=== PATIENT | female | born 1970 | race Caucasian/White ===

== ENCOUNTER 2017-01-25 22:48 | Emergency (ER) | payer MEDICARE ==
[2017-01-25 22:54] VITALS: BP 166/96
[2017-01-26] MEDS ORDERED: NORMAL SALINE 1000 ML 1,000 ML IV ONE ×2 (01:29→03:55)
[2017-01-26] MEDS ORDERED: ONDANSETRON HCL INJ/PF 4 MG/2 ML SDV IV ONE (01:29)
--- NOTE | 2017-01-26 01:35 | ER Document Report ---
ED General - General Chief Complaint: Nausea/Vomiting Stated Complaint: VOMITING Time Seen by Provider: 01/26/17 01:20 Notes: Patient is a 46-year-old female presents with complaint of vomiting all day. She has some normal pain. Pain is mostly in the left lower quadrant. No fevers. No diarrhea. Last bowel movement was 3 days ago. She says it is not abnormal for her to go that long without having bowel movements. She is on chronic pain medication. She is visiting from out of town. She is from [place]. She had recent surgery on her left lower leg. She had a femoral artery bypass performed. This was done at [facility] in [facility]. She says this has not given her any problems except for slight opening of the incision on the medial left thigh. No redness or swelling to the area. She denies any blood in her emesis. She denies any chest pain. She does have a history of coronary bypass surgery. She also has a history of acute renal failure requiring dialysis for 2 months back in the spring. She is also diabetic. She is insulin controlled. She says she has not taken her insulin today because of her vomiting. She has also not check her blood sugar. TRAVEL OUTSIDE OF THE U.S. IN LAST 30 DAYS: No - Related Data Allergies/Adverse Reactions: amlodipine Allergy (Verified 07/20/16 15:25) isosorbide [From Imdur] Allergy (Verified 07/20/16 15:25) zolpidem [From Ambien] Allergy (Verified 07/20/16 15:25) Past Medical History - Social History Smoking Status: Unknown if Ever Smoked Frequency of alcohol use: None Drug Abuse: None Family History: Reviewed & Not Pertinent Patient has suicidal ideation: No Patient has homicidal ideation: No - Past Medical History Cardiac Medical History: Reports: Hx Congestive Heart Failure, Hx DVT, Hx Heart Attack Renal/ Medical History: Denies: Hx Peritoneal Dialysis Past Surgical History: Reports: Hx Cardiac Surgery - CABG, Hx Coronary Artery Bypass Graft - x3 Review of Systems - Review of Systems Notes: My Normal Review Basic REVIEW OF SYSTEMS: CONSTITUTIONAL : Denies fever, chills, or sweats. Denies recent illness. EENT: Denies eye, ear, throat, or mouth pain or symptoms. Denies nasal or sinus congestion. CARDIOVASCULAR: Denies chest pain. RESPIRATORY: Denies cough, cold, or chest congestion. Denies shortness of breath, difficulty breathing, or wheezing. GASTROINTESTINAL: Some abdominal pain. Recurrent vomiting. Last BM: 3 days ago GENITOURINARY: Denies difficulty urinating, painful urination, burning, frequency, or blood in urine. MUSCULOSKELETAL: Denies neck or back pain or joint pain or swelling. SKIN: Denies rash or skin lesions. NEUROLOGICAL: Denies altered mental status or loss of consciousness. Denies headache. Denies weakness or paralysis or loss of use of either side. Denies problems with gait or speech. Denies sensory or motor loss. ALL OTHER SYSTEMS REVIEWED AND NEGATIVE. Physical Exam - Vital signs Vitals: Temp Pulse Resp BP Pulse Ox 98.3 F 115 H 20 166/96 H 98 01/25/17 22:49 01/25/17 22:49 01/25/17 22:49 01/25/17 22:49 01/25/17 22:49 - Notes Notes: General Appearance: Well nourished, alert, cooperative, no acute distress, mild obvious discomfort. Vitals: reviewed, See vital signs table. Head: no swelling or tenderness to the head Eyes: PERRL, EOMI, Conjuctiva clear Mouth: No decreasd moisture Lungs: No wheezing, No rales, No rhonci, No accessory muscle use, good air exchange bilaterally. Heart: Normal rate, Regular rythm, No murmur, no rub. Scar on chest wall from previous open heart surgery. Abdomen: Normal BS, soft, No rigidity, mild left lower quadrant abdominal tenderness to palpation, No guarding, no rebound, no abdominal masses, no organomegaly. Multiple scars on abdomen from previous surgeries. Extremities: , good pulses in all extremities, no swelling or tenderness in the extremities, patient has a scar at the left inguinal crease. There is just slight separation of the incisional scar. There is no surrounding redness or erythema. No signs of abscess. Patient has a long incisional scar on the left medial thigh. This appears to be healing appropriately. Patient has good capillary refill in all toes of her left leg. Patient has a small wound on the medial aspect of the left foot which appears to be healing appropriately without signs of infection. Patient has a below the knee right sided amputation. No edema. Skin: warm, dry, appropriate color, no rash Neuro: speech clear, oriented x 3, normal affect, responds appropriately to questions. Course - Re-evaluation Re-evalutation: 01/27/17 00:19 Symptoms very consistent with that of gastroparesis. She has had that several times in the past. She does take Reglan at home but was unable to hold down today. She also had hyperglycemia. She has not been taking her insulin and was not checking her blood sugars. Her blood sugars are now trending in the correct direction. She still some nausea but is no longer vomiting says that she feels that she is improving. I will discharge her home with prescription for Phenergan. I encouraged her to continue take her Reglan. I encouraged her to keep a close eye on her blood sugars. I encouraged her to return to the ER if she has worsening of her blood sugars, recurrent vomiting, worsening abdominal pain, or she feels unwell. Patient agrees with plan and will be discharged home. Dictation of this chart was performed using voice recognition software; therefore, there may be some unintended grammatical errors. - Vital Signs Vital signs: Temp Pulse Resp BP Pulse Ox 98.3 F 115 H 20 166/96 H 98 01/25/17 22:49 01/25/17 22:49 01/25/17 22:49 01/25/17 22:49 01/26/17 06:57 - Laboratory Result Diagrams: 01/26/17 02:14 01/26/17 02:14 Laboratory results interpreted by me: 01/26/17 01/26/17 01/26/17 01:53 02:14 02:14 WBC 11.0 H RBC 5.34 H RDW 17.2 H Seg Neutrophils % 78.9 H Monocytes % 2.7 L Absolute Neutrophils 8.7 H Chloride 97 L Anion Gap 20 H Glucose 396 H POC Glucose 364 H Calcium 10.3 H Direct Bilirubin 0.6 H Alkaline Phosphatase 140 H Total Protein 9.0 H Urine Protein Urine Glucose (UA) Urine Ketones Urine Blood Ur Leukocyte Esterase 01/26/17 01/26/17 05:33 06:13 WBC RBC RDW Seg Neutrophils % Monocytes % Absolute Neutrophils Chloride Anion Gap Glucose POC Glucose 224 H Calcium Direct Bilirubin Alkaline Phosphatase Total Protein Urine Protein >=500 H Urine Glucose (UA) >=500 H Urine Ketones TRACE H Urine Blood SMALL H Ur Leukocyte Esterase TRACE H - EKG Interpretation by Me Additional EKG results interpreted by me: 01/26/17 03:53 EKG shows sinus tachycardia with rate of [address] segment elevation. Some ST segment depression in the lateral leads which is unchanged in comparison to her old EKG from July 20, 2016. ME interval, QRS duration, QTc intervals are within normal range. Discharge - Discharge Clinical Impression: Gastroparesis, Hyperglycemia Vomiting Qualifiers: Vomiting type: unspecified Vomiting Intractability: unspecified Nausea presence : with nausea Qualified Code(s): R11.2 - Nausea with vomiting, unspecified Condition: Good Disposition: HOME, SELF-CARE Additional Instructions: Please return to the ER immediately if you have worsening abdominal pain, fevers , recurrent vomiting, or your blood sugars are not well controlled. Prescriptions: Promethazine HCl [Phenergan 25 mg Supp.rect] 25 mg ME Q4HP PRN #12 supp.rect PRN Reason:
[2017-01-26] MEDS ORDERED: MORPHINE SULFATE 10 MG/ML INJ IV ONE (01:46)
[2017-01-26 02:26] LABS: ABSOLUTE BASOPHILS # (AUTO) 0.1 10^3/uL (0.0-0.2); ABSOLUTE LYMPHOCYTES (AUTO) 1.9 10^3/uL (0.5-4.7); ABSOLUTE MONOCYTES (AUTO) 0.3 10^3/uL (0.1-1.4); ABSOLUTE NEUT (AUTO) 8.7 10^3/uL (1.7-8.2); BASOPHILS % (AUTO) 0.8 % (0-2); EOSINOPHILS % (AUTO) 0.2 % (0-6); HEMATOCRIT 43.7 % (36.0-47.0); HEMOGLOBIN 14.5 g/dL (12.0-15.5); HGB HCT DIFFERENCE -0.2; LYMPHOCYTES % (AUTO) 17.4 % (13-45); MEAN CORPUSCULAR HEMOGLOBIN 27.2 pg (27.0-33.4); MEAN CORPUSCULAR HGB CONC 33.2 g/dL (32.0-36.0); MEAN CORPUSCULAR VOLUME 82 fl (80-97); MONOCYTES % (AUTO) 2.7 % (3-13); RED BLOOD COUNT 5.34 10^6/uL (3.72-5.28); RED CELL DISTRIBUTION WIDTH 17.2 % (11.5-14.0); SEGMENTED NEUTROPHILS % (AUTO) 78.9 % (42-78)
--- NOTE | 2017-01-26 03:28 | RADIOLOGY REPORT (SQ) ---
EXAM DESCRIPTION: ACUTE ABDOMEN SERIES COMPLETED DATE/TIME: 01/26/2017 3:08 am REASON FOR STUDY: abdominal pain COMPARISON: CR, chest, 07/20/2016. NUMBER OF VIEWS: Three views. 4 images. TECHNIQUE: Frontal chest, supine abdomen and upright/decubitus abdomen radiographic images acquired. LIMITATIONS: None. FINDINGS: CHEST: Lungs clear of infiltrates. FREE AIR: None. No abnormal gas collections. BOWEL GAS PATTERN: Nonobstructive pattern. No dilated loops or air fluid levels. CALCIFICATIONS: No suspicious calcifications. HARDWARE: Sternotomy. Electronic stimulation device of the right paracentral pelvis. Surgical clips of the lower pelvis, bilateral groin, and right upper abdominal quadrant. Residual wire leads overl ie the lower chest. SOFT TISSUES: No gross mass or suggestion of organomegaly. BONES: No acute fracture. No worrisome bone lesions. OTHER: No other significant finding. IMPRESSION: NO RADIOGRAPHIC EVIDENCE FOR ACUTE ABDOMINAL DISEASE. TECHNICAL DOCUMENTATION: JOB ID: [id number] [employer]- All Rights Reserved
[2017-01-26 03:38] LABS: ALANINE AMINOTRANSFERASE 19 U/L (9-52); ALBUMIN 4.7 g/dL (3.5-5.0); ALKALINE PHOSPHATASE 140 U/L (38-126); ASPARTATE AMINO TRANSFERASE 16 U/L (14-36); BILIRUBIN,DIRECT 0.6 mg/dL (0.0-0.4); BLOOD UREA NITROGEN 17 mg/dL (7-20); CALCIUM 10.3 mg/dL (8.4-10.2); CARBON DIOXIDE 24 mmol/L (22-30); CHLORIDE 97 mmol/L (98-107); CREATININE RESULT 0.61 mg/dL (0.52-1.25); GLUCOSE 396 mg/dL (75-110); LIPASE 58.6 U/L (23-300); POTASSIUM 4.1 mmol/L (3.6-5.0); SODIUM 140.9 mmol/L (137-145)
[2017-01-26 03:39] LABS: ANION GAP 20 (5-19)
[2017-01-26] MEDS ORDERED: INSULIN REG, HUMAN 100 UNIT/ML 3 ML VIAL (PYX) SUBCUT ONE (03:50)
[2017-01-26] MEDS ORDERED: METOCLOPRAMIDE HCL INJ/PF 10 MG/2 ML SDV IV ONE (03:51)
[2017-01-26] MEDS ORDERED: PROMETHAZINE HCL INJ 50 MG/1 ML VIAL IM ONE (05:00)
[2017-01-26] MEDS ORDERED: PROMETHAZINE HCL INJ 25 MG/1 ML VIAL ONE (05:13)
[2017-01-26 06:31] LABS: APPEARANCE,URINE SLIGHTLY-CLOUDY; BILIRUBIN,URINE NEGATIVE (NEGATIVE); GLUCOSE, URINE >=500 mg/dL (NEGATIVE); KETONES,URINE TRACE mg/dL (NEGATIVE); LEUKOCYTE ESTERASE,URINE TRACE (NEGATIVE); NITRITE,URINE NEGATIVE (NEGATIVE); PROTEIN,URINE >=500 mg/dL (NEGATIVE); UROBILINOGEN,URINE NEGATIVE mg/dL (<2.0)
--- NOTE | 2017-01-26 08:15 | EKG REPORT ---
SEVERITY:- ABNORMAL ECG - SINUS TACHYCARDIA PROBABLE LEFT ATRIAL ABNORMALITY PROBABLE LVH WITH SECONDARY REPOL ABNRM PROBABLE INFERIOR INFARCT, AGE INDETERMINATE CONSIDER ANTERIOR INFARCT : Confirmed by: Rojas Jo MD 26-Jan-2017 08:14:29
== END 2017-01-26 07:39 | disposition home or self-care (01) ==
LOC: ER 22:48
DX: E11.43 Type 2 diabetes mellitus with diabetic autonomic (poly)neuropathy (principal); E11.65 Type 2 diabetes mellitus with hyperglycemia; K31.84 Gastroparesis; R11.2 Nausea with vomiting, unspecified; R10.32 Left lower quadrant pain; Z79.4 Long term (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 of insulin
CPT/HCPCS: 93005; 99284; 96361; 96374; 96375; 36415; 82962; 83690; 85025; 80053; 81001; 74022; 93010; J2765; J2270; A9270; J2550; J2405; J7030; J1815

== ENCOUNTER → 2017-02-15 | Outpatient (CLI) | payer MEDICARE ==
[2017-02-15 13:45] LABS: LIPASE 31.6 U/L (23-300)
--- NOTE | 2017-02-15 18:43 | RADIOLOGY REPORT (SQ) ---
EXAM DESCRIPTION: U/S ABDOMEN LIMITED W/O DOP COMPLETED DATE/TIME: 02/15/2017 6:22 pm REASON FOR STUDY: LUQ ABDOMINAL PAIN COMPARISON: None. TECHNIQUE: Sonographic sections through the left upper quadrant were obtained in varying positions. LIMITATIONS: None. FINDINGS: No splenic abnormalities are identified. The spleen measures 11.3 cm in length. No left renal abnormalities are identified. The left kidney measure 11.6 cm in length. The pancreas was juan jose ged without evidence for pancreatic masses. Pancreatic duct appeared normal. No cystic abnormalitie s were identified. IMPRESSION: No significant findings. TECHNICAL DOCUMENTATION: JOB ID: [id number] [employer]- All Rights Reserved
== END ==
LOC: LAB 13:06
PROVIDERS: ATTEND Student in an Organized Health Care Education/Training Program
DX: R10.84 Generalized abdominal pain (principal)
CPT/HCPCS: 36415; 76705; 82150; 83690

== ENCOUNTER 2017-03-01 12:15 | Emergency (ER) | payer MEDICARE ==
[2017-03-01 13:03] LABS: ABSOLUTE BASOPHILS # (AUTO) 0.1 10^3/uL (0.0-0.2); ABSOLUTE EOSINOPHILS # (AUTO) 0.2 10^3/uL (0.0-0.6); ABSOLUTE LYMPHOCYTES (AUTO) 3.5 10^3/uL (0.5-4.7); ABSOLUTE MONOCYTES (AUTO) 0.4 10^3/uL (0.1-1.4); ABSOLUTE NEUT (AUTO) 5.7 10^3/uL (1.7-8.2); BASOPHILS % (AUTO) 0.6 % (0-2); EOSINOPHILS % (AUTO) 1.7 % (0-6); HEMATOCRIT 38.6 % (36.0-47.0); HEMOGLOBIN 12.7 g/dL (12.0-15.5); HGB HCT DIFFERENCE -0.5; LYMPHOCYTES % (AUTO) 35.4 % (13-45); MEAN CORPUSCULAR HEMOGLOBIN 27.2 pg (27.0-33.4); MEAN CORPUSCULAR HGB CONC 32.9 g/dL (32.0-36.0); MEAN CORPUSCULAR VOLUME 83 fl (80-97); MONOCYTES % (AUTO) 4.5 % (3-13); RED BLOOD COUNT 4.67 10^6/uL (3.72-5.28); RED CELL DISTRIBUTION WIDTH 15.8 % (11.5-14.0); SEGMENTED NEUTROPHILS % (AUTO) 57.8 % (42-78); WHITE BLOOD COUNT 9.8 10^3/uL (4.0-10.5)
--- NOTE | 2017-03-01 13:05 | ER Document Report ---
ED Blood Pressure Problem - General Information source: Patient TRAVEL OUTSIDE OF THE [place] IN LAST 30 DAYS: No - HPI Patient complains to provider of: Low blood pressure Associated symptoms: Other - see above <RENU FREDERICK - Last Filed: 03/01/17 12:59> <NENO CARRASCO - Last Filed: 03/01/17 19:26> - General Chief Complaint: Low Blood Pressure Stated Complaint: BLOOD PRESSURE Time Seen by Provider: 03/01/17 12:29 Notes: Patient is a 46 year old female who presents to the ED with complaints of being hypotensive. Patient has a history of being anemic. Her last known level in August was 4.5. Patient states she has been hypotensive in the past. Patient denies any bleeding anywhere before. Patient denies any recent vomiting, diarrhea or dark stool. Patient had vomiting 1 week ago but states that there was no blood in it. Patient denies any difficulty breathing or any new pain. Patient states she has difficulty urinating at times which is new since she stopped dialysis in October. Patient is unsure of her blood sugar today. Patient has had some pain in her left flank. (RENU FREDERICK) - Related Data Allergies/Adverse Reactions: amlodipine Allergy (Verified 07/20/16 15:25) isosorbide [From Imdur] Allergy (Verified 07/20/16 15:25) zolpidem [From Ambien] Allergy (Verified 07/20/16 15:25) Past Medical History - General Information source: Patient - Social History Smoking Status: Never Smoker Chew tobacco use (# tins/day): No Frequency of alcohol use: None Drug Abuse: None Family History: Reviewed & Not Pertinent - Past Medical History Cardiac Medical History: Reports: Hx Congestive Heart Failure, Hx DVT, Hx Heart Attack Renal/ Medical History: Denies: Hx Peritoneal Dialysis Past Surgical History: Reports: Hx Cardiac Surgery - CABG, Hx Coronary Artery Bypass Graft - x3 <RENU FREDERICK - Last Filed: 03/01/17 12:59> Review of Systems - Review of Systems Constitutional: No symptoms reported EENT: No symptoms reported Cardiovascular: See HPI, Other - hypotensive Respiratory: See HPI. denies: Short of breath Gastrointestinal: No symptoms reported Genitourinary: See HPI, Dysuria Female Genitourinary: No symptoms reported Musculoskeletal: No symptoms reported Skin: No symptoms reported Hematologic/Lymphatic: No symptoms reported Neurological/Psychological: No symptoms reported <RENU FREDERICK - Last Filed: 03/01/17 12:59> Physical Exam - Vital signs Interpretation: Hypotensive - General General appearance: Alert In distress: None - HEENT Head: Normocephalic, Atraumatic Eyes: Normal Extraocular movements intact: Yes Pupils: PERRL - Respiratory Respiratory status: No respiratory distress Breath sounds: Normal - Cardiovascular Rhythm: Regular Heart sounds: Normal auscultation Murmur: No - Abdominal Inspection: Normal Tenderness: Nontender, Tender - tender in left lower quadrant that is chronic for patient. - Back Back: Normal - Extremities General upper extremity: Normal inspection, Normal ROM General lower extremity: Normal ROM, Other - see skin; AKA of right lower extremity - Neurological Neuro grossly intact: Yes - Psychological Associated symptoms: Normal affect, Normal mood - Skin Skin Temperature: Warm Skin Moisture: Dry Skin Color: Pale Skin irregularity: other - healing incision on left inner thigh with no erythema or tenderness <RENU FREDERICK - Last Filed: 03/01/17 12:59> Course - Laboratory Result Diagrams: 03/01/17 12:45 03/01/17 12:45 <RENU FREDERICK - Last Filed: 03/01/17 12:59> - Laboratory Result Diagrams: 03/01/17 12:45 03/01/17 12:45 <NENO CARRASCO - Last Filed: 03/01/17 19:26> - Re-evaluation Re-evalutation: 03/01/17 Patient has no complaints. No evidence for infection. Patient is not anemic and in need of a transfusion. She has no complaints. Patient and states that her blood pressure Frequently fluctuates. She has responded well to fluids. She feels well like to go home. Stable for discharge. (NENO CARRASCO) - Vital Signs Vital signs: Temp Pulse Resp BP Pulse Ox 98.4 F 64 15 161/95 H 100 03/01/17 12:20 03/01/17 12:20 03/01/17 16:01 03/01/17 16:01 03/01/17 16:01 - Laboratory Laboratory results interpreted by me: 03/01/17 03/01/17 03/01/17 12:45 12:45 12:45 RDW 15.8 H PT 21.4 H Glucose 234 H Direct Bilirubin 0.5 H AST 13 L Creatine Kinase < 20 L Discharge <RENU FREDERICK - Last Filed: 03/01/17 12:59> <NENO CARRASCO - Last Filed: 03/01/17 19:26> - Discharge Clinical Impression: Hypotension Qualifiers: Hypotension type: unspecified hypotension type Qualified Code(s): I95.9 - Hypotension, unspecified Condition: Stable Disposition: HOME, SELF-CARE Instructions: Hypotension ([facility]) Additional Instructions: Please follow-up with your doctor this week. Referrals: THERESE NEUMANN, [Primary Care Provider] - Follow up as needed Scribe Attestation: 03/01/17 19:26 I personally performed the services described in the documentation, reviewed and edited the documentation which was dictated to the scribe in my presence, and it accurately records my words and actions. (NENO CARRASCO) Scribe Documentation - Scribe Written by Jarethibe:: rachelle Whalen, 03/01/2017, 1300 acting as scribe for :: Carmela <RENU FREDERICK - Last Filed: 03/01/17 12:59>
[2017-03-01 13:15] LABS: PROTHROMBIN TIME 21.4 SEC (11.4-15.4)
[2017-03-01 13:16] LABS: ALANINE AMINOTRANSFERASE 22 U/L (9-52); ALBUMIN 4.3 g/dL (3.5-5.0); ALKALINE PHOSPHATASE 76 U/L (38-126); ANION GAP 12 (5-19); ASPARTATE AMINO TRANSFERASE 13 U/L (14-36); BILIRUBIN,DIRECT 0.5 mg/dL (0.0-0.4); BILIRUBIN,TOTAL 0.7 mg/dL (0.2-1.3); BLOOD UREA NITROGEN 13 mg/dL (7-20); CALCIUM 9.6 mg/dL (8.4-10.2); CARBON DIOXIDE 28 mmol/L (22-30); CHLORIDE 100 mmol/L (98-107); CREATININE RESULT 0.83 mg/dL (0.52-1.25); GLUCOSE 234 mg/dL (75-110); TOTAL PROTEIN 7.8 g/dL (6.3-8.2)
[2017-03-01 13:19] LABS: CREATINE KINASE < 20 U/L (30-135)
[2017-03-01 13:27] LABS: CREATINE KINASE MB 0.62 ng/mL (<4.55)
[2017-03-01] MEDS ORDERED: NORMAL SALINE 500 ML IV ONE (13:28)
[2017-03-01 13:30] LABS: TROPONIN I < 0.012 ng/mL
--- NOTE | 2017-03-01 14:09 | RADIOLOGY REPORT (SQ) ---
EXAM DESCRIPTION: CHEST SINGLE VIEW COMPLETED DATE/TIME: 03/01/2017 1:39 pm REASON FOR STUDY: hypotension COMPARISON: June 2016 EXAM PARAMETERS: NUMBER OF VIEWS: One view. TECHNIQUE: Single frontal radiographic view of the chest acquired. RADIATION DOSE: NA LIMITATIONS: None. FINDINGS: LUNGS AND PLEURA: No opacities, masses or pneumothorax. No pleural effusion. MEDIASTINUM AND HILAR STRUCTURES: No masses. Contour normal. HEART AND VASCULAR STRUCTURES: Heart normal in size. Normal vasculature. BONES: No acute findings. HARDWARE: Patient is status post median sternotomy. OTHER: No other significant finding. IMPRESSION: NO ACUTE RADIOGRAPHIC FINDING IN THE CHEST. TECHNICAL DOCUMENTATION: JOB ID: [id number]
[2017-03-01 16:09] VITALS: BP 161/95
--- NOTE | 2017-03-02 12:56 | EKG REPORT ---
SEVERITY:- ABNORMAL ECG - SINUS RHYTHM PROBABLE INFERIOR INFARCT, AGE INDETERMINATE LATERAL LEADS ARE ALSO INVOLVED : Confirmed by: Sal Solis 02-Mar-2017 12:55:00
== END 2017-03-01 17:05 | disposition home or self-care (01) ==
LOC: ER 12:15
DX: I95.9 Hypotension, unspecified (principal); Z86.2 Personal history of diseases of the blood and blood-forming organs and certain disorders involving the immune mechanism; R10.9 Unspecified abdominal pain; R30.0 Dysuria; Z88.8 Allergy status to other drugs, medicaments and biological substances; I25.2 Old myocardial infarction; Z86.718 Personal history of other venous thrombosis and embolism; Z95.1 Presence of aortocoronary bypass graft; R10.814 Left lower quadrant abdominal tenderness; Z89.611 Acquired absence of right leg above knee
CPT/HCPCS: 36415; 71010; 80053; 82550; 82553; 83605; 84484; 85025; 85610; 86850; 86900; 86901; 87040; 87086; 93005; 93010; 96360; 99285

== ENCOUNTER 2017-06-26 14:43 | Observation (INO) | payer MEDICARE ==
[2017-06-26] MEDS ORDERED: ASPIRIN 81 MG TABLET, CHEWABLE PO ONE (15:16)
[2017-06-26] MEDS ORDERED: NITROGLYCERIN 0.4 MG/TAB 25 TAB/BOTTLE SL PRN ×2 (15:37→18:36)
[2017-06-26] MEDS ORDERED: MORPHINE SULFATE 10 MG/ML INJ IV ONE (15:37)
--- NOTE | 2017-06-26 15:54 | ER Document Report ---
ED Cardiac - General Chief Complaint: Chest Pain > 30 Stated Complaint: CHEST PAIN Time Seen by Provider: 06/26/17 15:36 Mode of Arrival: Medic Information source: Patient TRAVEL OUTSIDE OF THE [place] IN LAST 30 DAYS: No - HPI Patient complains to provider of: Chest pain Use of: denies: Alcohol, Amphetamines, Bath salts, Caffeine, Cocaine, Decongestants, Other Was the onset of pain: Gradual When did pain begin: 1230 pm today Is the pain a: New problem Quality of pain: Constant Chest pain radiation location: Left arm Severity now: Moderate Severity at worst: Moderate Cardiac risk factors: Diabetes, Hypertension, + Family history, Hx CHF, Hx OK Positive cardiac history: Yes Exacerbated by: Denies Relieved by: NTG Similar symptoms previously: Yes Recently seen / treated by doctor: Yes Notes: She is also told me that she is noncompliant with medications due to financial issues. Patient does take Lyrica oxycodone baby aspirin Tylenol and Remeron. She does not take her insulin her Xarelto or any other cardiac medications. - Related Data Allergies/Adverse Reactions: amlodipine Allergy (Verified 06/26/17 14:45) isosorbide [From Imdur] Allergy (Verified 06/26/17 14:45) zolpidem [From Ambien] Allergy (Verified 06/26/17 14:45) Past Medical History - General Information source: Patient, Transfer Record, [facility] Records - Social History Smoking Status: Former Smoker Frequency of alcohol use: None Drug Abuse: None Lives with: Family Family History: Hypertension Patient has suicidal ideation: No Patient has homicidal ideation: No - Past Medical History Cardiac Medical History: Reports: Hx Congestive Heart Failure, Hx DVT, Hx Heart Attack, Other Other: She has an extensive cardiac history. She had a myocardial infarction in 2009 which was followed by CABG. Patient states after that she had an aortic balloon pump and she developed blood clots in her right lower extremity. 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 Patient states she has a history of congestive heart failure as well as diabetes and hypertension and history of kidney failure on hemodialysis in October 2016 for approximately 1 month. Patient does see Dr. Calle associated with violent. She does not have a group worker here as of yet. She moved here approximately 1 month ago. Pulmonary Medical History: Reports: Hx COPD EENT Medical History: Reports: None Neurological Medical History: Reports: None Endocrine Medical History: Reports: Hx Diabetes Mellitus Type 2 Renal/ Medical History: Denies: Hx Peritoneal Dialysis Malignancy Medical History: Reports: None GI Medical History: Reports: None Musculoskeltal Medical History: Reports Other - Right BKA Psychiatric Medical History: Reports: Hx Anxiety Traumatic Medical History: Reports: None Past Surgical History: Reports: Hx Cardiac Surgery - CABG, Hx Cholecystectomy, Hx Coronary Artery Bypass Graft - x3 Review of Systems - Review of Systems Constitutional: No symptoms reported EENT: No symptoms reported Cardiovascular: See HPI Respiratory: Short of breath Gastrointestinal: No symptoms reported Musculoskeletal: No symptoms reported Skin: No symptoms reported Hematologic/Lymphatic: Blood clots Neurological/Psychological: No symptoms reported Physical Exam - Vital signs Vitals: Temp Pulse Resp BP Pulse Ox 98.3 F 99 18 107/64 100 06/26/17 14:54 06/26/17 14:54 06/26/17 14:54 06/26/17 14:54 06/26/17 14:54 Interpretation: Normal - Notes Notes: PHYSICAL EXAMINATION: GENERAL: Medically ill-appearing , well-nourished and in no acute distress. HEAD: Atraumatic, normocephalic. EYES: Pupils equal round and reactive to light, extraocular movements intact, conjunctiva are normal. ENT: Nares patent, oropharynx clear without exudates. Moist mucous membranes. NECK: Normal range of motion, supple without lymphadenopathy LUNGS: Breath sounds clear to auscultation bilaterally and equal. No wheezes rales or rhonchi. HEART: Regular rate and rhythm + murmur ABDOMEN: Soft, nontender, nondistended abdomen. No guarding, no rebound. No masses appreciated. Female : deferred Musculoskeletal: Normal range of motion, no pitting or edema. No cyanosis. Right BKA with a healed stump NEUROLOGICAL: Cranial nerves grossly intact. Normal speech, normal gait. Normal sensory, motor exams PSYCH: Normal mood, normal affect. SKIN: Warm, Dry, normal turgor, no rashes or lesions noted. Course - Re-evaluation Re-evalutation: 06/26/17 18 Discussed and accepted by hospitalist Dr. Ruvalcaba - Vital Signs Vital signs: Temp Pulse Resp BP Pulse Ox 98.3 F 99 18 107/64 100 06/26/17 14:54 06/26/17 14:54 06/26/17 14:54 06/26/17 14:54 06/26/17 14:54 - Laboratory Result Diagrams: 06/26/17 16:20 06/26/17 16:20 Laboratory results interpreted by me: 06/26/17 06/26/17 16:20 16:20 Hct 35.8 L MCHC 36.2 H RDW 15.0 H Band Neutrophils % 1 L Carbon Dioxide 21 L Glucose 281 H Magnesium 1.5 L Creatine Kinase < 20 L - EKG Interpretation by Me EKG shows normal: Sinus rhythm Rate: Normal Rhythm: NSR - There is ST elevation 1 mm in aVR concave ST segment. There is also ST depression in 1 with T-wave inversions in 1 aVL and V4 through V6. This is unchanged when compared to previous EKGs. Also noted is Q waves in lead III and aVF. When compared to previous EKG there are: No significant change Discharge - Discharge Clinical Impression: Hypomagnesemia, Uncontrolled diabetes mellitus, Medical non-compliance Chest pain Qualifiers: Chest pain type: unspecified Qualified Code(s): R07.9 - Chest pain, unspecified Condition: Stable Disposition: ADMITTED OBSERVATION Admitting Provider: Hospitalist - [facility] Unit Admitted: Telemetry
--- NOTE | 2017-06-26 16:05 | RADIOLOGY REPORT (SQ) ---
EXAM DESCRIPTION: CHEST SINGLE VIEW COMPLETED DATE/TIME: 06/26/2017 3:53 pm REASON FOR STUDY: cp COMPARISON: 03/01/2017 EXAM PARAMETERS: NUMBER OF VIEWS: One view. TECHNIQUE: Single frontal radiographic view of the chest acquired. RADIATION DOSE: NA LIMITATIONS: None. FINDINGS: LUNGS AND PLEURA: No opacities, masses or pneumothorax. No pleural effusion. MEDIASTINUM AND HILAR STRUCTURES: No masses. Contour normal. HEART AND VASCULAR STRUCTURES: Heart normal in size. Normal vasculature. BONES: No acute findings. HARDWARE: Status post CAB OTHER: No other significant finding. IMPRESSION: NO ACUTE RADIOGRAPHIC FINDING IN THE CHEST. TECHNICAL DOCUMENTATION: JOB ID: [id number] [employer]- All Rights Reserved
[2017-06-26 16:41] LABS: PROTHROMBIN TIME 12.2 SEC (11.4-15.4)
[2017-06-26 16:51] LABS: ALANINE AMINOTRANSFERASE 23 U/L (9-52); ALBUMIN 3.7 g/dL (3.5-5.0); ALKALINE PHOSPHATASE 107 U/L (38-126); ANION GAP 17 (5-19); ASPARTATE AMINO TRANSFERASE 17 U/L (14-36); BILIRUBIN,DIRECT 0.4 mg/dL (0.0-0.4); BILIRUBIN,TOTAL 0.5 mg/dL (0.2-1.3); BLOOD UREA NITROGEN 19 mg/dL (7-20); CALCIUM 9.2 mg/dL (8.4-10.2); CARBON DIOXIDE 21 mmol/L (22-30); CHLORIDE 100 mmol/L (98-107); GLUCOSE 281 mg/dL (75-110); MAGNESIUM 1.5 mg/dL (1.6-2.3); POTASSIUM 4.7 mmol/L (3.6-5.0); SODIUM 137.9 mmol/L (137-145); TOTAL PROTEIN 7.1 g/dL (6.3-8.2)
[2017-06-26 16:53] LABS: HEMATOCRIT 35.8 % (36.0-47.0); HEMOGLOBIN 12.9 g/dL (12.0-15.5); HGB HCT DIFFERENCE 2.9; MEAN CORPUSCULAR HGB CONC 36.2 g/dL (32.0-36.0); MEAN CORPUSCULAR VOLUME 80 fl (80-97); RED BLOOD COUNT 4.45 10^6/uL (3.72-5.28); WHITE BLOOD COUNT 9.2 10^3/uL (4.0-10.5)
[2017-06-26 16:55] LABS: CREATINE KINASE < 20 U/L (30-135)
[2017-06-26 17:02] LABS: CREATINE KINASE MB 0.86 ng/mL (<4.55)
[2017-06-26 17:03] LABS: TROPONIN I < 0.012 ng/mL
[2017-06-26] MEDS ORDERED: ENOXAPARIN SODIUM INJ 80 MG/0.8 ML DISP.SYRIN SUBCUT ONE (17:22)
[2017-06-26 17:23] LABS: ABSOLUTE EOSINOPHILS# (MANUAL) 0.2 10^3/uL (0.0-0.6); BAND NEUTROPHILS % (MANUAL) 1 % (3-5); BASOPHILS % (MANUAL) 0 % (0-2); EOSINOPHILS % (MANUAL) 2 % (0-6); LYMPHOCYTES % (MANUAL) 32 % (13-45); TOTAL CELLS COUNTED 100
[2017-06-26 17:24] LABS: ANISOCYTOSIS SLIGHT; MICROCYTOSIS SLIGHT
[2017-06-26 17:25] LABS: POLYCHROMASIA SLIGHT
[2017-06-26] MEDS ORDERED: MAGNESIUM SULFATE/D5W 1 GM/100 ML RTUPB IV ONE (17:36)
[2017-06-26] MEDS ORDERED: ACETAMINOPHEN 325 MG TABLET PO PRN (18:25)
[2017-06-26] MEDS ORDERED: ZOLPIDEM TARTRATE 5 MG TABLET PO PRN (18:25)
[2017-06-26] MEDS ORDERED: IPRATROPIUM/ALBUTEROL 0.5-2.5 MG/3 ML AMPUL NEB PRN (18:25)
[2017-06-26] MEDS ORDERED: ONDANSETRON HCL INJ/PF 4 MG/2 ML SDV IV PRN (18:25)
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
[2017-06-26] MEDS ORDERED: GLUCAGON,HUMAN RECOMB 1 MG INJ IM PRN (19:01)
[2017-06-26] MEDS ORDERED: DEXTROSE 40% GEL 15 GM TUBE PO PRN ×2 (19:01)
[2017-06-26] MEDS ORDERED: DEXTROSE 50%-WATER 25 GM/50 ML DISP.SYRIN IV PRN ×2 (19:01)
[2017-06-26] MEDS: IPRATROPIUM/ALBUTEROL 0.5-2.5 MG/3 ML AMPUL NEB SCH (20:03)
[2017-06-26] MEDS: BUDESONIDE NEB 0.5 MG/2 ML AMPUL NEB SCH (20:03)
[2017-06-26 21:00] LABS: TROPONIN I < 0.012 ng/mL
[2017-06-26] MEDS: OXYCODONE-ACETAMINOPHEN 5-325 MG TABLET PO PRN (21:08)
--- NOTE | 2017-06-26 21:39 | EKG REPORT ---
SEVERITY:- ABNORMAL ECG - SINUS RHYTHM PROBABLE LEFT ATRIAL ABNORMALITY INFERIOR INFARCT, AGE INDETERMINATE NONSPECIFIC T ABNORMALITIES, ANT-LAT LEADS : Confirmed by: Sal Solis 26-Jun-2017 21:39:05
[2017-06-26] MEDS: INSULIN GLARGINE,HUM.REC.ANLOG 300 UNIT/3 ML INSULN.PEN SUBCUT SCH (23:09)
[2017-06-26] MEDS: ATORVASTATIN CALCIUM 80 MG TABLET PO SCH (23:13)
[2017-06-26] MEDS: METOCLOPRAMIDE HCL 10 MG TABLET PO SCH (23:14)
[2017-06-27] MEDS: INSULIN LISPRO 100 UNIT/ML 3 ML VIAL SUBCUT PRN ×3 (00:11→23:11)
[2017-06-27] MEDS: IPRATROPIUM/ALBUTEROL 0.5-2.5 MG/3 ML AMPUL NEB SCH ×4 (02:48→20:21)
[2017-06-27 02:50] LABS: ANION GAP 15 (5-19); BLOOD UREA NITROGEN 24 mg/dL (7-20); CALCIUM 9.2 mg/dL (8.4-10.2); CARBON DIOXIDE 21 mmol/L (22-30); CHLORIDE 101 mmol/L (98-107); CREATININE RESULT 0.61 mg/dL (0.52-1.25); GLUCOSE 220 mg/dL (75-110); MAGNESIUM 1.7 mg/dL (1.6-2.3); POTASSIUM 3.9 mmol/L (3.6-5.0); SODIUM 137.4 mmol/L (137-145)
[2017-06-27 03:14] LABS: HEMATOCRIT 34.4 % (36.0-47.0); HEMOGLOBIN 12.6 g/dL (12.0-15.5); HGB HCT DIFFERENCE 3.4; MEAN CORPUSCULAR HEMOGLOBIN 29.3 pg (27.0-33.4); MEAN CORPUSCULAR HGB CONC 36.7 g/dL (32.0-36.0); MEAN CORPUSCULAR VOLUME 80 fl (80-97); RED BLOOD COUNT 4.31 10^6/uL (3.72-5.28); RED CELL DISTRIBUTION WIDTH 15.5 % (11.5-14.0); WHITE BLOOD COUNT 8.5 10^3/uL (4.0-10.5)
[2017-06-27 03:27] LABS: ABSOLUTE EOSINOPHILS# (MANUAL) 0.1 10^3/uL (0.0-0.6); ANISOCYTOSIS 1+; BASOPHILS % (MANUAL) 0 % (0-2); EOSINOPHILS % (MANUAL) 1 % (0-6); LYMPHOCYTES % (MANUAL) 36 % (13-45); MICROCYTOSIS SLIGHT; TOTAL CELLS COUNTED 100; TOXIC GRANULATION SLIGHT; TOXIC VACUOLATION PRESENT
[2017-06-27] MEDS ORDERED: RIVAROXABAN 15 MG TABLET PO SCH (08:00)
[2017-06-27] MEDS: OXYCODONE-ACETAMINOPHEN 5-325 MG TABLET PO PRN ×3 (08:35→22:45)
[2017-06-27] MEDS: METOCLOPRAMIDE HCL 10 MG TABLET PO SCH ×4 (08:35→22:49)
[2017-06-27] MEDS: INSULIN LISPRO 100 UNIT/ML 3 ML VIAL SUBCUT SCH ×3 (08:36→16:58)
[2017-06-27] MEDS: BUDESONIDE NEB 0.5 MG/2 ML AMPUL NEB SCH ×2 (08:47→20:21)
[2017-06-27] MEDS ORDERED: ASPIRIN 81 MG TABLET, ENT COATED PO SCH (10:00)
[2017-06-27] MEDS: DOCUSATE SODIUM 100 MG CAPSULE PO SCH ×2 (10:04→17:50)
[2017-06-27] MEDS: INSULIN GLARGINE,HUM.REC.ANLOG 300 UNIT/3 ML INSULN.PEN SUBCUT SCH (12:21)
--- NOTE | 2017-06-27 12:27 | XCELERA REPORT ---
[address] [address] Transthoracic Echocardiogram Report Name: HELDER SERNA Age: 46 yrs Gender: Female : 1970 Patient Status: Inpatient Patient Location: [address] [place] [address] Study Date: 06/27/2017 10:38 AM Height: 62 in Weight: 160 lb BSA: 1.7 m2 Procedure: A complete two-dimensional transthoracic echocardiogram was performed (2D, M-mode, spectral and color flow Doppler). The study was technically difficult with many images being suboptimal in quality. Reason For Study: chf Ordering Physician: HOSSEIN CABRERA Performed By: Judith Hamilton Interpretation Summary The study was technically difficult with many images being suboptimal in quality. Left ventricular systolic function is low normal. There is borderline concentric left ventricular hypertrophy. The left ventricle is grossly normal size. Doppler measurements suggest pseudonormalized left ventricular relaxation, which is associated with grade II/IV or mild to moderate diastolic dysfunction Regional wall motion abnormalities cannot be excluded due to limited visualization. The right ventricle is mildly dilated. Right ventricular function cannot be assessed due to poor image quality. Borderline right atrial enlargement. Borderline left atrial enlargement. Interarterial septum not well visualized and not well dopplered. Cannot comment on ASD/PFO presence. There is no mitral valve stenosis. There is a trace amount of mitral regurgitation There is no aortic valve stenosis There is a trace amount of aortic regurgitation There is no tricuspid stenosis. There is a trace or physiologic amount of tricuspid regurgitation Tricuspid regurgitation jet envelope not well defined to measure RV systolic pressure accurately. The aortic root is not well visualized. The inferior vena cava was not well visualized There is no pericardial effusion. MMode/2D Measurements & Calculations RVDd: 3.0 cm LVIDd: 4.6 cm FS: 25.8 % Ao root diam: 2.2 cm IVSd: 1.0 cm LVIDs: 3.4 cm EDV(Teich): 98.8 ml LVPWd: 1.0 cm ESV(Teich): 48.7 ml Ao root area: 3.7 cm2 EF(Teich): 50.7 % Doppler Measurements & Calculations MV E max juan: MV dec slope: Ao V2 max: LV V1 max P.8 cm/sec 164.0 cm/sec 5.2 mmHg MV A max juan: 463.4 cm/sec2 Ao max PG: LV V1 max: 90.1 cm/sec MV dec time: 10.8 mmHg 114.0 cm/sec MV E/A: 0.98 0.19 sec PA V2 max: 123.1 cm/sec PA max P.1 mmHg Left Ventricle The left ventricle is grossly normal size. There is borderline concentric left ventricular hypertrophy. Left ventricular systolic function is low normal. Doppler measurements suggest pseudonormalized left ventricular relaxation, which is associated with grade II/IV or mild to moderate diastolic dysfunction. Regional wall motion abnormalities cannot be excluded due to limited visualization. Right Ventricle The right ventricle is mildly dilated. Right ventricular function cannot be assessed due to poor image quality. Atria Borderline right atrial enlargement. Borderline left atrial enlargement. Interarterial septum not well visualized and not well dopplered. Cannot comment on ASD/PFO presence. Mitral Valve The mitral valve leaflets are sclerotic, but show no functional abnormalities. There is no mitral valve stenosis. There is a trace amount of mitral regurgitation. Aortic Valve The aortic valve is sclerotic, but shows no functional abnormality. There is no aortic valve stenosis. There is a trace amount of aortic regurgitation. Tricuspid Valve The tricuspid valve is not well visualized secondary to technical limitations. There is no tricuspid stenosis. There is a trace or physiologic amount of tricuspid regurgitation. Tricuspid regurgitation jet envelope not well defined to measure RV systolic pressure accurately. Pulmonic Valve The pulmonic valve is not well visualized. Great Vessels The aortic root is not well visualized. The inferior vena cava was not well visualized. Effusions There is no pericardial effusion. : HOSSEIN CABRERA > Sal Solis
[2017-06-27] MEDS ORDERED: RIVAROXABAN 15 MG TABLET PO ONE (12:30)
[2017-06-27] MEDS ORDERED: INFLUENZA ADLT QUAD (36MOS+) 2017-18 VAC 0.5 ML SYR IM PRN (13:08)
[2017-06-27] MEDS: RIVAROXABAN 15 MG TABLET PO SCH (16:58)
[2017-06-27] MEDS ORDERED: INSULIN GLARGINE,HUM.REC.ANLOG 300 UNIT/3 ML INSULN.PEN SUBCUT SCH (22:00)
[2017-06-27] MEDS: ATORVASTATIN CALCIUM 80 MG TABLET PO SCH (22:49)
--- NOTE | 2017-06-28 00:43 | PDOC PROGRESS REPORT ---
Subjective Progress Note for:: 06/28/17 Subjective:: Relates that chest is gone but still with some short of breath ROS All organ systems evaluated and negative except in subjective All significant laboratories and diagnostics had been reviewed Reason For Visit: CHEST PAIN,DYSPNEA Physical Exam Vital Signs: Temp Pulse Resp BP Pulse Ox 98.0 F 88 16 111/64 95 06/27/17 04:20 06/27/17 04:20 06/27/17 04:20 06/27/17 04:20 06/27/17 04:20 Intake & Output 06/25/17 06/26/17 06/27/17 06:59 06:59 06:59 Output Total 300 Balance -300 General appearance: PRESENT: no acute distress, cooperative, obese Head exam: PRESENT: atraumatic, normocephalic Eye exam: PRESENT: EOMI, PERRLA Ear exam: PRESENT: TM's normal bilaterally Mouth exam: PRESENT: moist, neck supple Neck exam: PRESENT: full ROM. ABSENT: JVD, tenderness Respiratory exam: PRESENT: decreased breath sounds. ABSENT: crackles, rhonchi Cardiovascular exam: PRESENT: RRR. ABSENT: diastolic murmur, systolic murmur Vascular exam: PRESENT: normal capillary refill GI/Abdominal exam: PRESENT: normal bowel sounds, soft. ABSENT: ascites, tenderness Extremities exam: PRESENT: other - right AKA Neurological exam: PRESENT: alert, oriented to person, oriented to place, oriented to time Psychiatric exam: PRESENT: appropriate affect, normal mood Skin exam: PRESENT: normal color Results Laboratory Results: 06/27/17 02:27 06/27/17 02:27 06/27/17 06/27/17 06/27/17 02:27 02:27 02:27 WBC 8.5 RBC 4.31 Hgb 12.6 Hct 34.4 L MCV 80 MCH 29.3 MCHC 36.7 H RDW 15.5 H Plt Count 221 Seg Neutrophils % Not Reportable Lymphocytes % Not Reportable Monocytes % Not Reportable Eosinophils % Not Reportable Basophils % Not Reportable Absolute Neutrophils Not Reportable Absolute Lymphocytes Not Reportable Absolute Monocytes Not Reportable Absolute Eosinophils Not Reportable Absolute Basophils Not Reportable Sodium 137.4 Potassium 3.9 Chloride 101 Carbon Dioxide 21 L Anion Gap 15 BUN 24 H Creatinine 0.61 Est GFR ( Amer) > 60 Est GFR (Non-Af Amer) > 60 Glucose 220 H Calcium 9.2 Magnesium 1.7 TSH 2.37 06/26/17 06/27/17 20:18 02:27 Troponin I < 0.012 < 0.012 NT-Pro-B Natriuret Pep 952 H Impressions: Chest X-Ray 06/26/17 15:16 IMPRESSION: NO ACUTE RADIOGRAPHIC FINDING IN THE CHEST. Assessment & Plan - Diagnosis (1) Chest pain Qualifiers: Chest pain type: unspecified Qualified Code(s): R07.9 - Chest pain, unspecified Is this a current diagnosis for this admission?: Yes Plan: Nuclear stress pending.May relate to CF and COPD (2) Hypomagnesemia Is this a current diagnosis for this admission?: Yes Plan: Replaced in ED on admission. Trend (3) Uncontrolled diabetes mellitus Qualifiers: Diabetes mellitus type: type 2 Diabetes mellitus complication status: with circulatory complication Diabetes mellitus terminal carman insulin use: with terminal carman use Is this a current diagnosis for this admission?: Yes Plan: Increase Lantus and lispro before meals. Continue lispro sliding scale. A1C noted and expected to be elevated (4) Congestive heart failure Qualifiers: Congestive heart failure type: combined Is this a current diagnosis for this admission?: Yes Plan: Add low dose lisinopril and toprol xl (5) COPD (chronic obstructive pulmonary disease) Qualifiers: COPD type: unspecified COPD Qualified Code(s): J44.9 - Chronic obstructive pulmonary disease, unspecified Is this a current diagnosis for this admission?: Yes Plan: Add advair and continue nebs - Time Time Spent with patient: 15-24 minutes Medications reviewed and adjusted accordingly: Yes Within: within 48 hours - Inpatient Certification Based on my medical assessment, after consideration of the patient's comorbidities, presenting symptoms, or acuity I expect that the services needed warrant INPATIENT care.: Yes I certify that my determination is in accordance with my understanding of Medicare's requirements for reasonable and necessary INPATIENT services [42 CFR 412.3e].: Yes Medical Necessity: Need Close Monitoring Due to Risk of Patient Decompensation
[2017-06-28] MEDS: IPRATROPIUM/ALBUTEROL 0.5-2.5 MG/3 ML AMPUL NEB SCH ×4 (01:52→20:29)
[2017-06-28] MEDS: OXYCODONE-ACETAMINOPHEN 5-325 MG TABLET PO PRN ×5 (02:50→20:44)
[2017-06-28 05:51] LABS: ANION GAP 15 (5-19); BLOOD UREA NITROGEN 16 mg/dL (7-20); CALCIUM 9.4 mg/dL (8.4-10.2); CARBON DIOXIDE 21 mmol/L (22-30); CHLORIDE 101 mmol/L (98-107); CREATININE RESULT 0.49 mg/dL (0.52-1.25); GLUCOSE 237 mg/dL (75-110); MAGNESIUM 1.5 mg/dL (1.6-2.3); POTASSIUM 3.8 mmol/L (3.6-5.0); SODIUM 136.7 mmol/L (137-145)
[2017-06-28] MEDS: BUDESONIDE NEB 0.5 MG/2 ML AMPUL NEB SCH ×2 (08:23→20:29)
[2017-06-28] MEDS: METOCLOPRAMIDE HCL 10 MG TABLET PO SCH ×3 (08:34→16:29)
[2017-06-28] MEDS: RIVAROXABAN 15 MG TABLET PO SCH ×2 (08:34→16:29)
[2017-06-28] MEDS ORDERED: ACETAMINOPHEN 325 MG TABLET PO PRN (09:00)
--- NOTE | 2017-06-28 10:49 | Physician Advisory Note ---
Physician Advisor ProgressNote .: [facility], I have reviewed the medical record for this patient. Physician Advisor Statement: Please consider documentin. "Chronic CHF, systolic & diastolic" 2. One most likely cause of CP, at time of d/c. - Please clarify: does she have underlying Cystic Fibrosis, or what is the "CF" mentioned 06/27 as possible cause of CP? Thanks! CK
[2017-06-28] MEDS ORDERED: REGADENOSON INJ 0.4 MG/5 ML DISP.SYRIN IV ONE (11:40)
[2017-06-28] MEDS: GUAIFENESIN 600 MG TABLET.SA PO SCH (12:28)
[2017-06-28] MEDS: LISINOPRIL 5 MG TABLET PO SCH (12:28)
[2017-06-28] MEDS: ASPIRIN 81 MG TABLET, ENT COATED PO SCH (12:29)
[2017-06-28] MEDS: METOPROLOL SUCCINATE 25 MG TAB.SR.24H PO SCH (12:29)
[2017-06-28] MEDS: INSULIN LISPRO 100 UNIT/ML 3 ML VIAL SUBCUT SCH ×2 (12:33→16:29)
[2017-06-28] MEDS: INSULIN GLARGINE,HUM.REC.ANLOG 300 UNIT/3 ML INSULN.PEN SUBCUT SCH (12:34)
[2017-06-28] MEDS: FLUTICASONE/SALMETEROL DISKUS 250-50 MCG/DOSE IH SCH (13:56)
[2017-06-28] MEDS: DOCUSATE SODIUM 100 MG CAPSULE PO SCH ×2 (13:56→18:02)
[2017-06-29] MEDS: FLUTICASONE/SALMETEROL DISKUS 250-50 MCG/DOSE IH SCH ×2 (00:25→09:43)
[2017-06-29] MEDS: GUAIFENESIN 600 MG TABLET.SA PO SCH ×2 (00:25→09:42)
[2017-06-29] MEDS: ATORVASTATIN CALCIUM 80 MG TABLET PO SCH (00:25)
[2017-06-29] MEDS: METOCLOPRAMIDE HCL 10 MG TABLET PO SCH ×3 (00:25→11:16)
[2017-06-29] MEDS: INSULIN GLARGINE,HUM.REC.ANLOG 300 UNIT/3 ML INSULN.PEN SUBCUT SCH ×2 (00:26→09:42)
[2017-06-29] MEDS: INSULIN LISPRO 100 UNIT/ML 3 ML VIAL SUBCUT PRN ×3 (00:30→12:38)
[2017-06-29] MEDS: OXYCODONE-ACETAMINOPHEN 5-325 MG TABLET PO PRN ×2 (00:54→08:41)
[2017-06-29] MEDS: IPRATROPIUM/ALBUTEROL 0.5-2.5 MG/3 ML AMPUL NEB SCH ×2 (02:20→08:19)
--- NOTE | 2017-06-29 03:42 | PDOC PROGRESS REPORT ---
Subjective Progress Note for:: 06/28/17 Subjective:: Patient relates that her breathing is better and the chest pain is gone ROS All organ systems evaluated and negative except in subjective All significant laboratories and diagnostics had been reviewed Reason For Visit: CHEST PAIN,DYSPNEA Physical Exam Vital Signs: Temp Pulse Resp BP Pulse Ox 98.4 F 92 16 118/67 96 06/27/17 10:55 06/28/17 02:00 06/28/17 01:50 06/27/17 10:55 06/27/17 13:39 Intake & Output 06/26/17 06/27/17 06/28/17 06:59 06:59 06:59 Output Total 300 Balance -300 General appearance: PRESENT: no acute distress, cooperative, obese Head exam: PRESENT: atraumatic, normocephalic Eye exam: PRESENT: EOMI, PERRLA Mouth exam: PRESENT: moist, neck supple Neck exam: PRESENT: full ROM. ABSENT: JVD, tenderness Respiratory exam: PRESENT: clear to auscultation amaya Cardiovascular exam: PRESENT: RRR. ABSENT: diastolic murmur, systolic murmur Vascular exam: PRESENT: normal capillary refill GI/Abdominal exam: PRESENT: normal bowel sounds, soft. ABSENT: tenderness Extremities exam: PRESENT: full ROM. ABSENT: joint swelling, pedal edema Neurological exam: PRESENT: alert, awake, oriented to person, oriented to place , oriented to time Psychiatric exam: PRESENT: appropriate affect, normal mood Results Laboratory Results: 06/27/17 02:27 06/27/17 02:27 06/26/17 06/27/17 20:18 02:27 Troponin I < 0.012 < 0.012 NT-Pro-B Natriuret Pep 952 H Impressions: Chest X-Ray 06/26/17 15:16 IMPRESSION: NO ACUTE RADIOGRAPHIC FINDING IN THE CHEST. Assessment & Plan - Diagnosis (1) Chest pain Qualifiers: Chest pain type: unspecified Qualified Code(s): R07.9 - Chest pain, unspecified Is this a current diagnosis for this admission?: Yes Plan: Awaiting result of nuclear stress test. Likely due to CHF and COPD component (2) Hypomagnesemia Is this a current diagnosis for this admission?: Yes Plan: Replaced in ED on admission. Trend (3) Uncontrolled diabetes mellitus Qualifiers: Diabetes mellitus type: type 2 Diabetes mellitus complication status: with circulatory complication Diabetes mellitus mcc insulin use: with mcc use Is this a current diagnosis for this admission?: Yes Plan: Increase Lantus and lispro before meals. Continue lispro sliding scale. A1C noted and expected to be elevated. Patient informed (4) Congestive heart failure Qualifiers: Congestive heart failure type: combined Is this a current diagnosis for this admission?: Yes Plan: Continue low dose toprol xl and lisinopril (5) COPD (chronic obstructive pulmonary disease) Qualifiers: COPD type: unspecified COPD Qualified Code(s): J44.9 - Chronic obstructive pulmonary disease, unspecified Is this a current diagnosis for this admission?: Yes Plan: Continue present treatment - Time Time Spent with patient: 15-24 minutes Medications reviewed and adjusted accordingly: Yes Anticipated discharge: Home - Inpatient Certification Based on my medical assessment, after consideration of the patient's comorbidities, presenting symptoms, or acuity I expect that the services needed warrant INPATIENT care.: Yes I certify that my determination is in accordance with my understanding of Medicare's requirements for reasonable and necessary INPATIENT services [42 CFR 412.3e].: Yes Medical Necessity: Need Close Monitoring Due to Risk of Patient Decompensation
[2017-06-29] MEDS: BUDESONIDE NEB 0.5 MG/2 ML AMPUL NEB SCH (08:21)
[2017-06-29] MEDS: INSULIN LISPRO 100 UNIT/ML 3 ML VIAL SUBCUT SCH ×2 (08:39→12:36)
[2017-06-29] MEDS: RIVAROXABAN 15 MG TABLET PO SCH (08:41)
[2017-06-29] MEDS: METOPROLOL SUCCINATE 25 MG TAB.SR.24H PO SCH (09:37)
[2017-06-29] MEDS: DOCUSATE SODIUM 100 MG CAPSULE PO SCH (09:37)
[2017-06-29] MEDS: LISINOPRIL 5 MG TABLET PO SCH (09:37)
[2017-06-29] MEDS: ASPIRIN 81 MG TABLET, ENT COATED PO SCH (09:42)
[2017-06-29 12:58] VITALS: BP 101/57
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
--- NOTE | 2017-06-30 15:09 | DRAGON STRESS TEST REPORT ---
Intravenous Lexiscan Cardiolite stress test using single photon emmision computerized tomography. Date of procedure: 06/28/2017. Ordering Provider: Dr.Mila Ruvalcaba. Patient 's status: In Patient Indication: Chest pain. Coronary risk factors: Age, diabetes mellitus, hypertension, dyslipidemia, and family history of coronary artery disease. Resting EKG: Sinus Rhythm. T inversion diffusely. Stress EKG: No changes of ischemia. The patient no chest pain or discomfort, and there were no arrhythmias seen. Reason for termination: Protocol. Conclusions: Normal EKG and hemodynamic response to IV Lexiscan. Nuclear data: At rest the patient was given 11.98 millicuries of technetium 99m sestamibi injected intravenously. As per protocol rest non gated SPECT images were obtained. Subsequently the patient was given intravenous Lexiscan at a dose of 0.4 mg in 5 mL intravenously, followed by flush with normal saline. Subsequently the stress dose of 34.4 millicuries of technetium 99m sestamibi was injected intravenously. As per protocol stress gated images were obtained. Nuclear interpretation: Review of images showed that there is a small area of the basal inferior wall of the distal lateral wall and the apical interventricular septum which had a perfusion defect in both the rest and stress images. These areas had decreased motion contraction and thickening by gated study. The rest of the segments of the myocardium had normal perfusion at rest, and normal perfusion post stress with IV Lexiscan. The rest of the segments of the myocardium had normal motion , contraction, and thickening by gated study. T. I D. ratio was normal at 1.29. Visually this is not reliable computer read rest, and stress left ventricular ejection fraction were %, and %, respectively. Visually both the stress and rest ejection fractions were normal , and greater than 55%. Conclusion: 1. There is no scintigraphic evidence of Lexiscan induced myocardial ischemia. 2. There is scintigraphic evidence of myocardial infarction/scar involving the basal inferior wall, the distal lateral wall, and a small area of the apical interventricular septum.. Recommendations: Aggressive risk factor modification, and treating the underlying co- morbidities. Aggressive treatment of coronary artery disease with statins, beta blockers, nitrates, aspirin, if no allergies. [facility]
== END 2017-06-29 13:51 | disposition home or self-care (01) ==
LOC: ER 14:43 → EH 18:19 → 4S 06-27 10:42
PROVIDERS: ADMIT Family Medicine; ATTEND Family Medicine
PROC: 3E0234Z Introduction of Serum, Toxoid and Vaccine into Muscle, Percutaneous Approach (ICD-10-PCS; principal; 2017-06-29)
DX: R07.9 Chest pain, unspecified (principal); E83.42 Hypomagnesemia; E11.65 Type 2 diabetes mellitus with hyperglycemia; E11.59 Type 2 diabetes mellitus with other circulatory complications; E11.51 Type 2 diabetes mellitus with diabetic peripheral angiopathy without gangrene; I50.31 Acute diastolic (congestive) heart failure; J44.1 Chronic obstructive pulmonary disease with (acute) exacerbation; G47.30 Sleep apnea, unspecified; I25.10 Atherosclerotic heart disease of native coronary artery without angina pectoris; I25.2 Old myocardial infarction; Z79.899 Other long term (current) drug therapy; Z79.82 Long term (current) use of aspirin; Z95.1 Presence of aortocoronary bypass graft; Z86.718 Personal history of other venous thrombosis and embolism; Z89.511 Acquired absence of right leg below knee; Z90.49 Acquired absence of other specified parts of digestive tract; Z87.891 Personal history of nicotine dependence; Z82.49 Family history of ischemic heart disease and other diseases of the circulatory system; Z83.3 Family history of diabetes mellitus; Z91.14 Patient's other noncompliance with medication regimen; Z59.8 Other problems related to housing and economic circumstances; Z23 Encounter for immunization; Z98.890 Other specified postprocedural states
CPT/HCPCS: 93005; 99285; 96372; 96375; 96365; 36415 ×3; 82553; 82962 ×4; 82550; 83735 ×3; 84443; 85025 ×2; 85610; 81025; 80048 ×2; 80053; 84484 ×2; 83036; 83880; 93306; 93017; 71010; 78452; 90686; 93010; 94640 ×4; A9500; J2785; A9270 ×31; J2270; J3475; J1650; J3490; Q9969; G0378; J1815; J7620

== ENCOUNTER 2017-11-25 21:22 | Emergency (ER) | payer MEDICARE ==
[2017-11-25] MEDS ORDERED: CEPHALEXIN 500 MG CAPSULE PO ONE (22:54)
[2017-11-25] MEDS ORDERED: SULFAMETHOXAZOLE/TRIMETHOPRIM 800-160 MG TABLET PO ONE (22:54)
--- NOTE | 2017-11-25 23:00 | ER Document Report ---
ED General - General Chief Complaint: Wound Infection Stated Complaint: FOOT LACERATION Time Seen by Provider: 11/25/17 21:56 Notes: Patient is a 47-year-old female with a past medical history of peripheral arterial disease status post right BKA, hypertension, hyperlipidemia, diabetes with insulin dependence, atrial fibrillation, who presents with 1 month of nonhealing wounds on her left foot. The patient reports that nothing is new or different about these wounds today with that she is concerned that they may becoming infected as they are not healing. Her main concern is a area of an necrotic Escher on the lateral aspect of the left foot. She has been cleaning the area with alcohol and peroxide with no significant change. Nothing worsens the lesion. She is currently not taking any of her prescribed medications due to lack of ability of affording them. She has not spoken to her primary care doctor regarding this issue but is scheduled to see her on the 15 of this month. She has not had any fever or constitutional symptoms. She denies any significant pain to the area. She has a history of in the past that she reports are similar to this presentation. TRAVEL OUTSIDE OF THE [place] IN LAST 30 DAYS: No - Related Data Allergies/Adverse Reactions: amlodipine Allergy (Verified 11/25/17 21:33) isosorbide [From Imdur] Allergy (Verified 11/25/17 21:33) zolpidem [From Ambien] Allergy (Verified 11/25/17 21:33) Past Medical History - General Information source: Patient - Social History Smoking Status: Never Smoker Chew tobacco use (# tins/day): No Frequency of alcohol use: None Drug Abuse: None Lives with: Family Family History: CVA, DM, Hypertension Patient has suicidal ideation: No Patient has homicidal ideation: No - Past Medical History Cardiac Medical History: Reports: Hx Atrial Fibrillation, Hx Congestive Heart Failure, Hx Coronary Artery Disease, Hx DVT, Hx Heart Attack, Hx Peripheral Vascular Disease Pulmonary Medical History: Reports: Hx COPD Endocrine Medical History: Reports: Hx Diabetes Mellitus Type 2 Renal/ Medical History: Reports: Hx Kidney Stones. Denies: Hx Peritoneal Dialysis GI Medical History: Reports: Hx Hiatal Hernia Psychiatric Medical History: Reports: Hx Anxiety, Hx Depression Past Surgical History: Reports: Hx Abdominal Surgery, Hx Cardiac Surgery - CABG , Hx Cholecystectomy, Hx Coronary Artery Bypass Graft - x3, Hx Herniorrhaphy, Hx Tubal Ligation Review of Systems - Review of Systems Notes: Constitutional: Negative for fever. HENT: Negative for sore throat. Eyes: Negative for visual changes. Cardiovascular: Negative for chest pain. Respiratory: Negative for shortness of breath. Gastrointestinal: Negative for abdominal pain, vomiting or diarrhea. Genitourinary: Negative for dysuria. Musculoskeletal: Negative for back pain. Skin: Positive for multiple left foot wounds. Neurological: Negative for headaches, weakness or numbness. 10 point ROS negative except as marked above and in HPI. Physical Exam - Vital signs Interpretation: Normal Notes: PHYSICAL EXAMINATION: GENERAL: Appears older than stated age but in no acute distress HEAD: Atraumatic, normocephalic. EYES: Pupils equal round and reactive to light, extraocular movements intact, sclera anicteric, conjunctiva are normal. ENT: nares patent, oropharynx clear without exudates. Moist mucous membranes. NECK: Normal range of motion, supple without lymphadenopathy LUNGS: Breath sounds clear to auscultation bilaterally and equal. No wheezes rales or rhonchi. HEART: Regular rate and rhythm without murmurs ABDOMEN: Soft, nontender, normoactive bowel sounds. No guarding, no rebound. No masses appreciated. EXTREMITIES: Right BKA is present. The left foot has multiple open wounds on it although the only one of significant note is a 1 x 1 cm eschar with surrounding erythema on the mid lateral aspect of the left foot. No purulent drainage from the area. No induration. NEUROLOGICAL: No focal neurological deficits. Moves all extremities spontaneously and on command. PSYCH: Normal mood, normal affect. SKIN: Warm, Dry, normal turgor, foot lesions as above Course - Re-evaluation Re-evalutation: 11/25/17 23:00 Patient presents with multiple chronic nonhealing wounds on her left foot, but is most concerned about a wound to her left lateral midfoot that has any chronic pressure and some mild erythema but no purulent drainage or malodorous sent to the area. Patient is not on any of her home medications due to lack of access. She is not on any insulin, and does not take her anticoagulants or antiplatelet agents. I suspect that this is the etiology of the wound not healing as the patient has a known history of peripheral arterial disease as well as uncontrolled diabetes. 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 You need to follow-up with your primary care doctor urgently and discuss a mechanism by which he can begin taking all of your long-term medications which you will need to be on. Please begin taking metformin and glipizide have been prescribed based on your report that you are unable to afford the insulin that you are being prescribed. Please return if you develop fever, spreading redness from your foot wound, chills, persistent vomiting or any other symptoms that are worrisome to you. Prescriptions: Cephalexin Monohydrate [Keflex 500 mg Capsule] 500 mg PO Q6H 7 Days capsule Glipizide 10 mg PO DAILY #30 tablet Metformin HCl [Glucophage 500 mg Tablet] 500 mg PO BID #60 tablet Sulfamethoxazole/Trimethoprim [Bactrim Ds Tablet] 1 tab PO BID #14 tablet Referrals: THERESE NEUMANN DO [Primary Care Provider] - Follow up as needed
[2017-11-25 23:12] LABS: HEMOGLOBIN 13.3 g/dL (12.0-15.5); MEAN CORPUSCULAR HEMOGLOBIN 28.9 pg (27.0-33.4); MEAN CORPUSCULAR HGB CONC 34.9 g/dL (32.0-36.0); MEAN CORPUSCULAR VOLUME 83 fl (80-97); PLATELET COUNT 252 10^3/uL (150-450); RED BLOOD COUNT 4.58 10^6/uL (3.72-5.28)
[2017-11-25 23:23] LABS: ANION GAP 15 (5-19); BLOOD UREA NITROGEN 14 mg/dL (7-20); CALCIUM 9.4 mg/dL (8.4-10.2); CARBON DIOXIDE 21 mmol/L (22-30); CHLORIDE 100 mmol/L (98-107); GLUCOSE 377 mg/dL (75-110); POTASSIUM 4.4 mmol/L (3.6-5.0); SODIUM 135.6 mmol/L (137-145)
--- NOTE | 2017-11-25 23:35 | RADIOLOGY REPORT (SQ) ---
EXAM DESCRIPTION: FOOT LEFT COMPLETE COMPLETED DATE/TIME: 11/25/2017 11:25 pm REASON FOR STUDY: non-healing wound COMPARISON: None. NUMBER OF VIEWS: Three views left foot. LIMITATIONS: None. FINDINGS: Mild soft tissue swelling along the dorsal forefoot. No bone resorption, fracture or subl uxation or dislocation. No ankle joint effusion. No radiopaque foreign body. Regional vascular alysia cifications. OTHER: No other significant finding. IMPRESSION: No radiographic evidence of osteomyelitis. Soft tissue swelling. TECHNICAL DOCUMENTATION: JOB ID: [id number] Reading location - IP/workstation name: [email or web address]
[2017-11-25 23:42] LABS: ABSOLUTE LYMPHOCYTES# (MANUAL) 2.4 10^3/uL (0.5-4.7); ABSOLUTE MONOCYTES # (MANUAL) 0.5 10^3/uL (0.1-1.4); BASOPHILS % (MANUAL) 0 % (0-2); EOSINOPHILS % (MANUAL) 2 % (0-6); LYMPHOCYTES % (MANUAL) 29 % (13-45); MONOCYTES % (MANUAL) 6 % (3-13); SEGMENTED NEUTROPHILS % (MAN) 62 % (42-78); TOTAL CELLS COUNTED 100
[2017-11-25 23:43] LABS: ANISOCYTOSIS 1+; TOXIC GRANULATION 1+
[2017-11-25 23:44] LABS: PLATELET COMMENT ADEQUATE
[2017-11-26] MEDS ORDERED: GLIPIZIDE 10 MG TABLET PO ONE (00:28)
[2017-11-26] MEDS ORDERED: METFORMIN HCL 500 MG TABLET PO ONE (00:28)
== END 2017-11-26 01:30 | disposition home or self-care (01) ==
LOC: ER 21:22
DX: L97.521 Non-pressure chronic ulcer of other part of left foot limited to breakdown of skin (principal); E11.621 Type 2 diabetes mellitus with foot ulcer; E11.65 Type 2 diabetes mellitus with hyperglycemia; Z89.511 Acquired absence of right leg below knee; E78.00 Pure hypercholesterolemia, unspecified; I10 Essential (primary) hypertension; Z79.4 Long term (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 of insulin; Z87.442 Personal history of urinary calculi; Z95.1 Presence of aortocoronary bypass graft; Z90.49 Acquired absence of other specified parts of digestive tract; Z98.51 Tubal ligation status
CPT/HCPCS: 99283; 36415; 82962; 85025; 80048; 83036; 73630; A9270 ×4; J3490

== ENCOUNTER → 2017-12-18 | Outpatient (CLI) | payer MEDICAID, MEDICARE ==
--- NOTE | 2017-12-19 08:10 | XCELERA REPORT ---
[address] [address] Lower Extremity Arterial Evaluation Name: HELDER SERNA Age: 47 yrs Gender: Female : 1970 Patient Status: Outpatient Patient Location: Study Date: 12/18/2017 03:12 PM Procedure: A color flow and duplex scan of the lower extremity arteries was performed bilaterally with velocity and waveform anaylsis. Ankle brachial indicies performed. 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 Monophasic to the Popliteal. Below knee amputation.. 20-49 % stenosis at the Common Femoral artery. Sequential disease. Ankle Brachial index not possible. Left Side Arterial Evaluation Normal velocity and biphasic waveforms noted in the Common Femoral artery. Increased velocity in the Deep Femoral. Monophasic with sharply decreased velocity, waveforms to the infrageniculate vessels. A graft, likely Femero- Popliteal is occluded. 20-49 % stenosis at the Femoral artery. Severe sequential disease. Ankle Brachial index is 0.65 in the Posterior Tibial artery. occluded Dorsalis Pedis. Critical Findings Discussed with THEODORA Kelsey. Interpretation Summary Severe hemodynamically significant lesions in the bilateral lower extremities, on duplex imaging, at rest. Consistent with limb threatening ischemia on the left. : LEEANNE KELSEY > Gabriel Camacho
== END ==
LOC: SP 14:36
PROVIDERS: ATTEND Nurse Practitioner
DX: L97.522 Non-pressure chronic ulcer of other part of left foot with fat layer exposed (principal)
CPT/HCPCS: 93922; 93925

== ENCOUNTER → 2018-02-27 | Outpatient (CLI) | payer MEDICARE, MEDICAID ==
[2018-02-27 13:31] LABS: ABSOLUTE BASOPHILS # (AUTO) 0.1 10^3/uL (0.0-0.2); ABSOLUTE EOSINOPHILS # (AUTO) 0.2 10^3/uL (0.0-0.6); ABSOLUTE LYMPHOCYTES (AUTO) 3.5 10^3/uL (0.5-4.7); ABSOLUTE MONOCYTES (AUTO) 0.3 10^3/uL (0.1-1.4); ABSOLUTE NEUT (AUTO) 6.4 10^3/uL (1.7-8.2); BASOPHILS % (AUTO) 0.9 % (0-2); EOSINOPHILS % (AUTO) 1.5 % (0-6); HEMATOCRIT 37.7 % (36.0-47.0); HEMOGLOBIN 12.6 g/dL (12.0-15.5); LYMPHOCYTES % (AUTO) 33.7 % (13-45); MEAN CORPUSCULAR HEMOGLOBIN 27.6 pg (27.0-33.4); MEAN CORPUSCULAR HGB CONC 33.3 g/dL (32.0-36.0); MEAN CORPUSCULAR VOLUME 83 fl (80-97); MONOCYTES % (AUTO) 2.8 % (3-13); PLATELET COUNT 280 10^3/uL (150-450); RED BLOOD COUNT 4.55 10^6/uL (3.72-5.28); RED CELL DISTRIBUTION WIDTH 16.3 % (11.5-14.0); SEGMENTED NEUTROPHILS % (AUTO) 61.1 % (42-78); TOTAL CELLS COUNTED % (AUTO) 100 %; WHITE BLOOD COUNT 10.5 10^3/uL (4.0-10.5)
[2018-02-27 13:56] LABS: ALANINE AMINOTRANSFERASE 16 U/L (9-52); ALBUMIN 3.8 g/dL (3.5-5.0); ALKALINE PHOSPHATASE 87 U/L (38-126); ANION GAP 16 (5-19); ASPARTATE AMINO TRANSFERASE 19 U/L (14-36); BILIRUBIN,DIRECT 0.3 mg/dL (0.0-0.4); BILIRUBIN,TOTAL 0.4 mg/dL (0.2-1.3); BLOOD UREA NITROGEN 23 mg/dL (7-20); C-REACTIVE PROTEIN 10.3 mg/L (<10.0); CALCIUM 9.6 mg/dL (8.4-10.2); CARBON DIOXIDE 25 mmol/L (22-30); CHLORIDE 97 mmol/L (98-107); GLUCOSE 326 mg/dL (75-110); POTASSIUM 4.8 mmol/L (3.6-5.0); SODIUM 138.1 mmol/L (137-145); TOTAL PROTEIN 7.3 g/dL (6.3-8.2)
[2018-02-27 13:59] LABS: ERYTHROCYTE SEDIMENTATION RATE 71 mm/hr (0-20)
--- NOTE | 2018-02-27 14:37 | RADIOLOGY REPORT (SQ) ---
EXAM DESCRIPTION: FOOT LEFT COMPLETE COMPLETED DATE/TIME: 02/27/2018 12:20 pm REASON FOR STUDY: NON PRESSURE ULCER LEFT FOOT L97.522 NON-PRS CHRONIC ULCER OTH PRT LEFT FOOT W FA T LAYER E11.621 TYPE 2 DIABETES MELLITUS WITH FOOT ULCER COMPARISON: 11/25/2017. NUMBER OF VIEWS: Three views. TECHNIQUE: AP, lateral and oblique radiographic images acquired of the left foot. LIMITATIONS: None. FINDINGS: MINERALIZATION: Normal. BONES: No acute fracture or dislocation. No worrisome bone lesions. JOINTS: No effusions. SOFT TISSUES: Lateral soft tissue defect at the base of the 5th metatarsal. No gas in the soft tissu es No foreign body. OTHER: No other significant finding. IMPRESSION: LATERAL SOFT TISSUE ULCER ADJACENT TO THE BASE OF THE 5TH METATARSAL. NO GAS IN THE SOF T TISSUES AND NO RADIOPAQUE FOREIGN BODY. NO RADIOGRAPHIC EVIDENCE OF OSTEOMYELITIS. TECHNICAL DOCUMENTATION: JOB ID: [id number] [employer]- All Rights Reserved Reading location - IP/workstation name: [email or web address]
== END ==
LOC: OD 11:57
PROVIDERS: ATTEND Nurse Practitioner
DX: E11.621 Type 2 diabetes mellitus with foot ulcer (principal); L97.522 Non-pressure chronic ulcer of other part of left foot with fat layer exposed
CPT/HCPCS: 36415; 80053; 83036; 85025; 85652; 86140

== ENCOUNTER 2018-06-17 19:40 | Emergency (ER) | payer MEDICAID, MEDICARE ==
[2018-06-17 20:59] VITALS: BP 118/66
[2018-06-17] MEDS ORDERED: OXYCODONE-ACETAMINOPHEN 5-325 MG TABLET PO ONE (21:56)
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
[2018-06-18] MEDS ORDERED: DIPH/PERTUSS(ACELL)/TETANUS VAC/PF 0.5 ML SYR (>=10YO) IM ONE (00:09)
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
== END 2018-06-18 00:50 | disposition home or self-care (01) ==
LOC: ER 19:40
DX: T23.131A Burn of first degree of multiple right fingers (nail), not including thumb, initial encounter (principal); X08.8XXA Exposure to other specified smoke, fire and flames, initial encounter; Y92.009 Unspecified place in unspecified non-institutional (private) residence as the place of occurrence of the external cause; E11.42 Type 2 diabetes mellitus with diabetic polyneuropathy; E11.51 Type 2 diabetes mellitus with diabetic peripheral angiopathy without gangrene; Z79.4 Long term (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 of insulin; Z95.1 Presence of aortocoronary bypass graft
CPT/HCPCS: 90471; 90715; 99283

== ENCOUNTER 2018-07-02 19:12 | Emergency (ER) | payer MEDICARE ==
[2018-07-02] MEDS ORDERED: ACETAMINOPHEN 325 MG TABLET PO ONE (19:49)
--- NOTE | 2018-07-02 19:55 | ER Document Report ---
ED Fall - General Chief Complaint: Fall Injury Stated Complaint: FALL Time Seen by Provider: 07/02/18 19:37 Mode of Arrival: Wheelchair Information source: Patient Notes: 47-year-old female presented to ED for complaint of pain to her right shoulder elbow and wrist. She states she was laying on a hollins size mattress that was sitting on top of a box spring sitting on the floor she was laying on her stomach when she leaned over to get something and fell off the bed. She states she thinks she twisted her shoulder and elbow underneath of her. She is a right BKA and states she could not catch herself as she is top-heavy. TRAVEL OUTSIDE OF THE [place] IN LAST 30 DAYS: No - HPI Occurred: Just prior to arrival Where: Home, Indoors Context: Slipped Associated symptoms: None Location of injury/pain: Elbow, Shoulder, Wrist Quality of pain: No pain Severity: Moderate Pain Level: 4 - Related data Allergies/Adverse Reactions: amlodipine Allergy (Verified 11/25/17 21:33) isosorbide [From Imdur] Allergy (Verified 11/25/17 21:33) zolpidem [From Ambien] Allergy (Verified 11/25/17 21:33) Past Medical History - General Information source: Patient - Social History Smoking Status: Never Smoker Frequency of alcohol use: None Drug Abuse: None Lives with: Family Family History: CVA, DM, Hypertension Patient has suicidal ideation: No Patient has homicidal ideation: No - Past Medical History Cardiac Medical History: Reports: Hx Atrial Fibrillation, Hx Congestive Heart Failure, Hx Coronary Artery Disease, Hx DVT, Hx Heart Attack, Hx Peripheral Vascular Disease Pulmonary Medical History: Reports: Hx COPD EENT Medical History: Reports: None Neurological Medical History: Reports: None Endocrine Medical History: Reports: Hx Diabetes Mellitus Type 2 Renal/ Medical History: Reports: Hx Kidney Stones, Hx Renal Insufficiency Malignancy Medical History: Reports: None GI Medical History: Reports: Hx Gastroesophageal Reflux Disease, Hx Hiatal Hernia, Hx Irritable Bowel Musculoskeletal Medical History: Reports Hx Musculoskeletal Deformity, Reports Hx Musculoskeletal Trauma Skin Medical History: Reports Hx Cellulitis Psychiatric Medical History: Reports: Hx Anxiety, Hx Depression Traumatic Medical History: Reports: Other - Right BKA Infectious Medical History: Reports: None Past Surgical History: Reports: Hx Abdominal Surgery, Hx Cardiac Surgery - CABG , Hx Cholecystectomy, Hx Coronary Artery Bypass Graft - x3, Hx Tubal Ligation, Other - Ventral hernia repair Review of Systems - Review of Systems Constitutional: No symptoms reported EENT: No symptoms reported Cardiovascular: No symptoms reported Respiratory: No symptoms reported Gastrointestinal: No symptoms reported Genitourinary: No symptoms reported Female Genitourinary: No symptoms reported Musculoskeletal: Joint pain - Right shoulder elbow and wrist pain. denies: Joint swelling Skin: No symptoms reported Hematologic/Lymphatic: No symptoms reported Neurological/Psychological: No symptoms reported -: Yes All other systems reviewed and negative Physical Exam - Vital signs Vitals: Temp Pulse Resp BP Pulse Ox 99.7 F 104 H 16 197/92 H 98 07/02/18 19:14 07/02/18 19:14 07/02/18 19:14 07/02/18 19:14 07/02/18 19:14 Interpretation: Normal - General General appearance: Appears well, Alert - HEENT Head: Normocephalic, Atraumatic Eyes: Normal Pupils: PERRL - Respiratory Respiratory status: No respiratory distress Chest status: Nontender Breath sounds: Normal Chest palpation: Normal - Cardiovascular Rhythm: Regular Heart sounds: Normal auscultation Murmur: No - Abdominal Inspection: Normal Distension: No distension Bowel sounds: Normal Tenderness: Nontender Organomegaly: No organomegaly - Back Back: Normal, Nontender - Extremities General upper extremity: Normal inspection, Normal color, Normal ROM, Normal temperature General lower extremity: Nontender, Normal color, Normal ROM, Normal temperature , Normal weight bearing. No: Normal inspection - Right BKA, Antonio's sign Shoulder: Tender Elbow: Tender Wrist: Tender, Limited ROM - Patient has limited active range of motion but has full passive range of motion patient has strong resistence when doing passive range of motion. No: Axial load of thumb pain, Deformity, Dislocation, Ecchymosis, Navicular tenderness Calf: No: Normal - Right BKA - Neurological Neuro grossly intact: Yes Cognition: Normal Orientation: AAOx4 Oxly Coma Scale Eye Opening: Spontaneous Valeri Coma Scale Verbal: Oriented Valeri Coma Scale Motor: Obeys Commands Oxly Coma Scale Total: 15 Speech: Normal Motor strength normal: LUE, RUE, LLE, RLE Sensory: Normal - Psychological Associated symptoms: Normal affect, Normal mood - Skin Skin Temperature: Warm Skin Moisture: Dry Skin Color: Normal Course - Vital Signs Vital signs: Temp Pulse Resp BP Pulse Ox 99.5 F 105 H 16 188/99 H 98 07/02/18 21:05 07/02/18 21:05 07/02/18 21:05 07/02/18 21:05 07/02/18 21:05 - Diagnostic Test Radiology reviewed: Image reviewed, Reports reviewed Procedures - Immobilization Right Shoulder Time completed: 21:10 Pre-Proc Neuro Vasc Exam: Normal Immobilizer type: Sling Performed by: RN Post-Proc Neuro Vasc Exam: Normal Alignment checked and good: Yes Discharge - Discharge Clinical Impression: fall off matress on floor, Pain in right elbow, Pain in right wrist Pain in right shoulder Qualifiers: Chronicity: acute Qualified Code(s): M25.511 - Pain in right shoulder Condition: Stable Disposition: HOME, SELF-CARE Instructions: Forearm Exercise Program ([facility]), Range of Motion Exercises ([facility]), Exercise Program for the Shoulder ([facility]) Additional Instructions: CONTUSION: Your injury has resulted in a contusion -- a crushing of the deep tissues. No injury to important structures was detected during the physician's exam. Contusions vary in the amount of pain they cause, and in the length of time required for healing. Typically, the area will become bruised, and will remain painful to touch for two or three weeks. However, most patients are back to working and playing within a few days. After the initial period of rest and cold-packs, your symptoms (together with the doctor's recommendations) will determine how rapidly you can get back to full activity. Usually this means "do what feels okay, but don't do things that hurt." If re-examination was recommended, it's important to follow up as instructed. Call the doctor or return any time if pain increases, if swelling becomes severe, if you develop numbness or weakness in an injured extremity, or if any other alarming symptoms occur. USE OF TYLENOL (ACETAMINOPHEN): Acetaminophen may be taken for pain relief or fever control. It's much safer than aspirin, offering a wider range of "safe" dosages. It is safe during . Some brand names are Tylenol, Panadol, Datril, Anacin 3, Tempra, and Liquiprin. Acetaminophen can be repeated every four hours. The following are maximum recommended dosages: WEIGHT Dose Drops Elixir Chewable( 80mg) (LBS.) drprs=droppers tsp=teaspoon 6 40 mg 0.4 ml (1/2) 6-11 80 mg 0.8 ml (full) tsp 1 tab 12-16 120 mg 1 1/2 drprs 3/4 tsp 1 1/2 tabs 17-23 160 mg 2 drprs 1 tsp 2 tabs 24-30 240 mg 3 drprs 1 1/2 tsp 3 tabs 30-35 320 mg 2 tsp 4 tabs 36-41 360 mg 2 1/4 tsp 4 1/2 tabs 42-47 400 mg 2 1/2 tsp 5 tabs 48-53 480 mg 3 tsp 6 tabs 54-59 520 mg 3 1/4 tsp 6 1/2 tabs 60-64 560 mg 3 1/2 tsp 7 tabs 65-70 600 mg 3 3/4 tsp 7 1/2 tabs 71-76 640 mg 4 tsp 8 tabs 77-82 720 mg 4 1/2 tsp 9 tabs 83-88 800 mg 5 tsp 10 tabs >89 pounds or adults 650 mg to 900 mg Acetaminophen can be repeated every four hours. Maximum dose not to exceed 4000 mg a day. These maximum recommended dosages are slightly higher than the dosages written on the product container, but these dosages are very safe and below the toxic dosage for acetaminophen. ICE PACKS: Apply ice packs frequently against the painful area. Many different schedules are recommended, such as "20 minutes on, 20 minutes off" or "one hour ice, two hours rest." If you need to work, you may need to go longer between ice treatments. You should plan to have the area ice packed AT LEAST one fourth of the time. The ice should be applied over the wrap, tape, or splint, or over a layer of cloth -- not directly against the skin. Some ice bags have a built-in cloth and can be put directly on the skin. WARM PACKS: After approximately two days, apply gentle heat (such as a heating pad or hot water bottle) for about 20 to 30 minutes about every two hours -- at least four times daily. Warmth and elevation will help you make a more rapid recovery , and will ease the pain considerably. Do not use HOT heat, and never apply heat for longer than 30 minutes. The continuous heat can invisibly damage skin and muscles -- even when no burn is seen on the surface. Damaged muscles can make you MORE sore. Please take your blood pressure medicine as soon as you get home for your elevated blood pressure. Take your pain medicine and your muscle relaxers when you get home. The x-rays are negative for any bony injuries to your right shoulder elbow or wrist. FOLLOW-UP CARE: If you have been referred to a physician for follow-up care, call the physician s office for an appointment as you were instructed or within the next two days. If you experience worsening or a significant change in your symptoms, notify the physician immediately or return to the Emergency Department at any time for re-evaluation. Forms: Elevated Blood Pressure Referrals: THERESE NEUMANN DO [Primary Care Provider] - Follow up as needed MOE BOWMAN MD [ACTIVE STAFF] - Follow up as needed
--- NOTE | 2018-07-02 20:35 | RADIOLOGY REPORT (SQ) ---
EXAM DESCRIPTION: WRIST RIGHT 3 VIEWS COMPLETED DATE/TIME: 07/02/2018 8:03 pm REASON FOR STUDY: Fell off mattress injured wrist elbow and shoulder COMPARISON: None. NUMBER OF VIEWS: Three views. TECHNIQUE: AP, lateral, and oblique radiographic images acquired of the right wrist. LIMITATIONS: None. FINDINGS: MINERALIZATION: Normal. BONES: No acute fracture or dislocation. No worrisome bone lesions. Normal alignment. SOFT TISSUES: No soft tissue swelling. No foreign body. OTHER: No other significant finding. IMPRESSION: NEGATIVE STUDY OF THE RIGHT WRIST. NO RADIOGRAPHIC EVIDENCE OF ACUTE INJURY. TECHNICAL DOCUMENTATION: JOB ID: [id number] [employer]- All Rights Reserved Reading location - IP/workstation name: [email or web address]
--- NOTE | 2018-07-02 20:35 | RADIOLOGY REPORT (SQ) ---
EXAM DESCRIPTION: ELBOW RIGHT OVER 2 VIEWS COMPLETED DATE/TIME: 07/02/2018 8:03 pm REASON FOR STUDY: Fell off mattress injured wrist elbow and shoulder COMPARISON: None. NUMBER OF VIEWS: Four views. TECHNIQUE: AP, lateral, and both oblique radiographic images acquired of the right elbow. LIMITATIONS: None. FINDINGS: MINERALIZATION: Normal. BONES: No acute fracture or dislocation. No worrisome bone lesions. JOINT: No effusion. SOFT TISSUES: No soft tissue swelling. No foreign body. OTHER: No other significant finding. IMPRESSION: NEGATIVE STUDY OF THE RIGHT ELBOW. NO RADIOGRAPHIC EVIDENCE OF ACUTE INJURY. TECHNICAL DOCUMENTATION: JOB ID: [id number] [employer]- All Rights Reserved Reading location - IP/workstation name: [email or web address]
--- NOTE | 2018-07-02 20:35 | RADIOLOGY REPORT (SQ) ---
EXAM DESCRIPTION: SHOULDER RIGHT 2 OR MORE VIEWS COMPLETED DATE/TIME: 07/02/2018 8:14 pm REASON FOR STUDY: Fell off mattress injured wrist elbow and shoulder COMPARISON: None. NUMBER OF VIEWS: Three views. TECHNIQUE: Internal rotation, external rotation, and Y view images acquired of the right shoulder. LIMITATIONS: None. FINDINGS: MINERALIZATION: Normal. BONES: No acute fracture or dislocation. No worrisome bone lesions. JOINTS: No dislocation. VISUALIZED LUNGS AND RIBS: No pneumothorax. No rib fracture. SOFT TISSUES: No radiopaque foreign body. OTHER: No other significant finding. IMPRESSION: NEGATIVE STUDY OF THE RIGHT SHOULDER. NO RADIOGRAPHIC EVIDENCE OF ACUTE INJURY. TECHNICAL DOCUMENTATION: JOB ID: [id number] [employer]- All Rights Reserved Reading location - IP/workstation name: [email or web address]
[2018-07-02 21:09] VITALS: BP 188/99
== END 2018-07-02 21:09 | disposition home or self-care (01) ==
LOC: ER 19:12
DX: M25.511 Pain in right shoulder (principal); M25.521 Pain in right elbow; M25.531 Pain in right wrist; W06.XXXA Fall from bed, initial encounter; Y93.89 Activity, other specified; Y92.003 Bedroom of unspecified non-institutional (private) residence as the place of occurrence of the external cause; E11.51 Type 2 diabetes mellitus with diabetic peripheral angiopathy without gangrene; I10 Essential (primary) hypertension; I25.10 Atherosclerotic heart disease of native coronary artery without angina pectoris; J44.9 Chronic obstructive pulmonary disease, unspecified; Z89.511 Acquired absence of right leg below knee; Z88.8 Allergy status to other drugs, medicaments and biological substances; Z95.1 Presence of aortocoronary bypass graft
CPT/HCPCS: 99283; 73080; 73030; 73110; A9270

== ENCOUNTER 2018-10-16 17:34 | Observation (INO) | payer MEDICARE ==
--- NOTE | 2018-10-16 18:40 | ER Document Report ---
ED Medical Screen (RME) - General Chief Complaint: Chest Pain Stated Complaint: CHEST PAIN, SOB, VOMITING, DIARRHEA Time Seen by Provider: 10/16/18 18:40 Primary Care Provider: THERESE NEUMANN DO [Primary Care Provider] - Follow up as needed Notes: Patient is a 48-year-old female with extensive cardiac history that presents to the emergency department for chief complaint of chest pain and shortness of breath. Scribes as a heaviness in her left chest that radiates to her left arm. ROS: Other than noted above, the 12 point review of systems was reviewed with the patient and were negative, all pertinent findings are included in the HPI. PHYSICAL EXAMINATION: Vital signs reviewed. GENERAL: Chronically ill-appearing female, appears uncomfortable HEAD: Atraumatic, normocephalic. EYES: Pupils equal round extraocular movements intact, conjunctiva are normal. ENT: Nares patent NECK: Normal range of motion CV: Heart regular rate and rhythm LUNGS: No respiratory distress Musculoskeletal: Right below the knee amputation NEUROLOGICAL: Normal speech PSYCH: Normal mood, normal affect. MDM: Patient seen and examined for rapid initial assessment. Vital signs reviewed. A comprehensive ED assessment and evaluation of the patient, analysis of test results and completion of the medical decision making process will be conducted by additional ED providers. *Note is created using voice recognition software and may contain spelling, syntax or grammatical errors. TRAVEL OUTSIDE OF THE [place] IN LAST 30 DAYS: No - Related Data Allergies/Adverse Reactions: amlodipine Allergy (Verified 10/16/18 17:37) isosorbide [From Imdur] Allergy (Verified 10/16/18 17:37) zolpidem [From Ambien] Allergy (Verified 10/16/18 17:37) Past Medical History - Past Medical History Cardiac Medical History: Reports: Hx Atrial Fibrillation, Hx Congestive Heart Failure, Hx Coronary Artery Disease, Hx DVT, Hx Heart Attack, Hx Peripheral Vascular Disease Pulmonary Medical History: Reports: Hx COPD Endocrine Medical History: Reports: Hx Diabetes Mellitus Type 2 Renal/ Medical History: Reports: Hx Kidney Stones, Hx Renal Insufficiency. Denies: Hx Peritoneal Dialysis GI Medical History: Reports: Hx Gastroesophageal Reflux Disease, Hx Hiatal Hernia, Hx Irritable Bowel Musculoskeltal Medical History: Reports Hx Musculoskeletal Deformity, Reports Hx Musculoskeletal Trauma Skin Medical History: Reports Hx Cellulitis Psychiatric Medical History: Reports: Hx Anxiety, Hx Depression Past Surgical History: Reports: Hx Abdominal Surgery, Hx Cardiac Surgery - CABG, Hx Cholecystectomy, Hx Coronary Artery Bypass Graft - x3, Hx Tubal Ligation, Other - Ventral hernia repair - Immunizations History of Influenza Vaccine for 04/2017 - 09/2017 Season: No Physical Exam - Vital signs Vitals: Temp Pulse Resp BP Pulse Ox 98.6 F 91 20 156/116 H 99 10/16/18 17:40 10/16/18 17:40 10/16/18 17:40 10/16/18 17:40 10/16/18 17:40 Course - Vital Signs Vital signs: Temp Pulse Resp BP Pulse Ox 98.6 F 91 20 156/116 H 99 10/16/18 17:40 10/16/18 17:40 10/16/18 17:40 10/16/18 17:40 10/16/18 17:40 Doctor's Discharge - Discharge Referrals: THERESE NEUMANN, [Primary Care Provider] - Follow up as needed
[2018-10-16] MEDS ORDERED: NITROGLYCERIN 0.4 MG/TAB 25 TAB/BOTTLE SL PRN ×2 (18:44→23:32)
--- NOTE | 2018-10-16 19:13 | RADIOLOGY REPORT (SQ) ---
EXAM DESCRIPTION: CHEST SINGLE VIEW COMPLETED DATE/TIME: 10/16/2018 7:01 pm REASON FOR STUDY: chest pain COMPARISON: 07/20/2016 TECHNIQUE: Single frontal radiographic view of the chest acquired. NUMBER OF VIEWS: One view. LIMITATIONS: None. FINDINGS: LUNGS AND PLEURA: No pneumothorax. No consolidation or pleural effusion. MEDIASTINUM AND HILAR STRUCTURES: Stable. HEART AND VASCULAR STRUCTURES: Stable. BONES: No acute findings. HARDWARE: CABG. OTHER: No other significant finding. IMPRESSION: NO ACUTE FINDINGS. TECHNICAL DOCUMENTATION: JOB ID: [id number] 2010 [employer]- All Rights Reserved Reading location - IP/workstation name: [email or web address]
[2018-10-16 19:49] LABS: ABSOLUTE BASOPHILS # (AUTO) 0.1 10^3/uL (0.0-0.2); ABSOLUTE EOSINOPHILS # (AUTO) 0.1 10^3/uL (0.0-0.6); ABSOLUTE LYMPHOCYTES (AUTO) 2.3 10^3/uL (0.5-4.7); ABSOLUTE MONOCYTES (AUTO) 0.4 10^3/uL (0.1-1.4); ABSOLUTE NEUT (AUTO) 5.2 10^3/uL (1.7-8.2); BASOPHILS % (AUTO) 0.9 % (0-2); EOSINOPHILS % (AUTO) 1.3 % (0-6); HEMATOCRIT 36.9 % (36.0-47.0); HEMOGLOBIN 12.7 g/dL (12.0-15.5); LYMPHOCYTES % (AUTO) 28.5 % (13-45); MEAN CORPUSCULAR HEMOGLOBIN 28.4 pg (27.0-33.4); MEAN CORPUSCULAR HGB CONC 34.5 g/dL (32.0-36.0); MEAN CORPUSCULAR VOLUME 82 fl (80-97); MONOCYTES % (AUTO) 4.4 % (3-13); PLATELET COUNT 291 10^3/uL (150-450); RED BLOOD COUNT 4.48 10^6/uL (3.72-5.28); RED CELL DISTRIBUTION WIDTH 15.1 % (11.5-14.0); SEGMENTED NEUTROPHILS % (AUTO) 64.9 % (42-78); TOTAL CELLS COUNTED % (AUTO) 100 %; WHITE BLOOD COUNT 7.9 10^3/uL (4.0-10.5)
[2018-10-16] MEDS ORDERED: NORMAL SALINE 500 ML IV ONE (20:19)
[2018-10-16] MEDS ORDERED: ONDANSETRON HCL INJ/PF 4 MG/2 ML SDV IV ONE ×2 (20:19→21:47)
[2018-10-16] MEDS ORDERED: MORPHINE SULFATE 10 MG/ML INJ IV ONE (20:27)
[2018-10-16 20:31] LABS: ALANINE AMINOTRANSFERASE 14 U/L (9-52); ALKALINE PHOSPHATASE 112 U/L (38-126); ANION GAP 11 (5-19); ASPARTATE AMINO TRANSFERASE 28 U/L (14-36); BILIRUBIN,DIRECT 0.5 mg/dL (0.0-0.4); BILIRUBIN,TOTAL 0.6 mg/dL (0.2-1.3); BLOOD UREA NITROGEN 19 mg/dL (7-20); CALCIUM 10.1 mg/dL (8.4-10.2); CARBON DIOXIDE 28 mmol/L (22-30); CHLORIDE 97 mmol/L (98-107); GLUCOSE 274 mg/dL (75-110); POTASSIUM 5.6 mmol/L (3.6-5.0); SODIUM 136.4 mmol/L (137-145)
[2018-10-16 20:43] LABS: NT PRO BNP 1540 pg/mL (<125)
[2018-10-16 20:44] LABS: TROPONIN I < 0.012 ng/mL
--- NOTE | 2018-10-16 21:24 | EKG REPORT ---
SEVERITY:- ABNORMAL ECG - SINUS RHYTHM BORDERLINE LEFT AXIS DEVIATION REPOL ABNRM SUGGESTS ISCHEMIA, ANT-LAT LEADS : Confirmed by: Latha Thakkar MD 16-Oct-2018 21:23:09
[2018-10-16] MEDS ORDERED: SODIUM POLYSTYRENE SULFONATE 15 GM/60 ML PO ONE (21:46)
[2018-10-16] MEDS ORDERED: CARVEDILOL 3.125 MG TABLET PO ONE (22:23)
[2018-10-16] MEDS ORDERED: ASPIRIN 81 MG TABLET, CHEWABLE PO ONE (22:24)
[2018-10-16] MEDS ORDERED: NITROGLYCERIN 2% OINTMENT 1 GM PACKET TP ONE (22:25)
--- NOTE | 2018-10-16 22:26 | ER Document Report ---
ED General - General TRAVEL OUTSIDE OF THE [place] IN LAST 30 DAYS: No <HINA VILLEGAS - Last Filed: 10/16/18 23:23> <SHARON PIERCE - Last Filed: 10/16/18 23:32> - General Chief Complaint: Chest Pain Stated Complaint: CHEST PAIN, SOB, VOMITING, DIARRHEA Time Seen by Provider: 10/16/18 18:40 Primary Care Provider: THERESE NEUMANN DO [Primary Care Provider] - Follow up as needed - [facility] Notes: Patient presents to the emergency department for evaluation of chest pain. She has some difficulty describing it for me. She states it feels like a left-sided tightness with any sort of movement or exertion. She states intermittently she has had some sharp and stabbing pains, as well as some electrical shock like pains. She describes some associated shortness of breath, nausea, emesis. She does note she has had some diarrhea as well. Her pain started while she was cleaning at her house. It did seem to improve slightly with rest but worsened again when she went back to cleaning. She does have a known history of coronary artery disease. Last stress test was June 2017. She states she is been taking her medications as prescribed. She notes that a little over a month ago she did start lisinopril. She does note that she did not take her nighttime dose of Coreg this evening. Of note the patient also states she has been sustaining significant scratches from her cats. They are kittens that will be adopted out tomorrow. (HINA VILLEGAS) - Related Data Allergies/Adverse Reactions: amlodipine Allergy (Verified 10/16/18 18:46) isosorbide [From Imdur] Allergy (Verified 10/16/18 18:46) zolpidem [From Ambien] Allergy (Verified 10/16/18 18:46) Past Medical History - General Information source: Patient - Social History Smoking Status: Former Smoker Chew tobacco use (# tins/day): No Frequency of alcohol use: None Drug Abuse: None Family History: CVA, DM, Hypertension Patient has suicidal ideation: No Patient has homicidal ideation: No - Past Medical History Cardiac Medical History: Reports: Hx Atrial Fibrillation, Hx Congestive Heart Failure, Hx Coronary Artery Disease, Hx DVT, Hx Heart Attack, Hx Peripheral Vascular Disease Pulmonary Medical History: Reports: Hx COPD Endocrine Medical History: Reports: Hx Diabetes Mellitus Type 2 Renal/ Medical History: Reports: Hx Kidney Stones, Hx Renal Insufficiency. Denies: Hx Peritoneal Dialysis GI Medical History: Reports: Hx Gastroesophageal Reflux Disease, Hx Hiatal Hernia, Hx Irritable Bowel Musculoskeletal Medical History: Reports Hx Musculoskeletal Deformity, Reports Hx Musculoskeletal Trauma Skin Medical History: Reports Hx Cellulitis Psychiatric Medical History: Reports: Hx Anxiety, Hx Depression Past Surgical History: Reports: Hx Abdominal Surgery, Hx Cardiac Surgery - CABG, Hx Section - x2, Hx Cholecystectomy, Hx Coronary Artery Bypass Graft - x3, Hx Orthopedic Surgery - left knee/ r BKA, Hx Tubal Ligation, Other - Ventral hernia repair <HINA VILLEGAS - Last Filed: 10/16/18 23:23> Review of Systems - Review of Systems Constitutional: No symptoms reported EENT: No symptoms reported Cardiovascular: See HPI Respiratory: See HPI Gastrointestinal: See HPI Genitourinary: No symptoms reported Female Genitourinary: No symptoms reported Musculoskeletal: No symptoms reported Skin: No symptoms reported Neurological/Psychological: No symptoms reported <HINA VILLEGAS - Last Filed: 10/16/18 23:23> Physical Exam <HINA VILLEGAS - Last Filed: 10/16/18 23:23> - Vital signs Vitals: Temp Pulse Resp BP Pulse Ox 98.6 F 91 20 156/116 H 99 10/16/18 17:40 10/16/18 17:40 10/16/18 17:40 10/16/18 17:40 10/16/18 17:40 - Notes Notes: Vital signs reviewed, please refer to chart. Patient is normocephalic, atraumatic. Pupils equal round, reactive to light. Neck is supple without meningismus. Heart is regular rate and rhythm. Lungs are clear to auscultation bilaterally. Abdomen is soft, nontender, normoactive bowel sounds throughout. Patient with a right BKA, stump reveals no signs of wound dehiscence or cellulitic changes.. Peripheral pulses are equal. Skin is warm and dry. Patient has multiple linear, superficial lacerations, consistent with cat scratches. Patient is awake, alert, neurological exam is nonfocal. (HINA VILLEGAS) Course - Laboratory Result Diagrams: 10/16/18 19:34 10/16/18 19:34 - Diagnostic Test Radiology reviewed: Reports reviewed - No acute cardiopulmonary disease <HINA VILLEGAS - Last Filed: 10/16/18 23:23> - Laboratory Result Diagrams: 10/16/18 19:34 10/16/18 19:34 <SHARON PIERCE - Last Filed: 10/16/18 23:32> - Re-evaluation Re-evalutation: 10/16/18 22:28 Patient presents emergency department for evaluation. She is placed on a manager cardiac, blood work and chest x-ray ordered. EKG performed. Laboratory investigations revealed a new hyperkalemia. She is not on potassium supplementation. My suspicion is that it may be secondary to the lisinopril. Patient was given her dose of Coreg here. She was given nitroglycerin and stated that it gave her headache, only minimally helped her pain. She was given morphine. She states now her pain is significantly improved. Patient's blood pressure continues to be elevated. Given her extensive cardiac risk factors and history, her chest pain that she cannot adequately describe, her new hyperkalemia, I will contact medicine for possible admission. 10/16/18 22:[address] Argueta. He asked that an abdominal series be performed. Patient remains chest pain-free, blood pressure remains elevated but still awaiting oral medications. Awaiting approval for admission. 10/16/18 23:22 Abdominal series performed. It is interpreted by myself without the aid of radiologist as showing as pattern, no signs of obstruction, no free air. At this point I do not see that this will affect disposition on this patient. This patient is still likely require admission given her elevated blood pressure, elevated potassium, chest pain, multiple risk factors. She remained stable and chest pain-free at this time. 10/16/18 23:23 (HINA VILLEGAS) - Vital Signs Vital signs: Temp Pulse Resp BP Pulse Ox 98.6 F 91 11 L 186/93 H 97 10/16/18 17:40 10/16/18 17:40 10/16/18 22:06 10/16/18 22:06 10/16/18 22:06 - Laboratory Laboratory results interpreted by me: 10/16/18 10/16/18 10/16/18 19:34 19:34 19:34 RDW 15.1 H Sodium 136.4 L Potassium 5.6 H Chloride 97 L Est GFR (Non-Af Amer) 56 L Glucose 274 H Direct Bilirubin 0.5 H NT-Pro-B Natriuret Pep 1540 H - EKG Interpretation by Me Additional EKG results interpreted by me: 10/16/18 22:29 Sinus mechanism with a rate of 95 bpm. Left axis deviation. ST and T wave changes concerning for ischemia anterolaterally, with changes in V4, V5, V6, 1, aVL. These are unchanged from prior study of June 2017. (HINA VILLEGAS) Discharge - Discharge Admitting Provider: Otf Argueta <HINA VILLEGAS - Last Filed: 10/16/18 23:23> - Discharge Unit Admitted: Telemetry <SHARON PIERCE - Last Filed: 10/16/18 23:32> - Discharge Clinical Impression: Chest pain, Hyperkalemia, Nausea and vomiting Condition: Stable Disposition: ADMITTED OBSERVATION Referrals: THERESE NEUMANN DO [Primary Care Provider] - Follow up as needed
[2018-10-16] MEDS ORDERED: SODIUM POLYSTYRENE SULFONATE 15 GM/60 ML ONE ×2 (22:47→23:23)
[2018-10-16] MEDS ORDERED: ACETAMINOPHEN 325 MG TABLET PO PRN (23:33)
--- NOTE | 2018-10-16 23:53 | RADIOLOGY REPORT (SQ) ---
CLINICAL HISTORY: diarrhea COMPARISON: None. TECHNIQUE: XR ABDOMEN 2 VIEWS SUPINE ERECT 10/16/2018 10:36 PM CDT FINDINGS: There is small amount of stool throughout the colon. There are no abnormal radiopaque foreign bodies or abnormal calcifications. Osseous structures are grossly unremarkable. IMPRESSION: No bowel obstruction.
[2018-10-16] MEDS ORDERED: LACTULOSE SYRUP 20 GM/30 ML UDCUP PO ONE (23:59)
[2018-10-17] MEDS ORDERED: PREGABALIN 75 MG CAPSULE PO SCH
[2018-10-17] MEDS ORDERED: FENOFIBRATE NANOCRYSTALLIZED 145 MG TABLET PO ONE (00:30)
[2018-10-17] MEDS ORDERED: ATORVASTATIN CALCIUM 80 MG TABLET PO ONE (00:30)
[2018-10-17] MEDS ORDERED: CARVEDILOL 3.125 MG TABLET PO ONE (00:30)
[2018-10-17] MEDS ORDERED: MIRTAZAPINE 15 MG TABLET PO ONE (00:30)
[2018-10-17 00:54] LABS: ANION GAP 13 (5-19); BLOOD UREA NITROGEN 15 mg/dL (7-20); CALCIUM 9.7 mg/dL (8.4-10.2); CARBON DIOXIDE 26 mmol/L (22-30); CHLORIDE 98 mmol/L (98-107); GLUCOSE 244 mg/dL (75-110); POTASSIUM 4.7 mmol/L (3.6-5.0); SODIUM 137.2 mmol/L (137-145)
[2018-10-17 02:17] VITALS: BP 152/84
[2018-10-17] MEDS ORDERED: METOCLOPRAMIDE HCL INJ/PF 10 MG/2 ML SDV IV ONE (05:30)
[2018-10-17] MEDS ORDERED: PANTOPRAZOLE SODIUM 40 MG TABLET.DR PO SCH (06:00)
--- NOTE | 2018-10-17 06:04 | PDOC H&P ---
History of Present Illness Admission Date/PCP: 10/16/18 23:37 THERESE NEUMANN DO Patient complains of: Chest pain and shortness of breath History of Present Illness: HELDER SERNA is a 48 year old female with a past medical history of peripheral vascular disease, right BKA, diabetes, dyslipidemia, gastroparesis, obstructive sleep apnea, coronary artery disease status post coronary artery bypass graft. Patient presents with dull, 4 out of 5 nonradiating retrosternal chest pain after cleaning her house associated with shortness of breath palpitations nausea without vomiting. Symptoms were reduced with rest and again by nitroglycerin, exacerbated by activity. In the emergency department she is found to have uncontrolled systolic blood pressure in the 200s. She receives nitroglycerin and with an otherwise unremarkable workup is referred to the hospitalist for admission. Patient admits to noncompliance with several medications secondary to financial barriers. She denies recent stress test. Past Medical History Cardiac Medical History: Reports: Atrial Fibrillation, Congestive Heart Failure, Coronary Artery Disease, DVT, Myocardial Infarction, Hypertension, Peripheral Vascular Disease Pulmonary Medical History: Reports: Bronchitis, Chronic Obstructive Pulmonary Disease (COPD), Pneumonia Endocrine Medical History: Reports: Diabetes Mellitus Type 2 GI Medical History: Reports: Gastroesophageal Reflux Disease, Hiatal Hernia Musculoskeltal Medical History: Reports: Arthritis Psychiatric Medical History: Reports: Depression Hematology: Reports: Anemia Past Surgical History Past Surgical History: Reports: Amputation, Section - x2, Cholecystectomy, Coronary Artery Bypass Graft - x3, Orthopedic Surgery - left knee/ r BKA, Tubal Ligation, Other - Ventral hernia repair Social History Information Source: Patient, [facility] Records Lives with: Family Smoking Status: Former Smoker Frequency of Alcohol Use: Rare Hx Recreational Drug Use: No Drugs: None Hx Prescription Drug Abuse: No - Advance Directive Resuscitation Status: Full Code Family History Family History: CVA, DM, Hypertension Parental Family History Reviewed: Yes Children Family History Reviewed: Yes Sibling(s) Family History Reviewed.: Yes Medication/Allergy Home Medications: Carvedilol [Coreg 3.125 mg Tablet] 3.125 mg PO Q12 06/26/17 Fenofibrate Nanocrystallized [Fenofibrate] 145 mg PO QHS 06/26/17 Liraglutide [Victoza 2-Manoj] 0.6 mg SQ QHS 06/26/17 Metoclopramide HCl [Reglan 10 mg Tablet] 10 mg PO MEALSHS 06/26/17 Mirtazapine [Remeron] 45 mg PO QHS 06/26/17 Nitroglycerin [Nitrostat 0.4 mg (1/150 Gr) Tabs 25/Bottle] 0.4 mg SL Q5MP PRN 06/26/17 Oxycodone HCl [Oxycodone HCl 10 MG Tablet] 10 mg PO Q8 06/26/17 Pantoprazole Sodium [Protonix] 40 mg PO DAILY 06/26/17 Pregabalin [Lyrica] 75 mg PO Q6 06/26/17 Tizanidine HCl [Zanaflex] 4 mg PO Q8 06/26/17 Aspirin [Ecotrin 81 mg EC Tablet] 81 mg PO DAILY tabec 06/29/17 Atorvastatin Calcium [Lipitor 80 mg Tablet] 80 mg PO QHS #30 tablet 06/29/17 Guaifenesin [Mucinex Sr 600 mg Tablet.sa] 600 mg PO Q12 tablet.sa 06/29/17 Insulin Glargine,Hum.rec.anlog [Lantus] 35 units SQ BID #0 06/29/17 Insulin Lispro [Humalog Insulin (Lispro) 100 unit/mL] 12 units SQ MEALS #0 06/29/17 Lisinopril [Prinivil 5 mg Tablet] 2.5 mg PO DAILY #30 tablet 06/29/17 Rivaroxaban [Xarelto] 20 mg PO DAILY #0 06/29/17 Cephalexin Monohydrate [Keflex 500 mg Capsule] 500 mg PO Q6H 7 Days capsule 11/26/17 Glipizide 10 mg PO DAILY #30 tablet 11/26/17 Metformin HCl [Glucophage 500 mg Tablet] 500 mg PO BID #60 tablet 11/26/17 Sulfamethoxazole/Trimethoprim [Bactrim Ds Tablet] 1 tab PO BID #14 tablet 11/26/17 Cephalexin Monohydrate [Keflex 500 mg Capsule] 500 mg PO QID #28 capsule 06/18/18 Oxycodone HCl/Acetaminophen [Percocet 5-325 mg Tablet] 1 - 2 tab PO ASDIR PRN #15 tablet 06/18/18 Allergies/Adverse Reactions: amlodipine Allergy (Verified 10/16/18 18:46) isosorbide [From Imdur] Allergy (Verified 10/16/18 18:46) zolpidem [From Ambien] Allergy (Verified 10/16/18 18:46) Review of Systems Constitutional: ABSENT: chills, fever(s), headache(s), weight gain, weight loss Eyes: ABSENT: visual disturbances Ears: ABSENT: hearing changes Cardiovascular: ABSENT: chest pain, dyspnea on exertion, edema, orthropnea, palpitations Respiratory: ABSENT: cough, hemoptysis Gastrointestinal: PRESENT: abdominal pain, bloating, nausea. ABSENT: constipation, diarrhea, hematemesis, hematochezia, vomiting Genitourinary: ABSENT: dysuria, hematuria Musculoskeletal: ABSENT: joint swelling Integumentary: ABSENT: rash, wounds Neurological: ABSENT: abnormal gait, abnormal speech, confusion, dizziness, focal weakness, syncope Psychiatric: ABSENT: anxiety, depression, homidical ideation, suicidal ideation Endocrine: ABSENT: cold intolerance, heat intolerance, polydipsia, polyuria Hematologic/Lymphatic: ABSENT: easy bleeding, easy bruising Physical Exam Vital Signs: Temp Pulse Resp BP Pulse Ox 99.3 F 104 H 18 152/84 H 99 10/17/18 02:04 10/17/18 02:04 10/17/18 02:04 10/17/18 02:04 10/17/18 02:04 Intake & Output 10/15/18 10/16/18 10/17/18 11:59 11:59 11:59 Weight 72.8 kg General appearance: PRESENT: no acute distress, well-developed, well-nourished Head exam: PRESENT: atraumatic, normocephalic Eye exam: PRESENT: conjunctiva pink, EOMI, PERRLA. ABSENT: scleral icterus Ear exam: PRESENT: normal external ear exam Mouth exam: PRESENT: moist, tongue midline Neck exam: ABSENT: carotid bruit, JVD, lymphadenopathy, thyromegaly Respiratory exam: PRESENT: clear to auscultation amaya, symmetrical. ABSENT: rales, rhonchi, stridor, wheezes Cardiovascular exam: PRESENT: gallop, RRR, +S1, +S2, tachycardia. ABSENT: diastolic murmur, rubs, systolic murmur Pulses: PRESENT: normal dorsalis pedis pul Vascular exam: PRESENT: normal capillary refill GI/Abdominal exam: PRESENT: normal bowel sounds, soft. ABSENT: distended, guarding, mass, organolmegaly, rebound, tenderness Rectal exam: PRESENT: deferred Extremities exam: PRESENT: full ROM. ABSENT: calf tenderness, clubbing, pedal edema Neurological exam: PRESENT: alert, awake, oriented to person, oriented to place, oriented to time, oriented to situation, CN II-XII grossly intact. ABSENT: motor sensory deficit Psychiatric exam: PRESENT: appropriate affect, normal mood. ABSENT: homicidal ideation, suicidal ideation Skin exam: PRESENT: dry, intact, warm. ABSENT: cyanosis, rash Results Laboratory Results: 10/16/18 19:34 10/17/18 00:16 10/16/18 10/16/18 10/17/18 19:34 19:34 00:16 WBC 7.9 RBC 4.48 Hgb 12.7 Hct 36.9 MCV 82 MCH 28.4 MCHC 34.5 RDW 15.1 H Plt Count 291 Seg Neutrophils % 64.9 Lymphocytes % 28.5 Monocytes % 4.4 Eosinophils % 1.3 Basophils % 0.9 Absolute Neutrophils 5.2 Absolute Lymphocytes 2.3 Absolute Monocytes 0.4 Absolute Eosinophils 0.1 Absolute Basophils 0.1 Sodium 136.4 L 137.2 Potassium 5.6 H 4.7 Chloride 97 L 98 Carbon Dioxide 28 26 Anion Gap 11 13 BUN 19 15 Creatinine 1.04 0.76 Est GFR ( Amer) > 60 > 60 Est GFR (Non-Af Amer) 56 L > 60 Glucose 274 H 244 H Calcium 10.1 9.7 Total Bilirubin 0.6 AST 28 ALT 14 Alkaline Phosphatase 112 Total Protein 8.0 Albumin 4.0 10/16/18 10/16/18 10/16/18 19:34 21:09 21:09 CK-MB (CK-2) 1.44 Troponin I < 0.012 < 0.012 NT-Pro-B Natriuret Pep 1540 H 10/17/18 02:58 CK-MB (CK-2) Troponin I < 0.012 NT-Pro-B Natriuret Pep Impressions: Chest X-Ray 10/16/18 18:40 IMPRESSION: NO ACUTE FINDINGS. Abdomen X-Ray 10/16/18 22:36 IMPRESSION: No bowel obstruction. Assessment and Plan - Diagnosis (1) Hypertensive urgency Is this a current diagnosis for this admission?: Yes Plan: Secondary to medication noncompliance, nitroglycerin, CARMEN inhibitor, hydralazine as needed (2) Chest pain Is this a current diagnosis for this admission?: Yes Plan: Secondary to coronary artery disease versus gastroparesis, chest pain care set deployed, Cardiolite stress test ordered. (3) Gastroparesis Is this a current diagnosis for this admission?: Yes Plan: Reglan as needed (4) Nausea and vomiting Is this a current diagnosis for this admission?: Yes Plan: Second and Yamileth 1 or 2. Symptomatic management (5) Medical non-compliance Is this a current diagnosis for this admission?: Yes Plan: Discharge planning consult - Time Time Spent with patient: 35 or more minutes - Inpatient Certification Medical Necessity: Need Close Monitoring Due to Risk of Patient Decompensation
[2018-10-17] MEDS ORDERED: DEXTROSE 50%-WATER SYRINGE 12.5 GM/25 ML DOSE IV PRN (07:30)
[2018-10-17] MEDS ORDERED: DEXTROSE 50%-WATER SYRINGE 25 GM/50 ML DOSE IV PRN (07:30)
[2018-10-17] MEDS ORDERED: DEXTROSE 40% GEL 15 GM TUBE PO PRN (07:30)
[2018-10-17] MEDS ORDERED: DEXTROSE 40% GEL 15 GM TUBE X 2 PO PRN (07:30)
[2018-10-17] MEDS ORDERED: GLUCAGON,HUMAN RECOMB 1 MG INJ IM PRN (07:30)
[2018-10-17] MEDS: INSULIN LISPRO 100 UNIT/ML 3 ML VIAL SUBCUT SCH ×3 (08:17→16:31)
[2018-10-17] MEDS ORDERED: RIVAROXABAN 10 MG TABLET PO SCH (10:00)
[2018-10-17] MEDS ORDERED: CARVEDILOL 3.125 MG TABLET PO SCH (10:00)
[2018-10-17] MEDS ORDERED: ASPIRIN 81 MG TABLET, ENT COATED PO SCH (10:00)
[2018-10-17] MEDS ORDERED: REGADENOSON INJ 0.4 MG/5 ML DISP.SYRIN IV ONE (11:26)
--- NOTE | 2018-10-17 16:51 | PDOC DISCHARGE SUMMARY ---
General - Admit/Disc Date/PCP Admission Date/Primary Care Provider: 10/16/18 23:37 THERESE NEUMANN, DO Discharge Date: 10/17/18 - Discharge Diagnosis (1) Chest pain Is this a current diagnosis for this admission?: No (2) Gastroparesis Is this a current diagnosis for this admission?: Yes (3) Hyperkalemia Is this a current diagnosis for this admission?: No (4) Hypertensive urgency Is this a current diagnosis for this admission?: Yes (5) COPD (chronic obstructive pulmonary disease) Is this a current diagnosis for this admission?: Yes (6) Medical non-compliance Is this a current diagnosis for this admission?: Yes (7) Uncontrolled diabetes mellitus Is this a current diagnosis for this admission?: Yes (8) Chronic diastolic heart failure Is this a current diagnosis for this admission?: Yes Summary: Patient with grade II/IV diastolic dysfunction, euvolemic at the present time Reinforced the need to take blood pressure medications - Additional Information Resuscitation Status: Full Code Discharge Diet: Cardiac, Diabetic Discharge Activity: Activity As Tolerated, Balance Activity w/Rest Home Medications: Carvedilol [Coreg 3.125 mg Tablet] 3.125 mg PO Q12 06/26/17 Metoclopramide HCl [Reglan 10 mg Tablet] 10 mg PO MEALSHS 06/26/17 Oxycodone HCl [Oxycodone HCl 10 MG Tablet] 10 mg PO Q8 06/26/17 Pantoprazole Sodium [Protonix] 40 mg PO DAILY 06/26/17 Tizanidine HCl [Zanaflex] 4 mg PO Q8 06/26/17 Aspirin [Ecotrin 81 mg EC Tablet] 81 mg PO DAILY tabec 06/29/17 Ascorbic Acid [Vitamin C 500 mg Tablet] 500 mg PO DAILYP PRN 10/17/18 Buspirone HCl [Buspar 5 mg Tablet] 1 tab PO BID 10/17/18 Citalopram Hydrobromide [Celexa 40 mg Tablet] 1 tab PO DAILY 10/17/18 Doxepin HCl [Silenor] 6 mg PO QHS 10/17/18 Gabapentin 600 mg PO QID 10/17/18 Lisinopril [Prinivil 5 mg Tablet] 5 mg PO DAILY 10/17/18 Metformin HCl [Glucophage 500 mg Tablet] 1,000 mg PO QPM 10/17/18 Metformin HCl [Glucophage 500 mg Tablet] 500 mg PO QAM 10/17/18 Multivitamin [Multiple Vitamins] 1 each PO DAILY 10/17/18 Mv,Margarito,Iron,Mn/Folic Acid/Chol [Hair, Skin and Nails Capsule] 1 each PO DAILY 10/17/18 History of Present Illness Patient complains of: Chest pain History of Present Illness: HELDER SERNA is a 48 year old female with a past medical history of peripheral vascular disease, right BKA, diabetes, dyslipidemia, gastroparesis, obstructive sleep apnea, coronary artery disease status post coronary artery bypass graft. Patient presents with dull, 4 out of 5 nonradiating retrosternal chest pain after cleaning her house associated with shortness of breath palpitations nausea without vomiting. Symptoms were reduced with rest and again by nitroglycerin, exacerbated by activity. In the emergency department she is found to have uncontrolled systolic blood pressure in the 200s. She receives nitroglycerin and with an otherwise unremarkable workup is referred to the hospitalist for admission. Patient admits to noncompliance with several medications secondary to financial barriers. She denies recent stress test. Patient was admitted to the hospitalist service on telemetry. Serial troponins were done x3 which were all negative. Her hyperkalemia was treated with D50 and insulin. This resolved. She underwent Lexiscan stress testing done today which was negative for ischemia. Chest pain was most likely GI in origin since she had a recent bout of nausea and vomiting. She admits to increasing reflux symptoms. We discussed the use of [id number] omeprazole daily for the next week to help with that. She will follow-up with her primary care provider Dr. Neumann in the next 1-2 weeks. She was also provided with number the [facility] she needs assistance obtaining her medications. He was discharged home with her family in good condition Physical Exam Vital Signs: Temp Pulse Resp BP Pulse Ox 99.3 F 114 H 18 152/84 H 99 10/17/18 16:16 10/17/18 16:16 10/17/18 16:16 10/17/18 16:16 10/17/18 16:16 Intake & Output 10/16/18 10/17/18 10/18/18 06:59 06:59 06:59 Weight 72.8 kg General appearance: PRESENT: no acute distress, well-developed, well-nourished Head exam: PRESENT: atraumatic, normocephalic Eye exam: PRESENT: conjunctiva pink, EOMI, PERRLA. ABSENT: scleral icterus Ear exam: PRESENT: normal external ear exam Neck exam: ABSENT: carotid bruit, JVD, lymphadenopathy, thyromegaly Respiratory exam: PRESENT: clear to auscultation amaya. ABSENT: rales, rhonchi, wheezes Cardiovascular exam: PRESENT: RRR. ABSENT: diastolic murmur, rubs, systolic murmur Pulses: PRESENT: normal carotid pulses, normal radial pulses Vascular exam: PRESENT: normal capillary refill GI/Abdominal exam: PRESENT: normal bowel sounds, soft. ABSENT: distended, guarding, mass, organolmegaly, rebound, tenderness Extremities exam: PRESENT: full ROM - right BKA, other Musculoskeletal exam: PRESENT: ambulatory Neurological exam: PRESENT: alert, awake, oriented to person, oriented to place, oriented to time, oriented to situation, CN II-XII grossly intact. ABSENT: motor sensory deficit Psychiatric exam: PRESENT: flat affect Skin exam: PRESENT: dry, intact, warm. ABSENT: cyanosis, rash Results Laboratory Results: 10/16/18 19:34 10/17/18 00:16 10/16/18 10/16/18 10/17/18 19:34 19:34 00:16 WBC 7.9 RBC 4.48 Hgb 12.7 Hct 36.9 MCV 82 MCH 28.4 MCHC 34.5 RDW 15.1 H Plt Count 291 Seg Neutrophils % 64.9 Lymphocytes % 28.5 Monocytes % 4.4 Eosinophils % 1.3 Basophils % 0.9 Absolute Neutrophils 5.2 Absolute Lymphocytes 2.3 Absolute Monocytes 0.4 Absolute Eosinophils 0.1 Absolute Basophils 0.1 Sodium 136.4 L 137.2 Potassium 5.6 H 4.7 Chloride 97 L 98 Carbon Dioxide 28 26 Anion Gap 11 13 BUN 19 15 Creatinine 1.04 0.76 Est GFR ( Amer) > 60 > 60 Est GFR (Non-Af Amer) 56 L > 60 Glucose 274 H 244 H Calcium 10.1 9.7 Total Bilirubin 0.6 AST 28 ALT 14 Alkaline Phosphatase 112 Total Protein 8.0 Albumin 4.0 10/16/18 10/16/18 10/16/18 19:34 21:09 21:09 CK-MB (CK-2) 1.44 Troponin I < 0.012 < 0.012 NT-Pro-B Natriuret Pep 1540 H 10/17/18 10/17/18 02:58 09:17 CK-MB (CK-2) Troponin I < 0.012 < 0.012 NT-Pro-B Natriuret Pep Impressions: Chest X-Ray 10/16/18 18:40 IMPRESSION: NO ACUTE FINDINGS. Abdomen X-Ray 10/16/18 22:36 IMPRESSION: No bowel obstruction. Qualifiers - * PATIENT BEING DISCHARGED WITH ANY OF THE FOLLOWING DIAGNOSIS: No Plan Discharge Plan: Home with family. Follow up with PCP in 1-2 weeks Time Spent: Less than 30 Minutes
[2018-10-17] MEDS ORDERED: FENOFIBRATE NANOCRYSTALLIZED 145 MG TABLET PO SCH (22:00)
[2018-10-17] MEDS ORDERED: MIRTAZAPINE 15 MG TABLET PO SCH (22:00)
[2018-10-17] MEDS ORDERED: ATORVASTATIN CALCIUM 80 MG TABLET PO SCH (22:00)
[2018-10-18] MEDS ORDERED: ASPIRIN 81 MG TABLET, ENT COATED PO SCH (10:00)
--- NOTE | 2018-10-19 17:38 | DRAGON STRESS TEST REPORT ---
Intravenous Lexiscan Cardiolite stress test using single photon emmision computerized tomography. Date of procedure: 10/17/2018. Ordering Provider: Dr. Thom Argueta. Patient's status: In Patient Indication: Chest pain. Coronary risk factors: Age, diabetes mellitus, hypertension, and dyslipidemia. Resting EKG: Stress EKG:[ No changes of ischemia. Reason for termination: Protocol. Conclusions: Normal EKG and hemodynamic response to IV Lexiscan. Nuclear data: At rest the patient was given 11.26 millicuries of technetium 99m sestamibi injected intravenously. As per protocol rest non gated SPECT images were obtained. Subsequently the patient was given intravenous Lexiscan at a dose of 0.4 mg in 5 mL intravenously, followed by flush with normal saline. Subsequently the stress dose of 33.0 millicuries of technetium 99m sestamibi was injected intravenously. As per protocol stress gated images were obtained. Nuclear interpretation: Review of images showed that this is a poor quality study, with inferior wall contamination due to liver and bowel contamination artifact. There is a perfusion defect in both the rest and stress images affecting the inferior wall, with normal motion contraction and thickening of all segments of the inferior wall. Hence this is soft tissue attenuation artifact. The rest of the segments of the myocardium had normal perfusion at rest, and normal perfusion post stress with IV Lexiscan. All segments of the myocardium had normal motion, contraction, and thickening by gated study. T. I D. ratio was normal at 1.13. There is no transient ischemic dilatation of the left ventricle. Computer read rest, and stress left ventricular ejection fraction were 49 %, and 48 %, respectively. Visually both the stress and rest ejection fractions were normal, and greater than 55%. Conclusion: 1. There is no scintigraphic evidence of Lexiscan induced myocardial ischemia. 2. There is no scintigraphic evidence of myocardial infarction/scar. 3. There is soft tissue attenuation artifact involving the inferior wall. Recommendations: Aggressive risk factor modification, and treating the underlying co- morbidities. MTDD
== END 2018-10-17 17:40 | disposition home or self-care (01) ==
LOC: ER 17:34 → EH 23:37 → 4N 10-17 02:00
PROVIDERS: ADMIT Internal Medicine; ATTEND Internal Medicine
DX: R07.9 Chest pain, unspecified (principal); E11.43 Type 2 diabetes mellitus with diabetic autonomic (poly)neuropathy; E11.65 Type 2 diabetes mellitus with hyperglycemia; K31.84 Gastroparesis; E87.5 Hyperkalemia; I16.0 Hypertensive urgency; J44.9 Chronic obstructive pulmonary disease, unspecified; I11.0 Hypertensive heart disease with heart failure; I50.32 Chronic diastolic (congestive) heart failure; I25.10 Atherosclerotic heart disease of native coronary artery without angina pectoris; Z91.14 Patient's other noncompliance with medication regimen; K21.9 Gastro-esophageal reflux disease without esophagitis; E11.51 Type 2 diabetes mellitus with diabetic peripheral angiopathy without gangrene; I48.91 Unspecified atrial fibrillation; Z95.1 Presence of aortocoronary bypass graft; Z89.511 Acquired absence of right leg below knee; T14.8XXA Other injury of unspecified body region, initial encounter; W55.03XA Scratched by cat, initial encounter; Z59.9 Problem related to housing and economic circumstances, unspecified; I25.2 Old myocardial infarction; Z90.49 Acquired absence of other specified parts of digestive tract; Z98.51 Tubal ligation status; Z87.891 Personal history of nicotine dependence; Z98.890 Other specified postprocedural states; Z82.49 Family history of ischemic heart disease and other diseases of the circulatory system
CPT/HCPCS: 93005; 96376; 99285; 96374; 96375; 36415 ×2; 82553; 82962; 85025; 80048; 80053; 84484 ×2; 83880; 93017; 74019; 71045; 78452; 93010; G0378 ×2; A9500; J2785; A9270 ×8; J2765; J2270; J3490 ×2; J2405; J1815

== ENCOUNTER 2018-12-09 20:31 | Emergency (ER) | payer MEDICAID, MEDICARE ==
[2018-12-09] MEDS ORDERED: METOCLOPRAMIDE HCL INJ/PF 10 MG/2 ML SDV IV ONE (21:09)
[2018-12-09] MEDS ORDERED: DIPHENHYDRAMINE HCL 50 MG/ML VIAL IV ONE (21:09)
--- NOTE | 2018-12-09 21:11 | ER Document Report ---
ED Medical Screen (RME) - General Chief Complaint: S/S of Possible Stroke Stated Complaint: HEADACHE Time Seen by Provider: 12/09/18 20:53 Primary Care Provider: THERESE NEUMANN DO [Primary Care Provider] - Follow up as needed Mode of Arrival: Wheelchair Information source: Patient TRAVEL OUTSIDE OF THE [place] IN LAST 30 DAYS: No - HPI Patient complains to provider of: HEADACHE Notes: 12/09/18 21:09 Patient here with complaints of headache and weakness. Patient has a history of migraine headaches and states that she developed a headache yesterday that was viselike in nature. It was not sudden onset, thunderclap in nature. Is progressively gotten worse. She has associated photophobia. No head injury. States that her thought she had some right-sided facial droop earlier today and she felt like she may be had some weakness to her right arm. This has since resolved. No fever. No head injury. Exam Patient with right BKA in wheelchair. Nonfocal neurological exam with no facial droop, no unilateral weakness. Lungs clear and equal throughout. Heart sounds normal. No neck stiffness or meningismus. Pupils are small but equal. Patient is on chronic narcotic medications. Plan CBC, CMP, troponin, EKG, chest x-ray, head CT, saline lock, Reglan, Benadryl. An initial examination was made on the patient as part of the triage process, and it was determined a more comprehensive evaluation was necessary. Initial labs were ordered and patient was transferred to another provider in the ED who assumed care and finished evaluation and plan. - Related Data Allergies/Adverse Reactions: amlodipine Allergy (Verified 10/16/18 18:46) isosorbide [From Imdur] Allergy (Verified 10/16/18 18:46) zolpidem [From Ambien] Allergy (Verified 10/16/18 18:46) Past Medical History - Social History Chew tobacco use (# tins/day): No Drug Abuse: None - Past Medical History Cardiac Medical History: Reports: Hx Atrial Fibrillation, Hx Congestive Heart Failure, Hx Coronary Artery Disease, Hx DVT, Hx Heart Attack, Hx Hypertension, Hx Peripheral Vascular Disease Pulmonary Medical History: Reports: Hx Bronchitis, Hx COPD, Hx Pneumonia Endocrine Medical History: Reports: Hx Diabetes Mellitus Type 2 Renal/ Medical History: Reports: Hx Kidney Stones, Hx Renal Insufficiency. Denies: Hx Peritoneal Dialysis GI Medical History: Reports: Hx Gastroesophageal Reflux Disease, Hx Hiatal Hernia, Hx Irritable Bowel Musculoskeltal Medical History: Reports Hx Arthritis, Reports Hx Musculoskeletal Deformity, Reports Hx Musculoskeletal Trauma Skin Medical History: Reports Hx Cellulitis Psychiatric Medical History: Reports: Hx Anxiety, Hx Depression Past Surgical History: Reports: Hx Abdominal Surgery, Hx Cardiac Surgery - CABG, Hx Section - x2, Hx Cholecystectomy, Hx Coronary Artery Bypass Graft - x3, Hx Orthopedic Surgery - left knee/ r BKA, Hx Tubal Ligation, Other - Ventral hernia repair - Immunizations Hx Diphtheria, Pertussis, Tetanus Vaccination: No History of Influenza Vaccine for 04/2017 - 09/2017 Season: No Physical Exam - Vital signs Vitals: Temp Resp BP Pulse Ox 97.6 F 20 92/60 L 96 12/09/18 20:49 12/09/18 20:49 12/09/18 20:49 12/09/18 20:49 Course - Vital Signs Vital signs: Temp Pulse Resp BP Pulse Ox 97.6 F 20 92/60 L 96 12/09/18 20:49 12/09/18 20:49 12/09/18 20:49 12/09/18 20:49 Doctor's Discharge - Discharge Referrals: THERESE NEUMANN DO [Primary Care Provider] - Follow up as needed
--- NOTE | 2018-12-09 21:35 | RADIOLOGY REPORT (SQ) ---
EXAM DESCRIPTION: XR CHEST 1 VIEW COMPLETED DATE/TME: 12/09/2018 21:08 CLINICAL HISTORY: 48 years, Female, HEADACHE, RIGHT SIDED WEAKNESS RESOLVED COMPARISON: Prior study from 10/16/2018 NUMBER OF VIEWS: One TECHNIQUE: Single frontal view of the chest was obtained portably LIMITATIONS: None. FINDINGS: Status post median sternotomy. Cardiac and mediastinal contours are stable. Lungs are clear. No pleural effusion or pneumothorax. IMPRESSION: No acute disease. copyright 2010 [employer]- All Rights Reserved
--- NOTE | 2018-12-09 21:40 | RADIOLOGY REPORT (SQ) ---
EXAM DESCRIPTION: CT HEAD WITHOUT IV CONTRAST COMPLETED DATE/TME: 12/09/2018 21:08 CLINICAL HISTORY: 48 years, Female, HEADACHE, RIGHT SIDED WEAKNESS RESOLVED COMPARISON: None. TECHNIQUE: Noncontrast CT of the head was performed. Coronal and sagittal reformations were created. Images stored on PACS. All CT scanners at this facility use dose modulation, iterative reconstruction, and/or weight based dosing when appropriate to reduce radiation dose to as low as reasonably achievable (ALARA). [facility]: Dose Right [facility]: CareDose [facility]: Dose Right [facility]: Teradose 4D [facility]: [employer] LIMITATIONS: None. FINDINGS: Evaluation of the brain parenchyma reveals mild periventricular and patchy subcortical white matter low attenuation. In addition, there is a more focal area of hypodensity located about the left thalamus on image 18 of series 2. No acute intracranial hemorrhage, mass effect, or extra-axial fluid is seen. The ventricles and sulcal spaces are normal in size and configuration. Globes and orbits show no acute abnormality. Mild rounded opacity is evident about the left maxillary antrum, either indicating a mucous retention cyst or inflammatory polyp. Remaining paranasal sinuses and mastoid air cells are clear. Calcifications are noted about the parasellar carotid arteries. No depressed skull fractures. IMPRESSION: No acute intracranial hemorrhage or mass effect. Mild chronic microvascular ischemic change with suspected remote lacunar infarct in the left thalamus. TECHNICAL DOCUMENTATION: Quality ID # [id number]: Final reports with documentation of one or more dose reduction techniques (e.g., Automated exposure control, adjustment of the mA and/or kV according to patient size, use of iterative reconstruction technique) copyright 2011 [employer]- All Rights Reserved
[2018-12-09 22:29] LABS: ABSOLUTE BASOPHILS # (AUTO) 0.1 10^3/uL (0.0-0.2); ABSOLUTE EOSINOPHILS # (AUTO) 0.1 10^3/uL (0.0-0.6); ABSOLUTE LYMPHOCYTES (AUTO) 3.8 10^3/uL (0.5-4.7); ABSOLUTE MONOCYTES (AUTO) 0.6 10^3/uL (0.1-1.4); ABSOLUTE NEUT (AUTO) 7.1 10^3/uL (1.7-8.2); BASOPHILS % (AUTO) 0.8 % (0-2); EOSINOPHILS % (AUTO) 1.2 % (0-6); HEMATOCRIT 34.9 % (36.0-47.0); HEMOGLOBIN 11.1 g/dL (12.0-15.5); LYMPHOCYTES % (AUTO) 32.5 % (13-45); MEAN CORPUSCULAR HEMOGLOBIN 26.2 pg (27.0-33.4); MEAN CORPUSCULAR HGB CONC 31.7 g/dL (32.0-36.0); MEAN CORPUSCULAR VOLUME 83 fl (80-97); MONOCYTES % (AUTO) 4.7 % (3-13); PLATELET COUNT 329 10^3/uL (150-450); RED BLOOD COUNT 4.22 10^6/uL (3.72-5.28); RED CELL DISTRIBUTION WIDTH 16.4 % (11.5-14.0); SEGMENTED NEUTROPHILS % (AUTO) 60.8 % (42-78); TOTAL CELLS COUNTED % (AUTO) 100 %; WHITE BLOOD COUNT 11.7 10^3/uL (4.0-10.5)
--- NOTE | 2018-12-09 22:32 | ER Document Report ---
ED General - General Chief Complaint: S/S of Possible Stroke Stated Complaint: HEADACHE Time Seen by Provider: 12/09/18 20:53 Primary Care Provider: THERESE NEUMANN DO [Primary Care Provider] - Follow up as needed Mode of Arrival: Wheelchair Notes: Patient is a 48-year-old female who presents with complaint of a headache that is been gradual in onset and gradually worsening since yesterday. Headache is viselike around the head. Lights make the headache much worse. She does have h istory of some migraines. She has very significant past medical history which includes previous stroke, blood clots in her legs, amputation of right lower leg, diabetes, hypertension, [place] and cardiac arrest. She is currently on Coumadin because a history of paroxysmal A. fib. She does take aspirin as well. Patient says with this headache she says her noticed this morning that she was having a bit of right-sided facial droop. She also noticed that when she goes to push herself off her chair off the bed her right arm is much weaker than her left. She says that weakness has slowly improved however she still is noticing some weakness in her right arm in comparison to the left. She denies recent fevers or infections. No chest pain. No other complaints at this time. TRAVEL OUTSIDE OF THE [place] IN LAST 30 DAYS: No - Related Data Allergies/Adverse Reactions: amlodipine Allergy (Verified 10/16/18 18:46) isosorbide [From Imdur] Allergy (Verified 10/16/18 18:46) zolpidem [From Ambien] Allergy (Verified 10/16/18 18:46) Past Medical History - General Information source: Patient - Social History Smoking Status: Never Smoker Chew tobacco use (# tins/day): No Frequency of alcohol use: None Drug Abuse: None Family History: CVA, DM, Hypertension Patient has suicidal ideation: No Patient has homicidal ideation: No - Past Medical History Cardiac Medical History: Reports: Hx Atrial Fibrillation, Hx Congestive Heart Failure, Hx Coronary Artery Disease, Hx DVT, Hx Heart Attack, Hx Hypertension, Hx Peripheral Vascular Disease Pulmonary Medical History: Reports: Hx Bronchitis, Hx COPD, Hx Pneumonia Endocrine Medical History: Reports: Hx Diabetes Mellitus Type 2 Renal/ Medical History: Reports: Hx Kidney Stones, Hx Renal Insufficiency. Denies: Hx Peritoneal Dialysis GI Medical History: Reports: Hx Gastroesophageal Reflux Disease, Hx Hiatal Hernia, Hx Irritable Bowel Musculoskeletal Medical History: Reports Hx Arthritis, Reports Hx Musculoskeletal Deformity, Reports Hx Musculoskeletal Trauma Skin Medical History: Reports Hx Cellulitis Psychiatric Medical History: Reports: Hx Anxiety, Hx Depression Past Surgical History: Reports: Hx Abdominal Surgery, Hx Cardiac Surgery - CABG, Hx Section - x2, Hx Cholecystectomy, Hx Coronary Artery Bypass Graft - x3, Hx Orthopedic Surgery - left knee/ r BKA, Hx Tubal Ligation, Other - Ventral hernia repair - Immunizations Hx Diphtheria, Pertussis, Tetanus Vaccination: No Hx Pneumococcal Vaccination: 07/23/09 Review of Systems - Review of Systems Notes: My Normal Review Basic REVIEW OF SYSTEMS: CONSTITUTIONAL : Denies fever, chills, or sweats. Denies recent illness. EENT: Denies eye, ear, throat, or mouth pain or symptoms. Denies nasal or sinus congestion. CARDIOVASCULAR: Denies chest pain. RESPIRATORY: Denies cough, cold, or chest congestion. Denies shortness of breath, difficulty breathing, or wheezing. GASTROINTESTINAL: Denies abdominal pain. Denies nausea, vomiting, or diarrhea. MUSCULOSKELETAL: Denies neck or back pain or joint pain or swelling. SKIN: Denies rash or skin lesions. HEMATOLOGIC : On Coumadin NEUROLOGICAL: Denies altered mental status or loss of consciousness. Has a headache. Some weakness to right upper extremity. Denies problems with gait or speech. Denies sensory or motor loss. ALL OTHER SYSTEMS REVIEWED AND NEGATIVE. Physical Exam - Vital signs Vitals: Temp Resp BP Pulse Ox 97.6 F 20 92/60 L 96 12/09/18 20:49 12/09/18 20:49 12/09/18 20:49 12/09/18 20:49 - Notes Notes: General Appearance: Well nourished, alert, cooperative, no acute distress, moderate obvious discomfort. Vitals: reviewed, See vital signs table. Head: no swelling or tenderness to the head Eyes: PERRL, EOMI, Conjuctiva clear Mouth: No decreasd moisture Lungs: No wheezing, No rales, No rhonci, No accessory muscle use, good air exchange bilaterally. Heart: Normal rate, Regular rythm, No murmur, no rub Abdomen: Normal BS, soft, No rigidity, No abdominal tenderness, No guarding, no rebound, no abdominal masses, no organomegaly Extremities: strength 5/5 in all extremities, good pulses in all extremities, no swelling or tenderness in the extremities, no edema. Skin: warm, dry, appropriate color, no rash Neuro: speech clear, oriented x 3, normal affect, responds appropriately to questions. Cranial nerves II through XII are intact. Distal sensation intact. Patient right upper extremity is slightly weaker than the left with both congressional assistant strength and with flexion at the elbow. She is able to hold both upper extremities up against gravity without any difficulty. Patient has below the right knee amputation of the right lower leg. Left leg has good strength. Course - Re-evaluation Re-evalutation: 12/10/18 01:25 After resolution of the patient's headache she feels much improved. On exam she had may be just very slight weakness in her right upper extremity comparison to the left. Again is very hard to tell this is the weakness and very slight. The patient herself even seem to have little bit of hard time turning this that she only noticed a weakness when she goes to push herself off the bed. Patient has no other neurologic deficits on exam. After resolution of her headache she says all of her sensation of weakness went away. Suggest as most likely she has a complex migraine. This in conjunction with the fact that she also has a supratherapeutic on INR which would make it less likely that she would have a thrombotic or embolic event causing a stroke. CT scan she evidence of bleeding. Headache was gradual in onset and not sudden in onset and therefore do not s uspect a subarachnoid hemorrhage. Patient has a long history of migraines. I informed patient that she still does have a very low threshold to return to ER if she has any recurrence of weakness or numbness she does have a history of previous strokes and therefore is at risk for strokes. I will decrease her Coumadin dose from 3 mg a day to 2 mg a day due to her elevated INR and have her follow-up with your doctor next 1 to 2 days for reevaluation. Patient agrees with plan and will be discharged home. Dictation of this chart was performed using voice recognition software; therefore, there may be some unintended grammatical errors. - Vital Signs Vital signs: Temp Pulse Resp BP Pulse Ox 97.6 F 66 16 98/62 L 98 12/09/18 20:49 12/09/18 22:12 12/09/18 22:12 12/09/18 22:12 12/09/18 22:12 - Laboratory Result Diagrams: 12/09/18 22:07 12/09/18 22:07 Laboratory results interpreted by me: 12/09/18 12/09/18 12/09/18 22:07 22:07 22:07 WBC 11.7 H Hgb 11.1 L Hct 34.9 L MCH 26.2 L MCHC 31.7 L RDW 16.4 H PT 40.7 H APTT 93.9 H Sodium 135.1 L Chloride 96 L BUN 26 H Est GFR (Non-Af Amer) 54 L Glucose 350 H AST 12 L - EKG Interpretation by Me Additional EKG results interpreted by me: 12/09/18 22:38 EKG is reviewed and interpreted by me. EKG shows sinus rhythm with a rate of [address] segment elevation. Patient has mild ST segment depression in leads V5 and V6 which is unchanged comparison to her previous EKG from October 16, 2018. [place] interval, QRS duration, QT intervals are within normal range. Discharge - Discharge Clinical Impression: Supratherapeutic INR Headache Qualifiers: Headache type: unspecified Headache chronicity pattern: acute headache Intractability: not intractable Qualified Code(s): R51 - Headache Condition: Good Disposition: HOME, SELF-CARE Additional Instructions: I suspect your symptoms today are related to a complex migraine. I suspect this because the fact that you had some very slight weakness in your right arm completely resolved with resolution of your headache. Also your Coumadin level is high which means that it is less likely that your blood would clot or cause a stroke. At this time I feel you are safe to be discharged home; however, I still want to have a very low threshold to return to ER if you have any recur rent weakness whatsoever, any facial droop, any slurring of your words, or recurrent headaches. I will prescribe 2 mg Coumadin tablets. Please take these instead of your 3 mg tablets as I feel that your 3 mg tablets are probably too high of a dose based on your current Coumadin level. Prescriptions: Warfarin Sodium [Coumadin 2 mg Tablet] 2 mg PO DAILY #30 tablet Referrals: THERESE NEUMANN DO [Primary Care Provider] - 12/11/18
[2018-12-09 22:42] LABS: INTERNATIONAL RATION (INR) 3.98; PROTHROMBIN TIME 40.7 SEC (11.4-15.4)
[2018-12-09 22:43] LABS: PARTIAL THROMBOPLASTIN TIME 93.9 SEC (23.5-35.8)
[2018-12-09 23:25] LABS: ALANINE AMINOTRANSFERASE 11 U/L (9-52); ALBUMIN 3.8 g/dL (3.5-5.0); ALKALINE PHOSPHATASE 47 U/L (38-126); ANION GAP 14 (5-19); ASPARTATE AMINO TRANSFERASE 12 U/L (14-36); BILIRUBIN,DIRECT 0.4 mg/dL (0.0-0.4); BILIRUBIN,TOTAL 0.5 mg/dL (0.2-1.3); BLOOD UREA NITROGEN 26 mg/dL (7-20); CALCIUM 9.9 mg/dL (8.4-10.2); CARBON DIOXIDE 25 mmol/L (22-30); CHLORIDE 96 mmol/L (98-107); GLUCOSE 350 mg/dL (75-110); POTASSIUM 4.2 mmol/L (3.6-5.0); SODIUM 135.1 mmol/L (137-145)
[2018-12-10] MEDS ORDERED: HYDROMORPHONE HCL INJ/PF 2 MG/ML AMPULE IV ONE (00:04)
[2018-12-10 02:03] VITALS: BP 111/51
--- NOTE | 2018-12-11 10:28 | EKG REPORT ---
SEVERITY:- ABNORMAL ECG - SINUS RHYTHM PROBABLE LEFT ATRIAL ABNORMALITY PROBABLE INFERIOR INFARCT, AGE INDETERMINATE LATERAL LEADS ARE ALSO INVOLVED : Confirmed by: Sal Solis 11-Dec-2018 10:27:29
== END 2018-12-10 02:04 | disposition home or self-care (01) ==
LOC: ER 20:31
DX: R79.1 Abnormal coagulation profile (principal); R51 Headache; Z89.511 Acquired absence of right leg below knee; I48.0 Paroxysmal atrial fibrillation; Z79.01 Long term (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 of anticoagulants; R53.1 Weakness; I50.9 Heart failure, unspecified; I25.10 Atherosclerotic heart disease of native coronary artery without angina pectoris; I11.0 Hypertensive heart disease with heart failure; E11.9 Type 2 diabetes mellitus without complications; J44.9 Chronic obstructive pulmonary disease, unspecified
CPT/HCPCS: 93005; 99284; 96374; 36415; 85025; 85610; 85730; 80053; 84484; 71045; 70450; 93010; J1200; J2765; J1170

== ENCOUNTER 2019-02-03 00:47 | Inpatient (IN) | payer MEDICAID, MEDICARE ==
--- NOTE | 2019-02-03 02:12 | ER Document Report ---
ED Respiratory Problem - General Chief Complaint: Shortness Of Breath Stated Complaint: SHORTNESS OF BREATH Time Seen by Provider: 02/03/19 01:46 Mode of Arrival: Medic Information source: Patient TRAVEL OUTSIDE OF THE [place] IN LAST 30 DAYS: No - HPI Patient complains to provider of: Cough, Short of breath, Other - Congestion Onset: Yesterday Duration: Better Quality of pain: No pain Pain Level: Denies Short of Breath: Moderate Chest pain/discomfort: Constant Cough: Productive Sputum amount: Small Sputum color: Yellow Sputum consistency: Mucoid Associated symptoms: Congestion, Cough, Short of breath Similar symptoms previously: Yes Recently seen / treated by doctor: No - Related Data Allergies/Adverse Reactions: amlodipine Allergy (Verified 10/16/18 18:46) isosorbide [From Imdur] Allergy (Verified 10/16/18 18:46) zolpidem [From Ambien] Allergy (Verified 10/16/18 18:46) Past Medical History - General Information source: Patient - Social History Smoking Status: Former Smoker Frequency of alcohol use: None Drug Abuse: None Family History: CVA, DM, Hypertension Patient has suicidal ideation: No Patient has homicidal ideation: No - Past Medical History Cardiac Medical History: Reports: Hx Atrial Fibrillation, Hx Congestive Heart Failure, Hx Coronary Artery Disease, Hx DVT, Hx Heart Attack, Hx Hypertension, Hx Peripheral Vascular Disease Pulmonary Medical History: Reports: Hx Bronchitis, Hx COPD, Hx Pneumonia Endocrine Medical History: Reports: Hx Diabetes Mellitus Type 2 Renal/ Medical History: Reports: Hx Kidney Stones, Hx Renal Insufficiency. Denies: Hx Peritoneal Dialysis GI Medical History: Reports: Hx Gastroesophageal Reflux Disease, Hx Hiatal Hernia, Hx Irritable Bowel Musculoskeletal Medical History: Reports Hx Arthritis, Reports Hx Musculoskeletal Deformity, Reports Hx Musculoskeletal Trauma Skin Medical History: Reports Hx Cellulitis Psychiatric Medical History: Reports: Hx Anxiety, Hx Depression Past Surgical History: Reports: Hx Abdominal Surgery, Hx Cardiac Surgery - CABG, Hx Section - x2, Hx Cholecystectomy, Hx Coronary Artery Bypass Graft - x3, Hx Orthopedic Surgery - left knee/ r BKA, Hx Tubal Ligation, Other - Ventral hernia repair - Immunizations Hx Diphtheria, Pertussis, Tetanus Vaccination: No Hx Pneumococcal Vaccination: 07/23/09 Review of Systems - Review of Systems Constitutional: No symptoms reported EENT: No symptoms reported Cardiovascular: No symptoms reported Respiratory: Cough, Short of breath Gastrointestinal: No symptoms reported Genitourinary: No symptoms reported Female Genitourinary: No symptoms reported Musculoskeletal: Other - Right shoulder pain. Skin: No symptoms reported Hematologic/Lymphatic: No symptoms reported Neurological/Psychological: No symptoms reported -: Yes All other systems reviewed and negative Physical Exam - Vital signs Vitals: Temp Pulse Resp BP Pulse Ox 97.8 F 58 L 18 150/69 H 92 02/03/19 01:01 02/03/19 01:01 02/03/19 01:01 02/03/19 01:01 02/03/19 01:01 Interpretation: Normal - General General appearance: Appears well, Alert In distress: Mild - HEENT Head: Normocephalic, Atraumatic Eyes: Normal Pupils: PERRL - Respiratory Respiratory status: No respiratory distress Chest status: Nontender Breath sounds: Rales, Rhonchi Chest palpation: Normal - Cardiovascular Rhythm: Regular Heart sounds: Normal auscultation Murmur: No - Abdominal Inspection: Normal Distension: No distension Bowel sounds: Normal Tenderness: Nontender Organomegaly: No organomegaly - Back Back: Normal, Nontender - Extremities General upper extremity: Normal inspection, Nontender, Normal color, Normal ROM, Normal temperature General lower extremity: Nontender, Edema, Normal color, Normal ROM, Normal t emperature, Other - Right BKA.. No: Antonio's sign Shoulder: Normal - Neurological Neuro grossly intact: Yes Cognition: Normal Orientation: AAOx4 Valeri Coma Scale Eye Opening: Spontaneous [place] Coma Scale Verbal: Oriented [place] Coma Scale Motor: Obeys Commands Valeri Coma Scale Total: 15 Speech: Normal Motor strength normal: LUE, RUE, LLE, RLE Sensory: Normal - Psychological Associated symptoms: Normal affect, Normal mood - Skin Skin Temperature: Warm Skin Moisture: Dry Skin Color: Normal Course - Re-evaluation Re-evalutation: 02/03/19 03:51 Reevaluation I discussed patient labs and x-ray with her and inform her that she will be admitted to the hospital by the hospitalist for further management. - Vital Signs Vital signs: Temp Pulse Resp BP Pulse Ox 99.0 F 86 15 156/79 H 98 02/03/19 03:59 02/03/19 03:59 02/03/19 04:02 02/03/19 04:02 02/03/19 04:02 - Laboratory Result Diagrams: 02/03/19 02:00 02/03/19 02:00 Laboratory results interpreted by me: 02/03/19 02/03/19 02/03/19 02:00 02:00 02:00 Hgb 9.9 L Hct 31.7 L MCH 25.8 L MCHC 31.4 L RDW 17.9 H BUN 23 H Est GFR (Non-Af Amer) 55 L Glucose 339 H Lactic Acid Magnesium AST 263 H ALT 163 H Creatine Kinase 145 H NT-Pro-B Natriuret Pep 7320 H 02/03/19 02/03/19 02:00 02:00 Hgb Hct MCH MCHC RDW BUN Est GFR (Non-Af Amer) Glucose Lactic Acid 2.7 H Magnesium 1.3 L AST ALT Creatine Kinase NT-Pro-B Natriuret Pep - Diagnostic Test Radiology reviewed: Reports reviewed Radiology results interpreted by me: Chest x-ray shows left lower lobe haziness. - EKG Interpretation by Me EKG shows normal: Sinus rhythm Rate: Bradycardia When compared to previous EKG there are: No significant change Additional EKG results interpreted by me: 02/03/19 03:[address] and T wave changes. - Transfer of Care Notes: 02/03/19 03:49 Patient will be admitted to the hospital by the hospitalist on-call Dr. Boston for further medical management. Discharge - Discharge Clinical Impression: Shortness of breath at rest Acute exacerbation of CHF (congestive heart failure) Qualifiers: Heart failure type: unspecified Qualified Code(s): I50.9 - Heart failure, unspecified Condition: Stable Disposition: ADMITTED INPATIENT Admitting Provider: Darvin (Hospitalist) Unit Admitted: Telemetry
[2019-02-03 02:44] LABS: ABSOLUTE BASOPHILS # (AUTO) 0.1 10^3/uL (0.0-0.2); ABSOLUTE EOSINOPHILS # (AUTO) 0.1 10^3/uL (0.0-0.6); ABSOLUTE MONOCYTES (AUTO) 0.5 10^3/uL (0.1-1.4); ABSOLUTE NEUT (AUTO) 6.7 10^3/uL (1.7-8.2); BASOPHILS % (AUTO) 0.9 % (0-2); EOSINOPHILS % (AUTO) 1.1 % (0-6); HEMATOCRIT 31.7 % (36.0-47.0); HEMOGLOBIN 9.9 g/dL (12.0-15.5); LYMPHOCYTES % (AUTO) 21.6 % (13-45); MEAN CORPUSCULAR HEMOGLOBIN 25.8 pg (27.0-33.4); MEAN CORPUSCULAR HGB CONC 31.4 g/dL (32.0-36.0); MEAN CORPUSCULAR VOLUME 82 fl (80-97); MONOCYTES % (AUTO) 5.5 % (3-13); PLATELET COUNT 307 10^3/uL (150-450); RED BLOOD COUNT 3.85 10^6/uL (3.72-5.28); RED CELL DISTRIBUTION WIDTH 17.9 % (11.5-14.0); SEGMENTED NEUTROPHILS % (AUTO) 70.9 % (42-78); TOTAL CELLS COUNTED % (AUTO) 100 %; WHITE BLOOD COUNT 9.4 10^3/uL (4.0-10.5)
--- NOTE | 2019-02-03 03:03 | RADIOLOGY REPORT (SQ) ---
EXAM DESCRIPTION: X-ray single view chest. CLINICAL HISTORY: 48 years Female, SOB COMPARISON: 12/09/2018 at 9:22 PM and 10/16/2018 TECHNIQUE: Single portable x-ray view of the chest performed on 02/03/2019 at 2:43 AM FINDINGS: The lungs are well expanded. There is hazy opacification projecting over the left inferior hemithorax likely related to overlying soft tissue artifact. Underlying atelectasis or inflammatory changes are not excluded. There is no evidence of a pneumothorax. The cardiac silhouette is stable and is likely within normal limits considering the portable technique. There are remote postsurgical changes of the mediastinum. The mediastinal contours are normal. No acute osseous abnormality is identified. No focal soft tissue abnormalities are seen. Lines and tubes: None. IMPRESSION: 1. Hazy opacification projecting over the left inferior hemithorax which may be related to overlying soft tissue artifact. Underlying atelectasis or inflammatory changes are not entirely excluded.
[2019-02-03 03:04] LABS: ALANINE AMINOTRANSFERASE 163 U/L (9-52); ALBUMIN 3.8 g/dL (3.5-5.0); ALKALINE PHOSPHATASE 73 U/L (38-126); ANION GAP 12 (5-19); ASPARTATE AMINO TRANSFERASE 263 U/L (14-36); BILIRUBIN,DIRECT 0.4 mg/dL (0.0-0.4); BILIRUBIN,TOTAL 0.5 mg/dL (0.2-1.3); BLOOD UREA NITROGEN 23 mg/dL (7-20); CALCIUM 8.8 mg/dL (8.4-10.2); CARBON DIOXIDE 25 mmol/L (22-30); CHLORIDE 100 mmol/L (98-107); CREATINE KINASE 145 U/L (30-135); GLUCOSE 339 mg/dL (75-110); POTASSIUM 4.5 mmol/L (3.6-5.0); SODIUM 137.4 mmol/L (137-145); TOTAL PROTEIN 7.4 g/dL (6.3-8.2)
[2019-02-03 03:16] LABS: CREATINE KINASE MB 2.24 ng/mL (<4.55); NT PRO BNP 7320 pg/mL (<125)
[2019-02-03 03:17] LABS: TROPONIN I < 0.012 ng/mL
[2019-02-03] MEDS ORDERED: FUROSEMIDE INJ/PF 40 MG/4 ML SDV IV ONE (03:45)
[2019-02-03 05:00] LABS: PARTIAL THROMBOPLASTIN TIME 126.7 SEC (23.5-35.8)
[2019-02-03 05:19] LABS: PROTHROMBIN TIME > 120.0 SEC (11.4-15.4)
[2019-02-03 05:30] LABS: APPEARANCE,URINE SLIGHTLY-CLOUDY; BILIRUBIN,URINE NEGATIVE (NEGATIVE); COLOR,URINE YELLOW; GLUCOSE, URINE >=500 mg/dL (NEGATIVE); KETONES,URINE NEGATIVE (NEGATIVE); LEUKOCYTE ESTERASE,URINE NEGATIVE (NEGATIVE); NITRITE,URINE NEGATIVE (NEGATIVE); PROTEIN,URINE >=500 mg/dL (NEGATIVE); URINE SPECIFIC GRAVITY 1.026; UROBILINOGEN,URINE NEGATIVE mg/dL (<2.0)
[2019-02-03] MEDS ORDERED: PHYTONADIONE INJ 10 MG/1 ML AMPULE SUBCUT ONE (06:03)
--- NOTE | 2019-02-03 06:12 | PDOC H&P ---
History of Present Illness Admission Date/PCP: 02/03/19 04:00 THERESE NEUMANN DO Patient complains of: Dyspnea History of Present Illness: HELDER DECKER is a 48 year old female who presents the emergency room with acute onset dyspnea. Patient indicates that she had some mild increased dyspnea on the evening of 02/02/2019 and went to bed thinking it would probably improve. The patient then woke up suddenly shortly before midnight with extremely severe dyspnea with severe air hunger and inability to speak due to her shortness of breath and a sensation that she was drowning while she was lying down. She managed to signal to her daughter and that she needed help and they brought her to the emergency room for treatment. She now states that she can speak a few words at a time but she still feels dyspneic after treatment in the ER. She denies accompanying and associated signs and symptoms with the exception of a mild minimally productive cough which began after she was treated in the emergency room. She she admits prior similar episodes related to heart problems, but never quite this extreme. She has not identified any aggravating or ameliorating factors for her acute dyspnea. In the ER the patient was found to have dyspnea and hypoxia with an elevated BNP. Her serum lactate was 2.7 and her blood sugar was 333. Patient was subsequently admitted to the hospital for further evaluation and treatment. Past Medical History Cardiac Medical History: Reports: Atrial Fibrillation, Congestive Heart Failure, Coronary Artery Disease, DVT, Myocardial Infarction, Hypertension, Peripheral Vascular Disease Pulmonary Medical History: Reports: Bronchitis, Chronic Obstructive Pulmonary Disease (COPD), Pneumonia EENT Medical History: Denies: Cataracts, Ears - Hearing aids Neurological Medical History: Denies: Hemorrhagic CVA, Ischemic CVA, Migraine, Seizures Endocrine Medical History: Reports: Diabetes Mellitus Type 2, Obesity Denies: Diabetes Mellitus Type 1, Hyperthyroidism, Hypothyroidism Renal/ Medical History: Reports: Chronic Kidney Disease Denies: Nephrolithiasis Malignancy Medical History: Reports: None GI Medical History: Reports: Gastroesophageal Reflux Disease, Hiatal Hernia Denies: Cirrhosis, Crohn's Disease, Hepatitis, Ulcerative Colitis Musculoskeltal Medical History: Reports: Arthritis Denies: Fibromyalgia, Gout Skin Medical History: Denies: Eczema, Psoriasis Psychiatric Medical History: Reports: Depression, Tobacco Dependency Denies: Alcohol Dependency, Substance Abuse Traumatic Medical History: Reports: None Hematology: Reports: Anemia Denies: Bleeding Tendencies Infectious Medical History: Reports: None Past Surgical History Past Surgical History: Reports: Amputation, Section - x2, Cholecystectomy, Coronary Artery Bypass Graft - x3, Orthopedic Surgery - There is a show mild what you have opacity or 2008-year- left knee/ r BKA, Tubal Ligation, Other - Ventral hernia repair Social History Information Source: Patient Lives with: Spouse/Significant other Smoking Status: Former Smoker Frequency of Alcohol Use: Rare Hx Recreational Drug Use: No Drugs: None Hx Prescription Drug Abuse: No - Advance Directive Resuscitation Status: Full Code Surrogate healthcare decision maker:: Zay Decker Family History Family History: CVA, DM, Hypertension Parental Family History Reviewed: Yes Children Family History Reviewed: No Sibling(s) Family History Reviewed.: Yes Medication/Allergy Home Medications: Carvedilol [Coreg 3.125 mg Tablet] 3.125 mg PO Q12 06/26/17 Metoclopramide HCl [Reglan 10 mg Tablet] 10 mg PO MEALSHS 06/26/17 Oxycodone HCl [Oxycodone HCl 10 MG Tablet] 10 mg PO Q8 06/26/17 Pantoprazole Sodium [Protonix] 40 mg PO DAILY 06/26/17 Tizanidine HCl [Zanaflex] 4 mg PO Q8 06/26/17 Aspirin [Ecotrin 81 mg EC Tablet] 81 mg PO DAILY tabec 06/29/17 Ascorbic Acid [Vitamin C 500 mg Tablet] 500 mg PO DAILYP PRN 10/17/18 Buspirone HCl [Buspar 5 mg Tablet] 1 tab PO BID 10/17/18 Citalopram Hydrobromide [Celexa 40 mg Tablet] 1 tab PO DAILY 10/17/18 Doxepin HCl [Silenor] 6 mg PO QHS 10/17/18 Gabapentin 600 mg PO QID 10/17/18 Lisinopril [Prinivil 5 mg Tablet] 5 mg PO DAILY 10/17/18 Metformin HCl [Glucophage 500 mg Tablet] 1,000 mg PO QPM 10/17/18 Metformin HCl [Glucophage 500 mg Tablet] 500 mg PO QAM 10/17/18 Multivitamin [Multiple Vitamins] 1 each PO DAILY 10/17/18 Mv,Margarito,Iron,Mn/Folic Acid/Chol [Hair, Skin and Nails Capsule] 1 each PO DAILY 10/17/18 Warfarin Sodium [Coumadin 2 mg Tablet] 2 mg PO DAILY #30 tablet 12/10/18 Allergies/Adverse Reactions: amlodipine Allergy (Verified 02/03/19 05:54) isosorbide [From Imdur] Allergy (Verified 02/03/19 05:54) zolpidem [From Ambien] Allergy (Verified 02/03/19 05:54) Review of Systems Constitutional: ABSENT: chills, fever(s) Eyes: ABSENT: visual disturbances, other - Ocular pain Ears: ABSENT: hearing changes, other - Ear pain Nose, Mouth, and Throat: ABSENT: mouth pain, sore throat Cardiovascular: PRESENT: as per HPI, orthropnea. ABSENT: chest pain, edema, palpitations Respiratory: PRESENT: as per HPI, cough, dyspnea, sputum - Minimal yellowish mucus. ABSENT: hemoptysis Gastrointestinal: ABSENT: abdominal pain, constipation, diarrhea, nausea, vomiting Genitourinary: ABSENT: dysuria, hematuria Musculoskeletal: ABSENT: back pain, joint swelling, muscle weakness Integumentary: ABSENT: pruritus, rash Neurological: ABSENT: confusion, convulsions, focal weakness, memory loss, syncope Psychiatric: ABSENT: anxiety, depression Endocrine: ABSENT: cold intolerance, heat intolerance Hematologic/Lymphatic: ABSENT: easy bleeding, easy bruising Physical Exam Vital Signs: Temp Pulse Resp BP Pulse Ox 99.0 F 86 22 H 128/66 H 96 02/03/19 03:59 02/03/19 03:59 02/03/19 03:59 02/03/19 03:59 02/03/19 02:15 Intake & Output 02/01/19 02/02/19 02/03/19 23:59 23:59 23:59 Weight 84.822 kg General appearance: PRESENT: cooperative, mild distress - Secondary to dyspnea Head exam: PRESENT: atraumatic, normocephalic Eye exam: PRESENT: conjunctiva pink. ABSENT: conjunctival injection, scleral icterus Ear exam: PRESENT: normal external ear exam. ABSENT: bleeding, drainage Mouth exam: PRESENT: dry mucosa, neck supple Neck exam: PRESENT: JVD - Bilateral. ABSENT: thyromegaly, tracheal deviation Respiratory exam: PRESENT: rales - Bibasilar rales, symmetrical, tachypnea. ABSENT: wheezes Cardiovascular exam: PRESENT: gallop - S4 gallop, RRR. ABSENT: clicks, rubs Pulses: PRESENT: normal radial pulses, normal dorsalis pedis pul Vascular exam: PRESENT: normal capillary refill. ABSENT: pallor GI/Abdominal exam: PRESENT: normal bowel sounds, soft Rectal exam: PRESENT: deferred Extremities exam: PRESENT: other - Status post right BKA. ABSENT: joint swelling, pedal edema Musculoskeletal exam: ABSENT: deformity, dislocation, tenderness Neurological exam: PRESENT: alert, oriented to person, oriented to place, oriented to time, oriented to situation, CN II-XII grossly intact. ABSENT: motor sensory deficit Psychiatric exam: PRESENT: appropriate affect, normal mood Skin exam: PRESENT: dry, intact, warm. ABSENT: jaundice, rash, urticaria Results Laboratory Results: 02/03/19 02:00 02/03/19 02:00 02/03/19 02/03/19 02/03/19 02:00 02:00 02:00 WBC 9.4 RBC 3.85 Hgb 9.9 L Hct 31.7 L MCV 82 MCH 25.8 L MCHC 31.4 L RDW 17.9 H Plt Count 307 Seg Neutrophils % 70.9 Lymphocytes % 21.6 Monocytes % 5.5 Eosinophils % 1.1 Basophils % 0.9 Absolute Neutrophils 6.7 Absolute Lymphocytes 2.0 Absolute Monocytes 0.5 Absolute Eosinophils 0.1 Absolute Basophils 0.1 Sodium 137.4 Potassium 4.5 Chloride 100 Carbon Dioxide 25 Anion Gap 12 BUN 23 H Creatinine 1.06 Est GFR ( Amer) > 60 Est GFR (Non-Af Amer) 55 L Glucose 339 H Lactic Acid 2.7 H Calcium 8.8 Magnesium Total Bilirubin 0.5 AST 263 H ALT 163 H Alkaline Phosphatase 73 Total Protein 7.4 Albumin 3.8 02/03/19 02:00 WBC RBC Hgb Hct MCV MCH MCHC RDW Plt Count Seg Neutrophils % Lymphocytes % Monocytes % Eosinophils % Basophils % Absolute Neutrophils Absolute Lymphocytes Absolute Monocytes Absolute Eosinophils Absolute Basophils Sodium Potassium Chloride Carbon Dioxide Anion Gap BUN Creatinine Est GFR ( Amer) Est GFR (Non-Af Amer) Glucose Lactic Acid Calcium Magnesium 1.3 L Total Bilirubin AST ALT Alkaline Phosphatase Total Protein Albumin 02/03/19 02/03/19 02:00 02:00 Creatine Kinase 145 H CK-MB (CK-2) 2.24 Troponin I < 0.012 NT-Pro-B Natriuret Pep 7320 H Impressions: Chest X-Ray 02/03/19 02:10 IMPRESSION: 1. Hazy opacification projecting over the left inferior hemithorax which may be related to overlying soft tissue artifact. Underlying atelectasis or inflammatory changes are not entirely excluded. Assessment and Plan - Diagnosis (1) Acute exacerbation of CHF (congestive heart failure) Qualifiers: Heart failure type: unspecified Qualified Code(s): I50.9 - Heart failure, unspecified Is this a current diagnosis for this admission?: Yes Plan: Patient's heart failure be treated with intravenous diuretics and morphine sulfate 2 mg IV every hour as needed for dyspnea/orthopnea. Serial cardiac enzymes and EKGs will be obtained and further evaluation and treatment will be undertaken as appropriate. She will be placed on her current congestive heart failure therapy regimen with changes made as appropriate if required. Daily metabolic profiles and CBCs will be obtained. A daily magnesium level will also be obtained. (2) Uncontrolled diabetes mellitus Qualifiers: Diabetes mellitus type: type 2 Is this a current diagnosis for this admission?: Yes Plan: Patient be returned to her he recommended diabetic therapy and a diabetic diet. Hemoglobin A1c will be obtained to evaluate her current state of care. Before meals and at bedtime blood sugars will be obtained with sliding scale insulin for hyperglycemia. A hypoglycemic protocol will be in place. Adjustments of the patient's therapeutic regiment will be made as required. (3) Elevated lactic acid level Is this a current diagnosis for this admission?: Yes Plan: Serial lactic acid levels will be obtained. There is no obvious source of infection to consider sepsis however a vigilant observation will be undertaken. (4) CAD (coronary artery disease), [place] coronary artery Qualifiers: [place] vs. transplanted heart: [place] heart Associated angina: without angina Qualified Code(s): I25.10 - Atherosclerotic heart disease of [place] coronary artery without angina pectoris Is this a current diagnosis for this admission?: Yes Plan: Patient will be continued on her usual heart medications. She will be observed closely throughout her hospital course for any evidence of cardiac pathology. Serial cardiac enzymes and EKGs will be obtained. - Time Time Spent with patient: 25-34 minutes Medications reviewed and adjusted accordingly: Yes Anticipated discharge: Home - Inpatient Certification Based on my medical assessment, after consideration of the patient's comorbidities, presenting symptoms, or acuity I expect that the services needed warrant INPATIENT care.: Yes I certify that my determination is in accordance with my understanding of Medicare's requirements for reasonable and necessary INPATIENT services [42 CFR 412.3e].: Yes Medical Necessity: Significant Comorbidiites Make Outpatient Treatment Too Risky, Need Close Monitoring Due to Risk of Patient Decompensation, Need For Continuous Telemetry Monitoring, Risk of Complication if Not Cared For in Hospital
[2019-02-03] MEDS ORDERED: MAG HYDROX/AL HYDROX/SIMETH SUSP 30 ML UDCUP PO PRN (06:15)
[2019-02-03] MEDS ORDERED: MAGNESIUM HYDROXIDE SUSP 30 ML UDCUP PO PRN (06:15)
--- NOTE | 2019-02-03 06:15 | ADVANCED CARE ---
- Diagnosis (1) Acute exacerbation of CHF (congestive heart failure) Diagnosis Current: Yes (2) Uncontrolled diabetes mellitus Diagnosis Current: Yes (3) Elevated lactic acid level Diagnosis Current: Yes (4) CAD (coronary artery disease), [place] coronary artery Diagnosis Current: Yes Attendance: Patient and myself. Resuscitation Status: Full Code Discussion: Patient wishes to be full code resuscitation status for this hospital admission. Further she has named her aZy Decker as her designated surrogate medical decision-maker. Care Planning Goals: 1. Patient will be full CODE STATUS for this hospitalization. 2. Zay Decker is the patient's designated surrogate medical decision maker. Document(s) Completed: The following information be entered into the patient's permanent medical record, current medical record and current orders via EMR entry: 1. Patient will be full CODE STATUS for this hospitalization. 2. Zay Decker is the patient's designated surrogate medical decision maker. Time Spent: 5 minutes
[2019-02-03] MEDS ORDERED: MORPHINE SULFATE 10 MG/ML INJ IV PRN ×5 (06:21→06:29)
[2019-02-03] MEDS ORDERED: METOPROLOL TARTRATE PF/INJ 5 MG/5 ML SDV IV PRN (06:22)
[2019-02-03] MEDS ORDERED: GLUCAGON,HUMAN RECOMB 1 MG INJ IM PRN (06:23)
[2019-02-03] MEDS ORDERED: DEXTROSE 50%-WATER 25 GM/50 ML DISP.SYRIN IV PRN ×2 (06:23)
[2019-02-03] MEDS ORDERED: DEXTROSE 40% GEL 15 GM TUBE PO PRN ×2 (06:23)
[2019-02-03] MEDS ORDERED: PHYTONADIONE 5 MG TABLET PO ONE ×2 (06:25→14:00)
[2019-02-03] MEDS: INSULIN REG, HUMAN 100 UNIT/ML 3 ML VIAL (PYX) SUBCUT SCH ×4 (08:01→23:24)
[2019-02-03 08:24] LABS: CREATINE KINASE MB 2.43 ng/mL (<4.55)
[2019-02-03 08:30] LABS: FREE T3 3.9 pg/mL (2.77-5.27); FREE T4 (FREE THYROXINE) 1.65 ng/dL (0.78-2.19); TROPONIN I < 0.012 ng/mL
[2019-02-03 08:43] LABS: THYROID STIMULATING HORMONE 3.52 uIU/mL (0.47-4.68)
[2019-02-03] MEDS: DOCUSATE SODIUM 100 MG CAPSULE PO SCH ×2 (10:40→17:09)
[2019-02-03] MEDS: FAMOTIDINE 20 MG TABLET PO SCH ×2 (10:41→21:58)
[2019-02-03] MEDS ORDERED: TIZANIDINE HCL 4 MG TABLET PO PRN (14:45)
[2019-02-03] MEDS: ONDANSETRON HCL INJ/PF 4 MG/2 ML SDV IV PRN ×2 (14:50→23:28)
[2019-02-03 16:24] LABS: TROPONIN I < 0.012 ng/mL
[2019-02-03] MEDS: HEPARIN SOD (PORCINE) 5,000 UNIT/ML 1 ML SYRINGE SUBCUT SCH (16:57)
[2019-02-03] MEDS: OXYCODONE HCL IR 5 MG TABLET PO PRN (17:02)
[2019-02-03] MEDS: METOCLOPRAMIDE HCL 10 MG TABLET PO SCH ×2 (17:02→21:58)
[2019-02-03 18:13] LABS: INTERNATIONAL RATION (INR) 2.22
[2019-02-03 18:41] LABS: CREATINE KINASE MB 1.62 ng/mL (<4.55)
[2019-02-03 18:44] LABS: TROPONIN I < 0.012 ng/mL
--- NOTE | 2019-02-03 21:42 | Progress Note ---
Provider Note Provider Note: Patient is a 48-year-old female with a past medical history of atrial fibrillation, CHF, CAD, DVT, [place], hypertension, PVD, COPD, DM 2, obesity, CKD, GERD, depression, and tobacco dependence, chronically anticoagulated on Coumadin who was admitted early this morning by the ground surveillance systems operator for acute CHF exacerbation. Overnight events, vital signs, laboratory evaluation, imaging results, and orders were reviewed. Agree with plan of care as established by the previous provider. Blood pressures remain slightly elevated; will resume her home medication regiment. If she remains hypertensive in the morning may need to make adjustments to her home medications. IV hydralazine is available as needed for blood pressure control. We will continue to diuresis with IV furosemide. Patient continues on a consistent carb/cardiac diet. Have ensure that daily weights and strict I&O's are ordered. We will also ask the registered dietitian to meet with the patient as she had multiple nutritional risk factors (obesity, diabetes, CHF, hypertension). The patient received vitamin K 10 mg IM and viatmin K 10 mg p.o. today for t reatment of supratherapeutic INR. Follow-up INR this afternoon is therapeutic at 2.22. However, it was likely her INR will continue to trend down in response to vitamin K therapy. Therefore, we will start Coumadin 1 mg tonight (takes 3 mg nightly at home) with repeat PT/INR in the morning. We will need to discuss risks/benefits (CHADS Vasc vs. HAS-BLED Scores) with patient. Patient would like do better on a DOAC and does appear to have insurance coverage (Medicare).
[2019-02-03] MEDS: ATORVASTATIN CALCIUM 80 MG TABLET PO SCH (21:58)
[2019-02-03] MEDS: CARVEDILOL 3.125 MG TABLET PO SCH (21:58)
[2019-02-03] MEDS: BUSPIRONE HCL 10 MG TABLET PO SCH (21:58)
[2019-02-03] MEDS: GABAPENTIN 300 MG CAPSULE PO SCH (21:58)
[2019-02-03] MEDS: FUROSEMIDE INJ/PF 20 MG/2 ML SDV IV SCH (21:59)
[2019-02-03] MEDS ORDERED: (PENDING PHARMACY ID) (Buspirone Hcl [Buspar 5 Mg Tablet] 5 MG) PO SCH (22:00)
[2019-02-03] MEDS ORDERED: WARFARIN SODIUM 1 MG TABLET PO SCH (23:00)
[2019-02-04] MEDS: HYDRALAZINE HCL INJ/PF 20 MG/1 ML SDV IV PRN (00:10)
[2019-02-04 00:15] LABS: APPEARANCE,URINE CLEAR; BILIRUBIN,URINE NEGATIVE (NEGATIVE); COLOR,URINE STRAW; GLUCOSE, URINE 50 mg/dL (NEGATIVE); KETONES,URINE NEGATIVE (NEGATIVE); LEUKOCYTE ESTERASE,URINE NEGATIVE (NEGATIVE); NITRITE,URINE NEGATIVE (NEGATIVE); PROTEIN,URINE 100 mg/dL (NEGATIVE); URINE SPECIFIC GRAVITY 1.004; UROBILINOGEN,URINE NEGATIVE mg/dL (<2.0)
[2019-02-04] MEDS: OXYCODONE HCL IR 5 MG TABLET PO PRN ×3 (02:07→22:07)
[2019-02-04] MEDS: ONDANSETRON HCL INJ/PF 4 MG/2 ML SDV IV PRN (03:52)
[2019-02-04] MEDS: TRAZODONE HCL 50 MG TABLET PO PRN (03:54)
[2019-02-04] MEDS: PANTOPRAZOLE SODIUM 40 MG TABLET.DR PO SCH (05:43)
[2019-02-04] MEDS: GABAPENTIN 300 MG CAPSULE PO SCH ×3 (05:43→22:05)
[2019-02-04 06:00] LABS: INTERNATIONAL RATION (INR) 1.36; PROTHROMBIN TIME 16.8 SEC (11.4-15.4)
[2019-02-04 06:04] LABS: HEMATOCRIT 29.8 % (36.0-47.0); HEMOGLOBIN 9.5 g/dL (12.0-15.5); MEAN CORPUSCULAR HEMOGLOBIN 25.7 pg (27.0-33.4); MEAN CORPUSCULAR VOLUME 80 fl (80-97); PLATELET COUNT 288 10^3/uL (150-450); RED BLOOD COUNT 3.72 10^6/uL (3.72-5.28)
[2019-02-04 06:10] LABS: ANION GAP 13 (5-19); BLOOD UREA NITROGEN 19 mg/dL (7-20); CARBON DIOXIDE 25 mmol/L (22-30); CHLORIDE 98 mmol/L (98-107); CHOLESTEROL 161.59 mg/dL (0-200); GLUCOSE 228 mg/dL (75-110); POTASSIUM 4.6 mmol/L (3.6-5.0); SODIUM 135.7 mmol/L (137-145); TRIGLYCERIDES 253 mg/dL (<150)
[2019-02-04 06:20] LABS: DIRECT LDL 91 mg/dL (<100)
[2019-02-04 06:28] LABS: VLDL CHOLESTEROL 50.6 mg/dL (10-31)
[2019-02-04] MEDS: INSULIN REG, HUMAN 100 UNIT/ML 3 ML VIAL (PYX) SUBCUT SCH ×4 (09:09→22:05)
[2019-02-04] MEDS: METOCLOPRAMIDE HCL 10 MG TABLET PO SCH ×4 (09:11→22:04)
[2019-02-04] MEDS: BUSPIRONE HCL 10 MG TABLET PO SCH ×2 (09:11→22:03)
[2019-02-04] MEDS: CITALOPRAM HYDROBROMIDE 20 MG TABLET PO SCH (09:12)
[2019-02-04] MEDS: DOCUSATE SODIUM 100 MG CAPSULE PO SCH ×2 (09:13→17:17)
[2019-02-04] MEDS: ASPIRIN 81 MG TABLET, ENT COATED PO SCH (09:13)
[2019-02-04] MEDS: MAGNESIUM OXIDE 400 MG TABLET PO SCH ×2 (09:14→17:18)
[2019-02-04] MEDS: FAMOTIDINE 20 MG TABLET PO SCH ×2 (09:14→22:04)
[2019-02-04] MEDS: MULTIVITAMIN TABLET PO SCH (09:15)
[2019-02-04] MEDS: ASCORBIC ACID 500 MG TABLET PO SCH (09:15)
[2019-02-04] MEDS: ACETAMINOPHEN 325 MG TABLET PO PRN (09:16)
[2019-02-04] MEDS: LISINOPRIL 5 MG TABLET PO SCH (09:25)
[2019-02-04] MEDS: FUROSEMIDE INJ/PF 20 MG/2 ML SDV IV SCH ×2 (09:25→22:05)
[2019-02-04] MEDS: CARVEDILOL 3.125 MG TABLET PO SCH ×2 (09:25→22:04)
[2019-02-04] MEDS: FENOFIBRATE NANOCRYSTALLIZED 145 MG TABLET PO SCH (09:25)
[2019-02-04] MEDS ORDERED: (PENDING PHARMACY ID) (Citalopram Hydrobromide [Celexa 40 Mg Tablet] 40 MG) PO SCH (10:00)
[2019-02-04 10:50] LABS: APPEARANCE,URINE CLEAR; BILIRUBIN,URINE NEGATIVE (NEGATIVE); COLOR,URINE YELLOW; GLUCOSE, URINE 150 mg/dL (NEGATIVE); KETONES,URINE TRACE mg/dL (NEGATIVE); LEUKOCYTE ESTERASE,URINE NEGATIVE (NEGATIVE); NITRITE,URINE NEGATIVE (NEGATIVE); PROTEIN,URINE >=500 mg/dL (NEGATIVE); UROBILINOGEN,URINE NEGATIVE mg/dL (<2.0)
[2019-02-04] MEDS: HEPARIN SOD (PORCINE) 5,000 UNIT/ML 1 ML SYRINGE SUBCUT SCH ×2 (14:06→22:05)
[2019-02-04] MEDS: RIVAROXABAN 10 MG TABLET PO SCH (17:17)
--- NOTE | 2019-02-04 17:22 | Progress Note Acknowledgement ---
Progress Note Acknowledgement Progess Note Acknowledgement: I, the undersigned member of the medical staff with appropriate privileges and with supervisory authority over Brenda Tyler, a [facility] practice allied health professional, acknowledge that I have reviewed the progress notes entered on this patient, and in my professional judgment believe that the assessment made and/or any care evidenced was appropriate
--- NOTE | 2019-02-04 17:34 | PDOC PROGRESS REPORT ---
Subjective Progress Note for:: 02/04/19 Subjective:: Patient is a 48-year-old female with a past medical history of atrial fibrillation, CHF, CAD, DVT, [place], hypertension, PVD, COPD, DM 2, obesity, CKD, GERD, depression, and tobacco dependence, chronically anticoagulated on Coumadin who was admitted 02/04/2019 for CHF exacerbation and supratherapeutic INR. Patient was seen on morning rounds. She was found resting in bed comfortably on supplemental oxygen via nasal cannula; she is not home O2 dependent. She does report dyspnea and orthopnea have improved significantly. She does continue to feel slight dyspnea at rest and fatigue as compared to her baseline. We discussed her Coumadin; she has had multiple episodes of supratherapeutic INR; recently ran out of 2 mg and so began taking 3 mg dosing daily proximally 2 days prior to her admission. So although this could account for some of her elevation it does not fully explain the level being high enough to be undetectable. She reports that she was previously on Xarelto but after insurance change she was transitioned to Coumadin. She is interested in retur holli to Xarelto if we can provide medication assistance; have discussed this with discharge planning. Otherwise, she denies fever, chills, chest pain, palpitations, cough, abdominal pain, and diarrhea. She does report 2 episodes of emesis without nausea which she attributes to her gastroparesis. She has no other questions or concerns at this time. No concerns per nursing. Reason For Visit: ACUTE EXACERBATION OF CHRONIC CHF Physical Exam Vital Signs: Temp Pulse Resp BP Pulse Ox 98.7 F 61 19 120/67 96 02/04/19 15:56 02/04/19 15:56 02/04/19 15:56 02/04/19 15:56 02/04/19 15:56 Intake & Output 02/03/19 02/04/19 02/05/19 06:59 06:59 06:59 Intake Total 600 480 Output Total 800 600 Balance -800 600 -120 Weight 84.822 kg General appearance: PRESENT: no acute distress, cooperative, well-developed, well-nourished - Overweight Head exam: PRESENT: atraumatic, normocephalic Eye exam: PRESENT: conjunctiva pink, EOMI, PERRLA. ABSENT: scleral icterus Mouth exam: PRESENT: moist, tongue midline Neck exam: ABSENT: carotid bruit, JVD, lymphadenopathy, thyromegaly Respiratory exam: PRESENT: clear to auscultation amaya, symmetrical, unlabored, other - Supplemental oxygen via nasal cannula. ABSENT: rales, rhonchi, wheezes Cardiovascular exam: PRESENT: RRR, +S1, +S2. ABSENT: diastolic murmur, rubs, systolic murmur Vascular exam: PRESENT: normal capillary refill GI/Abdominal exam: PRESENT: normal bowel sounds, soft. ABSENT: distended, guarding, mass, organolmegaly, rebound, tenderness Rectal exam: PRESENT: deferred Extremities exam: PRESENT: full ROM, other - Right BKA. ABSENT: calf tenderness, clubbing, pedal edema Neurological exam: PRESENT: alert, awake, oriented to person, oriented to place, oriented to time, oriented to situation, CN II-XII grossly intact. ABSENT: motor sensory deficit Psychiatric exam: PRESENT: appropriate affect, normal mood. ABSENT: homicidal ideation, suicidal ideation Skin exam: PRESENT: dry, intact, warm. ABSENT: cyanosis, rash Results Laboratory Results: 02/04/19 05:00 02/04/19 05:00 02/03/19 02/04/19 02/04/19 23:53 05:00 05:00 WBC 8.0 RBC 3.72 Hgb 9.5 L Hct 29.8 L MCV 80 MCH 25.7 L MCHC 32.0 RDW 18.0 H Plt Count 288 Sodium 135.7 L Potassium 4.6 Chloride 98 Carbon Dioxide 25 Anion Gap 13 BUN 19 Creatinine 0.94 Est GFR ( Amer) > 60 Est GFR (Non-Af Amer) > 60 Glucose 228 H Calcium 9.0 Magnesium 1.3 L Triglycerides 253 H Cholesterol 161.59 LDL Cholesterol Direct 91 VLDL Cholesterol 50.6 H HDL Cholesterol 27 L Urine Color STRAW Urine Appearance CLEAR Urine pH 6.0 Ur Specific [place] 1.004 Urine Protein 100 H Urine Glucose (UA) 50 H Urine Ketones NEGATIVE Urine Blood SMALL H Urine Nitrite NEGATIVE Ur Leukocyte Esterase NEGATIVE Urine WBC (Auto) 0 Urine RBC (Auto) 2 02/04/19 10:12 WBC RBC Hgb Hct MCV MCH MCHC RDW Plt Count Sodium Potassium Chloride Carbon Dioxide Anion Gap BUN Creatinine Est GFR ( Amer) Est GFR (Non-Af Amer) Glucose Calcium Magnesium Triglycerides Cholesterol LDL Cholesterol Direct VLDL Cholesterol HDL Cholesterol Urine Color YELLOW Urine Appearance CLEAR Urine pH 6.0 Ur Specific [place] 1.010 Urine Protein >=500 H Urine Glucose (UA) 150 H Urine Ketones TRACE H Urine Blood SMALL H Urine Nitrite NEGATIVE Ur Leukocyte Esterase NEGATIVE Urine WBC (Auto) 1 Urine RBC (Auto) 1 02/03/19 02/03/19 02/03/19 02:00 02:00 07:38 Creatine Kinase 145 H 122 CK-MB (CK-2) 2.24 Troponin I < 0.012 NT-Pro-B Natriuret Pep 7320 H 02/03/19 02/03/19 02/03/19 07:38 15:27 15:27 Creatine Kinase 104 CK-MB (CK-2) 2.43 1.60 Troponin I < 0.012 < 0.012 NT-Pro-B Natriuret Pep 02/03/19 02/03/19 17:50 17:50 Creatine Kinase 110 CK-MB (CK-2) 1.62 Troponin I < 0.012 NT-Pro-B Natriuret Pep Impressions: Chest X-Ray 02/03/19 02:10 IMPRESSION: 1. Hazy opacification projecting over the left inferior hemithorax which may be related to overlying soft tissue artifact. Underlying atelectasis or inflammatory changes are not entirely excluded. Assessment and Plan - Diagnosis (1) Acute exacerbation of CHF (congestive heart failure) Qualifiers: Heart failure type: unspecified Qualified Code(s): I50.9 - Heart failure, unspecified Is this a current diagnosis for this admission?: Yes Plan: Improved; patient's lung sounds are clear with decreased oxygen requirement and reduced dyspnea at rest/orthopnea. Last echocardiogram from 2016 revealed Low normal LVEF with grade 2 diastolic dysfunction Patient is admitted to [facility] on continuous cardiac telemetry. Have continued her home dose carvedilol, lisinopril, aspirin and statin therapy. Continue to diurese with IV furosemide. Stop Coumadin and start Xarelto (history of atrial fibrillation and thrombus) Cardiac diet. Daily weights and strict I&O's. (2) Diabetes Qualifiers: Diabetes mellitus type: type 2 Diabetes mellitus penitentiary insulin use: with gymnastic coach use Chronic kidney disease stage: stage 3 (moderate) Is this a current diagnosis for this admission?: Yes Plan: A1c is 8.5%. Patient is placed on a cardiac/consistent carb diet. Accu-Cheks before meals and at bedtime with sliding scale insulin. Registered dietitian and certified breastfeeding educator consulted. (3) CAD (coronary artery disease), [place] coronary artery Qualifiers: [place] vs. transplanted heart: [place] heart Associated angina: without an michael Qualified Code(s): I25.10 - Atherosclerotic heart disease of [place] coronary artery without angina pectoris Is this a current diagnosis for this admission?: Yes Plan: Patient is chest pain-free. Troponins are negative. Continue monitor on telemetry. Daily statin and aspirin therapy. Antihypertensives as above. (4) Elevated lactic acid level Is this a current diagnosis for this admission?: Yes Plan: Resolved; likely secondary to acute CHF exacerbation resulting in hypoxia (5) COPD (chronic obstructive pulmonary disease) Qualifiers: COPD type: unspecified COPD Qualified Code(s): J44.9 - Chronic obstructive pulmonary disease, unspecified Is this a current diagnosis for this admission?: Yes Plan: Stable and without exacerbation at this time. As needed nebulizer treatments. Supplemental oxygen as needed. No indications for steroid or antibiotic therapy at this time. (6) Gastroparesis Is this a current diagnosis for this admission?: Yes Plan: Continue Reglan 10 mg before meals at bedtime. Continue daily PPI. Antiemetics as needed. (7) Supratherapeutic INR Is this a current diagnosis for this admission?: Yes Plan: Resolved; INR was undetectable at time of admission. Now down to 1.36 following IM and p.o. vitamin K. Discharge planning met with the patient today; have been able to provide patient assistance cards for Xarelto. Patient indicates that she will be able to afford the co-pay. Will discontinue Coumadin and start Xarelto.
--- NOTE | 2019-02-04 19:03 | EKG REPORT ---
SEVERITY:- ABNORMAL ECG - SINUS RHYTHM PROBABLE INFERIOR INFARCT, AGE INDETERMINATE BORDERLINE PROLONGED QT INTERVAL : Confirmed by: Rojas Jo MD 04-Feb-2019 19:03:10
--- NOTE | 2019-02-04 19:03 | EKG REPORT ---
SEVERITY:- ABNORMAL ECG - SINUS RHYTHM PROBABLE LEFT ATRIAL ABNORMALITY PROBABLE INFERIOR INFARCT, AGE INDETERMINATE : Confirmed by: Rojas Jo MD 04-Feb-2019 19:02:33
[2019-02-04] MEDS ORDERED: WARFARIN SODIUM 2 MG TABLET PO SCH (22:00)
[2019-02-04] MEDS: ATORVASTATIN CALCIUM 80 MG TABLET PO SCH (22:03)
[2019-02-05 05:12] LABS: HEMATOCRIT 28.7 % (36.0-47.0); HEMOGLOBIN 9.1 g/dL (12.0-15.5); MEAN CORPUSCULAR HEMOGLOBIN 25.6 pg (27.0-33.4); MEAN CORPUSCULAR HGB CONC 31.8 g/dL (32.0-36.0); MEAN CORPUSCULAR VOLUME 81 fl (80-97); PLATELET COUNT 276 10^3/uL (150-450); RED BLOOD COUNT 3.56 10^6/uL (3.72-5.28); RED CELL DISTRIBUTION WIDTH 18.4 % (11.5-14.0); WHITE BLOOD COUNT 6.9 10^3/uL (4.0-10.5)
[2019-02-05 05:25] LABS: PROTHROMBIN TIME 21.1 SEC (11.4-15.4)
[2019-02-05 05:30] LABS: ANION GAP 11 (5-19); BLOOD UREA NITROGEN 32 mg/dL (7-20); CALCIUM 9.2 mg/dL (8.4-10.2); CARBON DIOXIDE 27 mmol/L (22-30); CHLORIDE 98 mmol/L (98-107); GLUCOSE 159 mg/dL (75-110); POTASSIUM 4.5 mmol/L (3.6-5.0); SODIUM 136.4 mmol/L (137-145)
[2019-02-05] MEDS: PANTOPRAZOLE SODIUM 40 MG TABLET.DR PO SCH (06:07)
[2019-02-05] MEDS: OXYCODONE HCL IR 5 MG TABLET PO PRN ×3 (06:07→23:53)
[2019-02-05] MEDS: HEPARIN SOD (PORCINE) 5,000 UNIT/ML 1 ML SYRINGE SUBCUT SCH ×3 (06:07→21:57)
[2019-02-05] MEDS: GABAPENTIN 300 MG CAPSULE PO SCH ×3 (06:07→21:54)
[2019-02-05] MEDS: INSULIN REG, HUMAN 100 UNIT/ML 3 ML VIAL (PYX) SUBCUT SCH ×4 (09:00→21:57)
[2019-02-05] MEDS: FAMOTIDINE 20 MG TABLET PO SCH ×2 (09:12→21:57)
[2019-02-05] MEDS: CITALOPRAM HYDROBROMIDE 20 MG TABLET PO SCH (09:12)
[2019-02-05] MEDS: ASCORBIC ACID 500 MG TABLET PO SCH (09:13)
[2019-02-05] MEDS: MAGNESIUM OXIDE 400 MG TABLET PO SCH ×2 (09:13→17:10)
[2019-02-05] MEDS: CARVEDILOL 3.125 MG TABLET PO SCH ×2 (09:14→21:54)
[2019-02-05] MEDS: FENOFIBRATE NANOCRYSTALLIZED 145 MG TABLET PO SCH (09:14)
[2019-02-05] MEDS: METOCLOPRAMIDE HCL 10 MG TABLET PO SCH ×4 (09:14→21:57)
[2019-02-05] MEDS: MULTIVITAMIN TABLET PO SCH (09:16)
[2019-02-05] MEDS: DOCUSATE SODIUM 100 MG CAPSULE PO SCH ×2 (09:16→17:10)
[2019-02-05] MEDS: LISINOPRIL 5 MG TABLET PO SCH (09:17)
[2019-02-05] MEDS: BUSPIRONE HCL 10 MG TABLET PO SCH ×2 (09:17→21:54)
[2019-02-05] MEDS: ASPIRIN 81 MG TABLET, ENT COATED PO SCH (09:24)
[2019-02-05] MEDS: ACETAMINOPHEN 325 MG TABLET PO PRN (16:52)
[2019-02-05] MEDS: RIVAROXABAN 10 MG TABLET PO SCH (16:53)
--- NOTE | 2019-02-05 18:16 | PDOC PROGRESS REPORT ---
Subjective Progress Note for:: 02/05/19 Subjective:: Patient is a 48-year-old female with a past medical history of atrial fibrillation, CHF, CAD, DVT, [place], hypertension, PVD, COPD, DM 2, obesity, CKD, GERD, depression, and tobacco dependence, chronically anticoagulated on Coumadin who was admitted 02/04/2019 for CHF exacerbation and supratherapeutic INR. Patient was seen on afternoon rounds. She was found resting in bed comfortably on supplemental oxygen via nasal cannula at 1 lpm; she is not home O2 dependent. Oxygen was turned off and at rest she maintain saturations greater than 89% with normal heart rate. She reports that overall she is feeling better and does not note any dyspnea while at rest. She does admit that she has not been out of bed since admission. She denies fever, chills, chest pain, palpitations, cough, abdominal pain, and diarrhea. No further episodes of emesis. She has no other questions or concerns at this time. No concerns per nursing. Reason For Visit: ACUTE EXACERBATION OF CHRONIC CHF Physical Exam Vital Signs: Temp Pulse Resp BP Pulse Ox 99.5 F 87 20 171/77 H 93 02/05/19 15:26 02/05/19 15:26 02/05/19 15:26 02/05/19 15:26 02/05/19 15:26 Intake & Output 02/04/19 02/05/19 02/06/19 06:59 06:59 06:59 Intake Total 600 1182 1062 Output Total 1100 2880 Balance 600 82 -1818 General appearance: PRESENT: no acute distress, cooperative, obese, well- developed, well-nourished Head exam: PRESENT: atraumatic, normocephalic Eye exam: PRESENT: conjunctiva pink, EOMI, PERRLA. ABSENT: scleral icterus Mouth exam: PRESENT: moist, tongue midline Teeth exam: PRESENT: poor dentation Neck exam: ABSENT: carotid bruit, JVD, lymphadenopathy, thyromegaly Respiratory exam: PRESENT: clear to auscultation amaya, symmetrical, unlabored. ABSENT: rales, rhonchi, wheezes Cardiovascular exam: PRESENT: RRR, +S1, +S2. ABSENT: diastolic murmur, rubs, systolic murmur Pulses: PRESENT: normal dorsalis pedis pul Vascular exam: PRESENT: normal capillary refill GI/Abdominal exam: PRESENT: normal bowel sounds, soft. ABSENT: distended, guarding, mass, organolmegaly, rebound, tenderness Rectal exam: PRESENT: deferred Extremities exam: PRESENT: other - Right BKA. ABSENT: calf tenderness, clubbing, pedal edema Neurological exam: PRESENT: alert, awake, oriented to person, oriented to place, oriented to time, oriented to situation, CN II-XII grossly intact. ABSENT: motor sensory deficit Psychiatric exam: PRESENT: normal mood, unusual affect. ABSENT: homicidal ideation, suicidal ideation Skin exam: PRESENT: dry, intact, warm. ABSENT: cyanosis, rash Results Laboratory Results: 02/05/19 04:32 02/05/19 04:32 02/05/19 02/05/19 04:32 04:32 WBC 6.9 RBC 3.56 L Hgb 9.1 L Hct 28.7 L MCV 81 MCH 25.6 L MCHC 31.8 L RDW 18.4 H Plt Count 276 Sodium 136.4 L Potassium 4.5 Chloride 98 Carbon Dioxide 27 Anion Gap 11 BUN 32 H Creatinine 1.43 H Est GFR ( Amer) 47 L Est GFR (Non-Af Amer) 39 L Glucose 159 H Calcium 9.2 Magnesium 1.8 02/03/19 02/03/19 02/03/19 02:00 02:00 07:38 Creatine Kinase 145 H 122 CK-MB (CK-2) 2.24 Troponin I < 0.012 NT-Pro-B Natriuret Pep 7320 H 02/03/19 02/03/19 02/03/19 07:38 15:27 15:27 Creatine Kinase 104 CK-MB (CK-2) 2.43 1.60 Troponin I < 0.012 < 0.012 NT-Pro-B Natriuret Pep 02/03/19 02/03/19 17:50 17:50 Creatine Kinase 110 CK-MB (CK-2) 1.62 Troponin I < 0.012 NT-Pro-B Natriuret Pep Impressions: Chest X-Ray 02/03/19 02:10 IMPRESSION: 1. Hazy opacification projecting over the left inferior hemithorax which may be related to overlying soft tissue artifact. Underlying atelectasis or inflammatory changes are not entirely excluded. Assessment and Plan - Diagnosis (1) Acute exacerbation of CHF (congestive heart failure) Qualifiers: Heart failure type: unspecified Qualified Code(s): I50.9 - Heart failure, unspecified Is this a current diagnosis for this admission?: Yes Plan: Improved; patient's lung sounds are clear and now tolerating room air at rest. Patient reports dyspnea and orthopnea have resolved. Last echocardiogram from 2017 revealed Low normal LVEF with grade 2 diastolic dysfunction Patient is admitted to [facility] on continuous cardiac telemetry. Have continued her home dose carvedilol, lisinopril, aspirin and statin therapy. Hold furosemide. Stop Coumadin and start Xarelto (history of atrial fibrillation and thrombus) Cardiac diet. Daily weights and strict I&O's. (2) Diabetes Qualifiers: Diabetes mellitus type: type 2 Diabetes mellitus long-term insulin use: with director long term care use Chronic kidney disease stage: stage 3 (moderate) Is this a current diagnosis for this admission?: Yes Plan: A1c is 8.5%. Patient is placed on a cardiac/consistent carb diet. Accu-Cheks before meals and at bedtime with sliding scale insulin. Registered dietitian and server assistant consulted. (3) CAD (coronary artery disease), [place] coronary artery Qualifiers: [place] vs. transplanted heart: [place] heart Associated angina: without angina Qualified Code(s): I25.10 - Atherosclerotic heart disease of [place] coronary artery without angina pectoris Is this a current diagnosis for this admission?: Yes Plan: Patient is chest pain-free. Troponins are negative. Continue monitor on telemetry. Daily statin and aspirin therapy. Antihypertensives as above. (4) Elevated lactic acid level Is this a current diagnosis for this admission?: Yes Plan: Resolved; likely secondary to acute CHF exacerbation resulting in hypoxia (5) COPD (chronic obstructive pulmonary disease) Qualifiers: COPD type: unspecified COPD Qualified Code(s): J44.9 - Chronic obstructive pulmonary disease, unspecified Is this a current diagnosis for this admission?: Yes Plan: Stable and without exacerbation at this time. As needed nebulizer treatments. Supplemental oxygen as needed. No indications for steroid or antibiotic therapy at this time. (6) Gastroparesis Is this a current diagnosis for this admission?: Yes Plan: Continue Reglan 10 mg before meals at bedtime. Continue daily PPI. Antiemetics as needed. (7) Supratherapeutic INR Is this a current diagnosis for this admission?: Yes Plan: Resolved; INR was undetectable at time of admission. Now down to 1.36 following IM and p.o. vitamin K. Discharge planning met with the patient today; have been able to provide patient assistance cards for Xarelto. Patient indicates that she will be able to afford the co-pay. Will discontinue Coumadin and start Xarelto. (8) DANNI (acute kidney injury) Is this a current diagnosis for this admission?: Yes Plan: Creatinine bumped from 0.9 to 1.5. Secondary to diuresis with IV furosemide. IV furosemide is discontinued. Avoid nephrotoxic medications as able. Encourage p.o. fluids. Daily chemistry. - Time Time Spent with patient: 25-34 minutes Medications reviewed and adjusted accordingly: Yes Anticipated discharge: Home Within: within 24 hours
[2019-02-05] MEDS: ATORVASTATIN CALCIUM 80 MG TABLET PO SCH (21:54)
[2019-02-05] MEDS: TRAZODONE HCL 50 MG TABLET PO PRN (22:32)
[2019-02-06] MEDS: HYDRALAZINE HCL INJ/PF 20 MG/1 ML SDV IV PRN (00:40)
[2019-02-06] MEDS: HEPARIN SOD (PORCINE) 5,000 UNIT/ML 1 ML SYRINGE SUBCUT SCH ×3 (06:29→21:47)
[2019-02-06] MEDS: PANTOPRAZOLE SODIUM 40 MG TABLET.DR PO SCH (06:29)
[2019-02-06] MEDS: GABAPENTIN 300 MG CAPSULE PO SCH ×3 (06:29→21:48)
[2019-02-06 06:58] LABS: HEMATOCRIT 30.3 % (36.0-47.0); HEMOGLOBIN 9.5 g/dL (12.0-15.5); MEAN CORPUSCULAR HEMOGLOBIN 25.4 pg (27.0-33.4); MEAN CORPUSCULAR HGB CONC 31.5 g/dL (32.0-36.0); MEAN CORPUSCULAR VOLUME 81 fl (80-97); PLATELET COUNT 289 10^3/uL (150-450); RED BLOOD COUNT 3.75 10^6/uL (3.72-5.28); RED CELL DISTRIBUTION WIDTH 18.2 % (11.5-14.0); WHITE BLOOD COUNT 6.5 10^3/uL (4.0-10.5)
[2019-02-06 06:59] LABS: INTERNATIONAL RATION (INR) 1.28; PROTHROMBIN TIME 16.1 SEC (11.4-15.4)
[2019-02-06 07:26] LABS: ANION GAP 9 (5-19); BLOOD UREA NITROGEN 26 mg/dL (7-20); CALCIUM 9.5 mg/dL (8.4-10.2); CARBON DIOXIDE 30 mmol/L (22-30); CHLORIDE 99 mmol/L (98-107); GLUCOSE 227 mg/dL (75-110); SODIUM 138.1 mmol/L (137-145)
[2019-02-06] MEDS: OXYCODONE HCL IR 5 MG TABLET PO PRN (08:44)
[2019-02-06] MEDS: METOCLOPRAMIDE HCL 10 MG TABLET PO SCH ×4 (08:45→21:48)
[2019-02-06] MEDS: INSULIN REG, HUMAN 100 UNIT/ML 3 ML VIAL (PYX) SUBCUT SCH ×4 (08:46→21:47)
[2019-02-06] MEDS: MAGNESIUM OXIDE 400 MG TABLET PO SCH ×2 (09:09→17:29)
[2019-02-06] MEDS: BUSPIRONE HCL 10 MG TABLET PO SCH ×2 (09:10→21:48)
[2019-02-06] MEDS: DOCUSATE SODIUM 100 MG CAPSULE PO SCH ×2 (09:10→17:29)
[2019-02-06] MEDS: FAMOTIDINE 20 MG TABLET PO SCH ×2 (09:11→21:48)
[2019-02-06] MEDS: ASCORBIC ACID 500 MG TABLET PO SCH (09:11)
[2019-02-06] MEDS: CARVEDILOL 3.125 MG TABLET PO SCH ×2 (09:11→21:50)
[2019-02-06] MEDS: FENOFIBRATE NANOCRYSTALLIZED 145 MG TABLET PO SCH (09:11)
[2019-02-06] MEDS: MULTIVITAMIN TABLET PO SCH (09:11)
[2019-02-06] MEDS: LISINOPRIL 5 MG TABLET PO SCH (09:11)
[2019-02-06] MEDS: ASPIRIN 81 MG TABLET, ENT COATED PO SCH (09:11)
[2019-02-06] MEDS: CITALOPRAM HYDROBROMIDE 20 MG TABLET PO SCH (09:11)
[2019-02-06] MEDS ORDERED: TIZANIDINE HCL 4 MG TABLET PO PRN (12:43)
[2019-02-06 13:34] LABS: ARTERIAL BLOOD BASE EXCESS 3.1 mmol/L; ARTERIAL BLOOD FIO2 24%; ARTERIAL BLOOD H2CO3 1.36 mmol/L (1.05-1.35); ARTERIAL BLOOD HCO3 28.1 mmol/L (20-24); ARTERIAL BLOOD O2 SATURATION 93.1 % (94-98); ARTERIAL BLOOD PCO2 45.2 mmHg (35-45); ARTERIAL BLOOD PH 7.41 (7.35-7.45); ARTERIAL BLOOD PO2 65.7 mmHg (80-100); ARTERIAL BLOOD TOTAL CO2 29.5 mmol/L (21-25)
[2019-02-06] MEDS: RIVAROXABAN 10 MG TABLET PO SCH (17:29)
--- NOTE | 2019-02-06 19:12 | PDOC PROGRESS REPORT ---
Subjective Progress Note for:: 02/06/19 Subjective:: Patient is a 48-year-old female with a past medical history of atrial fibrillation, CHF, CAD, DVT, [place], hypertension, PVD, COPD, DM 2, obesity, CKD, GERD, depression, and tobacco dependence, chronically anticoagulated on Coumadin who was admitted 02/04/2019 for CHF exacerbation and supratherapeutic INR. Patient was seen on morning rounds. She was found resting in bed comfortably on supplemental oxygen via nasal cannula at 1 lpm; she is not home O2 dependent. Oxygen was turned off and at rest she maintain saturations greater than 89% with normal heart rate. She reports that overall she is feeling better and does not note any dyspnea while at rest. She does fall to sleep multiple times during our conversations. She tells me this is due to not sleeping well at night. She denies fever, chills, chest pain, palpitations, cough, abdominal pain, and diarrhea. No further episodes of emesis. She has no other questions or concerns at this time. No concerns per nursing. Reason For Visit: ACUTE EXACERBATION OF CHRONIC CHF Physical Exam Vital Signs: Temp Pulse Resp BP Pulse Ox 98.2 F 78 18 163/73 H 95 02/06/19 15:36 02/06/19 15:36 02/06/19 15:36 02/06/19 15:36 02/06/19 15:36 Intake & Output 02/05/19 02/06/19 02/07/19 06:59 06:59 06:59 Intake Total 1182 1782 Output Total 1100 2880 Balance 82 -1098 Weight 84.2 kg General appearance: PRESENT: no acute distress, obese, well-developed, well-no urished Head exam: PRESENT: atraumatic, normocephalic Eye exam: PRESENT: conjunctiva pink, EOMI, PERRLA. ABSENT: scleral icterus Mouth exam: PRESENT: moist, tongue midline Teeth exam: PRESENT: poor dentation Neck exam: ABSENT: carotid bruit, JVD, lymphadenopathy, thyromegaly Respiratory exam: PRESENT: clear to auscultation amaya, prolonged expiratory phas, symmetrical, unlabored. ABSENT: rales, rhonchi, wheezes Cardiovascular exam: PRESENT: RRR, +S1, +S2. ABSENT: diastolic murmur, rubs, systolic murmur Pulses: PRESENT: normal dorsalis pedis pul Vascular exam: PRESENT: normal capillary refill GI/Abdominal exam: PRESENT: normal bowel sounds, soft. ABSENT: distended, guarding, mass, organolmegaly, rebound, tenderness Rectal exam: PRESENT: deferred Extremities exam: PRESENT: full ROM, other - Rt BKA. ABSENT: calf tenderness, clubbing, pedal edema Neurological exam: PRESENT: alert, awake, oriented to person, oriented to place, oriented to time, oriented to situation, CN II-XII grossly intact. ABSENT: motor sensory deficit Psychiatric exam: PRESENT: appropriate affect, normal mood. ABSENT: homicidal ideation, suicidal ideation Skin exam: PRESENT: dry, intact, warm. ABSENT: cyanosis, rash Results Laboratory Results: 02/06/19 06:10 02/06/19 06:10 02/06/19 02/06/19 02/06/19 06:10 06:10 13:20 WBC 6.5 RBC 3.75 Hgb 9.5 L Hct 30.3 L MCV 81 MCH 25.4 L MCHC 31.5 L RDW 18.2 H Plt Count 289 Carbonic Acid 1.36 H HCO3/H2CO3 Ratio 20:1 ABG pH 7.41 ABG pCO2 45.2 H ABG pO2 65.7 L ABG HCO3 28.1 H ABG O2 Saturation 93.1 L ABG Base Excess 3.1 FiO2 24% Sodium 138.1 Potassium 5.0 Chloride 99 Carbon Dioxide 30 Anion Gap 9 BUN 26 H Creatinine 1.03 Est GFR ( Amer) > 60 Est GFR (Non-Af Amer) 57 L Glucose 227 H Calcium 9.5 Magnesium 2.3 02/03/19 02/03/19 02/03/19 02:00 02:00 07:38 Creatine Kinase 145 H 122 CK-MB (CK-2) 2.24 Troponin I < 0.012 NT-Pro-B Natriuret Pep 7320 H 02/03/19 02/03/19 02/03/19 07:38 15:27 15:27 Creatine Kinase 104 CK-MB (CK-2) 2.43 1.60 Troponin I < 0.012 < 0.012 NT-Pro-B Natriuret Pep 02/03/19 02/03/19 17:50 17:50 Creatine Kinase 110 CK-MB (CK-2) 1.62 Troponin I < 0.012 NT-Pro-B Natriuret Pep Impressions: Chest X-Ray 02/03/19 02:10 IMPRESSION: 1. Hazy opacification projecting over the left inferior hemithorax which may be related to overlying soft tissue artifact. Underlying atelectasis or inflammatory changes are not entirely excluded. Assessment and Plan - Diagnosis (1) Acute exacerbation of CHF (congestive heart failure) Qualifiers: Heart failure type: unspecified Qualified Code(s): I50.9 - Heart failure, unspecified Is this a current diagnosis for this admission?: Yes Plan: Resolved. patient's lung sounds are clear and now tolerating room air at rest. Patient reports dyspnea and orthopnea have resolved. Last echocardiogram from 2017 revealed Low normal LVEF with grade 2 diastolic dysfunction Patient is admitted to [facility] on continuous cardiac telemetry. Have continued her home dose carvedilol, lisinopril, aspirin and statin therapy. Stop Coumadin and start Xarelto (history of atrial fibrillation and thrombus) Cardiac diet. Daily weights and strict I&O's. 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 Patient is placed on a cardiac/consistent carb diet. Accu-Cheks before meals and at bedtime with sliding scale insulin. Registered dietitian and critical care educator consulted. (3) CAD (coronary artery disease), [place] coronary artery Qualifiers: [place] vs. transplanted heart: [place] heart Associated angina: without angina Qualified Code(s): I25.10 - Atherosclerotic heart disease of [place] coronary artery without angina pectoris Is this a current diagnosis for this admission?: Yes Plan: Patient is chest pain-free. Troponins are negative. Continue monitor on telemetry. Daily statin and aspirin therapy. Antihypertensives as above. (4) Elevated lactic acid level Is this a current diagnosis for this admission?: Yes Plan: Resolved; likely secondary to acute CHF exacerbation resulting in hypoxia (5) COPD (chronic obstructive pulmonary disease) Qualifiers: COPD type: unspecified COPD Qualified Code(s): J44.9 - Chronic obstructive pulmonary disease, unspecified Is this a current diagnosis for this admission?: Yes Plan: Stable and without exacerbation at this time. ABG demonstrates chronic respiratory failure with hypercapnia. Would benefit from sleep study for CPAP/BiPAP. Will recommend outpatient pulmonology follow up. As needed nebulizer treatments. Supplemental oxygen as needed. No indications for steroid or antibiotic therapy at this time. (6) Gastroparesis Is this a current diagnosis for this admission?: Yes Plan: Continue Reglan 10 mg before meals at bedtime. Continue daily PPI. Antiemetics as needed. (7) Supratherapeutic INR Is this a current diagnosis for this admission?: Yes Plan: Resolved; INR was undetectable at time of admission. Now down to 1.36 following IM and p.o. vitamin K. Discharge planning met with the patient today; have been able to provide patient assistance cards for Xarelto. Patient indicates that she will be able to afford the co-pay. Will discontinue Coumadin and start Xarelto. (8) DANNI (acute kidney injury) Is this a current diagnosis for this admission?: Yes Plan: Creatinine bumped from 0.9 to 1.5. Secondary to diuresis with IV furosemide. IV furosemide is discontinued. Avoid nephrotoxic medications as able. Encourage p.o. fluids. Daily chemistry. - Time Time Spent with patient: 25-34 minutes Medications reviewed and adjusted accordingly: Yes Anticipated discharge: Home Within: within 24 hours
[2019-02-06] MEDS: ATORVASTATIN CALCIUM 80 MG TABLET PO SCH (21:50)
[2019-02-07] MEDS: OXYCODONE HCL IR 5 MG TABLET PO PRN ×2 (00:29→06:50)
[2019-02-07] MEDS: PANTOPRAZOLE SODIUM 40 MG TABLET.DR PO SCH (06:16)
[2019-02-07] MEDS: GABAPENTIN 300 MG CAPSULE PO SCH (06:16)
[2019-02-07] MEDS: HEPARIN SOD (PORCINE) 5,000 UNIT/ML 1 ML SYRINGE SUBCUT SCH (06:16)
[2019-02-07] MEDS: BUSPIRONE HCL 10 MG TABLET PO SCH (09:34)
[2019-02-07] MEDS: MULTIVITAMIN TABLET PO SCH (09:34)
[2019-02-07] MEDS: FENOFIBRATE NANOCRYSTALLIZED 145 MG TABLET PO SCH (09:34)
[2019-02-07] MEDS: LISINOPRIL 5 MG TABLET PO SCH (09:36)
[2019-02-07] MEDS: ASCORBIC ACID 500 MG TABLET PO SCH (09:36)
[2019-02-07] MEDS: CARVEDILOL 3.125 MG TABLET PO SCH (09:36)
[2019-02-07] MEDS: FAMOTIDINE 20 MG TABLET PO SCH (09:37)
[2019-02-07] MEDS: CITALOPRAM HYDROBROMIDE 20 MG TABLET PO SCH (09:37)
[2019-02-07] MEDS: METOCLOPRAMIDE HCL 10 MG TABLET PO SCH ×2 (09:37→12:42)
[2019-02-07] MEDS: ASPIRIN 81 MG TABLET, ENT COATED PO SCH (09:40)
[2019-02-07] MEDS: INSULIN REG, HUMAN 100 UNIT/ML 3 ML VIAL (PYX) SUBCUT SCH ×2 (09:42→12:42)
--- NOTE | 2019-02-07 09:58 | PDOC DISCHARGE SUMMARY ---
General - Admit/Disc Date/PCP Admission Date/Primary Care Provider: 02/03/19 04:00 THERESE NEUMANN, Discharge Date: 02/07/19 - Discharge Diagnosis (1) Acute exacerbation of CHF (congestive heart failure) Is this a current diagnosis for this admission?: Yes Summary: Resolved. patient's lung sounds are clear and now tolerating room air at rest. Patient reports dyspnea and orthopnea have resolved. Last echocardiogram from 2016 revealed Low normal LVEF with grade 2 diastolic dysfunction Patient was admitted to [facility] on continuous cardiac telemetry. She was continued her home dose carvedilol, lisinopril, aspirin and statin therapy. Discussed the macey multiple experiences with supratherapeutic INR. She met with the social media project manager and confirms that she will be able to afford the co-pay for Xarelto. Coumadin has been discontinued and she has been started on Xarelto. Patient was maintained on a cardiac diet and monitor with daily weights and strict I&O's. (2) Diabetes Is this a current diagnosis for this admission?: Yes Summary: A1c is 8.5%. Continue cardiac diet and resume outpatient medication regiment. Patient is encouraged to maintain dietary and medication compliance. Keep a log of glucose and presents to primary care provider at follow-up appointment. (3) CAD (coronary artery disease), [place] coronary artery Is this a current diagnosis for this admission?: Yes Summary: Patient remains chest pain-free. Troponins are negative. Continue monitor on telemetry. Daily statin and aspirin therapy. Antihypertensives as above. (4) Elevated lactic acid level Is this a current diagnosis for this admission?: Yes Summary: Resolved; likely secondary to acute CHF exacerbation resulting in hypoxia (5) COPD (chronic obstructive pulmonary disease) Is this a current diagnosis for this admission?: Yes Summary: Stable and without exacerbation at this time. ABG demonstrates chronic respiratory failure with hypercapnia. Would benefit from sleep study for CPAP/BiPAP. Recommend overnight sleep study and/or pulmonary follow-up. (6) Gastroparesis Is this a current diagnosis for this admission?: Yes Summary: Continue Reglan 10 mg before meals at bedtime. Continue daily PPI. (7) Supratherapeutic INR Is this a current diagnosis for this admission?: Yes Summary: Resolved; INR was undetectable at time of admission. Now down to 1.36 following IM and p.o. vitamin K. Discharge planning met with the patient; have been able to provide patient assistance cards for Xarelto. Patient indicated that she will be able to afford the co-pay. Have discontinued Coumadin and started Xarelto. (8) DANNI (acute kidney injury) Is this a current diagnosis for this admission?: Yes Summary: Resolved; secondary to diuresis with IV furosemide. - Additional Information Resuscitation Status: Full Code Discharge Diet: Cardiac, Diabetic Discharge Activity: Activity As Tolerated, Balance Activity w/Rest Prescriptions: Rivaroxaban [Xarelto 10 mg Tablet] 20 mg PO WSUPPER #30 tablet Home Medications: Ascorbic Acid [Vitamin C 500 mg Tablet] 500 mg PO DAILY 02/03/19 Aspirin [Ecotrin 81 mg EC Tablet] 81 mg PO DAILY 02/03/19 Atorvastatin Calcium [Lipitor 80 mg Tablet] 80 mg PO QHS 02/03/19 Buspirone HCl [Buspar 5 mg Tablet] 5 mg PO Q12 02/03/19 Carvedilol [Coreg 3.125 mg Tablet] 3.125 mg PO Q12 02/03/19 Citalopram Hydrobromide [Celexa 40 mg Tablet] 40 mg PO DAILY 02/03/19 Fenofibrate Nanocrystallized [Tricor 145 mg Tablet] 145 mg PO DAILY 02/03/19 Gabapentin [Neurontin] 600 mg PO Q6 02/03/19 Lisinopril [Zestril] 5 mg PO DAILY 02/03/19 Metformin HCl [Glucophage 500 mg Tablet] 1,000 mg PO WSUPPER 02/03/19 Metformin HCl [Glucophage 500 mg Tablet] 500 mg PO WBRKFST 02/03/19 Metoclopramide HCl [Reglan 10 mg Tablet] 10 mg PO MEALSHS 02/03/19 Multivitamin [Tab-A-Mariela (Multiple Vitamin) Tablet] 1 tab PO DAILY 02/03/19 NPH, Human Insulin Isophane [Humulin N (NPH) Insulin 100 unit/mL] 48 units SQ WSUPPER 02/03/19 Pantoprazole Sodium [Protonix [address] Tablet] 40 mg PO Q6AM 02/03/19 Trazodone HCl [Desyrel 50 mg Tablet] 50 mg PO HSP PRN 02/03/19 Acetaminophen [Tylenol 325 mg Tablet] 650 mg PO Q4HP PRN tablet 02/07/19 Docusate Sodium [Colace 100 mg Capsule] 100 mg PO BID capsule 02/07/19 Oxycodone HCl [Oxycodone HCl 10 MG Tablet] 5 mg PO Q8HP PRN #0 02/07/19 Rivaroxaban [Xarelto 10 mg Tablet] 20 mg PO WSUPPER #30 tablet 02/07/19 Tizanidine HCl [Zanaflex 4 mg Tablet] 2 mg PO Q8HP PRN #0 02/07/19 History of Present Illness History of Present Illness: Per H&P by Dr. Boston: HELDER SERNA is a 48 year old female who presents the emergency room with acute onset dyspnea. Patient indicates that she had some mild increased dyspnea on the evening of 02/02/2019 and went to bed thinking it would probably improve. The patient then woke up suddenly shortly before midnight with extremely severe dyspnea with severe air hunger and inability to speak due to her shortness of breath and a sensation that she was drowning while she was lying down. She managed to signal to her daughter and that she needed help and they brought her to the emergency room for treatment. She now states that she can speak a few words at a time but she still feels dyspneic after treatment in the ER. She denies accompanying and associated signs and symptoms with the exception of a mild minimally productive cough which began after she was treated in the emergency room. She she admits prior similar episodes related to heart problems, but never quite this extreme. She has not identified any aggravating or ameliorating factors for her acute dyspnea. In the ER the patient was found to have dyspnea and hypoxia with an elevated BNP. Her serum lactate was 2.7 and her blood sugar was 333. Patient was subsequently admitted to the hospital for further evaluation and treatment. Physical Exam Vital Signs: Temp Pulse Resp BP Pulse Ox 98.6 F 80 16 150/76 H 94 02/07/19 07:36 02/07/19 07:36 02/07/19 07:36 02/07/19 07:36 02/07/19 07:36 Intake & Output 02/06/19 02/07/19 02/08/19 06:59 06:59 06:59 Intake Total 1782 1322 Output Total 2880 1000 Balance -1098 322 Weight 84.2 kg 85.3 kg General appearance: PRESENT: no acute distress, obese, well-developed, well- nourished Head exam: PRESENT: atraumatic, normocephalic Eye exam: PRESENT: conjunctiva pink, EOMI, PERRLA. ABSENT: scleral icterus Mouth exam: PRESENT: moist, tongue midline Teeth exam: PRESENT: poor dentation Neck exam: ABSENT: carotid bruit, JVD, lymphadenopathy, thyromegaly Respiratory exam: PRESENT: clear to auscultation amaya, symmetrical, unlabored. ABSENT: rales, rhonchi, wheezes Cardiovascular exam: PRESENT: irregular rhythm, +S1, +S2. ABSENT: diastolic murmur, rubs, systolic murmur Pulses: PRESENT: normal dorsalis pedis pul Vascular exam: PRESENT: normal capillary refill GI/Abdominal exam: PRESENT: normal bowel sounds, soft. ABSENT: distended, guarding, mass, organolmegaly, rebound, tenderness Rectal exam: PRESENT: deferred Extremities exam: PRESENT: full ROM, other - Rt BKA. ABSENT: calf tenderness, clubbing, pedal edema Neurological exam: PRESENT: alert, awake, oriented to person, oriented to place, oriented to time, oriented to situation, CN II-XII grossly intact. ABSENT: motor sensory deficit Psychiatric exam: PRESENT: normal mood, unusual affect. ABSENT: homicidal ideation, suicidal ideation Skin exam: PRESENT: dry, intact, warm. ABSENT: cyanosis, rash Results Laboratory Results: 02/06/19 06:10 02/06/19 06:10 02/06/19 13:20 Carbonic Acid 1.36 H HCO3/H2CO3 Ratio 20:1 ABG pH 7.41 ABG pCO2 45.2 H ABG pO2 65.7 L ABG HCO3 28.1 H ABG O2 Saturation 93.1 L ABG Base Excess 3.1 FiO2 24% 02/03/19 02/03/19 02/03/19 02:00 02:00 07:38 Creatine Kinase 145 H 122 CK-MB (CK-2) 2.24 Troponin I < 0.012 NT-Pro-B Natriuret Pep 7320 H 02/03/19 02/03/19 02/03/19 07:38 15:27 15:27 Creatine Kinase 104 CK-MB (CK-2) 2.43 1.60 Troponin I < 0.012 < 0.012 NT-Pro-B Natriuret Pep 02/03/19 02/03/19 17:50 17:50 Creatine Kinase 110 CK-MB (CK-2) 1.62 Troponin I < 0.012 NT-Pro-B Natriuret Pep Impressions: Chest X-Ray 02/03/19 02:10 IMPRESSION: 1. Hazy opacification projecting over the left inferior hemithorax which may be related to overlying soft tissue artifact. Underlying atelectasis or inflammatory changes are not entirely excluded. Qualifiers - * PATIENT BEING DISCHARGED WITH ANY OF THE FOLLOWING DIAGNOSIS: No Acute Heart Failure - Is this a Heart Failure Patient?: Yes Documentation of LVEF assessment?: Planned for after discharge LVEF < 40%?: No- if no continue to question #3 3. Anticoagulant therapy for permanect/persistent/paraoxysmal Afib or Aflutter: Yes Follow-up Appointment scheduled within 7 days?: Yes Plan Discharge Plan: Discharge to home with home health nursing and physical therapy services. Patient is instructed to: Follow-up with your primary care provider within 1 week. Recommend that you discuss with your primary care recommendations for outpatient sleep study. Would also advise decrease of sedating medications as your respiratory status improved following dose reduction here. 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 Take your medications as prescribed. STOP Coumadin. Continue Xarelto. You have been provided discount cards/coupons to assist with this medication, Return to emergency department as needed for concerning symptoms.
[2019-02-07] MEDS: DOCUSATE SODIUM 100 MG CAPSULE PO SCH (11:30)
[2019-02-07 14:36] VITALS: BP 154/85
== END 2019-02-07 14:05 | disposition home health service (06) | DRG 291 ==
LOC: ER 00:47 → EH 04:00 → 3W 07:23 → 5 02-05 18:50
PROVIDERS: ADMIT Emergency Medicine; ATTEND Emergency Medicine
DX: I13.0 Hypertensive heart and chronic kidney disease with heart failure and stage 1 through stage 4 chronic kidney disease, or unspecified chronic kidney disease (principal); I50.33 Acute on chronic diastolic (congestive) heart failure; N17.9 Acute kidney failure, unspecified; Z88.8 Allergy status to other drugs, medicaments and biological substances; I48.91 Unspecified atrial fibrillation; I25.10 Atherosclerotic heart disease of native coronary artery without angina pectoris; Z86.718 Personal history of other venous thrombosis and embolism; Z79.01 Long term (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 of anticoagulants; I25.2 Old myocardial infarction; E11.51 Type 2 diabetes mellitus with diabetic peripheral angiopathy without gangrene; J44.9 Chronic obstructive pulmonary disease, unspecified; Z87.442 Personal history of urinary calculi; K21.9 Gastro-esophageal reflux disease without esophagitis; K44.9 Diaphragmatic hernia without obstruction or gangrene; K58.9 Irritable bowel syndrome, unspecified; M19.90 Unspecified osteoarthritis, unspecified site; F41.9 Anxiety disorder, unspecified; F32.9 Major depressive disorder, single episode, unspecified; Z95.1 Presence of aortocoronary bypass graft; Z89.511 Acquired absence of right leg below knee; R09.02 Hypoxemia; E66.9 Obesity, unspecified; E11.65 Type 2 diabetes mellitus with hyperglycemia; Z79.4 Long term (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 of insulin; E11.22 Type 2 diabetes mellitus with diabetic chronic kidney disease; F17.200 Nicotine dependence, unspecified, uncomplicated; R79.1 Abnormal coagulation profile; N18.3 Chronic kidney disease, stage 3 (moderate); E11.43 Type 2 diabetes mellitus with diabetic autonomic (poly)neuropathy; K31.84 Gastroparesis
CPT/HCPCS: 36415; 36600; 71045; 80048; 80053; 80061; 81001; 82550; 82553; 82803; 82962; 83036; 83605; 83735; 83880; 84439; 84443; 84481; 84484; 85025; 85027; 85610; 85730; 87040; 93005; 93010; 99285; J0360; J1644; J1815; J1940; J2405; J3430; J3490

== ENCOUNTER 2019-07-01 19:51 | Inpatient (IN) | payer MEDICAID, MEDICARE ==
--- NOTE | 2019-07-01 20:21 | ER Document Report ---
ED Medical Screen (RME) - General Chief Complaint: Hand Burn Stated Complaint: HAND BURN Time Seen by Provider: 07/01/19 20:19 Primary Care Provider: THERESE NEUMANN DO [Primary Care Provider] - Follow up as needed Mode of Arrival: Wheelchair Information source: Patient Notes: 48-year-old female presented to ED for a very infected decaying index finger on the right hand. She got burned about 2 weeks ago and did not go to the doctor. She is a diabetic. We will get blood urine and a x-ray of the hand. Patient is alert oriented respirations regular nonlabored speaking in full sentences. Denies any fevers. I have greeted and performed a rapid initial assessment of this patient. A comprehensive ED assessment and evaluation of the patient, analysis of test results and completion of medical decision making process will be conducted by an additional ED providers. TRAVEL OUTSIDE OF THE [place] IN LAST 30 DAYS: No - Related Data Allergies/Adverse Reactions: amlodipine Allergy (Verified 07/01/19 20:17) isosorbide [From Imdur] Allergy (Verified 07/01/19 20:17) zolpidem [From Ambien] Allergy (Verified 07/01/19 20:17) Past Medical History - Past Medical History Cardiac Medical History: Reports: Hx Atrial Fibrillation, Hx Congestive Heart Failure, Hx Coronary Artery Disease, Hx DVT, Hx Heart Attack, Hx Hypertension, Hx Peripheral Vascular Disease Pulmonary Medical History: Reports: Hx Bronchitis, Hx COPD, Hx Pneumonia Neurological Medical History: Denies: Hx Migraine, Hx Seizures Endocrine Medical History: Reports: Hx Diabetes Mellitus Type 2. Denies: Hx Diabetes Mellitus Type 1, Hx Hyperthyroidism, Hx Hypothyroidism Renal/ Medical History: Reports: Hx Kidney Stones, Hx Renal Insufficiency. Denies: Hx Peritoneal Dialysis GI Medical History: Reports: Hx Gastroesophageal Reflux Disease, Hx Hiatal Hernia, Hx Irritable Bowel. Denies: Hx Cirrhosis, Hx Crohn's Disease, Hx H epatitis, Hx Ulcerative Colitis Musculoskeltal Medical History: Reports Hx Arthritis, Denies Hx Fibromyalgia, Denies Hx Gout, Reports Hx Musculoskeletal Deformity, Reports Hx Musculoskeletal Trauma Skin Medical History: Reports Hx Cellulitis, Denies Hx Eczema, Denies Hx Psoriasis Psychiatric Medical History: Reports: Hx Anxiety, Hx Depression Infectious Medical History: Denies: Hx Hepatitis Past Surgical History: Reports: Hx Abdominal Surgery, Hx Cardiac Surgery - CABG, Hx Section - x2, Hx Cholecystectomy, Hx Coronary Artery Bypass Graft - x3, Hx Orthopedic Surgery - There is a show mild what you have opacity or 2008-year- left knee/ r BKA, Hx Tubal Ligation, Other - Ventral hernia repair - Immunizations Hx Diphtheria, Pertussis, Tetanus Vaccination: No Physical Exam - Vital signs Vitals: Temp Pulse Resp BP Pulse Ox 98.0 F 78 16 173/45 H 93 07/01/19 19:56 07/01/19 19:56 07/01/19 19:56 07/01/19 19:56 07/01/19 19:56 Course - Vital Signs Vital signs: Temp Pulse Resp BP Pulse Ox 98.0 F 78 16 173/45 H 93 07/01/19 19:56 07/01/19 19:56 07/01/19 19:56 07/01/19 19:56 07/01/19 19:56 Doctor's Discharge - Discharge Referrals: THERESE NEUMANN, [Primary Care Provider] - Follow up as needed
[2019-07-01 20:48] LABS: ABSOLUTE BASOPHILS # (AUTO) 0.1 10^3/uL (0.0-0.2); ABSOLUTE EOSINOPHILS # (AUTO) 0.2 10^3/uL (0.0-0.6); ABSOLUTE MONOCYTES (AUTO) 0.4 10^3/uL (0.1-1.4); ABSOLUTE NEUT (AUTO) 4.2 10^3/uL (1.7-8.2); BASOPHILS % (AUTO) 0.8 % (0-2); EOSINOPHILS % (AUTO) 2.8 % (0-6); HEMATOCRIT 33.2 % (36.0-47.0); HEMOGLOBIN 11.1 g/dL (12.0-15.5); LYMPHOCYTES % (AUTO) 29.4 % (13-45); MEAN CORPUSCULAR HEMOGLOBIN 26.4 pg (27.0-33.4); MEAN CORPUSCULAR HGB CONC 33.4 g/dL (32.0-36.0); MEAN CORPUSCULAR VOLUME 79 fl (80-97); MONOCYTES % (AUTO) 5.7 % (3-13); PLATELET COUNT 267 10^3/uL (150-450); RED CELL DISTRIBUTION WIDTH 17.6 % (11.5-14.0); SEGMENTED NEUTROPHILS % (AUTO) 61.3 % (42-78); TOTAL CELLS COUNTED % (AUTO) 100 %; WHITE BLOOD COUNT 6.8 10^3/uL (4.0-10.5)
[2019-07-01 21:05] LABS: ALBUMIN 3.6 g/dL (3.5-5.0); ALKALINE PHOSPHATASE 59 U/L (38-126); ANION GAP 8 (5-19); ASPARTATE AMINO TRANSFERASE 15 U/L (14-36); BILIRUBIN,DIRECT 0.2 mg/dL (0.0-0.4); BILIRUBIN,TOTAL 0.4 mg/dL (0.2-1.3); BLOOD UREA NITROGEN 28 mg/dL (7-20); CALCIUM 9.3 mg/dL (8.4-10.2); CARBON DIOXIDE 28 mmol/L (22-30); CHLORIDE 101 mmol/L (98-107); GLUCOSE 300 mg/dL (75-110); POTASSIUM 5.3 mmol/L (3.6-5.0); TOTAL PROTEIN 7.1 g/dL (6.3-8.2)
--- NOTE | 2019-07-01 21:37 | RADIOLOGY REPORT (SQ) ---
EXAM DESCRIPTION: CLINICAL HISTORY: 48 years Female, Severe infection to the right index finger. Diabetic. COMPARISON: Right hand films from 06/17/2018. FINDINGS: Incidental chronic changes with extra ossification associated with the distal tuft of the thumb. This was present previously. The right index finger demonstrates possible mild soft tissue swelling. There is no suspicious bone or joint space abnormality. IMPRESSION: No acute bony findings in the right index finger.
[2019-07-02] MEDS ORDERED: CEFEPIME 2 GM/D5W RTU 2 GM/50 ML RTUPB IV ONE (00:24)
[2019-07-02] MEDS ORDERED: VANCOMYCIN HCL INJ 1000 MG VIAL IV ONE (00:24)
[2019-07-02] MEDS ORDERED: NORMAL SALINE 500 ML IV ONE (00:26)
[2019-07-02] MEDS ORDERED: NORMAL SALINE 1000 ML 1,000 ML IV PRN (00:26)
--- NOTE | 2019-07-02 00:27 | ER Document Report ---
ED Extremity Problem, Upper - General Chief Complaint: Abscess Stated Complaint: HAND BURN Time Seen by Provider: 07/01/19 20:19 Mode of Arrival: Wheelchair Notes: Patient is a 48 year old female with a history of insulin-dependent diabetes that comes emergency department for chief complaint of a burn to her right index finger and right thumb that happened 2 weeks ago on hot tater tots, she states that she is trying to keep them clean and she has been soaking them but especially the index finger has become worse with sloughing of the skin, spreading redness, swelling, and a ulcer that is formed over the pad of the finger. She denies fever/chills, nausea/vomiting. She reports her tetanus is up-to-date within 5 years. She denies any other injuries or complaints. Patient states that she ran out of her insulin and has not had it for 1 to 2 weeks. TRAVEL OUTSIDE OF THE [place] IN LAST 30 DAYS: No - Related Data Allergies/Adverse Reactions: amlodipine Allergy (Verified 07/01/19 20:17) isosorbide [From Imdur] Allergy (Verified 07/01/19 20:17) zolpidem [From Ambien] Allergy (Verified 07/01/19 20:17) Past Medical History - General Information source: Patient - Social History Smoking Status: Former Smoker Drug Abuse: None Lives with: Family Family History: CVA, DM, Hypertension Patient has suicidal ideation: No Patient has homicidal ideation: No - Past Medical History Cardiac Medical History: Reports: Hx Atrial Fibrillation, Hx Congestive Heart Failure, Hx Coronary Artery Disease, Hx DVT, Hx Heart Attack, Hx Hypertension, Hx Peripheral Vascular Disease Pulmonary Medical History: Reports: Hx Bronchitis, Hx COPD, Hx Pneumonia Neurological Medical History: Denies: Hx Migraine, Hx Seizures Endocrine Medical History: Reports: Hx Diabetes Mellitus Type 2. Denies: Hx Diabetes Mellitus Type 1, Hx Hyperthyroidism, Hx Hypothyroidism Renal/ Medical History: Reports: Hx Kidney Stones, Hx Renal Insufficiency. Denies: Hx Peritoneal Dialysis GI Medical History: Reports: Hx Gastroesophageal Reflux Disease, Hx Hiatal Hernia, Hx Irritable Bowel. Denies: Hx Cirrhosis, Hx Crohn's Disease, Hx Hepatitis, Hx Ulcerative Colitis Musculoskeletal Medical History: Reports Hx Arthritis, Denies Hx Fibromyalgia, Denies Hx Gout, Reports Hx Musculoskeletal Deformity, Reports Hx Musculoskeletal Trauma Skin Medical History: Reports Hx Cellulitis, Denies Hx Eczema, Denies Hx Psoriasis Psychiatric Medical History: Reports: Hx Anxiety, Hx Depression Infectious Medical History: Denies: Hx Hepatitis Past Surgical History: Reports: Hx Abdominal Surgery, Hx Cardiac Surgery - CABG, Hx Section - x2, Hx Cholecystectomy, Hx Coronary Artery Bypass Graft - x3, Hx Orthopedic Surgery - There is a show mild what you have opacity or 2008-year- left knee/ r BKA, Hx Tubal Ligation, Other - Ventral hernia repair - Immunizations Immunizations up to date: Yes Hx Diphtheria, Pertussis, Tetanus Vaccination: Yes Hx Pneumococcal Vaccination: 07/23/09 Review of Systems - Review of Systems Constitutional: No symptoms reported EENT: No symptoms reported Cardiovascular: No symptoms reported Respiratory: No symptoms reported Gastrointestinal: No symptoms reported Genitourinary: No symptoms reported Female Genitourinary: No symptoms reported Musculoskeletal: See HPI Skin: See HPI Hematologic/Lymphatic: No symptoms reported Neurological/Psychological: No symptoms reported Physical Exam - Vital signs Vitals: Temp Resp Pulse Ox 98.0 F 16 93 07/01/19 19:52 07/01/19 19:52 07/01/19 19:52 - Notes Notes: GENERAL: Alert, interacts well. No acute distress. HEAD: Normocephalic, atraumatic. EYES: Pupils equal, round, and reactive to light. Extraocular movements intact. ENT: Oral mucosa moist, tongue midline. Oropharynx unremarkable. Airway patent. LUNGS: Clear to auscultation bilaterally, no wheezes, rales, or rhonchi. No respiratory distress. HEART: Regular rate and rhythm. No murmur ABDOMEN: Soft, non-tender. Non-distended. EXTREMITIES: There is soft tissue swelling to the right thumb and the right index finger, there are ulcerated areas over the finger pads of both fingers, right index finger with skin sloughing up past the DIP and erythema and swelling up towards the PIP. Pain with palpation but no apparent dulled sensation. There is a healed burn over the right middle finger as well. Unremarkable otherwise. Patient also has a right BKA. BACK: no cervical, thoracic, lumbar midline tenderness. No saddle anesthesia, normal distal neurovascular exam. Moves all extremities in full range of motion. NEUROLOGICAL: Alert and oriented x3. Normal speech. Cranial nerves II through XII grossly intact. PSYCH: Normal affect, normal mood. SKIN: Warm, dry, normal turgor. No rashes or lesions noted. Course - Re-evaluation Re-evalutation: Patient is alert and well-appearing. However her hand examination is very concerning. There appears to be an infection of the thumb with cellulitis, the right index finger is much worse with sloughing of skin, swelling, spreading redness of the finger. No fever, no leukocytosis, x-ray does not show gas in the tissues. Started on antibiotics. Chemistry shows glucose of 300, patient is out of her insulin, however there is no acidosis. Discussed with Dr. Buckner. I called and spoke with general surgeon Dr. Salinas, he states he is uncomfortable performing surgery on the hand and he is concerned patient might need amputation therefore he recommends orthopedic consultation. I spoke with Dr. Villalpando, patient has an extensive medical history including uncontrolled diabetes, CABG, CHF, COPD, he recommends hospitalist admission and he will consult on the patient. I discussed with Dr. Boston, hospitalist, patient accepted to the medical floor. Patient states appreciation and agreement. - Vital Signs Vital signs: Temp Pulse Resp BP Pulse Ox 98.1 F 66 18 143/71 H 95 07/02/19 01:26 07/02/19 01:26 07/02/19 01:26 07/02/19 01:26 07/02/19 05:58 - Laboratory Result Diagrams: 07/01/19 20:33 07/01/19 20:33 Laboratory results interpreted by me: 07/01/19 07/01/19 07/02/19 20:33 20:33 01:45 Hgb 11.1 L Hct 33.2 L MCV 79 L MCH 26.4 L RDW 17.6 H Potassium 5.3 H BUN 28 H Est GFR (MDRD) Non-Af 52 L Glucose 300 H Urine Protein >=500 H Urine Glucose (UA) >=500 H Urine Blood SMALL H Discharge - Discharge Clinical Impression: Uncontrolled diabetes mellitus Qualifiers: Diabetes mellitus type: type 2 Glycemic state: with hyperglycemia Qualified Code(s): E11.65 - Type 2 diabetes mellitus with hyperglycemia Burn of finger Qualifiers: Encounter type: initial encounter Laterality: right Burn degree: partial thickness (2nd degree) Qualified Code(s): T23.221A - Burn of second degree of single right finger (nail) except thumb, initial encounter Cellulitis, finger Qualifiers: Laterality: right Qualified Code(s): L03.011 - Cellulitis of right finger Condition: Stable Disposition: ADMITTED INPATIENT Admitting Provider: Darvin (Hospitalist) Unit Admitted: Medical Floor
[2019-07-02 02:30] LABS: APPEARANCE,URINE CLEAR; BILIRUBIN,URINE NEGATIVE (NEGATIVE); COLOR,URINE YELLOW; GLUCOSE, URINE >=500 mg/dL (NEGATIVE); KETONES,URINE NEGATIVE (NEGATIVE); PROTEIN,URINE >=500 mg/dL (NEGATIVE); URINE SPECIFIC GRAVITY 1.023; UROBILINOGEN,URINE NEGATIVE mg/dL (<2.0)
[2019-07-02] MEDS ORDERED: PROMETHAZINE HCL INJ 25 MG/1 ML VIAL IV PRN (02:51)
[2019-07-02] MEDS ORDERED: MAGNESIUM HYDROXIDE SUSP 30 ML UDCUP PO PRN (02:51)
[2019-07-02] MEDS ORDERED: LEVALBUTEROL HCL NEB 0.63 MG/3 ML AMPUL NEB PRN (02:51)
[2019-07-02] MEDS ORDERED: MAG HYDROX/AL HYDROX/SIMETH SUSP 30 ML UDCUP PO PRN (02:51)
[2019-07-02] MEDS ORDERED: GLUCAGON,HUMAN RECOMB 1 MG INJ IM PRN (02:58)
[2019-07-02] MEDS ORDERED: DEXTROSE 40% GEL 15 GM TUBE PO PRN ×2 (02:58)
[2019-07-02] MEDS ORDERED: DEXTROSE 50%-WATER 25 GM/50 ML DISP.SYRIN IV PRN ×2 (02:58)
[2019-07-02] MEDS ORDERED: ACETAMINOPHEN 325 MG TABLET PO PRN (02:58)
[2019-07-02] MEDS ORDERED: MORPHINE SULFATE 10 MG/ML INJ IV PRN (02:58)
[2019-07-02] MEDS ORDERED: HYDRALAZINE HCL INJ/PF 20 MG/1 ML SDV IV PRN (02:58)
[2019-07-02] MEDS ORDERED: VANCOMYCIN HCL INJ 1000 MG VIAL IV SCH (03:00)
[2019-07-02] MEDS ORDERED: PIPERACILLIN/TAZOBACTAM 3.375 GM VIAL IV SCH (03:00)
[2019-07-02] MEDS ORDERED: PIPERACILLIN/TAZOBACTAM 3.375 GM VIAL IV PRN (03:23)
[2019-07-02] MEDS: PIPERACILLIN SODIUM/TAZOBACTAM 3.375 GM in NORMAL SALINE 100 ML IV SCH ×4 (04:25→20:07)
[2019-07-02] MEDS ORDERED: HEPARIN SOD (PORCINE) 5,000 UNIT/ML 1 ML VIAL SUBCUT SCH (06:00)
--- NOTE | 2019-07-02 06:11 | PDOC H&P ---
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 She admits burning her right middle and index fingers as well as her right thumb 2 weeks ago while eating hot tater tots at [facility]. Since that time she has been soaking and cleansing her fingers and thumb daily. Over that time the right thumb in the middle finger have improved, but despite treatment the skin of the right index finger has become red and swollen with increasing tenderness worsened by use an area of ulceration on the distal phalanx. She rates her pain as being moderate to severe. She denies other associated or accompanying signs and symptoms. She denies prior similar episodes. She admits that she is not been taking her insulin for the last 2 or more weeks. She denies identification of any additi onal aggravating or ameliorating factors for her right index finger burn. In the emergency room she was found to have an acute cellulitis of the right index finger. She was started on antibiotic therapy and admitted to the medical service at the request of Dr. Villalpando. Past Medical History Cardiac Medical History: Reports: Atrial Fibrillation, Congestive Heart Failure, Coronary Artery Disease, DVT, Myocardial Infarction, Hypertension, Peripheral Vascular Disease Pulmonary Medical History: Reports: Bronchitis, Chronic Obstructive Pulmonary Disease (COPD), Pneumonia EENT Medical History: Denies: Cataracts, Ears - Hearing aids Neurological Medical History: Denies: Hemorrhagic CVA, Ischemic CVA, Migraine, Seizures Endocrine Medical History: Reports: Diabetes Mellitus Type 2, Obesity Denies: Diabetes Mellitus Type 1, Hyperthyroidism, Hypothyroidism Renal/ Medical History: Denies: Chronic Kidney Disease, Nephrolithiasis Malignancy Medical History: Reports: None GI Medical History: Reports: Gastroesophageal Reflux Disease, Hiatal Hernia Denies: Cirrhosis, Crohn's Disease, Hepatitis, Ulcerative Colitis Musculoskeltal Medical History: Reports: Arthritis Denies: Fibromyalgia, Gout Skin Medical History: Denies: Eczema, Psoriasis Psychiatric Medical History: Reports: Depression Denies: Alcohol Dependency, Substance Abuse, Tobacco Dependency Traumatic Medical History: Reports: None Hematology: Reports: Anemia Denies: Bleeding Tendencies Infectious Medical History: Reports: None Past Surgical History Past Surgical History: Reports: Amputation - Right BKA, Cardiac Catheterization, Section - x2, Cholecystectomy, Coronary Artery Bypass Graft - x3, Herniorrhaphy - Ventral hernia, Orthopedic Surgery - Knee surgery, Tubal Ligation, Vascular Surgery - Left iliofemoral bypass, Other - Peripheral nerve stimulator implantation Social History Information Source: Patient Lives with: Spouse/Significant other Smoking Status: Former Smoker Electronic Cigarette use?: No Frequency of Alcohol Use: Rare Hx Recreational Drug Use: No Drugs: None Hx Prescription Drug Abuse: No - Advance Directive Resuscitation Status: Full Code Surrogate healthcare decision maker:: Zay Decker Family History Family History: CAD, CVA, DM, Hypertension, Malignancy, Other - Kidney disease Parental Family History Reviewed: Yes Children Family History Reviewed: No Sibling(s) Family History Reviewed.: Yes Medication/Allergy Home Medications: Acetaminophen [Tylenol Extra Strength 500 mg Tablet] 1,000 mg PO QAM 07/02/19 Acetaminophen/Diphenhydramine [Tylenol Pm Ex-Strength Caplet] 1 each PO QHS 07/02/19 Aspirin [Adult Low Dose Aspirin EC] 81 mg PO DAILY 07/02/19 Atorvastatin Calcium [Lipitor 80 mg Tablet] 80 mg PO QHS 07/02/19 Buspirone HCl [Buspar 15 mg Tablet] 7.5 mg PO Q12 07/02/19 Carvedilol [Coreg 3.125 mg Tablet] 3.125 mg PO Q12 07/02/19 Citalopram Hydrobromide [Celexa 40 mg Tablet] 40 mg PO DAILY 07/02/19 Fenofibrate Nanocrystallized [Tricor 145 mg Tablet] 145 mg PO DAILY 07/02/19 Gabapentin [Neurontin] 600 mg PO QID 07/02/19 Lisinopril [Prinivil 5 mg Tablet] 5 mg PO DAILY 07/02/19 Metformin HCl [Glucophage 500 mg Tablet] 500 mg PO QAM 07/02/19 Metformin HCl [Glucophage] 1,000 mg PO QHS 07/02/19 Metoclopramide HCl [Reglan 10 mg Tablet] 10 mg PO ACHS 07/02/19 NPH, Human Insulin Isophane [Humulin N (NPH) Insulin 100 Unit/1 ml 3 ml] 50 unit INJ QHS 07/02/19 Ondansetron HCl [Zofran 4 mg Tablet] 4 mg PO PRN PRN 07/02/19 Oxycodone HCl [Oxy-Ir 5 mg Tablet] 10 mg PO Q8HP PRN 07/02/19 Pantoprazole Sodium [Protonix [address] Tablet] 40 mg PO Q6AM 07/02/19 Trazodone HCl [Desyrel 50 mg Tablet] 50 mg PO QHS 07/02/19 Warfarin Sodium [Coumadin 3 mg Tablet] 3 mg PO DAILY 07/02/19 Allergies/Adverse Reactions: amlodipine Allergy (Verified 07/01/19 20:17) isosorbide [From Imdur] Allergy (Verified 07/01/19 20:17) zolpidem [From Ambien] Allergy (Verified 07/01/19 20:17) Review of Systems Constitutional: ABSENT: chills, fever(s) Eyes: ABSENT: visual disturbances, other - Eye pain Ears: ABSENT: hearing changes, other - Ear pain Nose, Mouth, and Throat: ABSENT: headache(s), mouth pain, sore throat Cardiovascular: ABSENT: chest pain, palpitations Respiratory: ABSENT: cough, dyspnea Gastrointestinal: ABSENT: abdominal pain, constipation, diarrhea, nausea, vomiting Genitourinary: ABSENT: dysuria, hematuria Musculoskeletal: ABSENT: back pain, joint swelling, muscle weakness Integumentary: PRESENT: erythema - Erythema and swelling of the right index finger. ABSENT: pruritus, rash Neurological: ABSENT: confusion, convulsions, focal weakness, memory loss, syncope Psychiatric: ABSENT: anxiety, depression Endocrine: ABSENT: cold intolerance, heat intolerance Hematologic/Lymphatic: ABSENT: easy bleeding, easy bruising Allergic/Immunologic: ABSENT: seasonal rhinorrhea Physical Exam Vital Signs: Temp Pulse Resp BP Pulse Ox 98.1 F 66 18 143/71 H 93 07/02/19 01:26 07/02/19 01:26 07/02/19 01:26 07/02/19 01:26 07/02/19 01:26 Intake & Output 06/30/19 07/01/19 07/02/19 23:59 23:59 23:59 Weight 79.379 kg General appearance: PRESENT: no acute distress, cooperative Head exam: PRESENT: atraumatic, normocephalic Eye exam: PRESENT: conjunctiva pink. ABSENT: conjunctival injection, scleral icterus Ear exam: PRESENT: normal external ear exam. ABSENT: bleeding, drainage Mouth exam: PRESENT: dry mucosa, neck supple Neck exam: ABSENT: thyromegaly, tracheal deviation Respiratory exam: PRESENT: clear to auscultation amaya, symmetrical, unlabored Cardiovascular exam: PRESENT: RRR. ABSENT: clicks, gallop, rubs Pulses: PRESENT: normal carotid pulses, normal radial pulses Vascular exam: PRESENT: normal capillary refill. ABSENT: pallor GI/Abdominal exam: PRESENT: normal bowel sounds, soft Rectal exam: PRESENT: deferred Extremities exam: PRESENT: tenderness - Right index finger middle and distal phalanges, other - Right BKA noted. ABSENT: joint swelling Musculoskeletal exam: PRESENT: other - Right BKA noted. ABSENT: deformity, d islocation Neurological exam: PRESENT: alert, oriented to person, oriented to place, oriented to time, oriented to situation, CN II-XII grossly intact Psychiatric exam: PRESENT: appropriate affect, normal mood Skin exam: PRESENT: dry, erythema - Erythema and edema of the right index finger with superficial ulceration of the finger pad of the distal phalanx, warm. ABSENT: jaundice, urticaria Results Laboratory Results: 07/01/19 20:33 07/01/19 20:33 07/01/19 07/01/19 07/01/19 20:33 20:33 20:33 WBC 6.8 RBC 4.20 Hgb 11.1 L Hct 33.2 L MCV 79 L MCH 26.4 L MCHC 33.4 RDW 17.6 H Plt Count 267 Seg Neutrophils % 61.3 Sodium 137.3 Potassium 5.3 H Chloride 101 Carbon Dioxide 28 Anion Gap 8 BUN 28 H Creatinine 1.12 Est GFR ( Amer) > 60 Glucose 300 H Lactic Acid Calcium 9.3 Total Bilirubin 0.4 AST 15 Alkaline Phosphatase 59 Total Protein 7.1 Albumin 3.6 Serum HCG, Qual NEGATIVE 07/01/19 22:55 WBC RBC Hgb Hct MCV MCH MCHC RDW Plt Count Seg Neutrophils % Sodium Potassium Chloride Carbon Dioxide Anion Gap BUN Creatinine Est GFR ( Amer) Glucose Lactic Acid 1.1 Calcium Total Bilirubin AST Alkaline Phosphatase Total Protein Albumin Serum HCG, Qual Impressions: Finger X-Ray 07/01/19 20:23 IMPRESSION: No acute bony findings in the right index finger. Assessment and Plan - Diagnosis (1) Cellulitis of right index finger Is this a current diagnosis for this admission?: Yes (2) Hyperkalemia Is this a current diagnosis for this admission?: Yes (3) Diabetes mellitus type 2 in obese Is this a current diagnosis for this admission?: Yes (4) Peripheral vascular disease in diabetes mellitus Is this a current diagnosis for this admission?: Yes (5) Stage 3 chronic kidney disease Is this a current diagnosis for this admission?: Yes (6) CAD (coronary artery disease), [place] coronary artery Qualifiers: [place] vs. transplanted heart: [place] heart Associated angina: without angina Qualified Code(s): I25.10 - Atherosclerotic heart disease of [place] coronary artery without angina pectoris Is this a current diagnosis for this admission?: Yes (7) Chronic diastolic heart failure Is this a current diagnosis for this admission?: Yes (8) Medical non-compliance Is this a current diagnosis for this admission?: Yes - Plan Summary Summary: Patient will be admitted a to the medical floor and receive usual supportive and symptomatic cares. She will be treated with IV antibiotics utilizing Zosyn and vancomycin. Surgical consultation with Dr. Villalpando will be obtained. Her potassium be corrected with IV fluids and control of her blood sugar. She will receive morphine 2 to 4 mg IV every 2 hours on an as-needed basis for pain. Before meals and at bedtime Accu-Cheks will be obtained with sliding scale insulin for treatment of hyperglycemia and and hypoglycemic protocol in place. Patient be continued on her usual medications were possible. - Time Time Spent with patient: 15-24 minutes Medications reviewed and adjusted accordingly: Yes Anticipated discharge: Home with Homehealth - Inpatient Certification Based on my medical assessment, after consideration of the patient's comorbidities, presenting symptoms, or acuity I expect that the services needed warrant INPATIENT care.: Yes I certify that my determination is in accordance with my understanding of Medicare's requirements for reasonable and necessary INPATIENT services [42 CFR 412.3e].: Yes Medical Necessity: Significant Comorbidiites Make Outpatient Treatment Too Risky, Need Close Monitoring Due to Risk of Patient Decompensation, Need For IV Fluids, Need for Pain Control, Need for IV Antibiotics, Need for Surgery, Risk of Complication if Not Cared For in Hospital
[2019-07-02] MEDS: MORPHINE SULFATE 10 MG/ML INJ IV PRN ×3 (06:40→22:08)
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
[2019-07-02] MEDS: METFORMIN HCL 500 MG TABLET PO SCH ×2 (07:49→17:05)
[2019-07-02] MEDS: INSULIN REG, HUMAN 100 UNIT/ML 3 ML VIAL (PYX) SUBCUT SCH ×4 (07:49→23:07)
[2019-07-02] MEDS: METOCLOPRAMIDE HCL 10 MG TABLET PO SCH ×4 (07:49→22:08)
[2019-07-02] MEDS: CITALOPRAM HYDROBROMIDE 20 MG TABLET PO SCH (09:41)
[2019-07-02] MEDS: BUSPIRONE HCL 10 MG TABLET PO SCH ×2 (09:41→22:08)
[2019-07-02] MEDS: LISINOPRIL 5 MG TABLET PO SCH (09:41)
[2019-07-02] MEDS: DOCUSATE SODIUM 100 MG CAPSULE PO SCH ×2 (09:42→17:09)
[2019-07-02] MEDS: CARVEDILOL 3.125 MG TABLET PO SCH ×2 (09:42→22:07)
[2019-07-02] MEDS: FAMOTIDINE 20 MG TABLET PO SCH ×2 (09:42→22:08)
--- NOTE | 2019-07-02 10:26 | PDOC PROGRESS REPORT ---
Subjective Progress Note for:: 07/02/19 Subjective:: Patient is resting in bed. She appears comfortable. Because of her diabetic neuropathy she has no sensation in her fingers or hands. She does admit noncompliance with her medications due to financial constraints. Reason For Visit: CELLULITIS RIGHT INDEX FINGER Physical Exam Vital Signs: Temp Pulse Resp BP Pulse Ox 98.1 F 71 16 140/73 H 95 07/02/19 07:23 07/02/19 07:23 07/02/19 07:23 07/02/19 07:23 07/02/19 07:23 Intake & Output 07/01/19 07/02/19 07/03/19 06:59 06:59 06:59 Intake Total 550 100 Balance 550 100 Weight 79.379 kg 79.9 kg General appearance: PRESENT: no acute distress, cooperative, well-developed Head exam: PRESENT: atraumatic, normocephalic Ear exam: PRESENT: normal external ear exam. ABSENT: bleeding, drainage Mouth exam: PRESENT: moist, tongue midline Respiratory exam: PRESENT: clear to auscultation amaya, symmetrical, unlabored. ABSENT: prolonged expiratory phas, rales, rhonchi, tachypnea, wheezes Cardiovascular exam: PRESENT: RRR, +S1, +S2, systolic murmur - 2/6 Pulses: PRESENT: other - Very diminished radial pulses. Difficulty palpating dorsalis pedis pulses GI/Abdominal exam: PRESENT: normal bowel sounds, soft. ABSENT: distended, tenderness Rectal exam: PRESENT: deferred Extremities exam: PRESENT: other - Right index finger with brown eschar covering the entirety of the finger tip to the distal interphalangeal joint. Small droplets of fat and drainage breaking through. Erythema proximal to the eschar. There is a circular scab on the tip of the finger likely reflecting a diabetic or vascular ulcer. There is a dark brown spot on the tip of the thumb. There is another scabbed area on I believe the fourth finger.. ABSENT: pedal edema Musculoskeletal exam: PRESENT: ambulatory. ABSENT: normal inspection - Incision medial left thigh Neurological exam: PRESENT: alert, awake, oriented to person, oriented to place, oriented to time, oriented to situation, motor sensory deficit - Also feeling on both hands feet. Psychiatric exam: PRESENT: flat affect. ABSENT: agitated, anxious Focused psych exam: ABSENT: delusional, restlessness Skin exam: PRESENT: other - As above Results Laboratory Results: 07/01/19 20:33 07/01/19 20:33 07/01/19 07/01/19 07/01/19 20:33 20:33 20:33 WBC 6.8 RBC 4.20 Hgb 11.1 L Hct 33.2 L MCV 79 L MCH 26.4 L MCHC 33.4 RDW 17.6 H Plt Count 267 Seg Neutrophils % 61.3 Sodium 137.3 Potassium 5.3 H Chloride 101 Carbon Dioxide 28 Anion Gap 8 BUN 28 H Creatinine 1.12 Est GFR ( Amer) > 60 Glucose 300 H Lactic Acid Calcium 9.3 Total Bilirubin 0.4 AST 15 Alkaline Phosphatase 59 Total Protein 7.1 Albumin 3.6 Serum HCG, Qual NEGATIVE Urine Color Urine Appearance Urine pH Ur Specific [place] Urine Protein Urine Glucose (UA) Urine Ketones Urine Blood Urine RBC (Auto) 07/01/19 07/02/19 22:55 01:45 WBC RBC Hgb Hct MCV MCH MCHC RDW Plt Count Seg Neutrophils % Sodium Potassium Chloride Carbon Dioxide Anion Gap BUN Creatinine Est GFR ( Amer) Glucose Lactic Acid 1.1 Calcium Total Bilirubin AST Alkaline Phosphatase Total Protein Albumin Serum HCG, Qual Urine Color YELLOW Urine Appearance CLEAR Urine pH 5.0 Ur Specific [place] 1.023 Urine Protein >=500 H Urine Glucose (UA) >=500 H Urine Ketones NEGATIVE Urine Blood SMALL H Urine RBC (Auto) 8 Impressions: Finger X-Ray 07/01/19 20:23 IMPRESSION: No acute bony findings in the right index finger. Assessment and Plan - Diagnosis (1) Neuropathic ulcer Qualifiers: Non-pressure ulcer stage: unspecified non-pressure ulcer stage Qualified Code(s): L98.499 - Non-pressure chronic ulcer of skin of other sites with unspecified severity Is this a current diagnosis for this admission?: Yes Plan: 07/02/2019-based on the patient's comorbidities and presentation of the finger it is my opinion that this initiated as a diabetic ulcer most likely related to neuropathy but possibly with a vascular component. An eschar has now formed. This should not be surgically removed but we will apply Betadine to dry the eschar and it should begin to contract and peel off the fingertip. There are small droplets of discharge breaking through the eschar. She is on dual antibiotic therapy for this. I appreciate the wound care center's assistance in treatment suggestions and arranging for follow-up care at the wound care center. Continue gabapentin for the diabetic neuropathy. (2) Cellulitis of right index finger Is this a current diagnosis for this admission?: Yes Plan: 07/02/2019-the erythema, small drops of discharge and swelling of the finger certainly suggest infection. We will continue the dual IV antibiotic therapy at this time. More common infection such as staph and strep are most likely involved. It is less likely to be MRSA or gram-negative bacilli. (3) Diabetes mellitus type 2 in obese Is this a current diagnosis for this admission?: Yes Plan: 07/02/2019-very poorly controlled. The patient reports noncompliance due to the inability to afford medications. I am going to change her to Humulin 70/30 in an effort to find an affordable but effective regimen. She will continue metformin at the increased dose of 1 g twice daily. Continue Accu-Cheks and sliding scale coverage as well as diabetic diet. (4) Peripheral vascular disease in diabetes mellitus Is this a current diagnosis for this admission?: Yes Plan: 07/02/2019-continue statin and aspirin therapy. Monitor for ischemia. (5) Depression Qualifiers: Depression Type: unspecified Qualified Code(s): F32.9 - Major depressive disorder, single episode, unspecified Is this a current diagnosis for this admission?: Yes Plan: 07/02/2019-continue current medication regimen (6) Hypertension Qualifiers: Hypertension type: essential hypertension Qualified Code(s): I10 - Essential (primary) hypertension Is this a current diagnosis for this admission?: Yes Plan: 07/02/2019-continue current regimen and monitor vital signs. - Plan Summary Summary: Patient will be admitted a to the medical floor and receive usual supportive and symptomatic cares. She will be treated with IV antibiotics utilizing Zosyn and vancomycin. Surgical consultation with Dr. Villalpando will be obtained. Her potassium be corrected with IV fluids and control of her blood sugar. She will receive morphine 2 to 4 mg IV every 2 hours on an as-needed basis for pain. Before meals and at bedtime Accu-Cheks will be obtained with sliding scale insulin for treatment of hyperglycemia and and hypoglycemic protocol in place. Patient be continued on her usual medications were possible. - Time Time Spent with patient: 25-34 minutes Medications reviewed and adjusted accordingly: Yes Anticipated discharge: Home with Homehealth Within: within 48 hours
[2019-07-02 11:24] LABS: ANION GAP 9 (5-19); BLOOD UREA NITROGEN 24 mg/dL (7-20); CARBON DIOXIDE 26 mmol/L (22-30); CHLORIDE 102 mmol/L (98-107); GLUCOSE 275 mg/dL (75-110)
[2019-07-02 11:33] LABS: POTASSIUM 4.3 mmol/L (3.6-5.0)
[2019-07-02] MEDS ORDERED: GABAPENTIN 300 MG CAPSULE PO SCH (14:00)
[2019-07-02] MEDS: HUM INSULIN NPH/REG INSULIN HM 100 UNIT/1 ML 3 ML SUBCUT SCH (17:03)
[2019-07-02] MEDS: RIVAROXABAN 10 MG TABLET PO SCH (17:05)
[2019-07-02] MEDS: NORMAL SALINE 1000 ML 1,000 ML IV PRN (20:06)
[2019-07-02] MEDS ORDERED: (PENDING PHARMACY ID) (Ondansetron Hcl [Zofran 4 Mg Tablet] 4 MG) PO PRN (20:18)
[2019-07-02] MEDS ORDERED: VANCOMYCIN HCL 1,500 MG in DEXTROSE 5%-WATER 250 ML IV SCH (22:00)
[2019-07-02] MEDS ORDERED: METOCLOPRAMIDE HCL 10 MG TABLET PO SCH (22:00)
[2019-07-02] MEDS ORDERED: (PENDING PHARMACY ID) (Buspirone Hcl [Buspar 15 Mg Tablet] 7.5 MG) PO SCH (22:00)
[2019-07-02] MEDS ORDERED: INSULIN GLARGINE,HUM.REC.ANLOG 1,000 UNIT/10 ML VIAL SUBCUT SCH (22:00)
[2019-07-02] MEDS: TRAZODONE HCL 50 MG TABLET PO SCH (22:07)
[2019-07-02] MEDS: ATORVASTATIN CALCIUM 80 MG TABLET PO SCH (22:07)
[2019-07-02] MEDS ORDERED: BUSPIRONE HCL 10 MG TABLET PO ONE (23:15)
[2019-07-03] MEDS ORDERED: GABAPENTIN 300 MG CAPSULE PO SCH
[2019-07-03] MEDS: PIPERACILLIN SODIUM/TAZOBACTAM 3.375 GM in NORMAL SALINE 100 ML IV SCH ×4 (02:53→22:05)
[2019-07-03] MEDS: MORPHINE SULFATE 10 MG/ML INJ IV PRN ×3 (03:00→22:36)
[2019-07-03] MEDS: PANTOPRAZOLE SODIUM 40 MG TABLET.DR PO SCH (06:13)
[2019-07-03] MEDS: NORMAL SALINE 1000 ML 1,000 ML IV PRN ×2 (06:35→20:06)
[2019-07-03 06:37] LABS: HEMATOCRIT 30.1 % (36.0-47.0); HEMOGLOBIN 10.1 g/dL (12.0-15.5); MEAN CORPUSCULAR HEMOGLOBIN 26.3 pg (27.0-33.4); MEAN CORPUSCULAR HGB CONC 33.5 g/dL (32.0-36.0); MEAN CORPUSCULAR VOLUME 79 fl (80-97); PLATELET COUNT 252 10^3/uL (150-450); RED BLOOD COUNT 3.84 10^6/uL (3.72-5.28); RED CELL DISTRIBUTION WIDTH 18.1 % (11.5-14.0); WHITE BLOOD COUNT 6.9 10^3/uL (4.0-10.5)
--- NOTE | 2019-07-03 06:51 | PDOC PROGRESS REPORT ---
Subjective Progress Note for:: 07/03/19 Reason For Visit: CELLULITIS RIGHT INDEX FINGER 48-year-old diabetic with peripheral neuropathy and a thermal injury to the index finger and thumb of the right hand Physical Exam Vital Signs: Temp Pulse Resp BP Pulse Ox 36.5 C 81 18 151/70 H 94 07/03/19 04:38 07/03/19 04:38 07/03/19 04:38 07/03/19 04:38 07/03/19 04:38 Intake & Output 07/01/19 07/02/19 07/03/19 06:59 06:59 06:59 Intake Total 550 1750 Output Total 750 Balance 550 1000 Weight 79.379 kg 79.9 kg General appearance: PRESENT: no acute distress Musculoskeletal exam: PRESENT: other - Unchanged from yesterday Results Laboratory Results: 07/03/19 06:07 07/02/19 07/03/19 10:33 06:07 WBC 6.9 RBC 3.84 Hgb 10.1 L Hct 30.1 L MCV 79 L MCH 26.3 L MCHC 33.5 RDW 18.1 H Plt Count 252 Sodium 136.5 L Potassium 4.3 D Chloride 102 Carbon Dioxide 26 Anion Gap 9 BUN 24 H Creatinine 1.02 Est GFR ( Amer) > 60 Glucose 275 H Calcium 9.0 Impressions: Finger X-Ray 07/01/19 20:23 IMPRESSION: No acute bony findings in the right index finger. Assessment & Plan - Diagnosis (1) Burn of finger Qualifiers: Encounter type: initial encounter Laterality: right Burn degree: partial thickness (2nd degree) Qualified Code(s): T23.221A - Burn of second degree of single right finger (nail) except thumb, initial encounter Is this a current diagnosis for this admission?: Yes Plan: Continue current care - Time Time Spent with patient: Less than 15 minutes Anticipated discharge: Home
[2019-07-03 07:00] LABS: ANION GAP 9 (5-19); BLOOD UREA NITROGEN 19 mg/dL (7-20); CALCIUM 8.8 mg/dL (8.4-10.2); CARBON DIOXIDE 27 mmol/L (22-30); CHLORIDE 104 mmol/L (98-107); GLUCOSE 167 mg/dL (75-110); POTASSIUM 4.4 mmol/L (3.6-5.0)
[2019-07-03] MEDS ORDERED: (PENDING PHARMACY ID) (Acetaminophen [Tylenol Extra Strength 500 Mg Tablet] 1,000 MG) PO SCH (08:00)
[2019-07-03] MEDS: ACETAMINOPHEN 325 MG TABLET PO SCH (08:47)
[2019-07-03] MEDS: METFORMIN HCL 500 MG TABLET PO SCH ×2 (08:47→16:43)
[2019-07-03] MEDS: GABAPENTIN 300 MG CAPSULE PO SCH ×3 (08:48→22:07)
[2019-07-03] MEDS: INSULIN REG, HUMAN 100 UNIT/ML 3 ML VIAL (PYX) SUBCUT SCH ×4 (08:49→22:35)
[2019-07-03] MEDS: HUM INSULIN NPH/REG INSULIN HM 100 UNIT/1 ML 3 ML SUBCUT SCH ×2 (08:49→16:43)
[2019-07-03] MEDS ORDERED: (PENDING PHARMACY ID) (Citalopram Hydrobromide [Celexa 40 Mg Tablet] 40 MG) PO SCH (10:00)
[2019-07-03] MEDS ORDERED: (PENDING PHARMACY ID) (Warfarin Sodium 3 MG) PO SCH (10:00)
[2019-07-03] MEDS ORDERED: CITALOPRAM HYDROBROMIDE 20 MG TABLET PO SCH (10:00)
[2019-07-03] MEDS: METOCLOPRAMIDE HCL 10 MG TABLET PO SCH ×4 (10:34→22:06)
[2019-07-03] MEDS: CITALOPRAM HYDROBROMIDE 20 MG TABLET PO SCH (11:41)
[2019-07-03] MEDS: BUSPIRONE HCL 10 MG TABLET PO SCH ×2 (11:42→22:06)
[2019-07-03] MEDS: ASPIRIN 81 MG TABLET, ENT COATED PO SCH (11:42)
[2019-07-03] MEDS: FAMOTIDINE 20 MG TABLET PO SCH ×2 (11:42→22:06)
[2019-07-03] MEDS: DOCUSATE SODIUM 100 MG CAPSULE PO SCH ×2 (11:43→18:02)
[2019-07-03] MEDS: FENOFIBRATE NANOCRYSTALLIZED 145 MG TABLET PO SCH (11:44)
[2019-07-03] MEDS: CARVEDILOL 3.125 MG TABLET PO SCH ×2 (11:50→22:28)
[2019-07-03] MEDS: LISINOPRIL 5 MG TABLET PO SCH (11:51)
[2019-07-03] MEDS: RIVAROXABAN 10 MG TABLET PO SCH (16:43)
[2019-07-03 20:00] LABS: VANCOMYCIN,TROUGH 13.8 ug/mL (5.0-20.0)
--- NOTE | 2019-07-03 21:38 | PDOC PROGRESS REPORT ---
Subjective Progress Note for:: 07/03/19 Subjective:: The patient reports some bloody discharge from under the eschar. No increase in pain. Tolerating the Betadine and Kerlix wrap. Reason For Visit: CELLULITIS RIGHT INDEX FINGER Physical Exam Vital Signs: Temp Pulse Resp BP Pulse Ox 98.8 F 82 18 139/74 H 95 07/03/19 19:38 07/03/19 19:38 07/03/19 19:38 07/03/19 19:38 07/03/19 19:38 Intake & Output 07/02/19 07/03/19 07/04/19 06:59 06:59 06:59 Intake Total 550 1750 100 Output Total 750 Balance 550 1000 100 Weight 79.379 kg 81 kg General appearance: PRESENT: no acute distress, cooperative, well-developed Head exam: PRESENT: atraumatic, normocephalic Mouth exam: PRESENT: moist, tongue midline Respiratory exam: PRESENT: clear to auscultation amaya, symmetrical, unlabored. ABSENT: accessory muscle use, rales, rhonchi, tachypnea, wheezes Cardiovascular exam: PRESENT: RRR, +S1, +S2 GI/Abdominal exam: PRESENT: normal bowel sounds, soft. ABSENT: distended, guarding, tenderness Rectal exam: PRESENT: deferred Gentrourinary exam: ABSENT: indwelling catheter Extremities exam: PRESENT: full ROM, other - Right index finger with dressing. Right thumb with dressing. Ulcer on the distal interphalangeal joint with no significant erythema or drainage.. ABSENT: pedal edema Musculoskeletal exam: PRESENT: ambulatory, normal inspection Neurological exam: PRESENT: alert, awake, oriented to person, oriented to place, oriented to time, oriented to situation, CN II-XII grossly intact Psychiatric exam: PRESENT: appropriate affect. ABSENT: agitated, anxious Focused psych exam: ABSENT: delusional, restlessness Skin exam: PRESENT: other - Lesions as described above Results Laboratory Results: 07/03/19 06:07 07/03/19 06:07 07/03/19 07/03/19 06:07 06:07 WBC 6.9 RBC 3.84 Hgb 10.1 L Hct 30.1 L MCV 79 L MCH 26.3 L MCHC 33.5 RDW 18.1 H Plt Count 252 Sodium 139.8 Potassium 4.4 Chloride 104 Carbon Dioxide 27 Anion Gap 9 BUN 19 Creatinine 1.57 H Est GFR ( Amer) 42 L Glucose 167 H Calcium 8.8 Magnesium 1.8 Impressions: Finger X-Ray 07/01/19 20:23 IMPRESSION: No acute bony findings in the right index finger. Assessment and Plan - Diagnosis (1) Neuropathic ulcer Qualifiers: Non-pressure ulcer stage: unspecified non-pressure ulcer stage Qualified Code(s): L98.499 - Non-pressure chronic ulcer of skin of other sites with unspecified severity Is this a current diagnosis for this admission?: Yes Plan: 07/02/2019-based on the patient's comorbidities and presentation of the finger it is my opinion that this initiated as a diabetic ulcer most likely related to neuropathy but possibly with a vascular component. An eschar has now formed. This should not be surgically removed but we will apply Betadine to dry the eschar and it should begin to contract and peel off the fingertip. There are small droplets of discharge breaking through the eschar. She is on dual antibiotic therapy for this. I appreciate the wound care center's assistance in treatment suggestions and arranging for follow-up care at the wound care center. Continue gabapentin for the diabetic neuropathy. 07/03/2019-Betadine applications as noted above. Some drainage noted from under the eschar on the right index finger. The patient will follow-up at the wound care center. (2) Cellulitis of right index finger Is this a current diagnosis for this admission?: Yes Plan: 07/02/2019-the erythema, small drops of discharge and swelling of the finger certainly suggest infection. We will continue the dual IV antibiotic therapy at this time. More common infection such as staph and strep are most likely involved. It is less likely to be MRSA or gram-negative bacilli. 07/03/2019-we will continue IV antibiotic therapy. Anticipated discharge tomorrow and will convert to oral antibiotics. (3) Diabetes mellitus type 2 in obese Is this a current diagnosis for this admission?: Yes Plan: 07/02/2019-very poorly controlled. The patient reports noncompliance due to the inability to afford medications. I am going to change her to Humulin 70/30 in an effort to find an affordable but effective regimen. She will continue metformin at the increased dose of 1 g twice daily. Continue Accu-Cheks and sliding scale coverage as well as diabetic diet. [id number] are improving. Continue current regimen. (4) Peripheral vascular disease in diabetes mellitus Is this a current diagnosis for this admission?: Yes Plan: 07/02/2019-continue statin and aspirin therapy. Monitor for ischemia. 07/03/2019-as above (5) Depression Qualifiers: Depression Type: unspecified Qualified Code(s): F32.9 - Major depressive disorder, single episode, unspecified Is this a current diagnosis for this admission?: Yes Plan: 07/02/2019-continue current medication regimen 07/03/2019-no change in therapy (6) Hypertension Qualifiers: Hypertension type: essential hypertension Qualified Code(s): I10 - Essentia l (primary) hypertension Is this a current diagnosis for this admission?: Yes Plan: 07/02/2019-continue current regimen and monitor vital signs. 07/03/2019-reasonable blood pressure control. Not quite at goal. May need to adjust medications. (7) DANNI (acute kidney injury) Is this a current diagnosis for this admission?: Yes Plan: 07/03/2019-serum creatinine is now abnormally elevated. I will increase IV fluids and I have encouraged patient to drink more liquids. It is likely related to decreased fluid intake more so than infection. The patient is on vancomycin and so I will check a vancomycin level to ensure that it is not secondary to the medication. - Plan Summary Summary: Patient will be admitted a to the medical floor and receive usual supportive and symptomatic cares. She will be treated with IV antibiotics utilizing Zosyn and vancomycin. Surgical consultation with Dr. Villalpando will be obtained. Her potassium be corrected with IV fluids and control of her blood sugar. She will receive morphine 2 to 4 mg IV every 2 hours on an as-needed basis for pain. Before meals and at bedtime Accu-Cheks will be obtained with sliding scale insulin for treatment of hyperglycemia and and hypoglycemic protocol in place. Patient be continued on her usual medications were possible. - Time Time Spent with patient: 15-24 minutes Medications reviewed and adjusted accordingly: Yes Anticipated discharge: Home Within: within 48 hours - Inpatient Certification Based on my medical assessment, after consideration of the patient's comorbidities, presenting symptoms, or acuity I expect that the services needed warrant INPATIENT care.: Yes I certify that my determination is in accordance with my understanding of Medicare's requirements for reasonable and necessary INPATIENT services [42 CFR 412.3e].: Yes Medical Necessity: Need For IV Fluids, Need for IV Antibiotics
[2019-07-03] MEDS ORDERED: VANCOMYCIN HCL 1,000 MG in DEXTROSE 5%-WATER 250 ML IV SCH (22:00)
[2019-07-03] MEDS: ATORVASTATIN CALCIUM 80 MG TABLET PO SCH (22:06)
[2019-07-03] MEDS: TRAZODONE HCL 50 MG TABLET PO SCH (22:06)
[2019-07-04] MEDS: GABAPENTIN 300 MG CAPSULE PO SCH ×2 (04:12→08:34)
[2019-07-04] MEDS: PIPERACILLIN SODIUM/TAZOBACTAM 3.375 GM in NORMAL SALINE 100 ML IV SCH ×2 (04:12→08:36)
[2019-07-04] MEDS: NORMAL SALINE 1000 ML 1,000 ML IV PRN (04:13)
[2019-07-04] MEDS: MORPHINE SULFATE 10 MG/ML INJ IV PRN ×2 (05:48→10:38)
[2019-07-04] MEDS: PANTOPRAZOLE SODIUM 40 MG TABLET.DR PO SCH (05:48)
[2019-07-04 07:27] LABS: ANION GAP 11 (5-19); BLOOD UREA NITROGEN 15 mg/dL (7-20); CALCIUM 8.6 mg/dL (8.4-10.2); CARBON DIOXIDE 23 mmol/L (22-30); CHLORIDE 106 mmol/L (98-107); GLUCOSE 190 mg/dL (75-110)
[2019-07-04] MEDS: ACETAMINOPHEN 325 MG TABLET PO SCH (08:33)
[2019-07-04] MEDS: METOCLOPRAMIDE HCL 10 MG TABLET PO SCH ×2 (08:34→10:31)
[2019-07-04] MEDS: INSULIN REG, HUMAN 100 UNIT/ML 3 ML VIAL (PYX) SUBCUT SCH ×2 (08:34→11:02)
[2019-07-04] MEDS: METFORMIN HCL 500 MG TABLET PO SCH (08:34)
[2019-07-04] MEDS: HUM INSULIN NPH/REG INSULIN HM 100 UNIT/1 ML 3 ML SUBCUT SCH (08:35)
[2019-07-04] MEDS: BUSPIRONE HCL 10 MG TABLET PO SCH (10:28)
[2019-07-04] MEDS: CITALOPRAM HYDROBROMIDE 20 MG TABLET PO SCH (10:30)
[2019-07-04] MEDS: ASPIRIN 81 MG TABLET, ENT COATED PO SCH (10:30)
[2019-07-04] MEDS: CARVEDILOL 3.125 MG TABLET PO SCH (10:30)
[2019-07-04] MEDS: LISINOPRIL 5 MG TABLET PO SCH (10:30)
[2019-07-04] MEDS: DOCUSATE SODIUM 100 MG CAPSULE PO SCH (10:30)
[2019-07-04] MEDS: FAMOTIDINE 20 MG TABLET PO SCH (10:30)
[2019-07-04] MEDS: FENOFIBRATE NANOCRYSTALLIZED 145 MG TABLET PO SCH (10:30)
--- NOTE | 2019-07-04 12:59 | PDOC DISCHARGE SUMMARY ---
Impression - Admit/DC Date/PCP Admission Date/Primary Care Provider: 07/02/19 02:48 SUNSHINE NEUMANN DO Discharge Date: 07/04/19 - Discharge Diagnosis (1) Neuropathic ulcer Is this a current diagnosis for this admission?: Yes (2) Cellulitis of right index finger Is this a current diagnosis for this admission?: Yes (3) Diabetes mellitus type 2 in obese Is this a current diagnosis for this admission?: Yes (4) Peripheral vascular disease in diabetes mellitus Is this a current diagnosis for this admission?: Yes (5) Depression Is this a current diagnosis for this admission?: Yes (6) Hypertension Is this a current diagnosis for this admission?: Yes (7) DANNI (acute kidney injury) Is this a current diagnosis for this admission?: Yes (8) Group B streptococcal bacteriuria Is this a current diagnosis for this admission?: Yes - Assessment Summary: Patient will be admitted a to the medical floor and receive usual supportive and symptomatic cares. She will be treated with IV antibiotics utilizing Zosyn and vancomycin. Surgical consultation with Dr. Villalpando will be obtained. Her potassium be corrected with IV fluids and control of her blood sugar. She will receive morphine 2 to 4 mg IV every 2 hours on an as-needed basis for pain. Before meals and at bedtime Accu-Cheks will be obtained with sliding scale insulin for treatment of hyperglycemia and and hypoglycemic protocol in place. Patient be continued on her usual medications were possible. - Additional Information Resuscitation Status: Full Code Discharge Diet: Cardiac, Diabetic Discharge Activity: Activity As Tolerated Referrals: WOUND CARE [Outside] - 07/08/19 8:00 am SUNSHINE NEUMANN DO [Primary Care Provider] - 07/10/19 11:00 am (Please follow up with Sunshine Neumann DO on 07/10/19 at 11:00am. If you have any questions please call the office directly at .) Prescriptions: Amox Tr/Potassium Clavulanate [Augmentin 875-125 mg Tablet] 1 tab PO BID #20 tablet Home Medications: Acetaminophen [Tylenol Extra Strength 500 mg Tablet] 1,000 mg PO QAM 07/02/19 Acetaminophen/Diphenhydramine [Tylenol Pm Ex-Strength Caplet] 1 each PO QHS 07/02/19 Aspirin [Adult Low Dose Aspirin EC] 81 mg PO DAILY 07/02/19 Atorvastatin Calcium [Lipitor 80 mg Tablet] 80 mg PO QHS 07/02/19 Buspirone HCl [Buspar 15 mg Tablet] 7.5 mg PO Q12 07/02/19 Carvedilol [Coreg 3.125 mg Tablet] 3.125 mg PO Q12 07/02/19 Citalopram Hydrobromide [Celexa 40 mg Tablet] 40 mg PO DAILY 07/02/19 Fenofibrate Nanocrystallized [Tricor 145 mg Tablet] 145 mg PO DAILY 07/02/19 Gabapentin [Neurontin] 600 mg PO QID 07/02/19 Lisinopril [Prinivil 5 mg Tablet] 5 mg PO DAILY 07/02/19 Metformin HCl [Glucophage 500 mg Tablet] 500 mg PO QAM 07/02/19 Metformin HCl [Glucophage] 1,000 mg PO QHS 07/02/19 Metoclopramide HCl [Reglan 10 mg Tablet] 10 mg PO ACHS 07/02/19 NPH, Human Insulin Isophane [Humulin N (NPH) Insulin 100 unit/mL] 50 unit INJ QHS 07/02/19 Ondansetron HCl [Zofran 4 mg Tablet] 4 mg PO PRN PRN 07/02/19 Oxycodone HCl [Oxy-Ir 5 mg Tablet] 10 mg PO Q8HP PRN 07/02/19 Pantoprazole Sodium [Protonix [address] Tablet] 40 mg PO Q6AM 07/02/19 Trazodone HCl [Desyrel 50 mg Tablet] 50 mg PO QHS 07/02/19 Warfarin Sodium [Coumadin 3 mg Tablet] 3 mg PO DAILY 07/02/19 Amox Tr/Potassium Clavulanate [Augmentin 875-125 mg Tablet] 1 tab PO BID #20 tablet 07/04/19 Atorvastatin Calcium [Lipitor 80 mg Tablet] 80 mg PO QHS tablet 07/04/19 Carvedilol [Coreg 3.125 mg Tablet] 3.125 mg PO Q12 tablet 07/04/19 Citalopram Hydrobromide [Celexa 20 mg Tablet] 40 mg PO DAILY tablet 07/04/19 Lisinopril [Prinivil 5 mg Tablet] 5 mg PO DAILY tablet 07/04/19 History of Present Illiness History of Present Illness: HELDER SERNA is a 48 year old female diabetic patient with severe neuropathy from her diabetes. She has already undergone a right below-knee amputation in the past. She believes that she may have bumped her finger. The right index finger had a dark eschar on it. There was surrounding erythema. They thought it might be effective to dip the finger and water to try and soften the eschar. This was ineffective. The patient finally presented to the emergency department. She did not have an elevated white blood cell count but clearly the finger was infected and she was referred to the hospitalist for admission for IV antibiotic therapy. Hospital Course Hospital Course: The patient had a fairly unremarkable hospital course. Advice from the wound care center was obtained and the eschar was painted with Betadine daily. Initially the patient experienced some drainage and it was felt that the eschar was eulalia and therefore drainage was allowed to escape under the eschar. She states that the drainage decreased over time. Initially you could see small droplets of drainage breaking through small defects in the eschar. The patient was never febrile and she did not exhibit an elevation of her white blood cell count. She did see an increase in her creatinine. This may be secondary to the vancomycin. With IV fluids it began to improve. The patient is stable for discharge with ongoing antibiotic therapy using Augmentin as an outpatient and continued applications of Betadine. She will follow-up in the wound care clinic. Physical Exam Vital Signs: Temp Pulse Resp BP Pulse Ox 98.5 F 94 16 134/63 H 93 07/04/19 07:40 07/04/19 07:40 07/04/19 07:40 07/04/19 07:40 07/04/19 07:40 Intake & Output 07/03/19 07/04/19 07/05/19 06:59 06:59 06:59 Intake Total 1750 1650 Output Total 750 Balance 1000 1650 Weight 81 kg General appearance: PRESENT: no acute distress, cooperative, well-developed Head exam: PRESENT: atraumatic, normocephalic Respiratory exam: PRESENT: clear to auscultation amaya, symmetrical, unlabored. ABSENT: rales, rhonchi, tachypnea, wheezes Cardiovascular exam: PRESENT: RRR, +S1, +S2 GI/Abdominal exam: PRESENT: normal bowel sounds, soft. ABSENT: distended, tenderness Rectal exam: PRESENT: deferred Extremities exam: PRESENT: pedal edema Musculoskeletal exam: PRESENT: deformity - Right below-knee amputation. ABSENT: ambulatory Neurological exam: PRESENT: alert, awake, oriented to person, oriented to place, oriented to time, oriented to situation, CN II-XII grossly intact Psychiatric exam: PRESENT: appropriate affect, normal mood. ABSENT: agitated, anxious Skin exam: PRESENT: other - Still with eschar on the right index finger. Swelling is improved. Results Laboratory Results: WBC 6.9 10^3/uL (4.0-10.5) 07/03/19 06:07 RBC 3.84 10^6/uL (3.72-5.28) 07/03/19 06:07 Hgb 10.1 g/dL (12.0-15.5) L 07/03/19 06:07 Hct 30.1 % (36.0-47.0) L 07/03/19 06:07 MCV 79 fl (80-97) L 07/03/19 06:07 MCH 26.3 pg (27.0-33.4) L 07/03/19 06:07 MCHC 33.5 g/dL (32.0-36.0) 07/03/19 06:07 RDW 18.1 % (11.5-14.0) H 07/03/19 06:07 Plt Count 252 10^3/uL (150-450) 07/03/19 06:07 Lymph % (Auto) 29.4 % (13-45) 07/01/19 20:33 Jay % (Auto) 5.7 % (3-13) 07/01/19 20:33 Eos % (Auto) 2.8 % (0-6) 07/01/19 20:33 Baso % (Auto) 0.8 % (0-2) 07/01/19 20:33 Absolute Neuts (auto) 4.2 10^3/uL (1.7-8.2) 07/01/19 20:33 Absolute Lymphs (auto) 2.0 10^3/uL (0.5-4.7) 07/01/19 20:33 Absolute Monos (auto) 0.4 10^3/uL (0.1-1.4) 07/01/19 20:33 Absolute Eos (auto) 0.2 10^3/uL (0.0-0.6) 07/01/19 20:33 Absolute Basos (auto) 0.1 10^3/uL (0.0-0.2) 07/01/19 20:33 Seg Neutrophils % 61.3 % (42-78) 07/01/19 20:33 Sodium 139.8 mmol/L (137-145) 07/04/19 06:48 Potassium 4.0 mmol/L (3.6-5.0) 07/04/19 06:48 Chloride 106 mmol/L (98-107) 07/04/19 06:48 Carbon Dioxide 23 mmol/L (22-30) 07/04/19 06:48 Anion Gap 11 (5-19) 07/04/19 06:48 BUN 15 mg/dL (7-20) 07/04/19 06:48 Creatinine 1.38 mg/dL (0.52-1.25) H 07/04/19 06:48 Est GFR ( Amer) 49 (>60) L 07/04/19 06:48 Est GFR (MDRD) Non-Af 41 (>60) L 07/04/19 06:48 Glucose 190 mg/dL (75-110) H 07/04/19 06:48 POC Glucose 147 mg/dL (70-110) H 07/04/19 10:40 Lactic Acid 1.1 mmol/L (0.7-2.1) 07/01/19 22:55 Calcium 8.6 mg/dL (8.4-10.2) 07/04/19 06:48 Magnesium 1.8 mg/dL (1.6-2.3) 07/03/19 06:07 Total Bilirubin 0.4 mg/dL (0.2-1.3) 07/01/19 20:33 Direct Bilirubin 0.2 mg/dL (0.0-0.4) 07/01/19 20:33 Neonat Total Bilirubin Not Reportable 07/01/19 20:33 Neonat Direct Bilirubin Not Reportable 07/01/19 20:33 Neonat Indirect Bili Not Reportable 07/01/19 20:33 AST 15 U/L (14-36) 07/01/19 20:33 ALT 8 U/L (<35) 07/01/19 20:33 Alkaline Phosphatase 59 U/L (38-126) 07/01/19 20:33 Total Protein 7.1 g/dL (6.3-8.2) 07/01/19 20:33 Albumin 3.6 g/dL (3.5-5.0) 07/01/19 20:33 Serum HCG, Qual NEGATIVE (NEGATIVE) 07/01/19 20:33 Urine Color YELLOW 07/02/19 01:45 Urine Appearance CLEAR 07/02/19 01:45 Urine pH 5.0 (5.0-9.0) 07/02/19 01:45 Ur Specific [place] 1.023 07/02/19 01:45 Urine Protein >=500 mg/dL (NEGATIVE) H 07/02/19 01:45 Urine Glucose (UA) >=500 mg/dL (NEGATIVE) H 07/02/19 01:45 Urine Ketones NEGATIVE mg/dL (NEGATIVE) 07/02/19 01:45 Urine Blood SMALL (NEGATIVE) H 07/02/19 01:45 Urine Nitrite (Reflex) NEGATIVE (NEGATIVE) 07/02/19 01:45 Urine Bilirubin NEGATIVE (NEGATIVE) 07/02/19 01:45 Urine Urobilinogen NEGATIVE mg/dL (<2.0) 07/02/19 01:45 Leukocyte Esterase Rfl NEGATIVE (NEGATIVE) 07/02/19 01:45 Urine RBC (Auto) 8 /HPF 07/02/19 01:45 U Hyaline Cast (Auto) 3 /LPF 07/02/19 01:45 Urine WBC (Reflex) 13 /HPF 07/02/19 01:45 Squamous Epi Cells Auto 1 /HPF 07/02/19 01:45 Urine Mucus (Auto) RARE /LPF 07/02/19 01:45 Urine Ascorbic Acid NEGATIVE (NEGATIVE) 07/02/19 01:45 Time Trough Drawn 1901 07/03/19 19:01 Vancomycin Trough 13.8 ug/mL (5.0-20.0) 07/03/19 19:01 Impressions: Finger X-Ray 07/01/19 20:23 IMPRESSION: No acute bony findings in the right index finger. Plan Health Concerns: With severity of neuropathy and history of vascular disease there is significant concern for recurrent injuries/ulcerations. Plan of Treatment: Continue Betadine applications twice daily. Follow-up with wound care center as well as primary care provider. Goals: Complete resolution of the infection. Time Spent: Greater than 30 Minutes Stroke Is this a Stroke Patient?: No Acute Heart Failure - Is this a Heart Failure Patient?: No
[2019-07-04 14:00] VITALS: BP 99/60
== END 2019-07-04 15:55 | disposition home or self-care (01) | DRG 638 ==
LOC: ER 19:51 → EH 07-02 02:48 → 2N 07-02 05:52
PROVIDERS: ADMIT Emergency Medicine; ATTEND Emergency Medicine
DX: E11.622 Type 2 diabetes mellitus with other skin ulcer (principal); I13.0 Hypertensive heart and chronic kidney disease with heart failure and stage 1 through stage 4 chronic kidney disease, or unspecified chronic kidney disease; I50.32 Chronic diastolic (congestive) heart failure; L03.011 Cellulitis of right finger; N17.9 Acute kidney failure, unspecified; E11.40 Type 2 diabetes mellitus with diabetic neuropathy, unspecified; E11.65 Type 2 diabetes mellitus with hyperglycemia; L98.499 Non-pressure chronic ulcer of skin of other sites with unspecified severity; R82.71 Bacteriuria; B95.1 Streptococcus, group B, as the cause of diseases classified elsewhere; E87.5 Hyperkalemia; E11.22 Type 2 diabetes mellitus with diabetic chronic kidney disease; N18.3 Chronic kidney disease, stage 3 (moderate); E11.51 Type 2 diabetes mellitus with diabetic peripheral angiopathy without gangrene; I25.10 Atherosclerotic heart disease of native coronary artery without angina pectoris; I48.91 Unspecified atrial fibrillation; F32.9 Major depressive disorder, single episode, unspecified; Z89.511 Acquired absence of right leg below knee; Z79.01 Long term (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 of anticoagulants; Z79.84 Long term (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 of oral hypoglycemic drugs; Z79.82 Long term (current) use of aspirin; Z79.4 Long term (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 of insulin; Z79.899 Other long term (current) drug therapy; Z91.19 Patient's noncompliance with other medical treatment and regimen
CPT/HCPCS: 36415; 80048; 80053; 80202; 81001; 82962; 83605; 83735; 84703; 85025; 85027; 87040; 87086; 87088; 96365; 96375; 99284; J0360; J0692; J1644; J1815; J2270; J2543; J2550; J3370; J3490; J7030; J7040; J7050; J7060

== ENCOUNTER → 2019-08-11 | Outpatient (CLI) | payer MEDICAID, MEDICARE ==
[2019-08-11 11:55] LABS: ABSOLUTE BASOPHILS # (AUTO) 0.1 10^3/uL (0.0-0.2); ABSOLUTE EOSINOPHILS # (AUTO) 0.1 10^3/uL (0.0-0.6); ABSOLUTE LYMPHOCYTES (AUTO) 1.2 10^3/uL (0.5-4.7); ABSOLUTE MONOCYTES (AUTO) 0.3 10^3/uL (0.1-1.4); ABSOLUTE NEUT (AUTO) 3.8 10^3/uL (1.7-8.2); BASOPHILS % (AUTO) 1.8 % (0-2); EOSINOPHILS % (AUTO) 2.4 % (0-6); HEMATOCRIT 29.8 % (36.0-47.0); HEMOGLOBIN 9.5 g/dL (12.0-15.5); LYMPHOCYTES % (AUTO) 22.5 % (13-45); MEAN CORPUSCULAR HEMOGLOBIN 25.7 pg (27.0-33.4); MEAN CORPUSCULAR HGB CONC 31.8 g/dL (32.0-36.0); MEAN CORPUSCULAR VOLUME 81 fl (80-97); MONOCYTES % (AUTO) 4.6 % (3-13); PLATELET COUNT 247 10^3/uL (150-450); RED BLOOD COUNT 3.69 10^6/uL (3.72-5.28); RED CELL DISTRIBUTION WIDTH 18.2 % (11.5-14.0); SEGMENTED NEUTROPHILS % (AUTO) 68.7 % (42-78); TOTAL CELLS COUNTED % (AUTO) 100 %; WHITE BLOOD COUNT 5.5 10^3/uL (4.0-10.5)
[2019-08-11 12:19] LABS: ALBUMIN 3.7 g/dL (3.5-5.0); ALKALINE PHOSPHATASE 43 U/L (38-126); ANION GAP 12 (5-19); ASPARTATE AMINO TRANSFERASE 15 U/L (14-36); BILIRUBIN,DIRECT 0.4 mg/dL (0.0-0.4); BILIRUBIN,TOTAL 0.4 mg/dL (0.2-1.3); BLOOD UREA NITROGEN 22 mg/dL (7-20); CALCIUM 9.3 mg/dL (8.4-10.2); CARBON DIOXIDE 24 mmol/L (22-30); CHLORIDE 101 mmol/L (98-107); GLUCOSE 251 mg/dL (75-110); POTASSIUM 4.8 mmol/L (3.6-5.0); TOTAL PROTEIN 7.1 g/dL (6.3-8.2)
--- NOTE | 2019-08-11 14:35 | RADIOLOGY REPORT (SQ) ---
EXAM DESCRIPTION: HAND RIGHT 3 VIEWS COMPLETED DATE/TIME: 08/11/2019 11:43 am REASON FOR STUDY: TYPE 2 DIABETES MELLITUS WITH OTHER SKIN ULCER E11.622 TYPE 2 DIABETES MELLITUS W ITH OTHER SKIN ULCER T23.221D BURN SECOND DEGREE OF SINGLE R FINGER EXCEPT THUMB, COMPARISON: 06/17/2018 EXAM PARAMETERS: NUMBER OF VIEWS: Three views. TECHNIQUE: AP, lateral and oblique radiographic images acquired of the right hand. LIMITATIONS: None. FINDINGS: MINERALIZATION: Normal. BONES: No fracture dislocation. No evidence of osteomyelitis. JOINTS: No effusions. SOFT TISSUES: There is a bandage on the 2nd digit. OTHER: No other significant finding. IMPRESSION: No evidence of osteomyelitis. TECHNICAL DOCUMENTATION: JOB ID: [id number] [employer]- All Rights Reserved Reading location - IP/workstation name: [email or web address]
== END ==
LOC: WC 10:42
PROVIDERS: ATTEND Plastic Surgery
DX: E11.622 Type 2 diabetes mellitus with other skin ulcer (principal); T23.221D Burn of second degree of single right finger (nail) except thumb, subsequent encounter; X58.XXXD Exposure to other specified factors, subsequent encounter
CPT/HCPCS: 36415; 80053; 83036; 85025; 85652; 86141

== ENCOUNTER 2019-09-29 22:30 | Inpatient (IN) | payer MEDICAID, MEDICARE ==
[2019-09-29 23:38] LABS: ABSOLUTE BASOPHILS # (AUTO) 0.1 10^3/uL (0.0-0.2); ABSOLUTE EOSINOPHILS # (AUTO) 0.1 10^3/uL (0.0-0.6); ABSOLUTE MONOCYTES (AUTO) 0.5 10^3/uL (0.1-1.4); ABSOLUTE NEUT (AUTO) 7.5 10^3/uL (1.7-8.2); BASOPHILS % (AUTO) 0.7 % (0-2); EOSINOPHILS % (AUTO) 0.8 % (0-6); HEMATOCRIT 27.9 % (36.0-47.0); HEMOGLOBIN 8.8 g/dL (12.0-15.5); LYMPHOCYTES % (AUTO) 11.3 % (13-45); MEAN CORPUSCULAR HEMOGLOBIN 25.5 pg (27.0-33.4); MEAN CORPUSCULAR HGB CONC 31.6 g/dL (32.0-36.0); MEAN CORPUSCULAR VOLUME 81 fl (80-97); MONOCYTES % (AUTO) 5.3 % (3-13); PLATELET COUNT 271 10^3/uL (150-450); RED BLOOD COUNT 3.45 10^6/uL (3.72-5.28); RED CELL DISTRIBUTION WIDTH 18.6 % (11.5-14.0); SEGMENTED NEUTROPHILS % (AUTO) 81.9 % (42-78); TOTAL CELLS COUNTED % (AUTO) 100 %; WHITE BLOOD COUNT 9.2 10^3/uL (4.0-10.5)
[2019-09-29 23:58] LABS: ALBUMIN 3.4 g/dL (3.5-5.0); ALKALINE PHOSPHATASE 94 U/L (38-126); ANION GAP 13 (5-19); ASPARTATE AMINO TRANSFERASE 60 U/L (14-36); BILIRUBIN,DIRECT 0.4 mg/dL (0.0-0.4); BILIRUBIN,TOTAL 0.4 mg/dL (0.2-1.3); BLOOD UREA NITROGEN 40 mg/dL (7-20); CALCIUM 8.6 mg/dL (8.4-10.2); CARBON DIOXIDE 20 mmol/L (22-30); CHLORIDE 103 mmol/L (98-107); GLUCOSE 303 mg/dL (75-110); POTASSIUM 4.9 mmol/L (3.6-5.0); TOTAL PROTEIN 6.8 g/dL (6.3-8.2)
[2019-09-30] MEDS ORDERED: NORMAL SALINE 1000 ML 1,000 ML IV ONE (01:21)
--- NOTE | 2019-09-30 01:22 | ER Document Report ---
Entered by SEAN SAPP SCRIBE 09/30/19 0039 Acting as scribe for:SUZANNE LORD DO ED GI/ - General Chief Complaint: Flank Pain Stated Complaint: UNABLE TO VOID/FLANK PAIN Time Seen by Provider: 09/30/19 00:36 Primary Care Provider: THERESE NEUMANN DO [Primary Care Provider] - Follow up as needed Mode of Arrival: Wheelchair Information source: Patient Notes: This 49 year old female patient with a history of renal failure, diabetes, kidney stones, hypertension, anemia, and COPD presents to the ED today with complaints of bilateral flank pain for the past x2 weeks. Patient states that she initially thought the pain was related to her chronic low back pain, so she put a lidocaine patch on it without relief. Patient reports urinary retention, dysuria, and decreased urine output for the past x3 days. Patient states that s he has not been taking her medications because she is waiting on her refills. Patient denies cough, cold, sore throat, nasal discharge, or fever. TRAVEL OUTSIDE OF THE [place] IN LAST 30 DAYS: No - Related Data Allergies/Adverse Reactions: amlodipine Allergy (Verified 07/01/19 20:17) isosorbide [From Imdur] Allergy (Verified 07/01/19 20:17) zolpidem [From Ambien] Allergy (Verified 07/01/19 20:17) Past Medical History - General Information source: Patient - Social History Smoking Status: Former Smoker Cigarette use (# per day): No Chew tobacco use (# tins/day): No Smoking Education Provided: No Family History: Reviewed & Not Pertinent, CAD, CVA, DM, Hypertension, Malignancy, Other - Kidney disease Patient has suicidal ideation: No Patient has homicidal ideation: No - Past Medical History Cardiac Medical History: Reports: Hx Atrial Fibrillation, Hx Congestive Heart Failure, Hx Coronary Artery Disease, Hx DVT, Hx Heart Attack, Hx Hypertension, Hx Peripheral Vascular Disease Pulmonary Medical History: Reports: Hx Bronchitis, Hx COPD, Hx Pneumonia Endocrine Medical History: Reports: Hx Diabetes Mellitus Type 2 Renal/ Medical History: Reports: Hx Kidney Stones, Hx Renal Insufficiency GI Medical History: Reports: Hx Gastroesophageal Reflux Disease, Hx Hiatal Hernia, Hx Irritable Bowel Musculoskeletal Medical History: Reports Hx Arthritis, Reports Hx Musculoskeletal Deformity, Reports Hx Musculoskeletal Trauma Skin Medical History: Reports Hx Cellulitis Psychiatric Medical History: Reports: Hx Anxiety, Hx Depression Past Surgical History: Reports: Hx Abdominal Surgery, Hx Cardiac Catheterization, Hx Section - x2, Hx Cholecystectomy, Hx Coronary Artery Bypass Graft - x3, Hx Herniorrhaphy - Ventral hernia, Hx Orthopedic Surgery - Knee surgery, Hx Tubal Ligation, Hx Vascular Surgery - Left iliofemoral bypass, Other - Peripheral nerve stimulator implantation - Immunizations Immunizations up to date: Yes Hx Diphtheria, Pertussis, Tetanus Vaccination: Yes Hx Pneumococcal Vaccination: 07/23/09 Review of Systems - Review of Systems Constitutional: See HPI. denies: Fever EENT: See HPI. denies: Nose discharge, Throat pain Cardiovascular: No symptoms reported Respiratory: See HPI. denies: Cough Gastrointestinal: No symptoms reported Genitourinary: See HPI, Dysuria, Flank pain, Retention Female Genitourinary: No symptoms reported Musculoskeletal: No symptoms reported Skin: No symptoms reported Hematologic/Lymphatic: No symptoms reported Neurological/Psychological: No symptoms reported -: Yes All other systems reviewed and negative Physical Exam - Vital signs Vitals: Temp Pulse Resp BP Pulse Ox 99.2 F 98 18 116/67 96 09/29/19 22:38 09/29/19 22:38 09/29/19 22:38 09/29/19 22:38 09/29/19 22:38 Interpretation: Normal - General General appearance: Alert, Other - Chronically ill appearing. Appears older than stated age. - HEENT Head: Normocephalic, Atraumatic Eyes: Normal Pupils: PERRL Mucous membranes: Dry - Respiratory Respiratory status: No respiratory distress Chest status: Nontender Breath sounds: Normal Chest palpation: Normal - Cardiovascular Rhythm: Regular Heart sounds: Normal auscultation Murmur: No - Abdominal Inspection: Obese Distension: No distension Bowel sounds: Normal Tenderness: Nontender - Abdomen soft Organomegaly: No organomegaly - Back Back: Normal, Nontender - Extremities General upper extremity: Normal inspection General lower extremity: Other - Right BKA. Healed scar on left knee. - Neurological Neuro grossly intact: Yes [place] Coma Scale Eye Opening: Spontaneous Valeri Coma Scale Verbal: Oriented [place] Coma Scale Motor: Obeys Commands Valeri Coma Scale Total: 15 - Psychological Associated symptoms: Normal affect, Normal mood - Skin Skin Temperature: Warm Skin Moisture: Dry Skin Color: Normal Course - Re-evaluation Re-evalutation: 09/30/19 05:39 MDM Chronically ill appearing diabetic with urinary retention. 550ml in bladder on cath and ct shows chronic disease. Clinically dry. IVF here and I have spoken with Dr. Argueta and he has graciously agreed to see and evaluate for admission. - Vital Signs Vital signs: Temp Pulse Resp BP Pulse Ox 99.2 F 98 18 116/67 96 09/29/19 22:38 09/29/19 22:38 09/29/19 22:38 09/29/19 22:38 09/29/19 22:38 - Laboratory Result Diagrams: 09/29/19 23:22 09/29/19 23:22 Laboratory results interpreted by me: 09/29/19 09/29/19 09/30/19 23:22 23:22 00:55 RBC 3.45 L Hgb 8.8 L Hct 27.9 L MCH 25.5 L MCHC 31.6 L RDW 18.6 H Lymph % (Auto) 11.3 L Seg Neutrophils % 81.9 H Sodium 135.6 L Carbon Dioxide 20 L BUN 40 H Creatinine 1.86 H Est GFR ( Amer) 35 L Est GFR (MDRD) Non-Af 29 L Glucose 303 H Lactic Acid AST 60 H Albumin 3.4 L Urine Protein >=500 H Urine Glucose (UA) 50 H Urine Blood SMALL H 09/30/19 01:42 RBC Hgb Hct MCH MCHC RDW Lymph % (Auto) Seg Neutrophils % Sodium Carbon Dioxide BUN Creatinine Est GFR ( Amer) Est GFR (MDRD) Non-Af Glucose Lactic Acid 2.2 H AST Albumin Urine Protein Urine Glucose (UA) Urine Blood - Diagnostic Test Radiology reviewed: Image reviewed, Reports reviewed Discharge - Discharge Clinical Impression: Urinary retention Condition: Fair Disposition: ADMITTED INPATIENT Admitting Provider: Kendall (Hospitalist) Unit Admitted: Medical Floor Referrals: THERESE NEUMANN, [Primary Care Provider] - Follow up as needed I personally performed the services described in the documentation, reviewed and edited the documentation which was dictated to the scribe in my presence, and it accurately records my words and actions.
[2019-09-30 01:30] LABS: APPEARANCE,URINE CLEAR; BILIRUBIN,URINE NEGATIVE (NEGATIVE); COLOR,URINE YELLOW; GLUCOSE, URINE 50 mg/dL (NEGATIVE); KETONES,URINE NEGATIVE (NEGATIVE); LEUKOCYTE ESTERASE,URINE NEGATIVE (NEGATIVE); NITRITE,URINE NEGATIVE (NEGATIVE); PROTEIN,URINE >=500 mg/dL (NEGATIVE); URINE SPECIFIC GRAVITY 1.018; UROBILINOGEN,URINE NEGATIVE mg/dL (<2.0)
--- NOTE | 2019-09-30 02:33 | RADIOLOGY REPORT (SQ) ---
CT abdomen and pelvis without contrast on 09/30/2019 at 1:49 AM CLINICAL INDICATION: Back pain, history of kidney stones TECHNIQUE: Multiple axial images are obtained throughout the abdomen and pelvis without the administration of contrast. This exam was performed according to our departmental dose-optimization program, which includes automated exposure control, adjustment of the mA and/or kV according to patient size and/or use of iterative reconstruction technique. Total DLP is 941.17 mGy*cm. COMPARISON: None FINDINGS: Abdomen: Coronary artery calcifications and other extensive vascular calcifications are noted. There is minimal bibasilar atelectasis. Mild cardiomegaly is noted. The patient is status post cholecystectomy. There are no ureteral stones and no hydronephrosis. Calcifications in the kidneys are all favored to be vascular but would be difficult to fully exclude tiny nonobstructing renal stone. Splenomegaly is noted with the spleen measuring 16 cm in greatest pole to pole length. Very small amount of ascites is noted adjacent to the liver. No free air is noted in the abdomen. The unenhanced solid abdominal organs are otherwise unremarkable. There is no abdominal adenopathy. The abdominal portion of the GI tract is unremarkable. Pelvis: Extensive anasarca is noted in the subcutaneous tissues. Small amount of ascites is noted in the pelvis. Pelvic organs appear unremarkable by CT. There is no pelvic adenopathy. Pelvic portion of the GI tract including the appendix is unremarkable. Degenerative changes are noted in the spine. No acute bony abnormality is noted. IMPRESSION: 1. Ascites and anasarca suggesting some component of volume overload and/or third spacing. 2. Splenomegaly.
[2019-09-30] MEDS ORDERED: CEFTRIAXONE 1 GM/D5W RTU 1 GM/50 ML RTUPB IV ONE (03:52)
[2019-09-30] MEDS ORDERED: IPRATROPIUM/ALBUTEROL 0.5-2.5 MG/3 ML AMPUL NEB PRN (05:42)
[2019-09-30] MEDS ORDERED: ACETAMINOPHEN 325 MG TABLET PO PRN (05:42)
[2019-09-30] MEDS ORDERED: MAG HYDROX/AL HYDROX/SIMETH SUSP 30 ML UDCUP PO PRN (05:42)
[2019-09-30] MEDS ORDERED: GLUCAGON,HUMAN RECOMB 1 MG INJ IM PRN (05:47)
[2019-09-30] MEDS ORDERED: DEXTROSE 40% GEL 15 GM TUBE PO PRN ×2 (05:47)
[2019-09-30] MEDS ORDERED: DEXTROSE 50%-WATER 25 GM/50 ML DISP.SYRIN IV PRN ×2 (05:47)
[2019-09-30 06:05] LABS: PROTHROMBIN TIME 15.3 SEC (11.4-15.4)
[2019-09-30 06:19] LABS: CHOLESTEROL 98.52 mg/dL (0-200); TRIGLYCERIDES 281 mg/dL (<150)
[2019-09-30 06:22] LABS: ABSOLUTE RETICS # 0.162 10^6/uL (0.028-0.122); RETICULOCYTE COUNT (AUTO) 4.74 % (0.66-2.85)
[2019-09-30] MEDS: HEPARIN SOD (PORCINE) 5,000 UNIT/ML 1 ML VIAL SUBCUT SCH ×3 (06:29→22:24)
[2019-09-30 06:30] LABS: DIRECT LDL 37 mg/dL (<100); PREALBUMIN 20.1 mg/dL (17.6-36.0)
[2019-09-30 06:31] LABS: VLDL CHOLESTEROL 56.2 mg/dL (10-31)
--- NOTE | 2019-09-30 06:31 | PDOC H&P ---
History of Present Illness Admission Date/PCP: THERESE NEUMANN DO Patient complains of: Difficulty urinating History of Present Illness: HELDER SERNA is a 49 year old female with an extensive past medical history of diabetes, peripheral vascular disease, status post right BKA, gastroparesis, obstructive sleep apnea, coronary artery disease, atrial fibrillation status post coronary artery bypass graft and nephrolithiasis. She presents with approximately 2 days of difficulty urinating with prolonged straining to urinate. In the emergency department she is found to have 500 mL urinary bladder residual prompting in and out cath with urinalysis showing proteinuria. Chemistry reveals acute renal failure, CBC reveals anemia, CT does not show hydronephrosis or outlet obstruction, it does show anasarca. She denies recent change in medications and is otherwise felt well. She does take trazodone and diphenhydramine regularly. Past Medical History Cardiac Medical History: Reports: Atrial Fibrillation, Congestive Heart Failure, Coronary Artery Disease, DVT, Myocardial Infarction, Hypertension, Peripheral Vascular Disease Pulmonary Medical History: Reports: Bronchitis, Chronic Obstructive Pulmonary Disease (COPD), Pneumonia Neurological Medical History: Denies: Migraine, Seizures Endocrine Medical History: Reports: Diabetes Mellitus Type 2 Denies: Diabetes Mellitus Type 1, Hyperthyroidism, Hypothyroidism GI Medical History: Reports: Gastroesophageal Reflux Disease, Hiatal Hernia Denies: Cirrhosis, Crohn's Disease, Hepatitis, Ulcerative Colitis Musculoskeltal Medical History: Reports: Arthritis Denies: Fibromyalgia, Gout Skin Medical History: Denies: Eczema, Psoriasis Psychiatric Medical History: Reports: Depression Hematology: Reports: Anemia Denies: Bleeding Tendencies Past Surgical History Past Surgical History: Reports: Amputation - Right BKA, Cardiac Catheterization, Section - x2, Cholecystectomy, Coronary Artery Bypass Graft - x3, H erniorrhaphy - Ventral hernia, Orthopedic Surgery - Knee surgery, Tubal Ligation, Vascular Surgery - Left iliofemoral bypass, Other - Peripheral nerve stimulator implantation Social History Information Source: Patient, [facility] Records Lives with: Family Smoking Status: Former Smoker Frequency of Alcohol Use: Rare Hx Recreational Drug Use: No Drugs: None Hx Prescription Drug Abuse: No - Advance Directive Resuscitation Status: Full Code Family History Family History: CAD, CVA, DM, Hypertension, Malignancy, Other - Kidney disease Parental Family History Reviewed: Yes Children Family History Reviewed: Yes Sibling(s) Family History Reviewed.: Yes Medication/Allergy Home Medications: Acetaminophen [Tylenol Extra Strength 500 mg Tablet] 1,000 mg PO QAM 07/02/19 Acetaminophen/Diphenhydramine [Tylenol Pm Ex-Strength Caplet] 1 each PO QHS 07/02/19 Aspirin [Adult Low Dose Aspirin EC] 81 mg PO DAILY 07/02/19 Atorvastatin Calcium [Lipitor 80 mg Tablet] 80 mg PO QHS 07/02/19 Buspirone HCl [Buspar 15 mg Tablet] 7.5 mg PO Q12 07/02/19 Carvedilol [Coreg 3.125 mg Tablet] 3.125 mg PO Q12 07/02/19 Citalopram Hydrobromide [Celexa 40 mg Tablet] 40 mg PO DAILY 07/02/19 Fenofibrate Nanocrystallized [Tricor 145 mg Tablet] 145 mg PO DAILY 07/02/19 Gabapentin [Neurontin] 600 mg PO QID 07/02/19 Lisinopril [Prinivil 5 mg Tablet] 5 mg PO DAILY 07/02/19 Metformin HCl [Glucophage 500 mg Tablet] 500 mg PO QAM 07/02/19 Metformin HCl [Glucophage] 1,000 mg PO QHS 07/02/19 Metoclopramide HCl [Reglan 10 mg Tablet] 10 mg PO ACHS 07/02/19 NPH, Human Insulin Isophane [Humulin N (NPH) Insulin 100 unit/mL] 50 unit INJ Q HS 07/02/19 Ondansetron HCl [Zofran 4 mg Tablet] 4 mg PO PRN PRN 07/02/19 Oxycodone HCl [Oxy-Ir 5 mg Tablet] 10 mg PO Q8HP PRN 07/02/19 Pantoprazole Sodium [Protonix [address] Tablet] 40 mg PO Q6AM 07/02/19 Trazodone HCl [Desyrel 50 mg Tablet] 50 mg PO QHS 07/02/19 Warfarin Sodium [Coumadin 3 mg Tablet] 3 mg PO DAILY 07/02/19 Amox Tr/Potassium Clavulanate [Augmentin 875-125 mg Tablet] 1 tab PO BID #20 tablet 07/04/19 Atorvastatin Calcium [Lipitor 80 mg Tablet] 80 mg PO QHS tablet 07/04/19 Carvedilol [Coreg 3.125 mg Tablet] 3.125 mg PO Q12 tablet 07/04/19 Citalopram Hydrobromide [Celexa 20 mg Tablet] 40 mg PO DAILY tablet 07/04/19 Lisinopril [Prinivil 5 mg Tablet] 5 mg PO DAILY tablet 07/04/19 Allergies/Adverse Reactions: amlodipine Allergy (Verified 07/01/19 20:17) isosorbide [From Imdur] Allergy (Verified 07/01/19 20:17) zolpidem [From Ambien] Allergy (Verified 07/01/19 20:17) Review of Systems Constitutional: ABSENT: chills, fever(s), headache(s), weight gain, weight loss Eyes: ABSENT: visual disturbances Ears: ABSENT: hearing changes Cardiovascular: ABSENT: chest pain, dyspnea on exertion, edema, orthropnea, pal pitations Respiratory: ABSENT: cough, hemoptysis Gastrointestinal: PRESENT: as per HPI. ABSENT: abdominal pain, constipation, diarrhea, hematemesis, hematochezia, nausea, vomiting Genitourinary: PRESENT: as per HPI, difficulty urinating. ABSENT: dysuria, hematuria Musculoskeletal: ABSENT: joint swelling Integumentary: ABSENT: rash, wounds Neurological: ABSENT: abnormal gait, abnormal speech, confusion, dizziness, focal weakness, syncope Psychiatric: ABSENT: anxiety, depression, homidical ideation, suicidal ideation Endocrine: ABSENT: cold intolerance, heat intolerance, polydipsia, polyuria Hematologic/Lymphatic: ABSENT: easy bleeding, easy bruising Physical Exam Vital Signs: Temp Pulse Resp BP Pulse Ox 99.2 F 98 18 116/67 96 09/29/19 22:38 09/29/19 22:38 09/29/19 22:38 09/29/19 22:38 09/29/19 22:38 Intake & Output 09/28/19 09/29/19 09/30/19 11:59 11:59 11:59 Intake Total 1050 Balance 1050 Weight 81.647 kg General appearance: PRESENT: cooperative, morbidly obese, obese, well-developed, well-nourished Head exam: PRESENT: atraumatic, normocephalic Eye exam: PRESENT: conjunctiva pink, EOMI, PERRLA. ABSENT: scleral icterus Ear exam: PRESENT: normal external ear exam Mouth exam: PRESENT: moist, tongue midline Neck exam: ABSENT: carotid bruit, JVD, lymphadenopathy, thyromegaly Respiratory exam: PRESENT: clear to auscultation amaya. ABSENT: rales, rhonchi, wheezes Cardiovascular exam: PRESENT: RRR. ABSENT: diastolic murmur, rubs, systolic mur mur Pulses: PRESENT: normal dorsalis pedis pul Vascular exam: PRESENT: normal capillary refill GI/Abdominal exam: PRESENT: normal bowel sounds, soft. ABSENT: distended, guarding, mass, organolmegaly, rebound, tenderness Rectal exam: PRESENT: deferred Extremities exam: PRESENT: full ROM. ABSENT: calf tenderness, clubbing, pedal edema Neurological exam: PRESENT: alert, awake, oriented to person, oriented to place, oriented to time, oriented to situation, CN II-XII grossly intact. ABSENT: motor sensory deficit Psychiatric exam: PRESENT: appropriate affect, normal mood. ABSENT: homicidal ideation, suicidal ideation Skin exam: PRESENT: dry, intact, warm. ABSENT: cyanosis, rash Results Laboratory Results: 09/29/19 23:22 09/29/19 23:22 09/29/19 09/29/19 09/30/19 23:22 23:22 00:55 WBC 9.2 RBC 3.45 L Hgb 8.8 L Hct 27.9 L MCV 81 MCH 25.5 L MCHC 31.6 L RDW 18.6 H Plt Count 271 Seg Neutrophils % 81.9 H Sodium 135.6 L Potassium 4.9 Chloride 103 Carbon Dioxide 20 L Anion Gap 13 BUN 40 H Creatinine 1.86 H Est GFR ( Amer) 35 L Glucose 303 H Lactic Acid Calcium 8.6 Total Bilirubin 0.4 AST 60 H Alkaline Phosphatase 94 Total Protein 6.8 Albumin 3.4 L Lipase 26.0 Urine Color YELLOW Urine Appearance CLEAR Urine pH 5.0 Ur Specific [place] 1.018 Urine Protein >=500 H Urine Glucose (UA) 50 H Urine Ketones NEGATIVE Urine Blood SMALL H Urine Nitrite NEGATIVE Ur Leukocyte Esterase NEGATIVE Urine WBC (Auto) 0 Urine RBC (Auto) 1 09/30/19 01:42 WBC RBC Hgb Hct MCV MCH MCHC RDW Plt Count Seg Neutrophils % Sodium Potassium Chloride Carbon Dioxide Anion Gap BUN Creatinine Est GFR ( Amer) Glucose Lactic Acid 2.2 H Calcium Total Bilirubin AST Alkaline Phosphatase Total Protein Albumin Lipase Urine Color Urine Appearance Urine pH Ur Specific [place] Urine Protein Urine Glucose (UA) Urine Ketones Urine Blood Urine Nitrite Ur Leukocyte Esterase Urine WBC (Auto) Urine RBC (Auto) Impressions: Abdomen/Pelvis CT 09/30/19 01:37 IMPRESSION: 1. Ascites and anasarca suggesting some component of volume overload and/or third spacing. 2. Splenomegaly. Assessment and Plan - Diagnosis (1) Urinary retention Is this a current diagnosis for this admission?: Yes Plan: Most likely secondary to medication, in and out catheter every 6 hours as needed urinary bladder residual greater than 300 (2) Anasarca Is this a current diagnosis for this admission?: Yes Plan: Likely secondary to nephrotic syndrome, intravascular depletion with third spacing secondary to low oncotic pressure, follow-up prealbumin, lipid profile. Consider nephrology consult (3) DANNI (acute kidney injury) Is this a current diagnosis for this admission?: Yes Plan: Likely secondary to nephrotic syndrome, follow-up nephrology consult (4) Diabetes mellitus type 2 in obese Is this a current diagnosis for this admission?: Yes Plan: Humalog sliding scale q. before meals, insulin 70/30 5 twice daily, follow-up A1c - Time Time Spent with patient: 25-34 minutes - Inpatient Certification Medical Necessity: Need Close Monitoring Due to Risk of Patient Decompensation
[2019-09-30 06:34] LABS: URINE AMPHETAMINES SCREEN NEGATIVE; URINE BARBITURATES SCREEN NEGATIVE; URINE BENZODIAZEPINES SCREEN NEGATIVE; URINE COCAINE SCREEN NEGATIVE; URINE MARIJUANA (THC) SCREEN NEGATIVE; URINE METHADONE SCREEN NEGATIVE; URINE PHENCYCLIDINE SCREEN NEGATIVE
[2019-09-30 07:07] LABS: IRON(TIBC) 39.1 ug/dL (37-170)
[2019-09-30] MEDS: NORMAL SALINE 1000 ML 1,000 ML IV PRN ×3 (08:07→13:32)
[2019-09-30 08:13] LABS: FOLATE 9.21 ng/mL (>2.76)
[2019-09-30] MEDS: HUM INSULIN NPH/REG INSULIN HM 100 UNIT/1 ML 3 ML SUBCUT SCH ×2 (11:19→16:21)
[2019-09-30] MEDS: INSULIN LISPRO 100 UNIT/ML 3 ML VIAL SUBCUT SCH ×3 (11:20→16:22)
[2019-09-30] MEDS: DOCUSATE SODIUM 100 MG CAPSULE PO SCH ×2 (11:31→17:03)
[2019-09-30] MEDS ORDERED: INFLUENZA QUAD (6MOS+) 2019-20 VAC 0.5 ML SYR IM ONE (11:56)
[2019-09-30] MEDS ORDERED: TRAZODONE HCL 50 MG TABLET PO PRN (15:15)
[2019-09-30] MEDS ORDERED: DIPHENHYDRAMINE HCL 25 MG CAPSULE PO PRN (15:15)
[2019-09-30] MEDS ORDERED: FUROSEMIDE INJ/PF 40 MG/4 ML SDV IV ONE (15:49)
--- NOTE | 2019-09-30 16:19 | PDOC CONSULTATION ---
Consultation Consult Date: 09/30/19 Provider Consulted: EMILY MCFADDEN Consult reason:: ARF History of Present Illness Admission Date/PCP: 09/30/19 07:39 THERESE NEUMANN DO History of Present Illness: HELDER SERNA is a 49 year old female with an extensive past medical history of diabetes, peripheral vascular disease, status post right BKA due to severely decreased blood flow from blood clots during her last cardiac bypass surgery, gastroparesis, CAD with CABAGx3, LOUISA, a-fibstatus. Also has major history of dialysis in 2017 for 6 weeks when she lived in [place], [place]. She claims the DANNI was from urinary retention at the time. She came to the ER due to 2 days of difficulty urinating with prolonged straining to urinate. She has been noticing some back pain a week prior but she was not sure if it was related. In the emergency department she is found to have 500 mL urinary bladder residual prompting in and out cath. Urinalysis showed small blood and proteinuria. Chemistry reveals of 1.86, CBC showed a hemoglobin of 8.8, CT does not show hydronephrosis or outlet obstruction, it does show anasarca. Patient was laying in bed on the third floor when I saw her today. She denies using any over the counter medications besides capsaicin cream. She denies current flank pain, blood in the urine, foamy/frothy looking urine, or dysuria. Past Medical History Cardiac Medical History: Reports: Atrial Fibrillation, Coronary Artery Disease, DVT, Myocardial Infarction, Peripheral Vascular Disease Pulmonary Medical History: Reports: Bronchitis, Chronic Obstructive Pulmonary Disease (COPD), Pneumonia Neurological Medical History: Denies: Migraine, Seizures Endocrine Medical History: Reports: Diabetes Mellitus Type 2 Denies: Diabetes Mellitus Type 1, Hyperthyroidism, Hypothyroidism GI Medical History: Reports: Gastroesophageal Reflux Disease, Hiatal Hernia Denies: Cirrhosis, Crohn's Disease, Hepatitis, Ulcerative Colitis Musculoskeltal Medical History: Reports: Arthritis Denies: Fibromyalgia, Gout Skin Medical History: Denies: Eczema, Psoriasis Psychiatric Medical History: Reports: Depression Past Surgical History Past Surgical History: Reports: Cardiac Catheterization, Section - x2, Cholecystectomy, Coronary Artery Bypass Graft - x3, Herniorrhaphy - Ventral hernia, Orthopedic Surgery - Knee surgery, Tubal Ligation, Vascular Surgery - Left iliofemoral bypass, Other - Peripheral nerve stimulator implantation Social History Lives with: Family Smoking Status: Never Smoker Electronic Cigarette use?: No Frequency of Alcohol Use: None Hx Recreational Drug Use: No Drugs: None Hx Prescription Drug Abuse: No - Advance Directive Resuscitation Status: Full Code Family History Parental Family History Reviewed: Yes Children Family History Reviewed: Unknown Sibling(s) Family History Reviewed.: Unknown Medication/Allergy Home Medications: Acetaminophen [Tylenol Extra Strength 500 mg Tablet] 1,000 mg PO DAILYP PRN 07/02/19 Acetaminophen/Diphenhydramine [Tylenol Pm Ex-Strength Caplet] 1 each PO HSP PRN 07/02/19 Aspirin [Adult Low Dose Aspirin EC] 81 mg PO DAILY 07/02/19 Buspirone HCl [Buspar 15 mg Tablet] 7.5 mg PO Q12 07/02/19 Carvedilol [Coreg 3.125 mg Tablet] 3.125 mg PO Q12 07/02/19 Citalopram Hydrobromide [Celexa 40 mg Tablet] 40 mg PO DAILY 07/02/19 Fenofibrate Nanocrystallized [Tricor 145 mg Tablet] 145 mg PO DAILY 07/02/19 Gabapentin [Neurontin] 600 mg PO QID 07/02/19 Lisinopril [Prinivil 5 mg Tablet] 5 mg PO DAILY 07/02/19 Metformin HCl [Glucophage] 500 mg PO BID 07/02/19 Metoclopramide HCl [Reglan 10 mg Tablet] 10 mg PO ACHS 07/02/19 NPH, Human Insulin Isophane [Humulin N (NPH) Insulin 100 unit/mL] 6 unit INJ DAILY 07/02/19 Ondansetron HCl [Zofran 4 mg Tablet] 4 mg PO PRN PRN 07/02/19 Oxycodone HCl [Oxy-Ir 5 mg Tablet] 10 mg PO Q8HP PRN 07/02/19 Pantoprazole Sodium [Protonix [address] Tablet] 40 mg PO DAILY 07/02/19 Trazodone HCl [Desyrel 50 mg Tablet] 50 mg PO HSP PRN 07/02/19 Warfarin Sodium [Coumadin 3 mg Tablet] 3 mg PO DAILY 07/02/19 Atorvastatin Calcium [Lipitor 80 mg Tablet] 80 mg PO QHS tablet 07/04/19 Ascorbic Acid [Vitamin C] 125 mg PO DAILY 09/30/19 Diphenhydramine HCl [Benadryl] 25 mg PO DAILYP PRN 09/30/19 Allergies/Adverse Reactions: amlodipine Allergy (Severe, Verified 09/30/19 08:47) Hallucinations isosorbide [From Imdur] Allergy (Intermediate, Verified 09/30/19 08:47) RASH zolpidem [From Ambien] Adverse Reaction (Severe, Verified 09/30/19 08:47) Hallucinations Review of Systems Constitutional: PRESENT: chills, fever(s). ABSENT: anorexia Eyes: ABSENT: visual disturbances Cardiovascular: PRESENT: edema. ABSENT: chest pain, dyspnea on exertion, or thropnea Respiratory: ABSENT: cough, dyspnea, sputum Gastrointestinal: PRESENT: nausea. ABSENT: abdominal pain, constipation, diarrhea, vomiting Genitourinary: PRESENT: difficulty urinating. ABSENT: dysuria, hematuria, noct uria Musculoskeletal: PRESENT: back pain, deformity. ABSENT: muscle weakness Neurological: PRESENT: numbness, tingling. ABSENT: focal weakness, weakness Physical Exam Vital Signs: Temp Pulse Resp BP Pulse Ox 98.7 F 106 H 16 131/92 H 93 09/30/19 11:10 09/30/19 12:03 09/30/19 12:03 09/30/19 11:10 09/30/19 12:03 Intake & Output 09/29/19 09/30/19 10/01/19 06:59 06:59 06:59 Intake Total 1050 2000 Balance 1050 2000 Weight 81.647 kg General appearance: PRESENT: no acute distress, well-developed, well-nourished Eye exam: PRESENT: PERRLA. ABSENT: scleral icterus Mouth exam: PRESENT: moist, neck supple Neck exam: ABSENT: JVD, tracheal deviation Respiratory exam: PRESENT: clear to auscultation amaya. ABSENT: accessory muscle use, crackles, rales, rhonchi, wheezes Cardiovascular exam: PRESENT: +S1, +S2 GI/Abdominal exam: PRESENT: soft. ABSENT: ascites, distended, tenderness Extremities exam: PRESENT: pedal edema, +1 edema. ABSENT: tenderness Musculoskeletal exam: PRESENT: deformity - -right bka. ABSENT: tenderness Neurological exam: PRESENT: alert, awake, oriented to person, oriented to place, oriented to time, oriented to situation Skin exam: PRESENT: dry, intact, warm. ABSENT: cyanosis Results Laboratory Results: 09/29/19 23:22 09/29/19 23:22 09/29/19 09/29/19 09/29/19 23:22 23:22 23:22 WBC 9.2 RBC 3.45 L Hgb 8.8 L Hct 27.9 L MCV 81 MCH 25.5 L MCHC 31.6 L RDW 18.6 H Plt Count 271 Seg Neutrophils % 81.9 H Retic Count (auto) 4.74 H Sodium 135.6 L Potassium 4.9 Chloride 103 Carbon Dioxide 20 L Anion Gap 13 BUN 40 H Creatinine 1.86 H Est GFR ( Amer) 35 L Glucose 303 H Lactic Acid Calcium 8.6 Iron TIBC % Saturation Ferritin Total Bilirubin 0.4 AST 60 H Alkaline Phosphatase 94 Total Protein 6.8 Albumin 3.4 L Prealbumin Triglycerides Cholesterol LDL Cholesterol Direct VLDL Cholesterol HDL Cholesterol Lipase 26.0 Vitamin B12 Folate TSH Urine Color Urine Appearance Urine pH Ur Specific [place] Urine Protein Urine Glucose (UA) Urine Ketones Urine Blood Urine Nitrite Ur Leukocyte Esterase Urine WBC (Auto) Urine RBC (Auto) 09/30/19 09/30/19 09/30/19 00:55 01:42 01:42 WBC RBC Hgb Hct MCV MCH MCHC RDW Plt Count Seg Neutrophils % Retic Count (auto) Sodium Potassium Chloride Carbon Dioxide Anion Gap BUN Creatinine Est GFR ( Amer) Glucose Lactic Acid 2.2 H Calcium Iron TIBC % Saturation Ferritin Total Bilirubin AST Alkaline Phosphatase Total Protein Albumin Prealbumin 20.1 Triglycerides 281 H Cholesterol 98.52 LDL Cholesterol Direct 37 VLDL Cholesterol 56.2 H HDL Cholesterol 21 L Lipase Vitamin B12 Folate TSH Urine Color YELLOW Urine Appearance CLEAR Urine pH 5.0 Ur Specific [place] 1.018 Urine Protein >=500 H Urine Glucose (UA) 50 H Urine Ketones NEGATIVE Urine Blood SMALL H Urine Nitrite NEGATIVE Ur Leukocyte Esterase NEGATIVE Urine WBC (Auto) 0 Urine RBC (Auto) 1 09/30/19 09/30/19 03:14 06:34 WBC RBC Hgb Hct MCV MCH MCHC RDW Plt Count Seg Neutrophils % Retic Count (auto) Sodium Potassium Chloride Carbon Dioxide Anion Gap BUN Creatinine Est GFR ( Amer) Glucose Lactic Acid Calcium Iron 39.1 TIBC 338 % Saturation 12 Ferritin 83.20 Total Bilirubin AST Alkaline Phosphatase Total Protein Albumin Prealbumin Triglycerides Cholesterol LDL Cholesterol Direct VLDL Cholesterol HDL Cholesterol Lipase Vitamin B12 324.0 Folate 9.21 TSH 2.54 Urine Color Urine Appearance Urine pH Ur Specific [place] Urine Protein Urine Glucose (UA) Urine Ketones Urine Blood Urine Nitrite Ur Leukocyte Esterase Urine WBC (Auto) Urine RBC (Auto) Impressions: Abdomen/Pelvis CT 09/30/19 01:37 IMPRESSION: 1. Ascites and anasarca suggesting some component of volume overload and/or third spacing. 2. Splenomegaly. Assessment & Plan - Diagnosis (1) DANNI (acute kidney injury) Is this a current diagnosis for this admission?: Yes Plan: nonolguric due to urinary retention from a possible neurogenic bladder. Keep the house catheter in place, flush kidneys with saline at 125mL an hour. Follow up with labs tomorrow morning. Strict Is and Os. Possible underlining CKD with the current proteinuria and long standing diabetes. (2) Proteinuria Plan: most likely cause is poorly controlled diabetes. Follow up with labs tomorrow. (3) Urinary retention Is this a current diagnosis for this admission?: Yes Plan: possibly neurogenic in nature due to the long standing poorly controlled diabetes. CT did not show any mass or stone causing for possible obstruction. Continue with the house catheter in place. Will look to give fluids at a rate of 125mL an hour to help flush her kidneys. Follow up tomorrow. She will need to see urology once she is discharged. (4) Anasarca Is this a current diagnosis for this admission?: Yes Plan: most likely from urinary retention, will look to see how the swelling is tomorrow after she goes through the diuresis phase of post obstructive nephropathy. Other possible include nephrotic syndrome causing for a low albumin. (5) Anemia Is this a current diagnosis for this admission?: Yes Plan: per hospitalist
--- NOTE | 2019-09-30 16:57 | RADIOLOGY REPORT (SQ) ---
EXAM DESCRIPTION: CHEST SINGLE VIEW COMPLETED DATE/TIME: 09/30/2019 4:41 pm REASON FOR STUDY: dyspnea COMPARISON: 02/03/2019 EXAM PARAMETERS: NUMBER OF VIEWS: One view. TECHNIQUE: Single frontal radiographic view of the chest acquired. RADIATION DOSE: NA LIMITATIONS: None. FINDINGS: LUNGS AND PLEURA: No opacities, masses or pneumothorax. No pleural effusion. MEDIASTINUM AND HILAR STRUCTURES: No masses. Contour normal. HEART AND VASCULAR STRUCTURES: Heart size is stable. No failure. BONES: No acute findings. HARDWARE: Sternotomy wires are in place. OTHER: No other significant finding. IMPRESSION: NO ACUTE RADIOGRAPHIC FINDING IN THE CHEST. TECHNICAL DOCUMENTATION: JOB ID: [id number] 2010 [employer]- All Rights Reserved Reading location - IP/workstation name: [email or web address]
[2019-09-30] MEDS: METOCLOPRAMIDE HCL 10 MG TABLET PO SCH ×2 (17:03→22:24)
[2019-09-30] MEDS: GABAPENTIN 300 MG CAPSULE PO SCH ×2 (17:03→23:27)
[2019-09-30] MEDS: OXYCODONE HCL IR 5 MG TABLET PO PRN (17:03)
[2019-09-30] MEDS ORDERED: (PENDING PHARMACY ID) (Buspirone Hcl [Buspar 15 Mg Tablet] 7.5 MG) PO SCH (22:00)
[2019-09-30] MEDS: CARVEDILOL 3.125 MG TABLET PO SCH (22:24)
[2019-09-30] MEDS: BUSPIRONE HCL 10 MG TABLET PO SCH (22:24)
[2019-09-30] MEDS: ATORVASTATIN CALCIUM 80 MG TABLET PO SCH (22:24)
[2019-10-01 05:16] LABS: ABSOLUTE BASOPHILS # (AUTO) 0.1 10^3/uL (0.0-0.2); ABSOLUTE EOSINOPHILS # (AUTO) 0.1 10^3/uL (0.0-0.6); ABSOLUTE LYMPHOCYTES (AUTO) 1.9 10^3/uL (0.5-4.7); ABSOLUTE NEUT (AUTO) 8.3 10^3/uL (1.7-8.2); BASOPHILS % (AUTO) 0.9 % (0-2); EOSINOPHILS % (AUTO) 0.7 % (0-6); HEMATOCRIT 27.5 % (36.0-47.0); HEMOGLOBIN 8.8 g/dL (12.0-15.5); LYMPHOCYTES % (AUTO) 16.6 % (13-45); MEAN CORPUSCULAR HEMOGLOBIN 25.7 pg (27.0-33.4); MEAN CORPUSCULAR HGB CONC 31.9 g/dL (32.0-36.0); MEAN CORPUSCULAR VOLUME 80 fl (80-97); MONOCYTES % (AUTO) 9.2 % (3-13); PLATELET COUNT 267 10^3/uL (150-450); RED BLOOD COUNT 3.42 10^6/uL (3.72-5.28); RED CELL DISTRIBUTION WIDTH 18.5 % (11.5-14.0); SEGMENTED NEUTROPHILS % (AUTO) 72.6 % (42-78); TOTAL CELLS COUNTED % (AUTO) 100 %
[2019-10-01 05:40] LABS: ANION GAP 15 (5-19); BLOOD UREA NITROGEN 43 mg/dL (7-20); CALCIUM 8.4 mg/dL (8.4-10.2); CARBON DIOXIDE 14 mmol/L (22-30); CHLORIDE 106 mmol/L (98-107); GLUCOSE 176 mg/dL (75-110); POTASSIUM 5.2 mmol/L (3.6-5.0)
[2019-10-01 05:44] LABS: WHITE BLOOD COUNT 11.4 10^3/uL (4.0-10.5)
[2019-10-01] MEDS: HEPARIN SOD (PORCINE) 5,000 UNIT/ML 1 ML VIAL SUBCUT SCH ×3 (06:39→21:31)
[2019-10-01] MEDS: GABAPENTIN 300 MG CAPSULE PO SCH ×4 (06:39→23:12)
[2019-10-01] MEDS: HUM INSULIN NPH/REG INSULIN HM 100 UNIT/1 ML 3 ML SUBCUT SCH ×2 (08:59→17:16)
[2019-10-01] MEDS: INSULIN LISPRO 100 UNIT/ML 3 ML VIAL SUBCUT SCH ×3 (09:00→17:16)
[2019-10-01] MEDS: DOCUSATE SODIUM 100 MG CAPSULE PO SCH ×2 (09:01→17:17)
[2019-10-01] MEDS: METOCLOPRAMIDE HCL 10 MG TABLET PO SCH ×4 (09:03→21:36)
[2019-10-01] MEDS: BUSPIRONE HCL 10 MG TABLET PO SCH ×2 (09:03→21:35)
[2019-10-01] MEDS: ASPIRIN 81 MG TABLET, ENT COATED PO SCH (09:03)
[2019-10-01] MEDS: CARVEDILOL 3.125 MG TABLET PO SCH ×2 (09:03→21:34)
[2019-10-01] MEDS: CITALOPRAM HYDROBROMIDE 20 MG TABLET PO SCH (09:03)
[2019-10-01] MEDS: FENOFIBRATE NANOCRYSTALLIZED 145 MG TABLET PO SCH (09:03)
[2019-10-01] MEDS: PANTOPRAZOLE SODIUM 40 MG TABLET.DR PO SCH (09:03)
[2019-10-01] MEDS: LISINOPRIL 5 MG TABLET PO SCH (09:03)
[2019-10-01] MEDS: OXYCODONE HCL IR 5 MG TABLET PO PRN ×2 (09:05→21:49)
[2019-10-01] MEDS ORDERED: (PENDING PHARMACY ID) (Citalopram Hydrobromide [Celexa 40 Mg Tablet] 40 MG) PO SCH (10:00)
[2019-10-01] MEDS: FUROSEMIDE INJ/PF 20 MG/2 ML SDV IV SCH ×2 (11:35→21:31)
--- NOTE | 2019-10-01 14:36 | PDOC PROGRESS REPORT ---
Subjective Progress Note for:: 10/01/19 Subjective:: Patient was seen laying in her bed this afternoon. At the time she was doing well besides a slight increase in SOB and swelling in her legs. Unfortunately she only produced a little over 800mL of urine yesterday. Claims that since receiving the furosemide this morning she has already had the house catheter bag emptied once. Denies flank pain, fevers or chills. Reason For Visit: URINARY RETENTION DANNI RESPIRATORY FAILURE HEART Physical Exam Vital Signs: Temp Pulse Resp BP Pulse Ox 99.1 F 78 22 H 92/74 L 99 10/01/19 11:26 10/01/19 11:30 10/01/19 11:26 10/01/19 11:30 10/01/19 11:30 Intake & Output 09/30/19 10/01/19 10/02/19 06:59 06:59 06:59 Intake Total 1050 3576 200 Output Total 875 200 Balance 1050 2701 0 Weight 81.647 kg 89.2 kg General appearance: PRESENT: no acute distress, well-developed, well-nourished Mouth exam: PRESENT: moist, neck supple Neck exam: PRESENT: JVD. ABSENT: tracheal deviation Respiratory exam: PRESENT: crackles - -bases of the lungs. ABSENT: accessory muscle use, clear to auscultation amaya, rales, rhonchi, wheezes Cardiovascular exam: PRESENT: +S1, +S2 GI/Abdominal exam: PRESENT: soft. ABSENT: ascites, distended, tenderness Extremities exam: PRESENT: pedal edema, +2 edema. ABSENT: tenderness Musculoskeletal exam: PRESENT: deformity - -right leg BKA. ABSENT: tenderness Neurological exam: PRESENT: alert, awake, oriented to person, oriented to place, oriented to time Skin exam: PRESENT: dry, intact, warm. ABSENT: cyanosis Results Laboratory Results: 10/01/19 04:18 10/01/19 04:18 10/01/19 10/01/19 04:18 04:18 WBC 11.4 H RBC 3.42 L Hgb 8.8 L Hct 27.5 L MCV 80 MCH 25.7 L MCHC 31.9 L RDW 18.5 H Plt Count 267 Seg Neutrophils % 72.6 Sodium 135.0 L Potassium 5.2 H Chloride 106 Carbon Dioxide 14 L Anion Gap 15 BUN 43 H Creatinine 1.62 H Est GFR ( Amer) 41 L Glucose 176 H Calcium 8.4 09/30/19 16:26 NT-Pro-B Natriuret Pep 9910 H Impressions: Chest X-Ray 09/30/19 00:00 IMPRESSION: NO ACUTE RADIOGRAPHIC FINDING IN THE CHEST. Abdomen/Pelvis CT 09/30/19 01:37 IMPRESSION: 1. Ascites and anasarca suggesting some component of volume overload and/or third spacing. 2. Splenomegaly. Assessment & Plan - Diagnosis (1) DANNI (acute kidney injury) Is this a current diagnosis for this admission?: Yes Plan: Patient did not produce more urine despite having a house catheter placed yesterday. Looks to be producing more urine with the starting of furosemide. If the urine output is still not increased, then I recommend increasing furosemide to TID or 4x a day. Need to have strict I&Os. (2) Proteinuria Plan: awaiting labs, looks to be due to DM2 (3) Urinary retention Is this a current diagnosis for this admission?: Yes Plan: continue with house catheter. Now on furosemide. (4) Anasarca Is this a current diagnosis for this admission?: Yes Plan: starting furosemide (5) Anemia Is this a current diagnosis for this admission?: Yes Plan: patient looks to need iron, IV iron would be the fastest and recommended with a hemoglobin of 8.8. Should also improve with fluid removal
--- NOTE | 2019-10-01 18:23 | PDOC PROGRESS REPORT ---
Subjective Progress Note for:: 10/01/19 Subjective:: No adverse events overnight. She is breathing better today after some Lasix. She is able to lay down but she still has to be propped up just a little bit. She is noticed the swelling is gone down her leg some. Reason For Visit: URINARY RETENTION DANNI RESPIRATORY FAILURE HEART Physical Exam Vital Signs: Temp Pulse Resp BP Pulse Ox 99.1 F 80 22 H 92/74 L 99 10/01/19 11:26 10/01/19 14:00 10/01/19 11:26 10/01/19 11:30 10/01/19 11:30 Intake & Output 09/30/19 10/01/19 10/02/19 06:59 06:59 06:59 Intake Total 1050 3576 200 Output Total 875 200 Balance 1050 2701 0 Weight 81.647 kg 89.2 kg General appearance: PRESENT: no acute distress, cooperative, disheveled, morbidly obese Respiratory exam: PRESENT: decreased breath sounds, symmetrical, unlabored. ABSENT: accessory muscle use, chest wall tenderness, crackles, prolonged expiratory phas, retraction, rhonchi, tachypnea, wheezes Cardiovascular exam: PRESENT: RRR, +S1, +S2 Pulses: PRESENT: normal carotid pulses Vascular exam: PRESENT: normal capillary refill GI/Abdominal exam: PRESENT: normal bowel sounds, soft. ABSENT: distended, guarding, rebound, tenderness Extremities exam: PRESENT: pedal edema - Trace, +1 edema. ABSENT: clubbing Musculoskeletal exam: PRESENT: deformity - Right lower extremity BKA Neurological exam: PRESENT: alert, awake, oriented to person, oriented to place, oriented to situation Psychiatric exam: PRESENT: appropriate affect, normal mood Skin exam: PRESENT: dry, warm Results Laboratory Results: 10/01/19 04:18 10/01/19 04:18 10/01/19 10/01/19 04:18 04:18 WBC 11.4 H RBC 3.42 L Hgb 8.8 L Hct 27.5 L MCV 80 MCH 25.7 L MCHC 31.9 L RDW 18.5 H Plt Count 267 Seg Neutrophils % 72.6 Sodium 135.0 L Potassium 5.2 H Chloride 106 Carbon Dioxide 14 L Anion Gap 15 BUN 43 H Creatinine 1.62 H Est GFR ( Amer) 41 L Glucose 176 H Calcium 8.4 09/30/19 16:26 NT-Pro-B Natriuret Pep 9910 H Impressions: Chest X-Ray 09/30/19 00:00 IMPRESSION: NO ACUTE RADIOGRAPHIC FINDING IN THE CHEST. Abdomen/Pelvis CT 09/30/19 01:37 IMPRESSION: 1. Ascites and anasarca suggesting some component of volume overload and/or third spacing. 2. Splenomegaly. Assessment and Plan - Diagnosis (1) Anasarca Is this a current diagnosis for this admission?: Yes Plan: Responding well to diuretics, fluids are on hold (2) Urinary retention Is this a current diagnosis for this admission?: Yes Plan: She had a Sims catheter in place, good urine output at this time (3) DANNI (acute kidney injury) Is this a current diagnosis for this admission?: Yes Plan: Nephrology has been consulted, creatinine up just a little bit today likely as result of diuresis, watching closely (4) Acute exacerbation of CHF (congestive heart failure) Qualifiers: Heart failure type: unspecified Qualified Code(s): I50.9 - Heart failure, unspecified Is this a current diagnosis for this admission?: Yes Plan: Echocardiogram is pending, history of CHF, responding to diuresis (5) CAD (coronary artery disease), [place] coronary artery Qualifiers: [place] vs. transplanted heart: [place] heart Associated angina: without angina Qualified Code(s): I25.10 - Atherosclerotic heart disease of [place] coronary artery without angina pectoris Is this a current diagnosis for this admission?: Yes Plan: Continue home medications - Time Time Spent with patient: 15-24 minutes
[2019-10-01] MEDS: ATORVASTATIN CALCIUM 80 MG TABLET PO SCH (21:34)
[2019-10-02] MEDS: HEPARIN SOD (PORCINE) 5,000 UNIT/ML 1 ML VIAL SUBCUT SCH ×3 (05:26→22:19)
[2019-10-02] MEDS: GABAPENTIN 300 MG CAPSULE PO SCH ×3 (05:26→22:19)
[2019-10-02] MEDS: INSULIN LISPRO 100 UNIT/ML 3 ML VIAL SUBCUT SCH ×3 (08:01→17:22)
[2019-10-02] MEDS: HUM INSULIN NPH/REG INSULIN HM 100 UNIT/1 ML 3 ML SUBCUT SCH ×2 (08:01→17:22)
[2019-10-02] MEDS: METOCLOPRAMIDE HCL 10 MG TABLET PO SCH ×4 (08:02→22:19)
[2019-10-02] MEDS: OXYCODONE HCL IR 5 MG TABLET PO PRN (08:04)
[2019-10-02] MEDS: FENOFIBRATE NANOCRYSTALLIZED 145 MG TABLET PO SCH (09:03)
[2019-10-02] MEDS: PANTOPRAZOLE SODIUM 40 MG TABLET.DR PO SCH (09:03)
[2019-10-02] MEDS: CARVEDILOL 3.125 MG TABLET PO SCH (09:04)
[2019-10-02] MEDS: CITALOPRAM HYDROBROMIDE 20 MG TABLET PO SCH (09:04)
[2019-10-02] MEDS: DOCUSATE SODIUM 100 MG CAPSULE PO SCH ×2 (09:04→17:05)
[2019-10-02] MEDS: FUROSEMIDE INJ/PF 20 MG/2 ML SDV IV SCH (09:04)
[2019-10-02] MEDS: BUSPIRONE HCL 10 MG TABLET PO SCH ×2 (09:04→22:20)
[2019-10-02] MEDS: LISINOPRIL 5 MG TABLET PO SCH (09:04)
[2019-10-02] MEDS: ASPIRIN 81 MG TABLET, ENT COATED PO SCH (09:04)
[2019-10-02 10:16] LABS: APPEARANCE,URINE SLIGHTLY-CLOUDY; BILIRUBIN,URINE NEGATIVE (NEGATIVE); GLUCOSE, URINE NEGATIVE (NEGATIVE); KETONES,URINE NEGATIVE (NEGATIVE); LEUKOCYTE ESTERASE,URINE TRACE (NEGATIVE); NITRITE,URINE NEGATIVE (NEGATIVE); PROTEIN,URINE >=500 mg/dL (NEGATIVE); URINE SPECIFIC GRAVITY 1.016; UROBILINOGEN,URINE NEGATIVE mg/dL (<2.0)
[2019-10-02 10:17] LABS: ADD MANUAL MICROSCOPIC YES; COLOR,URINE DARK YELLOW
--- NOTE | 2019-10-02 10:20 | XCELERA REPORT ---
[address] [address] Transthoracic Echocardiogram Report Name: HELDER SERNA Age: 49 yrs Gender: Female : 1970 Patient Status: Inpatient Patient Location: [facility]^A Study Date: 10/01/2019 06:23 PM Height: 62 in Weight: 196 lb BSA: 1.9 m2 Procedure: A complete two-dimensional transthoracic echocardiogram was performed (2D, M-mode, spectral and color flow Doppler). The study was technically adequate with some images being suboptimal in quality. Reason For Study: chf Ordering Physician: MARISOL CHOWDARY Performed By: Denisa Yoon Interpretation Summary LV EF is 40-45% Doppler measurements suggest pseudonormalized left ventricular relaxation, which is associated with grade II/IV or mild to moderate diastolic dysfunction There is mild concentric left ventricular hypertrophy. The left ventricle is grossly normal size. Regional wall motion abnormalities cannot be excluded due to limited visualization. Not all wall segments were well visualized. The right ventricle is borderline dilated. The left atrium is mildly dilated. Borderline right atrial enlargement. There is a trace amount of mitral regurgitation There is no mitral valve stenosis. No aortic regurgitation is present. There is no aortic valve stenosis There is a mild to moderate amount of tricuspid regurgitation There is mild pulmonary hypertension by echo Best estimated RVSP is approximately 40-45 mm/Hg. The aortic root is not well visualized but is probably normal size. The inferior vena cava appeared normal and decreased < 50% with respiration (RAP 10-15 mmHg) There is no pericardial effusion. MMode/2D Measurements & Calculations RVDd: 3.4 cm LVIDd: 5.1 cm FS: 21.9 % Ao root diam: 2.6 cm IVSd: 1.2 cm LVIDs: 4.0 cm EDV(Teich): 124.8 ml Ao root area: 5.3 cm2 LVPWd: 0.88 cm ESV(Teich): 69.9 ml LA dimension: 4.1 cm EF(Teich): 44.0 % Doppler Measurements & Calculations MV E max juan: MV P1/2t max juan: Ao V2 max: LV V1 max P.5 cm/sec 126.1 cm/sec 123.9 cm/sec 3.8 mmHg MV A max juan: MV P1/2t: 48.3 msec Ao max P.1 mmHgLV V1 max: 65.2 cm/sec MVA(P1/2t): 4.6 cm2 97.9 cm/sec MV E/A: 1.8 MV dec slope: 765.4 cm/sec2 MV dec time: 0.20 sec PA V2 max: TR max juan: MV P1/2t-pr_phl: 60.7 cm/sec 276.3 cm/sec 48.3 msec PA max P.5 mmHg TR max P.5 mmHg Left Ventricle The left ventricle is grossly normal size. There is mild concentric left ventricular hypertrophy. LV EF is 40-45%. Doppler measurements suggest pseudonormalized left ventricular relaxation, which is associated with grade II/IV or mild to moderate diastolic dysfunction. Regional wall motion abnormalities cannot be excluded due to limited visualization. Not all wall segments were well visualized. Right Ventricle The right ventricle is borderline dilated. Right ventricular function cannot be assessed due to poor image quality. Atria Borderline right atrial enlargement. The left atrium is mildly dilated. Interarterial septum not well visualized and not well dopplered. Cannot comment on ASD/PFO presence. Mitral Valve The mitral valve is grossly normal. There is no mitral valve stenosis. There is a trace amount of mitral regurgitation. Aortic Valve The aortic valve opens well. There is no aortic valve stenosis. No aortic regurgitation is present. Tricuspid Valve The tricuspid valve is not well visualized secondary to technical limitations. There is no tricuspid stenosis. There is a mild to moderate amount of tricuspid regurgitation. There is mild pulmonary hypertension by echo. Best estimated RVSP is approximately 40-45 mm/Hg. Pulmonic Valve The pulmonic valve is not well visualized. Great Vessels The aortic root is not well visualized but is probably normal size. The inferior vena cava appeared normal and decreased < 50% with respiration (RAP 10-15 mmHg). Effusions There is no pericardial effusion. : MARISOL CHOWDARY Shyamal
[2019-10-02 10:23] LABS: BACTERIA,URINE 2+ /HPF
[2019-10-02 11:47] LABS: URINE CREATININE 172.6 mg/dL (15-278)
[2019-10-02 11:58] LABS: UR PRO/CREAT RATIO RESULT 3.1 mg/mg (0.0-0.2); URINE PROTEIN 540.2 mg/dL (<12)
[2019-10-02 12:05] LABS: ABSOLUTE BASOPHILS # (AUTO) 0.1 10^3/uL (0.0-0.2); ABSOLUTE EOSINOPHILS # (AUTO) 0.2 10^3/uL (0.0-0.6); ABSOLUTE LYMPHOCYTES (AUTO) 2.4 10^3/uL (0.5-4.7); ABSOLUTE MONOCYTES (AUTO) 1.1 10^3/uL (0.1-1.4); ABSOLUTE NEUT (AUTO) 9.2 10^3/uL (1.7-8.2); BASOPHILS % (AUTO) 0.8 % (0-2); EOSINOPHILS % (AUTO) 1.2 % (0-6); LYMPHOCYTES % (AUTO) 18.4 % (13-45); MEAN CORPUSCULAR HEMOGLOBIN 25.2 pg (27.0-33.4); MEAN CORPUSCULAR HGB CONC 31.2 g/dL (32.0-36.0); MEAN CORPUSCULAR VOLUME 81 fl (80-97); MONOCYTES % (AUTO) 8.7 % (3-13); PLATELET COUNT 311 10^3/uL (150-450); RED BLOOD COUNT 3.58 10^6/uL (3.72-5.28); RED CELL DISTRIBUTION WIDTH 18.9 % (11.5-14.0); SEGMENTED NEUTROPHILS % (AUTO) 70.9 % (42-78); TOTAL CELLS COUNTED % (AUTO) 100 %
[2019-10-02 12:25] LABS: ALBUMIN 3.7 g/dL (3.5-5.0); ALKALINE PHOSPHATASE 159 U/L (38-126); ANION GAP 15 (5-19); ASPARTATE AMINO TRANSFERASE 91 U/L (14-36); BILIRUBIN,DIRECT 0.2 mg/dL (0.0-0.4); BILIRUBIN,TOTAL 0.6 mg/dL (0.2-1.3); BLOOD UREA NITROGEN 52 mg/dL (7-20); CALCIUM 8.8 mg/dL (8.4-10.2); CARBON DIOXIDE 17 mmol/L (22-30); CHLORIDE 103 mmol/L (98-107); GLUCOSE 173 mg/dL (75-110); TOTAL PROTEIN 6.9 g/dL (6.3-8.2)
[2019-10-02 12:27] LABS: POTASSIUM 6.1 mmol/L (3.6-5.0)
[2019-10-02] MEDS ORDERED: CALCIUM GLUCONATE 1000 MG/10 ML INJ IV ONE (13:48)
[2019-10-02] MEDS ORDERED: CALCIUM GLUCONATE 1 GM/NS 50 ML RTU IV ONE (14:00)
[2019-10-02] MEDS ORDERED: SODIUM POLYSTYRENE SULFONATE 15 GM/60 ML PO ONE (14:00)
--- NOTE | 2019-10-02 15:30 | RADIOLOGY REPORT (SQ) ---
EXAM DESCRIPTION: CHEST 2 VIEWS COMPLETED DATE/TIME: 10/02/2019 3:03 pm REASON FOR STUDY: possible pneumonia COMPARISON: 09/30/2019 NUMBER OF VIEWS: Two view. TECHNIQUE: Frontal and lateral radiographic views of the chest acquired. LIMITATIONS: None. FINDINGS: LUNGS AND PLEURA: No opacities, masses or pneumothorax. No pleural effusion. MEDIASTINUM AND HILAR STRUCTURES: No masses. No contour abnormalities. HEART AND VASCULAR STRUCTURES: Heart enlarged without failure. Aorta normal for age. BONES: No acute findings. HARDWARE: CABG. OTHER: No other significant finding. IMPRESSION: No acute findings in the chest. TECHNICAL DOCUMENTATION: JOB ID: [id number] 2010 [employer]- All Rights Reserved Reading location - IP/workstation name: [email or web address]
--- NOTE | 2019-10-02 16:09 | PDOC PROGRESS REPORT ---
Subjective Progress Note for:: 10/02/19 Subjective:: No adverse events overnight. No new complaints. Vital signs been stable. She has been breathing comfortably. Good urine output. Reason For Visit: URINARY RETENTION DANNI RESPIRATORY FAILURE HEART Physical Exam Vital Signs: Temp Pulse Resp BP Pulse Ox 98.3 F 76 18 114/70 97 10/02/19 11:42 10/02/19 14:00 10/02/19 11:42 10/02/19 11:42 10/02/19 11:42 Intake & Output 10/01/19 10/02/19 10/03/19 06:59 06:59 06:59 Intake Total 3576 796 Output Total 875 480 Balance 2701 316 Weight 89.2 kg 89.2 kg General appearance: PRESENT: no acute distress, cooperative, disheveled, morbidly obese Respiratory exam: PRESENT: decreased breath sounds, symmetrical, unlabored. ABSENT: accessory muscle use, chest wall tenderness, crackles, prolonged expiratory phas, retraction, rhonchi, tachypnea, wheezes Cardiovascular exam: PRESENT: RRR, +S1, +S2 Pulses: PRESENT: normal carotid pulses Vascular exam: PRESENT: normal capillary refill GI/Abdominal exam: PRESENT: normal bowel sounds, soft. ABSENT: distended, guarding, rebound, tenderness Extremities exam: PRESENT: pedal edema - Trace, +1 edema. ABSENT: clubbing Musculoskeletal exam: PRESENT: deformity - Right lower extremity BKA Neurological exam: PRESENT: alert, awake, oriented to person, oriented to place, oriented to situation Psychiatric exam: PRESENT: appropriate affect, normal mood Skin exam: PRESENT: dry, warm Results Laboratory Results: 10/02/19 11:20 10/02/19 11:20 10/02/19 10/02/19 10/02/19 10:03 11:20 11:20 WBC 13.0 H RBC 3.58 L Hgb 9.0 L Hct 29.0 L MCV 81 MCH 25.2 L MCHC 31.2 L RDW 18.9 H Plt Count 311 Seg Neutrophils % 70.9 Sodium 134.6 L Potassium 6.1 H* Chloride 103 Carbon Dioxide 17 L Anion Gap 15 BUN 52 H Creatinine 2.89 H Est GFR ( Amer) 21 L Glucose 173 H Calcium 8.8 Total Bilirubin 0.6 AST 91 H Alkaline Phosphatase 159 H Total Protein 6.9 Albumin 3.7 Urine Color DARK YELLOW Urine Appearance SLIGHTLY-CLOUDY Urine pH 5.0 Ur Specific [place] 1.016 Urine Protein >=500 H Urine Glucose (UA) NEGATIVE Urine Ketones NEGATIVE Urine Blood NEGATIVE Urine Nitrite NEGATIVE Ur Leukocyte Esterase TRACE H Ur Squamous Epith Cells FEW 09/30/19 16:26 NT-Pro-B Natriuret Pep 9910 H Impressions: Abdomen/Pelvis CT 09/30/19 01:37 IMPRESSION: 1. Ascites and anasarca suggesting some component of volume overload and/or third spacing. 2. Splenomegaly. Chest X-Ray 10/02/19 13:47 IMPRESSION: No acute findings in the chest. Assessment and Plan - Diagnosis (1) Anasarca Is this a current diagnosis for this admission?: Yes Plan: Centrally resolved. Lasix has been discontinued and put back on her home dose (2) Urinary retention Is this a current diagnosis for this admission?: Yes Plan: She had a Sims catheter in place, good urine output at this time (3) DANNI (acute kidney injury) Is this a current diagnosis for this admission?: Yes Plan: Creatinine has worsened since yesterday. She is off of diuretics now. Potassium was elevated and she is gotten a dose of Kayexalate. Nephrology has been consulted. (4) Acute exacerbation of CHF (congestive heart failure) Qualifiers: Heart failure type: unspecified Qualified Code(s): I50.9 - Heart failure, unspecified Is this a current diagnosis for this admission?: Yes Plan: Echocardiogram shows EF 40 to 45%, grade 2 diastolic dysfunction, RVSP 40 to 45 mmHg, she is been put back on her home Lasix will evaluate patient list for optimization (5) CAD (coronary artery disease), [place] coronary artery Qualifiers: [place] vs. transplanted heart: [place] heart Associated angina: without angina Qualified Code(s): I25.10 - Atherosclerotic heart disease of [place] coronary artery without angina pectoris Is this a current diagnosis for this admission?: Yes Plan: Continue home medications - Time Time Spent with patient: 15-24 minutes
[2019-10-02] MEDS ORDERED: NORMAL SALINE 1000 ML 1,000 ML IV PRN (17:01)
--- NOTE | 2019-10-02 17:51 | PDOC PROGRESS REPORT ---
Subjective Progress Note for:: 10/02/19 Subjective:: I came to see the patient to reevaluate her kidney function. She was initially seen in consultation by Segundo Moreno PA-C . Patient has history of diabetes mellitus type 2, coronary artery disease status post CABG x3, peripheral vascular disease, status post right BKA after what it appears like some arterial occlusion post CABG, obstructive sleep apnea, atrial fibrillation, chronic phantom limb pain on chronic pain medications, and an episode of DANNI requiring hemodialysis for 6 weeks in 2017 due to medications per patient while she was in [facility]. Patient was admitted dip [place] yesterday because of inability and difficult urination for 2 to 3 days associated with lower abdominal pain. Patient states that she did have some nausea and vomiting but denies any diarrhea, cough, cold symptoms or fever. She states that she has decreased appetite for the last few days. She reports leg swelling for about a week. Initial evaluation in the emergency room showed urinary retention with 500 mL of urine obtained after straight cath. Sims catheter was inserted yesterday. A CT scan of the abdomen and pelvis showed no hydronephrosis or bladder outlet obstruction but did show some ascites, anasarca and splenomegaly. Upon presentation patient received about 3.5 to 4 L of IV fluids. She was then restarted on her Lasix 20 mg IV every 12 hours yesterday. Her urine output on the first 24 hours was 875 mL but this decreased to 480 mL for the past 24 hours. Patient has not really been awake enough to eat and drink. Her intake is very minimal to about 796 mL for the past 24 hours. She is taking a lot of medications that could impair her wakefulness including oxycodone, gabapentin, and buspirone. She takes this medications for her chronic pain. In terms of her kidney function she came in with a BUN of 40, creatinine of 1.86 and EGFR of 29. Review of records revealed that her baseline creatinine ranges anywhere between 1.03-1.3 with EGFR around 40 to 50s. Yesterday she had a BUN of 43 and creatinine of 1.62. Today she has a BUN of 52, creatinine of 2.89, potassium of 6.1 and bicarbonate of 17. She is also anemic with hemoglobin of 9, iron saturation of only 12 and ferritin of 83.2. Her liver enzymes is also mildly elevated. When I talked to the patient today she was so somnolent and barely wakes up to answer questions. She is very slow to respond dosing of in between questions. He seems comfortable and does not appear to be short of breath. Reason For Visit: URINARY RETENTION DANNI RESPIRATORY FAILURE HEART Physical Exam Vital Signs: Temp Pulse Resp BP Pulse Ox 98.3 F 76 18 114/70 97 10/02/19 11:42 10/02/19 14:00 10/02/19 11:42 10/02/19 11:42 10/02/19 11:42 Intake & Output 10/01/19 10/02/19 10/03/19 06:59 06:59 06:59 Intake Total 3576 796 Output Total 875 480 Balance 2701 316 Weight 89.2 kg 89.2 kg Exam: General appearance: PRESENT: no acute distress, cooperative, somnolent but answering questions very slowly Head exam: PRESENT: atraumatic, normocephalic Eye exam: PRESENT: conjunctiva pale, PERRLA. ABSENT: scleral icterus Neck exam: ABSENT: JVD Respiratory exam: PRESENT: Normal breath sounds. ABSENT: crackles, rales, rhonchi, unlabored, wheezes Cardiovascular exam: PRESENT: Regular rate rhythm -+S1, +S2. ABSENT: diastolic murmur, systolic murmur GI/Abdominal exam: PRESENT: normal bowel sounds, soft. Distended abdomen with mild subcutaneous edema ABSENT: guarding, mass, tenderness Extremities exam: Right BKA, positive anasarca with grade 3 lower extremity edema and some upper extremity edema Neurological exam: PRESENT: Somnolent butarousable. Skin exam: PRESENT: dry, warm, Cardiovascular exam: PRESENT: +S1, +S2 GI/Abdominal exam: PRESENT: soft. ABSENT: ascites, distended, tenderness Results Laboratory Results: 10/02/19 11:20 10/02/19 11:20 10/02/19 10/02/19 10/02/19 10:03 11:20 11:20 WBC 13.0 H RBC 3.58 L Hgb 9.0 L Hct 29.0 L MCV 81 MCH 25.2 L MCHC 31.2 L RDW 18.9 H Plt Count 311 Seg Neutrophils % 70.9 Sodium 134.6 L Potassium 6.1 H* Chloride 103 Carbon Dioxide 17 L Anion Gap 15 BUN 52 H Creatinine 2.89 H Est GFR ( Amer) 21 L Glucose 173 H Calcium 8.8 Total Bilirubin 0.6 AST 91 H Alkaline Phosphatase 159 H Total Protein 6.9 Albumin 3.7 Urine Color DARK YELLOW Urine Appearance SLIGHTLY-CLOUDY Urine pH 5.0 Ur Specific [place] 1.016 Urine Protein >=500 H Urine Glucose (UA) NEGATIVE Urine Ketones NEGATIVE Urine Blood NEGATIVE Urine Nitrite NEGATIVE Ur Leukocyte Esterase TRACE H Ur Squamous Epith Cells FEW 09/30/19 16:26 NT-Pro-B Natriuret Pep 9910 H Impressions: Abdomen/Pelvis CT 09/30/19 01:37 IMPRESSION: 1. Ascites and anasarca suggesting some component of volume overload and/or third spacing. 2. Splenomegaly. Chest X-Ray 10/02/19 13:47 IMPRESSION: No acute findings in the chest. Assessment & Plan - Diagnosis (1) Acute kidney injury superimposed on chronic kidney disease Is this a current diagnosis for this admission?: Yes Plan: The patient is currently oliguric. Although the patient has anasarca I think th e patient could be intravascularly volume depleted with concomitant hypotension and poor oral fluid intake. No evidence of hydronephrosis on CT scan. I will start the patient on cautious IV fluids with normal saline at 125 mL an hour and discontinue the Lasix for now. Continue monitoring of strict intake and output. Will monitor kidney function. Avoid nephrotoxic medications. Patient does not need any urgent acute renal replacement therapy at this time. (2) Hyperkalemia Is this a current diagnosis for this admission?: Yes Plan: Due to DANNI. Patient was given IV calcium gluconate and Kayexalate by Segundo Moreno PA-C. (3) Hypotension Is this a current diagnosis for this admission?: Yes Plan: Likely due to intravascular volume depletion. Lisinopril was discontinued. Coreg will be placed on hold. (4) Metabolic acidosis Is this a current diagnosis for this admission?: Yes Plan: Mild. Due to DANNI. Sodium bicarbonate orally started. (5) Hyponatremia Is this a current diagnosis for this admission?: Yes Plan: Due to poor oral intake and intravascular volume depletion. (6) Proteinuria Is this a current diagnosis for this admission?: Yes Plan: She has urine protein to creatinine ratio of 3.1. High likelihood of diabetic nephropathy. I will check serum protein electrophoresis. (7) Anasarca Is this a current diagnosis for this admission?: Yes Plan: Possibly due to nephrotic range proteinuria even though the patient's albumin is within normal limits. Also needs to rule out liver pathology in the presence of splenomegaly. (8) Chronic pain Is this a current diagnosis for this admission?: Yes Plan: Chronic phantom limb pain on chronic pain medications. Due to the patient's worsening kidney function and increasing somnolence I would change her gabapentin to just 300 mg nightly and may need to be discontinued if necessary, I will also decrease her oxycodone to 10 mg every 12 hours only. (9) Splenomegaly Is this a current diagnosis for this admission?: Yes Plan: We will check hepatitis panel. Might need hematology consult. (10) Anemia Is this a current diagnosis for this admission?: Yes Plan: Patient has iron deficiency and underlying chronic kidney disease. Start oral iron. (11) Urinary retention Is this a current diagnosis for this admission?: Yes Plan: Keep indwelling Sims catheter for now. (12) Congestive heart failure Is this a current diagnosis for this admission?: Yes Plan: Echocardiogram showed LVEF of 40 to 45%, grade 2/4 moderate diastolic dysfunction. Currently compensated. (13) Diabetes mellitus type 2 in obese Is this a current diagnosis for this admission?: Yes Plan: Uncontrolled with hemoglobin A1c of 7.9. - Time Time with patient: Greater than 35 minutes
--- NOTE | 2019-10-02 19:03 | EKG REPORT ---
SEVERITY:- ABNORMAL ECG - SINUS RHYTHM NONSPECIFIC INTRAVENTRICULAR CONDUCTION DELAY BORDERLINE ST DEPRESSION, ANTEROLATERAL LEADS : Confirmed by: Sal Solis 02-Oct-2019 19:02:01
[2019-10-02] MEDS: ATORVASTATIN CALCIUM 80 MG TABLET PO SCH (22:19)
[2019-10-02] MEDS: SODIUM BICARBONATE 650 MG TABLET PO SCH (22:24)
[2019-10-03] MEDS: HEPARIN SOD (PORCINE) 5,000 UNIT/ML 1 ML VIAL SUBCUT SCH ×3 (05:04→22:14)
[2019-10-03 06:13] LABS: HEMATOCRIT 25.8 % (36.0-47.0); HEMOGLOBIN 8.2 g/dL (12.0-15.5); MEAN CORPUSCULAR HEMOGLOBIN 25.5 pg (27.0-33.4); MEAN CORPUSCULAR HGB CONC 31.9 g/dL (32.0-36.0); MEAN CORPUSCULAR VOLUME 80 fl (80-97); PLATELET COUNT 256 10^3/uL (150-450); RED BLOOD COUNT 3.23 10^6/uL (3.72-5.28); RED CELL DISTRIBUTION WIDTH 19.1 % (11.5-14.0); WHITE BLOOD COUNT 8.5 10^3/uL (4.0-10.5)
[2019-10-03 06:37] LABS: ALBUMIN 3.1 g/dL (3.5-5.0); ALKALINE PHOSPHATASE 174 U/L (38-126); ANION GAP 15 (5-19); ASPARTATE AMINO TRANSFERASE 72 U/L (14-36); BILIRUBIN,DIRECT 0.1 mg/dL (0.0-0.4); BILIRUBIN,TOTAL 0.4 mg/dL (0.2-1.3); BLOOD UREA NITROGEN 57 mg/dL (7-20); CALCIUM 8.4 mg/dL (8.4-10.2); CARBON DIOXIDE 18 mmol/L (22-30); CHLORIDE 103 mmol/L (98-107); GLUCOSE 154 mg/dL (75-110); TOTAL PROTEIN 6.3 g/dL (6.3-8.2)
[2019-10-03 06:45] LABS: POTASSIUM 5.1 mmol/L (3.6-5.0)
[2019-10-03 07:34] LABS: ABSOLUTE MONOCYTES # (MANUAL) 0.7 10^3/uL (0.1-1.4); ANISOCYTOSIS 2+; BASOPHILS % (MANUAL) 0 % (0-2); EOSINOPHILS % (MANUAL) 0 % (0-6); HYPOCHROMASIA SLIGHT; LYMPHOCYTES % (MANUAL) 23 % (13-45); MONOCYTES % (MANUAL) 8 % (3-13); NUCLEATED RED BLOOD CELLS 4 /100 WBC (0); POLYCHROMASIA SLIGHT; SEGMENTED NEUTROPHILS % (MAN) 69 % (42-78); TOTAL CELLS COUNTED 100
[2019-10-03 07:35] LABS: BURR CELLS SLIGHT; OVALOCYTES SLIGHT; PLATELET COMMENT ADEQUATE; POIKILOCYTOSIS 1+; TEAR DROP CELLS SLIGHT
[2019-10-03] MEDS: METOCLOPRAMIDE HCL 10 MG TABLET PO SCH ×4 (07:59→22:12)
[2019-10-03] MEDS: HUM INSULIN NPH/REG INSULIN HM 100 UNIT/1 ML 3 ML SUBCUT SCH ×2 (07:59→17:16)
[2019-10-03] MEDS: INSULIN LISPRO 100 UNIT/ML 3 ML VIAL SUBCUT SCH ×3 (07:59→17:15)
[2019-10-03] MEDS: ASPIRIN 81 MG TABLET, ENT COATED PO SCH (09:39)
[2019-10-03] MEDS: CITALOPRAM HYDROBROMIDE 20 MG TABLET PO SCH (09:39)
[2019-10-03] MEDS: BUSPIRONE HCL 10 MG TABLET PO SCH ×3 (09:42→22:12)
[2019-10-03] MEDS: FERROUS SULFATE 325 MG TABLET PO SCH (09:43)
[2019-10-03] MEDS: SODIUM BICARBONATE 650 MG TABLET PO SCH ×2 (09:43→22:12)
[2019-10-03] MEDS: PANTOPRAZOLE SODIUM 40 MG TABLET.DR PO SCH (09:43)
[2019-10-03] MEDS: FENOFIBRATE NANOCRYSTALLIZED 145 MG TABLET PO SCH (09:44)
[2019-10-03] MEDS: DOCUSATE SODIUM 100 MG CAPSULE PO SCH ×2 (09:44→17:19)
[2019-10-03] MEDS ORDERED: FUROSEMIDE 20 MG TABLET PO SCH (10:00)
[2019-10-03] MEDS ORDERED: NORMAL SALINE 1000 ML 1,000 ML IV PRN (10:39)
[2019-10-03] MEDS ORDERED: HEPARIN SOD (PORCINE) 1,000 UNIT/ML 10 ML VIAL IV PRN (10:39)
--- NOTE | 2019-10-03 11:50 | Operative Report ---
Nonrecallable Operative Report DATE OF SURGERY: 10/03/19 PREOPERATIVE DIAGNOSIS: renal failure POSTOPERATIVE DIAGNOSIS: renal failure OPERATION: dialysis catheter insertion SURGEON: KIMBERLY ROD ANESTHESIA: Local TISSUE REMOVED OR ALTERED: none COMPLICATIONS: none ESTIMATED BLOOD LOSS: 25cc INTRAOPERATIVE FINDINGS: see note PROCEDURE: Patient was seen in her hospital bed for the procedure. Procedure note after appropriate timeout and site verification appropriate consent the right groin was prepped and draped in usual sterile fashion. Using the ultrasound to identify the femoral vein the area over the femoral vein was then anesthetized with 1% lidocaine plain. 16-gauge needle was used to access the femoral vein. The J-wire was placed in through the needle into the iliac vein and superior vena cava. The needle was removed. A small risa was made in the skin with a 11 blade and then the serial dilators were utilized over the wire. Once we dilated the tract the triple-lumen dialysis catheter was placed into the femoral vein and threaded up into the inferior vena cava. The catheter was then fixed to the skin with 3-0 nylon suture. The third flushed and withdrew easily. A sterile dressing was applied. Patient tolerated procedure well. Estimated blood loss was 50 cc.
[2019-10-03] MEDS: ALBUMIN HUMAN 25 GM/100 ML RTUINJ IV SCH ×2 (13:35→14:16)
--- NOTE | 2019-10-03 14:40 | PDOC PROGRESS REPORT ---
Subjective Progress Note for:: 10/03/19 Subjective:: I saw the patient is morning in her room. She is more awake and communicating very well today after I have made adjustments in her medications. Unfortunately though she has not have any improved urine output at all despite the IV fluids since yesterday. She only made about 205 mL of urine output. She continues to have anasarca. She failed IV fluids and diuretics with Lasix. Her kidney function continues to get worse. Use the above I think the patient would benefit with early intervention with renal replacement therapy to hopefully induce the kidney for recovery. I went ahead and talk to the patient is morning regarding acute renal replacement therapy and explained to her the procedure, benefits and risks. Patient is well aware of dialysis since she was on dialysis in 2017 for 6 weeks. She agreed to proceed. I consulted Dr. Salinas to place a temporary dialysis catheter which he did. I also discussed this with Dr. Ortega who is in agreement with the plan as well. This afternoon at 1:42 PM I am seeing the patient during dialysis treatment. She looks good and has no new complaints. We are giving her albumin during the first 30 minutes of her treatment so we can do some ultrafiltration. She is so far tolerating dialysis showed the newly placed right femoral dialysis catheter. She is being monitored closely. Reason For Visit: URINARY RETENTION DANNI RESPIRATORY FAILURE HEART Physical Exam Vital Signs: Temp Pulse Resp BP Pulse Ox 97.4 F 77 18 115/88 H 100 10/03/19 03:40 10/03/19 06:38 10/03/19 03:40 10/03/19 03:40 10/03/19 03:40 Intake & Output 10/02/19 10/03/19 10/04/19 06:59 06:59 06:59 Intake Total 796 2154 1000 Output Total 480 205 Balance 316 1949 1000 Weight 89.2 kg 88.6 kg Vitals during dialysis: Blood pressure 108/61, heart rate of 86, blood flow rate of 250 mL/min and dialysate flow rate of 600 mL/min. Exam: General appearance: PRESENT: no acute distress, cooperative, well-developed, well-nourished Head exam: PRESENT: atraumatic, normocephalic Eye exam: PRESENT: conjunctiva pale, PERRLA. ABSENT: scleral icterus Neck exam: ABSENT: JVD Respiratory exam: PRESENT: Diminished breath sounds. ABSENT: crackles, rales, rhonchi, unlabored, wheezes Cardiovascular exam: PRESENT: Regular rate rhythm -+S1, +S2. ABSENT: diastolic murmur, systolic murmur GI/Abdominal exam: PRESENT: normal bowel sounds, soft. Abdomen still distended with subcutaneous edema ABSENT: guarding, mass, tenderness Extremities exam: Positive anasarca with tight and grade 3 bilateral lower extremity pitting edema as well as upper extremity edema with abdominal subcutaneous edema Neurological exam: PRESENT: alert, awake, oriented to person, place and time. Skin exam: PRESENT: dry, warm, Cardiovascular exam: PRESENT: +S1, +S2 GI/Abdominal exam: PRESENT: soft. ABSENT: ascites, distended, tenderness Results Laboratory Results: 10/03/19 05:36 10/03/19 05:36 10/02/19 10/02/19 10/03/19 11:20 11:20 05:36 WBC 13.0 H 8.5 RBC 3.58 L 3.23 L Hgb 9.0 L 8.2 L Hct 29.0 L 25.8 L MCV 81 80 MCH 25.2 L 25.5 L MCHC 31.2 L 31.9 L RDW 18.9 H 19.1 H Plt Count 311 256 Seg Neutrophils % 70.9 Not Reportable Sodium 134.6 L Potassium 6.1 H* Chloride 103 Carbon Dioxide 17 L Anion Gap 15 BUN 52 H Creatinine 2.89 H Est GFR ( Amer) 21 L Glucose 173 H Calcium 8.8 Total Bilirubin 0.6 AST 91 H Alkaline Phosphatase 159 H Total Protein 6.9 Albumin 3.7 10/03/19 05:36 WBC RBC Hgb Hct MCV MCH MCHC RDW Plt Count Seg Neutrophils % Sodium 136.0 L Potassium 5.1 H D Chloride 103 Carbon Dioxide 18 L Anion Gap 15 BUN 57 H Creatinine 3.02 H Est GFR ( Amer) 20 L Glucose 154 H Calcium 8.4 Total Bilirubin 0.4 AST 72 H Alkaline Phosphatase 174 H Total Protein 6.3 Albumin 3.1 L 09/30/19 16:26 NT-Pro-B Natriuret Pep 9910 H Impressions: Abdomen/Pelvis CT 09/30/19 01:37 IMPRESSION: 1. Ascites and anasarca suggesting some component of volume overload and/or third spacing. 2. Splenomegaly. Chest X-Ray 10/02/19 13:47 IMPRESSION: No acute findings in the chest. Assessment & Plan - Diagnosis (1) Acute kidney injury superimposed on chronic kidney disease Is this a current diagnosis for this admission?: Yes Plan: The patient is continues to be oliguric. Patient most likely has developed some sort of acute tubular necrosis with hypotensive episodes 2 days ago. No evidence of hydronephrosis on CT scan. Patient has failed diuretics and IV fluids to attain any renal recovery so we will do early intervention with acute renal replacement therapy as mentioned above. Patient consented for treatment. We will do dialysis today for 2.5 hours, using the patient's temporary right femoral dialysis catheter, with 2 potassium bath, blood flow rate of 250 mL per minute, dialysate flow rate of 6 mL per minute, ultrafiltration 2 to 2.5 L as tolerated, no heparin and no Procrit. Patient will receive IV albumin, 25 g during the first hour of hemodialysis. Discussed treatment plan with our dialysis nurse will be monitoring the patient continuously throughout dialysis treatment. Continue to monitor kidney function on the weekend. I will reevaluate on Sunday to see if she needs further dialysis treatment. (2) Hyperkalemia Is this a current diagnosis for this admission?: Yes Plan: Due to DANNI. Slightly improved but still elevated. Dialysis today will help. (3) Hypotension Is this a current diagnosis for this admission?: Yes Plan: Likely due to intravascular volume depletion. Lisinopril was discontinued. Coreg will be placed on hold. (4) Metabolic acidosis Is this a current diagnosis for this admission?: Yes Plan: Mild. Due to DANNI. Sodium bicarbonate orally started. Depending on how she responds with dialysis, will reevaluate need for oral sodium bicarbonate. (5) Hyponatremia Is this a current diagnosis for this admission?: Yes Plan: Due to poor oral intake and intravascular volume depletion. Improved. (6) Proteinuria Is this a current diagnosis for this admission?: Yes Plan: She has urine protein to creatinine ratio of 3.1. High likelihood of diabetic nephropathy. I will check serum protein electrophoresis, currently pending. (7) Anasarca Is this a current diagnosis for this admission?: Yes Plan: Possibly due to nephrotic range proteinuria . Also needs to rule out liver pathology in the presence of splenomegaly. (8) Hypoalbuminemia Is this a current diagnosis for this admission?: Yes Plan: I will give IV albumin during dialysis today. (9) Chronic pain Is this a current diagnosis for this admission?: Yes Plan: Chronic limb pain on her right stump and low back pain on chronic pain medicat ions. Due to the patient's worsening kidney function and increasing somnolence I change her gabapentin to just 300 mg nightly and may need to be discontinued if necessary, I will also decrease her oxycodone to 10 mg every 12 hours only. (10) Splenomegaly Is this a current diagnosis for this admission?: Yes Plan: We will check hepatitis panel. Might need hematology consult. Discussed this with Dr. Ortega. (11) Anemia Is this a current diagnosis for this admission?: Yes Plan: Patient has iron deficiency and underlying chronic kidney disease. Start oral iron. (12) Urinary retention Is this a current diagnosis for this admission?: Yes Plan: Keep indwelling Sims catheter for now. (13) Congestive heart failure Is this a current diagnosis for this admission?: Yes Plan: Echocardiogram showed LVEF of 40 to 45%, grade 2/4 moderate diastolic dysfunction. Currently compensated. (14) Diabetes mellitus type 2 in obese Is this a current diagnosis for this admission?: Yes Plan: Uncontrolled with hemoglobin A1c of 7.9. - Time Time with patient: Greater than 35 minutes
--- NOTE | 2019-10-03 16:42 | PDOC PROGRESS REPORT ---
Subjective Progress Note for:: 10/03/19 Subjective:: No adverse events overnight. No new complaints. Vital signs been stable. Her breathing is felt comfortable. Dr. Blevins has decided she is going to need dialysis. Reason For Visit: URINARY RETENTION DANNI RESPIRATORY FAILURE HEART Physical Exam Vital Signs: Temp Pulse Resp BP Pulse Ox 98.1 F 82 18 113/70 100 10/03/19 12:08 10/03/19 13:57 10/03/19 12:08 10/03/19 12:08 10/03/19 12:08 Intake & Output 10/02/19 10/03/19 10/04/19 06:59 06:59 06:59 Intake Total 796 2154 2426 Output Total 480 205 245 Balance 316 1949 2181 Weight 89.2 kg 88.6 kg General appearance: PRESENT: no acute distress, cooperative, disheveled, morbidly obese Respiratory exam: PRESENT: decreased breath sounds, symmetrical, unlabored. ABSENT: accessory muscle use, chest wall tenderness, crackles, prolonged expiratory phas, retraction, rhonchi, tachypnea, wheezes Cardiovascular exam: PRESENT: RRR, +S1, +S2 Pulses: PRESENT: normal carotid pulses Vascular exam: PRESENT: normal capillary refill GI/Abdominal exam: PRESENT: normal bowel sounds, soft. ABSENT: distended, guarding, rebound, tenderness Extremities exam: PRESENT: pedal edema - Trace, +1 edema. ABSENT: clubbing Musculoskeletal exam: PRESENT: deformity - Right lower extremity BKA Neurological exam: PRESENT: alert, awake, oriented to person, oriented to place, oriented to situation Psychiatric exam: PRESENT: appropriate affect, normal mood Skin exam: PRESENT: dry, warm Results Laboratory Results: 10/03/19 05:36 10/03/19 05:36 10/03/19 10/03/19 05:36 05:36 WBC 8.5 RBC 3.23 L Hgb 8.2 L Hct 25.8 L MCV 80 MCH 25.5 L MCHC 31.9 L RDW 19.1 H Plt Count 256 Seg Neutrophils % Not Reportable Sodium 136.0 L Potassium 5.1 H D Chloride 103 Carbon Dioxide 18 L Anion Gap 15 BUN 57 H Creatinine 3.02 H Est GFR ( Amer) 20 L Glucose 154 H Calcium 8.4 Total Bilirubin 0.4 AST 72 H Alkaline Phosphatase 174 H Total Protein 6.3 Albumin 3.1 L 09/30/19 16:26 NT-Pro-B Natriuret Pep 9910 H Impressions: Abdomen/Pelvis CT 09/30/19 01:37 IMPRESSION: 1. Ascites and anasarca suggesting some component of volume overload and/or third spacing. 2. Splenomegaly. Chest X-Ray 10/02/19 13:47 IMPRESSION: No acute findings in the chest. Assessment and Plan - Diagnosis (1) Anasarca Is this a current diagnosis for this admission?: Yes Plan: This had improved with diuresis but diuretics have been discontinued. The rest of this should resolve with dialysis. (2) Urinary retention Is this a current diagnosis for this admission?: Yes Plan: She had a Sims catheter in place, may need urology follow-up (3) DANNI (acute kidney injury) Is this a current diagnosis for this admission?: Yes Plan: Creatinine more than doubled in a short period of time. Dr. Blevins believe she is getting need dialysis and that this may help her kidney start functioning normally again. She had a trialysis catheter placed today and is due to receive hemodialysis today. (4) Acute exacerbation of CHF (congestive heart failure) Qualifiers: Heart failure type: unspecified Qualified Code(s): I50.9 - Heart failure, unspecified Is this a current diagnosis for this admission?: Yes Plan: Improved substantially with a few doses of diuretic, the remainder should be able to be extracted with dialysis (5) CAD (coronary artery disease), [place] coronary artery Qualifiers: [place] vs. transplanted heart: [place] heart Associated angina: without angina Qualified Code(s): I25.10 - Atherosclerotic heart disease of [place] coronary artery without angina pectoris Is this a current diagnosis for this admission?: Yes Plan: Continue home medications - Time Time Spent with patient: 15-24 minutes
[2019-10-03] MEDS: OXYCODONE HCL IR 5 MG TABLET PO PRN (17:18)
[2019-10-03] MEDS: GABAPENTIN 300 MG CAPSULE PO SCH (22:12)
[2019-10-03] MEDS: ATORVASTATIN CALCIUM 80 MG TABLET PO SCH (22:12)
[2019-10-04] MEDS: OXYCODONE HCL IR 5 MG TABLET PO PRN ×2 (05:25→17:44)
[2019-10-04] MEDS: HEPARIN SOD (PORCINE) 5,000 UNIT/ML 1 ML VIAL SUBCUT SCH ×3 (05:25→22:14)
[2019-10-04] MEDS: BUSPIRONE HCL 10 MG TABLET PO SCH ×3 (05:25→22:14)
[2019-10-04 06:36] LABS: HEPATITS B SURFACE ANTIGEN Negative (Negative)
[2019-10-04] MEDS: HUM INSULIN NPH/REG INSULIN HM 100 UNIT/1 ML 3 ML SUBCUT SCH ×2 (08:02→16:21)
[2019-10-04] MEDS: INSULIN LISPRO 100 UNIT/ML 3 ML VIAL SUBCUT SCH ×3 (08:02→16:21)
[2019-10-04] MEDS: METOCLOPRAMIDE HCL 10 MG TABLET PO SCH ×4 (08:02→22:14)
[2019-10-04] MEDS: CITALOPRAM HYDROBROMIDE 20 MG TABLET PO SCH (09:58)
[2019-10-04] MEDS: SODIUM BICARBONATE 650 MG TABLET PO SCH ×2 (09:58→22:16)
[2019-10-04] MEDS: DOCUSATE SODIUM 100 MG CAPSULE PO SCH ×2 (09:58→17:25)
[2019-10-04] MEDS: FERROUS SULFATE 325 MG TABLET PO SCH (09:58)
[2019-10-04] MEDS: ASPIRIN 81 MG TABLET, ENT COATED PO SCH (09:58)
[2019-10-04] MEDS: FENOFIBRATE NANOCRYSTALLIZED 145 MG TABLET PO SCH (09:58)
[2019-10-04] MEDS: PANTOPRAZOLE SODIUM 40 MG TABLET.DR PO SCH (09:58)
[2019-10-04 11:53] LABS: HEPATITIS B CORE AB TOT Negative (Negative)
--- NOTE | 2019-10-04 17:19 | PDOC PROGRESS REPORT ---
Subjective Progress Note for:: 10/04/19 Subjective:: No adverse events overnight. She is feeling pretty good today. No shortness of breath. Eating and drinking without difficulty. Reason For Visit: URINARY RETENTION DANNI RESPIRATORY FAILURE HEART Physical Exam Vital Signs: Temp Pulse Resp BP Pulse Ox 98.0 F 81 17 105/74 100 10/04/19 15:51 10/04/19 15:51 10/04/19 15:51 10/04/19 15:51 10/04/19 15:51 Intake & Output 10/03/19 10/04/19 10/05/19 06:59 06:59 06:59 Intake Total 2154 3106 480 Output Total 205 1970 125 Balance 1949 1136 355 Weight 88.6 kg 88.6 kg General appearance: PRESENT: no acute distress, cooperative, disheveled, morbidly obese Respiratory exam: PRESENT: decreased breath sounds, symmetrical, unlabored. ABSENT: accessory muscle use, chest wall tenderness, crackles, prolonged expiratory phas, retraction, rhonchi, tachypnea, wheezes Cardiovascular exam: PRESENT: RRR, +S1, +S2 Pulses: PRESENT: normal carotid pulses Vascular exam: PRESENT: normal capillary refill GI/Abdominal exam: PRESENT: normal bowel sounds, soft. ABSENT: distended, guarding, rebound, tenderness Extremities exam: PRESENT: pedal edema - Trace, +1 edema. ABSENT: clubbing Musculoskeletal exam: PRESENT: deformity - Right lower extremity BKA Neurological exam: PRESENT: alert, awake, oriented to person, oriented to place, oriented to situation Psychiatric exam: PRESENT: appropriate affect, normal mood Skin exam: PRESENT: dry, warm Results Laboratory Results: 10/03/19 05:36 10/03/19 05:36 09/30/19 16:26 NT-Pro-B Natriuret Pep 9910 H Impressions: Abdomen/Pelvis CT 09/30/19 01:37 IMPRESSION: 1. Ascites and anasarca suggesting some component of volume overload and/or third spacing. 2. Splenomegaly. Chest X-Ray 10/02/19 13:47 IMPRESSION: No acute findings in the chest. Assessment and Plan - Diagnosis (1) Anasarca Is this a current diagnosis for this admission?: Yes Plan: This had improved with diuresis but diuretics have been discontinued. The rest of this should resolve with dialysis. (2) Urinary retention Is this a current diagnosis for this admission?: Yes Plan: She had a Sims catheter in place, may need urology follow-up (3) DANNI (acute kidney injury) Is this a current diagnosis for this admission?: Yes Plan: Nephrology has been consulted. She got a catheter and is gotten dialysis. We will going to monitor her metabolic panel her urine output over the weekend and will follow back up with nephrology on Sunday. (4) Acute exacerbation of CHF (congestive heart failure) Qualifiers: Heart failure type: unspecified Qualified Code(s): I50.9 - Heart failure, unspecified Is this a current diagnosis for this admission?: Yes Plan: Improved substantially with a few doses of diuretic, the remainder should be able to be extracted with dialysis (5) CAD (coronary artery disease), [place] coronary artery Qualifiers: [place] vs. transplanted heart: [place] heart Associated angina: without angina Qualified Code(s): I25.10 - Atherosclerotic heart disease of [place] coronary artery without angina pectoris Is this a current diagnosis for this admission?: Yes Plan: Continue home medications - Time Time Spent with patient: 15-24 minutes
[2019-10-04] MEDS: ATORVASTATIN CALCIUM 80 MG TABLET PO SCH (22:14)
[2019-10-04] MEDS: GABAPENTIN 300 MG CAPSULE PO SCH (22:14)
[2019-10-05] MEDS: BUSPIRONE HCL 10 MG TABLET PO SCH ×3 (05:25→21:21)
[2019-10-05] MEDS: HEPARIN SOD (PORCINE) 5,000 UNIT/ML 1 ML VIAL SUBCUT SCH ×3 (05:25→21:21)
[2019-10-05 06:11] LABS: ANION GAP 15 (5-19); BLOOD UREA NITROGEN 49 mg/dL (7-20); CALCIUM 8.8 mg/dL (8.4-10.2); CARBON DIOXIDE 22 mmol/L (22-30); CHLORIDE 97 mmol/L (98-107); GLUCOSE 141 mg/dL (75-110); POTASSIUM 4.1 mmol/L (3.6-5.0)
[2019-10-05] MEDS: INSULIN LISPRO 100 UNIT/ML 3 ML VIAL SUBCUT SCH ×3 (07:54→16:53)
[2019-10-05] MEDS: OXYCODONE HCL IR 5 MG TABLET PO PRN ×2 (08:05→21:20)
[2019-10-05] MEDS: HUM INSULIN NPH/REG INSULIN HM 100 UNIT/1 ML 3 ML SUBCUT SCH ×2 (08:06→16:53)
[2019-10-05] MEDS: METOCLOPRAMIDE HCL 10 MG TABLET PO SCH ×4 (08:06→21:21)
[2019-10-05] MEDS: PANTOPRAZOLE SODIUM 40 MG TABLET.DR PO SCH (09:10)
[2019-10-05] MEDS: SODIUM BICARBONATE 650 MG TABLET PO SCH ×2 (09:10→21:20)
[2019-10-05] MEDS: ASPIRIN 81 MG TABLET, ENT COATED PO SCH (09:10)
[2019-10-05] MEDS: CITALOPRAM HYDROBROMIDE 20 MG TABLET PO SCH (09:11)
[2019-10-05] MEDS: FERROUS SULFATE 325 MG TABLET PO SCH (09:11)
[2019-10-05] MEDS: FENOFIBRATE NANOCRYSTALLIZED 145 MG TABLET PO SCH (09:11)
[2019-10-05] MEDS: DOCUSATE SODIUM 100 MG CAPSULE PO SCH ×2 (09:11→17:07)
[2019-10-05 11:36] LABS: HEPATITIS C QUANTITATION HCV Not Detected IU/mL (.)
[2019-10-05] MEDS: MAGNESIUM HYDROXIDE SUSP 30 ML UDCUP PO PRN (13:19)
--- NOTE | 2019-10-05 14:46 | PDOC PROGRESS REPORT ---
Subjective Progress Note for:: 10/05/19 Subjective:: No adverse events overnight. She said she did not sleep very well last night. She been eating and drinking without difficulty. She has put out some urine this morning. Reason For Visit: URINARY RETENTION DANNI RESPIRATORY FAILURE HEART Physical Exam Vital Signs: Temp Pulse Resp BP Pulse Ox 98.1 F 79 15 125/81 100 10/05/19 11:20 10/05/19 11:20 10/05/19 11:20 10/05/19 11:20 10/05/19 11:20 Intake & Output 10/04/19 10/05/19 10/06/19 06:59 06:59 06:59 Intake Total 3106 960 237 Output Total 1970 575 Balance 1136 385 237 Weight 88.6 kg General appearance: PRESENT: no acute distress, cooperative, disheveled, morbidly obese Respiratory exam: PRESENT: decreased breath sounds, symmetrical, unlabored. ABSENT: accessory muscle use, chest wall tenderness, crackles, prolonged expi ratory phas, retraction, rhonchi, tachypnea, wheezes Cardiovascular exam: PRESENT: RRR, +S1, +S2 Pulses: PRESENT: normal carotid pulses Vascular exam: PRESENT: normal capillary refill GI/Abdominal exam: PRESENT: normal bowel sounds, soft. ABSENT: distended, guarding, rebound, tenderness Extremities exam: PRESENT: pedal edema - Trace, +1 edema. ABSENT: clubbing Musculoskeletal exam: PRESENT: deformity - Right lower extremity BKA Neurological exam: PRESENT: alert, awake, oriented to person, oriented to place, oriented to situation Psychiatric exam: PRESENT: appropriate affect, normal mood Skin exam: PRESENT: dry, warm Results Laboratory Results: 10/03/19 05:36 10/05/19 05:06 10/05/19 05:06 Sodium 134.3 L Potassium 4.1 Chloride 97 L Carbon Dioxide 22 Anion Gap 15 BUN 49 H Creatinine 2.13 H Est GFR ( Amer) 30 L Glucose 141 H Calcium 8.8 09/30/19 03:14 Blood Blood Culture - Final NO GROWTH IN 5 DAYS 09/30/19 01:42 Blood Blood Culture - Final NO GROWTH IN 5 DAYS 09/30/19 16:26 NT-Pro-B Natriuret Pep 9910 H Impressions: Abdomen/Pelvis CT 09/30/19 01:37 IMPRESSION: 1. Ascites and anasarca suggesting some component of volume overload and/or third spacing. 2. Splenomegaly. Chest X-Ray 10/02/19 13:47 IMPRESSION: No acute findings in the chest. Assessment and Plan - Diagnosis (1) Anasarca Is this a current diagnosis for this admission?: Yes Plan: She has had a substantial improvement after a few doses of diuretic and then hemodialysis. (2) Urinary retention Is this a current diagnosis for this admission?: Yes Plan: She had a Sims catheter in place, may need urology follow-up (3) DANNI (acute kidney injury) Is this a current diagnosis for this admission?: Yes Plan: Nephrology has been consulted. She got a catheter and is gotten dialysis. We will going to monitor her metabolic panel her urine output over the weekend and will follow back up with nephrology on Sunday. (4) Acute exacerbation of CHF (congestive heart failure) Qualifiers: Heart failure type: unspecified Qualified Code(s): I50.9 - Heart failure, unspecified Is this a current diagnosis for this admission?: Yes Plan: Improved substantially with a few doses of diuretic and a dialysis treatment (5) CAD (coronary artery disease), [place] coronary artery Qualifiers: [place] vs. transplanted heart: [place] heart Associated angina: without angina Qualified Code(s): I25.10 - Atherosclerotic heart disease of [place] coronary artery without angina pectoris Is this a current diagnosis for this admission?: Yes Plan: Continue home medications (6) History of atrial fibrillation Is this a current diagnosis for this admission?: Yes Plan: She is currently in a sinus rhythm. She said she was taking warfarin at home and was on that because it was cheaper than Xarelto. Her INR was only 1.2 when she came in. Her [id number] score was 7 so she definitely needs to be on anticoagulation. She has been in sinus rhythm on telemetry for couple of days, so I would like to find out whether or not she could be on Eliquis, specifically looking to see if her insurance will cover it. - Time Time Spent with patient: 15-24 minutes
[2019-10-05] MEDS: GABAPENTIN 300 MG CAPSULE PO SCH (21:21)
[2019-10-05] MEDS: ATORVASTATIN CALCIUM 80 MG TABLET PO SCH (21:21)
[2019-10-06 05:32] LABS: ABSOLUTE BASOPHILS # (AUTO) 0.1 10^3/uL (0.0-0.2); ABSOLUTE EOSINOPHILS # (AUTO) 0.1 10^3/uL (0.0-0.6); ABSOLUTE LYMPHOCYTES (AUTO) 1.5 10^3/uL (0.5-4.7); ABSOLUTE MONOCYTES (AUTO) 0.7 10^3/uL (0.1-1.4); ABSOLUTE NEUT (AUTO) 5.6 10^3/uL (1.7-8.2); BASOPHILS % (AUTO) 0.8 % (0-2); EOSINOPHILS % (AUTO) 1.6 % (0-6); HEMATOCRIT 27.4 % (36.0-47.0); HEMOGLOBIN 8.7 g/dL (12.0-15.5); LYMPHOCYTES % (AUTO) 18.3 % (13-45); MEAN CORPUSCULAR HEMOGLOBIN 25.1 pg (27.0-33.4); MEAN CORPUSCULAR HGB CONC 31.8 g/dL (32.0-36.0); MEAN CORPUSCULAR VOLUME 79 fl (80-97); MONOCYTES % (AUTO) 9.2 % (3-13); PLATELET COUNT 253 10^3/uL (150-450); RED BLOOD COUNT 3.48 10^6/uL (3.72-5.28); RED CELL DISTRIBUTION WIDTH 19.6 % (11.5-14.0); SEGMENTED NEUTROPHILS % (AUTO) 70.1 % (42-78); TOTAL CELLS COUNTED % (AUTO) 100 %
[2019-10-06 05:57] LABS: ANION GAP 13 (5-19); BLOOD UREA NITROGEN 51 mg/dL (7-20); CALCIUM 8.9 mg/dL (8.4-10.2); CARBON DIOXIDE 28 mmol/L (22-30); CHLORIDE 94 mmol/L (98-107); GLUCOSE 134 mg/dL (75-110); POTASSIUM 4.5 mmol/L (3.6-5.0)
[2019-10-06] MEDS: HEPARIN SOD (PORCINE) 5,000 UNIT/ML 1 ML VIAL SUBCUT SCH ×3 (06:01→21:36)
[2019-10-06] MEDS: BUSPIRONE HCL 10 MG TABLET PO SCH ×3 (06:01→21:37)
[2019-10-06] MEDS: INSULIN LISPRO 100 UNIT/ML 3 ML VIAL SUBCUT SCH ×3 (08:02→16:54)
[2019-10-06] MEDS: HUM INSULIN NPH/REG INSULIN HM 100 UNIT/1 ML 3 ML SUBCUT SCH ×2 (08:36→16:55)
[2019-10-06] MEDS: METOCLOPRAMIDE HCL 10 MG TABLET PO SCH ×4 (08:36→21:37)
[2019-10-06] MEDS: ASPIRIN 81 MG TABLET, ENT COATED PO SCH (09:30)
[2019-10-06] MEDS: PANTOPRAZOLE SODIUM 40 MG TABLET.DR PO SCH (09:30)
[2019-10-06] MEDS: DOCUSATE SODIUM 100 MG CAPSULE PO SCH ×2 (09:30→17:38)
[2019-10-06] MEDS: SODIUM BICARBONATE 650 MG TABLET PO SCH (09:30)
[2019-10-06] MEDS: OXYCODONE HCL IR 5 MG TABLET PO PRN ×2 (09:30→21:36)
[2019-10-06] MEDS: FERROUS SULFATE 325 MG TABLET PO SCH (09:30)
[2019-10-06] MEDS: FENOFIBRATE NANOCRYSTALLIZED 145 MG TABLET PO SCH (09:30)
[2019-10-06] MEDS: CITALOPRAM HYDROBROMIDE 20 MG TABLET PO SCH (09:30)
[2019-10-06] MEDS ORDERED: FUROSEMIDE INJ/PF 40 MG/4 ML SDV IV PRN (12:04)
[2019-10-06] MEDS: ALBUMIN HUMAN 12.5 GM/50 ML RTUINJ IV SCH ×2 (12:33→13:42)
--- NOTE | 2019-10-06 14:46 | PDOC PROGRESS REPORT ---
Subjective Progress Note for:: 10/06/19 Subjective:: No adverse events overnight. No new complaints. She said she still feels a little bit swollen. Her creatinine has returned to her baseline. She is putting out urine through the Sims catheter. She is on oxygen still but she is not had any shortness of breath. She has not tried to take it off to see how she does. Reason For Visit: URINARY RETENTION DANNI RESPIRATORY FAILURE HEART Physical Exam Vital Signs: Temp Pulse Resp BP Pulse Ox 98.0 F 83 14 124/82 100 10/06/19 11:26 10/06/19 11:26 10/06/19 11:26 10/06/19 11:26 10/06/19 11:26 Intake & Output 10/05/19 10/06/19 10/07/19 06:59 06:59 06:59 Intake Total 960 951 290 Output Total 575 750 Balance 385 201 290 Weight 95.2 kg General appearance: PRESENT: no acute distress, cooperative, disheveled, morbidly obese Respiratory exam: PRESENT: decreased breath sounds, symmetrical, unlabored. ABSENT: accessory muscle use, chest wall tenderness, crackles, prolonged expiratory phas, retraction, rhonchi, tachypnea, wheezes Cardiovascular exam: PRESENT: RRR, +S1, +S2 Pulses: PRESENT: normal carotid pulses Vascular exam: PRESENT: normal capillary refill GI/Abdominal exam: PRESENT: normal bowel sounds, soft. ABSENT: distended, guarding, rebound, tenderness Extremities exam: PRESENT: pedal edema - Trace, +1 edema. ABSENT: clubbing Musculoskeletal exam: PRESENT: deformity - Right lower extremity BKA Neurological exam: PRESENT: alert, awake, oriented to person, oriented to place, oriented to situation Psychiatric exam: PRESENT: appropriate affect, normal mood Skin exam: PRESENT: dry, warm Results Laboratory Results: 10/06/19 04:36 10/06/19 04:36 10/06/19 10/06/19 04:36 04:36 WBC 8.0 RBC 3.48 L Hgb 8.7 L Hct 27.4 L MCV 79 L MCH 25.1 L MCHC 31.8 L RDW 19.6 H Plt Count 253 Seg Neutrophils % 70.1 Sodium 134.5 L Potassium 4.5 Chloride 94 L Carbon Dioxide 28 Anion Gap 13 BUN 51 H Creatinine 1.87 H Est GFR ( Amer) 34 L Glucose 134 H Calcium 8.9 09/30/19 16:26 NT-Pro-B Natriuret Pep 9910 H Impressions: Abdomen/Pelvis CT 09/30/19 01:37 IMPRESSION: 1. Ascites and anasarca suggesting some component of volume overload and/or third spacing. 2. Splenomegaly. Chest X-Ray 10/02/19 13:47 IMPRESSION: No acute findings in the chest. Assessment and Plan - Diagnosis (1) Anasarca Is this a current diagnosis for this admission?: Yes Plan: She has had a substantial improvement after a few doses of diuretic and then hemodialysis. Still retaining perhaps a little bit. (2) Urinary retention Is this a current diagnosis for this admission?: Yes (3) DANNI (acute kidney injury) Is this a current diagnosis for this admission?: Yes Plan: Creatinine has returned to her baseline. Nephrology has been consulted. She is putting out urine, so we will see if nephrology recommends any more dialysis treatments. (4) Acute exacerbation of CHF (congestive heart failure) Qualifiers: Heart failure type: unspecified Qualified Code(s): I50.9 - Heart failure, unspecified Is this a current diagnosis for this admission?: Yes Plan: Improved substantially with a few doses of diuretic and a dialysis treatment (5) CAD (coronary artery disease), [place] coronary artery Qualifiers: [place] vs. transplanted heart: [place] heart Associated angina: without angina Qualified Code(s): I25.10 - Atherosclerotic heart disease of [place] coronary artery without angina pectoris Is this a current diagnosis for this admission?: Yes Plan: Continue home medications (6) History of atrial fibrillation Is this a current diagnosis for this admission?: Yes Plan: She is currently in a sinus rhythm. She said she was taking warfarin at home and was on that because it was cheaper than Xarelto. Her INR was only 1.2 when she came in. Her [id number] score was 7 so she definitely needs to be on anticoagulation. She has been in sinus rhythm on telemetry for couple of days, so I would like to find out whether or not she could be on Eliquis, specifically looking to see if her insurance will cover it. - Time Time Spent with patient: 15-24 minutes
[2019-10-06 15:36] LABS: A/G RATIO 0.8 (0.7-1.7); ALBUMIN 2 2.6 g/dL (2.9-4.4); BETA GLOBULINS 0.9 g/dL (0.7-1.3); GLOBULIN TOTAL 3.3 g/dL (2.2-3.9); MONOCLONAL SPIKE Not Observed g/dL (Not Observ); PROTEIN TOTAL SERUM 5.9 g/dL (6.0-8.5)
--- NOTE | 2019-10-06 15:54 | PDOC PROGRESS REPORT ---
Subjective Progress Note for:: 10/06/19 Subjective:: Patient is doing well and she seems to be better in terms of her urine output. She has made about 750 mL of urine output for the past 24 hours. She still feels swollen and she states that it seems to be worse than last week. She also states that she feels congested and occasionally would expectorate about yellowish phlegm. However she is afebrile. Her appetite is fair. Reason For Visit: URINARY RETENTION DANNI RESPIRATORY FAILURE HEART Physical Exam Vital Signs: Temp Pulse Resp BP Pulse Ox 98.0 F 83 14 124/82 100 10/06/19 11:26 10/06/19 11:26 10/06/19 11:26 10/06/19 11:26 10/06/19 11:26 Intake & Output 10/05/19 10/06/19 10/07/19 06:59 06:59 06:59 Intake Total 960 951 240 Output Total 575 750 Balance 385 201 240 Weight 95.2 kg Exam: General appearance: PRESENT: no acute distress, cooperative, well-developed, well-nourished Head exam: PRESENT: atraumatic, normocephalic Eye exam: PRESENT: conjunctiva pale, PERRLA. ABSENT: scleral icterus Neck exam: ABSENT: JVD Respiratory exam: PRESENT: Normal breath sounds. ABSENT: crackles, rales, rhonchi, unlabored, wheezes Cardiovascular exam: PRESENT: Regular rate rhythm -+S1, +S2. ABSENT: diastolic murmur, systolic murmur GI/Abdominal exam: PRESENT: normal bowel sounds, soft. ABSENT: guarding, mass, tenderness Extremities exam: Still with significant anasarca metabolic grade 3 bilateral lower extremity tight edema and upper extremity edema as well as subcutaneous edema on her back, buttocks and dependent portion of her body. Neurological exam: PRESENT: alert, awake, oriented to person, place and time. Skin exam: PRESENT: dry, warm, Cardiovascular exam: PRESENT: +S1, +S2 GI/Abdominal exam: PRESENT: soft. ABSENT: ascites, distended, tenderness Results Laboratory Results: 10/06/19 04:36 10/06/19 04:36 10/06/19 10/06/19 04:36 04:36 WBC 8.0 RBC 3.48 L Hgb 8.7 L Hct 27.4 L MCV 79 L MCH 25.1 L MCHC 31.8 L RDW 19.6 H Plt Count 253 Seg Neutrophils % 70.1 Sodium 134.5 L Potassium 4.5 Chloride 94 L Carbon Dioxide 28 Anion Gap 13 BUN 51 H Creatinine 1.87 H Est GFR ( Amer) 34 L Glucose 134 H Calcium 8.9 09/30/19 16:26 NT-Pro-B Natriuret Pep 9910 H Impressions: Abdomen/Pelvis CT 09/30/19 01:37 IMPRESSION: 1. Ascites and anasarca suggesting some component of volume overload and/or third spacing. 2. Splenomegaly. Chest X-Ray 10/02/19 13:47 IMPRESSION: No acute findings in the chest. Assessment & Plan - Diagnosis (1) Acute kidney injury superimposed on chronic kidney disease Is this a current diagnosis for this admission?: Yes Plan: Patient most likely has developed some sort of acute tubular necrosis with hypotensive episodes last week. No evidence of hydronephrosis on CT scan. She developed oliguria so I initiated acute renal replacement therapy with acute hemodialysis last Sunday. Currently her urine output is improving. This morning she already had 500 mL of urine output in her Sims bag. Her kidney function is also improved. She does not need any renal replacement therapy and most likely will not need any at this point. I will give her a dose of diuretics today after IV albumin. She will probably need oral diuretics when she gets discharged. (2) Hyperkalemia Is this a current diagnosis for this admission?: Yes Plan: Due to DANNI. Resolved. (3) Hypotension Is this a current diagnosis for this admission?: Yes Plan: Blood pressure improved but still relatively on the low 110's. Continue to hold blood pressure medications. (4) Metabolic acidosis Is this a current diagnosis for this admission?: Yes Plan: Resolved with dialysis. Discontinue sodium bicarbonate. (5) Hyponatremia Is this a current diagnosis for this admission?: Yes Plan: Mild and unchanged likely secondary to hypervolemic state. (6) Proteinuria Is this a current diagnosis for this admission?: Yes Plan: She has urine protein to creatinine ratio of 3.1. High likelihood of diabetic nephropathy. I will check serum protein electrophoresis, currently pending. (7) Anasarca Is this a current diagnosis for this admission?: Yes Plan: Possibly due to nephrotic range proteinuria . Also needs to rule out liver pathology in the presence of splenomegaly. We will give her a trial of IV Lasix today. (8) Hypoalbuminemia Is this a current diagnosis for this admission?: Yes Plan: We will give 25 g of IV albumin today followed by IV Lasix. (9) Chronic pain Is this a current diagnosis for this admission?: Yes Plan: Chronic limb pain on her right stump and low back pain on chronic pain medic ations. Due to the patient's worsening kidney function and increasing somnolence I changed her gabapentin to just 300 mg nightly and may need to be discontinued if necessary, I will also decrease her oxycodone to 10 mg every 12 hours only. (10) Splenomegaly Is this a current diagnosis for this admission?: Yes Plan: She has low hepatitis B surface antibody but the rest of her hepatitis panels were negative. Might need hematology consult. Discussed this with Dr. Ortega. (11) Anemia Is this a current diagnosis for this admission?: Yes Plan: Patient has iron deficiency and underlying chronic kidney disease. Start oral iron. We will give her Retacrit. (12) Urinary retention Is this a current diagnosis for this admission?: Yes Plan: Keep indwelling Sims catheter for now. She will need to see urology once discharge. (13) Congestive heart failure Is this a current diagnosis for this admission?: Yes Plan: Echocardiogram showed LVEF of 40 to 45%, grade 2/4 moderate diastolic dysfunction. Currently compensated. (14) Diabetes mellitus type 2 in obese Is this a current diagnosis for this admission?: Yes Plan: Uncontrolled with hemoglobin A1c of 7.9. - Time Time with patient: 15-25 minutes
[2019-10-06] MEDS ORDERED: EPOETIN ALFA-EPBX 10,000 UNIT/ML VIAL (NON-ESRD) SUBCUT ONE (16:30)
[2019-10-06] MEDS: ATORVASTATIN CALCIUM 80 MG TABLET PO SCH (21:37)
[2019-10-06] MEDS: GABAPENTIN 300 MG CAPSULE PO SCH (21:38)
[2019-10-07] MEDS: HEPARIN SOD (PORCINE) 5,000 UNIT/ML 1 ML VIAL SUBCUT SCH ×3 (05:46→21:18)
[2019-10-07] MEDS: BUSPIRONE HCL 10 MG TABLET PO SCH ×4 (05:46→21:18)
[2019-10-07 06:06] LABS: ABSOLUTE EOSINOPHILS # (AUTO) 0.1 10^3/uL (0.0-0.6); ABSOLUTE MONOCYTES (AUTO) 0.6 10^3/uL (0.1-1.4); ABSOLUTE NEUT (AUTO) 4.9 10^3/uL (1.7-8.2); BASOPHILS % (AUTO) 0.5 % (0-2); EOSINOPHILS % (AUTO) 1.3 % (0-6); HEMATOCRIT 28.4 % (36.0-47.0); MEAN CORPUSCULAR HEMOGLOBIN 25.1 pg (27.0-33.4); MEAN CORPUSCULAR HGB CONC 31.7 g/dL (32.0-36.0); MEAN CORPUSCULAR VOLUME 79 fl (80-97); MONOCYTES % (AUTO) 8.8 % (3-13); PLATELET COUNT 211 10^3/uL (150-450); RED BLOOD COUNT 3.58 10^6/uL (3.72-5.28); RED CELL DISTRIBUTION WIDTH 19.7 % (11.5-14.0); SEGMENTED NEUTROPHILS % (AUTO) 74.4 % (42-78); TOTAL CELLS COUNTED % (AUTO) 100 %; WHITE BLOOD COUNT 6.6 10^3/uL (4.0-10.5)
[2019-10-07 06:34] LABS: ALBUMIN 3.6 g/dL (3.5-5.0); ANION GAP 12 (5-19); BLOOD UREA NITROGEN 47 mg/dL (7-20); CALCIUM 9.2 mg/dL (8.4-10.2); CARBON DIOXIDE 29 mmol/L (22-30); CHLORIDE 96 mmol/L (98-107); GLUCOSE 166 mg/dL (75-110); POTASSIUM 4.4 mmol/L (3.6-5.0)
[2019-10-07] MEDS: HUM INSULIN NPH/REG INSULIN HM 100 UNIT/1 ML 3 ML SUBCUT SCH ×2 (08:33→16:36)
[2019-10-07] MEDS: METOCLOPRAMIDE HCL 10 MG TABLET PO SCH ×4 (08:33→21:18)
[2019-10-07] MEDS: INSULIN LISPRO 100 UNIT/ML 3 ML VIAL SUBCUT SCH ×3 (08:33→16:20)
[2019-10-07] MEDS: CITALOPRAM HYDROBROMIDE 20 MG TABLET PO SCH (10:45)
[2019-10-07] MEDS: FENOFIBRATE NANOCRYSTALLIZED 145 MG TABLET PO SCH (10:45)
[2019-10-07] MEDS: FERROUS SULFATE 325 MG TABLET PO SCH (10:45)
[2019-10-07] MEDS: ASPIRIN 81 MG TABLET, ENT COATED PO SCH (10:45)
[2019-10-07] MEDS: DOCUSATE SODIUM 100 MG CAPSULE PO SCH ×2 (10:45→17:25)
[2019-10-07] MEDS: OXYCODONE HCL IR 5 MG TABLET PO PRN (10:45)
[2019-10-07] MEDS: PANTOPRAZOLE SODIUM 40 MG TABLET.DR PO SCH (10:45)
[2019-10-07] MEDS: FUROSEMIDE INJ/PF 40 MG/4 ML SDV IV SCH (11:48)
--- NOTE | 2019-10-07 12:38 | PDOC PROGRESS REPORT ---
Subjective Progress Note for:: 10/07/19 Reason For Visit: URINARY RETENTION DANNI RESPIRATORY FAILURE HEART 10/07/2019 Patient was admitted with sciatica, urinary retention, acute kidney injury, acute exacerbation of CHF, history of atrial fib Physical Exam Vital Signs: Temp Pulse Resp BP Pulse Ox 98.2 F 87 16 109/53 L 94 10/07/19 11:20 10/07/19 11:20 10/07/19 11:20 10/07/19 11:20 10/07/19 11:20 Intake & Output 10/06/19 10/07/19 10/08/19 06:59 06:59 06:59 Intake Total 951 800 260 Output Total 750 3100 Balance 201 -2300 260 Weight 95.2 kg 88 kg General appearance: PRESENT: no acute distress, other - Sitting up on the side of bed in no distress no supplemental oxygen Respiratory exam: PRESENT: clear to auscultation amaya. ABSENT: rales, rhonchi, wheezes Cardiovascular exam: PRESENT: RRR. ABSENT: diastolic murmur, rubs, systolic murmur Neurological exam: PRESENT: alert, awake, oriented to person, oriented to place, oriented to time, oriented to situation, CN II-XII grossly intact. ABSENT: motor sensory deficit Psychiatric exam: PRESENT: appropriate affect, normal mood. ABSENT: homicidal ideation, suicidal ideation Results Laboratory Results: 10/07/19 05:45 10/07/19 05:45 10/03/19 10/07/19 10/07/19 05:36 05:45 05:45 WBC 6.6 RBC 3.58 L Hgb 9.0 L Hct 28.4 L MCV 79 L MCH 25.1 L MCHC 31.7 L RDW 19.7 H Plt Count 211 Seg Neutrophils % 74.4 Sodium 137.3 Potassium 4.4 Chloride 96 L Carbon Dioxide 29 Anion Gap 12 BUN 47 H Creatinine 1.33 H Est GFR ( Amer) 51 L Glucose 166 H Calcium 9.2 Total Protein 5.9 L Albumin 2.6 L 3.6 09/30/19 16:26 NT-Pro-B Natriuret Pep 9910 H Impressions: Abdomen/Pelvis CT 09/30/19 01:37 IMPRESSION: 1. Ascites and anasarca suggesting some component of volume overload and/or third spacing. 2. Splenomegaly. Chest X-Ray 10/02/19 13:47 IMPRESSION: No acute findings in the chest. Assessment and Plan - Diagnosis (1) Acute kidney injury superimposed on chronic kidney disease Is this a current diagnosis for this admission?: Yes (2) Anasarca Is this a current diagnosis for this admission?: Yes (3) Chronic pain Is this a current diagnosis for this admission?: Yes (4) History of atrial fibrillation Is this a current diagnosis for this admission?: Yes (5) Urinary retention Is this a current diagnosis for this admission?: Yes - Plan Summary Summary: 10/07/2019 Temperature 97.9 pulse 86, blood pressure 131/76, O2 sat is 97% on room air She states she lives at home with her family and uses no oxygen at home She states she has been on dialysis once before in 2017 for acute kidney failure, states she lived in [place] at that time Creatinine has improved tremendously now down to 1.33 from a high of 3.02 BUN appears to be stable around 47 today White blood cell count is normal 6.6 platelets 211,000 Patient's pain meds and gabapentin teen have been reduced secondary to her kidney functions Patient may or may not need another hemodialysis treatment tomorrow, nephrology will decide Patient will need to go home on p.o. diuretics. Patient is diuresing well from her IV Lasix 40 mg daily Also will address the Coumadin versus Eliquis issue and her finances Patient is stable and has no complaints - Time Time Spent with patient: 25-34 minutes
[2019-10-07] MEDS: GABAPENTIN 300 MG CAPSULE PO SCH (21:18)
[2019-10-07] MEDS: ATORVASTATIN CALCIUM 80 MG TABLET PO SCH (21:18)
--- NOTE | 2019-10-08 00:25 | PDOC PROGRESS REPORT ---
Subjective Progress Note for:: 10/07/19 Subjective:: Patient stated she is feeling fine. She made a good amount of urine output 3000 mL for the past 24 hours. She did receive IV albumin and Lasix yesterday. She denies any shortness of breath. She denies any other new complaints. Reason For Visit: URINARY RETENTION DANNI RESPIRATORY FAILURE HEART Physical Exam Vital Signs: Temp Pulse Resp BP Pulse Ox 97.6 F 90 16 135/83 H 94 10/07/19 08:21 10/07/19 08:21 10/07/19 08:21 10/07/19 08:21 10/07/19 08:21 Intake & Output 10/06/19 10/07/19 10/08/19 06:59 06:59 06:59 Intake Total 951 800 Output Total 750 3100 Balance 201 -2300 Weight 95.2 kg 88 kg Exam: General appearance: PRESENT: no acute distress, cooperative, well-developed, well-nourished Head exam: PRESENT: atraumatic, normocephalic Eye exam: PRESENT: conjunctiva pale, PERRLA. ABSENT: scleral icterus Neck exam: ABSENT: JVD Respiratory exam: PRESENT: Diminished breath sounds. ABSENT: crackles, rales, rhonchi, unlabored, wheezes Cardiovascular exam: PRESENT: Regular rate rhythm -+S1, +S2. ABSENT: diastolic murmur, systolic murmur GI/Abdominal exam: PRESENT: normal bowel sounds, soft. ABSENT: guarding, mass, tenderness Extremities exam: Still positive anasarca but slowly improving lower extremity pitting edema Neurological exam: PRESENT: alert, awake, oriented to person, place and time. Skin exam: PRESENT: dry, warm, Cardiovascular exam: PRESENT: +S1, +S2 GI/Abdominal exam: PRESENT: soft. ABSENT: ascites, distended, tenderness Results Laboratory Results: 10/07/19 05:45 10/07/19 05:45 10/03/19 10/07/19 10/07/19 05:36 05:45 05:45 WBC 6.6 RBC 3.58 L Hgb 9.0 L Hct 28.4 L MCV 79 L MCH 25.1 L MCHC 31.7 L RDW 19.7 H Plt Count 211 Seg Neutrophils % 74.4 Sodium 137.3 Potassium 4.4 Chloride 96 L Carbon Dioxide 29 Anion Gap 12 BUN 47 H Creatinine 1.33 H Est GFR ( Amer) 51 L Glucose 166 H Calcium 9.2 Total Protein 5.9 L Albumin 2.6 L 3.6 09/30/19 16:26 NT-Pro-B Natriuret Pep 9910 H Impressions: Abdomen/Pelvis CT 09/30/19 01:37 IMPRESSION: 1. Ascites and anasarca suggesting some component of volume overload and/or third spacing. 2. Splenomegaly. Chest X-Ray 10/02/19 13:47 IMPRESSION: No acute findings in the chest. Assessment & Plan - Diagnosis (1) Acute kidney injury superimposed on chronic kidney disease Is this a current diagnosis for this admission?: Yes Plan: Patient most likely has developed some sort of acute tubular necrosis with hypotensive episodes last week. No evidence of hydronephrosis on CT scan. She developed oliguria so I initiated acute renal replacement therapy with acute hemodialysis last Sunday. Urine output significantly improved after a dose of IV albumin followed by Lasix yesterday. She is a still clinically in a hypervolemic state so I will start her on Lasix 40 mg IV daily. She will definitely need to be on diuretics upon discharge. She does not need any further renal replacement therapy at this point. (2) Hypotension Is this a current diagnosis for this admission?: Yes Plan: Within acceptable normal limits without blood pressure medications. (3) Hyponatremia Is this a current diagnosis for this admission?: Yes Plan: Mild and unchanged likely secondary to hypervolemic state. Resolved. (4) Proteinuria Is this a current diagnosis for this admission?: Yes Plan: She has urine protein to creatinine ratio of 3.1. High likelihood of diabetic nephropathy. Serum protein electrophoresis is negative. (5) Anasarca Is this a current diagnosis for this admission?: Yes Plan: Possibly due to nephrotic range proteinuria . Also needs to rule out liver pathology in the presence of splenomegaly. Continue Lasix 40 mg IV daily. (6) Hypoalbuminemia Is this a current diagnosis for this admission?: Yes Plan: She received 25 g of IV albumin, 10/05 followed by IV Lasix. (7) Chronic pain Is this a current diagnosis for this admission?: Yes Plan: Chronic limb pain on her right stump and low back pain on chronic pain medications. Due to the patient's worsening kidney function and increasing somnolence I changed her gabapentin to just 300 mg nightly and may need to be discontinued if necessary, I will also decrease her oxycodone to 10 mg every 12 hours only. (8) Splenomegaly Is this a current diagnosis for this admission?: Yes Plan: She has low hepatitis B surface antibody but the rest of her hepatitis panels were negative. Might need hematology consult. Discussed this with Dr. Ortega. (9) Anemia Is this a current diagnosis for this admission?: Yes Plan: Patient has iron deficiency and underlying chronic kidney disease. Start oral iron. She received Retacrit. (10) Urinary retention Is this a current diagnosis for this admission?: Yes Plan: Keep indwelling Sims catheter for now. She will need to see urology once discharge. (11) Congestive heart failure Is this a current diagnosis for this admission?: Yes Plan: Echocardiogram showed LVEF of 40 to 45%, grade 2/4 moderate diastolic dysfunction. Currently compensated. (12) Diabetes mellitus type 2 in obese Is this a current diagnosis for this admission?: Yes Plan: Uncontrolled with hemoglobin A1c of 7.9. - Time Time with patient: 15-25 minutes
[2019-10-08] MEDS: OXYCODONE HCL IR 5 MG TABLET PO PRN ×2 (01:23→13:51)
[2019-10-08] MEDS ORDERED: LACTULOSE SYRUP 20 GM/30 ML UDCUP PO ONE (03:15)
[2019-10-08 05:33] LABS: ANION GAP 10 (5-19); BLOOD UREA NITROGEN 39 mg/dL (7-20); CARBON DIOXIDE 30 mmol/L (22-30); CHLORIDE 98 mmol/L (98-107); GLUCOSE 197 mg/dL (75-110); POTASSIUM 4.6 mmol/L (3.6-5.0)
[2019-10-08] MEDS: BUSPIRONE HCL 10 MG TABLET PO SCH ×3 (06:17→21:37)
[2019-10-08] MEDS: HEPARIN SOD (PORCINE) 5,000 UNIT/ML 1 ML VIAL SUBCUT SCH ×3 (06:17→21:37)
[2019-10-08] MEDS: METOCLOPRAMIDE HCL 10 MG TABLET PO SCH ×4 (08:17→21:37)
[2019-10-08] MEDS: HUM INSULIN NPH/REG INSULIN HM 100 UNIT/1 ML 3 ML SUBCUT SCH ×2 (08:17→18:36)
[2019-10-08] MEDS: INSULIN LISPRO 100 UNIT/ML 3 ML VIAL SUBCUT SCH ×3 (08:18→18:35)
[2019-10-08] MEDS: PANTOPRAZOLE SODIUM 40 MG TABLET.DR PO SCH (10:15)
[2019-10-08] MEDS: FENOFIBRATE NANOCRYSTALLIZED 145 MG TABLET PO SCH (10:15)
[2019-10-08] MEDS: ONDANSETRON HCL INJ/PF 4 MG/2 ML SDV IV PRN ×4 (10:15→23:30)
[2019-10-08] MEDS: CITALOPRAM HYDROBROMIDE 20 MG TABLET PO SCH (10:15)
[2019-10-08] MEDS: ASPIRIN 81 MG TABLET, ENT COATED PO SCH (10:15)
[2019-10-08] MEDS: FERROUS SULFATE 325 MG TABLET PO SCH (10:15)
[2019-10-08] MEDS: DOCUSATE SODIUM 100 MG CAPSULE PO SCH ×2 (10:15→18:35)
[2019-10-08] MEDS: FUROSEMIDE INJ/PF 40 MG/4 ML SDV IV SCH (10:15)
--- NOTE | 2019-10-08 16:34 | PDOC PROGRESS REPORT ---
Subjective Progress Note for:: 10/08/19 Reason For Visit: URINARY RETENTION DANNI RESPIRATORY FAILURE HEART 10/08/2019 Urinary retention, sciatica, anisocoria, acute kidney injury, acute exacerbation of CHF, history of atrial fib Physical Exam Vital Signs: Temp Pulse Resp BP Pulse Ox 97.8 F 86 12 96/55 L 92 10/08/19 15:21 10/08/19 15:21 10/08/19 15:21 10/08/19 15:21 10/08/19 15:21 Intake & Output 10/07/19 10/08/19 10/09/19 06:59 06:59 06:59 Intake Total 800 1220 480 Output Total 3100 3200 780 Balance -2299 -300 Weight 88 kg 85.4 kg General appearance: PRESENT: no acute distress, other - Sitting up in bed smiling talking in no distress Respiratory exam: PRESENT: clear to auscultation amaya. ABSENT: rales, rhonchi, wheezes Cardiovascular exam: PRESENT: RRR. ABSENT: diastolic murmur, rubs, systolic murmur Neurological exam: PRESENT: alert, awake, oriented to person, oriented to place, oriented to time, oriented to situation, CN II-XII grossly intact. ABSENT: motor sensory deficit Psychiatric exam: PRESENT: appropriate affect, normal mood. ABSENT: homicidal ideation, suicidal ideation Results Laboratory Results: 10/07/19 05:45 10/08/19 04:34 10/08/19 04:34 Sodium 137.5 Potassium 4.6 Chloride 98 Carbon Dioxide 30 Anion Gap 10 BUN 39 H Creatinine 1.12 Est GFR ( Amer) > 60 Glucose 197 H Calcium 9.0 09/30/19 16:26 NT-Pro-B Natriuret Pep 9910 H Impressions: Abdomen/Pelvis CT 09/30/19 01:37 IMPRESSION: 1. Ascites and anasarca suggesting some component of volume overload and/or third spacing. 2. Splenomegaly. Chest X-Ray 10/02/19 13:47 IMPRESSION: No acute findings in the chest. Assessment and Plan - Diagnosis (1) Acute kidney injury superimposed on chronic kidney disease Is this a current diagnosis for this admission?: Yes (2) Anasarca Is this a current diagnosis for this admission?: Yes (3) Chronic pain Is this a current diagnosis for this admission?: Yes (4) History of atrial fibrillation Is this a current diagnosis for this admission?: Yes (5) Urinary retention Is this a current diagnosis for this admission?: Yes - Plan Summary Summary: 10/07/2019 Temperature 97.9 pulse 86, blood pressure 131/76, O2 sat is 97% on room air She states she lives at home with her family and uses no oxygen at home She states she has been on dialysis once before in 2017 for acute kidney failur e, states she lived in [place] at that time Creatinine has improved tremendously now down to 1.33 from a high of 3.02 BUN appears to be stable around 47 today White blood cell count is normal 6.6 platelets 211,000 Patient's pain meds and gabapentin teen have been reduced secondary to her kidney functions Patient may or may not need another hemodialysis treatment tomorrow, nephrology will decide Patient will need to go home on p.o. diuretics. Patient is diuresing well from her IV Lasix 40 mg daily Also will address the Coumadin versus Eliquis issue and her finances Patient is stable and has no complaints 10/08/2019 Vital signs are extremely stable and normal WBC is normal 6.6, BUN is come down to 39 creatinine appears normal 1.12 Blood cultures are negative x5 days Patient is on Lasix 40 mg IV daily Patient diuresed quite well from 25 g of IV albumin and IV Lasix According to nephrology she needs no further hemodialysis We will check with Dr. Blevins about her dialysis IV site whether it can be DC'd Going to DC her Sims catheter today in anticipation for discharge to home tomorrow I spoke with nephrology and she is okay with discontinuing the femoral line. I will call general surgery and discuss with them We will check a PT/INR today and resume Coumadin tonight. Patient was sub therapeutic when she came in - Time Time Spent with patient: 25-34 minutes
[2019-10-08 16:52] LABS: INTERNATIONAL RATION (INR) 1.27
[2019-10-08 16:53] LABS: PARTIAL THROMBOPLASTIN TIME 34.7 SEC (23.5-35.8)
[2019-10-08 17:16] LABS: HEMATOCRIT 28.7 % (36.0-47.0); MEAN CORPUSCULAR HEMOGLOBIN 24.9 pg (27.0-33.4); MEAN CORPUSCULAR HGB CONC 31.3 g/dL (32.0-36.0); MEAN CORPUSCULAR VOLUME 80 fl (80-97); PLATELET COUNT 196 10^3/uL (150-450); RED BLOOD COUNT 3.61 10^6/uL (3.72-5.28); WHITE BLOOD COUNT 6.4 10^3/uL (4.0-10.5)
--- NOTE | 2019-10-08 21:21 | PDOC PROGRESS REPORT ---
Subjective Progress Note for:: 10/08/19 Subjective:: Patient continues to do well. She made about 3200 mL of urine for the last 24 hours. Kidney function continues to improve as well. However she is still swollen but it may take a while before his swelling goes down. Her Sims catheter is planned to be removed today. Reason For Visit: URINARY RETENTION DANNI RESPIRATORY FAILURE HEART Physical Exam Vital Signs: Temp Pulse Resp BP Pulse Ox 98.5 F 82 20 123/70 95 10/08/19 07:23 10/08/19 07:23 10/08/19 03:04 10/08/19 07:23 10/08/19 07:23 Intake & Output 10/07/19 10/08/19 10/09/19 06:59 06:59 06:59 Intake Total 800 1220 Output Total 3100 3200 Balance -2300 -1979 Weight 88 kg 85.4 kg Exam: General appearance: PRESENT: no acute distress, cooperative, well-developed, well-nourished Head exam: PRESENT: atraumatic, normocephalic Eye exam: PRESENT: conjunctiva slightly pale, PERRLA. ABSENT: scleral icterus Neck exam: ABSENT: JVD Respiratory exam: PRESENT: Normal breath sounds. ABSENT: crackles, rales, rhonchi, unlabored, wheezes Cardiovascular exam: PRESENT: Regular rate rhythm -+S1, +S2. ABSENT: diastolic murmur, systolic murmur GI/Abdominal exam: PRESENT: normal bowel sounds, soft. ABSENT: guarding, mass, tenderness Extremities exam: Very slightly improved anasarca with grade 3 bilateral lower extremity pitting edema up to her thighs buttocks and dependent portions of her back Neurological exam: PRESENT: alert, awake, oriented to person, place and time. Skin exam: PRESENT: dry, warm, Cardiovascular exam: PRESENT: +S1, +S2 GI/Abdominal exam: PRESENT: soft. ABSENT: ascites, distended, tenderness Results Laboratory Results: 10/07/19 05:45 10/08/19 04:34 10/08/19 04:34 Sodium 137.5 Potassium 4.6 Chloride 98 Carbon Dioxide 30 Anion Gap 10 BUN 39 H Creatinine 1.12 Est GFR ( Amer) > 60 Glucose 197 H Calcium 9.0 09/30/19 16:26 NT-Pro-B Natriuret Pep 9910 H Impressions: Abdomen/Pelvis CT 09/30/19 01:37 IMPRESSION: 1. Ascites and anasarca suggesting some component of volume overload and/or third spacing. 2. Splenomegaly. Chest X-Ray 10/02/19 13:47 IMPRESSION: No acute findings in the chest. Assessment & Plan - Diagnosis (1) Acute kidney injury superimposed on chronic kidney disease Is this a current diagnosis for this admission?: Yes Plan: Patient most likely has developed some sort of acute tubular necrosis with hypotensive episodes last week. No evidence of hydronephrosis on CT scan. She developed oliguria so I initiated acute renal replacement therapy with acute hemodialysis last Sunday and nothing further. Excellent urine output. Kidney function continues to improve. Continue current management. Patient will need to be sent home with maintenance diuretics at [facility] at Lasix 40 mg p.o. daily. Patient's kidney function needs to be monitored 1 to 2 weeks after discharge. (2) Hypotension Is this a current diagnosis for this admission?: Yes Plan: Within acceptable normal limits without blood pressure medications. If needed for the patient's cardiac condition, may restart carvedilol at a low dose of 3.125 mg p.o. twice daily. (3) Hyponatremia Is this a current diagnosis for this admission?: Yes Plan: Mild and unchanged likely secondary to hypervolemic state. Resolved. (4) Proteinuria Is this a current diagnosis for this admission?: Yes Plan: She has urine protein to creatinine ratio of 3.1. High likelihood of diabetic nephropathy. Serum protein electrophoresis is negative. (5) Anasarca Is this a current diagnosis for this admission?: Yes Plan: Possibly due to nephrotic range proteinuria . Also needs to rule out liver pathology in the presence of splenomegaly. Continue Lasix 40 mg IV daily. (6) Hypoalbuminemia Is this a current diagnosis for this admission?: Yes Plan: She received 25 g of IV albumin, 10/05 followed by IV Lasix. (7) Chronic pain Is this a current diagnosis for this admission?: Yes Plan: Chronic limb pain on her right stump and low back pain on chronic pain medications. Continue gabapentin to just 300 mg nightly and oxycodone to 10 mg every 12 hours only. Patient's pain seems to be controlled with this doses which is much lower than her previous doses upon admission. I do not think she needs any higher doses than this. (8) Splenomegaly Is this a current diagnosis for this admission?: Yes Plan: She has low hepatitis B surface antibody but the rest of her hepatitis panels were negative. Might need hematology consult. Discussed this with Dr. Ortega last week. (9) Anemia Is this a current diagnosis for this admission?: Yes Plan: Patient has iron deficiency and underlying chronic kidney disease. Start oral iron. She received Retacrit. (10) Urinary retention Is this a current diagnosis for this admission?: Yes Plan: Sims catheter is planned to be removed today. Prior to discharge, we have to make sure that the patient is able to empty her bladder completely. She may need to see urology as an outpatient. Possible contributory factors to urinary retention the use of narcotics which I have decreased few days ago. (11) Congestive heart failure Is this a current diagnosis for this admission?: Yes Plan: Echocardiogram showed LVEF of 40 to 45%, grade 2/4 moderate diastolic dysfunction. Currently compensated. (12) Diabetes mellitus type 2 in obese Is this a current diagnosis for this admission?: Yes Plan: Uncontrolled with hemoglobin A1c of 7.9. - Notes Notes: I think patient can be safely discharged home at the end of this week. Patient needs to continue all her medications and needs to follow-up with her primary care provider at least. - Time Time with patient: 15-25 minutes
[2019-10-08] MEDS: ATORVASTATIN CALCIUM 80 MG TABLET PO SCH (21:37)
[2019-10-08] MEDS: GABAPENTIN 300 MG CAPSULE PO SCH (21:37)
[2019-10-08] MEDS ORDERED: WARFARIN SODIUM 5 MG TABLET PO SCH (22:00)
[2019-10-09] MEDS: OXYCODONE HCL IR 5 MG TABLET PO PRN (02:37)
[2019-10-09] MEDS: ONDANSETRON HCL INJ/PF 4 MG/2 ML SDV IV PRN ×3 (04:17→13:44)
[2019-10-09] MEDS: MAGNESIUM HYDROXIDE SUSP 30 ML UDCUP PO PRN (04:26)
[2019-10-09 05:17] LABS: INTERNATIONAL RATION (INR) 1.28; PROTHROMBIN TIME 16.1 SEC (11.4-15.4)
[2019-10-09] MEDS: BUSPIRONE HCL 10 MG TABLET PO SCH ×2 (05:26→13:32)
[2019-10-09 05:27] LABS: ANION GAP 11 (5-19); BLOOD UREA NITROGEN 38 mg/dL (7-20); CALCIUM 9.1 mg/dL (8.4-10.2); CARBON DIOXIDE 30 mmol/L (22-30); CHLORIDE 96 mmol/L (98-107); GLUCOSE 151 mg/dL (75-110); POTASSIUM 4.6 mmol/L (3.6-5.0)
[2019-10-09] MEDS: HEPARIN SOD (PORCINE) 5,000 UNIT/ML 1 ML VIAL SUBCUT SCH ×2 (05:28→13:33)
[2019-10-09] MEDS: HUM INSULIN NPH/REG INSULIN HM 100 UNIT/1 ML 3 ML SUBCUT SCH (08:05)
[2019-10-09] MEDS: INSULIN LISPRO 100 UNIT/ML 3 ML VIAL SUBCUT SCH ×2 (08:05→12:11)
[2019-10-09] MEDS: METOCLOPRAMIDE HCL 10 MG TABLET PO SCH ×2 (08:06→12:09)
[2019-10-09] MEDS: FUROSEMIDE INJ/PF 40 MG/4 ML SDV IV SCH (09:44)
[2019-10-09] MEDS: FENOFIBRATE NANOCRYSTALLIZED 145 MG TABLET PO SCH (09:45)
[2019-10-09] MEDS: ASPIRIN 81 MG TABLET, ENT COATED PO SCH (09:45)
[2019-10-09] MEDS: CITALOPRAM HYDROBROMIDE 20 MG TABLET PO SCH (09:45)
[2019-10-09] MEDS: PANTOPRAZOLE SODIUM 40 MG TABLET.DR PO SCH (09:45)
[2019-10-09] MEDS: DOCUSATE SODIUM 100 MG CAPSULE PO SCH (09:45)
[2019-10-09] MEDS: FERROUS SULFATE 325 MG TABLET PO SCH (09:45)
[2019-10-09] MEDS ORDERED: NA PHOS,M-B/NA PHOS,DI-BA (ADULT) 133 ML ENEMA PR ONE (11:49)
[2019-10-09] MEDS ORDERED: NA PHOS,M-B/NA PHOS,DI-BA (ADULT) 133 ML ENEMA PR PRN (12:30)
[2019-10-09 15:18] VITALS: BP 93/62
--- NOTE | 2019-10-09 17:53 | PDOC DISCHARGE SUMMARY ---
Impression - Admit/DC Date/PCP Admission Date/Primary Care Provider: 09/30/19 07:39 THERESE NEUMANN, DO Discharge Date: 10/09/19 - Discharge Diagnosis (1) Acute kidney injury superimposed on chronic kidney disease Is this a current diagnosis for this admission?: Yes (2) Anasarca Is this a current diagnosis for this admission?: Yes (3) Chronic pain Is this a current diagnosis for this admission?: Yes (4) History of atrial fibrillation Is this a current diagnosis for this admission?: Yes (5) Urinary retention Is this a current diagnosis for this admission?: Yes - Assessment Summary: 10/07/2019 Temperature 97.9 pulse 86, blood pressure 131/76, O2 sat is 97% on room air She states she lives at home with her family and uses no oxygen at home She states she has been on dialysis once before in 2017 for acute kidney failure, states she lived in [place] at that time Creatinine has improved tremendously now down to 1.33 from a high of 3.02 BUN appears to be stable around 47 today White blood cell count is normal 6.6 platelets 211,000 Patient's pain meds and gabapentin teen have been reduced secondary to her kidney functions Patient may or may not need another hemodialysis treatment tomorrow, nephrology will decide Patient will need to go home on p.o. diuretics. Patient is diuresing well from her IV Lasix 40 mg daily Also will address the Coumadin versus Eliquis issue and her finances Patient is stable and has no complaints 10/08/2019 Vital signs are extremely stable and normal WBC is normal 6.6, BUN is come down to 39 creatinine appears normal 1.12 Blood cultures are negative x5 days Patient is on Lasix 40 mg IV daily Patient diuresed quite well from 25 g of IV albumin and IV Lasix According to nephrology she needs no further hemodialysis We will check with Dr. Blevins about her dialysis IV site whether it can be DC'd Going to DC her Sims catheter today in anticipation for discharge to home tomorrow I spoke with nephrology and she is okay with discontinuing the femoral line. I will call general surgery and discuss with them We will check a PT/INR today and resume Coumadin tonight. Patient was subtherapeutic when she came in Patient was discharged home today in good condition Patient was originally admitted 9 days ago for an extensive past medical history of diabetes ,peripheral vascular disease, status post right BKA, gastroparesis, LOUISA, CAD ,atrial fib, status post coronary artery bypass graft, and nephrolithiasis. Patient has a 2-day history of difficulty urinating. In the emergency room she was found to have 500 mL's in her bladder showing proteinuria. T scan does not show hydronephrosis or outlet obstruction but it does show anasarca Patient was admitted for in and out catheter every 6 hours as well as nephrology consult with likely nephrotic syndrome and sliding scale of insulin Nephrology saw the patient and thought that she was non-oliguric due to urinary retention from a possible neurogenic bladder. Patient finally started producing urine once she was placed on Lasix. Patient's fluids were placed on hold. Close I&O monitoring Patient did not make a significant improvement with IV diuretics and her kidney functions continue to worsen therefore the v belt finisher felt that the patient would do well with renal replacement therapy. She had had this done once before in 2016. Patient had a triple-lumen catheter placed by surgery and underwent 2 separate days of dialysis. Since then patient has been producing quite a large amount of urine over 24- hour. Secondary to the diuretics. She was producing over 3000 mL's daily. The time of discharge her BUN is stabilized around 38. Patient came in with a creatinine of 1.86 and it had gone as high as 3.02 but at the time of discharge it was 1.05 Patient was discharged home on iron 325, Lasix 40 mg daily, 70/30 insulin 5 units twice daily, Coumadin 5 mg daily Patient will be seen by her chainstitch seat joiner Sunday for a repeat PT/INR. INR at the time of discharge was 1.28. Patient knows that her goal is between 2-1/2 and 3- 1/2. Patient will need to have her renal functions monitored for the next 1 to 2 weeks by her primary care provider. Patient's questions were answered and she seemed eager to be discharged. Patient's triple-lumen catheter was just continued prior to discharge. - Additional Information Resuscitation Status: Full Code Discharge Diet: Diabetic Discharge Activity: Activity As Tolerated Referrals: ENRIQUE MCKINNON MD [ACTIVE STAFF] - 10/13/19 11:15 am THERESE NEUMANN DO [Primary Care Provider] - 10/16/19 9:30 am Prescriptions: Warfarin Sodium [Coumadin 5 mg Tablet] 5 mg PO QHS 30 Days #30 tablet Ferrous Sulfate [Feosol 325 mg Tablet] 325 mg PO DAILY 30 Days #30 tablet Hum Insulin NPH/Reg Insulin Hm [Insulin 70-30 (NPH/Reg) 100 unit/mL] 5 unit SUBCUT BIDACBS 30 Days #1 unit Furosemide [Lasix 40 mg Tablet] 40 mg PO QAM #30 tablet Home Medications: Acetaminophen [Tylenol Extra Strength 500 mg Tablet] 1,000 mg PO DAILYP PRN 07/02/19 Acetaminophen/Diphenhydramine [Tylenol Pm Ex-Strength Caplet] 1 each PO HSP PRN 07/02/19 Aspirin [Adult Low Dose Aspirin EC] 81 mg PO DAILY 07/02/19 Buspirone HCl [Buspar 15 mg Tablet] 7.5 mg PO Q12 07/02/19 Carvedilol [Coreg 3.125 mg Tablet] 3.125 mg PO Q12 07/02/19 Citalopram Hydrobromide [Celexa 40 mg Tablet] 40 mg PO DAILY 07/02/19 Fenofibrate Nanocrystallized [Tricor 145 mg Tablet] 145 mg PO DAILY 07/02/19 Lisinopril [Prinivil 5 mg Tablet] 5 mg PO DAILY 07/02/19 Metformin HCl [Glucophage] 500 mg PO BID 07/02/19 Metoclopramide HCl [Reglan 10 mg Tablet] 10 mg PO ACHS 07/02/19 NPH, Human Insulin Isophane [Humulin N (NPH) Insulin 100 unit/mL] 6 unit INJ DAILY 07/02/19 Ondansetron HCl [Zofran 4 mg Tablet] 4 mg PO PRN PRN 07/02/19 Oxycodone HCl [Oxy-Ir 5 mg Tablet] 10 mg PO Q8HP PRN 07/02/19 Pantoprazole Sodium [Protonix [address] Tablet] 40 mg PO DAILY 07/02/19 Trazodone HCl [Desyrel 50 mg Tablet] 50 mg PO HSP PRN 07/02/19 Atorvastatin Calcium [Lipitor 80 mg Tablet] 80 mg PO QHS tablet 07/04/19 Ascorbic Acid [Vitamin C] 125 mg PO DAILY 09/30/19 Diphenhydramine HCl [Benadryl] 25 mg PO DAILYP PRN 09/30/19 Acetaminophen [Tylenol 325 mg Tablet] 650 mg PO Q4HP PRN tablet 10/09/19 Docusate Sodium [Colace 100 mg Capsule] 100 mg PO BID capsule 10/09/19 Ferrous Sulfate [Feosol 325 mg Tablet] 325 mg PO DAILY 30 Days #30 tablet 10/09/19 Furosemide [Lasix 40 mg Tablet] 40 mg PO QAM #30 tablet 10/09/19 Gabapentin [Neurontin 300 mg Capsule] 300 mg PO QHS capsule 10/09/19 Hum Insulin NPH/Reg Insulin Hm [Insulin 70-30 (NPH/Reg) 100 unit/mL] 5 unit SUBCUT BIDACBS 30 Days #1 unit 10/09/19 Mag Hydrox/Al Hydrox/Simeth [Maalox Plus Susp 30 Udcup] 30 ml PO Q6HP PRN udc 10/09/19 Magnesium Hydroxide [Milk of Magnesia 30 ml Udcup] 30 ml PO HSP PRN udc 10/09/19 Warfarin Sodium [Coumadin 5 mg Tablet] 5 mg PO QHS 30 Days #30 tablet 10/09/19 History of Present Illiness History of Present Illness: HELDER SERNA is a 49 year old female Physical Exam Vital Signs: Temp Pulse Resp BP Pulse Ox 98.4 F 82 17 93/62 L 98 10/09/19 15:08 10/09/19 15:08 10/09/19 15:08 10/09/19 15:08 10/09/19 15:08 Intake & Output 10/08/19 10/09/19 10/10/19 06:59 06:59 06:59 Intake Total 1220 1421 480 Output Total 3200 2830 500 Balance -1979 Weight 85.4 kg 84.4 kg Results Laboratory Results: WBC 6.4 10^3/uL (4.0-10.5) 10/08/19 16:54 RBC 3.61 10^6/uL (3.72-5.28) L 10/08/19 16:54 Hgb 9.0 g/dL (12.0-15.5) L 10/08/19 16:54 Hct 28.7 % (36.0-47.0) L 10/08/19 16:54 MCV 80 fl (80-97) 10/08/19 16:54 MCH 24.9 pg (27.0-33.4) L 10/08/19 16:54 MCHC 31.3 g/dL (32.0-36.0) L 10/08/19 16:54 RDW 20.0 % (11.5-14.0) H 10/08/19 16:54 Plt Count 196 10^3/uL (150-450) 10/08/19 16:54 Lymph % (Auto) 15.0 % (13-45) 10/07/19 05:45 [place] % (Auto) 8.8 % (3-13) 10/07/19 05:45 Eos % (Auto) 1.3 % (0-6) 10/07/19 05:45 Baso % (Auto) 0.5 % (0-2) 10/07/19 05:45 Reticulocyte # 0.162 10^6/uL (0.028-0.122) H 09/29/19 23:22 Absolute Neuts (auto) 4.9 10^3/uL (1.7-8.2) 10/07/19 05:45 Absolute Lymphs (auto) 1.0 10^3/uL (0.5-4.7) 10/07/19 05:45 Absolute Monos (auto) 0.6 10^3/uL (0.1-1.4) 10/07/19 05:45 Absolute Eos (auto) 0.1 10^3/uL (0.0-0.6) 10/07/19 05:45 Absolute Basos (auto) 0.0 10^3/uL (0.0-0.2) 10/07/19 05:45 Total Counted 100 10/03/19 05:36 Seg Neuts % (Manual) 69 % (42-78) 10/03/19 05:36 Seg Neutrophils % 74.4 % (42-78) 10/07/19 05:45 Lymphocytes % (Manual) 23 % (13-45) 10/03/19 05:36 Monocytes % (Manual) 8 % (3-13) 10/03/19 05:36 Eosinophils % (Manual) 0 % (0-6) 10/03/19 05:36 Basophils % (Manual) 0 % (0-2) 10/03/19 05:36 Abs Neuts (Manual) 5.9 10^3/uL (1.7-8.2) 10/03/19 05:36 Abs Lymphs (Manual) 2.0 10^3/uL (0.5-4.7) 10/03/19 05:36 Abs Monocytes (Manual) 0.7 10^3/uL (0.1-1.4) 10/03/19 05:36 Absolute Eos (Manual) 0.0 10^3/uL (0.0-0.6) 10/03/19 05:36 Abs Basophils (Manual) 0.0 10^3/uL (0.0-0.2) 10/03/19 05:36 Nucleated RBCs 4 /100 WBC (0) 10/03/19 05:36 Platelet Comment ADEQUATE 10/03/19 05:36 Polychromasia SLIGHT 10/03/19 05:36 Hypochromasia SLIGHT 10/03/19 05:36 Poikilocytosis 1+ 10/03/19 05:36 Anisocytosis 2+ 10/03/19 05:36 Microcytosis SLIGHT 10/03/19 05:36 Tear Drop Cells SLIGHT 10/03/19 05:36 Ovalocytes SLIGHT 10/03/19 05:36 Gu[place]upe Cells SLIGHT 10/03/19 05:36 Retic Count (auto) 4.74 % (0.66-2.85) H 09/29/19 23:22 PT 16.1 SEC (11.4-15.4) H 10/09/19 04:47 INR 1.28 10/09/19 04:47 APTT 34.7 SEC (23.5-35.8) 10/08/19 16:31 Sodium 136.8 mmol/L (137-145) L 10/09/19 04:47 Potassium 4.6 mmol/L (3.6-5.0) 10/09/19 04:47 Chloride 96 mmol/L (98-107) L 10/09/19 04:47 Carbon Dioxide 30 mmol/L (22-30) 10/09/19 04:47 Anion Gap 11 (5-19) 10/09/19 04:47 BUN 38 mg/dL (7-20) H 10/09/19 04:47 Creatinine 1.05 mg/dL (0.52-1.25) 10/09/19 04:47 Est GFR ( Amer) > 60 (>60) 10/09/19 04:47 Est GFR (MDRD) Non-Af 55 (>60) L 10/09/19 04:47 Glucose 151 mg/dL (75-110) H 10/09/19 04:47 POC Glucose 246 mg/dL (70-110) H 10/09/19 12:08 Hemoglobin A1c % 7.9 % (4.7-6.0) H 09/29/19 23:22 Lactic Acid 2.2 mmol/L (0.7-2.1) H 09/30/19 01:42 Calcium 9.1 mg/dL (8.4-10.2) 10/09/19 04:47 Iron 39.1 ug/dL (37-170) 09/30/19 06:34 TIBC 338 ug/dL (250-450) 09/30/19 06:34 % Saturation 12 % 09/30/19 06:34 Ferritin 83.20 ng/mL (11.1-264.0) 09/30/19 06:34 Total Bilirubin 0.4 mg/dL (0.2-1.3) 10/03/19 05:36 Direct Bilirubin 0.1 mg/dL (0.0-0.4) 10/03/19 05:36 Neonat Total Bilirubin Not Reportable 10/03/19 05:36 Neonat Direct Bilirubin Not Reportable 10/03/19 05:36 Neonat Indirect Bili Not Reportable 10/03/19 05:36 AST 72 U/L (14-36) H 10/03/19 05:36 ALT 46 U/L (<35) H 10/03/19 05:36 Alkaline Phosphatase 174 U/L (38-126) H 10/03/19 05:36 NT-Pro-B Natriuret Pep 9910 pg/mL (<125) H 09/30/19 16:26 Total Protein 6.3 g/dL (6.3-8.2) 10/03/19 05:36 Total Protein 5.9 g/dL (6.0-8.5) L 10/03/19 05:36 Prealbumin 20.1 mg/dL (17.6-36.0) 09/30/19 01:42 Albumin 3.6 g/dL (3.5-5.0) 10/07/19 05:45 Globulin 3.3 g/dL (2.2-3.9) 10/03/19 05:36 Albumin/Globulin Ratio 0.8 (0.7-1.7) 10/03/19 05:36 Zeecw-7-Bcjrqdxeo 0.4 g/dL (0.0-0.4) 10/03/19 05:36 Beta Globulins 0.9 g/dL (0.7-1.3) 10/03/19 05:36 Gamma Globulins 1.0 g/dL (0.4-1.8) 10/03/19 05:36 M-Devante Not Observed g/dL (Not Observ) 10/03/19 05:36 PEP Note Comment (.) 10/03/19 05:36 PEP Interpretation Comment (.) 10/03/19 05:36 Triglycerides 281 mg/dL (<150) H 09/30/19 01:42 Cholesterol 98.52 mg/dL (0-200) 09/30/19 01:42 LDL Cholesterol Direct 37 mg/dL (<100) 09/30/19 01:42 VLDL Cholesterol 56.2 mg/dL (10-31) H 09/30/19 01:42 HDL Cholesterol 21 mg/dL (>40) L 09/30/19 01:42 Lipase 26.0 U/L (23-300) 09/29/19 23:22 Vitamin B12 324.0 pg/mL (239-931) 09/30/19 06:34 Folate 9.21 ng/mL (>2.76) 09/30/19 06:34 TSH 2.54 uIU/mL (0.47-4.68) 09/30/19 03:14 Urine Color DARK YELLOW 10/02/19 10:03 Urine Appearance SLIGHTLY-CLOUDY 10/02/19 10:03 Urine pH 5.0 (5.0-9.0) 10/02/19 10:03 Ur Specific Strang 1.016 10/02/19 10:03 Urine Protein >=500 mg/dL (NEGATIVE) H 10/02/19 10:03 Urine Glucose (UA) NEGATIVE mg/dL (NEGATIVE) 10/02/19 10:03 Urine Ketones NEGATIVE mg/dL (NEGATIVE) 10/02/19 10:03 Urine Blood NEGATIVE (NEGATIVE) 10/02/19 10:03 Urine Nitrite NEGATIVE (NEGATIVE) 10/02/19 10:03 Urine Bilirubin NEGATIVE (NEGATIVE) 10/02/19 10:03 Urine Urobilinogen NEGATIVE mg/dL (<2.0) 10/02/19 10:03 Ur Leukocyte Esterase TRACE (NEGATIVE) H 10/02/19 10:03 Urine WBC (Auto) 0 /HPF 09/30/19 00:55 Urine RBC (Auto) 1 /HPF 09/30/19 00:55 U Hyaline Cast (Auto) 4 /LPF 09/30/19 00:55 Urine Bacteria (Auto) TRACE /HPF 09/30/19 00:55 Urine RBC 1-5 /HPF 10/02/19 10:03 Urine WBC 1-5 /HPF 10/02/19 10:03 Ur Squamous Epith Cells FEW /HPF 10/02/19 10:03 Squamous Epi Cells Auto <1 /HPF 09/30/19 00:55 Urine Bacteria 2+ /HPF 10/02/19 10:03 Hyaline Casts 5-10 /LPF 10/02/19 10:03 Urine Mucus TRACE 10/02/19 10:03 Urine Mucus (Auto) RARE /LPF 09/30/19 00:55 Urine Creatinine 172.6 mg/dL (15-278) 10/02/19 10:03 Protein/Creatinin Ratio 3.1 mg/mg (0.0-0.2) H 10/02/19 10:03 Urine Total Protein 540.2 mg/dL (<12) H 10/02/19 10:03 Urine Ascorbic Acid NEGATIVE (NEGATIVE) 10/02/19 10:03 Urine Opiates Screen UNCONFIRMED POSITIVE 09/30/19 00:55 Urine Methadone Screen NEGATIVE 09/30/19 00:55 Ur Barbiturates Screen NEGATIVE 09/30/19 00:55 Ur Phencyclidine Scrn NEGATIVE 09/30/19 00:55 Ur Amphetamines Screen NEGATIVE 09/30/19 00:55 U Benzodiazepines Scrn NEGATIVE 09/30/19 00:55 Urine Cocaine Screen NEGATIVE 09/30/19 00:55 U Marijuana (THC) Screen NEGATIVE 09/30/19 00:55 Agyfm-3-Uzuonisxj AMANDO 1.0 g/dL (0.4-1.0) 10/03/19 05:36 Hep Bs Antigen Negative (Negative) 10/03/19 05:36 Hep Bs Antibody, Quant 4.4 mIU/mL (Immunity>9) L 10/03/19 05:36 Hep B Core Total Ab Negative (Negative) 10/03/19 05:36 HCV Quantitation HCV Not Detected IU/mL (.) 10/03/19 05:36 HCV RNA PCR Test Info Comment (.) 10/03/19 05:36 09/30/19 16:26 NT-Pro-B Natriuret Pep 9910 H Impressions: Chest X-Ray 09/30/19 00:00 IMPRESSION: NO ACUTE RADIOGRAPHIC FINDING IN THE CHEST. Abdomen/Pelvis CT 09/30/19 01:37 IMPRESSION: 1. Ascites and anasarca suggesting some component of volume overload and/or third spacing. 2. Splenomegaly. Chest X-Ray 10/02/19 13:47 IMPRESSION: No acute findings in the chest. Stroke Is this a Stroke Patient?: No Acute Heart Failure - Is this a Heart Failure Patient?: No
== END 2019-10-09 16:20 | disposition home or self-care (01) | DRG 683 ==
LOC: ER 22:30 → EH 09-30 07:39 → 3N 09-30 09:46 → 3W 10-06 15:55
PROVIDERS: ADMIT Internal Medicine; ATTEND Physician Assistant
PROC: 06H033Z Insertion of Infusion Device into Inferior Vena Cava, Percutaneous Approach (ICD-10-PCS; principal; 2019-10-03)
PROC: 5A1D70Z Performance of Urinary Filtration, Intermittent, Less than 6 Hours Per Day (ICD-10-PCS; 2019-10-03)
DX: N17.9 Acute kidney failure, unspecified (principal); I13.0 Hypertensive heart and chronic kidney disease with heart failure and stage 1 through stage 4 chronic kidney disease, or unspecified chronic kidney disease; E66.2 Morbid (severe) obesity with alveolar hypoventilation; E87.2 Acidosis; I73.9 Peripheral vascular disease, unspecified; I50.9 Heart failure, unspecified; E11.43 Type 2 diabetes mellitus with diabetic autonomic (poly)neuropathy; R33.9 Retention of urine, unspecified; K31.84 Gastroparesis; I25.10 Atherosclerotic heart disease of native coronary artery without angina pectoris; I48.91 Unspecified atrial fibrillation; E87.5 Hyperkalemia; G54.6 Phantom limb syndrome with pain; R16.1 Splenomegaly, not elsewhere classified; Z89.511 Acquired absence of right leg below knee; E11.22 Type 2 diabetes mellitus with diabetic chronic kidney disease; N18.9 Chronic kidney disease, unspecified; E88.09 Other disorders of plasma-protein metabolism, not elsewhere classified; D50.9 Iron deficiency anemia, unspecified; M19.90 Unspecified osteoarthritis, unspecified site; R80.9 Proteinuria, unspecified; G89.29 Other chronic pain; Z95.1 Presence of aortocoronary bypass graft; F32.9 Major depressive disorder, single episode, unspecified; Z90.49 Acquired absence of other specified parts of digestive tract; Z87.891 Personal history of nicotine dependence; Z82.49 Family history of ischemic heart disease and other diseases of the circulatory system; Z86.718 Personal history of other venous thrombosis and embolism; Z83.3 Family history of diabetes mellitus; Z79.82 Long term (current) use of aspirin; Z79.4 Long term (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 of insulin; Z79.899 Other long term (current) drug therapy; Z88.8 Allergy status to other drugs, medicaments and biological substances; Z79.01 Long term (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 of anticoagulants
CPT/HCPCS: 36415; 71045; 71046; 74176; 80048; 80053; 80061; 80307; 81001; 82040; 82570; 82607; 82728; 82746; 82962; 83036; 83540; 83550; 83605; 83690; 83880; 84134; 84156; 84165; 84443; 85025; 85027; 85045; 85610; 85730; 86317; 86704; 87040; 87340; 87522; 90686; 93005; 93010; 93306; 99284; J0610; C1752; G0378; J0696; J1644; J1815; J1940; J2405; J3490; J7030; P9047; Q5106

== ENCOUNTER 2019-10-17 16:35 | Emergency (ER) | payer MEDICARE ==
[2019-10-17 18:03] LABS: ABSOLUTE BASOPHILS # (AUTO) 0.1 10^3/uL (0.0-0.2); ABSOLUTE EOSINOPHILS # (AUTO) 0.1 10^3/uL (0.0-0.6); ABSOLUTE LYMPHOCYTES (AUTO) 1.3 10^3/uL (0.5-4.7); ABSOLUTE MONOCYTES (AUTO) 0.4 10^3/uL (0.1-1.4); ABSOLUTE NEUT (AUTO) 4.1 10^3/uL (1.7-8.2); BASOPHILS % (AUTO) 1.2 % (0-2); EOSINOPHILS % (AUTO) 2.1 % (0-6); HEMATOCRIT 29.9 % (36.0-47.0); HEMOGLOBIN 9.1 g/dL (12.0-15.5); LYMPHOCYTES % (AUTO) 21.2 % (13-45); MEAN CORPUSCULAR HEMOGLOBIN 24.7 pg (27.0-33.4); MEAN CORPUSCULAR HGB CONC 30.4 g/dL (32.0-36.0); MEAN CORPUSCULAR VOLUME 81 fl (80-97); MONOCYTES % (AUTO) 6.6 % (3-13); PLATELET COUNT 230 10^3/uL (150-450); RED BLOOD COUNT 3.68 10^6/uL (3.72-5.28); RED CELL DISTRIBUTION WIDTH 20.1 % (11.5-14.0); SEGMENTED NEUTROPHILS % (AUTO) 68.9 % (42-78); TOTAL CELLS COUNTED % (AUTO) 100 %; WHITE BLOOD COUNT 5.9 10^3/uL (4.0-10.5)
[2019-10-17 18:09] LABS: ALBUMIN 3.3 g/dL (3.5-5.0); ALKALINE PHOSPHATASE 73 U/L (38-126); ANION GAP 9 (5-19); ASPARTATE AMINO TRANSFERASE 26 U/L (14-36); BILIRUBIN,DIRECT 0.1 mg/dL (0.0-0.4); BILIRUBIN,TOTAL 0.4 mg/dL (0.2-1.3); BLOOD UREA NITROGEN 41 mg/dL (7-20); CALCIUM 8.9 mg/dL (8.4-10.2); CARBON DIOXIDE 27 mmol/L (22-30); CHLORIDE 99 mmol/L (98-107); GLUCOSE 259 mg/dL (75-110); TOTAL PROTEIN 6.4 g/dL (6.3-8.2)
[2019-10-17 18:15] LABS: INTERNATIONAL RATION (INR) 4.14; PROTHROMBIN TIME 41.1 SEC (11.4-15.4)
[2019-10-17 18:23] LABS: TROPONIN I 0.095 ng/mL
--- NOTE | 2019-10-17 18:24 | ER Document Report ---
ED General - General Chief Complaint: Shortness Of Breath Stated Complaint: TROUBLE BREATHING Time Seen by Provider: 10/17/19 17:35 Primary Care Provider: THERESE NEUMANN DO [Primary Care Provider] - Follow up as needed TRAVEL OUTSIDE OF THE [place] IN LAST 30 DAYS: No - HPI Notes: Patient is a 49-year-old female with an extensive medical history, including coronary artery disease, CHF, renal failure, who presents to the emergency department for evaluation of shortness of breath and weight gain. She states she is gained significant weight since being discharged. She has worsened edema all the way to her breasts. She has shortness of breath with exertion. She also complains of a throbbing left-sided chest pain that is underneath her left breast. This pain is worsened by movement and touching, nothing seems to make it better. It only lasts a few seconds when it comes on. She states she is still urinating about 3 times a day. She has been taking her medications as prescribed. - Related Data Allergies/Adverse Reactions: amlodipine Allergy (Severe, Verified 09/30/19 08:47) Hallucinations isosorbide [From Imdur] Allergy (Intermediate, Verified 09/30/19 08:47) RASH zolpidem [From Ambien] Adverse Reaction (Severe, Verified 09/30/19 08:47) Hallucinations Past Medical History - General Information source: Patient - Social History Smoking Status: Former Smoker Chew tobacco use (# tins/day): No Frequency of alcohol use: None Drug Abuse: None Family History: CAD, CVA, DM, Hypertension, Malignancy, Other - Kidney disease Patient has suicidal ideation: No Patient has homicidal ideation: No - Past Medical History Cardiac Medical History: Reports: Hx Atrial Fibrillation, Hx Congestive Heart Failure, Hx Coronary Artery Disease, Hx DVT, Hx Heart Attack - x3 per patient, Hx Hypertension, Hx Peripheral Vascular Disease Pulmonary Medical History: Reports: Hx Bronchitis, Hx COPD, Hx Pneumonia Neurological Medical History: Denies: Hx Migraine, Hx Seizures Endocrine Medical History: Reports: Hx Diabetes Mellitus Type 2. Denies: Hx Diabetes Mellitus Type 1, Hx Hyperthyroidism, Hx Hypothyroidism Renal/ Medical History: Reports: Hx Kidney Stones, Hx Renal Insufficiency. Denies: Hx Peritoneal Dialysis GI Medical History: Reports: Hx Gastroesophageal Reflux Disease, Hx Hiatal Hernia, Hx Irritable Bowel. Denies: Hx Cirrhosis, Hx Crohn's Disease, Hx Hepatitis, Hx Ulcerative Colitis Musculoskeletal Medical History: Reports Hx Arthritis, Denies Hx Fibromyalgia, Denies Hx Gout, Reports Hx Musculoskeletal Deformity, Reports Hx Musculoskeletal Trauma Skin Medical History: Reports Hx Cellulitis, Denies Hx Eczema, Denies Hx Psoriasis Psychiatric Medical History: Reports: Hx Anxiety, Hx Depression Infectious Medical History: Denies: Hx Hepatitis Past Surgical History: Reports: Hx Abdominal Surgery, Hx Cardiac Catheterization, Hx Cardiac Surgery - CABG, Hx Section - x2, Hx Cholecystectomy, Hx Coronary Artery Bypass Graft - x3, Hx Herniorrhaphy - Shady tral hernia, Hx Orthopedic Surgery - Knee surgery, Hx Tubal Ligation, Hx Vascular Surgery - Left iliofemoral bypass, Other - Peripheral nerve stimulator implantation - Immunizations Immunizations up to date: Yes Hx Diphtheria, Pertussis, Tetanus Vaccination: Yes Hx Pneumococcal Vaccination: 07/23/09 Review of Systems - Review of Systems Constitutional: See HPI Cardiovascular: See HPI Musculoskeletal: See HPI -: Yes All other systems reviewed and negative Physical Exam - Vital signs Vitals: Resp BP 16 136/81 H 10/17/19 16:43 10/17/19 16:43 - Notes Notes: This is a 49-year-old female who appears her stated age, no acute distress. Head is normocephalic and appears atraumatic, pupils are equal round, reactive to light. Oral mucosa is moist. Uvula is midline. Heart is irregularly irregular. Lungs reveal clear breath sounds without wheezes, rales, rhonchi. Abdomen is distended with positive fluid, pitting edema to the skin of the a bdomen. No tenderness, normoactive bowel sounds. Patient has a right BKA. Left lower extremity has 3+ pitting edema to the thigh. She has some skin breakdown with transudate of fluid leaking from leg wounds on the dorsum of her foot. Neurovascularly intact distally. Course - Re-evaluation Re-evalutation: 10/17/19 18:28 Patient presents to the emergency department for evaluation. She was recently discharged from the hospital. I went back through her weights. She has in fact gained 16 pounds since her discharge. Laboratory investigations, EKG, chest x- ray were ordered. Patient is not currently having any chest pain at this time. Labs are pending, we will continue to monitor. 10/17/19 23:15 Laboratory investigations revealed a very mildly elevated troponin, but below the limits of concern for ACS. Delta troponin was largely unremarkable as well. I reviewed this patient's recent stay in the hospital. She did diurese well with IV Lasix. She was given 40 mg of IV Lasix and had significant diuresis with this. I spoke with Dr. Murphy in regards to this patient. He is familiar with her. In the absence of any EKG changes or significant hypoxia, he does believe that increasing her Lasix dose as an outpatient to double and having her follow-up on Sunday in his clinic is a reasonable plan of action. The patient had at least 1 L of urine output after IV Lasix. She is breathing 14-18 times a minute, and has been 94 to 97% on room air. I did review her chest x-ray, where there was some note of some haziness in her left lower lobe. The patient has had no cough, no fevers. She has no leukocytosis. I am not concerned about the possibility of a pneumonia at this time. We talked at length, and I explained to the patient that if she develops worsening she could return at any time. She voiced understanding. Otherwise she is to increase her Lasix to 40 mg twice a day and follow-up with Dr. Murphy on Sunday. - Vital Signs Vital signs: Temp Pulse Resp BP Pulse Ox 98.1 F 87 14 144/90 H 100 10/17/19 17:37 10/17/19 16:56 10/17/19 23:00 10/17/19 17:00 10/17/19 23:00 - Laboratory Result Diagrams: 10/17/19 17:36 10/17/19 17:36 Laboratory results interpreted by me: 10/17/19 10/17/19 10/17/19 17:36 17:36 17:36 RBC 3.68 L Hgb 9.1 L Hct 29.9 L MCH 24.7 L MCHC 30.4 L RDW 20.1 H PT 41.1 H Sodium 135.3 L BUN 41 H Creatinine 1.42 H Est GFR ( Amer) 47 L Est GFR (MDRD) Non-Af 39 L Glucose 259 H NT-Pro-B Natriuret Pep Albumin 3.3 L 10/17/19 17:36 RBC Hgb Hct MCH MCHC RDW PT Sodium BUN Creatinine Est GFR ( Amer) Est GFR (MDRD) Non-Af Glucose NT-Pro-B Natriuret Pep 9330 H Albumin - Diagnostic Test Radiology reviewed: Image reviewed, Reports reviewed - EKG Interpretation by Me Additional EKG results interpreted by me: 10/17/19 23:17 Sinus mechanism with a rate of 88 bpm, PVCs noted. Normal axis, IVCD. Anterolateral ST changes concerning for possible ischemia, but no significant change when compared to prior study of October 02, 2019. No ST elevation noted. Discharge - Discharge Clinical Impression: Congestive heart failure Qualifiers: Heart failure chronicity: acute on chronic Condition: Stable Disposition: HOME, SELF-CARE Instructions: Congestive Heart Failure ([facility]) Additional Instructions: Please increase your Lasix to 40 mg twice a day as discussed, starting tomorrow morning. Follow-up with Dr. Murphy, you can walk into his clinic anytime on Sunday. If you develop worsening pain, difficulty breathing, decreased urination, or any other new or concerning symptoms, please return immediately to the emergency department for evaluation. Referrals: THERESE NEUMANN, [Primary Care Provider] - Follow up as needed
--- NOTE | 2019-10-17 18:30 | RADIOLOGY REPORT (SQ) ---
EXAM DESCRIPTION: CHEST 2 VIEWS IMAGES COMPLETED DATE/TIME: 10/17/2019 6:12 pm REASON FOR STUDY: CHF, edema COMPARISON: 10/02/2019 EXAM PARAMETERS: NUMBER OF VIEWS: two views TECHNIQUE: Digital Frontal and Lateral radiographic views of the chest acquired. RADIATION DOSE: NA LIMITATIONS: none FINDINGS: LUNGS AND PLEURA: The slight blurring of the left hemidiaphragm. MEDIASTINUM AND HILAR STRUCTURES: No masses or contour abnormalities. HEART AND VASCULAR STRUCTURES: Cardiomegaly. No pulmonary edema. BONES: No acute findings. HARDWARE: Sternotomy wires. OTHER: No other significant finding. IMPRESSION: Cardiomegaly without pulmonary edema. Cannot exclude a limited left lower lobe infiltra te. TECHNICAL DOCUMENTATION: JOB ID: [id number] 2010 [employer] All Rights Reserved Reading location - IP/workstation name: [email or web address]
--- NOTE | 2019-10-17 19:23 | EKG REPORT ---
SEVERITY:- ABNORMAL ECG - SINUS RHYTHM MULTIPLE VENTRICULAR PREMATURE COMPLEXES NONSPECIFIC INTRAVENTRICULAR CONDUCTION DELAY MINIMAL ST DEPRESSION, ANTEROLATERAL LEADS : Confirmed by: Rojas Jo MD 17-Oct-2019 19:21:49
[2019-10-17] MEDS ORDERED: FUROSEMIDE INJ/PF 40 MG/4 ML SDV IV ONE (20:02)
[2019-10-17] MEDS ORDERED: OXYCODONE HCL IR 5 MG TABLET PO ONE (21:52)
[2019-10-18 00:25] VITALS: BP 135/91
== END 2019-10-18 00:15 | disposition home or self-care (01) ==
LOC: ER 16:35
DX: I13.0 Hypertensive heart and chronic kidney disease with heart failure and stage 1 through stage 4 chronic kidney disease, or unspecified chronic kidney disease (principal); E11.22 Type 2 diabetes mellitus with diabetic chronic kidney disease; N18.9 Chronic kidney disease, unspecified; I50.9 Heart failure, unspecified; R63.5 Abnormal weight gain; R07.9 Chest pain, unspecified; I49.3 Ventricular premature depolarization; I25.10 Atherosclerotic heart disease of native coronary artery without angina pectoris; J44.9 Chronic obstructive pulmonary disease, unspecified; E11.51 Type 2 diabetes mellitus with diabetic peripheral angiopathy without gangrene; R06.02 Shortness of breath; Z79.899 Other long term (current) drug therapy; Z95.1 Presence of aortocoronary bypass graft; Z87.891 Personal history of nicotine dependence; Z88.8 Allergy status to other drugs, medicaments and biological substances
CPT/HCPCS: 93005; 99285; 96374; 36415; 85025; 85610; 80053; 84484; 83880; 71046; 93010; J1940; A9270

== ENCOUNTER 2019-10-24 16:27 | Inpatient (IN) | payer MEDICARE ==
--- NOTE | 2019-10-24 16:45 | ER Document Report ---
ED General Pain - General Chief Complaint: Abdominal Distention Stated Complaint: SHORTNESS OF BREATH Time Seen by Provider: 10/24/19 16:33 Primary Care Provider: THERESE NEUMANN DO [Primary Care Provider] - Follow up as needed Mode of Arrival: Ambulatory Information source: Patient Notes: 49-year-old female presented to ED for complaint of shortness of breath generalized body edema with weeping from legs arms and abdomen, severe abdominal distention, history of diabetes and kidney dialysis. States she has not had a dialysis 3 weeks. She states she was seen in the emergency room on Sunday and was told to follow-up with her doctor which they did a telephone referral and did not see her. She states her abdomen has been slowly getting larger and larger over the last couple weeks much worse in the last couple days. She does have grossly distended abdomen patient is very short of breath. 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 She is alert oriented speaking in full sentences but very short of breath. TRAVEL OUTSIDE OF THE [place] IN LAST 30 DAYS: No - HPI Onset: Other - Last couple weeks much worse last couple days Onset/Duration: Gradual, Worse Quality of pain: Pressure, Sharp, Throbbing Severity: Moderate Pain Level: 3 Context: Chronic problem Exacerbated by: Supine, Movement, Walking, Coughing, Deep breathing Relieved by: Denies Similar symptoms previously: Yes Recently seen / treated by doctor: Yes - Related Data Allergies/Adverse Reactions: amlodipine Allergy (Severe, Verified 09/30/19 08:47) Hallucinations isosorbide [From Imdur] Allergy (Intermediate, Verified 09/30/19 08:47) RASH zolpidem [From Ambien] Adverse Reaction (Severe, Verified 09/30/19 08:47) Hallucinations Past Medical History - General Information source: Patient - Social History Smoking Status: Never Smoker Frequency of alcohol use: None Drug Abuse: None Lives with: Family Family History: CAD, CVA, DM, Hypertension, Malignancy, Other - Kidney disease Patient has suicidal ideation: No Patient has homicidal ideation: No - Past Medical History Cardiac Medical History: Reports: Hx Atrial Fibrillation, Hx Congestive Heart Failure, Hx Coronary Artery Disease, Hx DVT, Hx Heart Attack - x3 per patient, Hx Hypertension, Hx Peripheral Vascular Disease Pulmonary Medical History: Reports: Hx Bronchitis, Hx COPD, Hx Pneumonia Neurological Medical History: Reports: None Endocrine Medical History: Reports: Hx Diabetes Mellitus Type 2 Renal/ Medical History: Reports: Hx Kidney Stones, Hx Renal Insufficiency Malignancy Medical History: Reports: None GI Medical History: Reports: Hx Gastroesophageal Reflux Disease, Hx Hiatal Hernia, Hx Irritable Bowel Musculoskeletal Medical History: Reports Hx Arthritis, Reports Hx Musculoskeletal Deformity, Reports Hx Musculoskeletal Trauma Skin Medical History: Reports Hx Cellulitis Psychiatric Medical History: Reports: Hx Anxiety, Hx Depression Traumatic Medical History: Reports: None Infectious Medical History: Reports: None Past Surgical History: Reports: Hx Abdominal Surgery, Hx Cardiac Catheteriz ation, Hx Cardiac Surgery - CABG, Hx Section - x2, Hx Cholecystectomy, Hx Coronary Artery Bypass Graft - x3, Hx Herniorrhaphy - Ventral hernia, Hx Orthopedic Surgery - Knee surgery, Hx Tubal Ligation, Hx Vascular Surgery - Left iliofemoral bypass, Other - Peripheral nerve stimulator implantation - Immunizations Immunizations up to date: Yes Hx Diphtheria, Pertussis, Tetanus Vaccination: Yes Hx Pneumococcal Vaccination: 07/23/09 Review of Systems - Review of Systems Constitutional: No symptoms reported EENT: No symptoms reported Cardiovascular: No symptoms reported Respiratory: No symptoms reported, Cough, Short of breath Gastrointestinal: Abdomen distended - Severe, Abdominal pain Genitourinary: No symptoms reported Female Genitourinary: No symptoms reported Musculoskeletal: No symptoms reported Skin: No symptoms reported Hematologic/Lymphatic: No symptoms reported Neurological/Psychological: No symptoms reported -: Yes All other systems reviewed and negative Physical Exam - Vital signs Vitals: Temp Pulse Resp BP Pulse Ox 98.2 F 99 18 128/89 H 98 10/24/19 16:37 10/24/19 16:37 10/24/19 16:37 10/24/19 16:37 10/24/19 16:37 Interpretation: Normal - General General appearance: Appears well, Alert - HEENT Head: Normocephalic, Atraumatic Eyes: Normal Pupils: PERRL - Respiratory Respiratory status: Other - Short of breath cannot be day Chest status: Nontender Breath sounds: Nonproductive cough Chest palpation: Normal - Cardiovascular Rhythm: Regular Heart sounds: Normal auscultation Murmur: No - Abdominal Inspection: Normal Distension: No distension Bowel sounds: Normal Tenderness: Nontender Organomegaly: No organomegaly - Back Back: Normal, Nontender - Extremities General upper extremity: Normal inspection, Nontender, Normal color, Normal ROM, Normal temperature General lower extremity: Normal inspection, Nontender, Normal color, Normal ROM, Normal temperature, Normal weight bearing. No: Antonio's sign - Neurological Neuro grossly intact: Yes Cognition: Normal Orientation: AAOx4 [place] Coma Scale Eye Opening: Spontaneous [place] Coma Scale Verbal: Oriented Val[place] Coma Scale Motor: Obeys Commands Valeri Coma Scale Total: 15 Speech: Normal Motor strength normal: LUE, RUE, LLE, RLE Sensory: Normal - Psychological Associated symptoms: Normal affect, Normal mood - Skin Skin Temperature: Warm Skin Moisture: Dry Skin Color: Normal Course - Vital Signs Vital signs: Temp Pulse Resp BP Pulse Ox 98.2 F 99 18 128/89 H 98 10/24/19 16:37 10/24/19 16:37 10/24/19 16:37 10/24/19 16:37 10/24/19 16:37 Discharge - Discharge Referrals: THERESE NEUMANN DO [Primary Care Provider] - Follow up as needed
[2019-10-24] MEDS ORDERED: FUROSEMIDE INJ/PF 40 MG/4 ML SDV IV ONE (17:26)
[2019-10-24 17:30] LABS: ABSOLUTE BASOPHILS # (AUTO) 0.1 10^3/uL (0.0-0.2); ABSOLUTE EOSINOPHILS # (AUTO) 0.1 10^3/uL (0.0-0.6); ABSOLUTE LYMPHOCYTES (AUTO) 0.7 10^3/uL (0.5-4.7); ABSOLUTE MONOCYTES (AUTO) 0.4 10^3/uL (0.1-1.4); ABSOLUTE NEUT (AUTO) 4.6 10^3/uL (1.7-8.2); EOSINOPHILS % (AUTO) 2.1 % (0-6); HEMATOCRIT 32.2 % (36.0-47.0); HEMOGLOBIN 9.9 g/dL (12.0-15.5); LYMPHOCYTES % (AUTO) 12.1 % (13-45); MEAN CORPUSCULAR HEMOGLOBIN 24.9 pg (27.0-33.4); MEAN CORPUSCULAR HGB CONC 30.8 g/dL (32.0-36.0); MEAN CORPUSCULAR VOLUME 81 fl (80-97); MONOCYTES % (AUTO) 6.7 % (3-13); PLATELET COUNT 289 10^3/uL (150-450); RED BLOOD COUNT 3.98 10^6/uL (3.72-5.28); RED CELL DISTRIBUTION WIDTH 20.4 % (11.5-14.0); SEGMENTED NEUTROPHILS % (AUTO) 78.1 % (42-78); TOTAL CELLS COUNTED % (AUTO) 100 %; WHITE BLOOD COUNT 5.9 10^3/uL (4.0-10.5)
--- NOTE | 2019-10-24 17:38 | ER Document Report ---
ED General - General Chief Complaint: Abdominal Distention Stated Complaint: ABDOMINAL PAIN Time Seen by Provider: 10/24/19 16:33 Mode of Arrival: Ambulatory TRAVEL OUTSIDE OF THE [place] IN LAST 30 DAYS: No - HPI Notes: Patient is a 49-year-old female with a history of diabetes, congestive heart failure, who presents to the emergency department for evaluation of increased shortness of breath, abdominal distention, and edema. Actually at the pleasure of seeing this patient on her last visit to the ED. She had been admitted to the hospital for several weeks. She had been diuresed as an inpatient, had a few dialysis treatments to decrease her fluid load. She went home and had gained approximately 16 pounds, and could presented to the emergency department for evaluation. At that time she was not having any significant distress, her labs did not show any significant abnormalities from baseline. She was diuresed here with IV Lasix, told to double her Lasix at home, and was to follow-up with cardiology. She states that she saw a nurse at her instructional interventionist's office on Sunday. They found her INR to be high, but no further changes were made in her medication regimen. She has not been weighing herself daily, but states she has gained a significant amount of fluid. - Related Data Allergies/Adverse Reactions: amlodipine Allergy (Severe, Verified 09/30/19 08:47) Hallucinations isosorbide [From Imdur] Allergy (Intermediate, Verified 09/30/19 08:47) RASH zolpidem [From Ambien] Adverse Reaction (Severe, Verified 09/30/19 08:47) Hallucinations Home Medications: List reviewed from prior discharge summary, only change was double Lasix dose Past Medical History - General Information source: Patient - Social History Smoking Status: Never Smoker Frequency of alcohol use: None Drug Abuse: None Lives with: Family Family History: CAD, CVA, DM, Hypertension, Malignancy, Other - Kidney disease Patient has suicidal ideation: No Patient has homicidal ideation: No - Past Medical History Cardiac Medical History: Reports: Hx Atrial Fibrillation, Hx Congestive Heart Failure, Hx Coronary Artery Disease, Hx DVT, Hx Heart Attack - x3 per patient, Hx Hypertension, Hx Peripheral Vascular Disease Pulmonary Medical History: Reports: Hx Bronchitis, Hx COPD, Hx Pneumonia Neurological Medical History: Reports: None. Denies: Hx Migraine, Hx Seizures Endocrine Medical History: Reports: Hx Diabetes Mellitus Type 2. Denies: Hx Diabetes Mellitus Type 1, Hx Hyperthyroidism, Hx Hypothyroidism Renal/ Medical History: Reports: Hx Hemodialysis - Short-term for fluid overload only, Hx Kidney Stones, Hx Renal Insufficiency. Denies: Hx Peritoneal Dialysis Malignancy Medical History: Reports: None GI Medical History: Reports: Hx Gastroesophageal Reflux Disease, Hx Hiatal Hernia, Hx Irritable Bowel. Denies: Hx Cirrhosis, Hx Crohn's Disease, Hx Hepatitis, Hx Ulcerative Colitis Musculoskeletal Medical History: Reports Hx Arthritis, Denies Hx Fibromyalgia, Denies Hx Gout, Reports Hx Musculoskeletal Deformity, Reports Hx Musculoskeletal Trauma Skin Medical History: Reports Hx Cellulitis, Denies Hx Eczema, Denies Hx Psoriasis Psychiatric Medical History: Reports: Hx Anxiety, Hx Depression Traumatic Medical History: Reports: None Infectious Medical History: Reports: None. Denies: Hx Hepatitis Past Surgical History: Reports: Hx Abdominal Surgery, Hx Cardiac Catheterization, Hx Cardiac Surgery - CABG, Hx Section - x2, Hx Cholecystectomy, Hx Coronary Artery Bypass Graft - x3, Hx Herniorrhaphy - Ventral hernia, Hx Orthopedic Surgery - Knee surgery, Hx Tubal Ligation, Hx Vascular Surgery - Left iliofemoral bypass, Other - Peripheral nerve stimulator implantation - Immunizations Immunizations up to date: Yes Hx Diphtheria, Pertussis, Tetanus Vaccination: Yes Hx Pneumococcal Vaccination: 07/23/09 Review of Systems - Review of Systems Constitutional: See HPI Cardiovascular: See HPI Musculoskeletal: See HPI -: Yes All other systems reviewed and negative Physical Exam - Vital signs Vitals: Temp Pulse Resp BP Pulse Ox 98.2 F 99 18 128/89 H 98 10/24/19 16:37 10/24/19 16:37 10/24/19 16:37 10/24/19 16:37 10/24/19 16:37 - Notes Notes: Is a 49-year-old female who appears older than her stated age, in no acute distress. She has significant anasarca, with marked abdominal distention, and transudate of fluid leaking from the skin of her abdominal wall. Vital signs reviewed, please refer to chart. Head is normocephalic, atraumatic. Pupils equal round, reactive to light. Neck is supple without meningismus. Heart is irregularly irregular. Lungs reveal basilar crackles bilaterally, but no increased work of breathing. Abdomen is markedly distended, nontender, normoactive bowel sounds throughout. She has weeping edema from the skin of the abdominal wall. She has a right BKA, with significant edema noted. She has 3+ pitting edema to the left lower extremity, with small open wounds, weeping as well. Sensation is intact. Course - Re-evaluation Re-evalutation: 10/24/19 18:09 Patient presents to the emergency department for evaluation of worsened edema. I did see this patient last week and she has significantly more fluid. I spoke with Dr. Ervin, she is stable at this time, but will likely require IV Lasix for diuresis. She was given IV Lasix here in the emergency department. He will admit the patient for further care. - Vital Signs Vital signs: Temp Pulse Resp BP Pulse Ox 98.2 F 99 18 128/89 H 98 10/24/19 16:37 10/24/19 16:37 10/24/19 16:37 10/24/19 16:37 10/24/19 16:37 - Laboratory Result Diagrams: 10/24/19 17:05 10/24/19 17:05 Laboratory results interpreted by me: 10/24/19 10/24/19 10/24/19 17:05 17:05 17:05 Hgb 9.9 L Hct 32.2 L MCH 24.9 L MCHC 30.8 L RDW 20.4 H Lymph % (Auto) 12.1 L Seg Neutrophils % 78.1 H PT INR ABG pO2 ABG O2 Saturation Sodium 132.5 L Chloride 96 L BUN 44 H Creatinine 2.49 H Est GFR ( Amer) 25 L Est GFR (MDRD) Non-Af 20 L Glucose 243 H POC Glucose Phosphorus 5.0 H Magnesium 1.4 L NT-Pro-B Natriuret Pep 71364 H Albumin 3.4 L 10/24/19 10/24/19 10/24/19 17:05 17:15 17:25 Hgb Hct MCH MCHC RDW Lymph % (Auto) Seg Neutrophils % PT 66.7 H* D INR 7.57 H* ABG pO2 66.0 L ABG O2 Saturation 92.9 L Sodium Chloride BUN Creatinine Est GFR ( Amer) Est GFR (MDRD) Non-Af Glucose POC Glucose 269 H Phosphorus Magnesium NT-Pro-B Natriuret Pep Albumin - Diagnostic Test Radiology reviewed: Image reviewed, Reports reviewed Radiology results interpreted by me: 10/24/19 18:08 10/24/19 17:05 10/24/19 17:05 MCV 81 fl (80-97) 10/24/19 17:05 MCH 24.9 pg (27.0-33.4) L 10/24/19 17:05 MCHC 30.8 g/dL (32.0-36.0) L 10/24/19 17:05 RDW 20.4 % (11.5-14.0) H 10/24/19 17:05 Seg Neutrophils % 78.1 % (42-78) H 10/24/19 17:05 Carbonic Acid 1.15 mmol/L (1.05-1.35) 10/24/19 17:25 HCO3/H2CO3 Ratio 19:1 10/24/19 17:25 ABG pH 7.39 (7.35-7.45) 10/24/19 17:25 ABG pCO2 38.1 mmHg (35-45) 10/24/19 17:25 ABG pO2 66.0 mmHg (80-100) L 10/24/19 17:25 ABG HCO3 22.3 mmol/L (20-24) 10/24/19 17:25 ABG O2 Saturation 92.9 % (94-98) L 10/24/19 17:25 ABG Base Excess -2.4 mmol/L 10/24/19 17:25 FiO2 ROOM AIR 10/24/19 17:25 Chloride 96 mmol/L (98-107) L 10/24/19 17:05 Carbon Dioxide 27 mmol/L (22-30) 10/24/19 17:05 Anion Gap 10 (5-19) 10/24/19 17:05 Est GFR ( Amer) 25 (>60) L 10/24/19 17:05 Glucose 243 mg/dL (75-110) H 10/24/19 17:05 Calcium 8.6 mg/dL (8.4-10.2) 10/24/19 17:05 Phosphorus 5.0 mg/dL (2.5-4.5) H 10/24/19 17:05 Magnesium 1.4 mg/dL (1.6-2.3) L 10/24/19 17:05 Total Bilirubin 0.5 mg/dL (0.2-1.3) 10/24/19 17:05 AST 18 U/L (14-36) 10/24/19 17:05 Alkaline Phosphatase 66 U/L (38-126) 10/24/19 17:05 Total Protein 6.6 g/dL (6.3-8.2) 10/24/19 17:05 Albumin 3.4 g/dL (3.5-5.0) L 10/24/19 17:05 Lipase 67.2 U/L (23-300) 10/24/19 17:05 10/24/19 10/24/19 17:05 17:05 Creatine Kinase 78 NT-Pro-B Natriuret Pep 72369 H 10/24/19 18:08 Chest X-Ray 10/24/19 17:28 IMPRESSION: 1. Low lung volumes. NO ACUTE RADIOGRAPHIC FINDING IN THE CHEST. 2. Cardiomegaly. No evidence for failure. - EKG Interpretation by Me Additional EKG results interpreted by me: 10/24/19 18:09 Sinus mechanism with a rate of 87 bpm, PVCs noted. Normal axis, IVCD. Nonspecific ST changes, but no acute changes concerning for ischemia or i nfarction. No significant change compared to prior study. Discharge - Discharge Clinical Impression: Supratherapeutic INR Congestive heart failure Qualifiers: Heart failure chronicity: acute on chronic Dyspnea Qualifiers: Dyspnea type: shortness of breath Qualified Code(s): R06.02 - Shortness of scarlett th Condition: Stable Disposition: ADMITTED INPATIENT Admitting Provider: Aziza (Hospitalist) Unit Admitted: Medical Floor
--- NOTE | 2019-10-24 17:38 | ER Document Report ---
ED Medical Screen (RME) - General Chief Complaint: Abdominal Distention Stated Complaint: ABDOMINAL PAIN Time Seen by Provider: 10/24/19 16:33 Mode of Arrival: Medic Information source: Patient Notes: 49-year-old female presented to ED for complaint of shortness of breath generalized body edema with weeping from legs arms and abdomen, severe abdominal distention, history of diabetes and kidney dialysis. States she has not had a dialysis 3 weeks. She states she was seen in the emergency room on Sunday and was told to follow-up with her doctor which they did a telephone referral and did not see her. She states her abdomen has been slowly getting larger and larger over the last couple weeks much worse in the last couple days. She does have grossly distended abdomen patient is very short of breath. 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 She is alert oriented speaking in full sentences but very short of breath. TRAVEL OUTSIDE OF THE [place] IN LAST 30 DAYS: No - Related Data Allergies/Adverse Reactions: amlodipine Allergy (Severe, Verified 09/30/19 08:47) Hallucinations isosorbide [From Imdur] Allergy (Intermediate, Verified 09/30/19 08:47) RASH zolpidem [From Ambien] Adverse Reaction (Severe, Verified 09/30/19 08:47) Hallucinations Past Medical History - General Information source: Patient - Social History Frequency of alcohol use: None Drug Abuse: None - Past Medical History Cardiac Medical History: Reports: Hx Atrial Fibrillation, Hx Congestive Heart Failure, Hx Coronary Artery Disease, Hx DVT, Hx Heart Attack - x3 per patient, Hx Hypertension, Hx Peripheral Vascular Disease Pulmonary Medical History: Reports: Hx Bronchitis, Hx COPD, Hx Pneumonia Neurological Medical History: Reports: None. Denies: Hx Migraine, Hx Seizures Endocrine Medical History: Reports: Hx Diabetes Mellitus Type 2. Denies: Hx Diabetes Mellitus Type 1, Hx Hyperthyroidism, Hx Hypothyroidism Renal/ Medical History: Reports: Hx Kidney Stones, Hx Renal Insufficiency. Denies: Hx Peritoneal Dialysis Malignancy Medical History: Reports: None GI Medical History: Reports: Hx Gastroesophageal Reflux Disease, Hx Hiatal Hernia, Hx Irritable Bowel. Denies: Hx Cirrhosis, Hx Crohn's Disease, Hx Hepatitis, Hx Ulcerative Colitis Musculoskeltal Medical History: Reports Hx Arthritis, Denies Hx Fibromyalgia, Denies Hx Gout, Reports Hx Musculoskeletal Deformity, Reports Hx Musculoskeletal Trauma Skin Medical History: Reports Hx Cellulitis, Denies Hx Eczema, Denies Hx Psoriasis Psychiatric Medical History: Reports: Hx Anxiety, Hx Depression Traumatic Medical History: Reports: None Infectious Medical History: Reports: None. Denies: Hx Hepatitis Past Surgical History: Reports: Hx Abdominal Surgery, Hx Cardiac Catheterization, Hx Cardiac Surgery - CABG, Hx Section - x2, Hx Cholecystectomy, Hx Coronary Artery Bypass Graft - x3, Hx Herniorrhaphy - Shady tral hernia, Hx Orthopedic Surgery - Knee surgery, Hx Tubal Ligation, Hx Vascular Surgery - Left iliofemoral bypass, Other - Peripheral nerve stimulator implantation - Immunizations Immunizations up to date: Yes Hx Diphtheria, Pertussis, Tetanus Vaccination: Yes Physical Exam - Vital signs Vitals: Temp Pulse Resp BP Pulse Ox 98.2 F 99 18 128/89 H 98 10/24/19 16:37 10/24/19 16:37 10/24/19 16:37 10/24/19 16:37 10/24/19 16:37 Course - Vital Signs Vital signs: Temp Pulse Resp BP Pulse Ox 97.4 F 93 19 116/77 100 10/24/19 19:46 10/24/19 19:46 10/24/19 19:46 10/24/19 19:46 10/24/19 19:46 - Laboratory Result Diagrams: 10/24/19 17:05 10/24/19 17:05 Laboratory results interpreted by me: 10/24/19 10/24/19 10/24/19 17:05 17:05 17:05 Hgb 9.9 L Hct 32.2 L MCH 24.9 L MCHC 30.8 L RDW 20.4 H Lymph % (Auto) 12.1 L Seg Neutrophils % 78.1 H PT INR ABG pO2 ABG O2 Saturation Sodium 132.5 L Chloride 96 L BUN 44 H Creatinine 2.49 H Est GFR ( Amer) 25 L Est GFR (MDRD) Non-Af 20 L Glucose 243 H POC Glucose Phosphorus 5.0 H Magnesium 1.4 L NT-Pro-B Natriuret Pep 80862 H Albumin 3.4 L 10/24/19 10/24/19 10/24/19 17:05 17:15 17:25 Hgb Hct MCH MCHC RDW Lymph % (Auto) Seg Neutrophils % PT 66.7 H* D INR 7.57 H* ABG pO2 66.0 L ABG O2 Saturation 92.9 L Sodium Chloride BUN Creatinine Est GFR ( Amer) Est GFR (MDRD) Non-Af Glucose POC Glucose 269 H Phosphorus Magnesium NT-Pro-B Natriuret Pep Albumin Doctor's Discharge - Discharge Clinical Impression: Congestive heart failure, Dyspnea, Supratherapeutic INR Condition: Stable Disposition: ADMITTED INPATIENT
[2019-10-24 17:51] LABS: ALBUMIN 3.4 g/dL (3.5-5.0); ALKALINE PHOSPHATASE 66 U/L (38-126); ASPARTATE AMINO TRANSFERASE 18 U/L (14-36); BILIRUBIN,DIRECT 0.2 mg/dL (0.0-0.4); BILIRUBIN,TOTAL 0.5 mg/dL (0.2-1.3); BLOOD UREA NITROGEN 44 mg/dL (7-20); CALCIUM 8.6 mg/dL (8.4-10.2); CARBON DIOXIDE 27 mmol/L (22-30); CHLORIDE 96 mmol/L (98-107); CREATINE KINASE 78 U/L (30-135); GLUCOSE 243 mg/dL (75-110); POTASSIUM 4.4 mmol/L (3.6-5.0); TOTAL PROTEIN 6.6 g/dL (6.3-8.2)
[2019-10-24 17:52] LABS: ANION GAP 10 (5-19)
[2019-10-24 18:03] LABS: ARTERIAL BLOOD BASE EXCESS -2.4 mmol/L; ARTERIAL BLOOD FIO2 ROOM AIR; ARTERIAL BLOOD H2CO3 1.15 mmol/L (1.05-1.35); ARTERIAL BLOOD HCO3 22.3 mmol/L (20-24); ARTERIAL BLOOD O2 SATURATION 92.9 % (94-98); ARTERIAL BLOOD PCO2 38.1 mmHg (35-45); ARTERIAL BLOOD PH 7.39 (7.35-7.45); ARTERIAL BLOOD TOTAL CO2 23.5 mmol/L (21-25)
--- NOTE | 2019-10-24 18:06 | RADIOLOGY REPORT (SQ) ---
EXAM DESCRIPTION: CHEST SINGLE VIEW IMAGES COMPLETED DATE/TIME: 10/24/2019 5:54 pm REASON FOR STUDY: short of breath COMPARISON: 10/17/2019 EXAM PARAMETERS: NUMBER OF VIEWS: One view. TECHNIQUE: Single frontal radiographic view of the chest acquired. RADIATION DOSE: NA LIMITATIONS: None. FINDINGS: LUNGS AND PLEURA: Low lung volumes limits the examination. No acute pulmonary consolidat ion. No pneumothorax or pleural effusion. MEDIASTINUM AND HILAR STRUCTURES: No masses. Contour normal. HEART AND VASCULAR STRUCTURES: Cardiomegaly, unchanged finding. Normal vasculature. BONES: No acute findings. HARDWARE: Prior anterior median sternotomy. OTHER: No other significant finding. IMPRESSION: 1. Low lung volumes. NO ACUTE RADIOGRAPHIC FINDING IN THE CHEST. 2. Cardiomegaly. No evidence for failure. TECHNICAL DOCUMENTATION: JOB ID: [id number] 2010 [employer]- All Rights Reserved Reading location - IP/workstation name: [email or web address]
[2019-10-24 18:45] LABS: INTERNATIONAL RATION (INR) 7.57; PROTHROMBIN TIME 66.7 SEC (11.4-15.4)
--- NOTE | 2019-10-24 20:00 | PDOC H&P ---
History of Present Illness Admission Date/PCP: 10/24/19 18:24 THERESE NEUMANN DO Patient complains of: Increasing shortness of breath, weight gain and weeping fluid History of Present Illness: HELDER SERNA is a 49 year old female with multiple admissions to the hospital in the past. The most recent one was 2 weeks ago. She states that since then she visited with her primary care provider. Her furosemide dose was increased from 40 mg daily to 40 mg twice daily. She was placed on iron and there was one other medication change that she cannot remember. She saw her carriage rider several days ago. Her INR was 10 and she has been holding her warfarin. She reports that her urine output has been decreasing and her abdominal girth has increased significantly. She has several spots of weeping fluid on the abdomen as well as multiple spots on the left foot. She has a right below-knee amputation. She has had multiple cardiac surgeries, myocardial infarction and needed dialysis during her last admission. Her serum creatinine was 1.05 on October 08, 1.42 on October 16 and 2.49 today. As the patient is making urine we will admit the patient with attempts to stabilize her through the weekend. She will get frequent small doses of diuretic. I would likely use Bumex through the weekend until nephrology is available. She does have orthopnea but breathes comfortably sitting up. She denies any chest pain or pressure, palpitations, lightheadedness or dizziness. I will place her on telemetry and she will be on the hospitalist service. Past Medical History Cardiac Medical History: Reports: Atrial Fibrillation, Congestive Heart Failure, Coronary Artery Disease, DVT, Myocardial Infarction - x3 per patient, Hypertension, Peripheral Vascular Disease Pulmonary Medical History: Reports: Bronchitis, Chronic Obstructive Pulmonary Disease (COPD), Pneumonia Neurological Medical History: Reports: None Denies: Migraine, Seizures Endocrine Medical History: Reports: Diabetes Mellitus Type 2 Denies: Diabetes Mellitus Type 1, Hyperthyroidism, Hypothyroidism Malignancy Medical History: Reports: None GI Medical History: Reports: Gastroesophageal Reflux Disease, Hiatal Hernia Denies: Cirrhosis, Crohn's Disease, Hepatitis, Ulcerative Colitis Musculoskeltal Medical History: Reports: Arthritis Denies: Fibromyalgia, Gout Skin Medical History: Denies: Eczema, Psoriasis Psychiatric Medical History: Reports: Depression Traumatic Medical History: Reports: None Hematology: Reports: Anemia Denies: Bleeding Tendencies Infectious Medical History: Reports: None Past Surgical History Past Surgical History: Reports: Amputation - Right BKA, Cardiac Catheterization, Section - x2, Cholecystectomy, Coronary Artery Bypass Graft - x3, Herniorrhaphy - Ventral hernia, Orthopedic Surgery - Knee surgery, Tubal Ligation, Vascular Surgery - Left iliofemoral bypass, Other - Peripheral nerve stimulator implantation Social History Information Source: Patient, [facility] Records Lives with: Family - but lives in the same house with her and her daughter Smoking Status: Never Smoker Electronic Cigarette use?: No Frequency of Alcohol Use: None Hx Recreational Drug Use: No Drugs: None Hx Prescription Drug Abuse: No - Advance Directive Resuscitation Status: Full Code Family History Family History: CAD, CVA, DM, Hypertension, Malignancy, Other - Kidney disease Parental Family History Reviewed: Yes Children Family History Reviewed: Yes Sibling(s) Family History Reviewed.: Yes Medication/Allergy Home Medications: Acetaminophen [Tylenol Extra Strength 500 mg Tablet] 1,000 mg PO DAILYP PRN 07/02/19 Acetaminophen/Diphenhydramine [Tylenol Pm Ex-Strength Caplet] 1 each PO HSP PRN 07/02/19 Aspirin [Adult Low Dose Aspirin EC] 81 mg PO DAILY 07/02/19 Buspirone HCl [Buspar 15 mg Tablet] 7.5 mg PO Q12 07/02/19 Carvedilol [Coreg 3.125 mg Tablet] 3.125 mg PO Q12 07/02/19 Citalopram Hydrobromide [Celexa 40 mg Tablet] 40 mg PO DAILY 07/02/19 Fenofibrate Nanocrystallized [Tricor 145 mg Tablet] 145 mg PO DAILY 07/02/19 Lisinopril [Prinivil 5 mg Tablet] 5 mg PO DAILY 07/02/19 Metformin HCl [Glucophage] 500 mg PO BID 07/02/19 Metoclopramide HCl [Reglan 10 mg Tablet] 10 mg PO ACHS 07/02/19 NPH, Human Insulin Isophane [Humulin N (NPH) Insulin 100 unit/mL] 6 unit INJ DAILY 07/02/19 Ondansetron HCl [Zofran 4 mg Tablet] 4 mg PO PRN PRN 07/02/19 Oxycodone HCl [Oxy-Ir 5 mg Tablet] 10 mg PO Q8HP PRN 07/02/19 Pantoprazole Sodium [Protonix [address] Tablet] 40 mg PO DAILY 07/02/19 Trazodone HCl [Desyrel 50 mg Tablet] 50 mg PO HSP PRN 07/02/19 Atorvastatin Calcium [Lipitor 80 mg Tablet] 80 mg PO QHS tablet 07/04/19 Ascorbic Acid [Vitamin C] 125 mg PO DAILY 09/30/19 Diphenhydramine HCl [Benadryl] 25 mg PO DAILYP PRN 09/30/19 Acetaminophen [Tylenol 325 mg Tablet] 650 mg PO Q4HP PRN tablet 10/09/19 Docusate Sodium [Colace 100 mg Capsule] 100 mg PO BID capsule 10/09/19 Ferrous Sulfate [Feosol 325 mg Tablet] 325 mg PO DAILY 30 Days #30 tablet 10/09/19 Furosemide [Lasix 40 mg Tablet] 40 mg PO QAM #30 tablet 10/09/19 Gabapentin [Neurontin 300 mg Capsule] 300 mg PO QHS capsule 10/09/19 Hum Insulin NPH/Reg Insulin Hm [Insulin 70-30 (NPH/Reg) 100 unit/mL] 5 unit SUBCUT BIDACBS 30 Days #1 unit 10/09/19 Mag Hydrox/Al Hydrox/Simeth [Maalox Plus Susp 30 Udcup] 30 ml PO Q6HP PRN udc 10/09/19 Magnesium Hydroxide [Milk of Magnesia 30 ml Udcup] 30 ml PO HSP PRN udc 10/09/19 Warfarin Sodium [Coumadin 5 mg Tablet] 5 mg PO QHS 30 Days #30 tablet 10/09/19 Allergies/Adverse Reactions: amlodipine Allergy (Severe, Verified 09/30/19 08:47) Hallucinations isosorbide [From Imdur] Allergy (Intermediate, Verified 09/30/19 08:47) RASH zolpidem [From Ambien] Adverse Reaction (Severe, Verified 09/30/19 08:47) Hallucinations Review of Systems All systems: reviewed and no additional remarkable complaints except as stated Constitutional: PRESENT: weight gain - The patient is unable to stand on a scale. Her admission weight coincidentally is the exact weight from her last admission September 29. Cardiovascular: PRESENT: edema, orthropnea Respiratory: PRESENT: cough, dyspnea, sputum - White Gastrointestinal: PRESENT: abdominal pain, other - Marked abdominal distention Integumentary: PRESENT: wounds - Lesions on her left foot. Weeping fluid. Lesion near her umbilicus. Weeping fluid. Physical Exam Vital Signs: Temp Pulse Resp BP Pulse Ox 98.2 F 99 18 128/89 H 98 10/24/19 16:37 10/24/19 16:37 10/24/19 16:37 10/24/19 16:37 10/24/19 16:37 Intake & Output 10/23/19 10/24/19 10/25/19 06:59 06:59 06:59 Weight 4.536 kg General appearance: PRESENT: cooperative, mild distress, obese, well-developed Head exam: PRESENT: atraumatic, normocephalic Eye exam: PRESENT: conjunctiva pale, EOMI. ABSENT: conjunctival injection, scleral icterus Ear exam: PRESENT: normal external ear exam. ABSENT: bleeding, drainage Mouth exam: PRESENT: other - Surgical mask in place Respiratory exam: PRESENT: decreased breath sounds, rales, symmetrical, unlabored. ABSENT: accessory muscle use, rhonchi, tachypnea, wheezes Cardiovascular exam: PRESENT: RRR, +S1, +S2 GI/Abdominal exam: PRESENT: diminished bowel sounds, distended, firm, other - Markedly protuberant abdomen with striae. ABSENT: guarding Rectal exam: PRESENT: deferred Gentrourinary exam: ABSENT: indwelling catheter Extremities exam: PRESENT: pedal edema - Left foot, other - Right below-knee amputation Musculoskeletal exam: PRESENT: deformity. ABSENT: ambulatory, normal inspection Neurological exam: PRESENT: alert, awake, oriented to person, oriented to place, oriented to time, oriented to situation, CN II-XII grossly intact. ABSENT: altered Psychiatric exam: PRESENT: appropriate affect. ABSENT: agitated, anxious Focused psych exam: ABSENT: delusional, paranoid, restlessness Skin exam: PRESENT: dry, pallor, warm, other - Several ulcerated areas on the dorsum of the left foot. Fibrous slough present in 1 of the ulcers. They are all with denton-ulcer erythema Results Laboratory Results: 10/24/19 17:05 10/24/19 17:05 10/24/19 10/24/19 10/24/19 17:05 17: 17:25 WBC 5.9 RBC 3.98 Hgb 9.9 L Hct 32.2 L MCV 81 MCH 24.9 L MCHC 30.8 L RDW 20.4 H Plt Count 289 Seg Neutrophils % 78.1 H Carbonic Acid 1.15 HCO3/H2CO3 Ratio 19:1 ABG pH 7.39 ABG pCO2 38.1 ABG pO2 66.0 L ABG HCO3 22.3 ABG O2 Saturation 92.9 L ABG Base Excess -2.4 FiO2 ROOM AIR Sodium 132.5 L Potassium 4.4 Chloride 96 L Carbon Dioxide 27 Anion Gap 10 BUN 44 H Creatinine 2.49 H Est GFR ( Amer) 25 L Glucose 243 H Calcium 8.6 Phosphorus 5.0 H Magnesium 1.4 L Total Bilirubin 0.5 AST 18 Alkaline Phosphatase 66 Total Protein 6.6 Albumin 3.4 L Lipase 67.2 10/24/19 10/24/19 17:05 17:05 Creatine Kinase 78 NT-Pro-B Natriuret Pep 23877 H Impressions: Chest X-Ray 10/24/19 17:28 IMPRESSION: 1. Low lung volumes. NO ACUTE RADIOGRAPHIC FINDING IN THE CHEST. 2. Cardiomegaly. No evidence for failure. Assessment and Plan - Diagnosis (1) Acute kidney injury superimposed on chronic kidney disease Is this a current diagnosis for this admission?: Yes Plan: October 24, 2019 We will attempt to diurese the patient. She still makes urine and so we will take maximum advantage of this. I will utilize intravenous Bumex to start. We will need to monitor her serum potassium levels as well as her BUN and creatinine. This will be accomplished with serial blood tests. Nephrology will be available on Sunday. 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 The patient has cardiomegaly with left ventricular hypertrophy. There is mild to moderate tricuspid regurgitation with mild pulmonary hypertension. Increase diuresis as above. Continue other medications and consult cardiology. Will monitor intake and output closely. (3) CAD (coronary artery disease), [place] coronary artery Qualifiers: [place] vs. transplanted heart: [place] heart Associated angina: without angina Qualified Code(s): I25.10 - Atherosclerotic heart disease of [place] coronary artery without angina pectoris Is this a current diagnosis for this admission?: Yes Plan: October 24, 2019 Long complex history of cardiovascular disease. Currently pain-free. Continue current regimen at this time. (4) Anasarca associated with disorder of kidney Is this a current diagnosis for this admission?: Yes Plan: October 24, 2019 Monitor serum albumin. Aggressive diuresis as noted above. Low-sodium diet. (5) Hyperglycemia due to type 2 diabetes mellitus Qualifiers: Diabetes mellitus shelter insulin use: with talent development director use Qualified Code(s): E11.65 - Type 2 diabetes mellitus with hyperglycemia; Z79.4 - women designer (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 of insulin Is this a current diagnosis for this admission?: Yes Plan: October 24, 2019 We will hold metformin in light of the acute kidney injury. We will utilize lo ng and short acting insulin with sliding scale coverage. Diabetic cardiac diet (6) Longstanding persistent atrial fibrillation Is this a current diagnosis for this admission?: Yes Plan: 10/24/2019 Good rate control on current regimen. INR is supratherapeutic. See below. (7) Supratherapeutic INR Is this a current diagnosis for this admission?: Yes Plan: 10/24/2019 INR is 7. No warfarin at this time. Since she is not actively bleeding I will not administer vitamin K but rather let her INR drift down. (8) Chronic ulcer of left foot limited to breakdown of skin Is this a current diagnosis for this admission?: Yes Plan: 10/24/2019 Because of her peripheral vascular disease we will avoid compression. She should elevate her left leg. I will administer Santyl ointment and cover the lesions. (9) Peripheral vascular disease in diabetes mellitus Is this a current diagnosis for this admission?: Yes Plan: 10/24/2019 Status post below-knee amputation of the right leg. Continue aspirin and statin therapy. (10) Depression Qualifiers: Depression Type: unspecified Qualified Code(s): F32.9 - Major depressive disorder, single episode, unspecified Is this a current diagnosis for this admission?: Yes Plan: 10/24/2019 Continue current regimen - Time Time Spent with patient: 35 or more minutes Medications reviewed and adjusted accordingly: Yes Anticipated discharge: Home - Inpatient Certification Based on my medical assessment, after consideration of the patient's comorbidities, presenting symptoms, or acuity I expect that the services needed warrant INPATIENT care.: Yes I certify that my determination is in accordance with my understanding of Medicare's requirements for reasonable and necessary INPATIENT services [42 CFR 412.3e].: Yes Medical Necessity: Need Close Monitoring Due to Risk of Patient Decompensation, Need For Continuous Telemetry Monitoring, Risk of Complication if Not Cared For in Hospital Post Hospital Care: D/C Volcanologist Documentation
[2019-10-24] MEDS ORDERED: DEXTROSE 50%-WATER 25 GM/50 ML DISP.SYRIN IV PRN ×2 (20:21)
[2019-10-24] MEDS ORDERED: DEXTROSE 40% GEL 15 GM TUBE PO PRN ×2 (20:21)
[2019-10-24] MEDS ORDERED: GLUCAGON,HUMAN RECOMB 1 MG INJ IM PRN (20:21)
[2019-10-24] MEDS ORDERED: MAGNESIUM SULFATE/D5W 1 GM/100 ML RTUPB IV ONE (21:30)
[2019-10-24] MEDS ORDERED: BUSPIRONE HCL 10 MG TABLET PO SCH (22:00)
[2019-10-24] MEDS: CARVEDILOL 3.125 MG TABLET PO SCH (22:23)
[2019-10-24] MEDS: METOCLOPRAMIDE HCL 10 MG TABLET PO SCH (22:23)
[2019-10-24] MEDS: BUMETANIDE INJ/PF 1 MG/4 ML SDV IV SCH (22:23)
[2019-10-24] MEDS: ATORVASTATIN CALCIUM 80 MG TABLET PO SCH (22:23)
[2019-10-24] MEDS: TRAZODONE HCL 50 MG TABLET PO SCH (22:23)
[2019-10-24] MEDS: INSULIN REG, HUMAN 100 UNIT/ML 3 ML VIAL (PYX) SUBCUT SCH (22:35)
[2019-10-25] MEDS: OXYCODONE HCL IR 5 MG TABLET PO PRN ×3 (00:02→17:11)
[2019-10-25 06:12] LABS: ALBUMIN 3.5 g/dL (3.5-5.0); ANION GAP 11 (5-19); BLOOD UREA NITROGEN 47 mg/dL (7-20); CALCIUM 8.8 mg/dL (8.4-10.2); CARBON DIOXIDE 25 mmol/L (22-30); CHLORIDE 98 mmol/L (98-107); GLUCOSE 212 mg/dL (75-110); POTASSIUM 4.5 mmol/L (3.6-5.0)
[2019-10-25 06:13] LABS: PROTHROMBIN TIME 58.1 SEC (11.4-15.4)
[2019-10-25] MEDS: PANTOPRAZOLE SODIUM 40 MG TABLET.DR PO SCH (06:52)
--- NOTE | 2019-10-25 07:50 | PDOC CONSULTATION ---
Consultation Consult Date: 10/25/19 Attending physician:: MARIAH SCHULTE Provider Consulted: CATRINA KIM Consult reason:: Heart failure History of Present Illness Admission Date/PCP: 10/24/19 18:24 THERESE NEUMANN DO Patient complains of: Edema of the leg. History of Present Illness: HELDER SERNA is a 49 year old female with history of atrial fibrillation status post ablation in 2009, CHF, CAD status post three-vessel CABG in 2009, DVT, [place], hypertension, PVD status post right below the knee amputation, COPD, DM 2, obesity, CKD, GERD, depression, and tobacco dependence, chronically anticoagulated on Coumadin who is consulted to our service for evaluation of heart failure. She has had multiple admissions to this facility for heart failure exacerbation and was actually last admitted in September 2019 at which point she was found to be in anasarca and required both IV Albumin as well as dialysis to address her fluid overload. Since discharge from the hospital back in September she continued to gain weight but unfortunately she did not respond to outpatient diuresis and developed significant edema in the abdominal area as well as the lower extremities. Since admission she had put out 730 cc of urine and feels slightly better this morning. Physical exam on 10/25/2019: GENERAL: Pleasant and conversational. Oriented x3 with normal mood. Not in acute distress. Well groomed and well developed. HEENT: Normocephalic, atraumatic. Pupils equal. Sclerae anicteric. Oropharynx moist. NECK: Difficult to evaluate for JVD given her body habitus. No carotid bruits. LUNGS: Clear to auscultation bilaterally. Normal respiratory effort without the use of accessory muscles or intercostal retractions. CARDIOVASCULAR: Regular rate and rhythm, normal S1 and S2 without murmurs, rubs, or gallops. PMI not displaced. ABDOMEN: Protuberant and tense to palpation. Unable to assess for organomegaly. EXTREMITIES: 1+ edema on the left, 1+ edema on the right stump. SKIN: No lesions or rashes. MUSCULOSKELETAL: No chest tenderness to palpation. NEUROLOGIC: Nonfocal. No gross sensory or motor deficits bilateral upper or lower extremities. Past Medical History Cardiac Medical History: Reports: Atrial Fibrillation, Congestive Heart Failure, Coronary Artery Disease, DVT, Myocardial Infarction - x3 per patient, Hypertension, Peripheral Vascular Disease Pulmonary Medical History: Reports: Bronchitis, Chronic Obstructive Pulmonary Disease (COPD), Pneumonia Neurological Medical History: Reports: None Denies: Migraine, Seizures Endocrine Medical History: Reports: Diabetes Mellitus Type 2 Denies: Diabetes Mellitus Type 1, Hyperthyroidism, Hypothyroidism Malignancy Medical History: Reports: None GI Medical History: Reports: Gastroesophageal Reflux Disease, Hiatal Hernia Denies: Cirrhosis, Crohn's Disease, Hepatitis, Ulcerative Colitis Musculoskeltal Medical History: Reports: Arthritis Denies: Fibromyalgia, Gout Skin Medical History: Denies: Eczema, Psoriasis Psychiatric Medical History: Reports: Depression Traumatic Medical History: Reports: None Hematology: Reports: Anemia Denies: Bleeding Tendencies Infectious Medical History: Reports: None Past Surgical History Past Surgical History: Reports: Amputation - Right BKA, Cardiac Catheterization, Section - x2, Cholecystectomy, Coronary Artery Bypass Graft - x3, Herniorrhaphy - Ventral hernia, Orthopedic Surgery - Knee surgery, Tubal Ligation, Vascular Surgery - Left iliofemoral bypass, Other - Peripheral nerve stimulator implantation Social History Lives with: Family - but lives in the same house with her and her daughter Smoking Status: Never Smoker Electronic Cigarette use?: No Last Time Smoked: Quit Apr 10, 2010, per patient Frequency of Alcohol Use: None Hx Recreational Drug Use: No Drugs: None Hx Prescription Drug Abuse: No - Advance Directive Resuscitation Status: Full Code Family History Family History: CAD, CVA, DM, Hypertension, Malignancy, Other - Kidney disease Parental Family History Reviewed: Yes Children Family History Reviewed: Yes Sibling(s) Family History Reviewed.: Yes Medication/Allergy Home Medications: Acetaminophen [Tylenol Extra Strength 500 mg Tablet] 1,000 mg PO Q8HP PRN 07/02/19 Aspirin [Adult Low Dose Aspirin EC] 81 mg PO DAILY 07/02/19 Buspirone HCl [Buspar 15 mg Tablet] 7.5 mg PO Q12 07/02/19 Carvedilol [Coreg 3.125 mg Tablet] 3.125 mg PO Q12 07/02/19 Citalopram Hydrobromide [Celexa 40 mg Tablet] 40 mg PO DAILY 07/02/19 Fenofibrate Nanocrystallized [Tricor 145 mg Tablet] 145 mg PO DAILY 07/02/19 Lisinopril [Prinivil 5 mg Tablet] 5 mg PO DAILY 07/02/19 Metformin HCl [Glucophage] 1,000 mg PO QPM 07/02/19 Metoclopramide HCl [Reglan 10 mg Tablet] 10 mg PO ACHS 07/02/19 Oxycodone HCl [Oxy-Ir 5 mg Tablet] 10 mg PO Q8HP PRN 07/02/19 Pantoprazole Sodium [Protonix [address] Tablet] 40 mg PO DAILY 07/02/19 Trazodone HCl [Desyrel 50 mg Tablet] 50 mg PO HSP PRN 07/02/19 Atorvastatin Calcium [Lipitor 80 mg Tablet] 80 mg PO QHS tablet 07/04/19 Diphenhydramine HCl [Benadryl] 50 mg PO DAILYP PRN 09/30/19 Ferrous Sulfate [Feosol 325 mg Tablet] 325 mg PO DAILY 30 Days #30 tablet 10/09/19 Hum Insulin NPH/Reg Insulin Hm [Insulin 70-30 (NPH/Reg) 100 unit/mL] 5 unit SUBCUT BIDACBS 30 Days #1 unit 10/09/19 Furosemide [Lasix 40 mg Tablet] 40 mg PO BID 10/24/19 Gabapentin [Neurontin 300 mg Capsule] 600 mg PO QID 10/24/19 Metformin HCl 500 mg PO QAM 10/24/19 Nitroglycerin [Nitrostat 0.4 mg (1/150 Gr) Tabs 25/Bottle] 1 tab SL Q5MP PRN 10/24/19 Polyethylene Glycol 3350 [Miralax Powder 17 gm/Packet] 1 packet PO DAILYP PRN 10/24/19 Warfarin Sodium [Coumadin 5 mg Tablet] 2.5 mg PO QHS 10/24/19 Allergies/Adverse Reactions: amlodipine Allergy (Severe, Verified 09/30/19 08:47) Hallucinations isosorbide [From Imdur] Allergy (Intermediate, Verified 09/30/19 08:47) RASH zolpidem [From Ambien] Adverse Reaction (Severe, Verified 09/30/19 08:47) Hallucinations Physical Exam Vital Signs: Temp Pulse Resp BP Pulse Ox 99.1 F 95 18 117/76 93 10/24/19 23:39 10/25/19 02:00 10/24/19 23:39 10/24/19 23:39 10/24/19 23:39 Intake & Output 10/23/19 10/24/19 10/25/19 06:59 06:59 06:59 Intake Total 420 Output Total 900 Balance -480 Weight 97.1 kg Results Laboratory Results: 10/24/19 17:05 10/25/19 05:20 10/24/19 10/24/19 10/24/19 17:05 17:05 17:25 WBC 5.9 RBC 3.98 Hgb 9.9 L Hct 32.2 L MCV 81 MCH 24.9 L MCHC 30.8 L RDW 20.4 H Plt Count 289 Seg Neutrophils % 78.1 H Carbonic Acid 1.15 HCO3/H2CO3 Ratio 19:1 ABG pH 7.39 ABG pCO2 38.1 ABG pO2 66.0 L ABG HCO3 22.3 ABG O2 Saturation 92.9 L ABG Base Excess -2.4 FiO2 ROOM AIR Sodium 132.5 L Potassium 4.4 Chloride 96 L Carbon Dioxide 27 Anion Gap 10 BUN 44 H Creatinine 2.49 H Est GFR ( Amer) 25 L Glucose 243 H Calcium 8.6 Phosphorus 5.0 H Magnesium 1.4 L Total Bilirubin 0.5 AST 18 Alkaline Phosphatase 66 Total Protein 6.6 Albumin 3.4 L Lipase 67.2 10/25/19 05:20 WBC RBC Hgb Hct MCV MCH MCHC RDW Plt Count Seg Neutrophils % Carbonic Acid HCO3/H2CO3 Ratio ABG pH ABG pCO2 ABG pO2 ABG HCO3 ABG O2 Saturation ABG Base Excess FiO2 Sodium 134.1 L Potassium 4.5 Chloride 98 Carbon Dioxide 25 Anion Gap 11 BUN 47 H Creatinine 2.06 H Est GFR ( Amer) 31 L Glucose 212 H Calcium 8.8 Phosphorus 5.0 H Magnesium 1.7 Total Bilirubin AST Alkaline Phosphatase Total Protein Albumin 3.5 Lipase 10/24/19 10/24/19 17:05 17:05 Creatine Kinase 78 NT-Pro-B Natriuret Pep 26506 H Impressions: Chest X-Ray 10/24/19 17:28 IMPRESSION: 1. Low lung volumes. NO ACUTE RADIOGRAPHIC FINDING IN THE CHEST. 2. Cardiomegaly. No evidence for failure. 10/24/19 17:05 10/25/19 05:20 MCV 81 fl (80-97) 10/24/19 17:05 MCH 24.9 pg (27.0-33.4) L 10/24/19 17:05 MCHC 30.8 g/dL (32.0-36.0) L 04/03/20 17:05 RDW 20.4 % (11.5-14.0) H 10/24/19 17:05 Seg Neutrophils % 78.1 % (42-78) H 10/24/19 17:05 Carbonic Acid 1.15 mmol/L (1.05-1.35) 10/24/19 17:25 HCO3/H2CO3 Ratio 19:1 10/24/19 17:25 ABG pH 7.39 (7.35-7.45) 10/24/19 17:25 ABG pCO2 38.1 mmHg (35-45) 10/24/19 17:25 ABG pO2 66.0 mmHg (80-100) L 10/24/19 17:25 ABG HCO3 22.3 mmol/L (20-24) 10/24/19 17:25 ABG O2 Saturation 92.9 % (94-98) L 10/24/19 17:25 ABG Base Excess -2.4 mmol/L 10/24/19 17:25 FiO2 ROOM AIR 10/24/19 17:25 Chloride 98 mmol/L (98-107) 10/25/19 05:20 Carbon Dioxide 25 mmol/L (22-30) 10/25/19 05:20 Anion Gap 11 (5-19) 10/25/19 05:20 Est GFR ( Amer) 31 (>60) L 10/25/19 05:20 Glucose 212 mg/dL (75-110) H 10/25/19 05:20 Calcium 8.8 mg/dL (8.4-10.2) 10/25/19 05:20 Phosphorus 5.0 mg/dL (2.5-4.5) H 10/25/19 05:20 Magnesium 1.7 mg/dL (1.6-2.3) 10/25/19 05:20 Total Bilirubin 0.5 mg/dL (0.2-1.3) 10/24/19 17:05 AST 18 U/L (14-36) 10/24/19 17:05 Alkaline Phosphatase 66 U/L (38-126) 10/24/19 17:05 Total Protein 6.6 g/dL (6.3-8.2) 10/24/19 17:05 Albumin 3.5 g/dL (3.5-5.0) 10/25/19 05:20 Lipase 67.2 U/L (23-300) 10/24/19 17:05 10/24/19 10/24/19 17:05 17:05 Creatine Kinase 78 NT-Pro-B Natriuret Pep 63351 H Current Medication List Generic Name Dose Route Start Last Admin Trade Name Freq PRN Reason Stop Dose Admin Acetaminophen 650 mg 10/24/19 20:04 Tylenol 325 Mg Tablet PO 11/23/19 20:03 Q4HP PRN FOR PAIN OR TEMP Acetaminophen 975 mg 10/25/19 08:00 Tylenol 325 Mg Tablet PO 11/24/19 07:59 QAM GLADIS Aspirin 81 mg 10/25/19 10:00 Ecotrin 81 Mg Ec Tablet PO 11/24/19 09:59 DAILY [facility] Atorvastatin Calcium 80 mg 10/24/19 22:00 10/24/19 22:23 Lipitor 80 Mg Tablet PO 11/23/19 21:59 80 mg QHS GLADIS Administration Bumetanide 1 mg 10/24/19 22:00 10/24/19 22:23 Bumex Inj/Pf 1 Mg/4 Ml Sdv IV 11/23/19 21:59 1 mg Q12 GLADIS Administration Buspirone HCl 7.5 mg 10/24/19 22:00 Buspar 10 Mg Tablet PO 11/23/19 21:59 Q12 GLADIS Carvedilol 3.125 mg 10/24/19 22:00 10/24/19 22:23 Coreg 3.125 Mg Tablet PO 11/23/19 21:59 3.125 mg Q12 GLADIS Administration Citalopram Hydrobromide 40 mg 10/25/19 10:00 Celexa 20 Mg Tablet PO 11/24/19 09:59 DAILY GLADIS Collagenase 1 applic 10/25/19 10:00 Santyl Ointment 30 Gm TP 11/24/19 09:59 DAILY GLADIS Dextrose 12.5 gm 10/24/19 20:21 Dextrose Inj 50% Syringe (25 Gm/50 Ml) IV 11/23/19 20:20 PRN PRN FOR BG 50-69 IN ALERT PATIENT Protocol Dextrose 25 gm 10/24/19 20:21 Dextrose Inj 50% Syringe (25 Gm/50 Ml) IV 11/23/19 20:20 PRN PRN PER PROTOCOL Protocol Docusate Sodium 100 mg 04/04/20 10:00 Colace 100 Mg Capsule PO 11/24/19 09:59 BID [facility] Fenofibrate 145 mg 10/25/19 10:00 Tricor 145 Mg Tablet PO 11/24/19 09:59 DAILY [facility] Ferrous Sulfate 325 mg 10/25/19 10:00 Feosol 325 Mg Tablet PO 11/24/19 09:59 DAILY [facility] Glucagon 1 mg 10/24/19 20:21 Glucagen Inj 1 Mg Vial IM 11/23/19 20:20 PRN PRN Evaluate for BG < 70 Protocol Glucose 15 gm 10/24/19 20:21 Glutose 40% Gel 15 Gm Tube PO 11/23/19 20:20 PRN PRN FOR BG 50-69 IN ALERT PATIENT Protocol Glucose 30 gm 10/24/19 20:21 Glutose 40% Gel 15 Gm Tube PO 11/23/19 20:20 PRN PRN FOR BG < 50 IN ALERT PATIENT Protocol Insulin Human NPH 50 unit 10/25/19 16:00 Humulin N (Nph) Insulin 100 Unit/1 Ml 3 Ml SUBCUT 11/24/19 15:59 ACSUPPER GLADIS Insulin Human Regular 0 - 12 unit 10/24/19 22:00 10/24/19 22:35 Humulin R (Pyxis) Insulin 100 Unit/Ml 3ml SUBCUT 11/23/19 21:59 4 unit ACHS GLADIS Administration Protocol Metoclopramide HCl 10 mg 10/24/19 22:00 10/24/19 22:23 Reglan 10 Mg Tablet PO 11/23/19 21:59 10 mg ACHS GLADIS Administration Oxycodone HCl 10 mg 10/24/19 23:50 10/25/19 00:02 Oxy-Ir 5 Mg Tablet PO 10/31/19 23:49 10 mg Q8HP PRN Administration PAIN Pantoprazole Sodium 40 mg 10/25/19 06:[address] Tablet PO 11/24/19 05:59 Q6AM GLADIS Sodium Chloride 2.5 ml 10/24/19 22:00 10/24/19 22:24 Saline Flush 2.5 Ml Monoject Prefil Syrin IV 11/23/19 21:59 2.5 ml Q8 GLADIS Administration Trazodone HCl 50 mg 10/24/19 22:00 10/24/19 22:23 Desyrel 50 Mg Tablet PO 05/03/20 21:59 50 mg QHS GLADIS Administration Discontinued Medications Generic Name Dose Route Start Last Admin Trade Name Franco PRN Reason Stop Dose Admin Furosemide 40 mg 10/24/19 17:26 10/24/19 18:07 Lasix Inj/Pf 40 Mg/4 Ml Sdv IV 10/24/19 17:27 40 mg NOW ONE Administration Magnesium Sulfate/Dextrose 1 gm in 100 mls @ 100 mls/hr 10/24/19 21:30 10/24/19 23:22 Magnesium Sulfate [id number]-[id number] 1 Gm/100 Ml Premix IV 10/24/19 22:29 Infused NOW ONE Infusion Assessment & Plan - Diagnosis (1) 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 Her poor oncotic pressure makes ex travasation of intravascular fluid making her edematous particularly in the abdominal area which has resulted in skin blisters and weeping. Luckily enough, so far, she has responded to IV Bumex with a negative fluid balance of 730 cc as of this morning. Of note, she required both IV Albumin and short-term dialysis in the prior admission to control her fluid overload therefore I recommend early involvement of the nephrology team in her case. For now we will continue with the current management with close attention to her renal function. I will contact her outpatient connie cleaner, Dr. Murphy, today to make him aware of her admission. Recommendations: -Continue with current medical management for now. -Low sodium diet. -Strict intake and output. -Daily weights. -Replace electrolytes as needed. -We will continue to follow-up with you. (2) Acute kidney injury superimposed on chronic kidney disease Is this a current diagnosis for this admission?: Yes Plan: Her renal function on admission was 2.49 which has marginally improved to 2.06 as of this morning which is still above her baseline. She required hemodialysis in her prior admission therefore I recommend early involvement of the nephrology team in her care. Recommendations: -I will defer further management to his primary team. -Recommend nephrology consult HERNANDO. (3) Longstanding persistent atrial fibrillation Is this a current diagnosis for this admission?: Yes Plan: She is status post atrial fibrillation ablation in 2009. Her telemetry shows normal sinus rhythm with ventricular bigeminy and occasional ventricular couplets. She denies palpitations. Her INR is supratherapeutic at over 6. Recommendations: -Continue to hold Coumadin for now. -Continue checking PT/INR and restart Coumadin when INR not supratherapeutic. -I will defer further management to primary team. (4) CAD (coronary artery disease), [place] coronary artery Qualifiers: [place] vs. transplanted heart: [place] heart Associated angina: without angina Qualified Code(s): I25.10 - Atherosclerotic heart disease of [place] coronary artery without angina pectoris Is this a current diagnosis for this admission?: Yes Plan: She is status post three-vessel CABG in March 2010 and remains chest pain- free during this hospitalization so far. Recommendations: -Continue with current medical management. -I will continue follow-up with you.
[2019-10-25] MEDS: INSULIN REG, HUMAN 100 UNIT/ML 3 ML VIAL (PYX) SUBCUT SCH ×4 (08:39→21:28)
[2019-10-25] MEDS: ACETAMINOPHEN 325 MG TABLET PO SCH (08:40)
[2019-10-25] MEDS: METOCLOPRAMIDE HCL 10 MG TABLET PO SCH ×4 (08:40→21:13)
[2019-10-25] MEDS: ASPIRIN 81 MG TABLET, ENT COATED PO SCH (10:28)
[2019-10-25] MEDS: DOCUSATE SODIUM 100 MG CAPSULE PO SCH ×2 (10:28→17:07)
[2019-10-25] MEDS: FERROUS SULFATE 325 MG TABLET PO SCH (10:29)
[2019-10-25] MEDS: CARVEDILOL 3.125 MG TABLET PO SCH ×2 (10:29→21:13)
[2019-10-25] MEDS: CITALOPRAM HYDROBROMIDE 20 MG TABLET PO SCH (10:29)
[2019-10-25] MEDS: COLLAGENASE CLOSTRIDIUM HIST. OINT 30 GM TP SCH (10:29)
[2019-10-25] MEDS: BUMETANIDE INJ/PF 1 MG/4 ML SDV IV SCH ×2 (10:30→21:13)
[2019-10-25] MEDS: FENOFIBRATE NANOCRYSTALLIZED 145 MG TABLET PO SCH (10:30)
[2019-10-25 11:35] LABS: APPEARANCE,URINE SLIGHTLY-CLOUDY; BILIRUBIN,URINE NEGATIVE (NEGATIVE); COLOR,URINE YELLOW; GLUCOSE, URINE NEGATIVE (NEGATIVE); KETONES,URINE NEGATIVE (NEGATIVE); PROTEIN,URINE 100 mg/dL (NEGATIVE); URINE SPECIFIC GRAVITY 1.014; UROBILINOGEN,URINE NEGATIVE mg/dL (<2.0)
[2019-10-25] MEDS ORDERED: INSULIN NPH (ISOPHANE), HUMAN 100 UNIT/ML 3 ML SUBCUT SCH (16:00)
[2019-10-25] MEDS ORDERED: INSULIN NPH (ISOPHANE), HUMAN 100 UNIT/ML 3 ML ONE (17:37)
--- NOTE | 2019-10-25 18:43 | PDOC PROGRESS REPORT ---
Subjective Progress Note for:: 10/25/19 Subjective:: Patient seems to be doing a bit better today. She states that she is diuresing well and has good urine output. She voices concerns about going back on dialysis that she had received this temporarily in the past. We discussed that she will let us know if her urine starts to taper off at that time we will consult nephrology. Currently that is not needed as she has good urine output and she is improving. She still has significant edema in her legs and abdomen w hich she complains of. She does have some tender blisters on her legs from the edema, but she does not have any shortness of breath. She denies any other complaints. Reason For Visit: ACUTE ON CHRONIC KIDNEY INJURY,ANASARCA,CORONARY Physical Exam Vital Signs: Temp Pulse Resp BP Pulse Ox 98.2 F 82 21 H 130/78 H 97 10/25/19 16:00 10/25/19 16:00 10/25/19 16:00 10/25/19 16:00 10/25/19 16:00 Intake & Output 10/24/19 10/25/19 10/26/19 06:59 06:59 06:59 Intake Total 420 480 Output Total 1150 Balance -730 480 Weight 97.1 kg General appearance: PRESENT: no acute distress, well-developed, well-nourished Head exam: PRESENT: atraumatic, normocephalic Eye exam: PRESENT: conjunctiva pink Mouth exam: PRESENT: moist Respiratory exam: PRESENT: clear to auscultation amaya. ABSENT: rales, rhonchi, wheezes Cardiovascular exam: PRESENT: RRR. ABSENT: diastolic murmur, rubs, systolic murmur GI/Abdominal exam: PRESENT: ascites, distended, normal bowel sounds, soft. ABSENT: guarding, mass, rebound, tenderness Rectal exam: PRESENT: deferred Extremities exam: PRESENT: +2 edema Neurological exam: PRESENT: alert, awake, oriented to person, oriented to place, oriented to time, oriented to situation Psychiatric exam: PRESENT: appropriate affect, normal mood Skin exam: PRESENT: dry, warm, other - Multiple small blisters along legs due to edema Results Laboratory Results: 10/24/19 17:05 10/25/19 05:20 10/25/19 10/25/19 05:20 10:40 Sodium 134.1 L Potassium 4.5 Chloride 98 Carbon Dioxide 25 Anion Gap 11 BUN 47 H Creatinine 2.06 H Est GFR ( Amer) 31 L Glucose 212 H Calcium 8.8 Phosphorus 5.0 H Magnesium 1.7 Albumin 3.5 Urine Color YELLOW Urine Appearance SLIGHTLY-CLOUDY Urine pH 5.0 Ur Specific [place] 1.014 Urine Protein 100 H Urine Glucose (UA) NEGATIVE Urine Ketones NEGATIVE Urine Blood LARGE H Urine RBC (Auto) 126 10/24/19 10/24/19 17:05 17:05 Creatine Kinase 78 NT-Pro-B Natriuret Pep 22793 H Impressions: Chest X-Ray 10/24/19 17:28 IMPRESSION: 1. Low lung volumes. NO ACUTE RADIOGRAPHIC FINDING IN THE CHEST. 2. Cardiomegaly. No evidence for failure. 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 The patient has cardiomegaly with left ventricular hypertrophy. There is mild to moderate tricuspid regurgitation with mild pulmonary hypertension. -Increased diuresis -Continue other medications and consulted cardiology. -Will monitor intake and output closely. -continue diuresis (2) Acute kidney injury superimposed on chronic kidney disease Is this a current diagnosis for this admission?: Yes Plan: -Diurese -Makes urine; give intravenous Bumex -Trend BMP, creatinine coming down with diuresis Nephrology will be available on Sunday, will consult if renal function does not improve. (3) Cardiorenal syndrome Is this a current diagnosis for this admission?: Yes (4) Anasarca associated with disorder of kidney Is this a current diagnosis for this admission?: Yes Plan: Monitor serum albumin. Aggressive diuresis as noted above. -Low-sodium diet. (5) Chronic ulcer of left foot limited to breakdown of skin Is this a current diagnosis for this admission?: Yes Plan: Due to peripheral vascular disease, avoid compression Santyl ointment and cover the lesions. Would benefit from podiatry outpatient consultation (6) Hyperglycemia due to type 2 diabetes mellitus Qualifiers: Diabetes mellitus assisted insulin use: with manager intermediate use Qualified C ode(s): E11.65 - Type 2 diabetes mellitus with hyperglycemia; Z79.4 - penitentiary (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 of insulin Is this a current diagnosis for this admission?: Yes Plan: Hold metformin Short acting insulin with sliding scale coverage. Diabetic cardiac diet Accu-Cheks (7) Longstanding persistent atrial fibrillation Is this a current diagnosis for this admission?: Yes Plan: Good rate control on current regimen. INR is supratherapeutic, holding Coumadin May benefit from daily baseline vitamin K dose to keep INR level stable by adjusting Coumadin to this baseline vitamin K level (8) COPD (chronic obstructive pulmonary disease) Qualifiers: COPD type: unspecified COPD Qualified Code(s): J44.9 - Chronic obstructive pulmonary disease, unspecified Is this a current diagnosis for this admission?: Yes Plan: Not in acute exacerbation (9) Diabetes mellitus type 2 in obese Is this a current diagnosis for this admission?: Yes Plan: As above (10) Peripheral vascular disease in diabetes mellitus Is this a current diagnosis for this admission?: Yes Plan: Status post below-knee amputation of the right leg. Continue aspirin and statin therapy. (11) Supratherapeutic INR Is this a current diagnosis for this admission?: Yes Plan: INR up to 7. Hold warfarin, not actively bleeding, hold vitamin K, let INR drift down gradu ally. - Time Time Spent with patient: 25-34 minutes - Inpatient Certification Medical Necessity: Significant Comorbidiites Make Outpatient Treatment Too Risky, Need Close Monitoring Due to Risk of Patient Decompensation, Risk of Complication if Not Cared For in Hospital
[2019-10-25] MEDS: ATORVASTATIN CALCIUM 80 MG TABLET PO SCH (21:13)
[2019-10-25] MEDS: TRAZODONE HCL 50 MG TABLET PO SCH (21:13)
[2019-10-26] MEDS: OXYCODONE HCL IR 5 MG TABLET PO PRN ×3 (01:19→17:55)
[2019-10-26] MEDS: PANTOPRAZOLE SODIUM 40 MG TABLET.DR PO SCH (05:22)
[2019-10-26 05:31] LABS: PROTHROMBIN TIME 53.9 SEC (11.4-15.4)
[2019-10-26 05:41] LABS: ALBUMIN 3.4 g/dL (3.5-5.0); ANION GAP 9 (5-19); BLOOD UREA NITROGEN 49 mg/dL (7-20); CALCIUM 8.9 mg/dL (8.4-10.2); CARBON DIOXIDE 27 mmol/L (22-30); CHLORIDE 98 mmol/L (98-107); GLUCOSE 172 mg/dL (75-110); PHOSPHORUS 4.8 mg/dL (2.5-4.5); POTASSIUM 4.5 mmol/L (3.6-5.0)
[2019-10-26] MEDS: INSULIN REG, HUMAN 100 UNIT/ML 3 ML VIAL (PYX) SUBCUT SCH ×4 (07:50→22:10)
[2019-10-26] MEDS: METOCLOPRAMIDE HCL 10 MG TABLET PO SCH ×4 (08:07→22:03)
[2019-10-26] MEDS: ACETAMINOPHEN 325 MG TABLET PO SCH (08:07)
[2019-10-26] MEDS: INSULIN NPH (ISOPHANE), HUMAN 100 UNIT/ML 3 ML SUBCUT SCH ×2 (08:09→16:05)
--- NOTE | 2019-10-26 08:34 | PDOC PROGRESS REPORT ---
Subjective Subjective:: HELDER SERNA is a 49 year old female with history of atrial fibrillation status post ablation in 2009, CHF, CAD status post three-vessel CABG in March 2010, DVT, CA, hypertension, PVD status post right below the knee amputation, COPD, DM 2, obesity, CKD, GERD, depression, and tobacco dependence, chronically anticoagulated on Coumadin who is consulted to our service for evaluation of heart failure. She has had multiple admissions to this facility for heart failure exacerbation and was actually last admitted in September 2019 at which point she was found to be in anasarca and required both IV Albumin as well as dialysis to address her fluid overload. Since discharge from the hospital back in September she continued to gain weight but unfortunately she did not respond to outpatient diuresis and developed significant edema in the abdominal area as well as the lower extremities. Since admission she had put out 730 cc of urine and feels slightly better this morning. 10/26/2019: The patient is found this morning sitting up eating breakfast. She has no cardiovascular complaints this morning. Unfortunately her fluid balance is +480 cc as of this morning. Her renal function is marginally improved. Physical exam on 10/26/2019: GENERAL: Pleasant and conversational. Oriented x3 with normal mood. Not in a cute distress. Well groomed and well developed. HEENT: Normocephalic, atraumatic. Pupils equal. Sclerae anicteric. Oropharynx moist. NECK: Difficult to evaluate for JVD given her body habitus. No carotid bruits. LUNGS: Clear to auscultation bilaterally. Normal respiratory effort without t he use of accessory muscles or intercostal retractions. CARDIOVASCULAR: Regular rate and rhythm, normal S1 and S2 without murmurs, rubs, or gallops. PMI not displaced. ABDOMEN: Protuberant and tense to palpation. Unable to assess for organomegaly. EXTREMITIES: 1+ edema on the left, 1+ edema on the right stump. SKIN: No lesions or rashes. MUSCULOSKELETAL: No chest tenderness to palpation. NEUROLOGIC: Nonfocal. No gross sensory or motor deficits bilateral upper or lower extremities. Reason For Visit: ACUTE ON CHRONIC KIDNEY INJURY,ANASARCA,CORONARY Physical Exam Vital Signs: Temp Pulse Resp BP Pulse Ox 98.4 F 80 18 116/83 96 10/26/19 00:01 10/26/19 02:00 10/26/19 00:01 10/26/19 00:01 10/26/19 00:01 Intake & Output 10/25/19 10/26/19 10/27/19 06:59 06:59 06:59 Intake Total 420 1680 Output Total 1150 1200 Balance -730 480 Weight 97.1 kg 100.4 kg Results Laboratory Results: 10/24/19 17:05 10/26/19 04:55 10/25/19 10/26/19 10:40 04:55 Sodium 133.5 L Potassium 4.5 Chloride 98 Carbon Dioxide 27 Anion Gap 9 BUN 49 H Creatinine 1.98 H Est GFR ( Amer) 32 L Glucose 172 H Calcium 8.9 Phosphorus 4.8 H Magnesium 1.7 Albumin 3.4 L Urine Color YELLOW Urine Appearance SLIGHTLY-CLOUDY Urine pH 5.0 Ur Specific Aroda 1.014 Urine Protein 100 H Urine Glucose (UA) NEGATIVE Urine Ketones NEGATIVE Urine Blood LARGE H Urine RBC (Auto) 126 10/24/19 10/24/19 17:05 17:05 Creatine Kinase 78 NT-Pro-B Natriuret Pep 76565 H Impressions: Chest X-Ray 10/24/19 17:28 IMPRESSION: 1. Low lung volumes. NO ACUTE RADIOGRAPHIC FINDING IN THE CHEST. 2. Cardiomegaly. No evidence for failure. 10/24/19 17:05 10/26/19 04:55 MCV 81 fl (80-97) 10/24/19 17:05 MCH 24.9 pg (27.0-33.4) L 10/24/19 17:05 MCHC 30.8 g/dL (32.0-36.0) L 10/24/19 17:05 RDW 20.4 % (11.5-14.0) H 10/24/19 17:05 Seg Neutrophils % 78.1 % (42-78) H 10/24/19 17:05 Carbonic Acid 1.15 mmol/L (1.05-1.35) 10/24/19 17:25 HCO3/H2CO3 Ratio 19:1 10/24/19 17:25 ABG pH 7.39 (7.35-7.45) 10/24/19 17:25 ABG pCO2 38.1 mmHg (35-45) 10/24/19 17:25 ABG pO2 66.0 mmHg (80-100) L 10/24/19 17:25 ABG HCO3 22.3 mmol/L (20-24) 10/24/19 17:25 ABG O2 Saturation 92.9 % (94-98) L 10/24/19 17:25 ABG Base Excess -2.4 mmol/L 10/24/19 17:25 FiO2 ROOM AIR 10/24/19 17:25 Chloride 98 mmol/L (98-107) 10/26/19 04:55 Carbon Dioxide 27 mmol/L (22-30) 10/26/19 04:55 Anion Gap 9 (5-19) 10/26/19 04:55 Est GFR ( Amer) 32 (>60) L 10/26/19 04:55 Glucose 172 mg/dL (75-110) H 10/26/19 04:55 Calcium 8.9 mg/dL (8.4-10.2) 10/26/19 04:55 Phosphorus 4.8 mg/dL (2.5-4.5) H 10/26/19 04:55 Magnesium 1.7 mg/dL (1.6-2.3) 10/26/19 04:55 Total Bilirubin 0.5 mg/dL (0.2-1.3) 10/24/19 17:05 AST 18 U/L (14-36) 10/24/19 17:05 Alkaline Phosphatase 66 U/L (38-126) 10/24/19 17:05 Total Protein 6.6 g/dL (6.3-8.2) 10/24/19 17:05 Albumin 3.4 g/dL (3.5-5.0) L 10/26/19 04:55 Lipase 67.2 U/L (23-300) 10/24/19 17:05 Urine Color YELLOW 10/25/19 10:40 Urine Appearance SLIGHTLY-CLOUDY 10/25/19 10:40 Urine pH 5.0 (5.0-9.0) 10/25/19 10:40 Ur Specific Aroda 1.014 10/25/19 10:40 Urine Protein 100 mg/dL (NEGATIVE) H 10/25/19 10:40 Urine Glucose (UA) NEGATIVE mg/dL (NEGATIVE) 10/25/19 10:40 Urine Ketones NEGATIVE mg/dL (NEGATIVE) 10/25/19 10:40 Urine Blood LARGE (NEGATIVE) H 10/25/19 10:40 Urine RBC (Auto) 126 /HPF 10/25/19 10:40 10/24/19 10/24/19 17:05 17:05 Creatine Kinase 78 NT-Pro-B Natriuret Pep 88603 H Current Medication List Generic Name Dose Route Start Last Admin Trade Name Freq PRN Reason Stop Dose Admin Acetaminophen 650 mg 10/24/19 20:04 Tylenol 325 Mg Tablet PO 11/23/19 20:03 Q4HP PRN FOR PAIN OR TEMP Acetaminophen 975 mg 10/25/19 08:00 10/25/19 08:40 Tylenol 325 Mg Tablet PO 11/24/19 07:59 975 mg QAM GLADIS Administration Aspirin 81 mg 10/25/19 10:00 10/25/19 10:28 Ecotrin 81 Mg Ec Tablet PO 11/24/19 09:59 81 mg DAILY GLADIS Administration Atorvastatin Calcium 80 mg 10/24/19 22:00 10/25/19 21:13 Lipitor 80 Mg Tablet PO 11/23/19 21:59 80 mg QHS GLADIS Administration Bumetanide 1 mg 10/24/19 22:00 10/25/19 21:13 Bumex Inj/Pf 1 Mg/4 Ml Sdv IV 11/23/19 21:59 1 mg Q12 GLADIS Administration Buspirone HCl 7.5 mg 10/24/19 22:00 Buspar 10 Mg Tablet PO 11/23/19 21:59 Q12 GLADIS Carvedilol 3.125 mg 10/24/19 22:00 10/25/19 21:13 Coreg 3.125 Mg Tablet PO 11/23/19 21:59 3.125 mg Q12 GLADIS Administration Citalopram Hydrobromide 40 mg 10/25/19 10:00 10/25/19 10:29 Celexa 20 Mg Tablet PO 11/24/19 09:59 40 mg DAILY GLADIS Administration Collagenase 1 applic 10/25/19 10:00 10/25/19 10:29 Santyl Ointment 30 Gm TP 11/24/19 09:59 1 applic DAILY GLADIS Administration Dextrose 12.5 gm 10/24/19 20:21 Dextrose Inj 50% Syringe (25 Gm/50 Ml) IV 11/23/19 20:20 PRN PRN FOR BG 50-69 IN ALERT PATIENT Protocol Dextrose 25 gm 10/24/19 20:21 Dextrose Inj 50% Syringe (25 Gm/50 Ml) IV 11/23/19 20:20 PRN PRN PER PROTOCOL Protocol Docusate Sodium 100 mg 10/25/19 10:00 10/25/19 17:07 Colace 100 Mg Capsule PO 11/24/19 09:59 100 mg BID GLADIS Administration Fenofibrate 145 mg 10/25/19 10:00 10/25/19 10:30 Tricor 145 Mg Tablet PO 11/24/19 09:59 145 mg DAILY GLADIS Administration Ferrous Sulfate 325 mg 10/25/19 10:00 10/25/19 10:29 Feosol 325 Mg Tablet PO 11/24/19 09:59 325 mg DAILY GLADIS Administration Glucagon 1 mg 10/24/19 20:21 Glucagen Inj 1 Mg Vial IM 11/23/19 20:20 PRN PRN Evaluate for BG < 70 Protocol Glucose 15 gm 10/24/19 20:21 Glutose 40% Gel 15 Gm Tube PO 11/23/19 20:20 PRN PRN FOR BG 50-69 IN ALERT PATIENT Protocol Glucose 30 gm 10/24/19 20:21 Glutose 40% Gel 15 Gm Tube PO 11/23/19 20:20 PRN PRN FOR BG < 50 IN ALERT PATIENT Protocol Insulin Human NPH 5 unit 10/26/19 08:00 Humulin N (Nph) Insulin 100 Unit/1 Ml 3 Ml SUBCUT 11/25/19 07:59 BIDACBS GLADIS Insulin Human Regular 0 - 12 unit 10/24/19 22:00 10/25/19 21:28 Humulin R (Pyxis) Insulin 100 Unit/Ml 3ml SUBCUT 11/23/19 21:59 4 unit ACHS GLADIS Administration Protocol Metoclopramide HCl 10 mg 10/24/19 22:00 10/25/19 21:13 Reglan 10 Mg Tablet PO 11/23/19 21:59 10 mg ACHS GLADIS Administration Oxycodone HCl 10 mg 10/24/19 23:50 10/26/19 01:19 Oxy-Ir 5 Mg Tablet PO 10/31/19 23:49 10 mg Q8HP PRN Administration PAIN Pantoprazole Sodium 40 mg 10/25/19 06:00 10/26/19 05:[address] Tablet PO 05/04/20 05:59 40 mg Q6AM GLADIS Administration Sodium Chloride 2.5 ml 10/24/19 22:00 10/26/19 05:22 Saline Flush 2.5 Ml Monoject Prefil Syrin IV 11/23/19 21:59 2.5 ml Q8 GLADIS Administration Trazodone HCl 50 mg 10/24/19 22:00 10/25/19 21:13 Desyrel 50 Mg Tablet PO 11/23/19 21:59 50 mg QHS GLADIS Administration Discontinued Medications Generic Name Dose Route Start Last Admin Trade Name Franco PRN Reason Stop Dose Admin Furosemide 40 mg 10/24/19 17:26 10/24/19 18:07 Lasix Inj/Pf 40 Mg/4 Ml Sdv IV 10/24/19 17:27 40 mg NOW ONE Administration Magnesium Sulfate/Dextrose 1 gm in 100 mls @ 100 mls/hr 10/24/19 21:30 10/24/19 23:22 Magnesium Sulfate Rtu-D5w 1 Gm/100 Ml Premix IV 10/24/19 22:29 Infused NOW ONE Infusion Insulin Human NPH 50 unit 10/25/19 16:00 10/25/19 17:33 Humulin N (Nph) Insulin 100 Unit/1 Ml 3 Ml SUBCUT 11/24/19 15:59 Not Given ACSUPPER GLADIS Insulin Human NPH Confirm 10/25/19 17:37 10/25/19 17:47 Humulin N (Nph) Insulin 100 Unit/1 Ml 3 Ml Administered 10/25/19 17:38 1 unit Dose Administration 1 unit .ROUTE .STK-MED ONE Status: Imported from PACS Assessment & Plan - Diagnosis (1) 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 Her poor oncotic pressure makes extravasation of intravascular fluid making her edematous particularly in the abdominal area which has resulted in skin blisters and weeping. Unfortunately she is 480 cc positive in her fluid balance however, luckily enough, her renal function is stable. Recommendations: -Restrict fluids to 1500 cc. -Consider Bumex drip starting at 0.5 mg/h with basic metabolic panels every 6 hours to achieve better urinary output versus providing 1 dose of albumin 30 minutes prior to Bumex. -Agree with nephrology consult to help with fluid management given her chronic kidney disease. -Low sodium diet. -Strict intake and output. -Daily weights. -Replace electrolytes as needed. -We will continue to follow-up with you. (2) Acute kidney injury superimposed on chronic kidney disease Is this a current diagnosis for this admission?: Yes Plan: Her renal function on admission was 2.49 which has marginally improved to just below 2 as of this morning which is still above her baseline. She required hemodialysis in her prior admission therefore I recommend early involvement of the nephrology team in her care. Recommendations: -I will defer further management to his primary team. -Recommend nephrology consult as planned. (3) Longstanding persistent atrial fibrillation Is this a current diagnosis for this admission?: Yes Plan: She is status post atrial fibrillation ablation in 2009. Her telemetry shows normal sinus rhythm with ventricular bigeminy and occasional ventricular couplets. She denies palpitations. Her INR is coming down but is still supratherapeutic at 5.8. Recommendations: -Continue to hold Coumadin for now. -Continue checking PT/INR and restart Coumadin when INR not supratherapeutic. -I will defer further management to primary team. (4) CAD (coronary artery disease), [place] coronary artery Qualifiers: [place] vs. transplanted heart: [place] heart Associated angina: without angina Qualified Code(s): I25.10 - Atherosclerotic heart disease of [place] coronary artery without angina pectoris Is this a current diagnosis for this admission?: Yes Plan: She is status post three-vessel CABG in March 2010 and remains chest pain- free during this hospitalization so far. Recommendations: -Continue with current medical management. -I will continue follow-up with you.
[2019-10-26] MEDS: BUMETANIDE INJ/PF 1 MG/4 ML SDV IV SCH ×2 (09:44→22:02)
[2019-10-26] MEDS: ASPIRIN 81 MG TABLET, ENT COATED PO SCH (09:46)
[2019-10-26] MEDS: FENOFIBRATE NANOCRYSTALLIZED 145 MG TABLET PO SCH (09:46)
[2019-10-26] MEDS: CARVEDILOL 3.125 MG TABLET PO SCH ×2 (09:47→22:03)
[2019-10-26] MEDS: FERROUS SULFATE 325 MG TABLET PO SCH (09:48)
[2019-10-26] MEDS: CITALOPRAM HYDROBROMIDE 20 MG TABLET PO SCH (09:48)
[2019-10-26] MEDS: COLLAGENASE CLOSTRIDIUM HIST. OINT 30 GM TP SCH (09:50)
[2019-10-26] MEDS: DOCUSATE SODIUM 100 MG CAPSULE PO SCH ×2 (09:50→17:57)
--- NOTE | 2019-10-26 10:51 | EKG REPORT ---
SEVERITY:- ABNORMAL ECG - SINUS RHYTHM VENTRICULAR BIGEMINY NONSPECIFIC INTRAVENTRICULAR CONDUCTION DELAY BORDERLINE R WAVE PROGRESSION, ANTERIOR LEADS MINIMAL ST DEPRESSION, INFERIOR LEADS : Confirmed by: Sal Solis 26-Oct-2019 10:50:38
--- NOTE | 2019-10-26 11:49 | PDOC PROGRESS REPORT ---
Subjective Progress Note for:: 10/26/19 Subjective:: Per RN, patient has had 1200 cc urine output since last night. Creatinine with slight drop. Per patient, feels better overall but still having significant bilateral lower extremity edema and abdominal edema. Cardiology recommends nephrology consult which is not possible until Sunday as we do not have coverage here. Patient has no other complaints today Reason For Visit: ACUTE ON CHRONIC KIDNEY INJURY,ANASARCA,CORONARY Physical Exam Vital Signs: Temp Pulse Resp BP Pulse Ox 98.3 F 82 16 127/76 H 93 10/26/19 07:33 10/26/19 07:33 10/26/19 07:33 10/26/19 07:33 10/26/19 07:33 Intake & Output 10/25/19 10/26/19 10/27/19 06:59 06:59 06:59 Intake Total 420 1680 Output Total 1150 1200 Balance -730 480 Weight 97.1 kg 100.4 kg General appearance: PRESENT: no acute distress, well-developed, well-nourished Head exam: PRESENT: atraumatic, normocephalic Eye exam: PRESENT: conjunctiva pink Mouth exam: PRESENT: moist Respiratory exam: PRESENT: clear to auscultation amaya. ABSENT: rales, rhonchi, wheezes Cardiovascular exam: PRESENT: RRR. ABSENT: diastolic murmur, rubs, systolic murmur GI/Abdominal exam: PRESENT: ascites, distended, normal bowel sounds, soft. ABSENT: guarding, mass, organolmegaly, rebound, tenderness Rectal exam: PRESENT: deferred Neurological exam: PRESENT: alert, awake, oriented to person, oriented to place, oriented to time, oriented to situation Psychiatric exam: PRESENT: appropriate affect, normal mood Skin exam: PRESENT: dry, warm - Healing blisters as noted before Results Laboratory Results: 10/24/19 17:05 10/26/19 04:55 10/26/19 04:55 Sodium 133.5 L Potassium 4.5 Chloride 98 Carbon Dioxide 27 Anion Gap 9 BUN 49 H Creatinine 1.98 H Est GFR ( Amer) 32 L Glucose 172 H Calcium 8.9 Phosphorus 4.8 H Magnesium 1.7 Albumin 3.4 L 10/24/19 10/24/19 17:05 17:05 Creatine Kinase 78 NT-Pro-B Natriuret Pep 52045 H Impressions: Chest X-Ray 10/24/19 17:28 IMPRESSION: 1. Low lung volumes. NO ACUTE RADIOGRAPHIC FINDING IN THE CHEST. 2. Cardiomegaly. No evidence for failure. 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 The patient has cardiomegaly with left ventricular hypertrophy. There is mild to moderate tricuspid regurgitation with mild pulmonary hypertension. -Increased diuresis -Continue home medications -Will monitor intake and output closely. -Increased dose of Bumex 2 mg IV twice daily Fluid restriction to 1500 mL/day Cardiology consulted, actively following (2) Acute kidney injury superimposed on chronic kidney disease Is this a current diagnosis for this admission?: Yes Plan: -Diurese -Makes urine; given intravenous Bumex -Trend BMP, creatinine coming down with diuresis Nephrology not available over the weekend, consult on Sunday gradually Albumin 25 g IV ordered (3) Cardiorenal syndrome Is this a current diagnosis for this admission?: Yes (4) Anasarca associated with disorder of kidney Is this a current diagnosis for this admission?: Yes (5) Chronic ulcer of left foot limited to breakdown of skin Is this a current diagnosis for this admission?: Yes (6) Hyperglycemia due to type 2 diabetes mellitus Qualifiers: Diabetes mellitus usp insulin use: with usp use Qualified Code(s): E11.65 - Type 2 diabetes mellitus with hyperglycemia; 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 Is this a current diagnosis for this admission?: Yes (7) Longstanding persistent atrial fibrillation Is this a current diagnosis for this admission?: Yes (8) COPD (chronic obstructive pulmonary disease) Qualifiers: COPD type: unspecified COPD Qualified Code(s): J44.9 - Chronic obstructive pulmonary disease, unspecified Is this a current diagnosis for this admission?: Yes (9) Diabetes mellitus type 2 in obese Is this a current diagnosis for this admission?: Yes (10) Peripheral vascular disease in diabetes mellitus Is this a current diagnosis for this admission?: Yes (11) Supratherapeutic INR Is this a current diagnosis for this admission?: Yes - Time Time Spent with patient: 25-34 minutes Medications reviewed and adjusted accordingly: Yes - Inpatient Certification Medical Necessity: Significant Comorbidiites Make Outpatient Treatment Too Risky, Need Close Monitoring Due to Risk of Patient Decompensation, Risk of Complication if Not Cared For in Hospital
[2019-10-26] MEDS: ALBUMIN HUMAN 12.5 GM/50 ML RTUINJ IV SCH ×2 (14:27→16:04)
[2019-10-26] MEDS: ATORVASTATIN CALCIUM 80 MG TABLET PO SCH (22:03)
[2019-10-26] MEDS: TRAZODONE HCL 50 MG TABLET PO SCH (22:03)
[2019-10-27] MEDS: OXYCODONE HCL IR 5 MG TABLET PO PRN ×3 (01:55→21:46)
[2019-10-27] MEDS: PANTOPRAZOLE SODIUM 40 MG TABLET.DR PO SCH (05:53)
[2019-10-27 06:06] LABS: INTERNATIONAL RATION (INR) 4.63
[2019-10-27 06:23] LABS: ANION GAP 12 (5-19); BLOOD UREA NITROGEN 43 mg/dL (7-20); CALCIUM 8.9 mg/dL (8.4-10.2); CARBON DIOXIDE 27 mmol/L (22-30); CHLORIDE 95 mmol/L (98-107); GLUCOSE 147 mg/dL (75-110); PHOSPHORUS 4.2 mg/dL (2.5-4.5); POTASSIUM 3.9 mmol/L (3.6-5.0)
[2019-10-27 06:27] LABS: ALBUMIN 3.8 g/dL (3.5-5.0)
[2019-10-27] MEDS: INSULIN NPH (ISOPHANE), HUMAN 100 UNIT/ML 3 ML SUBCUT SCH ×2 (08:04→17:46)
[2019-10-27] MEDS: ACETAMINOPHEN 325 MG TABLET PO SCH (08:05)
[2019-10-27] MEDS: METOCLOPRAMIDE HCL 10 MG TABLET PO SCH ×4 (08:05→21:52)
[2019-10-27] MEDS: INSULIN REG, HUMAN 100 UNIT/ML 3 ML VIAL (PYX) SUBCUT SCH ×4 (08:05→21:45)
[2019-10-27] MEDS: CITALOPRAM HYDROBROMIDE 20 MG TABLET PO SCH (09:40)
[2019-10-27] MEDS: FERROUS SULFATE 325 MG TABLET PO SCH (09:40)
[2019-10-27] MEDS: DOCUSATE SODIUM 100 MG CAPSULE PO SCH ×2 (09:40→18:00)
[2019-10-27] MEDS: ASPIRIN 81 MG TABLET, ENT COATED PO SCH (09:40)
[2019-10-27] MEDS: CARVEDILOL 3.125 MG TABLET PO SCH ×2 (09:40→21:47)
[2019-10-27] MEDS: BUMETANIDE INJ/PF 1 MG/4 ML SDV IV SCH ×2 (09:41→21:53)
[2019-10-27] MEDS: FENOFIBRATE NANOCRYSTALLIZED 145 MG TABLET PO SCH (09:42)
[2019-10-27] MEDS: COLLAGENASE CLOSTRIDIUM HIST. OINT 30 GM TP SCH (09:43)
[2019-10-27 11:11] LABS: INTERNATIONAL RATION (INR) 6.38
[2019-10-27] MEDS: ONDANSETRON HCL INJ/PF 4 MG/2 ML SDV IV PRN ×3 (12:21→22:39)
--- NOTE | 2019-10-27 12:42 | PDOC PROGRESS REPORT ---
Subjective Progress Note for:: 10/27/19 Subjective:: HELDER SERNA is a 49 year old female with history of atrial fibrillation status post ablation in 2009, CHF, CAD status post three-vessel CABG in March 2010, DVT, NM, hypertension, PVD status post right below the knee amputation, COPD, DM 2, obesity, CKD, GERD, depression, and tobacco dependence, chronically anticoagulated on Coumadin who is consulted to our service for evaluation of heart failure. She has had multiple admissions to this facility for heart failure exacerbation and was actually last admitted in September 2019 at which point she was found to be in anasarca and required both IV Albumin as well as dialysis to address her fluid overload. Since discharge from the hospital back in September she continued to gain weight but unfortunately she did not respond to outpatient diuresis and developed significant edema in the abdominal area as well as the lower extremities. Since admission she had put out 730 cc of urine and feels slightly better this morning. 10/27/2019: The patient is found this morning sitting up eating breakfast. She has no car diovascular complaints this morning. She is diuresing better and her fluid balance is at least one liter negative. Physical exam on 10/27/2019: GENERAL: Pleasant and conversational. Oriented x3 with normal mood. Not in acute distress. Well groomed and well developed. HEENT: Normocephalic, atraumatic. Pupils equal. Sclerae anicteric. Oropharynx moist. NECK: Difficult to evaluate for JVD given her body habitus. No carotid bruits. LUNGS: Clear to auscultation bilaterally. Normal respiratory effort without the use of accessory muscles or intercostal retractions. CARDIOVASCULAR: Regular rate and rhythm, normal S1 and S2 without murmurs, rubs, or gallops. PMI not displaced. ABDOMEN: Protuberant and tense to palpation. Unable to assess for organomegaly. EXTREMITIES: 1+ edema on the left, 1+ edema on the right stump. SKIN: No lesions or rashes. MUSCULOSKELETAL: No chest tenderness to palpation. NEUROLOGIC: Nonfocal. No gross sensory or motor deficits bilateral upper or l ower extremities. Reason For Visit: ACUTE ON CHRONIC KIDNEY INJURY,ANASARCA,CORONARY Physical Exam Vital Signs: Temp Pulse Resp BP Pulse Ox 97.8 F 78 18 126/81 H 95 10/26/19 23:35 10/27/19 07:00 10/26/19 23:35 10/26/19 23:35 10/26/19 23:35 Intake & Output 10/26/19 10/27/19 10/28/19 06:59 06:59 06:59 Intake Total 1680 1620 Output Total 1200 2650 Balance 480 -1030 Weight 100.4 kg 99.3 kg Results Laboratory Results: 10/24/19 17:05 10/27/19 05:24 10/27/19 05:24 Sodium 134.1 L Potassium 3.9 Chloride 95 L Carbon Dioxide 27 Anion Gap 12 BUN 43 H Creatinine 1.58 H Est GFR ( Amer) 42 L Glucose 147 H Calcium 8.9 Phosphorus 4.2 Magnesium 1.5 L Albumin 3.8 10/24/19 10/24/19 10/27/19 17:05 17:05 05:24 Creatine Kinase 78 NT-Pro-B Natriuret Pep 19646 H 35048 H Impressions: Chest X-Ray 10/24/19 17:28 IMPRESSION: 1. Low lung volumes. NO ACUTE RADIOGRAPHIC FINDING IN THE CHEST. 2. Cardiomegaly. No evidence for failure. 10/24/19 17:05 10/27/19 05:24 MCV 81 fl (80-97) 10/24/19 17:05 MCH 24.9 pg (27.0-33.4) L 10/24/19 17:05 MCHC 30.8 g/dL (32.0-36.0) L 10/24/19 17:05 RDW 20.4 % (11.5-14.0) H 10/24/19 17:05 Seg Neutrophils % 78.1 % (42-78) H 10/24/19 17:05 Carbonic Acid 1.15 mmol/L (1.05-1.35) 10/24/19 17:25 HCO3/H2CO3 Ratio 19:1 10/24/19 17:25 ABG pH 7.39 (7.35-7.45) 10/24/19 17:25 ABG pCO2 38.1 mmHg (35-45) 10/24/19 17:25 ABG pO2 66.0 mmHg (80-100) L 10/24/19 17:25 ABG HCO3 22.3 mmol/L (20-24) 10/24/19 17:25 ABG O2 Saturation 92.9 % (94-98) L 10/24/19 17:25 ABG Base Excess -2.4 mmol/L 10/24/19 17:25 FiO2 ROOM AIR 10/24/19 17:25 Chloride 95 mmol/L (98-107) L 10/27/19 05:24 Carbon Dioxide 27 mmol/L (22-30) 10/27/19 05:24 Anion Gap 12 (5-19) 10/27/19 05:24 Est GFR ( Amer) 42 (>60) L 10/27/19 05:24 Glucose 147 mg/dL (75-110) H 10/27/19 05:24 Calcium 8.9 mg/dL (8.4-10.2) 10/27/19 05:24 Phosphorus 4.2 mg/dL (2.5-4.5) 10/27/19 05:24 Magnesium 1.5 mg/dL (1.6-2.3) L 10/27/19 05:24 Total Bilirubin 0.5 mg/dL (0.2-1.3) 10/24/19 17:05 AST 18 U/L (14-36) 10/24/19 17:05 Alkaline Phosphatase 66 U/L (38-126) 10/24/19 17:05 Total Protein 6.6 g/dL (6.3-8.2) 10/24/19 17:05 Albumin 3.8 g/dL (3.5-5.0) 10/27/19 05:24 Lipase 67.2 U/L (23-300) 10/24/19 17:05 Urine Color YELLOW 10/25/19 10:40 Urine Appearance SLIGHTLY-CLOUDY 10/25/19 10:40 Urine pH 5.0 (5.0-9.0) 10/25/19 10:40 Ur Specific [place] 1.014 10/25/19 10:40 Urine Protein 100 mg/dL (NEGATIVE) H 10/25/19 10:40 Urine Glucose (UA) NEGATIVE mg/dL (NEGATIVE) 10/25/19 10:40 Urine Ketones NEGATIVE mg/dL (NEGATIVE) 10/25/19 10:40 Urine Blood LARGE (NEGATIVE) H 10/25/19 10:40 Urine RBC (Auto) 126 /HPF 10/25/19 10:40 10/24/19 10/24/19 10/27/19 17:05 17:05 05:24 Creatine Kinase 78 NT-Pro-B Natriuret Pep 41451 H 79584 H Current Medication List Generic Name Dose Route Start Last Admin Trade Name Freq PRN Reason Stop Dose Admin Acetaminophen 650 mg 10/24/19 20:04 Tylenol 325 Mg Tablet PO 11/23/19 20:03 Q4HP PRN FOR PAIN OR TEMP Acetaminophen 975 mg 10/25/19 08:00 10/26/19 08:07 Tylenol 325 Mg Tablet PO 11/24/19 07:59 975 mg QAM GLADIS Administration Aspirin 81 mg 10/25/19 10:00 10/26/19 09:46 Ecotrin 81 Mg Ec Tablet PO 11/24/19 09:59 81 mg DAILY GLADIS Administration Atorvastatin Calcium 80 mg 10/24/19 22:00 10/26/19 22:03 Lipitor 80 Mg Tablet PO 11/23/19 21:59 80 mg QHS GLADIS Administration Bumetanide 2 mg 10/26/19 22:00 10/26/19 22:02 Bumex Inj/Pf 1 Mg/4 Ml Sdv IV 11/25/19 21:59 2 mg Q12 GLADIS Administration Buspirone HCl 7.5 mg 10/24/19 22:00 Buspar 10 Mg Tablet PO 11/23/19 21:59 Q12 GLADIS Carvedilol 3.125 mg 10/24/19 22:00 10/26/19 22:03 Coreg 3.125 Mg Tablet PO 11/23/19 21:59 3.125 mg Q12 GLADIS Administration Citalopram Hydrobromide 40 mg 10/25/19 10:00 10/26/19 09:48 Celexa 20 Mg Tablet PO 11/24/19 09:59 40 mg DAILY GLADIS Administration Collagenase 1 applic 10/25/19 10:00 10/26/19 09:50 Santyl Ointment 30 Gm TP 11/24/19 09:59 1 applic DAILY GLADIS Administration Dextrose 12.5 gm 10/24/19 20:21 Dextrose Inj 50% Syringe (25 Gm/50 Ml) IV 11/23/19 20:20 PRN PRN FOR BG 50-69 IN ALERT PATIENT Protocol Dextrose 25 gm 10/24/19 20:21 Dextrose Inj 50% Syringe (25 Gm/50 Ml) IV 11/23/19 20:20 PRN PRN PER PROTOCOL Protocol Docusate Sodium 100 mg 10/25/19 10:00 10/26/19 17:57 Colace 100 Mg Capsule PO 11/24/19 09:59 Not Given BID GLADIS Fenofibrate 145 mg 10/25/19 10:00 10/26/19 09:46 Tricor 145 Mg Tablet PO 11/24/19 09:59 145 mg DAILY GLADIS Administration Ferrous Sulfate 325 mg 10/25/19 10:00 10/26/19 09:48 Feosol 325 Mg Tablet PO 11/24/19 09:59 325 mg DAILY GLADIS Administration Glucagon 1 mg 10/24/19 20:21 Glucagen Inj 1 Mg Vial IM 11/23/19 20:20 PRN PRN Evaluate for BG < 70 Protocol Glucose 15 gm 10/24/19 20:21 Glutose 40% Gel 15 Gm Tube PO 11/23/19 20:20 PRN PRN FOR BG 50-69 IN ALERT PATIENT Protocol Glucose 30 gm 10/24/19 20:21 Glutose 40% Gel 15 Gm Tube PO 11/23/19 20:20 PRN PRN FOR BG < 50 IN ALERT PATIENT Protocol Insulin Human NPH 5 unit 10/26/19 08:00 10/26/19 16:05 Humulin N (Nph) Insulin 100 Unit/1 Ml 3 Ml SUBCUT 11/25/19 07:59 5 unit BIDACBS GLADIS Administration Insulin Human Regular 0 - 12 unit 10/24/19 22:00 10/26/19 22:10 Humulin R (Pyxis) Insulin 100 Unit/Ml 3ml SUBCUT 11/23/19 21:59 2 unit ACHS GLADIS Administration Protocol Metoclopramide HCl 10 mg 10/24/19 22:00 10/26/19 22:03 Reglan 10 Mg Tablet PO 11/23/19 21:59 10 mg ACHS GLADIS Administration Oxycodone HCl 10 mg 10/24/19 23:50 10/27/19 01:55 Oxy-Ir 5 Mg Tablet PO 10/31/19 23:49 10 mg Q8HP PRN Administration PAIN Pantoprazole Sodium 40 mg 10/25/19 06:00 10/27/19 05:[address] Tablet PO 11/24/19 05:59 40 mg Q6AM GLADIS Administration Sodium Chloride 2.5 ml 10/24/19 22:00 10/27/19 05:53 Saline Flush 2.5 Ml Monoject Prefil Syrin IV 11/23/19 21:59 2.5 ml Q8 GLADIS Administration Trazodone HCl 50 mg 10/24/19 22:00 10/26/19 22:03 Desyrel 50 Mg Tablet PO 11/23/19 21:59 50 mg QHS GLADIS Administration Discontinued Medications Generic Name Dose Route Start Last Admin Trade Name Franco PRN Reason Stop Dose Admin Bumetanide 1 mg 10/24/19 22:00 10/26/19 09:44 Bumex Inj/Pf 1 Mg/4 Ml Sdv IV 11/23/19 21:59 1 mg Q12 GLADIS Administration Furosemide 40 mg 10/24/19 17:26 10/24/19 18:07 Lasix Inj/Pf 40 Mg/4 Ml Sdv IV 10/24/19 17:27 40 mg NOW ONE Administration Magnesium Sulfate/Dextrose 1 gm in 100 mls @ 100 mls/hr 10/24/19 21:30 10/24/19 23:22 Magnesium Sulfate Rtu-D5w 1 Gm/100 Ml Premix IV 10/24/19 22:29 Infused NOW ONE Infusion Albumin Human 12.5 gm in 50 mls @ 50 mls/hr 10/26/19 13:00 10/26/19 17:04 Albuminar-25 Rtu Inj 12.5 Gm/50 Ml Premix IV 10/26/19 14:59 Infused Q1H GLADIS Infusion Insulin Human NPH 50 unit 10/25/19 16:00 10/25/19 17:33 Humulin N (Nph) Insulin 100 Unit/1 Ml 3 Ml SUBCUT 11/24/19 15:59 Not Given ACSUPPER GLADIS Insulin Human NPH Confirm 10/25/19 17:37 10/25/19 17:47 Humulin N (Nph) Insulin 100 Unit/1 Ml 3 Ml Administered 10/25/19 17:38 1 unit Dose Administration 1 unit .ROUTE .STK-MED ONE Assessment & Plan - Diagnosis (1) 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 She is finally diuresing and her fluid balance is a little over -1L as of this am. Her proBNP is still elevated and at close to 2x her prior one in January 2019. Her renal function is improving. Recommendations: -Continue to restrict fluids to 1500 cc. -Continue with current management. -Agree with nephrology consult to help with fluid management given her chronic kidney disease. -Low sodium diet. -Strict intake and output. -Daily weights. -Replace electrolytes as needed. -We will continue to follow-up with you. (2) Acute kidney injury superimposed on chronic kidney disease Is this a current diagnosis for this admission?: Yes Plan: Her renal function on admission was 2.49 which has improved and is now 1.58. Of note, she required hemodialysis in her prior admission therefore I recommend e kaci involvement of the nephrology team in her care. Recommendations: -I will defer further management to his primary team. -Recommend nephrology consult as planned. (3) Longstanding persistent atrial fibrillation Is this a current diagnosis for this admission?: Yes Plan: She is status post atrial fibrillation ablation in 2009. Her telemetry shows normal sinus rhythm with ventricular bigeminy and occasional ventricular cou plets. She denies palpitations. Her INR is coming down but is still supratherapeutic. Recommendations: -Continue to hold Coumadin for now. -Continue checking PT/INR and restart Coumadin when INR not supratherapeutic. -I will defer further management to primary team. (4) CAD (coronary artery disease), [place] coronary artery Qualifiers: [place] vs. transplanted heart: [place] heart Associated angina: without angina Qualified Code(s): I25.10 - Atherosclerotic heart disease of [place] coronary artery without angina pectoris Is this a current diagnosis for this admission?: Yes Plan: She is status post three-vessel CABG in March 2010 and remains chest pain- free during this hospitalization so far. Recommendations: -Continue with current medical management. -I will continue follow-up with you.
--- NOTE | 2019-10-27 12:43 | PDOC PROGRESS REPORT ---
Subjective Progress Note for:: 10/27/19 Subjective:: Patient claims that she feels better since coming in. She continues to endorse lower extremity edema which is improved. Her Coumadin is on hold and her INR has drifted down gradually. Reason For Visit: ACUTE ON CHRONIC KIDNEY INJURY,ANASARCA,CORONARY Physical Exam Vital Signs: Temp Pulse Resp BP Pulse Ox 97.8 F 78 18 126/81 H 95 10/26/19 23:35 10/27/19 07:00 10/26/19 23:35 10/26/19 23:35 10/26/19 23:35 Intake & Output 10/26/19 10/27/19 10/28/19 06:59 06:59 06:59 Intake Total 1680 1620 Output Total 1200 2650 Balance 480 -1030 Weight 100.4 kg 99.3 kg General appearance: PRESENT: no acute distress, cooperative, obese, well- developed, well-nourished Head exam: PRESENT: atraumatic, normocephalic Eye exam: PRESENT: conjunctiva pink, EOMI Mouth exam: PRESENT: moist Neck exam: PRESENT: JVD Cardiovascular exam: PRESENT: RRR, +S1, +S2 Pulses: PRESENT: normal radial pulses GI/Abdominal exam: PRESENT: ascites, soft Rectal exam: PRESENT: deferred Musculoskeletal exam: PRESENT: other Neurological exam: PRESENT: alert, awake, oriented to person, oriented to place, oriented to time, oriented to situation Psychiatric exam: PRESENT: appropriate affect Skin exam: PRESENT: dry, intact, skin tears Results Laboratory Results: 10/24/19 17:05 10/27/19 05:24 10/27/19 05:24 Sodium 134.1 L Potassium 3.9 Chloride 95 L Carbon Dioxide 27 Anion Gap 12 BUN 43 H Creatinine 1.58 H Est GFR ( Amer) 42 L Glucose 147 H Calcium 8.9 Phosphorus 4.2 Magnesium 1.5 L Albumin 3.8 10/24/19 10/24/19 10/27/19 17:05 17:05 05:24 Creatine Kinase 78 NT-Pro-B Natriuret Pep 78324 H 99842 H Impressions: Chest X-Ray 10/24/19 17:28 IMPRESSION: 1. Low lung volumes. NO ACUTE RADIOGRAPHIC FINDING IN THE CHEST. 2. Cardiomegaly. No evidence for failure. Assessment & Plan - Diagnosis (1) Acute exacerbation of CHF (congestive heart failure) Qualifiers: Heart failure type: unspecified Qualified Code(s): I50.9 - Heart failure, unspecified Is this a current diagnosis for this admission?: Yes Plan: Continue to watch fluid intake. I's and O's. Agree with continued use of diuretics Patient continues to be volume overloaded and will continue to require diuresis. Most recent echocardiogram in the office that showed mildly reduced left ventricular ejection fraction at approximately 45%. (2) Hypertension Qualifiers: Hypertension type: essential hypertension Qualified Code(s): I10 - Essential (primary) hypertension Is this a current diagnosis for this admission?: Yes Plan: We will watch blood pressure as we continue to diurese (3) Medical non-compliance Is this a current diagnosis for this admission?: Yes Plan: I suspect that there may be a compliance issue with her INR being suprath erapeutic and also her decompensating into heart failure. Patient claims that she had not interrupted her diuretic therapy. - Notes Notes: Supratherapeutic INR with INR declining gradually. Warfarin therapy is on hold Patient is presently in sinus rhythm with PVCs. Continue to diurese
--- NOTE | 2019-10-27 14:56 | PDOC PROGRESS REPORT ---
Subjective Progress Note for:: 10/27/19 Subjective:: Urine output 2650 cc since yesterday, now net -1030 cc. Per patient, she does feel better but not back to baseline and her legs/abdomen are still quite edematous. Renal function continues to improve with a much greater drop in creatinine today. Cardiology wants nephrology consulted and I placed this consult. Other than edema, patient does not have any specific new complaints. Reason For Visit: ACUTE ON CHRONIC KIDNEY INJURY,ANASARCA,CORONARY Physical Exam Vital Signs: Temp Pulse Resp BP Pulse Ox 98.1 F 80 16 136/77 H 97 10/27/19 10:57 10/27/19 10:57 10/27/19 10:57 10/27/19 10:57 10/27/19 10:57 Intake & Output 10/26/19 10/27/19 10/28/19 06:59 06:59 06:59 Intake Total 1680 1620 Output Total 1200 2650 Balance 480 -1030 Weight 100.4 kg 99.3 kg General appearance: PRESENT: no acute distress, well-developed, well-nourished Head exam: PRESENT: atraumatic, normocephalic Eye exam: PRESENT: conjunctiva pink Mouth exam: PRESENT: moist Respiratory exam: PRESENT: clear to auscultation amaya. ABSENT: rales, rhonchi, wheezes Cardiovascular exam: PRESENT: RRR. ABSENT: diastolic murmur, rubs, systolic murmur GI/Abdominal exam: PRESENT: ascites, distended, normal bowel sounds, soft. ABSENT: guarding, mass, organolmegaly, rebound, tenderness Rectal exam: PRESENT: deferred Extremities exam: PRESENT: +2 edema Neurological exam: PRESENT: alert, awake, oriented to person, oriented to place, oriented to time, oriented to situation Psychiatric exam: PRESENT: appropriate affect, normal mood Skin exam: PRESENT: dry, warm, other - Healing fluid pressure blisters as before Results Laboratory Results: 10/24/19 17:05 10/27/19 05:24 10/27/19 05:24 Sodium 134.1 L Potassium 3.9 Chloride 95 L Carbon Dioxide 27 Anion Gap 12 BUN 43 H Creatinine 1.58 H Est GFR ( Amer) 42 L Glucose 147 H Calcium 8.9 Phosphorus 4.2 Magnesium 1.5 L Albumin 3.8 10/24/19 10/24/19 10/27/19 17:05 17:05 05:24 Creatine Kinase 78 NT-Pro-B Natriuret Pep 78283 H 36060 H Impressions: Chest X-Ray 10/24/19 17:28 IMPRESSION: 1. Low lung volumes. NO ACUTE RADIOGRAPHIC FINDING IN THE CHEST. 2. Cardiomegaly. No evidence for failure. 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 The patient has cardiomegaly with left ventricular hypertrophy. There is mild to moderate tricuspid regurgitation with mild pulmonary hypertension. -Increased diuresis -Continue home medications -Will monitor intake and output closely. -Increased dose of Bumex 2 mg IV twice daily, continued as this dose seems to be quite effective Fluid restriction to 1500 mL/day Cardiology consulted, actively following (2) Acute kidney injury superimposed on chronic kidney disease Is this a current diagnosis for this admission?: Yes Plan: -Diurese -Makes urine; given intravenous Bumex -Trend BMP, creatinine coming down with diuresis Nephrology consulted; patient has needed short-term dialysis sessions in the past Albumin 25 g IV ordered (3) Cardiorenal syndrome Is this a current diagnosis for this admission?: Yes Plan: Trending creatinine which has significantly improved from admission (4) Anasarca associated with disorder of kidney Is this a current diagnosis for this admission?: Yes (5) Chronic ulcer of left foot limited to breakdown of skin Is this a current diagnosis for this admission?: Yes (6) Hyperglycemia due to type 2 diabetes mellitus Qualifiers: Diabetes mellitus care home insulin use: with intermodal dispatcher use Qualified Code(s): E11.65 - Type 2 diabetes mellitus with hyperglycemia; Z79.4 - [facility] (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 of insulin Is this a current diagnosis for this admission?: Yes (7) Longstanding persistent atrial fibrillation Is this a current diagnosis for this admission?: Yes (8) COPD (chronic obstructive pulmonary disease) Qualifiers: COPD type: unspecified COPD Qualified Code(s): J44.9 - Chronic obstructive pulmonary disease, unspecified Is this a current diagnosis for this admission?: Yes (9) Diabetes mellitus type 2 in obese Is this a current diagnosis for this admission?: Yes (10) Peripheral vascular disease in diabetes mellitus Is this a current diagnosis for this admission?: Yes (11) Supratherapeutic INR Is this a current diagnosis for this admission?: Yes - Time Time Spent with patient: 25-34 minutes Medications reviewed and adjusted accordingly: Yes - Inpatient Certification Medical Necessity: Significant Comorbidiites Make Outpatient Treatment Too Risky, Need Close Monitoring Due to Risk of Patient Decompensation, Risk of Complication if Not Cared For in Hospital
[2019-10-27] MEDS: BUSPIRONE HCL 10 MG TABLET PO SCH ×2 (17:45→21:47)
[2019-10-27] MEDS: TRAZODONE HCL 50 MG TABLET PO SCH (21:47)
[2019-10-27] MEDS: ATORVASTATIN CALCIUM 80 MG TABLET PO SCH (21:54)
[2019-10-28] MEDS: ONDANSETRON HCL INJ/PF 4 MG/2 ML SDV IV PRN ×4 (02:50→19:54)
[2019-10-28] MEDS: ACETAMINOPHEN 325 MG TABLET PO PRN (02:54)
[2019-10-28] MEDS: BUSPIRONE HCL 10 MG TABLET PO SCH ×3 (06:08→21:27)
[2019-10-28] MEDS: PANTOPRAZOLE SODIUM 40 MG TABLET.DR PO SCH (06:08)
[2019-10-28] MEDS: OXYCODONE HCL IR 5 MG TABLET PO PRN ×2 (06:09→15:04)
[2019-10-28] MEDS: ACETAMINOPHEN 325 MG TABLET PO SCH (08:41)
[2019-10-28] MEDS: INSULIN NPH (ISOPHANE), HUMAN 100 UNIT/ML 3 ML SUBCUT SCH ×2 (08:43→17:22)
[2019-10-28] MEDS: INSULIN REG, HUMAN 100 UNIT/ML 3 ML VIAL (PYX) SUBCUT SCH ×4 (08:44→23:57)
[2019-10-28] MEDS: METOCLOPRAMIDE HCL 10 MG TABLET PO SCH ×4 (08:44→21:27)
[2019-10-28] MEDS: BUMETANIDE INJ/PF 1 MG/4 ML SDV IV SCH ×2 (10:09→21:26)
[2019-10-28] MEDS: DOCUSATE SODIUM 100 MG CAPSULE PO SCH ×2 (10:10→17:23)
[2019-10-28] MEDS: FENOFIBRATE NANOCRYSTALLIZED 145 MG TABLET PO SCH (10:10)
[2019-10-28] MEDS: CITALOPRAM HYDROBROMIDE 20 MG TABLET PO SCH (10:10)
[2019-10-28] MEDS: FERROUS SULFATE 325 MG TABLET PO SCH (10:10)
[2019-10-28] MEDS: ASPIRIN 81 MG TABLET, ENT COATED PO SCH (10:10)
[2019-10-28] MEDS: COLLAGENASE CLOSTRIDIUM HIST. OINT 30 GM TP SCH (10:10)
[2019-10-28] MEDS: CARVEDILOL 3.125 MG TABLET PO SCH ×2 (10:10→21:27)
[2019-10-28] MEDS: MAGNESIUM OXIDE 400 MG TABLET PO SCH (13:19)
[2019-10-28] MEDS: DIPHENHYDRAMINE HCL 25 MG CAPSULE PO PRN (13:29)
--- NOTE | 2019-10-28 16:16 | Progress Note ---
Provider Note Provider Note: I contacted the patient's outpatient pension administrator this morning, Dr. Jeremias Murphy to discuss whether he wanted me to follow this patient or not. He stated that, as of today, he will be following the patient.
--- NOTE | 2019-10-28 16:22 | PDOC PROGRESS REPORT ---
Subjective Progress Note for:: 10/28/19 Subjective:: Feels better. Denies chest pain or dyspnea. Weeping blister on LLE bandaged. Overall edema is improved. Reason For Visit: ACUTE ON CHRONIC KIDNEY INJURY,ANASARCA,CORONARY Physical Exam Vital Signs: Temp Pulse Resp BP Pulse Ox 98.3 F 78 12 134/78 H 99 10/28/19 15:46 10/28/19 15:46 10/28/19 15:46 10/28/19 15:46 10/28/19 15:46 Intake & Output 10/27/19 10/28/19 10/29/19 06:59 06:59 06:59 Intake Total 1620 1942 965 Output Total 2650 2875 525 Balance -1030 -933 440 Weight 99.3 kg 96.5 kg General appearance: PRESENT: no acute distress, cooperative, well-developed, well-nourished Head exam: PRESENT: atraumatic, normocephalic Eye exam: PRESENT: conjunctiva pink Mouth exam: PRESENT: moist Teeth exam: PRESENT: poor dentation Respiratory exam: PRESENT: clear to auscultation amaya, symmetrical, unlabored Cardiovascular exam: PRESENT: RRR, +S1, +S2 Pulses: PRESENT: normal radial pulses GI/Abdominal exam: PRESENT: soft Rectal exam: PRESENT: deferred Extremities exam: PRESENT: other - AKA R Neurological exam: PRESENT: alert, awake, oriented to person, oriented to place, oriented to time, oriented to situation Psychiatric exam: PRESENT: appropriate affect Skin exam: PRESENT: dry, intact, normal color Results Laboratory Results: 10/24/19 17:05 10/27/19 05:24 10/24/19 10/24/19 10/27/19 17:05 17:05 05:24 Creatine Kinase 78 NT-Pro-B Natriuret Pep [id number] H 08093 H Impressions: Chest X-Ray 10/24/19 17:28 IMPRESSION: 1. Low lung volumes. NO ACUTE RADIOGRAPHIC FINDING IN THE CHEST. 2. Cardiomegaly. No evidence for failure. Assessment & Plan - Diagnosis (1) Acute exacerbation of CHF (congestive heart failure) Qualifiers: Heart failure type: unspecified Qualified Code(s): I50.9 - Heart failure, unspecified Is this a current diagnosis for this admission?: Yes Plan: Continue to watch fluid intake. Has had favorable clinical response to IV Bumetanide and Albumin Edema and Lung exam have improved. LVEF mildly reduced on most recent out patient Echo ~45% (2) Hypertension Qualifiers: Hypertension type: essential hypertension Qualified Code(s): I10 - Essential (primary) hypertension Is this a current diagnosis for this admission?: Yes Plan: We will watch blood pressure as we continue to diurese (3) Medical non-compliance Is this a current diagnosis for this admission?: Yes Plan: I suspect that there may be a compliance issue with her INR being supratherapeutic and also her decompensating into heart failure. Patient claims that she had not interrupted her diuretic therapy. (4) Supratherapeutic INR Is this a current diagnosis for this admission?: Yes Plan: INR is still elevated Warfarin is on hold Indicated for PAF - Notes Notes: Has had good clinical response to diuretic + Albumin. Magnesium reduced due to diuresis and to be replaced. Renal function improved.
--- NOTE | 2019-10-28 17:46 | PDOC PROGRESS REPORT ---
Subjective Progress Note for:: 10/28/19 Subjective:: Urine output is still doing well with approximately 3 L out since yesterday. Continued on higher dose Bumex. Nephrology consulted but they have not seen patient yet, not sure how much help they will be since patient is making a great deal of urine and her renal function is already improving. May be appropriate for her to just follow-up with them outpatient. Spoke personally with Dr. Luis who is very appreciative of our care. He stated he highly suspects patient is noncompliant with her medications at home. INR is still slowly/gradually coming down. Blood culture negative. Magnesium low replating Reason For Visit: ACUTE ON CHRONIC KIDNEY INJURY,ANASARCA,CORONARY Physical Exam Vital Signs: Temp Pulse Resp BP Pulse Ox 98.3 F 78 12 134/78 H 99 10/28/19 15:46 10/28/19 15:46 10/28/19 15:46 10/28/19 15:46 10/28/19 15:46 Intake & Output 10/27/19 10/28/19 10/29/19 06:59 06:59 06:59 Intake Total 1620 1942 965 Output Total 2650 2875 525 Balance -1030 -933 440 Weight 99.3 kg 96.5 kg General appearance: PRESENT: no acute distress, well-developed, well-nourished Head exam: PRESENT: atraumatic, normocephalic Eye exam: PRESENT: conjunctiva pink Mouth exam: PRESENT: moist Respiratory exam: PRESENT: clear to auscultation amaya. ABSENT: rales, rhonchi, wheezes Cardiovascular exam: PRESENT: RRR. ABSENT: diastolic murmur, rubs, systolic murmur GI/Abdominal exam: PRESENT: normal bowel sounds, soft. ABSENT: distended, guarding, mass, organolmegaly, rebound, tenderness Extremities exam: PRESENT: +2 edema - Perhaps slightly improved tense bilateral lower extremity edema Neurological exam: PRESENT: alert, awake Psychiatric exam: PRESENT: appropriate affect, normal mood Skin exam: PRESENT: dry, intact, warm Results Laboratory Results: 10/24/19 17:05 10/27/19 05:24 10/24/19 10/24/19 10/27/19 17:05 17:05 05:24 Creatine Kinase 78 NT-Pro-B Natriuret Pep 01226 H 19088 H Impressions: Chest X-Ray 10/24/19 17:28 IMPRESSION: 1. Low lung volumes. NO ACUTE RADIOGRAPHIC FINDING IN THE CHEST. 2. Cardiomegaly. No evidence for failure. 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 The patient has cardiomegaly with left ventricular hypertrophy. There is mild to moderate tricuspid regurgitation with mild pulmonary hypertension. -Increased diuresis -Continue home medications -Will monitor intake and output closely. -Increased dose of Bumex 2 mg IV twice daily, continued as this dose seems to be quite effective Fluid restriction to 1500 mL/day Cardiology consulted, actively following Continued on higher dose Bumex which can be converted to oral equivalent at discharge (2) Acute kidney injury superimposed on chronic kidney disease Is this a current diagnosis for this admission?: Yes Plan: -Diurese -Makes urine; given intravenous Bumex -Trend BMP, creatinine coming down with diuresis Nephrology consulted; patient has needed short-term dialysis sessions in the past Albumin 25 g IV ordered Significant gradual improvement (3) Cardiorenal syndrome Is this a current diagnosis for this admission?: Yes (4) Anasarca associated with disorder of kidney Is this a current diagnosis for this admission?: Yes (5) Chronic ulcer of left foot limited to breakdown of skin Is this a current diagnosis for this admission?: Yes (6) Hyperglycemia due to type 2 diabetes mellitus Qualifiers: Diabetes mellitus residential insulin use: with exterminator helper use Qualified Code(s): E11.65 - Type 2 diabetes mellitus with hyperglycemia; 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.4 - 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 supervisor (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 of insulin Is this a current diagnosis for this admission?: Yes (7) Longstanding persistent atrial fibrillation Is this a current diagnosis for this admission?: Yes (8) COPD (chronic obstructive pulmonary disease) Qualifiers: COPD type: unspecified COPD Qualified Code(s): J44.9 - Chronic obstructive pulmonary disease, unspecified Is this a current diagnosis for this admission?: Yes (9) Diabetes mellitus type 2 in obese Is this a current diagnosis for this admission?: Yes (10) Peripheral vascular disease in diabetes mellitus Is this a current diagnosis for this admission?: Yes (11) Supratherapeutic INR Is this a current diagnosis for this admission?: Yes Plan: INR up to 7. Hold warfarin, not actively bleeding, hold vitamin K, let INR drift down gradually. Would likely benefit from low-dose baseline vitamin K and then Coumadin dose can be adjusted to this as her INR is extremely variable based on her diet and she does not eat a consistent diet - Time Time Spent with patient: 35 or more minutes Medications reviewed and adjusted accordingly: Yes - Inpatient Certification Medical Necessity: Significant Comorbidiites Make Outpatient Treatment Too Risky, Need Close Monitoring Due to Risk of Patient Decompensation, Risk of Complication if Not Cared For in Hospital
[2019-10-28] MEDS: TRAZODONE HCL 50 MG TABLET PO SCH (21:27)
[2019-10-28] MEDS: ATORVASTATIN CALCIUM 80 MG TABLET PO SCH (21:27)
[2019-10-29] MEDS: ONDANSETRON HCL INJ/PF 4 MG/2 ML SDV IV PRN ×5 (00:44→20:31)
[2019-10-29] MEDS: OXYCODONE HCL IR 5 MG TABLET PO PRN ×3 (00:45→18:03)
[2019-10-29] MEDS: BUSPIRONE HCL 10 MG TABLET PO SCH ×3 (06:01→21:45)
[2019-10-29] MEDS: PANTOPRAZOLE SODIUM 40 MG TABLET.DR PO SCH (06:01)
[2019-10-29] MEDS: INSULIN NPH (ISOPHANE), HUMAN 100 UNIT/ML 3 ML SUBCUT SCH ×3 (08:00→17:26)
[2019-10-29] MEDS: INSULIN REG, HUMAN 100 UNIT/ML 3 ML VIAL (PYX) SUBCUT SCH ×5 (08:21→21:45)
[2019-10-29] MEDS: BUMETANIDE INJ/PF 1 MG/4 ML SDV IV SCH ×2 (08:59→21:44)
[2019-10-29] MEDS: METOCLOPRAMIDE HCL 10 MG TABLET PO SCH ×4 (09:01→21:45)
[2019-10-29] MEDS: COLLAGENASE CLOSTRIDIUM HIST. OINT 30 GM TP SCH (09:02)
[2019-10-29] MEDS: FENOFIBRATE NANOCRYSTALLIZED 145 MG TABLET PO SCH (09:02)
[2019-10-29] MEDS: ACETAMINOPHEN 325 MG TABLET PO SCH (09:09)
[2019-10-29] MEDS: DOCUSATE SODIUM 100 MG CAPSULE PO SCH ×2 (09:12→17:29)
[2019-10-29] MEDS: MAGNESIUM OXIDE 400 MG TABLET PO SCH (09:12)
[2019-10-29] MEDS: FERROUS SULFATE 325 MG TABLET PO SCH (09:12)
[2019-10-29] MEDS: ASPIRIN 81 MG TABLET, ENT COATED PO SCH (09:13)
[2019-10-29] MEDS: CARVEDILOL 3.125 MG TABLET PO SCH ×2 (09:13→21:46)
[2019-10-29] MEDS: CITALOPRAM HYDROBROMIDE 20 MG TABLET PO SCH (10:03)
[2019-10-29 10:10] LABS: PROTHROMBIN TIME 28.3 SEC (11.4-15.4)
[2019-10-29 10:20] LABS: ANION GAP 10 (5-19); BLOOD UREA NITROGEN 37 mg/dL (7-20); CALCIUM 9.1 mg/dL (8.4-10.2); CARBON DIOXIDE 29 mmol/L (22-30); CHLORIDE 96 mmol/L (98-107); GLUCOSE 174 mg/dL (75-110); POTASSIUM 3.9 mmol/L (3.6-5.0)
--- NOTE | 2019-10-29 14:56 | PDOC PROGRESS REPORT ---
Subjective Progress Note for:: 10/29/19 Subjective:: Patient still having over 2 L out per day, however she is now net positive and appears to be due to excessive fluid intake orally. I had a long talk with the patient today about limiting her fluids to 1.5 L/day as has been outlined by cardiology. During our encounter today, I noticed she had 5 different drinks on her meal tray including 3 bottles of water. She seemed annoyed at the thought of limiting her fluid intake but agreed she would participate in this i ntervention. Discussed the case with nursing as well who will keep fluids given to patient at a minimum and monitor p.o. intake more closely. Patient's legs and abdomen are still rather tight with fluid but legs seem to be a bit less so today. Still have a considerable way to go getting fluid off. Reason For Visit: ACUTE ON CHRONIC KIDNEY INJURY,ANASARCA,CORONARY Physical Exam Vital Signs: Temp Pulse Resp BP Pulse Ox 98.1 F 81 18 135/84 H 98 10/28/19 23:40 10/29/19 07:00 10/28/19 23:40 10/28/19 23:40 10/28/19 23:40 Intake & Output 10/28/19 10/29/19 10/30/19 06:59 06:59 06:59 Intake Total 1942 2332 Output Total 2875 2100 Balance -933 232 Weight 96.5 kg 96.5 kg General appearance: PRESENT: no acute distress, well-developed, well-nourished Head exam: PRESENT: atraumatic, normocephalic Eye exam: PRESENT: conjunctiva pink Mouth exam: PRESENT: moist Respiratory exam: PRESENT: clear to auscultation amaya. ABSENT: rales, rhonchi, wheezes Cardiovascular exam: PRESENT: RRR. ABSENT: diastolic murmur, rubs, systolic murmur GI/Abdominal exam: PRESENT: normal bowel sounds, soft, other - Pitting abdominal wall edema. ABSENT: distended, guarding, mass, organolmegaly, rebound, te nderness Extremities exam: PRESENT: pedal edema, +2 edema Neurological exam: PRESENT: alert, awake, oriented to person, oriented to place, oriented to time, oriented to situation Psychiatric exam: PRESENT: appropriate affect, normal mood Skin exam: PRESENT: dry, intact, warm Results Laboratory Results: 10/24/19 17:05 10/29/19 09:54 10/29/19 09:54 Sodium 135.1 L Potassium 3.9 Chloride 96 L Carbon Dioxide 29 Anion Gap 10 BUN 37 H Creatinine 1.24 Est GFR ( Amer) 55 L Glucose 174 H Calcium 9.1 Magnesium 1.5 L 10/24/19 10/24/19 10/27/19 17:05 17:05 05:24 Creatine Kinase 78 NT-Pro-B Natriuret Pep 71995 H 39653 H Impressions: Chest X-Ray 10/24/19 17:28 IMPRESSION: 1. Low lung volumes. NO ACUTE RADIOGRAPHIC FINDING IN THE CHEST. 2. Cardiomegaly. No evidence for failure. 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 The patient has cardiomegaly with left ventricular hypertrophy. There is mild to moderate tricuspid regurgitation with mild pulmonary hypertension. -Increased diuresis -Continue home medications -Will monitor intake and output closely. -Increased dose of Bumex 2 mg IV twice daily, continued as this dose seems to be quite effective Fluid restriction to 1500 mL/day; patient likely has excessive fluid intake throughout the day, discussed with nursing and patient to limit fluid intake Cardiology consulted, actively following Continued on higher dose Bumex which can be converted to oral equivalent at discharge (2) Acute kidney injury superimposed on chronic kidney disease Is this a current diagnosis for this admission?: Yes (3) Cardiorenal syndrome Is this a current diagnosis for this admission?: Yes (4) Anasarca associated with disorder of kidney Is this a current diagnosis for this admission?: Yes (5) Chronic ulcer of left foot limited to breakdown of skin Is this a current diagnosis for this admission?: Yes (6) Hyperglycemia due to type 2 diabetes mellitus Qualifiers: Diabetes mellitus longterm insulin use: with longterm use Qualified Code(s): E11.65 - Type 2 diabetes mellitus with hyperglycemia; 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 Is this a current diagnosis for this admission?: Yes (7) Longstanding persistent atrial fibrillation Is this a current diagnosis for this admission?: Yes (8) COPD (chronic obstructive pulmonary disease) Qualifiers: COPD type: unspecified COPD Qualified Code(s): J44.9 - Chronic obstructive pulmonary disease, unspecified Is this a current diagnosis for this admission?: Yes (9) Diabetes mellitus type 2 in obese Is this a current diagnosis for this admission?: Yes (10) Peripheral vascular disease in diabetes mellitus Is this a current diagnosis for this admission?: Yes (11) Supratherapeutic INR Is this a current diagnosis for this admission?: Yes Plan: INR up to 7. Hold warfarin, not actively bleeding, hold vitamin K, let INR drift down gradually. Would likely benefit from low-dose baseline vitamin K and then Coumadin dose can be adjusted to this as her INR is extremely variable based on her diet and she does not eat a consistent diet INR finally down to 2.6 on 10/28, can restart Coumadin at a very low dose - Time Time Spent with patient: 25-34 minutes Medications reviewed and adjusted accordingly: Yes - Inpatient Certification Medical Necessity: Significant Comorbidiites Make Outpatient Treatment Too Risky, Need Close Monitoring Due to Risk of Patient Decompensation, Risk of Complication if Not Cared For in Hospital
[2019-10-29] MEDS: TRAZODONE HCL 50 MG TABLET PO SCH (21:45)
[2019-10-29] MEDS: ATORVASTATIN CALCIUM 80 MG TABLET PO SCH (21:45)
[2019-10-30] MEDS: ONDANSETRON HCL INJ/PF 4 MG/2 ML SDV IV PRN ×5 (00:35→23:09)
[2019-10-30] MEDS: OXYCODONE HCL IR 5 MG TABLET PO PRN ×3 (02:36→21:13)
[2019-10-30] MEDS: BUSPIRONE HCL 10 MG TABLET PO SCH ×3 (05:30→21:14)
[2019-10-30] MEDS: PANTOPRAZOLE SODIUM 40 MG TABLET.DR PO SCH (05:30)
[2019-10-30] MEDS: INSULIN REG, HUMAN 100 UNIT/ML 3 ML VIAL (PYX) SUBCUT SCH ×4 (07:25→21:21)
[2019-10-30] MEDS: ACETAMINOPHEN 325 MG TABLET PO SCH (07:33)
[2019-10-30] MEDS: METOCLOPRAMIDE HCL 10 MG TABLET PO SCH ×4 (07:33→21:13)
[2019-10-30] MEDS: INSULIN NPH (ISOPHANE), HUMAN 100 UNIT/ML 3 ML SUBCUT SCH ×2 (07:35→16:57)
[2019-10-30] MEDS ORDERED: MAGNESIUM SULFATE INJ 8 MEQ/2 ML IV ONE (07:45)
[2019-10-30] MEDS ORDERED: MAGNESIUM SULFATE/D5W 1 GM/100 ML RTUPB IV ONE (09:00)
[2019-10-30] MEDS: DOCUSATE SODIUM 100 MG CAPSULE PO SCH ×2 (09:35→18:09)
[2019-10-30] MEDS: MAGNESIUM OXIDE 400 MG TABLET PO SCH (09:35)
[2019-10-30] MEDS: CARVEDILOL 3.125 MG TABLET PO SCH ×2 (09:35→21:13)
[2019-10-30] MEDS: ASPIRIN 81 MG TABLET, ENT COATED PO SCH (09:36)
[2019-10-30] MEDS: FERROUS SULFATE 325 MG TABLET PO SCH (09:36)
[2019-10-30] MEDS: CITALOPRAM HYDROBROMIDE 20 MG TABLET PO SCH (09:36)
[2019-10-30] MEDS: FENOFIBRATE NANOCRYSTALLIZED 145 MG TABLET PO SCH (09:36)
[2019-10-30] MEDS: BUMETANIDE INJ/PF 1 MG/4 ML SDV IV SCH ×2 (09:36→21:14)
[2019-10-30] MEDS: DIPHENHYDRAMINE HCL 25 MG CAPSULE PO PRN ×2 (09:59→23:10)
[2019-10-30] MEDS: COLLAGENASE CLOSTRIDIUM HIST. OINT 30 GM TP SCH (10:32)
[2019-10-30 10:33] LABS: ANION GAP 6 (5-19); BLOOD UREA NITROGEN 29 mg/dL (7-20); CARBON DIOXIDE 34 mmol/L (22-30); CHLORIDE 99 mmol/L (98-107); GLUCOSE 163 mg/dL (75-110); POTASSIUM 3.8 mmol/L (3.6-5.0)
--- NOTE | 2019-10-30 11:17 | PDOC PROGRESS REPORT ---
Subjective Progress Note for:: 10/30/19 Subjective:: Feels better. Denies chest pain or dyspnea. Jens wrap on left lower extremity. Hypomagnesemia being corrected intravenously. Reason For Visit: ACUTE ON CHRONIC KIDNEY INJURY,ANASARCA,CORONARY Physical Exam Vital Signs: Temp Pulse Resp BP Pulse Ox 98.3 F 79 18 114/62 95 10/30/19 08:22 10/30/19 08:22 10/30/19 08:22 10/30/19 08:22 10/30/19 08:22 Intake & Output 10/29/19 10/30/19 10/31/19 06:59 06:59 06:59 Intake Total 2332 1050 Output Total 2100 4375 Balance 232 -3325 Weight 96.5 kg 94.1 kg General appearance: PRESENT: no acute distress, cooperative, well-developed, well-nourished Head exam: PRESENT: atraumatic, normocephalic Eye exam: PRESENT: EOMI Mouth exam: PRESENT: moist Neck exam: PRESENT: JVD Respiratory exam: PRESENT: clear to auscultation amaya, symmetrical, unlabored Cardiovascular exam: PRESENT: RRR, +S1, +S2 Pulses: PRESENT: normal radial pulses GI/Abdominal exam: PRESENT: soft Rectal exam: PRESENT: deferred Musculoskeletal exam: PRESENT: deformity Neurological exam: PRESENT: alert, awake, oriented to person, oriented to place, oriented to time, oriented to situation Psychiatric exam: PRESENT: appropriate affect Skin exam: PRESENT: dry, normal color Results Laboratory Results: 10/24/19 17:05 10/30/19 09:58 10/30/19 09:58 Sodium 139.2 Potassium 3.8 Chloride 99 Carbon Dioxide 34 H Anion Gap 6 BUN 29 H Creatinine 1.22 Est GFR ( Amer) 56 L Glucose 163 H Calcium 9.0 10/24/19 20:08 Blood Blood Culture - Final NO GROWTH IN 5 DAYS 10/24/19 17:05 Blood Blood Culture - Final NO GROWTH IN 5 DAYS 10/24/19 10/24/19 10/27/19 17:05 17:05 05:24 Creatine Kinase 78 NT-Pro-B Natriuret Pep 61604 H 18446 H Impressions: Chest X-Ray 10/24/19 17:28 IMPRESSION: 1. Low lung volumes. NO ACUTE RADIOGRAPHIC FINDING IN THE CHEST. 2. Cardiomegaly. No evidence for failure. Assessment & Plan - Diagnosis (1) Acute exacerbation of CHF (congestive heart failure) Qualifiers: Heart failure type: unspecified Qualified Code(s): I50.9 - Heart failure, unspecified Is this a current diagnosis for this admission?: Yes Plan: Continue to watch fluid intake. Has had favorable clinical response to IV Bumetanide and Albumin Edema and Lung exam have improved. LVEF mildly reduced on most recent out patient Echo ~45% Emphasis on fluid restriction. At home patient was imbibing significant amounts of fluid. This was reiterated during our discussion today. Also have to watch for salt intake. Patient may be noncompliant (2) Hypertension Qualifiers: Hypertension type: essential hypertension Qualified Code(s): I10 - Essential (primary) hypertension Is this a current diagnosis for this admission?: Yes Plan: We will watch blood pressure as we continue to diurese (3) Medical non-compliance Is this a current diagnosis for this admission?: Yes Plan: I suspect noncompliance playing a significant role in acute decompensated congestive heart failure. Patient was imbibing significant amounts of fluid at home. This was (4) Supratherapeutic INR Is this a current diagnosis for this admission?: Yes Plan: INR is still elevated Warfarin is on hold Indicated for PAF - Notes Notes: I feel that the patient has improved. Heart failure symptoms are much better. But still would continue diuretics. Renal function appears to be stable. INR is presently in therapeutic range and hopefully we can start warfarin at the time of discharge. If continues to do better and volume status and respiratory status are stable anticipate that she can be discharged in stable condition. I can arrange for follow-up as an outpatient. This was discussed with the patient. I emphasized adherence to strict fluid and salt intake protocol to minimize chances of acute decompensation of heart failure. Hypomagnesemia is being corrected.
--- NOTE | 2019-10-30 14:28 | PDOC PROGRESS REPORT ---
Subjective Progress Note for:: 10/30/19 Subjective:: Still having very good urine output and creatinine is approaching baseline. Legs are less tense and abdomen is improved to a lesser degree. Overall doing quite well with diuresis. Suspect she will need an equivalent dose of Bumex orally when she leaves. She is also doing better with her limiting fluid intake. Magnesium is low and we will be repeating this today. I suspect she will be ready for discharge in the next 48 hours. She has no new complaints other than the edema and blisters on her legs which seem to be slightly improving each day. Reason For Visit: ACUTE ON CHRONIC KIDNEY INJURY,ANASARCA,CORONARY Physical Exam Vital Signs: Temp Pulse Resp BP Pulse Ox 97.8 F 78 16 125/70 100 10/30/19 11:00 10/30/19 11:00 10/30/19 11:00 10/30/19 11:00 10/30/19 11:00 Intake & Output 10/29/19 10/30/19 10/31/19 06:59 06:59 06:59 Intake Total 2332 1050 Output Total 2100 4375 Balance 232 -3325 Weight 96.5 kg 94.1 kg General appearance: PRESENT: no acute distress, well-developed, well-nourished Eye exam: PRESENT: conjunctiva pink Mouth exam: PRESENT: moist Respiratory exam: PRESENT: clear to auscultation amaya. ABSENT: rales, rhonchi, wheezes Cardiovascular exam: PRESENT: RRR. ABSENT: diastolic murmur, rubs, systolic murmur GI/Abdominal exam: PRESENT: normal bowel sounds, soft, other - Abdominal wall interstitial edema, pitting. ABSENT: distended, guarding, mass, organolmegaly, rebound, tenderness Rectal exam: PRESENT: deferred Extremities exam: PRESENT: pedal edema, +2 edema - Slightly improved Neurological exam: PRESENT: alert, awake, oriented to person, oriented to place, oriented to time, oriented to situation Psychiatric exam: PRESENT: appropriate affect, normal mood Skin exam: PRESENT: dry, intact, warm Results Laboratory Results: 10/24/19 17:05 10/30/19 09:58 10/30/19 09:58 Sodium 139.2 Potassium 3.8 Chloride 99 Carbon Dioxide 34 H Anion Gap 6 BUN 29 H Creatinine 1.22 Est GFR ( Amer) 56 L Glucose 163 H Calcium 9.0 04/03/20 20:08 Blood Blood Culture - Final NO GROWTH IN 5 DAYS 10/24/19 17:05 Blood Blood Culture - Final NO GROWTH IN 5 DAYS 10/24/19 10/24/19 10/27/19 17:05 17:05 05:24 Creatine Kinase 78 NT-Pro-B Natriuret Pep 39789 H 39035 H Impressions: Chest X-Ray 10/24/19 17:28 IMPRESSION: 1. Low lung volumes. NO ACUTE RADIOGRAPHIC FINDING IN THE CHEST. 2. Cardiomegaly. No evidence for failure. 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 The patient has cardiomegaly with left ventricular hypertrophy. There is mild to moderate tricuspid regurgitation with mild pulmonary hypertension. -Increased diuresis -Continue home medications -Will monitor intake and output closely. -Increased dose of Bumex 2 mg IV twice daily, continued as this dose seems to be quite effective Fluid restriction to 1500 mL/day; patient likely has excessive fluid intake throughout the day, discussed with nursing and patient to limit fluid intake Cardiology consulted, actively following Continued on higher dose Bumex which can be converted to oral equivalent at discharge Good urine output overall, plan to discharge on oral equivalent dose of Bumex she is getting here (2) Acute kidney injury superimposed on chronic kidney disease Is this a current diagnosis for this admission?: Yes Plan: Highly suspect cardiorenal syndrome as the source -Diurese -Makes urine; given intravenous Bumex -Trend BMP, creatinine coming down with diuresis Nephrology consulted; patient has needed short-term dialysis sessions in the past Albumin 25 g IV ordered Significant gradual improvement; approaching baseline creatinine (3) Cardiorenal syndrome Is this a current diagnosis for this admission?: Yes (4) Anasarca associated with disorder of kidney Is this a current diagnosis for this admission?: Yes (5) Chronic ulcer of left foot limited to breakdown of skin Is this a current diagnosis for this admission?: Yes (6) Hyperglycemia due to type 2 diabetes mellitus Qualifiers: Diabetes mellitus termite exterminator helper insulin use: with intermediate use Qualified Code(s): E11.65 - Type 2 diabetes mellitus with hyperglycemia; 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.4 - 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 (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 of insulin Is this a current diagnosis for this admission?: Yes (7) Longstanding persistent atrial fibrillation Is this a current diagnosis for this admission?: Yes (8) COPD (chronic obstructive pulmonary disease) Qualifiers: COPD type: unspecified COPD Qualified Code(s): J44.9 - Chronic obstructive pulmonary disease, unspecified Is this a current diagnosis for this admission?: Yes (9) Diabetes mellitus type 2 in obese Is this a current diagnosis for this admission?: Yes (10) Peripheral vascular disease in diabetes mellitus Is this a current diagnosis for this admission?: Yes (11) Supratherapeutic INR Is this a current diagnosis for this admission?: Yes - Time Time Spent with patient: 25-34 minutes Medications reviewed and adjusted accordingly: Yes Anticipated discharge: Home Within: within 48 hours - Inpatient Certification Based on my medical assessment, after consideration of the patient's comorbidities, presenting symptoms, or acuity I expect that the services needed warrant INPATIENT care.: Yes I certify that my determination is in accordance with my understanding of Medicare's requirements for reasonable and necessary INPATIENT services [42 CFR 412.3e].: Yes Medical Necessity: Significant Comorbidiites Make Outpatient Treatment Too Risky, Need Close Monitoring Due to Risk of Patient Decompensation
[2019-10-30] MEDS: ATORVASTATIN CALCIUM 80 MG TABLET PO SCH (21:13)
[2019-10-30] MEDS: TRAZODONE HCL 50 MG TABLET PO SCH (21:14)
[2019-10-31] MEDS: PANTOPRAZOLE SODIUM 40 MG TABLET.DR PO SCH (05:19)
[2019-10-31] MEDS: BUSPIRONE HCL 10 MG TABLET PO SCH ×3 (05:19→21:58)
[2019-10-31] MEDS: ONDANSETRON HCL INJ/PF 4 MG/2 ML SDV IV PRN ×3 (05:19→19:50)
[2019-10-31] MEDS: OXYCODONE HCL IR 5 MG TABLET PO PRN ×2 (07:38→17:21)
[2019-10-31] MEDS: INSULIN REG, HUMAN 100 UNIT/ML 3 ML VIAL (PYX) SUBCUT SCH ×4 (07:49→21:59)
[2019-10-31] MEDS: INSULIN NPH (ISOPHANE), HUMAN 100 UNIT/ML 3 ML SUBCUT SCH ×2 (07:49→16:28)
[2019-10-31] MEDS: METOCLOPRAMIDE HCL 10 MG TABLET PO SCH ×4 (08:32→21:57)
[2019-10-31] MEDS: ACETAMINOPHEN 325 MG TABLET PO SCH (08:32)
[2019-10-31] MEDS: FENOFIBRATE NANOCRYSTALLIZED 145 MG TABLET PO SCH (09:14)
[2019-10-31] MEDS: CITALOPRAM HYDROBROMIDE 20 MG TABLET PO SCH (09:14)
[2019-10-31] MEDS: MAGNESIUM OXIDE 400 MG TABLET PO SCH (09:14)
[2019-10-31] MEDS: CARVEDILOL 3.125 MG TABLET PO SCH ×2 (09:14→21:58)
[2019-10-31] MEDS: DOCUSATE SODIUM 100 MG CAPSULE PO SCH ×2 (09:14→17:04)
[2019-10-31] MEDS: FERROUS SULFATE 325 MG TABLET PO SCH (09:14)
[2019-10-31] MEDS: COLLAGENASE CLOSTRIDIUM HIST. OINT 30 GM TP SCH (09:14)
[2019-10-31] MEDS: ASPIRIN 81 MG TABLET, ENT COATED PO SCH (09:14)
[2019-10-31] MEDS: BUMETANIDE INJ/PF 1 MG/4 ML SDV IV SCH ×2 (09:15→21:58)
[2019-10-31 10:41] LABS: ANION GAP 7 (5-19); BLOOD UREA NITROGEN 27 mg/dL (7-20); CALCIUM 9.1 mg/dL (8.4-10.2); CARBON DIOXIDE 30 mmol/L (22-30); CHLORIDE 100 mmol/L (98-107); GLUCOSE 183 mg/dL (75-110); POTASSIUM 3.9 mmol/L (3.6-5.0)
--- NOTE | 2019-10-31 15:56 | PDOC PROGRESS REPORT ---
Subjective Progress Note for:: 10/31/19 Subjective:: Physical exam today finally reflects some real noticeable improvement in her lower extremity and abdominal edema. Over the last 24 hours is documented that she urinated out approximately 7 L. Creatinine approximately back to baseline today. I discussed the case with the clinical psychology professor who agreed that their services are not needed today given patient's renal failure has fully recovered. I believe 1 additional day of IV Bumex will give her the forward momentum to go home tomorrow on oral Bumex. Patient has no new complaints and seems to be doing better today than previous days. Reason For Visit: ACUTE ON CHRONIC KIDNEY INJURY,ANASARCA,CORONARY Physical Exam Vital Signs: Temp Pulse Resp BP Pulse Ox 97.6 F 82 16 128/87 H 95 10/31/19 12:00 10/31/19 12:00 10/31/19 12:00 10/31/19 12:00 10/31/19 12:00 Intake & Output 10/30/19 10/31/19 11/01/19 06:59 06:59 06:59 Intake Total 1050 560 520 Output Total 4375 2600 200 Balance -3325 -2040 320 Weight 94.1 kg 92.5 kg General appearance: PRESENT: no acute distress, well-developed, well-nourished Head exam: PRESENT: atraumatic, normocephalic Eye exam: PRESENT: conjunctiva pink Mouth exam: PRESENT: moist Respiratory exam: PRESENT: clear to auscultation amaya. ABSENT: rales, rhonchi, wheezes Cardiovascular exam: PRESENT: RRR. ABSENT: diastolic murmur, rubs, systolic murmur GI/Abdominal exam: PRESENT: normal bowel sounds, soft, other - Diffuse abdominal wall edema less today. ABSENT: distended, guarding, mass, organolmegaly, rebound, tenderness Extremities exam: PRESENT: pedal edema, +2 edema - Legs are certainly less taut today with edema, improved Neurological exam: PRESENT: alert, awake Psychiatric exam: PRESENT: appropriate affect, normal mood Skin exam: PRESENT: dry, intact, warm Results Laboratory Results: 10/24/19 17:05 10/31/19 09:49 10/31/19 09:49 Sodium 137.3 Potassium 3.9 Chloride 100 Carbon Dioxide 30 Anion Gap 7 BUN 27 H Creatinine 1.13 Est GFR ( Amer) > 60 Glucose 183 H Calcium 9.1 10/24/19 10/24/19 10/27/19 17:05 17:05 05:24 Creatine Kinase 78 NT-Pro-B Natriuret Pep 45053 H 40004 H Impressions: Chest X-Ray 10/24/19 17:28 IMPRESSION: 1. Low lung volumes. NO ACUTE RADIOGRAPHIC FINDING IN THE CHEST. 2. Cardiomegaly. No evidence for failure. 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 The patient has cardiomegaly with left ventricular hyper trophy. There is mild to moderate tricuspid regurgitation with mild pulmonary hypertension. -Increased diuresis -Continue home medications -Will monitor intake and output closely. -Increased dose of Bumex 2 mg IV twice daily, continued as this dose seems to be quite effective Fluid restriction to 1500 mL/day; patient likely has excessive fluid intake throughout the day, discussed with nursing and patient to limit fluid intake Cardiology consulted, actively following Continued on higher dose Bumex which can be converted to oral equivalent at discharge Good urine output overall, plan to discharge on oral equivalent dose of Bumex she is getting here Excellent urine output has resulted in overall significant improvement in BLE and abdominal wall edema; discussed with patient she must limit her fluid intake at home and take all her medications as prescribed or she may see a relapse of her severe edema (2) Acute kidney injury superimposed on chronic kidney disease Is this a current diagnosis for this admission?: Yes (3) Cardiorenal syndrome Is this a current diagnosis for this admission?: Yes (4) Anasarca associated with disorder of kidney Is this a current diagnosis for this admission?: Yes (5) Chronic ulcer of left foot limited to breakdown of skin Is this a current diagnosis for this admission?: Yes (6) Hyperglycemia due to type 2 diabetes mellitus Qualifiers: Diabetes mellitus head chopper insulin use: with head chopper use Qualified Code(s): E11.65 - Type 2 diabetes mellitus with hyperglycemia; Z79.4 - support staff (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 of insulin Is this a current diagnosis for this admission?: Yes (7) Longstanding persistent atrial fibrillation Is this a current diagnosis for this admission?: Yes (8) COPD (chronic obstructive pulmonary disease) Qualifiers: COPD type: unspecified COPD Qualified Code(s): J44.9 - Chronic obstructive pulmonary disease, unspecified Is this a current diagnosis for this admission?: Yes (9) Diabetes mellitus type 2 in obese Is this a current diagnosis for this admission?: Yes (10) Peripheral vascular disease in diabetes mellitus Is this a current diagnosis for this admission?: Yes (11) Supratherapeutic INR Is this a current diagnosis for this admission?: Yes - Time Time Spent with patient: 25-34 minutes Medications reviewed and adjusted accordingly: Yes Anticipated discharge: Home Within: within 24 hours - Inpatient Certification Based on my medical assessment, after consideration of the patient's comorbidities, presenting symptoms, or acuity I expect that the services needed warrant INPATIENT care.: Yes I certify that my determination is in accordance with my understanding of Medicare's requirements for reasonable and necessary INPATIENT services [42 CFR 412.3e].: Yes Medical Necessity: Significant Comorbidiites Make Outpatient Treatment Too Risky, Need Close Monitoring Due to Risk of Patient Decompensation
[2019-10-31] MEDS: NYSTATIN TOPICAL POWDER 15 GM TP SCH (18:47)
[2019-10-31] MEDS: ATORVASTATIN CALCIUM 80 MG TABLET PO SCH (21:57)
[2019-10-31] MEDS: TRAZODONE HCL 50 MG TABLET PO SCH (21:58)
[2019-11-01] MEDS: ONDANSETRON HCL INJ/PF 4 MG/2 ML SDV IV PRN ×3 (00:55→10:08)
[2019-11-01] MEDS ORDERED: OXYCODONE HCL IR 5 MG TABLET PO ONE (03:45)
[2019-11-01] MEDS: PANTOPRAZOLE SODIUM 40 MG TABLET.DR PO SCH (05:30)
[2019-11-01] MEDS: BUSPIRONE HCL 10 MG TABLET PO SCH (05:30)
[2019-11-01] MEDS: DIPHENHYDRAMINE HCL 25 MG CAPSULE PO PRN (06:51)
[2019-11-01] MEDS: INSULIN REG, HUMAN 100 UNIT/ML 3 ML VIAL (PYX) SUBCUT SCH ×2 (07:22→12:05)
[2019-11-01] MEDS: ACETAMINOPHEN 325 MG TABLET PO SCH (07:52)
[2019-11-01] MEDS: INSULIN NPH (ISOPHANE), HUMAN 100 UNIT/ML 3 ML SUBCUT SCH (07:53)
[2019-11-01] MEDS: METOCLOPRAMIDE HCL 10 MG TABLET PO SCH ×2 (07:53→12:05)
[2019-11-01] MEDS: CARVEDILOL 3.125 MG TABLET PO SCH (09:24)
[2019-11-01] MEDS: CITALOPRAM HYDROBROMIDE 20 MG TABLET PO SCH (09:24)
[2019-11-01] MEDS: FENOFIBRATE NANOCRYSTALLIZED 145 MG TABLET PO SCH (09:24)
[2019-11-01] MEDS: FERROUS SULFATE 325 MG TABLET PO SCH (09:24)
[2019-11-01] MEDS: ASPIRIN 81 MG TABLET, ENT COATED PO SCH (09:24)
[2019-11-01] MEDS: DOCUSATE SODIUM 100 MG CAPSULE PO SCH (09:24)
[2019-11-01] MEDS: MAGNESIUM OXIDE 400 MG TABLET PO SCH (09:24)
[2019-11-01] MEDS: COLLAGENASE CLOSTRIDIUM HIST. OINT 30 GM TP SCH (09:25)
[2019-11-01] MEDS: NYSTATIN TOPICAL POWDER 15 GM TP SCH (09:25)
[2019-11-01] MEDS ORDERED: BUMETANIDE 1 MG TABLET PO SCH (10:00)
--- NOTE | 2019-11-01 11:32 | PDOC DISCHARGE SUMMARY ---
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 Is this a current diagnosis for this admission?: Yes (2) Anasarca associated with disorder of kidney Is this a current diagnosis for this admission?: Yes (3) Cardiorenal syndrome Is this a current diagnosis for this admission?: Yes (4) Chronic ulcer of left foot limited to breakdown of skin Is this a current diagnosis for this admission?: Yes (5) Hyperglycemia due to type 2 diabetes mellitus Is this a current diagnosis for this admission?: Yes (6) Longstanding persistent atrial fibrillation Is this a current diagnosis for this admission?: Yes (7) Acute kidney injury superimposed on chronic kidney disease Is this a current diagnosis for this admission?: Yes (8) COPD (chronic obstructive pulmonary disease) Is this a current diagnosis for this admission?: Yes (9) Peripheral vascular disease in diabetes mellitus Is this a current diagnosis for this admission?: Yes (10) Supratherapeutic INR Is this a current diagnosis for this admission?: Yes - Additional Information Resuscitation Status: Full Code Discharge Diet: Cardiac, Diabetic Discharge Activity: Activity As Tolerated, Balance Activity w/Rest, Weigh Daily Referrals: ENRIQUE MURPHY MD [ACTIVE STAFF] - THERESE NEUMANN DO [Primary Care Provider] - Prescriptions: Bumetanide [Bumex 1 mg Tablet] 2 mg PO BID 30 Days tablet Apixaban [Eliquis 5 mg Tablet] 5 mg PO BID 30 Days tablet Magnesium Oxide [Mag-Ox 400 mg Tablet] 400 mg PO DAILY #30 tablet Collagenase Clostridium Hist. [Santyl Ointment 30 gm] 1 applic TP DAILY 15 Days tube Home Medications: Acetaminophen [Tylenol Extra Strength 500 mg Tablet] 1,000 mg PO Q8HP PRN 07/02/19 Aspirin [Adult Low Dose Aspirin EC] 81 mg PO DAILY 07/02/19 Buspirone HCl [Buspar 15 mg Tablet] 7.5 mg PO Q12 07/02/19 Carvedilol [Coreg 3.125 mg Tablet] 3.125 mg PO Q12 07/02/19 Citalopram Hydrobromide [Celexa 40 mg Tablet] 40 mg PO DAILY 07/02/19 Fenofibrate Nanocrystallized [Tricor 145 mg Tablet] 145 mg PO DAILY 07/02/19 Lisinopril [Prinivil 5 mg Tablet] 5 mg PO DAILY 07/02/19 Metformin HCl [Glucophage] 1,000 mg PO QPM 07/02/19 Metoclopramide HCl [Reglan 10 mg Tablet] 10 mg PO ACHS 07/02/19 Oxycodone HCl [Oxy-Ir 5 mg Tablet] 10 mg PO Q8HP PRN 07/02/19 Pantoprazole Sodium [Protonix [address] Tablet] 40 mg PO DAILY 07/02/19 Trazodone HCl [Desyrel 50 mg Tablet] 50 mg PO HSP PRN 07/02/19 Atorvastatin Calcium [Lipitor 80 mg Tablet] 80 mg PO QHS tablet 07/04/19 Diphenhydramine HCl [Benadryl] 50 mg PO DAILYP PRN 09/30/19 Ferrous Sulfate [Feosol 325 mg Tablet] 325 mg PO DAILY 30 Days #30 tablet 10/09/19 Hum Insulin NPH/Reg Insulin Hm [Insulin 70-30 (NPH/Reg) 100 unit/mL] 5 unit SUBCUT BIDACBS 30 Days #1 unit 10/09/19 Gabapentin [Neurontin 300 mg Capsule] 600 mg PO QID 10/24/19 Metformin HCl 500 mg PO QAM 10/24/19 Nitroglycerin [Nitrostat 0.4 mg (1/150 Gr) Tabs 25/Bottle] 1 tab SL Q5MP PRN 10/24/19 Polyethylene Glycol 3350 [Miralax Powder 17 gm/Packet] 1 packet PO DAILYP PRN 10/24/19 Apixaban [Eliquis 5 mg Tablet] 5 mg PO BID 30 Days tablet 11/01/19 Bumetanide [Bumex 1 mg Tablet] 2 mg PO BID 30 Days tablet 11/01/19 Collagenase Clostridium Hist. [Santyl Ointment 30 gm] 1 applic TP DAILY 15 Days tube 11/01/19 Magnesium Oxide [Mag-Ox 400 mg Tablet] 400 mg PO DAILY #30 tablet 11/01/19 History of Present Illiness History of Present Illness: HELDER SERNA is a 49 year old female with multiple admissions to the hospital in the past. The most recent one was 2 weeks ago. She states that since then she visited with her primary care provider. Her furosemide dose was increased from 40 mg daily to 40 mg twice daily. She was placed on iron and there was one other medication change that she cannot remember. She saw her injection molding machine setter several days ago. Her INR was 10 and she has been holding her warfarin. She re ports that her urine output has been decreasing and her abdominal girth has increased significantly. She has several spots of weeping fluid on the abdomen as well as multiple spots on the left foot. She has a right below-knee amputation. She has had multiple cardiac surgeries, myocardial infarction and needed dialysis during her last admission. Her serum creatinine was 1.05 on October 08, 1.42 on October 16 and 2.49 today. As the patient is making urine we will admit the patient with attempts to stabilize her through the weekend. She will get frequent small doses of diuretic. I would likely use Bumex through the weekend until nephrology is available. She does have orthopnea but breathes comfortably sitting up. She denies any chest pain or pressure, palpitations, lightheadedness or dizziness. I will place her on telemetry and she will be on the hospitalist service. Hospital Course Hospital Course: Patient was admitted to the hospital for treatment of acute on chronic combined systolic and diastolic heart failure. She was also noted to have significant anasarca on presentation. Patient's anasarca is likely related to her congestive heart failure as well as her DANNI superimposed on chronic kidney disease. Patient admitted taking Lasix 80 mg at home. She was diuresed effectively in the hospital with Bumex 2 mg IV twice a day with significant urine output and resolution of her cardiorenal syndrome. DANNI has resolved and creatinine seems to be back at baseline. Patient's anasarca has also significantly improved. Patient is doing well and maintaining good saturation on room air. Patient would like to go home today and will be discharged on Bumex 2 mg p.o. twice a day and has been instructed to discontinue her Lasix. She will also be given magnesium supplements for hypomagnesemia noted on blood work. On admission, patient was noted to have supratherapeutic INR of 7.57. Patient states that she takes warfarin 2.5 mg at home but had not been taking her broccoli some greens which she usually took. However it is strange for such a small dose of warfarin to have caused such elevated INR. Patient was on warfarin for atrial fibrillation given her very high chads vasc score. It may be unsafe for patient to continue to be on warfarin and as such I have discussed with patient's injection molding machine setter, Dr. Murphy and we have decided to switch patient to Eliquis. Patient did receive vitamin K during admission for correction of INR. Last INR on 10/29/2019 was 2.6. I have given written patient a prescription for Eliquis and our cyber ops planner has also provided patient with a 1 month free supply. Patient is safe and stable for discharge at this time and will be following up with her primary care provider and her injection molding machine setter for further management and repeat blood work within 1 to 2 weeks. Physical Exam Vital Signs: Temp Pulse Resp BP Pulse Ox 98.2 F 78 16 137/78 H 100 11/01/19 08:00 11/01/19 08:00 11/01/19 08:00 11/01/19 08:00 11/01/19 08:00 Intake & Output 10/31/19 11/01/19 11/02/19 06:59 06:59 06:59 Intake Total 560 1330 Output Total 2600 840 Balance -2040 490 Weight 92.5 kg 91.9 kg General appearance: PRESENT: no acute distress, cooperative Neck exam: ABSENT: JVD Respiratory exam: PRESENT: symmetrical, unlabored. ABSENT: accessory muscle use, retraction GI/Abdominal exam: PRESENT: soft. ABSENT: rebound, rigid, tenderness Extremities exam: PRESENT: other - right LE amputation Neurological exam: PRESENT: alert, awake, oriented to person, oriented to place, oriented to time Results Laboratory Results: WBC 5.9 10^3/uL (4.0-10.5) 10/24/19 17:05 RBC 3.98 10^6/uL (3.72-5.28) 10/24/19 17:05 Hgb 9.9 g/dL (12.0-15.5) L 10/24/19 17:05 Hct 32.2 % (36.0-47.0) L 10/24/19 17:05 MCV 81 fl (80-97) 10/24/19 17:05 MCH 24.9 pg (27.0-33.4) L 10/24/19 17:05 MCHC 30.8 g/dL (32.0-36.0) L 10/24/19 17:05 RDW 20.4 % (11.5-14.0) H 10/24/19 17:05 Plt Count 289 10^3/uL (150-450) 10/24/19 17:05 Lymph % (Auto) 12.1 % (13-45) L 10/24/19 17:05 Elbert % (Auto) 6.7 % (3-13) 10/24/19 17:05 Eos % (Auto) 2.1 % (0-6) 10/24/19 17:05 Baso % (Auto) 1.0 % (0-2) 10/24/19 17:05 Absolute Neuts (auto) 4.6 10^3/uL (1.7-8.2) 10/24/19 17:05 Absolute Lymphs (auto) 0.7 10^3/uL (0.5-4.7) 10/24/19 17:05 Absolute Monos (auto) 0.4 10^3/uL (0.1-1.4) 10/24/19 17:05 Absolute Eos (auto) 0.1 10^3/uL (0.0-0.6) 10/24/19 17:05 Absolute Basos (auto) 0.1 10^3/uL (0.0-0.2) 10/24/19 17:05 Seg Neutrophils % 78.1 % (42-78) H 10/24/19 17:05 PT 28.3 SEC (11.4-15.4) H 10/29/19 09:45 INR 2.60 10/29/19 09:45 INR (Anticoag Therapy) DRAMATIC READER 10/24/19 17:05 Carbonic Acid 1.15 mmol/L (1.05-1.35) 10/24/19 17:25 HCO3/H2CO3 Ratio 19:1 10/24/19 17:25 ABG pH 7.39 (7.35-7.45) 10/24/19 17:25 ABG pCO2 38.1 mmHg (35-45) 10/24/19 17:25 ABG pO2 66.0 mmHg (80-100) L 10/24/19 17:25 ABG HCO3 22.3 mmol/L (20-24) 10/24/19 17:25 ABG Total CO2 23.5 mmol/L (21-25) 10/24/19 17:25 ABG O2 Saturation 92.9 % (94-98) L 10/24/19 17:25 ABG Base Excess -2.4 mmol/L 10/24/19 17:25 FiO2 ROOM AIR 10/24/19 17:25 Sodium 137.3 mmol/L (137-145) 10/31/19 09:49 Potassium 3.9 mmol/L (3.6-5.0) 10/31/19 09:49 Chloride 100 mmol/L (98-107) 10/31/19 09:49 Carbon Dioxide 30 mmol/L (22-30) 10/31/19 09:49 Anion Gap 7 (5-19) 10/31/19 09:49 BUN 27 mg/dL (7-20) H 10/31/19 09:49 Creatinine 1.13 mg/dL (0.52-1.25) 10/31/19 09:49 Est GFR ( Amer) > 60 (>60) 10/31/19 09:49 Est GFR (MDRD) Non-Af 51 (>60) L 10/31/19 09:49 Glucose 183 mg/dL (75-110) H 10/31/19 09:49 POC Glucose 169 mg/dL (70-110) H 11/01/19 11:15 Calcium 9.1 mg/dL (8.4-10.2) 10/31/19 09:49 Phosphorus 4.2 mg/dL (2.5-4.5) 10/27/19 05:24 Magnesium 1.5 mg/dL (1.6-2.3) L 10/29/19 09:54 Total Bilirubin 0.5 mg/dL (0.2-1.3) 10/24/19 17:05 Direct Bilirubin 0.2 mg/dL (0.0-0.4) 10/24/19 17:05 Neonat Total Bilirubin Not Reportable 10/24/19 17:05 Neonat Direct Bilirubin Not Reportable 10/24/19 17:05 Neonat Indirect Bili Not Reportable 10/24/19 17:05 AST 18 U/L (14-36) 10/24/19 17:05 ALT 9 U/L (<35) 10/24/19 17:05 Alkaline Phosphatase 66 U/L (38-126) 10/24/19 17:05 Creatine Kinase 78 U/L (30-135) 10/24/19 17:05 NT-Pro-B Natriuret Pep 76488 pg/mL (<125) H 10/27/19 05:24 Total Protein 6.6 g/dL (6.3-8.2) 10/24/19 17:05 Albumin 3.8 g/dL (3.5-5.0) 10/27/19 05:24 Lipase 67.2 U/L (23-300) 10/24/19 17:05 Urine Color YELLOW 10/25/19 10:40 Urine Appearance SLIGHTLY-CLOUDY 10/25/19 10:40 Urine pH 5.0 (5.0-9.0) 10/25/19 10:40 Ur Specific [place] 1.014 10/25/19 10:40 Urine Protein 100 mg/dL (NEGATIVE) H 10/25/19 10:40 Urine Glucose (UA) NEGATIVE mg/dL (NEGATIVE) 10/25/19 10:40 Urine Ketones NEGATIVE mg/dL (NEGATIVE) 10/25/19 10:40 Urine Blood LARGE (NEGATIVE) H 10/25/19 10:40 Urine Nitrite (Reflex) NEGATIVE (NEGATIVE) 10/25/19 10:40 Urine Bilirubin NEGATIVE (NEGATIVE) 10/25/19 10:40 Urine Urobilinogen NEGATIVE mg/dL (<2.0) 10/25/19 10:40 Leukocyte Esterase Rfl NEGATIVE (NEGATIVE) 10/25/19 10:40 Urine RBC (Auto) 126 /HPF 10/25/19 10:40 Urine WBC (Reflex) 3 /HPF 10/25/19 10:40 Squamous Epi Cells Auto <1 /HPF 10/25/19 10:40 Urine Mucus (Auto) RARE /LPF 10/25/19 10:40 Urine Ascorbic Acid NEGATIVE (NEGATIVE) 10/25/19 10:40 10/24/19 10/27/19 17:05 05:24 NT-Pro-B Natriuret Pep 33574 H 47108 H Impressions: Chest X-Ray 10/24/19 17:28 IMPRESSION: 1. Low lung volumes. NO ACUTE RADIOGRAPHIC FINDING IN THE CHEST. 2. Cardiomegaly. No evidence for failure. Plan Time Spent: Greater than 30 Minutes Stroke Is this a Stroke Patient?: No Acute Heart Failure - Is this a Heart Failure Patient?: Yes Documentation of LVEF assessment?: Yes LVEF < 40%?: No- if no continue to question #3 3. Anticoagulant therapy for permanect/persistent/paraoxysmal Afib or Aflutter: Yes
[2019-11-01 11:43] VITALS: BP 128/89
[2019-11-01] MEDS: ACETAMINOPHEN 325 MG TABLET PO PRN (12:07)
== END 2019-11-01 12:34 | disposition home or self-care (01) | DRG 291 ==
LOC: ER 16:27 → EH 18:24 → 4S 19:32
PROVIDERS: ADMIT Hospitalist; ATTEND Internal Medicine
DX: I13.0 Hypertensive heart and chronic kidney disease with heart failure and stage 1 through stage 4 chronic kidney disease, or unspecified chronic kidney disease (principal); I50.43 Acute on chronic combined systolic (congestive) and diastolic (congestive) heart failure; N17.9 Acute kidney failure, unspecified; L97.921 Non-pressure chronic ulcer of unspecified part of left lower leg limited to breakdown of skin; E87.1 Hypo-osmolality and hyponatremia; I48.11 Longstanding persistent atrial fibrillation; N18.9 Chronic kidney disease, unspecified; I25.10 Atherosclerotic heart disease of native coronary artery without angina pectoris; E11.22 Type 2 diabetes mellitus with diabetic chronic kidney disease; E11.65 Type 2 diabetes mellitus with hyperglycemia; J44.9 Chronic obstructive pulmonary disease, unspecified; E11.51 Type 2 diabetes mellitus with diabetic peripheral angiopathy without gangrene; R79.1 Abnormal coagulation profile; K21.9 Gastro-esophageal reflux disease without esophagitis; F32.9 Major depressive disorder, single episode, unspecified; E83.42 Hypomagnesemia; I07.1 Rheumatic tricuspid insufficiency; E66.9 Obesity, unspecified; F41.9 Anxiety disorder, unspecified; I27.20 Pulmonary hypertension, unspecified; I25.2 Old myocardial infarction; Z79.4 Long term (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 of insulin; Z79.82 Long term (current) use of aspirin; Z79.01 Long term (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 of anticoagulants; Z89.511 Acquired absence of right leg below knee; Z95.1 Presence of aortocoronary bypass graft; Z86.718 Personal history of other venous thrombosis and embolism; Z79.899 Other long term (current) drug therapy; Z91.14 Patient's other noncompliance with medication regimen; Z88.8 Allergy status to other drugs, medicaments and biological substances; Z79.1 Long term (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 of non-steroidal anti-inflammatories (NSAID)
CPT/HCPCS: 36415; 71045; 80048; 80053; 80069; 81001; 82550; 82803; 82962; 83690; 83735; 83880; 84100; 85025; 85610; 87040; 93005; 93010; 96374; 99285; J1815; J1940; J2405; J3475; J3490; P9047

== ENCOUNTER 2019-11-09 05:26 | Emergency (ER) | payer MEDICAID, MEDICARE ==
[2019-11-09 05:55] LABS: ABSOLUTE BASOPHILS # (AUTO) 0.1 10^3/uL (0.0-0.2); ABSOLUTE EOSINOPHILS # (AUTO) 0.1 10^3/uL (0.0-0.6); ABSOLUTE MONOCYTES (AUTO) 0.4 10^3/uL (0.1-1.4); ABSOLUTE NEUT (AUTO) 3.5 10^3/uL (1.7-8.2); BASOPHILS % (AUTO) 1.2 % (0-2); HEMATOCRIT 34.7 % (36.0-47.0); HEMOGLOBIN 10.6 g/dL (12.0-15.5); LYMPHOCYTES % (AUTO) 19.6 % (13-45); MEAN CORPUSCULAR HEMOGLOBIN 24.3 pg (27.0-33.4); MEAN CORPUSCULAR HGB CONC 30.6 g/dL (32.0-36.0); MEAN CORPUSCULAR VOLUME 80 fl (80-97); MONOCYTES % (AUTO) 8.8 % (3-13); PLATELET COUNT 222 10^3/uL (150-450); RED BLOOD COUNT 4.37 10^6/uL (3.72-5.28); RED CELL DISTRIBUTION WIDTH 18.6 % (11.5-14.0); SEGMENTED NEUTROPHILS % (AUTO) 68.4 % (42-78); TOTAL CELLS COUNTED % (AUTO) 100 %; WHITE BLOOD COUNT 5.1 10^3/uL (4.0-10.5)
[2019-11-09 06:17] LABS: ALBUMIN 3.7 g/dL (3.5-5.0); ALKALINE PHOSPHATASE 61 U/L (38-126); ANION GAP 11 (5-19); ASPARTATE AMINO TRANSFERASE 18 U/L (14-36); BILIRUBIN,DIRECT 0.2 mg/dL (0.0-0.4); BILIRUBIN,TOTAL 0.6 mg/dL (0.2-1.3); BLOOD UREA NITROGEN 43 mg/dL (7-20); CALCIUM 9.2 mg/dL (8.4-10.2); CARBON DIOXIDE 27 mmol/L (22-30); CHLORIDE 99 mmol/L (98-107); GLUCOSE 167 mg/dL (75-110); POTASSIUM 4.4 mmol/L (3.6-5.0)
[2019-11-09 06:28] LABS: NT PRO BNP 19100 pg/mL (<125)
[2019-11-09 06:29] LABS: TROPONIN I < 0.012 ng/mL
--- NOTE | 2019-11-09 06:30 | RADIOLOGY REPORT (SQ) ---
EXAM DESCRIPTION: XR CHEST 1 VIEW COMPLETED DATE/TME: 11/09/2019 05:40 CLINICAL HISTORY: 49 years, Female, shortness of breath COMPARISON: 10/24/2019 chest NUMBER OF VIEWS: 1 TECHNIQUE: Portable chest LIMITATIONS: None. FINDINGS: Stable cardiomegaly and postsurgical change. Elevation right hemidiaphragm. Lungs clear. No pneumothorax IMPRESSION: No acute cardiopulmonary process copyright 2010 [employer]- All Rights Reserved
--- NOTE | 2019-11-09 06:30 | ER Document Report ---
ED General - General Chief Complaint: Shortness Of Breath Stated Complaint: SHORTNESS OF BREATH Time Seen by Provider: 11/09/19 06:14 Primary Care Provider: THERESE NEUMANN DO [Primary Care Provider] - Follow up as needed TRAVEL OUTSIDE OF THE [place] IN LAST 30 DAYS: No - HPI Notes: CC: Dyspnea HPI: 49 y.o. female seen today for worsening dyspnea and swelling of abdomen. Reports compliance with all of her regular medications. Denies fever. Denies travel. Denies known exposure to individuals with documented COVID infection. No chest pain. No sputum production. Dyspnea is aggravated by recumbency. D/C from hospitalist service here ~1 week ago after treatment for multiple medical problems including: Acute decompensated heart failure, anasarca, cardiorenal syndrome, diabetic ulceration of left foot, uncontrolled diabetes mellitus type 2, paroxysmal atrial fibrillation with anticoagulation, acute on chronic kidney disease, COPD, peripheral vascular disease and subtherapeutic INR. Patient has had past BKA right lower extremity and previous CABG. Patient quit smoking in March 2019. She does not currently use oxygen at home. Medications at the time of recent hospital discharge: Bumetanide [Bumex 1 mg Tablet] 2 mg PO BID 30 Days tablet Apixaban [Eliquis 5 mg Tablet] 5 mg PO BID 30 Days tablet Magnesium Oxide [Mag-Ox 400 mg Tablet] 400 mg PO DAILY #30 tablet Collagenase Clostridium Hist. [Santyl Ointment 30 gm] 1 applic TP DAILY 15 Days tube Acetaminophen [Tylenol Extra Strength 500 mg Tablet] 1,000 mg PO Q8HP PRN 07/02/19 Aspirin [Adult Low Dose Aspirin EC] 81 mg PO DAILY 07/02/19 Buspirone HCl [Buspar 15 mg Tablet] 7.5 mg PO Q12 07/02/19 Carvedilol [Coreg 3.125 mg Tablet] 3.125 mg PO Q12 07/02/19 Citalopram Hydrobromide [Celexa 40 mg Tablet] 40 mg PO DAILY 07/02/19 Fenofibrate Nanocrystallized [Tricor 145 mg Tablet] 145 mg PO DAILY 07/02/19 Lisinopril [Prinivil 5 mg Tablet] 5 mg PO DAILY 07/02/19 Metformin HCl [Glucophage] 1,000 mg PO QPM 07/02/19 Metoclopramide HCl [Reglan 10 mg Tablet] 10 mg PO ACHS 07/02/19 Oxycodone HCl [Oxy-Ir 5 mg Tablet] 10 mg PO Q8HP PRN 07/02/19 Pantoprazole Sodium [Protonix [address] Tablet] 40 mg PO DAILY 07/02/19 Trazodone HCl [Desyrel 50 mg Tablet] 50 mg PO HSP PRN 07/02/19 Atorvastatin Calcium [Lipitor 80 mg Tablet] 80 mg PO QHS tablet 07/04/19 Diphenhydramine HCl [Benadryl] 50 mg PO DAILYP PRN 09/30/19 Ferrous Sulfate [Feosol 325 mg Tablet] 325 mg PO DAILY 30 Days #30 tablet 10/09/19 Hum Insulin NPH/Reg Insulin Hm [Insulin 70-30 (NPH/Reg) 100 unit/mL] 5 unit SUBCUT BIDACBS 30 Days #1 unit 10/09/19 Gabapentin [Neurontin 300 mg Capsule] 600 mg PO QID 10/24/19 Metformin HCl 500 mg PO QAM 10/24/19 Nitroglycerin [Nitrostat 0.4 mg (1/150 Gr) Tabs 25/Bottle] 1 tab SL Q5MP PRN 10/24/19 Polyethylene Glycol 3350 [Miralax Powder 17 gm/Packet] 1 packet PO DAILYP PRN 10/24/19 Resuscitation status: Full code. - Related Data Allergies/Adverse Reactions: amlodipine Allergy (Severe, Verified 09/30/19 08:47) Hallucinations isosorbide [From Imdur] Allergy (Intermediate, Verified 09/30/19 08:47) RASH zolpidem [From Ambien] Adverse Reaction (Severe, Verified 09/30/19 08:47) Hallucinations Past Medical History - General Information source: Patient, [facility] Records - Social History Smoking Status: Former Smoker Chew tobacco use (# tins/day): No Frequency of alcohol use: None Drug Abuse: None Family History: CAD, CVA, DM, Hypertension, Malignancy, Other - Kidney disease Patient has suicidal ideation: No Patient has homicidal ideation: No - Past Medical History Cardiac Medical History: Reports: Hx Atrial Fibrillation, Hx Congestive Heart Failure, Hx Coronary Artery Disease, Hx DVT, Hx Heart Attack - x3 per patient, Hx Hypertension, Hx Peripheral Vascular Disease Pulmonary Medical History: Reports: Hx Bronchitis, Hx COPD, Hx Pneumonia Neurological Medical History: Denies: Hx Migraine, Hx Seizures Endocrine Medical History: Reports: Hx Diabetes Mellitus Type 2. Denies: Hx Diabetes Mellitus Type 1, Hx Hyperthyroidism, Hx Hypothyroidism Renal/ Medical History: Reports: Hx Hemodialysis - Short-term for fluid overload only, Hx Kidney Stones, Hx Renal Insufficiency. Denies: Hx Peritoneal Dialysis GI Medical History: Reports: Hx Gastroesophageal Reflux Disease, Hx Hiatal H ernia, Hx Irritable Bowel. Denies: Hx Cirrhosis, Hx Crohn's Disease, Hx Hepatitis, Hx Ulcerative Colitis Musculoskeletal Medical History: Reports Hx Arthritis, Denies Hx Fibromyalgia, Denies Hx Gout, Reports Hx Musculoskeletal Deformity, Reports Hx Musculoskeletal Trauma Skin Medical History: Reports Hx Cellulitis, Denies Hx Eczema, Denies Hx Psor iasis Psychiatric Medical History: Reports: Hx Anxiety, Hx Depression Infectious Medical History: Denies: Hx Hepatitis Past Surgical History: Reports: Hx Abdominal Surgery, Hx Cardiac Catheterization, Hx Cardiac Surgery - CABG, Hx Section - x2, Hx Cholecystectomy, Hx Coronary Artery Bypass Graft - x3, Hx Herniorrhaphy - Ventral hernia, Hx Orthopedic Surgery - Knee surgery, Hx Tubal Ligation, Hx Vascular Surgery - Left iliofemoral bypass, Other - Peripheral nerve stimulator implantation - Immunizations Immunizations up to date: Yes Hx Diphtheria, Pertussis, Tetanus Vaccination: Yes Hx Pneumococcal Vaccination: 07/23/09 Review of Systems - Review of Systems Notes: Constitutional: Negative for fever. HENT: Negative for sore throat. Eyes: Negative for visual changes. Cardiovascular: Negative for chest pain. Respiratory: As per HPI. Gastrointestinal: Negative for abdominal pain, vomiting or diarrhea. Genitourinary: Negative for dysuria. Musculoskeletal: Negative for back pain. Skin: Negative for rash. Neurological: Negative for headaches, focal weakness or numbness. 10 point ROS negative except as marked above and in HPI. Physical Exam - Vital signs Vitals: Temp Pulse Resp BP Pulse Ox 97.8 F 87 22 H 140/75 H 95 11/09/19 05:30 11/09/19 05:30 11/09/19 05:30 11/09/19 05:30 11/09/19 05:30 - Notes Notes: GENERAL: Female patient approximately stated age seen sitting upright and appearing in mild distress due to dyspnea. SKIN: Good turgor no rashes. HEAD: Normocephalic atraumatic. EYES: PERRLA. EOMI. Conjunctivae and sclerae clear. EARS: CANALS AND TMS CLEAR. NOSE: CLEAR. MOUTH: Moist mucosa. Good dentition. No stridor or edema. No drooling. NECK: Supple. No masses or thyromegaly. No adenopathy. Carotids 2+ without bruits. 2 cm's JVD at 45 degrees elevation. BACK: Symmetrical without tenderness. CHEST: Respirations mildly labored. Coarse rales and diminished breath sounds both bases symmetrically. HEART: Healed CABG scar. Regular rhythm. No murmur gallop or rub. ABDOMEN: Obese. Soft nontender without masses, organomegaly or rebound. Bowel sounds normally active. No bruits. GENITALIA: Deferred. EXTREMITIES: Right BKA. 2+ edema left lower leg. Healed surgical scars left lower leg from previous venous harvest. No calf tenderness. Cap refill less than 1.5 seconds. Dorsalis pedis and posterior tibial pulses 3+ and symmetrical. NEUROLOGICAL: GCS 15. Alert and oriented x3. Normal gait. Fluent speech. Cranial nerves II through XII intact. Sensorimotor and cerebellar normal. Normal tone. PSYCHIATRIC: Anxious affect. Course - Re-evaluation Re-evalutation: 11/09/19 10:12 EKG showed no new changes. She is on sinus rhythm today. Her BNP is up somewhat from her prior value. She was around 15,000 last week and she is around 19,000 now. Her chest x-ray, however, is remarkable only for c ardiomegaly without significant vascular congestion or pleural effusion. She was somewhat dyspneic when she arrived here but had an O2 sat of 94% on room air. We placed her initially on 3 L and she is very comfortable with this and it showed a good blood gas. Her troponin is normal. Her creatinine is essentially at baseline. I gave her a dose of Lasix 80 mg IV. She had a brisk diuresis and at that point also had a large bowel movement. She notes that her abdominal swelling is better and her breathing is improved. Because of potential for exposure to COVID virus in the hospital I think it is probably in her best interest that we try to treat her as an outpatient. We can wean her off oxygen she can maintain satisfactory oxygenation and continued improvement of her symptoms I think she can go home perhaps with the addition of some transdermal nitroglycerin. 04/19/20 10:40 Patient continues to hold a normal O2 saturation 98% on room air at this time. I am going to add some transdermal nitroglycerin to her present regimen and discharge her home for outpatient follow-up with primary care. She understands she can return here immediately for new or worsening symptoms. - Vital Signs Vital signs: Temp Pulse Resp BP Pulse Ox 97.8 F 87 19 132/84 H 100 11/09/19 05:30 11/09/19 05:30 11/09/19 08:16 11/09/19 08:16 11/09/19 08:16 - Laboratory Result Diagrams: 11/09/19 05:43 11/09/19 05:43 Laboratory results interpreted by me: 11/09/19 11/09/19 11/09/19 05:43 05:43 05:43 Hgb 10.6 L Hct 34.7 L MCH 24.3 L MCHC 30.6 L RDW 18.6 H PT APTT ABG pO2 BUN 43 H Creatinine 1.93 H Est GFR ( Amer) 33 L Est GFR (MDRD) Non-Af 27 L Glucose 167 H NT-Pro-B Natriuret Pep 33433 H 11/09/19 11/09/19 05:43 06:53 Hgb Hct MCH MCHC RDW PT 29.0 H APTT 50.0 H ABG pO2 108.0 H BUN Creatinine Est GFR ( Amer) Est GFR (MDRD) Non-Af Glucose NT-Pro-B Natriuret Pep - EKG Interpretation by Me Additional EKG results interpreted by me: 11/09/19 06:42 Twelve-lead EKG from 0556 hrs. reviewed contemporaneously by me demonstrates normal sinus rhythm with a rate of 84. QRS axis is -9 degrees. Nonspecific intraventricular conduction delay. Low voltage throughout. Discharge - Discharge Clinical Impression: Congestive heart failure (CHF) Qualifiers: Heart failure type: unspecified Heart failure chronicity: acute on chronic Qualified Code(s): I50.9 - Heart failure, unspecified Condition: Stable Disposition: HOME, SELF-CARE Additional Instructions: Congestive Heart Failure You have been diagnosed as having congestive heart failure (CHF). CHF oc curs when the heart is unable to pump blood efficiently, leading to fluid buildup in the veins and lungs. Typical symptoms are swelling of the legs, shortness of breath on minor exertion, and fatigue. CHF is treated with salt restriction, medicine to eliminate excess water and salt from the body, and medication to help the heart contract more efficiently. Eliminate added salt and salty foods in your diet. Decrease your activity until excess fluid has been eliminated. It will also be helpful to raise the head of your bed so you can sleep more easily. Keep a daily record of your weight. This will help your physician monitor your progress. Once extra water has been eliminated, light aerobic exercise daily -- such as walking -- will be helpful (unless your physician has told you to restrict activity for other reasons). Be sure to follow up with the physician as instructed. Contact the doctor at once if you worsen in any way. Continue all of your current medications. Follow-up with your primary care physician within the next 2 to 3 days. Return here as needed for new or worsening symptoms. Referrals: THERESE NEUMANN, [Primary Care Provider] - Follow up as needed
[2019-11-09] MEDS ORDERED: FUROSEMIDE INJ/PF 20 MG/2 ML SDV IV ONE (06:31)
[2019-11-09 07:20] LABS: ARTERIAL BLOOD BASE EXCESS -0.6 mmol/L; ARTERIAL BLOOD H2CO3 1.14 mmol/L (1.05-1.35); ARTERIAL BLOOD HCO3 23.8 mmol/L (20-24); ARTERIAL BLOOD PCO2 37.9 mmHg (35-45); ARTERIAL BLOOD PH 7.42 (7.35-7.45); ARTERIAL BLOOD TOTAL CO2 24.9 mmol/L (21-25)
[2019-11-09 07:20] LABS: INTERNATIONAL RATION (INR) 2.68
[2019-11-09 07:21] LABS: ARTERIAL BLOOD FIO2 3L
[2019-11-09] MEDS ORDERED: OXYCODONE HCL IR 5 MG TABLET PO ONE (09:19)
[2019-11-09 11:19] VITALS: BP 121/83
--- NOTE | 2019-11-09 11:57 | EKG REPORT ---
SEVERITY:- ABNORMAL ECG - SINUS RHYTHM NONSPECIFIC INTRAVENTRICULAR CONDUCTION DELAY LOW VOLTAGE THROUGHOUT CONSIDER ANTERIOR INFARCT : Confirmed by: Rojas Jo MD 09-Nov-2019 11:56:48
== END 2019-11-09 11:20 | disposition home or self-care (01) ==
LOC: ER 05:26
DX: I50.9 Heart failure, unspecified (principal); R06.02 Shortness of breath; R06.00 Dyspnea, unspecified; R19.00 Intra-abdominal and pelvic swelling, mass and lump, unspecified site; I11.0 Hypertensive heart disease with heart failure; E11.9 Type 2 diabetes mellitus without complications; I48.91 Unspecified atrial fibrillation; I25.10 Atherosclerotic heart disease of native coronary artery without angina pectoris; Z86.718 Personal history of other venous thrombosis and embolism; Z79.84 Long term (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 of oral hypoglycemic drugs; I25.2 Old myocardial infarction; Z95.1 Presence of aortocoronary bypass graft
CPT/HCPCS: 93005; 99285; 96374; 36415; 82803; 83735; 85025; 85610; 85730; 80053; 84484; 83880; 71045; 93010; 36600; J1940; A9270

== ENCOUNTER → 2019-12-10 | Outpatient (CLI) | payer MEDICAID, MEDICARE ==
--- NOTE | 2019-12-10 14:46 | RADIOLOGY REPORT (SQ) ---
EXAM DESCRIPTION: ARTERIAL LOWER EXTREM BILAT IMAGES COMPLETED DATE/TIME: 12/10/2019 2:19 pm REASON FOR STUDY: LT HEEL ULCER L97.422 NON-PRS CHR ULCER OF LEFT HEEL AND MIDFOOT W FAT LAY COMPARISON: None. TECHNIQUE: Dynamic and static juárez scale and color images acquired of the lower extremity arteries. Additional selected spectral images recorded. ABIs recorded. LIMITATIONS: None. FINDINGS: RIGHT LEG: ABIS: Not applicable. Prior below the knee amputation. INFLOW ARTERIES: Waveforms are biphasic. FEMORAL ARTERIES:Biphasic waveforms in deep femoral artery. Monophasic waveforms in the visualized S FA. POPLITEAL ARTERY:Monophasic waveform. No high-grade stenosis. LEFT LEG: ABIS: 0.65. INFLOW ARTERIES: Biphasic inflow. FEMORAL ARTERIES:The left femoral popliteal bypass graft appears occluded. The common femoral and de ep femoral artery are patent with biphasic waveforms. Minimal flow in the creek SFA. POPLITEAL ARTERY:Monophasic waveforms. PATENT TIBIOPERONEAL TRUNK AND 3 VESSEL RUNOFF: Monophasic infrapopliteal runoff. TBI: Not performed. OTHER: No other significant finding. IMPRESSION: Occluded left femoral popliteal bypass graft. YAJAIRA is 0.65. Monophasic flow in the popl iteal and infrapopliteal vessels. COMMENT: [facility] NORMAL: Greater than 1.0 MINIMAL DISEASE: 0.9 to 1.0 CLAUDICATION: 0.5 to 0.9 SEVERE ARTERIAL DISEASE: Less than 0.[address] [facility] NORMAL: Greater than 1.0 (1.2 If Heavy Calcifications) NORMAL TO MILD ISCHEMIA: 0.8 to 1.0 MODERATE ISCHEMIA: 0.4 to 0.8 SEVERE ISCHEMIA: Less than 0.4 TECHNICAL DOCUMENTATION: JOB ID: [id number] 2010 [facility]- All Rights Reserved Reading location - IP/workstation name: [email or web address]
--- NOTE | 2019-12-10 14:46 | RADIOLOGY REPORT (SQ) ---
EXAM DESCRIPTION: PHYSIO ARTERIAL LTD COMPLETE DATE/TIME: 12/10/2019 2:19 pm REASON FOR STUDY: LT HEEL ULCER L97.422 NON-PRS CHR ULCER OF LEFT HEEL AND MIDFOOT W FAT LAY FINDINGS: Please see combined report for performance of procedure and radiologic supervision and int erpretation. IMPRESSION: Please see combined report for performance of procedure and radiologic supervision and i nterpretation. Reading location - IP/workstation name: [email or web address]
== END ==
LOC: SP 08:08
PROVIDERS: ATTEND Preventive Medicine Undersea and Hyperbaric Medicine
DX: E11.621 Type 2 diabetes mellitus with foot ulcer (principal); L97.422 Non-pressure chronic ulcer of left heel and midfoot with fat layer exposed
CPT/HCPCS: 93922; 93925

== ENCOUNTER → 2019-12-10 | Outpatient (CLI) | payer MEDICARE ==
[2019-12-10 11:37] LABS: ALKALINE PHOSPHATASE 51 U/L (38-126); ANION GAP 14 (5-19); ASPARTATE AMINO TRANSFERASE 13 U/L (14-36); BILIRUBIN,DIRECT 0.4 mg/dL (0.0-0.4); BILIRUBIN,TOTAL 0.7 mg/dL (0.2-1.3); BLOOD UREA NITROGEN 74 mg/dL (7-20); CALCIUM 9.2 mg/dL (8.4-10.2); CARBON DIOXIDE 33 mmol/L (22-30); CHLORIDE 85 mmol/L (98-107); GLUCOSE 262 mg/dL (75-110); POTASSIUM 5.2 mmol/L (3.6-5.0); TOTAL PROTEIN 7.1 g/dL (6.3-8.2)
[2019-12-10 11:38] LABS: ERYTHROCYTE SEDIMENTATION RATE 45 mm/hr (0-30)
[2019-12-10 11:44] LABS: ABSOLUTE BASOPHILS # (AUTO) 0.1 10^3/uL (0.0-0.2); ABSOLUTE EOSINOPHILS # (AUTO) 0.2 10^3/uL (0.0-0.6); ABSOLUTE LYMPHOCYTES (AUTO) 1.2 10^3/uL (0.5-4.7); ABSOLUTE MONOCYTES (AUTO) 0.4 10^3/uL (0.1-1.4); ABSOLUTE NEUT (AUTO) 5.7 10^3/uL (1.7-8.2); BASOPHILS % (AUTO) 0.8 % (0-2); EOSINOPHILS % (AUTO) 2.5 % (0-6); HEMOGLOBIN 10.4 g/dL (12.0-15.5); LYMPHOCYTES % (AUTO) 15.9 % (13-45); MEAN CORPUSCULAR HEMOGLOBIN 23.7 pg (27.0-33.4); MEAN CORPUSCULAR HGB CONC 31.5 g/dL (32.0-36.0); MEAN CORPUSCULAR VOLUME 75 fl (80-97); MONOCYTES % (AUTO) 5.8 % (3-13); PLATELET COUNT 236 10^3/uL (150-450); RED CELL DISTRIBUTION WIDTH 19.8 % (11.5-14.0); TOTAL CELLS COUNTED % (AUTO) 100 %; WHITE BLOOD COUNT 7.6 10^3/uL (4.0-10.5)
--- NOTE | 2019-12-10 12:18 | RADIOLOGY REPORT (SQ) ---
EXAM DESCRIPTION: OS CALCIS/HEEL LEFT IMAGES COMPLETED DATE/TIME: 12/10/2019 12:02 pm REASON FOR STUDY: NON-PRS CHR ULCER OF LEFT HEEL AND MIDFOOT W FAT LAYER EXPOS L97.422 NON-PRS CHR ULCER OF LEFT HEEL AND MIDFOOT W FAT LAY E11.621 TYPE 2 DIABETES MELLITUS WITH FOOT ULCER COMPARISON: None. NUMBER OF VIEWS: Two views. TECHNIQUE: Plantar and oblique radiographic images acquired of the left calcaneous. LIMITATIONS: None. FINDINGS: MINERALIZATION: Normal. BONES: No acute fracture or dislocation. No worrisome bone lesions. JOINTS: No effusions. SOFT TISSUES: No soft tissue swelling. No foreign body. OTHER: Small calcaneal spurs. IMPRESSION: No conventional radiographic evidence of osteomyelitis. TECHNICAL DOCUMENTATION: JOB ID: [id number] [employer]- All Rights Reserved Reading location - IP/workstation name: [email or web address]
== END ==
LOC: WC 10:22
PROVIDERS: ATTEND Nurse Practitioner Family
DX: E11.621 Type 2 diabetes mellitus with foot ulcer (principal); L97.422 Non-pressure chronic ulcer of left heel and midfoot with fat layer exposed
CPT/HCPCS: 36415; 80053; 83036; 85025; 85652; 86140

== ENCOUNTER 2020-04-01 13:49 | Inpatient (IN) | payer MEDICARE ==
--- NOTE | 2020-04-01 14:26 | ER Document Report ---
ED General - General Chief Complaint: Altered Mental Status Stated Complaint: ALTERED MENTAL STATUS,FEVER Time Seen by Provider: 04/01/20 14:04 Primary Care Provider: MITESH CAICEDO MD [Primary Care Provider] - Follow up as needed Notes: 49-year-old female presents with altered mental status. History of diabetes amaya ateral [id number] amputations chronic left leg wound and apparently a recent UTI? I do not see records of that here but the nurses know my thoughts with been going on with her. Blood sugar was elevated to 300 today and she was altered so she was brought in. No further formation is available. The patient cannot give much history other than the left leg pain. TRAVEL OUTSIDE OF THE [place] IN LAST 30 DAYS: No - Related Data Allergies/Adverse Reactions: amlodipine Allergy (Severe, Verified 09/30/19 08:47) Hallucinations isosorbide [From Imdur] Allergy (Intermediate, Verified 09/30/19 08:47) RASH zolpidem [From Ambien] Adverse Reaction (Severe, Verified 09/30/19 08:47) Hallucinations Past Medical History - Social History Smoking Status: Unknown if Ever Smoked Family History: CAD, CVA, DM, Hypertension, Malignancy, Other - Kidney disease - Past Medical History Cardiac Medical History: Reports: Hx Atrial Fibrillation, Hx Congestive Heart Failure, Hx Coronary Artery Disease, Hx DVT, Hx Heart Attack - x3 per patient, Hx Hypertension, Hx Peripheral Vascular Disease Pulmonary Medical History: Reports: Hx Bronchitis, Hx COPD, Hx Pneumonia Neurological Medical History: Denies: Hx Migraine, Hx Seizures Endocrine Medical History: Reports: Hx Diabetes Mellitus Type 2. Denies: Hx Diabetes Mellitus Type 1, Hx Hyperthyroidism, Hx Hypothyroidism Renal/ Medical History: Reports: Hx Hemodialysis - Short-term for fluid overload only, Hx Kidney Stones, Hx Renal Insufficiency. Denies: Hx Peritoneal Dialysis GI Medical History: Reports: Hx Gastroesophageal Reflux Disease, Hx Hiatal Hernia, Hx Irritable Bowel. Denies: Hx Cirrhosis, Hx Crohn's Disease, Hx Hepati tis, Hx Ulcerative Colitis Musculoskeletal Medical History: Reports Hx Arthritis, Denies Hx Fibromyalgia, Denies Hx Gout, Reports Hx Musculoskeletal Deformity, Reports Hx Musculoskeletal Trauma Skin Medical History: Reports Hx Cellulitis, Denies Hx Eczema, Denies Hx Psoriasis Psychiatric Medical History: Reports: Hx Anxiety, Hx Depression Infectious Medical History: Denies: Hx Hepatitis Past Surgical History: Reports: Hx Abdominal Surgery, Hx Cardiac Catheterization, Hx Cardiac Surgery - CABG, Hx Section - x2, Hx Cholecystectomy, Hx Coronary Artery Bypass Graft - x3, Hx Herniorrhaphy - Ventral hernia, Hx Orthopedic Surgery - Knee surgery, Hx Tubal Ligation, Hx Vascular Surgery - Left iliofemoral bypass, Other - Peripheral nerve stimulator implantation - Immunizations Immunizations up to date: Yes Hx Diphtheria, Pertussis, Tetanus Vaccination: Yes Hx Pneumococcal Vaccination: 07/23/09 Review of Systems - Review of Systems Notes: REVIEW OF SYSTEMS Her mental status PHYSICAL EXAMINATION General: No acute distress, well-nourished Head: Atraumatic, normocephalic ENT: Mouth normal, oropharynx moist, no exudates or tonsillar enlargement Eyes: Conjunctiva normal, pupils equal, lids normal Neck: No JVD, supple, no guarding CVS: Normal rate, regular rhythm, no murmurs Resp: No resp distress, equal and normal breath sounds bilaterally GI: Nondistended, soft, no tenderness to palpation, no rebound or guarding Ext: Chronic appearing wound left AKA stump. Right is normal. Lymphatic: No lymphadeopathy noted Neuro: Awake, confused but answers questions. Moves all extremities. Physical Exam - Vital signs Vitals: Resp Pulse Ox 14 96 04/01/20 13:51 04/01/20 13:51 Course - Re-evaluation Re-evalutation: 04/01/20 15:10 Patient presents with altered mental status reported fever at facility and possible UTI although I do not see any recent records. Does not appear to have a soft tissue infection of the left lower extremity Urine culture from yesterday already growing out gram-negative rods no speciation Hemodynamically stable lactic is normal Sepsis protocol initiated. Leukocytosis with left shift noted. Ordered cefepime and 1 L of normal saline Patient improved some with fluids and time, I discussed her case with Dr. Tay who happily admitted her. - Vital Signs Vital signs: Temp Pulse Resp BP Pulse Ox 76 15 120/64 96 04/01/20 14:00 04/01/20 14:01 04/01/20 14:01 04/01/20 14:10 - Laboratory Result Diagrams: 04/01/20 13:45 04/01/20 13:45 Laboratory results interpreted by me: 09/10/20 09/10/20 09/10/20 13:45 13:45 13:45 WBC 22.5 H D Hgb 10.9 L Hct 33.4 L RDW 16.7 H Seg Neuts % (Manual) 91 H Band Neutrophils % 1 L Lymphocytes % (Manual) 4 L Abs Neuts (Manual) 20.7 H PT 16.2 H BUN 47 H Creatinine 1.37 H Est GFR ( Amer) 49 L Est GFR (MDRD) Non-Af 41 L Glucose 208 H Critical Care Note - Critical Care Note Total time excluding time spent on procedures (mins): 31 Comments: The above patient is critically ill. Not including procedures, but including direct re-evaluations, speaking with patient and/or consultants, interpreting results, and documenting, I spent the total amount of minute listed listed above on critical care time Discharge - Discharge Clinical Impression: Pyelonephritis Condition: Fair Disposition: ADMITTED INPATIENT Admitting Provider: [facility] Unit Admitted: Medical Floor Referrals: MITESH CAICEDO MD [Primary Care Provider] - Follow up as needed
[2020-04-01 14:29] LABS: HEMATOCRIT 33.4 % (36.0-47.0); HEMOGLOBIN 10.9 g/dL (12.0-15.5); MEAN CORPUSCULAR HEMOGLOBIN 28.1 pg (27.0-33.4); MEAN CORPUSCULAR HGB CONC 32.8 g/dL (32.0-36.0); MEAN CORPUSCULAR VOLUME 86 fl (80-97); RED CELL DISTRIBUTION WIDTH 16.7 % (11.5-14.0)
[2020-04-01 14:33] LABS: INTERNATIONAL RATION (INR) 1.28; PROTHROMBIN TIME 16.2 SEC (11.4-15.4)
[2020-04-01 14:43] LABS: WHITE BLOOD COUNT 22.5 10^3/uL (4.0-10.5)
[2020-04-01 14:46] LABS: ABSOLUTE LYMPHOCYTES# (MANUAL) 1.1 10^3/uL (0.5-4.7); ABSOLUTE MONOCYTES # (MANUAL) 0.7 10^3/uL (0.1-1.4); BAND NEUTROPHILS % (MANUAL) 1 % (3-5); BASOPHILS % (MANUAL) 0 % (0-2); EOSINOPHILS % (MANUAL) 0 % (0-6); LYMPHOCYTES % (MANUAL) 4 % (13-45); MONOCYTES % (MANUAL) 3 % (3-13); SEGMENTED NEUTROPHILS % (MAN) 91 % (42-78); TOTAL CELLS COUNTED 100
[2020-04-01 14:48] LABS: PLATELET CLUMPS PRESENT; PLATELET COMMENT ADEQUATE
[2020-04-01 14:49] LABS: ANISOCYTOSIS 1+; PLATELET COUNT 275 10^3/uL (150-450)
[2020-04-01 14:59] LABS: ALBUMIN 3.8 g/dL (3.5-5.0); ALKALINE PHOSPHATASE 65 U/L (38-126); ANION GAP 14 (5-19); ASPARTATE AMINO TRANSFERASE 20 U/L (14-36); BILIRUBIN,DIRECT 0.4 mg/dL (0.0-0.4); BILIRUBIN,TOTAL 0.9 mg/dL (0.2-1.3); BLOOD UREA NITROGEN 47 mg/dL (7-20); CALCIUM 9.6 mg/dL (8.4-10.2); CARBON DIOXIDE 27 mmol/L (22-30); CHLORIDE 104 mmol/L (98-107); GLUCOSE 208 mg/dL (75-110); TOTAL PROTEIN 7.3 g/dL (6.3-8.2)
[2020-04-01] MEDS ORDERED: NORMAL SALINE 1000 ML 1,000 ML IV ONE (14:59)
--- NOTE | 2020-04-01 15:04 | RADIOLOGY REPORT (SQ) ---
EXAM DESCRIPTION: CHEST SINGLE VIEW IMAGES COMPLETED DATE/TIME: 04/01/2020 2:45 pm REASON FOR STUDY: sob COMPARISON: None. EXAM PARAMETERS: NUMBER OF VIEWS: One view. TECHNIQUE: Single frontal radiographic view of the chest acquired. RADIATION DOSE: NA LIMITATIONS: None. FINDINGS: LUNGS AND PLEURA: No opacities, masses or pneumothorax. No pleural effusion. MEDIASTINUM AND HILAR STRUCTURES: No masses. Contour normal. HEART AND VASCULAR STRUCTURES: Heart normal in size. Normal vasculature. BONES: No acute findings. HARDWARE: Midline surgical changes, stable. OTHER: No other significant finding. IMPRESSION: No evidence of acute cardiopulmonary abnormality. TECHNICAL DOCUMENTATION: JOB ID: [id number] 2010 [employer]- All Rights Reserved Reading location - IP/workstation name: [email or web address]
--- NOTE | 2020-04-01 15:10 | EKG REPORT ---
SEVERITY:- ABNORMAL ECG - SINUS RHYTHM VENTRICULAR PREMATURE COMPLEX PROBABLE LEFT ATRIAL ABNORMALITY NONSPECIFIC INTRAVENTRICULAR CONDUCTION DELAY LVH WITH SECONDARY REPOLARIZATION ABNORMALITY : Confirmed by: Jeremias Murphy MD 01-Apr-2020 15:10:01
[2020-04-01 15:26] LABS: VENOUS BLOOD BASE EXCESS 2.8 mmol/L; VENOUS BLOOD HCO3 27.1 mmol/L (20-32); VENOUS BLOOD PCO2 40.5 mmHg (35-63); VENOUS BLOOD PH 7.44 (7.30-7.42)
[2020-04-01 15:30] LABS: TROPONIN I 0.023 ng/mL
[2020-04-01] MEDS ORDERED: IPRATROPIUM/ALBUTEROL 0.5-2.5 MG/3 ML AMPUL NEB PRN (16:21)
[2020-04-01 16:45] LABS: URINE AMPHETAMINES SCREEN NEGATIVE; URINE BARBITURATES SCREEN NEGATIVE; URINE BENZODIAZEPINES SCREEN NEGATIVE; URINE COCAINE SCREEN NEGATIVE; URINE MARIJUANA (THC) SCREEN NEGATIVE; URINE METHADONE SCREEN NEGATIVE; URINE PHENCYCLIDINE SCREEN NEGATIVE
--- NOTE | 2020-04-01 17:36 | RADIOLOGY REPORT (SQ) ---
EXAM DESCRIPTION: CT HEAD WITHOUT IMAGES COMPLETED DATE/TIME: 04/01/2020 4:44 pm REASON FOR STUDY: AMS of unclear etiology COMPARISON: 12/09/2018 TECHNIQUE: Axial images acquired through the brain without intravenous contrast. Images reviewed wi th bone, brain and subdural windows. Additional sagittal and coronal reconstructions were generated. Images stored on PACS. All CT scanners at this facility use dose modulation, iterative reconstruction, and/or weight based d osing when appropriate to reduce radiation dose to as low as reasonably achievable (ALARA). [facility]: Dose Right [facility]: CareDose [facility]: Dose Right [facility]: Teradose 4D [facility]: Smart Flud RADIATION DOSE: CT Rad equipment meets quality standard of care and radiation dose reduction techniq ues were employed. CTDIvol: 53.2 - 55.2 mGy. DLP: 1911 mGy-cm. mGy. LIMITATIONS: None. FINDINGS: VENTRICLES: Normal size and contour. CEREBRUM: No masses. No hemorrhage. No midline shift. No evidence for acute infarction. Normal gra y/white matter differentiation. No areas of low density in the white matter. CEREBELLUM: No masses. No hemorrhage. No alteration of density. No evidence for acute infarction. EXTRAAXIAL SPACES: No fluid collections. No masses. ORBITS AND GLOBE: No intra- or extraconal masses. Normal contour of globe without masses. CALVARIUM: No fracture. PARANASAL SINUSES: There is almost complete opacification of the right maxillary sinus. Mild mucoper iosteal changes are seen in the left. SOFT TISSUES: No mass or hematoma. OTHER: No other significant finding. IMPRESSION: Sinus disease as described. No acute intracranial imaging findings. EVIDENCE OF ACUTE STROKE: NO. COMMENT: Quality ID # [id number]: Final reports with documentation of one or more dose reduction techniques (e.g., Automated exposure control, adjustment of the mA and/or kV according to patient size, use of iterative reconstruction technique) TECHNICAL DOCUMENTATION: JOB ID: [id number] 2010 [employer]- All Rights Reserved Reading location - IP/workstation name: [email or web address]
[2020-04-01 17:41] LABS: ARTERIAL BLOOD BASE EXCESS 4.4 mmol/L; ARTERIAL BLOOD FIO2 2L; ARTERIAL BLOOD H2CO3 1.24 mmol/L (1.05-1.35); ARTERIAL BLOOD HCO3 28.6 mmol/L (20-24); ARTERIAL BLOOD PCO2 41.2 mmHg (35-45); ARTERIAL BLOOD PH 7.46 (7.35-7.45); ARTERIAL BLOOD PO2 145.2 mmHg (80-100); ARTERIAL BLOOD TOTAL CO2 29.8 mmol/L (21-25)
[2020-04-01 17:48] LABS: D-DIMER 0.65 ug/mL (0.00-0.50)
[2020-04-01 17:51] LABS: ALBUMIN 3.4 g/dL (3.5-5.0); ALKALINE PHOSPHATASE 55 U/L (38-126); ANION GAP 11 (5-19); ASPARTATE AMINO TRANSFERASE 18 U/L (14-36); BILIRUBIN,DIRECT 0.3 mg/dL (0.0-0.4); BILIRUBIN,TOTAL 0.7 mg/dL (0.2-1.3); BLOOD UREA NITROGEN 45 mg/dL (7-20); CALCIUM 9.2 mg/dL (8.4-10.2); CARBON DIOXIDE 29 mmol/L (22-30); CHLORIDE 105 mmol/L (98-107); GLUCOSE 189 mg/dL (75-110); POTASSIUM 3.8 mmol/L (3.6-5.0); TOTAL PROTEIN 6.6 g/dL (6.3-8.2)
[2020-04-01 18:03] LABS: ACETAMINOPHEN < 10 ug/mL (10-30); ALCOHOL < 10 mg/dL (NONE DETECTED); C-REACTIVE PROTEIN 201.4 mg/L (<10.0)
--- NOTE | 2020-04-01 18:20 | PDOC H&P ---
History of Present Illness Admission Date/PCP: 04/01/20 15:36 MITESH CAICEDO MD Patient complains of: altered mental status History of Present Illness: Ms. Indra Decker is a 49 year old woman with paroxysmal atrial fibrillation s/p ablation in 2009 on Xarelto, CHF, DVT, HTN, HLD, and insulin dependent DM2 c/b CKD, CAD s/p three-vessel CABG in 2009, and PAD s/p right BKA and left AKA who presents from subacute rehab due to altered mental status. History obtained from chart, ED provider and nursing staff at her rehab facility due to AMS. Nursing facility staff note that, at baseline, Ms. Decker is alert and oriented x4, speaks normally and has been excelling with PT. Beginning yesterday, they noticed an abrupt change in her mental status - specifically, that she was suddenly very slow to respond, looked "dazed" and was not following instructions properly. Today, she appeared flushed and diaphoretic to staff, but did not complain of any pain or discomfort. Labs and urine culture were performed at her facility yesterday showed UCx with 20-30K GNR, so she was sent to the ED due to concern for possible UTI. She has had no recent medication changes. Everyone at her facility was tested for COVID on Sunday and were all negative. She has had no sick contacts. She has not had fever, hypotension, or other VS abnormalities. Ms. Decker herself denies pain or discomfort. She was hypoxemic in the ED, but denies SOB or STARKS. She denies cough, chest pain, abdominal pain, diarrhea, nausea/vomiting, dysuria. Past Medical History Cardiac Medical History: Reports: Atrial Fibrillation, Congestive Heart Failure, Coronary Artery Disease, DVT, Myocardial Infarction - x3 per patient, Hyperlipidema, Hypertension, Peripheral Vascular Disease Pulmonary Medical History: Reports: Bronchitis, Chronic Obstructive Pulmonary Disease (COPD), Pneumonia Neurological Medical History: Denies: Migraine, Seizures Endocrine Medical History: Reports: Diabetes Mellitus Type 2 Denies: Diabetes Mellitus Type 1, Hyperthyroidism, Hypothyroidism Renal/ Medical History: Reports: Chronic Kidney Disease GI Medical History: Reports: Gastroesophageal Reflux Disease, Hiatal Hernia Denies: Cirrhosis, Crohn's Disease, Hepatitis, Ulcerative Colitis Musculoskeltal Medical History: Reports: Arthritis Denies: Fibromyalgia, Gout Skin Medical History: Denies: Eczema, Psoriasis Psychiatric Medical History: Reports: Depression, Tobacco Dependency Hematology: Reports: Anemia Denies: Bleeding Tendencies Past Surgical History Past Surgical History: Reports: Amputation - Right BKA, Left AKA, Cardiac Catheterization, Section - x2, Cholecystectomy, Coronary Artery Bypass Graft - x3, Herniorrhaphy - Ventral hernia, Orthopedic Surgery - Knee surgery, Tubal Ligation, Vascular Surgery - Left iliofemoral bypass, Other - Peripheral nerve stimulator implantation Social History Lives with: [facility] - rehab Smoking Status: Former Smoker Frequency of Alcohol Use: None Hx Recreational Drug Use: No Drugs: None Hx Prescription Drug Abuse: No Family History Family History: CAD, CVA, DM, Hypertension, Malignancy, Other - Kidney disease Parental Family History Reviewed: Yes Children Family History Reviewed: Yes Sibling(s) Family History Reviewed.: Yes Medication/Allergy Home Medications: Acetaminophen [Tylenol Extra Strength 500 mg Tablet] 1,000 mg PO Q8HP PRN 07/02/19 Aspirin [Adult Low Dose Aspirin EC] 81 mg PO DAILY 07/02/19 Buspirone HCl [Buspar 15 mg Tablet] 7.5 mg PO Q12 07/02/19 Carvedilol [Coreg 3.125 mg Tablet] 3.125 mg PO Q12 07/02/19 Citalopram Hydrobromide [Celexa 40 mg Tablet] 40 mg PO DAILY 07/02/19 Fenofibrate Nanocrystallized [Tricor 145 mg Tablet] 145 mg PO DAILY 07/02/19 Lisinopril [Prinivil 5 mg Tablet] 5 mg PO DAILY 07/02/19 Metformin HCl [Glucophage] 1,000 mg PO QPM 07/02/19 Metoclopramide HCl [Reglan 10 mg Tablet] 10 mg PO ACHS 07/02/19 Oxycodone HCl [Oxy-Ir 5 mg Tablet] 10 mg PO Q8HP PRN 07/02/19 Pantoprazole Sodium [Protonix [address] Tablet] 40 mg PO DAILY 07/02/19 Trazodone HCl [Desyrel 50 mg Tablet] 50 mg PO HSP PRN 07/02/19 Atorvastatin Calcium [Lipitor 80 mg Tablet] 80 mg PO QHS tablet 07/04/19 Diphenhydramine HCl [Benadryl] 50 mg PO DAILYP PRN 09/30/19 Ferrous Sulfate [Feosol 325 mg Tablet] 325 mg PO DAILY 30 Days #30 tablet 10/09/19 Hum Insulin NPH/Reg Insulin Hm [Insulin 70-30 (NPH/Reg) 100 unit/mL] 5 unit SUBCUT BIDACBS 30 Days #1 unit 10/09/19 Gabapentin [Neurontin 300 mg Capsule] 600 mg PO QID 10/24/19 Metformin HCl 500 mg PO QAM 10/24/19 Nitroglycerin [Nitrostat 0.4 mg (1/150 Gr) Tabs 25/Bottle] 1 tab SL Q5MP PRN 10/24/19 Polyethylene Glycol 3350 [Miralax Powder 17 gm/Packet] 1 packet PO DAILYP PRN 10/24/19 Apixaban [Eliquis 5 mg Tablet] 5 mg PO BID 30 Days tablet 11/01/19 Bumetanide [Bumex 1 mg Tablet] 2 mg PO BID 30 Days tablet 11/01/19 Collagenase Clostridium Hist. [Santyl Ointment 30 gm] 1 applic TP DAILY 15 Days tube 11/01/19 Magnesium Oxide [Mag-Ox 400 mg Tablet] 400 mg PO DAILY #30 tablet 11/01/19 Allergies/Adverse Reactions: amlodipine Allergy (Severe, Verified 04/01/20 15:14) Hallucinations isosorbide [From Imdur] Allergy (Intermediate, Verified 04/01/20 15:14) RASH zolpidem [From Ambien] Adverse Reaction (Severe, Verified 04/01/20 15:14) Hallucinations Review of Systems ROS unobtainable: Due to mental status Physical Exam Vital Signs: Temp Pulse Resp BP Pulse Ox 76 14 119/63 94 04/01/20 14:00 04/01/20 15:06 04/01/20 15:06 04/01/20 15:06 Intake & Output 03/31/20 04/01/20 04/02/20 06:59 06:59 06:59 Weight 69.3 kg Additional comments: General: obese woman in NAD Neuro: awake but drowsy, oriented to self/hospital/president/month but not situation, slow to respond and speak, no facial droop, does not follow commands, frequently unable to answer simple questions, +myoclonic jerks of bilateral upper extremities, +cogwheel rigidity of BUE Head: normocephalic, atraumatic Eyes: anicteric sclera, no nystagmus ENT: moist mucus membranes, no oropharyngeal erythema/exudate Neck: no lymphadenopathy, no JVD Lungs: clear to auscultation bilaterally anteriorly, normal work of breathing Heart: regular rate and rhythm, no murmurs/rubs/gallops Abdomen: obese, normoactive bowel sounds, soft, non-tender, non-distended : no CVA tenderness, no suprapubic tenderness Extremities: R BKA well healed, more recent L AKA Skin: no rash Results Laboratory Results: 04/01/20 13:45 04/01/20 13:45 04/01/20 04/01/20 04/01/20 13:35 13:45 13:45 WBC 22.5 H D RBC 3.90 Hgb 10.9 L Hct 33.4 L MCV 86 MCH 28.1 MCHC 32.8 RDW 16.7 H Plt Count 275 Seg Neutrophils % Not Reportable VBG pH VBG pCO2 VBG HCO3 VBG Base Excess Sodium 145.0 Potassium 4.0 Chloride 104 Carbon Dioxide 27 Anion Gap 14 BUN 47 H Creatinine 1.37 H Est GFR ( Amer) 49 L Glucose 208 H Lactic Acid 1.0 Calcium 9.6 Total Bilirubin 0.9 AST 20 Alkaline Phosphatase 65 Total Protein 7.3 Albumin 3.8 04/01/20 14:54 WBC RBC Hgb Hct MCV MCH MCHC RDW Plt Count Seg Neutrophils % VBG pH 7.44 H VBG pCO2 40.5 VBG HCO3 27.1 VBG Base Excess 2.8 Sodium Potassium Chloride Carbon Dioxide Anion Gap BUN Creatinine Est GFR ( Amer) Glucose Lactic Acid Calcium Total Bilirubin AST Alkaline Phosphatase Total Protein Albumin 04/01/20 13:45 Troponin I 0.023 NT-Pro-B Natriuret Pep 6810 H Impressions: Chest X-Ray 04/01/20 14:06 IMPRESSION: No evidence of acute cardiopulmonary abnormality. Assessment and Plan - Plan Summary Summary: Ms. Indra Decker is a 49 year old woman with paroxysmal atrial fibrillation s/p ablation in 2009 on Xarelto, CHF, DVT, HTN, HLD, and insulin dependent DM2 c/b CKD, CAD s/p three-vessel CABG in 2009, and PAD s/p right BKA and left AKA who presents from subacute rehab due to altered mental status. Nursing facility staff note that, at baseline, Ms. Decker is alert and oriented x4, speaks normally and has been excelling with PT. Beginning yesterday, they noticed an abrupt change in her mental status - specifically, that she was suddenly very slow to respond, looked "dazed" and was not following instructions properly. Today, she appeared flushed and diaphoretic to staff, but did not complain of any pain or discomfort. AMS with Concern for Sepsis: mild hypoxemia, leukocytosis with L shift, and new AMS concerning for underlying infection. CXR appears clear, no evidence of PNA or CHF exacerbation. She is unlikely to have PE/DVT given that she is chronically anticoagulated. CT head was notable for sinusitis but otherwise benign (acute stroke would be expected to show up at this time since she has had symptoms x2 days). She has myoclonic jerking of BUE but not acidotic on labs. She remains HD-stable. Kidney function is at baseline, no evidence of uremia. Anemia is at baseline, so bleeding is unlikely. - urine culture performed at her facility yesterday showed 20-30K GNR, potentially concerning for UTI - BCx x2 - COVID test pending, check ferritin, D-dimer, CRP - check ETOH, UDS, ammonia level - start antibiotic therapy with ceftriaxone (she has no prior evidence of resistant organisms) - hold AC overnight, as I may pursue LP tomorrow if no improvement in mental status and all other testing remains negative/normal - Time Time Spent with patient: 35 or more minutes Anticipated Discharge Disposition: [facility] Facility Anticipated Discharge Timeframe: within 72 hours
[2020-04-01] MEDS ORDERED: ACETAMINOPHEN 325 MG TABLET PO PRN (18:22)
[2020-04-01] MEDS ORDERED: DEXTROSE 40% GEL 15 GM TUBE PO PRN ×2 (18:31)
[2020-04-01] MEDS ORDERED: DEXTROSE 50%-WATER 25 GM/50 ML DISP.SYRIN IV PRN ×2 (18:31)
[2020-04-01] MEDS ORDERED: GLUCAGON,HUMAN RECOMB 1 MG INJ IM PRN (18:31)
[2020-04-01] MEDS: INSULIN LISPRO 100 UNIT/ML 3 ML VIAL SUBCUT SCH ×2 (19:39→23:08)
[2020-04-01] MEDS: OXYCODONE-ACETAMINOPHEN 5-325 MG TABLET PO PRN (23:08)
[2020-04-01] MEDS: INSULIN GLARGINE,HUM.REC.ANLOG 1,000 UNIT/10 ML VIAL SUBCUT SCH (23:09)
[2020-04-01] MEDS: TRAZODONE HCL 50 MG TABLET PO SCH (23:09)
[2020-04-01] MEDS: CARVEDILOL 3.125 MG TABLET PO SCH (23:09)
[2020-04-01] MEDS: ATORVASTATIN CALCIUM 80 MG TABLET PO SCH (23:09)
[2020-04-02] MEDS: PANTOPRAZOLE SODIUM 40 MG TABLET.DR PO SCH ×2 (05:02→16:58)
[2020-04-02] MEDS: OXYCODONE-ACETAMINOPHEN 5-325 MG TABLET PO PRN ×5 (05:05→23:36)
[2020-04-02 05:41] LABS: ABSOLUTE BASOPHILS # (AUTO) 0.1 10^3/uL (0.0-0.2); ABSOLUTE EOSINOPHILS # (AUTO) 0.2 10^3/uL (0.0-0.6); ABSOLUTE LYMPHOCYTES (AUTO) 1.8 10^3/uL (0.5-4.7); ABSOLUTE MONOCYTES (AUTO) 0.7 10^3/uL (0.1-1.4); ABSOLUTE NEUT (AUTO) 12.4 10^3/uL (1.7-8.2); BASOPHILS % (AUTO) 0.4 % (0-2); EOSINOPHILS % (AUTO) 1.6 % (0-6); HEMATOCRIT 29.1 % (36.0-47.0); HEMOGLOBIN 9.7 g/dL (12.0-15.5); LYMPHOCYTES % (AUTO) 11.9 % (13-45); MEAN CORPUSCULAR HEMOGLOBIN 28.2 pg (27.0-33.4); MEAN CORPUSCULAR HGB CONC 33.2 g/dL (32.0-36.0); MEAN CORPUSCULAR VOLUME 85 fl (80-97); MONOCYTES % (AUTO) 4.4 % (3-13); PLATELET COUNT 228 10^3/uL (150-450); RED BLOOD COUNT 3.42 10^6/uL (3.72-5.28); RED CELL DISTRIBUTION WIDTH 16.3 % (11.5-14.0); SEGMENTED NEUTROPHILS % (AUTO) 81.7 % (42-78); TOTAL CELLS COUNTED % (AUTO) 100 %; WHITE BLOOD COUNT 15.1 10^3/uL (4.0-10.5)
[2020-04-02 06:10] LABS: ANION GAP 9 (5-19); BLOOD UREA NITROGEN 48 mg/dL (7-20); CALCIUM 9.3 mg/dL (8.4-10.2); CARBON DIOXIDE 30 mmol/L (22-30); CHLORIDE 105 mmol/L (98-107); GLUCOSE 120 mg/dL (75-110); POTASSIUM 3.9 mmol/L (3.6-5.0)
[2020-04-02] MEDS: INSULIN LISPRO 100 UNIT/ML 3 ML VIAL SUBCUT SCH ×4 (09:37→22:28)
[2020-04-02] MEDS ORDERED: BUSPIRONE HCL 10 MG TABLET PO SCH (10:00)
[2020-04-02] MEDS: BUSPIRONE HCL 10 MG TABLET PO SCH ×2 (11:04→21:06)
[2020-04-02] MEDS: ASPIRIN 81 MG TABLET, CHEWABLE PO SCH (11:38)
[2020-04-02] MEDS: CITALOPRAM HYDROBROMIDE 20 MG TABLET PO SCH (11:39)
[2020-04-02] MEDS: CARVEDILOL 3.125 MG TABLET PO SCH (11:39)
[2020-04-02] MEDS: MAGNESIUM OXIDE 400 MG TABLET PO SCH ×2 (11:39→17:00)
[2020-04-02] MEDS: GABAPENTIN 300 MG CAPSULE PO SCH ×3 (11:40→17:00)
[2020-04-02] MEDS ORDERED: NORMAL SALINE 1000 ML 1,000 ML IV ONE (18:57)
[2020-04-02] MEDS ORDERED: CEFTRIAXONE 1 GM/D5W RTU 1 GM/50 ML RTUPB IV SCH (19:30)
--- NOTE | 2020-04-02 19:35 | PDOC PROGRESS REPORT ---
Subjective Progress Note for:: 04/02/20 Subjective:: Feeling much better today. Endorses dysuria for several days prior to admission. Per , she is back to her baseline mental status. Reason For Visit: ALTERED MENTAL STATUS SEPSIS UTI Physical Exam Vital Signs: Temp Pulse Resp BP Pulse Ox 98.2 F 70 18 85/37 L 96 04/02/20 12:08 04/02/20 12:08 04/02/20 12:08 04/02/20 12:08 04/02/20 12:08 Intake & Output 04/01/20 04/02/20 04/03/20 06:59 06:59 06:59 Intake Total 1720 550 Output Total 2 Balance 1718 550 Weight 68.5 kg Additional comments: General: obese woman in NAD Neuro: awake, alert, oriented x4 Head: normocephalic, atraumatic Eyes: anicteric sclera, no nystagmus ENT: moist mucus membranes, no oropharyngeal erythema/exudate Neck: no lymphadenopathy, no JVD Lungs: clear to auscultation bilaterally anteriorly, normal work of breathing Heart: regular rate and rhythm, no murmurs/rubs/gallops Abdomen: obese, normoactive bowel sounds, soft, non-tender, non-distended : no CVA tenderness, no suprapubic tenderness Extremities: R BKA well healed, more recent L AKA with riddhi and without signs of infection Skin: no rash Results Laboratory Results: 04/02/20 04:52 04/02/20 04:52 04/02/20 04/02/20 04/02/20 04:52 04:52 04:52 WBC 15.1 H RBC 3.42 L Hgb 9.7 L Hct 29.1 L MCV 85 MCH 28.2 MCHC 33.2 RDW 16.3 H Plt Count 228 Seg Neutrophils % 81.7 H Sodium 143.5 Potassium 3.9 Chloride 105 Carbon Dioxide 30 Anion Gap 9 BUN 48 H Creatinine 1.21 Est GFR ( Amer) 57 L Glucose 120 H Calcium 9.3 Magnesium 2.3 TSH 1.39 04/01/20 13:45 Troponin I 0.023 NT-Pro-B Natriuret Pep 6810 H Impressions: Head CT 04/01/20 00:00 IMPRESSION: Sinus disease as described. No acute intracranial imaging findings. EVIDENCE OF ACUTE STROKE: NO. Chest X-Ray 04/01/20 14:06 IMPRESSION: No evidence of acute cardiopulmonary abnormality. Assessment and Plan - Diagnosis (1) AMS (altered mental status) Qualifiers: Altered mental status type: delirium Qualified Code(s): R41.0 - Disorien tation, unspecified Is this a current diagnosis for this admission?: Yes (2) Acute urinary tract infection Is this a current diagnosis for this admission?: Yes (3) Klebsiella pneumoniae infection Is this a current diagnosis for this admission?: Yes (4) SIRS due to Gram-negative infection Is this a current diagnosis for this admission?: Yes - Plan Summary Summary: Ms. Indra Decker is a 49 year old woman with paroxysmal atrial fibrillation s/p ablation in 2009 on Xarelto, CHF, DVT, HTN, HLD, and insulin dependent DM2 c/b CKD, CAD s/p three-vessel CABG in 2009, and PAD s/p right BKA and left AKA who presents from subacute rehab due to altered mental status. Nursing facility staff note that, at baseline, Ms. Decker is alert and oriented x4, speaks normally and has been excelling with PT. Beginning yesterday, they noticed an abrupt change in her mental status - specifically, that she was suddenly very slow to respond, looked "dazed" and was not following instructions properly. Today, she appeared flushed and diaphoretic to staff, but did not complain of any pain or discomfort. Delirium due to Acute Klebsiella UTI: resolved, plan to DC tomorrow - urine culture growing Klebsiella, byrd-sensitive - BCx x2 - continue antibiotic therapy with ceftriaxone Atrial Fibrillation - restart home Xarelto - rate controlled - Time Time Spent with patient: 25-34 minutes Anticipated Discharge Disposition: Group Home Facility Anticipated Discharge Timeframe: within 24 hours
[2020-04-02] MEDS: ATORVASTATIN CALCIUM 80 MG TABLET PO SCH (21:06)
[2020-04-02] MEDS: TRAZODONE HCL 50 MG TABLET PO SCH (21:06)
[2020-04-02] MEDS: INSULIN GLARGINE,HUM.REC.ANLOG 1,000 UNIT/10 ML VIAL SUBCUT SCH (22:28)
[2020-04-02] MEDS: ONDANSETRON HCL INJ/PF 4 MG/2 ML SDV IV PRN (22:36)
[2020-04-02] MEDS ORDERED: CYCLOBENZAPRINE HCL 10 MG TABLET PO SCH (23:15)
--- NOTE | 2020-04-03 01:22 | CDI QUERY ---
<KADE WEBER - Last Filed: 04/03/20 01:21> CDI Query CDI Review: We are seeking further clarification of documentation to reflect the severity of illness of your patient. Per H&P: AMS with Concern for Sepsis: mild hypoxemia, leukocytosis with L shift, and new AMS concerning for underlying infection. Temp Pulse Resp BP Pulse Ox ? 76 14 119/63 94 Abnormal Labs: WBC 22.5 BUN / CR 47 / 1.37 Glucose 208 Per Progress Notes: SIRS due to Gram-negative infection Is this a current diagnosis for this admission?: Yes Delirium due to Acute Klebsiella UTI: resolved, plan to DC tomorrow - urine culture growing Klebsiella, byrd-sensitive - BCx x2 - continue antibiotic therapy with ceftriaxone Based on your medical judgement, can you further clarify in the Progress Notes: Sepsis SIRS with acute organ dysfunction SIRS due to infectious process without sepsis Other unspecified Unable to determine Thank you for your consideration. FREDY Weber RN Clinical Plate Printer Physician Advisor <MICHI FONTENOT - Last Filed: 04/03/20 12:17> CDI Query CDI Review: SIRS due to infectious process without sepsis Agree with Query: Yes
--- NOTE | 2020-04-03 01:28 | CDI QUERY ---
<KADE WEBER - Last Filed: 04/03/20 01:27> CDI Query CDI Review: We are seeking further clarification of documentation to reflect the severity of illness of your patient. Per H&P: AMS with Concern for Sepsis: mild hypoxemia, leukocytosis with L shift, and new AMS concerning for underlying infection. Temp Pulse Resp BP Pulse Ox ? 76 14 119/63 94 Abnormal Labs: WBC 22.5 BUN / CR 47 / 1.37 Glucose 208 Per Progress Notes: Delirium due to Acute Klebsiella UTI: resolved, plan to DC tomorrow Based on your medical judgment, can you further clarify in the progress notes if any of the follow are a definite or suspected cause of delirium: Metabolic Encephalopathy Toxic Encephalopathy Another condition (please specify) Delirium without an underlying cause None of the above / Not applicable Thank you for your consideration. BRUCE WeberN RN Clinical Seam Taper Machine Physician Advisor [email or web address] <MICHI FONTENOT - Last Filed: 04/06/20 09:06> CDI Query CDI Review: Metabolic Encephalopathy was due to infection and resolved with treatment of UTI with IV antibiotics. Agree with Query: Yes
[2020-04-03] MEDS: ONDANSETRON HCL INJ/PF 4 MG/2 ML SDV IV PRN (02:45)
[2020-04-03] MEDS: OXYCODONE-ACETAMINOPHEN 5-325 MG TABLET PO PRN ×3 (03:43→12:26)
[2020-04-03] MEDS: PANTOPRAZOLE SODIUM 40 MG TABLET.DR PO SCH ×2 (05:34→16:28)
[2020-04-03 06:43] LABS: ABSOLUTE BASOPHILS # (AUTO) 0.1 10^3/uL (0.0-0.2); ABSOLUTE EOSINOPHILS # (AUTO) 0.4 10^3/uL (0.0-0.6); ABSOLUTE LYMPHOCYTES (AUTO) 1.3 10^3/uL (0.5-4.7); ABSOLUTE MONOCYTES (AUTO) 0.5 10^3/uL (0.1-1.4); ABSOLUTE NEUT (AUTO) 9.1 10^3/uL (1.7-8.2); BASOPHILS % (AUTO) 0.6 % (0-2); EOSINOPHILS % (AUTO) 3.2 % (0-6); HEMATOCRIT 25.4 % (36.0-47.0); HEMOGLOBIN 8.4 g/dL (12.0-15.5); LYMPHOCYTES % (AUTO) 11.8 % (13-45); MEAN CORPUSCULAR HGB CONC 33.2 g/dL (32.0-36.0); MEAN CORPUSCULAR VOLUME 84 fl (80-97); MONOCYTES % (AUTO) 4.5 % (3-13); PLATELET COUNT 200 10^3/uL (150-450); RED BLOOD COUNT 3.01 10^6/uL (3.72-5.28); RED CELL DISTRIBUTION WIDTH 16.3 % (11.5-14.0); SEGMENTED NEUTROPHILS % (AUTO) 79.9 % (42-78); TOTAL CELLS COUNTED % (AUTO) 100 %; WHITE BLOOD COUNT 11.4 10^3/uL (4.0-10.5)
[2020-04-03] MEDS: INSULIN LISPRO 100 UNIT/ML 3 ML VIAL SUBCUT SCH ×4 (07:45→21:46)
[2020-04-03] MEDS: BUSPIRONE HCL 10 MG TABLET PO SCH ×2 (09:56→21:13)
[2020-04-03] MEDS: CITALOPRAM HYDROBROMIDE 20 MG TABLET PO SCH (09:57)
[2020-04-03] MEDS: ASPIRIN 81 MG TABLET, CHEWABLE PO SCH (09:57)
[2020-04-03] MEDS: BACLOFEN 10 MG TABLET PO SCH ×4 (09:57→21:12)
[2020-04-03] MEDS: GABAPENTIN 300 MG CAPSULE PO SCH ×3 (09:57→21:12)
[2020-04-03] MEDS: MAGNESIUM OXIDE 400 MG TABLET PO SCH ×2 (09:57→17:34)
[2020-04-03] MEDS: CEFTRIAXONE 1 GM/D5W RTU 1 GM/50 ML RTUPB IV SCH (09:58)
[2020-04-03] MEDS ORDERED: ACETAMINOPHEN 325 MG TABLET PO PRN (13:05)
[2020-04-03] MEDS ORDERED: TRAZODONE HCL 50 MG TABLET PO PRN (13:05)
[2020-04-03] MEDS ORDERED: (PENDING PHARMACY ID) (Citalopram Hydrobromide [Celexa 40 Mg Tablet] 40 MG) PO SCH (13:15)
[2020-04-03] MEDS: MULTIVITAMIN TABLET PO SCH (14:24)
[2020-04-03] MEDS: ASCORBIC ACID 500 MG TABLET PO SCH (14:24)
[2020-04-03] MEDS: METOCLOPRAMIDE HCL 10 MG TABLET PO SCH (16:28)
[2020-04-03] MEDS: OXYCODONE HCL IR 5 MG TABLET PO PRN ×2 (17:35→23:59)
[2020-04-03] MEDS ORDERED: RIVAROXABAN 10 MG TABLET PO SCH (18:00)
--- NOTE | 2020-04-03 18:06 | PDOC PROGRESS REPORT ---
Subjective Progress Note for:: 04/03/20 Subjective:: She is feeling well. Dysuria is improving. Afebrile. No longer altered. Reason For Visit: ALTERED MENTAL STATUS SEPSIS UTI Physical Exam Vital Signs: Temp Pulse Resp BP Pulse Ox 99.1 F 72 18 111/51 L 99 04/03/20 10:36 04/03/20 15:00 04/03/20 10:36 04/03/20 10:36 04/03/20 10:36 Intake & Output 04/02/20 04/03/20 04/04/20 06:59 06:59 06:59 Intake Total 1720 1080 50 Output Total 2 Balance 1718 1080 50 Weight 68.5 kg 70.1 kg General appearance: PRESENT: no acute distress Eye exam: ABSENT: scleral icterus Throat exam: ABSENT: post pharyngeal erythema Neck exam: ABSENT: JVD Respiratory exam: PRESENT: clear to auscultation amaya, unlabored. ABSENT: crackles Cardiovascular exam: PRESENT: RRR GI/Abdominal exam: PRESENT: normal bowel sounds, soft Extremities exam: PRESENT: other - R BKA and L AKA Neurological exam: PRESENT: alert, awake, oriented to person, oriented to place, oriented to time, oriented to situation Psychiatric exam: PRESENT: appropriate affect Skin exam: PRESENT: warm Results Laboratory Results: 04/03/20 06:20 04/02/20 04:52 04/03/20 04/03/20 06:20 06:20 WBC 11.4 H RBC 3.01 L Hgb 8.4 L Hct 25.4 L MCV 84 MCH 28.0 MCHC 33.2 RDW 16.3 H Plt Count 200 Seg Neutrophils % 79.9 H Magnesium 2.2 04/01/20 15:06 Catheterized Urine Urine Culture - Final NO GROWTH 2 DAYS 04/01/20 13:45 Troponin I 0.023 NT-Pro-B Natriuret Pep 6810 H Impressions: Head CT 04/01/20 00:00 IMPRESSION: Sinus disease as described. No acute intracranial imaging findi ngs. EVIDENCE OF ACUTE STROKE: NO. Chest X-Ray 04/01/20 14:06 IMPRESSION: No evidence of acute cardiopulmonary abnormality. Assessment and Plan - Diagnosis (1) AMS (altered mental status) Qualifiers: Altered mental status type: delirium Qualified Code(s): R41.0 - Disorientation, unspecified Is this a current diagnosis for this admission?: Yes (2) Acute urinary tract infection Is this a current diagnosis for this admission?: Yes (3) Klebsiella pneumoniae infection Is this a current diagnosis for this admission?: Yes (4) SIRS due to Gram-negative infection Is this a current diagnosis for this admission?: Yes - Plan Summary Summary: Ms. Indra Decker is a 49 year old woman with paroxysmal atrial fibrillation s/p ablation in 2009 on Xarelto, CHF, DVT, HTN, HLD, and insulin dependent DM2 c/b CKD, CAD s/p three-vessel CABG in 2009, and PAD s/p right BKA and left AKA who presents from subacute rehab due to altered mental status. Nursing facility staff note that, at baseline, Ms. Decker is alert and oriented x4, speaks normally and has been excelling with PT. Beginning on the day prior to admission, they noticed an abrupt change in her mental status - specifically, that she was suddenly very slow to respond, looked "dazed" and was not following instructions properly. Delirium due to Acute Klebsiella UTI: resolved, plan to DC tomorrow back to SNF after COVID results (which is still pending) - urine culture growing Klebsiella, byrd-sensitive - BCx x2 - continue antibiotic therapy with ceftriaxone while inpatient Atrial Fibrillation - AC: Xarelto - rate controlled - Time Time Spent with patient: 35 or more minutes Anticipated Discharge Disposition: [facility] Anticipated Discharge Timeframe: within 24 hours
[2020-04-03] MEDS: CARVEDILOL 3.125 MG TABLET PO SCH (21:12)
[2020-04-03] MEDS: INSULIN GLARGINE,HUM.REC.ANLOG 1,000 UNIT/10 ML VIAL SUBCUT SCH (21:46)
[2020-04-03] MEDS ORDERED: ATORVASTATIN CALCIUM 80 MG TABLET PO SCH (22:00)
[2020-04-03] MEDS ORDERED: (PENDING PHARMACY ID) (Buspirone Hcl [Buspar 15 Mg Tablet] 7.5 MG) PO SCH (22:00)
[2020-04-04] MEDS: GABAPENTIN 300 MG CAPSULE PO SCH ×2 (06:27→14:06)
[2020-04-04] MEDS: PANTOPRAZOLE SODIUM 40 MG TABLET.DR PO SCH (06:27)
[2020-04-04] MEDS: OXYCODONE HCL IR 5 MG TABLET PO PRN ×2 (06:29→12:32)
[2020-04-04] MEDS: INSULIN LISPRO 100 UNIT/ML 3 ML VIAL SUBCUT SCH ×2 (08:21→12:32)
[2020-04-04] MEDS: CITALOPRAM HYDROBROMIDE 20 MG TABLET PO SCH (09:51)
[2020-04-04] MEDS: CARVEDILOL 3.125 MG TABLET PO SCH (09:51)
[2020-04-04] MEDS: CEFTRIAXONE 1 GM/D5W RTU 1 GM/50 ML RTUPB IV SCH (09:51)
[2020-04-04] MEDS: ASCORBIC ACID 500 MG TABLET PO SCH (09:52)
[2020-04-04] MEDS: MAGNESIUM OXIDE 400 MG TABLET PO SCH (09:52)
[2020-04-04] MEDS: METOCLOPRAMIDE HCL 10 MG TABLET PO SCH ×2 (09:52→12:32)
[2020-04-04] MEDS: MULTIVITAMIN TABLET PO SCH (09:52)
[2020-04-04] MEDS: BUSPIRONE HCL 10 MG TABLET PO SCH (09:52)
[2020-04-04] MEDS: BACLOFEN 10 MG TABLET PO SCH ×2 (09:52→14:06)
[2020-04-04] MEDS ORDERED: ASPIRIN 81 MG TABLET, ENT COATED PO SCH (10:00)
--- NOTE | 2020-04-04 11:07 | PDOC TRANSFER SUMMARY ---
Impression - Admit/DC Date/PCP Admission Date/Primary Care Provider: 04/01/20 15:36 MITESH CAICEDO MD Discharge Date: 04/04/20 - Discharge Diagnosis (1) AMS (altered mental status) Is this a current diagnosis for this admission?: Yes (2) Acute urinary tract infection Is this a current diagnosis for this admission?: Yes (3) Klebsiella pneumoniae infection Is this a current diagnosis for this admission?: Yes (4) SIRS due to Gram-negative infection Is this a current diagnosis for this admission?: Yes - Assessment Summary: Ms. Indra Decker is a 49 year old woman with paroxysmal atrial fibrillation s/p ablation in 2009 on Xarelto, CHF, DVT, HTN, HLD, and insulin dependent DM2 c/b CKD, CAD s/p three-vessel CABG in 2009, and PAD s/p right BKA and left AKA who presents from subacute rehab due to altered mental status. Nursing facility staf f note that, at baseline, Ms. Decker is alert and oriented x4, speaks normally and has been excelling with PT. Beginning on the day prior to admission, they noticed an abrupt change in her mental status - specifically, that she was suddenly very slow to respond, looked "dazed" and was not following instructions properly. Delirium due to Acute Klebsiella UTI: AMS resolved with treatment of UTI with antibiotics and IVF. Her urine culture grew Klebsiella, byrd-sensitive. She received 3 days of IV antibiotics (04/02-04/04) and will be discharged on an additional 2 days of oral antibiotics (04/05-04/06). After completion of antibiotics, she has been prescribed a single dose of Diflucan for prevention/treatment of vaginal candidiasis, which she reports she gets after antibiotic treatment. Otherwise, none of her home medications have been changed. She should continue ongoing PT/OT for her L AKA and follow up with surgery as outpatient to have surgical riddhi removed. - Additional Information Resuscitation Status: Full Code Discharge Diet: Cardiac, Diabetic Discharge Activity: Activity As Tolerated Referrals: MITESH CAICEDO MD [Primary Care Provider] - Follow up as needed Prescriptions: Cefdinir 300 mg PO BID #4 capsule Fluconazole [Diflucan 100 mg Tablet] 100 mg PO ONCE PRN #1 tablet PRN Reason: Home Medications: Aspirin [Adult Low Dose Aspirin EC] 81 mg PO DAILY 07/02/19 Buspirone HCl [Buspar 15 mg Tablet] 7.5 mg PO Q12 07/02/19 Carvedilol [Coreg 3.125 mg Tablet] 3.125 mg PO Q12 07/02/19 Citalopram Hydrobromide [Celexa 40 mg Tablet] 40 mg PO DAILY 07/02/19 Fenofibrate Nanocrystallized [Tricor 145 mg Tablet] 145 mg PO WBRKFST 07/02/19 Metoclopramide HCl [Reglan 10 mg Tablet] 5 mg PO AC 07/02/19 Oxycodone HCl [Oxy-Ir 5 mg Tablet] 10 mg PO Q6HP PRN 07/02/19 Pantoprazole Sodium [Protonix [address] Tablet] 40 mg PO DAILY 07/02/19 Trazodone HCl [Desyrel 50 mg Tablet] 50 mg PO HSP PRN 07/02/19 Atorvastatin Calcium [Lipitor 80 mg Tablet] 80 mg PO QHS tablet 07/04/19 Gabapentin [Neurontin 300 mg Capsule] 600 mg PO Q8 10/24/19 Nitroglycerin [Nitrostat 0.4 mg (1/150 Gr) Tabs 25/Bottle] 1 tab SL Q5MP PRN 10/24/19 Bumetanide [Bumex 1 mg Tablet] 2 mg PO BID 30 Days tablet 11/01/19 Acetaminophen [Tylenol 325 mg Tablet] 650 mg PO Q6HP PRN 04/01/20 Ascorbic Acid [Vitamin C 500 mg Tablet] 500 mg PO DAILY 04/01/20 Baclofen [Baclofen 10 mg Tablet] 10 mg PO QID 04/01/20 Ferrous Sulfate [Feosol 325 mg Tablet] 325 mg PO WBRKFST 04/01/20 Insulin Glargine,Hum.rec.anlog [Lantus Insulin 100 Unit/1 ml 10 ml] 20 units SQ DAILY 04/01/20 Insulin Regular, Human [Humulin R (Reg) Insulin 100 unit/mL] 8 units SQ AC 04/01/20 Losartan Potassium [Cozaar 25 mg Tablet] 25 mg PO DAILY 04/01/20 Magnesium Oxide [Mag-Ox 400 mg Tablet] 400 mg PO BID 04/01/20 Multivitamin [Multiple Vitamins] 1 tab PO DAILY 04/01/20 Rivaroxaban [Xarelto] 20 mg PO QPM 04/01/20 Sennosides/Docusate Sodium [Senna Plus 8.6-50 mg Tablet] 1 tab PO BID MDD HOLD FOR LOOSE STOOL 04/01/20 Spironolactone [Aldactone 25 mg Tablet] 25 mg PO DAILY 04/01/20 Cefdinir 300 mg PO BID #4 capsule 04/04/20 Fluconazole [Diflucan 100 mg Tablet] 100 mg PO ONCE PRN #1 tablet 04/04/20 History of Present Illiness History of Present Illness: Ms. Indra Decker is a 49 year old woman with paroxysmal atrial fibrillation s/p ablation in 2009 on Xarelto, CHF, DVT, HTN, HLD, and insulin dependent DM2 c/b CKD, CAD s/p three-vessel CABG in 2009, and PAD s/p right BKA and left AKA who presents from subacute rehab due to altered mental status. History obtained from chart, ED provider and nursing staff at her rehab facility due to AMS. Nursing facility staff note that, at baseline, Ms. Decker is alert and oriented x4, speaks normally and has been excelling with PT. Beginning yesterday, they noticed an abrupt change in her mental status - specifically, that she was suddenly very slow to respond, looked "dazed" and was not following instructions properly. Today, she appeared flushed and diaphoretic to staff, but did not complain of any pain or discomfort. Labs and urine culture were performed at her facility yesterday showed UCx with 20-30K GNR, so she was sent to the ED due to concern for possible UTI. She has had no recent medication changes. Everyone at her facility was tested for COVID on Sunday and were all negative. She has had no sick contacts. She has not had fever, hypotension, or other VS abnormalities. Physical Exam Vital Signs: Temp Pulse Resp BP Pulse Ox 98.5 F 65 19 105/61 93 04/04/20 10:00 04/04/20 08:00 04/04/20 08:00 04/04/20 08:00 04/04/20 08:00 Intake & Output 04/03/20 04/04/20 04/05/20 06:59 06:59 06:59 Intake Total 1080 1082 50 Balance 1080 1082 50 Weight 70.1 kg 72 kg Results Laboratory Results: WBC 11.4 10^3/uL (4.0-10.5) H 04/03/20 06:20 RBC 3.01 10^6/uL (3.72-5.28) L 04/03/20 06:20 Hgb 8.4 g/dL (12.0-15.5) L 04/03/20 06:20 Hct 25.4 % (36.0-47.0) L 04/03/20 06:20 MCV 84 fl (80-97) 04/03/20 06:20 MCH 28.0 pg (27.0-33.4) 04/03/20 06:20 MCHC 33.2 g/dL (32.0-36.0) 04/03/20 06:20 RDW 16.3 % (11.5-14.0) H 04/03/20 06:20 Plt Count 200 10^3/uL (150-450) 04/03/20 06:20 Lymph % (Auto) 11.8 % (13-45) L 04/03/20 06:20 [place]on % (Auto) 4.5 % (3-13) 04/03/20 06:20 Eos % (Auto) 3.2 % (0-6) 04/03/20 06:20 Baso % (Auto) 0.6 % (0-2) 04/03/20 06:20 Absolute Neuts (auto) 9.1 10^3/uL (1.7-8.2) H 04/03/20 06:20 Absolute Lymphs (auto) 1.3 10^3/uL (0.5-4.7) 04/03/20 06:20 Absolute Monos (auto) 0.5 10^3/uL (0.1-1.4) 04/03/20 06:20 Absolute Eos (auto) 0.4 10^3/uL (0.0-0.6) 04/03/20 06:20 Absolute Basos (auto) 0.1 10^3/uL (0.0-0.2) 04/03/20 06:20 Total Counted 100 04/01/20 13:45 Seg Neutrophils % 79.9 % (42-78) H 04/03/20 06:20 Seg Neuts % (Manual) 91 % (42-78) H 04/01/20 13:45 Band Neutrophils % 1 % (3-5) L 04/01/20 13:45 Lymphocytes % (Manual) 4 % (13-45) L 04/01/20 13:45 Atypical Lymphs % 1 % (0) 04/01/20 13:45 Monocytes % (Manual) 3 % (3-13) 04/01/20 13:45 Eosinophils % (Manual) 0 % (0-6) 04/01/20 13:45 Basophils % (Manual) 0 % (0-2) 04/01/20 13:45 Abs Neuts (Manual) 20.7 10^3/uL (1.7-8.2) H 04/01/20 13:45 Abs Lymphs (Manual) 1.1 10^3/uL (0.5-4.7) 04/01/20 13:45 Abs Monocytes (Manual) 0.7 10^3/uL (0.1-1.4) 04/01/20 13:45 Absolute Eos (Manual) 0.0 10^3/uL (0.0-0.6) 04/01/20 13:45 Abs Basophils (Manual) 0.0 10^3/uL (0.0-0.2) 04/01/20 13:45 Clumped Platelets PRESENT 04/01/20 13:45 Platelet Comment ADEQUATE 04/01/20 13:45 Anisocytosis 1+ 04/01/20 13:45 PT 16.2 SEC (11.4-15.4) H 04/01/20 13:45 INR 1.28 04/01/20 13:45 Fibrinogen 724 mg/dL (209-497) H 04/01/20 17:10 D-Dimer 0.65 ug/mL (0.00-0.50) H 04/01/20 17:10 Carbonic Acid 1.24 mmol/L (1.05-1.35) 04/01/20 17:10 HCO3/H2CO3 Ratio 23:1 04/01/20 17:10 ABG pH 7.46 (7.35-7.45) H 04/01/20 17:10 ABG pCO2 41.2 mmHg (35-45) 04/01/20 17:10 ABG pO2 145.2 mmHg (80-100) H 04/01/20 17:10 ABG HCO3 28.6 mmol/L (20-24) H 04/01/20 17:10 ABG Total CO2 29.8 mmol/L (21-25) H 04/01/20 17:10 ABG O2 Saturation 99.0 % (94-98) H 04/01/20 17:10 ABG Base Excess 4.4 mmol/L 04/01/20 17:10 VBG pH 7.44 (7.30-7.42) H 04/01/20 14:54 VBG pCO2 40.5 mmHg (35-63) 04/01/20 14:54 VBG HCO3 27.1 mmol/L (20-32) 04/01/20 14:54 VBG Base Excess 2.8 mmol/L 04/01/20 14:54 FiO2 2L 04/01/20 17:10 Sodium 143.5 mmol/L (137-145) 04/02/20 04:52 Potassium 3.9 mmol/L (3.6-5.0) 04/02/20 04:52 Chloride 105 mmol/L (98-107) 04/02/20 04:52 Carbon Dioxide 30 mmol/L (22-30) 04/02/20 04:52 Anion Gap 9 (5-19) 04/02/20 04:52 BUN 48 mg/dL (7-20) H 04/02/20 04:52 Creatinine 1.21 mg/dL (0.52-1.25) 04/02/20 04:52 Est GFR ( Amer) 57 (>60) L 04/02/20 04:52 Est GFR (MDRD) Non-Af 47 (>60) L 04/02/20 04:52 Glucose 120 mg/dL (75-110) H 04/02/20 04:52 POC Glucose 120 mg/dL (70-110) H 04/04/20 07:24 Hemoglobin A1c % 5.9 % (4.7-6.0) 04/02/20 04:52 Lactic Acid 0.9 mmol/L (0.7-2.1) 04/01/20 17:10 Calcium 9.3 mg/dL (8.4-10.2) 04/02/20 04:52 Magnesium 2.2 mg/dL (1.6-2.3) 04/03/20 06:20 Ferritin 308.00 ng/mL (11.1-264.0) H 04/01/20 17:10 Total Bilirubin 0.7 mg/dL (0.2-1.3) 04/01/20 17:10 Direct Bilirubin 0.3 mg/dL (0.0-0.4) 04/01/20 17:10 Neonat Total Bilirubin Not Reportable 04/01/20 17:10 Neonat Direct Bilirubin Not Reportable 04/01/20 17:10 Neonat Indirect Bili Not Reportable 04/01/20 17:10 AST 18 U/L (14-36) 04/01/20 17:10 ALT 8 U/L (<35) 04/01/20 17:10 Alkaline Phosphatase 55 U/L (38-126) 04/01/20 17:10 Ammonia < 8.7 umol/L (9-33) L 04/01/20 17:10 Troponin I 0.023 ng/mL 04/01/20 13:45 C-Reactive Protein 201.4 mg/L (<10.0) H 04/01/20 17:10 NT-Pro-B Natriuret Pep 6810 pg/mL (<125) H 04/01/20 13:45 Total Protein 6.6 g/dL (6.3-8.2) 04/01/20 17:10 Albumin 3.4 g/dL (3.5-5.0) L 04/01/20 17:10 TSH 1.39 uIU/mL (0.47-4.68) 04/02/20 04:52 Urine Opiates Screen NEGATIVE 04/01/20 15:06 Urine Methadone Screen NEGATIVE 04/01/20 15:06 Acetaminophen < 10 ug/mL (10-30) L 04/01/20 17:10 Ur Barbiturates Screen NEGATIVE 04/01/20 15:06 Ur Phencyclidine Scrn NEGATIVE 04/01/20 15:06 Ur Amphetamines Screen NEGATIVE 04/01/20 15:06 U Benzodiazepines Scrn NEGATIVE 04/01/20 15:06 Urine Cocaine Screen NEGATIVE 04/01/20 15:06 U Marijuana (THC) Screen NEGATIVE 04/01/20 15:06 Serum Alcohol < 10 mg/dL (NONE DETECTED) 04/01/20 17:10 COVID-19 Source NASOPHARYNGEAL 04/01/20 15:53 COVID-19 (ASHLEY) NOT DETECTED 04/01/20 15:53 04/01/20 13:45 Troponin I 0.023 NT-Pro-B Natriuret Pep 6810 H Impressions: Head CT 04/01/20 00:00 IMPRESSION: Sinus disease as described. No acute intracranial imaging findings. EVIDENCE OF ACUTE STROKE: NO. Chest X-Ray 04/01/20 14:06 IMPRESSION: No evidence of acute cardiopulmonary abnormality. Stroke Is this a Stroke Patient?: No Acute Heart Failure Is this a Heart Failure Patient?: No
[2020-04-04 12:26] VITALS: BP 115/53
== END 2020-04-04 14:30 | DRG 689 ==
LOC: ER 13:49 → EH 15:36 → 3N 22:30 → 5 04-04 06:59
PROVIDERS: ADMIT Hospitalist; ATTEND Hospitalist
DX: N39.0 Urinary tract infection, site not specified (principal); G93.41 Metabolic encephalopathy; R65.10 Systemic inflammatory response syndrome (SIRS) of non-infectious origin without acute organ dysfunction; I13.0 Hypertensive heart and chronic kidney disease with heart failure and stage 1 through stage 4 chronic kidney disease, or unspecified chronic kidney disease; D63.1 Anemia in chronic kidney disease; I50.9 Heart failure, unspecified; E11.22 Type 2 diabetes mellitus with diabetic chronic kidney disease; E11.51 Type 2 diabetes mellitus with diabetic peripheral angiopathy without gangrene; Z89.612 Acquired absence of left leg above knee; R41.82 Altered mental status, unspecified; B96.1 Klebsiella pneumoniae [K. pneumoniae] as the cause of diseases classified elsewhere; I48.0 Paroxysmal atrial fibrillation; N18.9 Chronic kidney disease, unspecified; I25.10 Atherosclerotic heart disease of native coronary artery without angina pectoris; E78.5 Hyperlipidemia, unspecified; J44.9 Chronic obstructive pulmonary disease, unspecified; K44.9 Diaphragmatic hernia without obstruction or gangrene; M19.90 Unspecified osteoarthritis, unspecified site; E66.9 Obesity, unspecified; R09.02 Hypoxemia; J32.9 Chronic sinusitis, unspecified; Z79.01 Long term (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 of anticoagulants; Z86.718 Personal history of other venous thrombosis and embolism; Z95.1 Presence of aortocoronary bypass graft; Z89.511 Acquired absence of right leg below knee; Z79.82 Long term (current) use of aspirin; Z79.4 Long term (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 of insulin; Z79.899 Other long term (current) drug therapy; I25.2 Old myocardial infarction; Z87.891 Personal history of nicotine dependence; Z83.3 Family history of diabetes mellitus; Z82.49 Family history of ischemic heart disease and other diseases of the circulatory system; Z88.8 Allergy status to other drugs, medicaments and biological substances
CPT/HCPCS: 36415; 70450; 71045; 80048; 80053; 80307; 81001; 82140; 82728; 82803; 82962; 83036; 83605; 83735; 83880; 84443; 84484; 85025; 85379; 85384; 85610; 86140; 87040; 87070; 87086; 87088; 87186; 87635; 93005; 93010; 94799; 99291; C9803; J0696; J1815; J2405; J3490; J7030

== ENCOUNTER 2020-05-17 14:21 | Inpatient (IN) | payer MEDICARE ==
--- NOTE | 2020-05-17 14:56 | ER Document Report ---
ED Medical Screen (RME) - General Stated Complaint: SHORTNESS OF BREATH Time Seen by Provider: 05/17/20 14:52 Primary Care Provider: MITESH CAICEDO MD [Primary Care Provider] - Follow up as needed Notes: Patient is a 49-year-old female who presents emergency department with a chief complaint of shortness of breath. Patient reports on Sunday developing shortness of breath with vomiting. She states she was seen at [facility] in the emergency department was given a shot of Phenergan. Patient reports she was tested for Covid but has not received the results yet. Patient reports she continues to have some shortness of breath. Patient does have a significant cardiac history as well as atrial fibrillation. Patient denies fever. Denies sick contacts. TRAVEL OUTSIDE OF THE [place] IN LAST 30 DAYS: No - Related Data Allergies/Adverse Reactions: amlodipine Allergy (Severe, Verified 04/01/20 15:14) Hallucinations isosorbide [From Imdur] Allergy (Intermediate, Verified 04/01/20 15:14) RASH zolpidem [From Ambien] Adverse Reaction (Severe, Verified 04/01/20 15:14) Hallucinations Past Medical History - Past Medical History Cardiac Medical History: Reports: Hx Atrial Fibrillation, Hx Congestive Heart Failure, Hx Coronary Artery Disease, Hx DVT, Hx Heart Attack - x3 per patient, Hx Hypercholesterolemia, Hx Hypertension, Hx Peripheral Vascular Disease Pulmonary Medical History: Reports: Hx Bronchitis, Hx COPD, Hx Pneumonia Neurological Medical History: Denies: Hx Migraine, Hx Seizures Endocrine Medical History: Reports: Hx Diabetes Mellitus Type 2. Denies: Hx Diabetes Mellitus Type 1, Hx Hyperthyroidism, Hx Hypothyroidism Renal/ Medical History: Reports: Hx Hemodialysis - Short-term for fluid overload only, Hx Kidney Stones, Hx Renal Insufficiency. Denies: Hx Peritoneal Dialysis GI Medical History: Reports: Hx Gastroesophageal Reflux Disease, Hx Hiatal Hernia, Hx Irritable Bowel. Denies: Hx Cirrhosis, Hx Crohn's Disease, Hx Hepati tis, Hx Ulcerative Colitis Musculoskeltal Medical History: Reports Hx Arthritis, Denies Hx Fibromyalgia, Denies Hx Gout, Reports Hx Musculoskeletal Deformity, Reports Hx Musculoskeletal Trauma Skin Medical History: Reports Hx Cellulitis, Denies Hx Eczema, Denies Hx Psoriasis Psychiatric Medical History: Reports: Hx Anxiety, Hx Depression Infectious Medical History: Denies: Hx Hepatitis Past Surgical History: Reports: Hx Abdominal Surgery, Hx Cardiac Catheterization, Hx Cardiac Surgery - CABG, Hx Section - x2, Hx Cholecystectomy, Hx Coronary Artery Bypass Graft - x3, Hx Herniorrhaphy - Ventral hernia, Hx Orthopedic Surgery - Knee surgery, Hx Tubal Ligation, Hx Vascular Surgery - Left iliofemoral bypass, Other - Peripheral nerve stimulator implantation - Immunizations Immunizations up to date: Yes Hx Diphtheria, Pertussis, Tetanus Vaccination: Yes Physical Exam - Vital signs Vitals: Temp Pulse Resp BP Pulse Ox 98.1 F 65 22 H 96/54 L 95 05/17/20 14:58 05/17/20 14:58 05/17/20 14:58 05/17/20 14:58 05/17/20 14:58 Course - Re-evaluation Re-evalutation: 05/17/20 15:04 We will initiate basic labs. Patient sitting upright in wheelchair. Patient reports that her blood pressure does run slightly low and that a systolic in the 90s is not abnormal for her. - Vital Signs Vital signs: Temp Pulse Resp BP Pulse Ox 98.1 F 65 22 H 96/54 L 95 05/17/20 14:58 05/17/20 14:58 05/17/20 14:58 05/17/20 14:58 05/17/20 14:58 Doctor's Discharge - Discharge Referrals: MITESH CAICEDO MD [Primary Care Provider] - Follow up as needed
--- NOTE | 2020-05-17 16:07 | ER Document Report ---
ED General - General Stated Complaint: SHORTNESS OF BREATH Time Seen by Provider: 05/17/20 14:52 Primary Care Provider: MITESH CAICEDO MD [Primary Care Provider] - Follow up as needed Notes: Patient is a 49-year-old white female with a history of COPD, type 2 diabetes mellitus, three-vessel CABG, prior acute aortic occlusion proceeding a right below the knee amputation, status post left [id number] amputation who presents to the emergency department day with a chief complaint of shortness of breath. Patient states that it started on Sunday. She states that she went to another emergency department and was worked up. She states she had a negative chest x-ray and is pending a COVID-19 swab that she should know the results in a day or 2. He states the shortness of breath has not gotten worse or better just persisted. She states it is associated with some nausea and vomiting. She denies any diarrhea or fever. No recent travel or known sick contacts. No abdominal pain. No extremity pains. No chest pain. Patient does add that she takes Eliquis related to the prior acute arterial occlusion. TRAVEL OUTSIDE OF THE [place] IN LAST 30 DAYS: No - Related Data Allergies/Adverse Reactions: amlodipine Allergy (Severe, Verified 04/01/20 15:14) Hallucinations isosorbide [From Imdur] Allergy (Intermediate, Verified 04/01/20 15:14) RASH zolpidem [From Ambien] Adverse Reaction (Severe, Verified 04/01/20 15:14) Hallucinations Past Medical History - Social History Smoking Status: Unknown if Ever Smoked Family History: CAD, CVA, DM, Hypertension, Malignancy, Other - Kidney disease - Past Medical History Cardiac Medical History: Reports: Hx Atrial Fibrillation, Hx Congestive Heart Failure, Hx Coronary Artery Disease, Hx DVT, Hx Heart Attack - x3 per patient, Hx Hypercholesterolemia, Hx Hypertension, Hx Peripheral Vascular Disease Pulmonary Medical History: Reports: Hx Bronchitis, Hx COPD, Hx Pneumonia Neurological Medical History: Denies: Hx Migraine, Hx Seizures Endocrine Medical History: Reports: Hx Diabetes Mellitus Type 2. Denies: Hx Di abetes Mellitus Type 1, Hx Hyperthyroidism, Hx Hypothyroidism Renal/ Medical History: Reports: Hx Hemodialysis - Short-term for fluid overload only, Hx Kidney Stones, Hx Renal Insufficiency. Denies: Hx Peritoneal Dialysis GI Medical History: Reports: Hx Gastroesophageal Reflux Disease, Hx Hiatal Hernia, Hx Irritable Bowel. Denies: Hx Cirrhosis, Hx Crohn's Disease, Hx Hepatitis, Hx Ulcerative Colitis Musculoskeletal Medical History: Reports Hx Arthritis, Denies Hx Fibromyalgia, Denies Hx Gout, Reports Hx Musculoskeletal Deformity, Reports Hx Musculoskeletal Trauma Skin Medical History: Reports Hx Cellulitis, Denies Hx Eczema, Denies Hx Psoriasis Psychiatric Medical History: Reports: Hx Anxiety, Hx Depression Infectious Medical History: Denies: Hx Hepatitis Past Surgical History: Reports: Hx Abdominal Surgery, Hx Cardiac Catheterization, Hx Cardiac Surgery - CABG, Hx Section - x2, Hx Cholecystectomy, Hx Coronary Artery Bypass Graft - x3, Hx Herniorrhaphy - Ventral hernia, Hx Orthopedic Surgery - Knee surgery, Hx Tubal Ligation, Hx Vascular Surgery - Left iliofemoral bypass, Other - Peripheral nerve stimulator implantation - Immunizations Immunizations up to date: Yes Hx Diphtheria, Pertussis, Tetanus Vaccination: Yes Hx Pneumococcal Vaccination: 07/23/09 Review of Systems - Review of Systems Constitutional: denies: Fever EENT: denies: Nose pain Cardiovascular: denies: Syncope Respiratory: Short of breath Gastrointestinal: denies: Poor appetite Genitourinary: denies: Incontinence Female Genitourinary: denies: Heavy/abnormal periods Musculoskeletal: denies: Joint swelling Skin: denies: Dryness Hematologic/Lymphatic: denies: Easy bruising Neurological/Psychological: denies: Weakness Physical Exam - Vital signs Vitals: Temp Pulse Resp BP Pulse Ox 98.1 F 65 22 H 96/54 L 95 05/17/20 14:58 05/17/20 14:58 05/17/20 14:58 05/17/20 14:58 05/17/20 14:58 - General General appearance: Appears well, Alert In distress: None - HEENT Head: Normocephalic, Atraumatic Eyes: Normal Conjunctiva: Normal Extraocular movements intact: Yes Neck: Supple - Respiratory Respiratory status: No respiratory distress Chest status: Nontender Breath sounds: Normal Chest palpation: Normal - Cardiovascular Rhythm: Regular Heart sounds: Normal auscultation - Abdominal Inspection: Normal Distension: No distension Bowel sounds: Normal Tenderness: Nontender Organomegaly: No organomegaly - Neurological Neuro grossly intact: Yes Cognition: Normal Orientation: AAOx4 - Psychological Associated symptoms: Normal affect, Normal mood - Skin Skin Temperature: Warm Skin Moisture: Dry Skin Color: Normal Course - Re-evaluation Re-evalutation: 05/17/20 19:57 Patient with a hemoglobin of 7.2. She reports has been anemic in the past lowest of 4.6. She denies any known significant bleeding sources but adds that she has hemorrhoids and they are bleeding some earlier in the week. She denies any known blood in the stool or in her vomitus. 05/17/20 19:57 Hematocrit 21.6. RDW 18.5. PT at 17.1. Potassium slightly elevated at 5.7. She had a bump in her creatinine is 2.6 from her slightly elevated baseline around 1.3-1.5 on average. Her proBNP is chronically elevated. Flu swabs are negative. X-ray showing cardiomegaly, CT of the chest showing cardiomegaly with some suspected atelectasis in the left base. Patient is pending a COVID-19 swab from another facility that should be resulted within a day or 2. 05/17/20 19:58 05/17/20 19:58 05/17/20 19:58 05/17/20 19:58 05/17/20 19:59 05/17/20 19:59 EKG is sinus at 65 bpm. Normal intervals. Suspected old inferior infarct. No STEMI. Interpreted by myself in conjunction with ED attending. Troponin chronically elevated likely related to demand mismatch ischemia from CHF. Patient had a positive guaiac. Related to the anemia requiring transfusion, h ypotension, shortness of breath and blood per rectum along with the acute kidney injury patient we will plan for admission. I called and spoke with Dr. Macedo, discussed the patient and work-up with him. He will evaluate the patient in the emergency department for admission. Patient is currently stable and on the monitor at this time. - Vital Signs Vital signs: Temp Pulse Resp BP Pulse Ox 98.7 F 67 14 99/55 L 97 05/17/20 21:17 05/17/20 21:17 05/17/20 21:17 05/17/20 21:17 05/17/20 21:17 - Laboratory Result Diagrams: 05/17/20 16:18 05/17/20 16:18 Laboratory results interpreted by me: 05/17/20 05/17/20 05/17/20 16:18 16:18 16:18 RBC 2.58 L Hgb 7.2 L Hct 21.6 L RDW 18.5 H PT Sodium 132.7 L Potassium 5.7 H Chloride 93 L BUN 88 H Creatinine 2.60 H Est GFR ( Amer) 24 L Est GFR (MDRD) Non-Af 19 L Direct Bilirubin 0.5 H NT-Pro-B Natriuret Pep 31154 H Crossmatch 05/17/20 05/17/20 16:18 16:58 RBC Hgb Hct RDW PT 17.1 H Sodium Potassium Chloride BUN Creatinine Est GFR ( Amer) Est GFR (MDRD) Non-Af Direct Bilirubin NT-Pro-B Natriuret Pep Crossmatch See Detail Discharge - Discharge Clinical Impression: Symptomatic anemia, DANNI (acute kidney injury), Blood per rectum, History of COPD, Shortness of breath Congestive heart failure Qualifiers: Heart failure type: unspecified Heart failure chronicity: unspecified Qualified Code(s): I50.9 - Heart failure, unspecified Condition: Serious Disposition: ADMITTED INPATIENT Admitting Provider: Dr. Macedo Unit Admitted: Telemetry Referrals: MITESH CAICEOD MD [Primary Care Provider] - Follow up as needed
--- NOTE | 2020-05-17 16:16 | RADIOLOGY REPORT (SQ) ---
EXAM DESCRIPTION: CHEST SINGLE VIEW IMAGES COMPLETED DATE/TIME: 05/17/2020 3:53 pm REASON FOR STUDY: SHORTNES OF BREATH COMPARISON: 04/01/2020 EXAM PARAMETERS: NUMBER OF VIEWS: One view. TECHNIQUE: Single frontal radiographic view of the chest acquired. RADIATION DOSE: NA LIMITATIONS: None. FINDINGS: LUNGS AND PLEURA: No opacities, masses or pneumothorax. No pleural effusion. MEDIASTINUM AND HILAR STRUCTURES: No masses. Contour normal. HEART AND VASCULAR STRUCTURES: Heart is enlarged. No failure. BONES: No acute findings. HARDWARE: Sternotomy wires are in place. OTHER: No other significant finding. IMPRESSION: Cardiomegaly. No acute findings. TECHNICAL DOCUMENTATION: JOB ID: [id number] 2010 [employer]- All Rights Reserved Reading location - IP/workstation name: [email or web address]
[2020-05-17 16:35] LABS: ABSOLUTE BASOPHILS # (AUTO) 0.1 10^3/uL (0.0-0.2); ABSOLUTE EOSINOPHILS # (AUTO) 0.2 10^3/uL (0.0-0.6); ABSOLUTE MONOCYTES (AUTO) 0.4 10^3/uL (0.1-1.4); ABSOLUTE NEUT (AUTO) 3.6 10^3/uL (1.7-8.2); BASOPHILS % (AUTO) 1.1 % (0-2); EOSINOPHILS % (AUTO) 3.1 % (0-6); HEMATOCRIT 21.6 % (36.0-47.0); LYMPHOCYTES % (AUTO) 19.4 % (13-45); MEAN CORPUSCULAR HEMOGLOBIN 27.8 pg (27.0-33.4); MEAN CORPUSCULAR HGB CONC 33.2 g/dL (32.0-36.0); MEAN CORPUSCULAR VOLUME 84 fl (80-97); MONOCYTES % (AUTO) 8.2 % (3-13); PLATELET COUNT 234 10^3/uL (150-450); RED BLOOD COUNT 2.58 10^6/uL (3.72-5.28); RED CELL DISTRIBUTION WIDTH 18.5 % (11.5-14.0); SEGMENTED NEUTROPHILS % (AUTO) 68.2 % (42-78); TOTAL CELLS COUNTED % (AUTO) 100 %; WHITE BLOOD COUNT 5.2 10^3/uL (4.0-10.5)
[2020-05-17 16:37] LABS: HEMOGLOBIN 7.2 g/dL (12.0-15.5)
[2020-05-17] MEDS ORDERED: NORMAL SALINE 250 ML IV PRN ×2 (16:41)
[2020-05-17 16:52] LABS: ALBUMIN 3.7 g/dL (3.5-5.0); ALKALINE PHOSPHATASE 40 U/L (38-126); ANION GAP 14 (5-19); ASPARTATE AMINO TRANSFERASE 24 U/L (14-36); BILIRUBIN,DIRECT 0.5 mg/dL (0.0-0.4); BILIRUBIN,TOTAL 0.6 mg/dL (0.2-1.3); BLOOD UREA NITROGEN 88 mg/dL (7-20); CALCIUM 8.7 mg/dL (8.4-10.2); CARBON DIOXIDE 26 mmol/L (22-30); CHLORIDE 93 mmol/L (98-107); GLUCOSE 98 mg/dL (75-110); POTASSIUM 5.7 mmol/L (3.6-5.0); TOTAL PROTEIN 6.6 g/dL (6.3-8.2)
[2020-05-17 17:04] LABS: TROPONIN I 0.017 ng/mL
[2020-05-17 17:14] LABS: INTERNATIONAL RATION (INR) 1.38; PROTHROMBIN TIME 17.1 SEC (11.4-15.4)
[2020-05-17 17:15] LABS: PARTIAL THROMBOPLASTIN TIME 35.1 SEC (23.5-35.8)
--- NOTE | 2020-05-17 17:24 | EKG REPORT ---
SEVERITY:- DEFECTIVE ECG - SINUS OR ECTOPIC ATRIAL RHYTHM LEFT ATRIAL ABNORMALITY PROBABLE INFERIOR INFARCT, AGE INDETERMINATE ANTEROLATERAL INFARCT, OLD : Confirmed by: Rojas Jo MD 17-May-2020 17:24:13
[2020-05-17 17:32] LABS: A TYPE INFLUENZA AG NEGATIVE (NEGATIVE); B INFLUENZA AG NEGATIVE (NEGATIVE)
--- NOTE | 2020-05-17 18:37 | RADIOLOGY REPORT (SQ) ---
EXAM DESCRIPTION: CT CHEST WITHOUT IMAGES COMPLETED DATE/TIME: 05/17/2020 5:49 pm REASON FOR STUDY: sob COMPARISON: Chest x-ray 05/17/2020 TECHNIQUE: CT scan performed of the chest without intravenous contrast. Images reviewed with lung, soft tissue and bone windows. Reconstructed coronal and sagittal MPR images reviewed. All images st ored on PACS. All CT scanners at this facility use dose modulation, iterative reconstruction, and/or weight based d osing when appropriate to reduce radiation dose to as low as reasonably achievable (ALARA). [facility]: Dose Right [facility]: CareDose [facility]: Dose Right [facility]: Teradose 4D [facility]: Smart [employer] RADIATION DOSE: CT Rad equipment meets quality standard of care and radiation dose reduction techniq ues were employed. CTDIvol: 13.9 mGy. DLP: 515 mGy-cm. mGy. LIMITATIONS: No technical limitations. FINDINGS: LUNGS AND PLEURA: Very limited opacification the posterior aspect of the left lower lobe. HILAR AND MEDIASTINAL STRUCTURES: There multiple small nonspecific mediastinal nodes. HEART AND VASCULAR STRUCTURES: No aneurysm. No pericardial effusion. Prior CABG. Cardiomegaly. UPPER ABDOMEN: No significant findings. Limited exam. THYROID AND OTHER SOFT TISSUES: No masses. No adenopathy. BONES: No significant finding. HARDWARE: Sternotomy wires. OTHER: No other significant findings. IMPRESSION: 1. Cardiomegaly with no sumeet pulmonary edema. 2. Very limited opacification in the left lower lobe. Cannot exclude very limited pneumonia versus atelectasis. 3. There are multiple small mediastinal nodes. TECHNICAL DOCUMENTATION: JOB ID: [id number] Quality ID # [id number]: Final reports with documentation of one or more dose reduction techniques (e.g., Au tomated exposure control, adjustment of the mA and/or kV according to patient size, use of iterative reconstruction technique) 2010 [employer]- All Rights Reserved Reading location - IP/workstation name: [email or web address]
[2020-05-17] MEDS ORDERED: NORMAL SALINE 500 ML IV ONE (18:53)
--- NOTE | 2020-05-17 21:11 | EKG REPORT ---
SEVERITY:- ABNORMAL ECG - SINUS RHYTHM NONSPECIFIC INTRAVENTRICULAR CONDUCTION DELAY MINIMAL ST DEPRESSION, LATERAL LEADS : Confirmed by: Rojas Jo MD 17-May-2020 21:11:22
[2020-05-17] MEDS ORDERED: DEXTROSE 50%-WATER 25 GM/50 ML DISP.SYRIN IV PRN ×2 (22:14)
[2020-05-17] MEDS ORDERED: GLUCAGON,HUMAN RECOMB 1 MG INJ IM PRN (22:14)
[2020-05-17] MEDS ORDERED: DEXTROSE 40% GEL 15 GM TUBE PO PRN ×2 (22:14)
--- NOTE | 2020-05-17 22:26 | PDOC H&P ---
History of Present Illness Admission Date/PCP: MITESH CAICEDO MD 05/17/2020 Patient complains of: Shortness of breath, nausea, vomiting History of Present Illness: HELDER SERNA is a 49 year old female with multiple comorbidities including A. fib status post ablation, congestive heart failure, DVT, hypertension, hyperlipidemia, type II DM, CAD s/p CABG, PAD status post right BKA and left AKA who now presents to the emergency department complaining of 3 days duration of shortness of breath with associated cough productive of scanty yellowish sputum. She reports that she was seen at [facility] on Sunday for similar complaint and she was given medication for nausea and vomiting and was sent back home after being tested for COVID-19(result is pending). Starting this morning she reported that the shortness of breath got worse and she has been feeling ge nerally weak, and also endorses nausea and vomiting of ingested matter. She reports that she has a history of hemorrhoid and has been noticing bright red blood when she wipes the past week but denies any history of melena, hematochezia or hematemesis. She also reports a remote history of GI ulcer but denies any current abdominal pain and denies taking [id number] medications. She denies fever or chills. The emergency department stool guaiac was positive and patient was given 2 units of packed RBC. Past Medical History Cardiac Medical History: Reports: Atrial Fibrillation, Congestive Heart Failure, Coronary Artery Disease, DVT, Myocardial Infarction - x3 per patient, Hyperlipidema, Hypertension, Peripheral Vascular Disease Pulmonary Medical History: Reports: Bronchitis, Chronic Obstructive Pulmonary Disease (COPD), Pneumonia Neurological Medical History: Denies: Migraine, Seizures Endocrine Medical History: Reports: Diabetes Mellitus Type 2 Denies: Diabetes Mellitus Type 1, Hyperthyroidism, Hypothyroidism GI Medical History: Reports: Gastroesophageal Reflux Disease, Hiatal Hernia Denies: Cirrhosis, Crohn's Disease, Hepatitis, Ulcerative Colitis Musculoskeltal Medical History: Reports: Arthritis Denies: Fibromyalgia, Gout Skin Medical History: Denies: Eczema, Psoriasis Psychiatric Medical History: Reports: Depression Hematology: Reports: Anemia Denies: Bleeding Tendencies Past Surgical History Past Surgical History: Reports: Amputation - Right BKA, Left AKA, Cardiac Catheterization, Section - x2, Cholecystectomy, Coronary Artery Bypass Graft - x3, Herniorrhaphy - Ventral hernia, Orthopedic Surgery - Knee surgery, Tubal Ligation, Vascular Surgery - Left iliofemoral bypass, Other - Peripheral nerve stimulator implantation Social History Information Source: Patient Lives with: Family Smoking Status: Former Smoker Frequency of Alcohol Use: None Hx Recreational Drug Use: No Drugs: None Hx Prescription Drug Abuse: No - Advance Directive Resuscitation Status: Full Code Family History Family History: CAD, CVA, DM, Hypertension, Malignancy, Other - Kidney disease Parental Family History Reviewed: Yes Children Family History Reviewed: Yes Sibling(s) Family History Reviewed.: Yes Medication/Allergy Home Medications: Aspirin [Adult Low Dose Aspirin EC] 81 mg PO DAILY 07/02/19 Buspirone HCl [Buspar 15 mg Tablet] 7.5 mg PO Q12 07/02/19 Carvedilol [Coreg 3.125 mg Tablet] 3.125 mg PO Q12 07/02/19 Citalopram Hydrobromide [Celexa 40 mg Tablet] 40 mg PO DAILY 07/02/19 Fenofibrate Nanocrystallized [Tricor 145 mg Tablet] 145 mg PO WBRKFST 07/02/19 Metoclopramide HCl [Reglan 10 mg Tablet] 5 mg PO AC 07/02/19 Oxycodone HCl [Oxy-Ir 5 mg Tablet] 10 mg PO Q6HP PRN 07/02/19 Pantoprazole Sodium [Protonix [address] Tablet] 40 mg PO DAILY 07/02/19 Trazodone HCl [Desyrel 50 mg Tablet] 50 mg PO HSP PRN 07/02/19 Atorvastatin Calcium [Lipitor 80 mg Tablet] 80 mg PO QHS tablet 07/04/19 Gabapentin [Neurontin 300 mg Capsule] 600 mg PO Q8 10/24/19 Nitroglycerin [Nitrostat 0.4 mg (1/150 Gr) Tabs 25/Bottle] 1 tab SL Q5MP PRN 10/24/19 Bumetanide [Bumex 1 mg Tablet] 2 mg PO BID 30 Days tablet 11/01/19 Acetaminophen [Tylenol 325 mg Tablet] 650 mg PO Q6HP PRN 04/01/20 Ascorbic Acid [Vitamin C 500 mg Tablet] 500 mg PO DAILY 04/01/20 Baclofen [Baclofen 10 mg Tablet] 10 mg PO QID 04/01/20 Ferrous Sulfate [Feosol 325 mg Tablet] 325 mg PO WBRKFST 04/01/20 Insulin Glargine,Hum.rec.anlog [Lantus Insulin 100 Unit/1 ml 10 ml] 20 units SQ DAILY 04/01/20 Insulin Regular, Human [Humulin R (Reg) Insulin 100 unit/mL] 8 units SQ AC 04/01/20 Losartan Potassium [Cozaar 25 mg Tablet] 25 mg PO DAILY 04/01/20 Magnesium Oxide [Mag-Ox 400 mg Tablet] 400 mg PO BID 04/01/20 Multivitamin [Multiple Vitamins] 1 tab PO DAILY 04/01/20 Rivaroxaban [Xarelto] 20 mg PO QPM 04/01/20 Sennosides/Docusate Sodium [Senna Plus 8.6-50 mg Tablet] 1 tab PO BID MDD HOLD FOR LOOSE STOOL 04/01/20 Spironolactone [Aldactone 25 mg Tablet] 25 mg PO DAILY 04/01/20 Cefdinir 300 mg PO BID #4 capsule 04/04/20 Fluconazole [Diflucan 100 mg Tablet] 100 mg PO ONCE PRN #1 tablet 04/04/20 Allergies/Adverse Reactions: amlodipine Allergy (Severe, Verified 04/01/20 15:14) Hallucinations isosorbide [From Imdur] Allergy (Intermediate, Verified 04/01/20 15:14) RASH zolpidem [From Ambien] Adverse Reaction (Severe, Verified 04/01/20 15:14) Hallucinations Review of Systems Constitutional: PRESENT: as per HPI Eyes: ABSENT: visual disturbances Ears: ABSENT: hearing changes Nose, Mouth, and Throat: ABSENT: as per HPI, headache(s), mouth pain, sore throat, vertigo, other Cardiovascular: PRESENT: as per HPI Respiratory: PRESENT: as per HPI Gastrointestinal: PRESENT: as per HPI Genitourinary: ABSENT: dysuria, hematuria Musculoskeletal: PRESENT: other - Has right below knee and left above-knee amputation Integumentary: ABSENT: rash, wounds Neurological: ABSENT: abnormal gait, abnormal speech, confusion, dizziness, focal weakness, syncope Psychiatric: ABSENT: anxiety, depression, homidical ideation, suicidal ideation Hematologic/Lymphatic: PRESENT: as per HPI Physical Exam Vital Signs: Temp Pulse Resp BP Pulse Ox 98.7 F 67 14 99/55 L 97 05/17/20 21:17 05/17/20 21:17 05/17/20 21:17 05/17/20 21:17 05/17/20 21:17 Intake & Output 05/16/20 05/17/20 05/18/20 06:59 06:59 06:59 Intake Total 500 Balance 500 Weight 98.883 kg Additional comments: GENERAL APPEARANCE: Appears pale, in no acute respiratory distress, saturating well on 2 L intranasal oxygen HEENT: Normocephalic and atraumatic. No scleral icterus. Pale conjunctiva. Dry oral mucosa NECK: Supple. No evidence of thyroid enlargement. No lymphadenopathy or tenderness. No JVD CHEST: Symmetric. Nontender to palpation. LUNGS: Breath sounds are equal and clear bilaterally. No wheezes, rhonchi, or rales. HEART: Regular rate and rhythm with normal S1 and S2. No murmurs, gallops, or rubs. ABDOMEN: Protuberant, soft, positive bowel sounds, no direct or rebound tenderness. No organomegaly or mass detected. No CVA tenderness EXTREMITIES: No cyanosis or clubbing. Has right BKA and left AKA with no redness or wound around the amputation site. MUSCULOSKELETAL: No deformity, atrophy or swelling noted PSYCHIATRIC: The patient is awake, alert, and oriented x3. Appropriate mood and affect. SKIN: Warm, dry, and well perfused. No lesions or rashes are noted. NEUROLOGIC: No focal sensory or motor deficits are noted. Results Laboratory Results: 05/17/20 16:18 05/17/20 16:18 05/17/20 05/17/20 05/17/20 16:18 16:18 16:58 WBC 5.2 RBC 2.58 L Hgb 7.2 L Hct 21.6 L MCV 84 MCH 27.8 MCHC 33.2 RDW 18.5 H Plt Count 234 Seg Neutrophils % 68.2 Sodium 132.7 L Potassium 5.7 H Chloride 93 L Carbon Dioxide 26 Anion Gap 14 BUN 88 H Creatinine 2.60 H Est GFR ( Amer) 24 L Glucose 98 Calcium 8.7 Total Bilirubin 0.6 AST 24 Alkaline Phosphatase 40 Total Protein 6.6 Albumin 3.7 Lipase 36.9 Blood Type O POSITIVE Antibody Screen NEGATIVE 05/17/20 16:18 Troponin I 0.017 NT-Pro-B Natriuret Pep 24856 H Impressions: Chest X-Ray 05/17/20 15:05 IMPRESSION: Cardiomegaly. No acute findings. Chest CT 05/17/20 16:03 IMPRESSION: 1. Cardiomegaly with no sumeet pulmonary edema. 2. Very limited opacification in the left lower lobe. Cannot exclude very li mited pneumonia versus atelectasis. 3. There are multiple small mediastinal nodes. Assessment and Plan - Diagnosis (1) Acute respiratory failure with hypoxia Is this a current diagnosis for this admission?: Yes Plan: On presentation patient was saturating 88 to 90% on room air which improved to > with 2 L supplemental oxygen Likely secondary to viral pneumonia/COVID-19 infection Follow-up with a Covid test Continue supplemental oxygen Started on dexamethasone On supplemental vitamin D, vitamin C, zinc Obtain ferritin, CK, CRP, LDH levels Consider remdesivir if COVID-19 is confirmed (2) Severe anemia Is this a current diagnosis for this admission?: Yes Plan: Patient presents with generalized weakness and is pale on physical exam H&H on this presentation 7.2/21.6 from hemoglobin of 8.2 in March 2020 Will type, crossmatch and transfuse with 2 units of packed RBC Closely monitor H&H (3) GI bleed Is this a current diagnosis for this admission?: Yes Plan: Presents with severe symptomatic anemia Stool guaiac was positive Patient reports history of GI ulcer in the past Patient had soft blood pressure on presentation which improved after initial fluid administration Started her on IV pantoprazole 40 mg twice daily Kept n.p.o. Surgery on board and recommendations reviewed Continue monitoring H&H (4) Pneumonia Is this a current diagnosis for this admission?: Yes Plan: Patient presents with cough and shortness of breath of [address] chest showed left lower lobe opacity concerning for pneumonia Started her on ceftriaxone and azithromycin Follow-up with blood culture and sputum Gram stain and culture results Albuterol inhaler as needed (5) Suspected COVID-19 virus infection Is this a current diagnosis for this admission?: Yes Plan: Patient presents with symptoms concerning for COVID-19 COVID-19 result pending at outside facility Started on dexamethasone, vitamin D, zinc, vitamin C On supplemental oxygen at 2 L/min Will consider treating her with convalescent plasma and remdesivir if confirmed Special airborne isolation (6) Volume depletion Is this a current diagnosis for this admission?: Yes Plan: Likely due to poor oral intake and GI loss Cautiously hydrate her due to history of heart failure (7) Acute kidney injury superimposed on chronic kidney disease Is this a current diagnosis for this admission?: Yes Plan: BUN/creatinine on this presentation 88/2.6 from a baseline creatinine of around 1.2-1.5 Likely prerenal due to GI loss and poor oral intake Ordered urine sodium and creatinine to check FeNa Continue gentle hydration due to history of heart failure Follow-up with BMP in the morning (8) Hyperkalemia Is this a current diagnosis for this admission?: Yes Plan: Possibly due to acute kidney injury Serum potassium was 5.7 on presentation> 1 repeat while at ER proved to 5.2 No EKG changes noted consistent with hyperkalemia Will hold back on Kayexalate for now due to GI bleed We will continue to monitor serum electrolytes (9) Hyponatremia Is this a current diagnosis for this admission?: Yes Plan: Likely due to volume depletion Serum sodium was 133 We will continue IV hydration and monitor BMP (10) History of DVT (deep vein thrombosis) Is this a current diagnosis for this admission?: Yes Plan: We will hold Eliquis for now due to possibility of GI bleed and severe anemia (11) CAD (coronary artery disease) of bypass graft Is this a current diagnosis for this admission?: Yes Plan: Currently denies chest pain Continue home meds (12) Peripheral arterial disease Is this a current diagnosis for this admission?: Yes Plan: Status post amputation bilaterally Continue statin, aspirin (13) Congestive heart failure Qualifiers: Heart failure type: unspecified Heart failure chronicity: unspecified Qualified Code(s): I50.9 - Heart failure, unspecified Is this a current diagnosis for this admission?: Yes Plan: Currently has no signs of volume overload CT chest showed no sign of pulmonary edema BNP elevated at 13,700. Will hold Lasix for now due to soft BP and risk of GI bleed (14) Diabetes mellitus type 2 in obese Is this a current diagnosis for this admission?: Yes Plan: We will put her on sliding scale Check, hypoglycemia protocol (15) History of atrial fibrillation Is this a current diagnosis for this admission?: Yes Plan: Status post ablation Has been on Xarelto since 2009 Currently in sinus rhythm We will hold Xarelto due to possible GI bleed (16) Hypertension Qualifiers: Hypertension type: essential hypertension Qualified Code(s): I10 - Essential (primary) hypertension Is this a current diagnosis for this admission?: Yes Plan: Hold antihypertensives for now due to the risk of hypotension - Time Time Spent with patient: 35 or more minutes Total Critical Time (Minutes): 55 Medications reviewed and adjusted accordingly: Yes Anticipated Discharge Disposition: Home with Home Health Anticipated Discharge Timeframe: within 72 hours - Inpatient Certification Based on my medical assessment, after consideration of the patient's comorbidities, presenting symptoms, or acuity I expect that the services needed warrant INPATIENT care.: Yes I certify that my determination is in accordance with my understanding of Medicare's requirements for reasonable and necessary INPATIENT services [42 CFR 412.3e].: Yes Medical Necessity: Significant Comorbidiites Make Outpatient Treatment Too Risky, Need Close Monitoring Due to Risk of Patient Decompensation, Need For IV Fluids, Need for IV Antibiotics, Risk of Complication if Not Cared For in Hospital Post Hospital Care: D/C or Transfer Summary
[2020-05-17] MEDS ORDERED: AZITHROMYCIN 500 MG in DEXTROSE 5%-WATER 250 ML IV ONE (22:30)
[2020-05-17] MEDS ORDERED: AZITHROMYCIN INJ 500 MG VIAL IV PRN (22:34)
[2020-05-17] MEDS: PANTOPRAZOLE SODIUM 40 MG VIAL IV SCH (22:41)
[2020-05-17] MEDS: DEXAMETHASONE SOD PHOS INJ 10 MG/1 ML VIAL IV SCH (22:41)
[2020-05-17] MEDS ORDERED: ALBUTEROL SULFATE HFA (90 MCG/PUFF) 8 GM MDI IH PRN (22:54)
[2020-05-17] MEDS ORDERED: CEFTRIAXONE 1 GM/D5W RTU 1 GM/50 ML RTUPB IV ONE (23:00)
--- NOTE | 2020-05-17 23:53 | PDOC CONSULTATION ---
Consultation Consult Date: 05/17/20 Provider Consulted: KIMANI CALVERT Consult reason:: GI bleed History of Present Illness Admission Date/PCP: 05/17/20 22:08 MITESH CAICEDO MD History of Present Illness: HELDER SERNA is a 49 year old female Presents emergency department via ground rescue, because of diversion from [facility] where patient normally goes, for progressive shortness of breath. [facility], Covid test pending, now in [facility] ER with chronic shortness of breath. Patient found to be anemic; chest long history of chronic anemia, takes iron. She has a history of peptic ulcer disease last upper and lower endoscopy 2 years ago, showing ulcer disease, and polyps. Patient is being admitted to the medicine service for respiratory insufficiency, rule out Covid. Surgery consulted for evaluation of anemia, heme positive stool. Past Medical History Cardiac Medical History: Reports: Atrial Fibrillation, Congestive Heart Failure, Coronary Artery Disease, DVT, Myocardial Infarction - x3 per patient, Hyperlipidema, Hypertension, Peripheral Vascular Disease Pulmonary Medical History: Reports: Bronchitis, Chronic Obstructive Pulmonary Disease (COPD), Pneumonia Neurological Medical History: Denies: Migraine, Seizures Endocrine Medical History: Reports: Diabetes Mellitus Type 2 Denies: Diabetes Mellitus Type 1, Hyperthyroidism, Hypothyroidism GI Medical History: Reports: Gastroesophageal Reflux Disease, Hiatal Hernia Denies: Cirrhosis, Crohn's Disease, Hepatitis, Ulcerative Colitis Musculoskeltal Medical History: Reports: Arthritis Denies: Fibromyalgia, Gout Skin Medical History: Denies: Eczema, Psoriasis Psychiatric Medical History: Reports: Depression Hematology: Reports: Anemia Denies: Bleeding Tendencies Past Surgical History Past Surgical History: Reports: Amputation - Right BKA, Left AKA, Cardiac Catheterization, Section - x2, Cholecystectomy, Coronary Artery Bypass Graft - x3, Herniorrhaphy - Ventral hernia, Orthopedic Surgery - Knee surgery, Tubal Ligation, Vascular Surgery - Left iliofemoral bypass, Other - Peripheral nerve stimulator implantation Social History Lives with: Family Smoking Status: Former Smoker Frequency of Alcohol Use: None Hx Recreational Drug Use: No Drugs: None Hx Prescription Drug Abuse: No - Advance Directive Resuscitation Status: Full Code Family History Family History: None, CAD, CVA, DM, Hypertension, Malignancy, Other - Kidney disease Parental Family History Reviewed: No Children Family History Reviewed: No Sibling(s) Family History Reviewed.: No Medication/Allergy Home Medications: Aspirin [Adult Low Dose Aspirin EC] 81 mg PO DAILY 07/02/19 Buspirone HCl [Buspar 15 mg Tablet] 7.5 mg PO Q12 07/02/19 Carvedilol [Coreg 3.125 mg Tablet] 3.125 mg PO Q12 07/02/19 Citalopram Hydrobromide [Celexa 40 mg Tablet] 40 mg PO DAILY 07/02/19 Fenofibrate Nanocrystallized [Tricor 145 mg Tablet] 145 mg PO WBRKFST 07/02/19 Metoclopramide HCl [Reglan 10 mg Tablet] 5 mg PO AC 07/02/19 Oxycodone HCl [Oxy-Ir 5 mg Tablet] 10 mg PO Q6HP PRN 07/02/19 Pantoprazole Sodium [Protonix [address] Tablet] 40 mg PO DAILY 07/02/19 Trazodone HCl [Desyrel 50 mg Tablet] 50 mg PO HSP PRN 07/02/19 Atorvastatin Calcium [Lipitor 80 mg Tablet] 80 mg PO QHS tablet 07/04/19 Gabapentin [Neurontin 300 mg Capsule] 600 mg PO Q8 10/24/19 Nitroglycerin [Nitrostat 0.4 mg (1/150 Gr) Tabs 25/Bottle] 1 tab SL Q5MP PRN 10/24/19 Bumetanide [Bumex 1 mg Tablet] 2 mg PO BID 30 Days tablet 11/01/19 Acetaminophen [Tylenol 325 mg Tablet] 650 mg PO Q6HP PRN 04/01/20 Ascorbic Acid [Vitamin C 500 mg Tablet] 500 mg PO DAILY 04/01/20 Baclofen [Baclofen 10 mg Tablet] 10 mg PO QID 04/01/20 Ferrous Sulfate [Feosol 325 mg Tablet] 325 mg PO WBRKFST 04/01/20 Insulin Glargine,Hum.rec.anlog [Lantus Insulin 100 Unit/1 ml 10 ml] 20 units SQ DAILY 04/01/20 Insulin Regular, Human [Humulin R (Reg) Insulin 100 unit/mL] 8 units SQ AC 04/01 Losartan Potassium [Cozaar 25 mg Tablet] 25 mg PO DAILY 04/01/20 Magnesium Oxide [Mag-Ox 400 mg Tablet] 400 mg PO BID 04/01/20 Multivitamin [Multiple Vitamins] 1 tab PO DAILY 04/01/20 Rivaroxaban [Xarelto] 20 mg PO QPM 04/01/20 Sennosides/Docusate Sodium [Senna Plus 8.6-50 mg Tablet] 1 tab PO BID MDD HOLD FOR LOOSE STOOL 04/01/20 Spironolactone [Aldactone 25 mg Tablet] 25 mg PO DAILY 04/01/20 Cefdinir 300 mg PO BID #4 capsule 04/04/20 Fluconazole [Diflucan 100 mg Tablet] 100 mg PO ONCE PRN #1 tablet 04/04/20 Allergies/Adverse Reactions: amlodipine Allergy (Severe, Verified 04/01/20 15:14) Hallucinations isosorbide [From Imdur] Allergy (Intermediate, Verified 04/01/20 15:14) RASH zolpidem [From Ambien] Adverse Reaction (Severe, Verified 04/01/20 15:14) Hallucinations Review of Systems Constitutional: PRESENT: as per HPI Eyes: ABSENT: visual disturbances Nose, Mouth, and Throat: PRESENT: as per HPI Cardiovascular: PRESENT: orthropnea Respiratory: PRESENT: cough, dyspnea Musculoskeletal: PRESENT: as per HPI Physical Exam Vital Signs: Temp Pulse Resp BP Pulse Ox 98.7 F 65 14 116/62 100 05/17/20 22:53 05/17/20 22:53 05/17/20 23:03 05/17/20 23:03 05/17/20 23:03 Intake & Output 05/16/20 05/17/20 05/18/20 06:59 06:59 06:59 Intake Total 750 Balance 750 Weight 98.883 kg General appearance: PRESENT: other - Mild respiratory distress Eye exam: PRESENT: EOMI Mouth exam: PRESENT: dry mucosa Respiratory exam: PRESENT: retraction, other - Retraction Cardiovascular exam: PRESENT: RRR Pulses: PRESENT: normal carotid pulses GI/Abdominal exam: PRESENT: other - Scars consistent with previous surgery, soft nontender Rectal exam: PRESENT: deferred Musculoskeletal exam: PRESENT: other - , Left AKA patient with right below the knee amputation, healed scar Neurological exam: PRESENT: oriented to person, oriented to place, oriented to time, oriented to situation Psychiatric exam: PRESENT: appropriate affect Results Laboratory Results: 05/17/20 16:18 05/17/20 16:18 05/17/20 05/17/20 05/17/20 16:18 16:18 16:58 WBC 5.2 RBC 2.58 L Hgb 7.2 L Hct 21.6 L MCV 84 MCH 27.8 MCHC 33.2 RDW 18.5 H Plt Count 234 Seg Neutrophils % 68.2 Sodium 132.7 L Potassium 5.7 H Chloride 93 L Carbon Dioxide 26 Anion Gap 14 BUN 88 H Creatinine 2.60 H Est GFR ( Amer) 24 L Glucose 98 Calcium 8.7 Total Bilirubin 0.6 AST 24 Alkaline Phosphatase 40 Total Protein 6.6 Albumin 3.7 Lipase 36.9 Blood Type O POSITIVE Antibody Screen NEGATIVE 05/17/20 16:18 Troponin I 0.017 NT-Pro-B Natriuret Pep 20989 H Impressions: Chest X-Ray 05/17/20 15:05 IMPRESSION: Cardiomegaly. No acute findings. Chest CT 05/17/20 16:03 IMPRESSION: 1. Cardiomegaly with no sumeet pulmonary edema. 2. Very limited opacification in the left lower lobe. Cannot exclude very limited pneumonia versus atelectasis. 3. There are multiple small mediastinal nodes. Assessment & Plan - Diagnosis (1) GI bleed Is this a current diagnosis for this admission?: Yes Plan: Impression: Chronic anemia, likely multifactorial; personal history of peptic ulcer disease; now guaiac positive dark stool possibly due to iron therapy; history of previous blood transfusions. Hemodynamically stable. Primary problem is respiratory Plan: 1. Agree with the medical management, respiratory evaluation, rule out Covid etc. 2. Agree with blood transfusions 3. If patient renal and pulmonary systems are stable, will consider bowel prep tomorrow, with possible upper and lower endoscopy on Sunday. (2) S/P CABG x 3 Is this a current diagnosis for this admission?: Yes (3) DANNI (acute kidney injury) Is this a current diagnosis for this admission?: Yes (4) Acute respiratory failure with hypoxia Is this a current diagnosis for this admission?: Yes (5) Congestive heart failure Qualifiers: Heart failure type: unspecified Heart failure chronicity: unspecified Qualified Code(s): I50.9 - Heart failure, unspecified Is this a current diagnosis for this admission?: Yes (6) Suspected COVID-19 virus infection Is this a current diagnosis for this admission?: Yes (8) Hypertension Qualifiers: Hypertension type: essential hypertension Qualified Code(s): I10 - Essential (primary) hypertension Is this a current diagnosis for this admission?: Yes (9) Splenomegaly Is this a current diagnosis for this admission?: Yes
[2020-05-18 00:09] LABS: APPEARANCE,URINE CLEAR; BILIRUBIN,URINE NEGATIVE (NEGATIVE); COLOR,URINE YELLOW; GLUCOSE, URINE NEGATIVE (NEGATIVE); KETONES,URINE NEGATIVE (NEGATIVE); PROTEIN,URINE 30 mg/dL (NEGATIVE); UROBILINOGEN,URINE NEGATIVE mg/dL (<2.0)
[2020-05-18 00:18] LABS: URINE CREATININE 35.3 mg/dL (15-278)
[2020-05-18] MEDS: INSULIN REG, HUMAN 100 UNIT/ML 3 ML VIAL (PYX) SUBCUT SCH ×3 (00:43→13:20)
[2020-05-18 01:36] LABS: ANION GAP 16 (5-19); BLOOD UREA NITROGEN 89 mg/dL (7-20); C-REACTIVE PROTEIN 11.4 mg/L (<10.0); CALCIUM 9.1 mg/dL (8.4-10.2); CARBON DIOXIDE 24 mmol/L (22-30); CHLORIDE 95 mmol/L (98-107); CREATINE KINASE 178 U/L (30-135); GLUCOSE 122 mg/dL (75-110); POTASSIUM 5.2 mmol/L (3.6-5.0)
[2020-05-18] MEDS ORDERED: RINGERS SOLUTION,LACTATED 1,000 ML IV PRN (02:35)
[2020-05-18] MEDS: OXYCODONE HCL IR 5 MG TABLET PO PRN ×3 (03:05→22:41)
[2020-05-18] MEDS ORDERED: BACLOFEN 10 MG TABLET PO PRN (03:23)
[2020-05-18] MEDS: GABAPENTIN 300 MG CAPSULE PO SCH ×3 (03:30→20:31)
--- NOTE | 2020-05-18 09:17 | PDOC PROGRESS REPORT ---
Subjective Progress Note for:: 05/18/20 Reason For Visit: PNEUMONIA,SEVERE SYMPTOMATIC ANEMIA,ACUTE KIDNEY Patient in the Covid dee; Covid status still unknown; patient not visualized by surgeon today Physical Exam Vital Signs: Temp Pulse Resp BP Pulse Ox 98.7 F 65 12 131/83 H 99 05/18/20 04:59 05/18/20 07:00 05/18/20 04:59 05/18/20 04:59 05/18/20 04:59 Intake & Output 05/17/20 05/18/20 05/19/20 06:59 06:59 06:59 Intake Total 900 Balance 900 Weight 79.1 kg Results Laboratory Results: 05/18/20 07:46 05/18/20 00:59 05/17/20 05/17/20 05/17/20 16:18 16:18 16:58 WBC 5.2 RBC 2.58 L Hgb 7.2 L Hct 21.6 L MCV 84 MCH 27.8 MCHC 33.2 RDW 18.5 H Plt Count 234 Seg Neutrophils % 68.2 Sodium 132.7 L Potassium 5.7 H Chloride 93 L Carbon Dioxide 26 Anion Gap 14 BUN 88 H Creatinine 2.60 H Est GFR ( Amer) 24 L Glucose 98 Calcium 8.7 Ferritin Total Bilirubin 0.6 AST 24 Alkaline Phosphatase 40 C-Reactive Protein Total Protein 6.6 Albumin 3.7 Lipase 36.9 Urine Color Urine Appearance Urine pH Ur Specific [place] Urine Protein Urine Glucose (UA) Urine Ketones Urine Blood Urine RBC (Auto) Blood Type O POSITIVE Antibody Screen NEGATIVE 05/17/20 05/18/20 05/18/20 23:30 00:59 07:46 WBC Cancelled RBC Cancelled Hgb Cancelled Hct Cancelled MCV Cancelled MCH Cancelled MCHC Cancelled RDW Cancelled Plt Count Cancelled Seg Neutrophils % Cancelled Sodium 134.8 L Potassium 5.2 H Chloride 95 L Carbon Dioxide 24 Anion Gap 16 BUN 89 H Creatinine 2.80 H Est GFR ( Amer) 22 L Glucose 122 H Calcium 9.1 Ferritin 296.00 H Total Bilirubin AST Alkaline Phosphatase C-Reactive Protein 11.4 H Total Protein Albumin Lipase Urine Color YELLOW Urine Appearance CLEAR Urine pH 5.0 Ur Specific [place] 1.010 Urine Protein 30 H Urine Glucose (UA) NEGATIVE Urine Ketones NEGATIVE Urine Blood NEGATIVE Urine RBC (Auto) 1 Blood Type Antibody Screen 05/17/20 05/18/20 05/18/20 16:18 00:59 00:59 Creatine Kinase 178 H Troponin I 0.017 0.016 NT-Pro-B Natriuret Pep 60282 H Impressions: Chest X-Ray 05/17/20 15:05 IMPRESSION: Cardiomegaly. No acute findings. Chest CT 05/17/20 16:03 IMPRESSION: 1. Cardiomegaly with no sumeet pulmonary edema. 2. Very limited opacification in the left lower lobe. Cannot exclude very limited pneumonia versus atelectasis. 3. There are multiple small mediastinal nodes. Assessment & Plan - Diagnosis (1) GI bleed Is this a current diagnosis for this admission?: Yes Plan: Impression: No overt rectal bleeding or hematemesis; pulmonary situation metastable; worsening renal failure Recommendations: 1. Continue pulmonary, infectious evaluation; acute renal failure management 2. Defer endoscopic evaluation of GI bleeding source until other medical problems stabilized 3. Will sign off; please reconsult surgery if clinically appropriate; discussed above with hospitalist. (2) S/P CABG x 3 Is this a current diagnosis for this admission?: Yes (3) DANNI (acute kidney injury) Is this a current diagnosis for this admission?: Yes (4) Acute respiratory failure with hypoxia Is this a current diagnosis for this admission?: Yes (5) Congestive heart failure Qualifiers: Heart failure type: unspecified Heart failure chronicity: unspecified Qualified Code(s): I50.9 - Heart failure, unspecified Is this a current diagnosis for this admission?: Yes (6) Suspected COVID-19 virus infection Is this a current diagnosis for this admission?: Yes (7) Diabetes mellitus type 2 in obese Is this a current diagnosis for this admission?: Yes (8) Hypertension Qualifiers: Hypertension type: essential hypertension Qualified Code(s): I10 - Essential (primary) hypertension Is this a current diagnosis for this admission?: Yes (9) Splenomegaly Is this a current diagnosis for this admission?: Yes - Time Time Spent: 30 to 50 Minutes Critical Time spent with patient: Less than 15 minutes Smoking Cessation Education: 3 to 10 minutes Medications reviewed and adjusted accordingly: No Anticipated Discharge Disposition: Home, Self Care Anticipated Discharge Timeframe: within 24 hours
[2020-05-18] MEDS: CITALOPRAM HYDROBROMIDE 20 MG TABLET PO SCH (09:35)
[2020-05-18] MEDS: CHOLECALCIFEROL (D3) 1,000 UNIT (25 MCG) TABLET PO SCH (09:36)
[2020-05-18] MEDS: CARVEDILOL 3.125 MG TABLET PO SCH ×2 (09:36→22:32)
[2020-05-18] MEDS: ZINC SULFATE 220 MG CAPSULE PO SCH (09:37)
[2020-05-18] MEDS: PANTOPRAZOLE SODIUM 40 MG VIAL IV SCH ×2 (09:37→22:32)
[2020-05-18] MEDS: ASCORBIC ACID 500 MG TABLET PO SCH ×2 (09:37→17:03)
[2020-05-18] MEDS: AZITHROMYCIN 500 MG in DEXTROSE 5%-WATER 250 ML IV SCH (09:37)
[2020-05-18 10:07] LABS: ABSOLUTE EOSINOPHILS # (AUTO) 0.1 10^3/uL (0.0-0.6); ABSOLUTE MONOCYTES (AUTO) 0.4 10^3/uL (0.1-1.4); ABSOLUTE NEUT (AUTO) 3.4 10^3/uL (1.7-8.2); BASOPHILS % (AUTO) 0.8 % (0-2); EOSINOPHILS % (AUTO) 2.7 % (0-6); HEMATOCRIT 28.4 % (36.0-47.0); LYMPHOCYTES % (AUTO) 20.1 % (13-45); MEAN CORPUSCULAR HEMOGLOBIN 28.1 pg (27.0-33.4); MEAN CORPUSCULAR HGB CONC 33.8 g/dL (32.0-36.0); MEAN CORPUSCULAR VOLUME 83 fl (80-97); MONOCYTES % (AUTO) 8.4 % (3-13); PLATELET COUNT 233 10^3/uL (150-450); RED BLOOD COUNT 3.42 10^6/uL (3.72-5.28); RED CELL DISTRIBUTION WIDTH 17.4 % (11.5-14.0); TOTAL CELLS COUNTED % (AUTO) 100 %
[2020-05-18 10:12] LABS: HEMOGLOBIN 9.6 g/dL (12.0-15.5)
[2020-05-18] MEDS ORDERED: GLUCAGON,HUMAN RECOMB 1 MG INJ IM PRN (13:24)
[2020-05-18] MEDS ORDERED: DEXTROSE 40% GEL 15 GM TUBE PO PRN (13:24)
--- NOTE | 2020-05-18 13:27 | PDOC PROGRESS REPORT ---
Subjective Progress Note for:: 05/18/20 Subjective:: HELDER SERNA is a 49 year old female with multiple comorbidities including A. fib status post ablation, congestive heart failure, DVT, hypertension, hyperlipidemia, type II DM, CAD s/p CABG, PAD status post right BKA and left AKA who now presents to the emergency department complaining of 3 days duration of shortness of breath with associated cough productive of scanty yellowish sputum. She reports that she was seen at [facility] on Sunday for similar complaint and she was given medication for nausea and vomiting and was sent back home after being tested for COVID-19(result is pending). Starting this morning she reported that the shortness of breath got worse and she has been feeling generally weak, and also endorses nausea and vomiting of ingested matter. She reports that she has a history of hemorrhoid and has been noticing bright red blood when she wipes the past week but denies any history of melena, hematochezia or hematemesis. She also reports a remote history of GI ulcer but denies any current abdominal pain and denies taking [id number] medications. She denies fever or chills. The emergency department stool guaiac was positive and patient was given 2 units of packed RBC. 05/18/20 D2 hospital stay. She was seen and examined at bedside. She is on 2L NC saturating 95%. She received 2 PRBC repeat Hgb 9.6. No melena/hematochezia. She reports that her SOB has improved since and she denies any chest pain. Spoke to Dr. Heath from surgery, he does not plan on scoping her today unless she developes massive GI bleed and significant hgb drop. Reason For Visit: PNEUMONIA,SEVERE SYMPTOMATIC ANEMIA,ACUTE KIDNEY Physical Exam Vital Signs: Temp Pulse Resp BP Pulse Ox 98.5 F 64 22 H 110/73 100 05/18/20 07:54 05/18/20 07:54 05/18/20 07:54 05/18/20 07:54 05/18/20 07:54 Intake & Output 05/17/20 05/18/20 05/19/20 06:59 06:59 06:59 Intake Total 900 Balance 900 Weight 79.1 kg General appearance: PRESENT: no acute distress, cooperative Head exam: PRESENT: atraumatic, normocephalic Eye exam: PRESENT: EOMI, PERRLA Mouth exam: PRESENT: moist Neck exam: PRESENT: full ROM Respiratory exam: PRESENT: clear to auscultation amaya, symmetrical, unlabored Cardiovascular exam: PRESENT: RRR, +S1 Pulses: PRESENT: +2 pedal pulses bilateral GI/Abdominal exam: PRESENT: normal bowel sounds, soft. ABSENT: rebound, tenderness Musculoskeletal exam: PRESENT: full ROM Neurological exam: PRESENT: alert, awake, oriented to person, oriented to place, oriented to time, oriented to situation Psychiatric exam: PRESENT: normal mood Skin exam: PRESENT: normal color Results Laboratory Results: 05/18/20 09:20 05/18/20 00:59 05/17/20 05/17/20 05/17/20 16:18 16:18 16:58 WBC 5.2 RBC 2.58 L Hgb 7.2 L Hct 21.6 L MCV 84 MCH 27.8 MCHC 33.2 RDW 18.5 H Plt Count 234 Seg Neutrophils % 68.2 Sodium 132.7 L Potassium 5.7 H Chloride 93 L Carbon Dioxide 26 Anion Gap 14 BUN 88 H Creatinine 2.60 H Est GFR ( Amer) 24 L Glucose 98 Calcium 8.7 Ferritin Total Bilirubin 0.6 AST 24 Alkaline Phosphatase 40 C-Reactive Protein Total Protein 6.6 Albumin 3.7 Lipase 36.9 Urine Color Urine Appearance Urine pH Ur Specific [place] Urine Protein Urine Glucose (UA) Urine Ketones Urine Blood Urine RBC (Auto) Blood Type O POSITIVE Antibody Screen NEGATIVE 05/17/20 05/18/20 05/18/20 23:30 00:59 07:46 WBC Cancelled RBC Cancelled Hgb Cancelled Hct Cancelled MCV Cancelled MCH Cancelled MCHC Cancelled RDW Cancelled Plt Count Cancelled Seg Neutrophils % Cancelled Sodium 134.8 L Potassium 5.2 H Chloride 95 L Carbon Dioxide 24 Anion Gap 16 BUN 89 H Creatinine 2.80 H Est GFR ( Amer) 22 L Glucose 122 H Calcium 9.1 Ferritin 296.00 H Total Bilirubin AST Alkaline Phosphatase C-Reactive Protein 11.4 H Total Protein Albumin Lipase Urine Color YELLOW Urine Appearance CLEAR Urine pH 5.0 Ur Specific [place] 1.010 Urine Protein 30 H Urine Glucose (UA) NEGATIVE Urine Ketones NEGATIVE Urine Blood NEGATIVE Urine RBC (Auto) 1 Blood Type Antibody Screen 05/18/20 09:20 WBC 5.0 RBC 3.42 L Hgb 9.6 L D Hct 28.4 L MCV 83 MCH 28.1 MCHC 33.8 RDW 17.4 H Plt Count 233 Seg Neutrophils % 68.0 Sodium Potassium Chloride Carbon Dioxide Anion Gap BUN Creatinine Est GFR ( Amer) Glucose Calcium Ferritin Total Bilirubin AST Alkaline Phosphatase C-Reactive Protein Total Protein Albumin Lipase Urine Color Urine Appearance Urine pH Ur Specific [place] Urine Protein Urine Glucose (UA) Urine Ketones Urine Blood Urine RBC (Auto) Blood Type Antibody Screen 05/17/20 05/18/20 05/18/20 16:18 00:59 00:59 Creatine Kinase 178 H Troponin I 0.017 0.016 NT-Pro-B Natriuret Pep 70738 H Impressions: Chest X-Ray 05/17/20 15:05 IMPRESSION: Cardiomegaly. No acute findings. Chest CT 05/17/20 16:03 IMPRESSION: 1. Cardiomegaly with no sumeet pulmonary edema. 2. Very limited opacification in the left lower lobe. Cannot exclude very limited pneumonia versus atelectasis. 3. There are multiple small mediastinal nodes. Assessment and Plan - Diagnosis (1) Acute respiratory failure with hypoxia Is this a current diagnosis for this admission?: Yes Plan: -On presentation patient was saturating 88 to 90% on room air which improved to > with 2 L supplemental oxygen -Likely secondary to viral pneumonia/COVID-19 infection or CHF, symptomatic anemia -Continue supplemental oxygen -CRP 11.4 high , Ferritin 296 high, BNP 49499 -Started on dexamethasone -On supplemental vitamin D, vitamin C, zinc -Consider remdesivir if COVID-19 is confirmed -COVID pending - continue O2 spoort (2) Acute on chronic anemia Is this a current diagnosis for this admission?: Yes Plan: -Patient presents with generalized weakness and is pale on physical exam -H&H on this presentation 7.2/21.6 from hemoglobin of 8.2 in March 2020 - s/p 2 u PRBC post H&H 9.6 - she has a history of anemia and ulcers. LAst colonoscopy a few years ago showed some polyps - continue to monitor (3) GI bleed Qualifiers: GI bleed type/associated pathology: anorectal hemorrhage Qualified Code(s): K62.5 - Hemorrhage of anus and rectum Is this a current diagnosis for this admission?: Yes Plan: - hx of ulcers in the past, using iron supplements - has been having small amount of hemorrhoidal bleeding - last colonoscopy <5 years ago with diverticulosis - S/p 2 u PRBC - surgery have signed out. No plans for colonosopy or EGD per Dr. heath unless she continues to bleed or drops her hgb - continue protonix - aspirin resumed as she has significant cardiac history - will hold Xarelto for today and resume tomorrow. she has a history of DVT - maintain 2 large IV at all times (4) DANNI (acute kidney injury) Is this a current diagnosis for this admission?: Yes Plan: - Crea 2.6>2.8. baseline of around 1.2, non oliguric - Fena intrinsinc renal - continue ICV fluids for now and stop tomorrow - will monitor daily crea - avoid nephrotoxic agents (5) Pneumonia Qualifiers: Pneumonia type: due to unspecified organism Is this a current diagnosis for this admission?: Yes Plan: -Patient presents with cough and shortness of breath of 3 days duration -CT chest showed left lower lobe opacity concerning for pneumonia bacterial or COVID -Started her on ceftriaxone and azithromycin -Follow-up with blood culture and sputum Gram stain and culture results -Albuterol inhaler as needed (6) Suspected COVID-19 virus infection Is this a current diagnosis for this admission?: Yes Plan: Patient presents with symptoms concerning for COVID-19 COVID-19 result pending at outside facility Started on dexamethasone, vitamin D, zinc, vitamin C On supplemental oxygen at 2 L/min Will consider treating her with convalescent plasma and remdesivir if confirmed Special airborne isolation (7) CAD (coronary artery disease) of bypass graft Is this a current diagnosis for this admission?: Yes Plan: - denies chest pain. Hx of CABG - trop 0.017>0.016 - aspirin resumed - continue losartan, carvedilol (8) Hyperkalemia Is this a current diagnosis for this admission?: Yes Plan: Possibly due to acute kidney injury Serum potassium was 5.7>5.2 No EKG changes noted consistent with hyperkalemia We will continue to monitor serum electrolytes (9) Hyponatremia Is this a current diagnosis for this admission?: Yes Plan: Likely due to volume depletion Serum sodium was 133 We will continue IV hydration and monitor BMP (10) History of DVT (deep vein thrombosis) Is this a current diagnosis for this admission?: Yes Plan: We will hold xarelto for now - resume tomorrow (11) Diabetes mellitus type 2 in obese Is this a current diagnosis for this admission?: Yes Plan: - long acting insulin resumed with SSi - accucheck - hypoglycemia protocoll (12) Morbid obesity Is this a current diagnosis for this admission?: Yes Plan: - BMI 53.2 - lifestyle modification advised - Time Time Spent with patient: 25-34 minutes Anticipated Discharge Disposition: Home, Self Care Anticipated Discharge Timeframe: to be determined
[2020-05-18] MEDS: INSULIN LISPRO 100 UNIT/ML 3 ML VIAL SUBCUT SCH ×2 (16:59→22:41)
[2020-05-18] MEDS ORDERED: AZITHROMYCIN 500 MG in DEXTROSE 5%-WATER 250 ML IV SCH (22:00)
[2020-05-18] MEDS: ATORVASTATIN CALCIUM 80 MG TABLET PO SCH (22:32)
[2020-05-18] MEDS: DEXAMETHASONE SOD PHOS INJ 10 MG/1 ML VIAL IV SCH (22:32)
[2020-05-18] MEDS: CEFTRIAXONE 1 GM/D5W RTU 1 GM/50 ML RTUPB IV SCH (22:34)
[2020-05-19] MEDS: GABAPENTIN 300 MG CAPSULE PO SCH ×3 (04:26→22:36)
[2020-05-19 05:46] LABS: ABSOLUTE LYMPHOCYTES (AUTO) 0.4 10^3/uL (0.5-4.7); ABSOLUTE MONOCYTES (AUTO) 0.1 10^3/uL (0.1-1.4); ABSOLUTE NEUT (AUTO) 3.8 10^3/uL (1.7-8.2); BASOPHILS % (AUTO) 0.4 % (0-2); EOSINOPHILS % (AUTO) 0.2 % (0-6); HEMOGLOBIN 9.8 g/dL (12.0-15.5); LYMPHOCYTES % (AUTO) 9.7 % (13-45); MEAN CORPUSCULAR HEMOGLOBIN 28.4 pg (27.0-33.4); MEAN CORPUSCULAR HGB CONC 33.8 g/dL (32.0-36.0); MEAN CORPUSCULAR VOLUME 84 fl (80-97); MONOCYTES % (AUTO) 2.5 % (3-13); PLATELET COUNT 235 10^3/uL (150-450); RED BLOOD COUNT 3.45 10^6/uL (3.72-5.28); RED CELL DISTRIBUTION WIDTH 17.8 % (11.5-14.0); SEGMENTED NEUTROPHILS % (AUTO) 87.2 % (42-78); TOTAL CELLS COUNTED % (AUTO) 100 %; WHITE BLOOD COUNT 4.3 10^3/uL (4.0-10.5)
[2020-05-19 06:00] LABS: ALBUMIN 3.9 g/dL (3.5-5.0); ALKALINE PHOSPHATASE 48 U/L (38-126); ANION GAP 15 (5-19); ASPARTATE AMINO TRANSFERASE 25 U/L (14-36); BILIRUBIN,DIRECT 0.4 mg/dL (0.0-0.4); BILIRUBIN,TOTAL 0.7 mg/dL (0.2-1.3); BLOOD UREA NITROGEN 71 mg/dL (7-20); CALCIUM 9.2 mg/dL (8.4-10.2); CARBON DIOXIDE 21 mmol/L (22-30); CHLORIDE 99 mmol/L (98-107); GLUCOSE 177 mg/dL (75-110); POTASSIUM 5.2 mmol/L (3.6-5.0); TOTAL PROTEIN 7.1 g/dL (6.3-8.2)
[2020-05-19] MEDS: OXYCODONE HCL IR 5 MG TABLET PO PRN ×3 (07:37→21:24)
--- NOTE | 2020-05-19 08:28 | XCELERA REPORT ---
[address] [address] Transthoracic Echocardiogram Report Name: HELDER SERNA Age: 49 yrs Gender: Female : 1970 Patient Status: Inpatient Patient Location: [facility]^A Study Date: 05/18/2020 09:11 AM History: CHF Height: 40 in Weight: 174 lb BSA: 1.3 m2 Reason For Study: elevated BNP Previous Evaluation: A previous study was performed on 10/01/2019 LVEF 40-45%. History: CHF. CAD. Ordering Physician: YAW BENAVIDES Performed By: Soniya Baires Interpretation Summary Very poor endocardial definition. EF is hard to estimate. Due to the poor quality of the echocardiogram, an assessment of left ventricular ejection fraction cannot be made. Best estimate is 35-40%. The right ventricular systolic function is mildly reduced. There is a mild amount of mitral regurgitation There is no aortic valve stenosis There is a mild amount of tricuspid regurgitation There is mild pulmonary hypertension by echo There is no pericardial effusion. MMode/2D Measurements & Calculations RVDd: 2.6 cm LVIDd: 4.9 cm FS: 18.4 % Ao root diam: 2.1 cm IVSd: 0.95 cm LVIDs: 4.0 cm EDV(Teich): 114.2 ml Ao root area: 3.3 cm2 LVPWd: 1.0 cm ESV(Teich): 70.9 ml LA dimension: 3.6 cm EF(Teich): 38.0 % Doppler Measurements & Calculations MV E max juan: MV dec slope: Ao V2 max: LV V1 max P.7 cm/sec 767.4 cm/sec2 106.0 cm/sec 3.6 mmHg MV A max juan: MV dec time: Ao max P.5 mmHg LV V1 max: 45.9 cm/sec 0.15 sec 95.4 cm/sec MV E/A: 2.5 MR max juan: PA V2 max: PI end-d juan: TR max juan: 379.7 cm/sec 80.1 cm/sec 106.2 cm/sec 275.3 cm/sec MR max PG: PA max P.6 mmHg TR max P.7 mmHg 30.6 mmHg Left Ventricle The left ventricle is mildly dilated. There is mild concentric left ventricular hypertrophy. Due to the poor quality of the echocardiogram, an assessment of left ventricular ejection fraction cannot be made. Best estimate is 35-40%. Doppler measurements suggest pseudonormalized left ventricular relaxation, which is associated with grade II/IV or mild to moderate diastolic dysfunction. Septal motion is consistent with post-operative state. Right Ventricle The right ventricle is not well visualized secondary to technical limitations. The right ventricular systolic function is mildly reduced. Mitral Valve The mitral valve is grossly normal. Calcified mitral apparatus. There is no mitral valve stenosis. There is a mild amount of mitral regurgitation. Aortic Valve The aortic valve is sclerotic and shows some degree of functional abnormality. The aortic valve is mildly calcified. There is no aortic valve stenosis. No aortic regurgitation is present. Tricuspid Valve The tricuspid valve is not well visualized, but is grossly normal. There is no tricuspid stenosis. There is a mild amount of tricuspid regurgitation. Right ventricular systolic pressure is estimated to be elevated at 40-50mmHg. There is mild pulmonary hypertension by echo. Pulmonic Valve The pulmonic valve is not well visualized. There is no pulmonic valvular stenosis. There is a mild amount of pulmonic regurgitation. Great Vessels The aortic root is not well visualized but is probably normal size. The inferior vena cava appeared normal and decreased > 50% with respiration (RAP 5-10 mmHg). Effusions There is no pericardial effusion. : YAW BENAVIDES Anil
[2020-05-19] MEDS: INSULIN LISPRO 100 UNIT/ML 3 ML VIAL SUBCUT SCH ×4 (08:30→22:36)
[2020-05-19] MEDS: CITALOPRAM HYDROBROMIDE 20 MG TABLET PO SCH (09:04)
[2020-05-19] MEDS: ASCORBIC ACID 500 MG TABLET PO SCH ×2 (09:04→17:17)
[2020-05-19] MEDS: CARVEDILOL 3.125 MG TABLET PO SCH ×2 (09:04→22:35)
[2020-05-19] MEDS: ASPIRIN 81 MG TABLET, ENT COATED PO SCH (09:05)
[2020-05-19] MEDS: PANTOPRAZOLE SODIUM 40 MG VIAL IV SCH ×2 (09:05→22:37)
[2020-05-19] MEDS: CHOLECALCIFEROL (D3) 1,000 UNIT (25 MCG) TABLET PO SCH (09:05)
[2020-05-19] MEDS: ZINC SULFATE 220 MG CAPSULE PO SCH (09:05)
[2020-05-19] MEDS ORDERED: FUROSEMIDE INJ/PF 40 MG/4 ML SDV IV ONE (09:41)
[2020-05-19] MEDS: INSULIN GLARGINE,HUM.REC.ANLOG 1,000 UNIT/10 ML VIAL SUBCUT SCH (10:56)
[2020-05-19] MEDS: AZITHROMYCIN 500 MG in DEXTROSE 5%-WATER 250 ML IV SCH (10:56)
--- NOTE | 2020-05-19 15:55 | PDOC PROGRESS REPORT ---
Subjective Progress Note for:: 05/19/20 Subjective:: HELDER SERNA is a 49 year old female with multiple comorbidities including A. fib status post ablation, congestive heart failure, DVT, hypertension, hyperlipidemia, type II DM, CAD s/p CABG, PAD status post right BKA and left AKA who now presents to the emergency department complaining of 3 days duration of shortness of breath with associated cough productive of scanty yellowish sputum. She reports that she was seen at [facility] on Sunday for similar complaint and she was given medication for nausea and vomiting and was sent back home after being tested for COVID-19(result is pending). Starting this morning she reported that the shortness of breath got worse and she has been feeling generally weak, and also endorses nausea and vomiting of ingested matter. She reports that she has a history of hemorrhoid and has been noticing bright red blood when she wipes the past week but denies any history of melena, hematochezia or hematemesis. She also reports a remote history of GI ulcer but denies any current abdominal pain and denies taking agov-[id number] medications. She denies fever or chills. The emergency department stool guaiac was positive and patient was given 2 units of packed RBC. 05/18/20 D2 hospital stay. She was seen and examined at bedside. She is on 2L NC saturating 95%. She received 2 PRBC repeat Hgb 9.6. No melena/hematochezia. She reports that her SOB has improved since and she denies any chest pain. Spoke to Dr. Heath from surgery, he does not plan on scoping her today unless she develops massive GI bleed and significant hgb drop. 05/19/20 D3 hospital stay. She was seen and examined at bedside. Her breathing has improved, still on 2 L of nasal cannula. She denied any more episodes of bloody bowel movement or melena. Hemoglobin has been stable 9.6. Covid test is negative. Xarelto resumed today. Reason For Visit: PNEUMONIA,SEVERE SYMPTOMATIC ANEMIA,ACUTE KIDNEY Physical Exam Vital Signs: Temp Pulse Resp BP Pulse Ox 98.3 F 65 18 123/61 98 05/19/20 10:39 05/19/20 14:00 05/19/20 10:39 05/19/20 10:39 10/28/20 10:39 Intake & Output 05/18/20 05/19/20 05/20/20 06:59 06:59 06:59 Intake Total 900 2090 Output Total 950 Balance 900 1140 Weight 79.1 kg 80.7 kg General appearance: PRESENT: cooperative, mild distress Head exam: PRESENT: atraumatic, normocephalic Eye exam: PRESENT: EOMI, PERRLA Mouth exam: PRESENT: moist Respiratory exam: PRESENT: rales, rhonchi, symmetrical, unlabored Cardiovascular exam: PRESENT: RRR, +S1, +S2 GI/Abdominal exam: PRESENT: normal bowel sounds, soft. ABSENT: rebound, tenderness Extremities exam: PRESENT: full ROM Musculoskeletal exam: PRESENT: full ROM Neurological exam: PRESENT: alert, awake, oriented to person, oriented to place, oriented to time, oriented to situation Psychiatric exam: PRESENT: normal mood Skin exam: PRESENT: normal color Results Laboratory Results: 05/19/20 05:22 05/19/20 05:22 05/19/20 05/19/20 05:22 05:22 WBC 4.3 RBC 3.45 L Hgb 9.8 L Hct 29.0 L MCV 84 MCH 28.4 MCHC 33.8 RDW 17.8 H Plt Count 235 Seg Neutrophils % 87.2 H Sodium 134.5 L Potassium 5.2 H Chloride 99 Carbon Dioxide 21 L Anion Gap 15 BUN 71 H Creatinine 2.31 H Est GFR ( Amer) 27 L Glucose 177 H Calcium 9.2 Total Bilirubin 0.7 AST 25 Alkaline Phosphatase 48 Total Protein 7.1 Albumin 3.9 05/17/20 05/18/20 05/18/20 16:18 00:59 00:59 Creatine Kinase 178 H Troponin I 0.017 0.016 NT-Pro-B Natriuret Pep 93720 H Impressions: Chest X-Ray 05/17/20 15:05 IMPRESSION: Cardiomegaly. No acute findings. Chest CT 05/17/20 16:03 IMPRESSION: 1. Cardiomegaly with no sumeet pulmonary edema. 2. Very limited opacification in the left lower lobe. Cannot exclude very limited pneumonia versus atelectasis. 3. There are multiple small mediastinal nodes. Assessment and Plan - Diagnosis (1) Acute respiratory failure with hypoxia Is this a current diagnosis for this admission?: Yes Plan: -On presentation patient was saturating 88 to 90% on room air which improved to > with 2 L supplemental oxygen -Likely secondary to viral pneumonia/COVID-19 infection or CHF, symptomatic anemia -Continue supplemental oxygen -CRP 11.4 high , Ferritin 296 high, BNP 07737 - 1 dose of lasix given -On supplemental vitamin D, vitamin C, zinc -COVID negative - continue O2 support wean off as tolerated (2) Acute exacerbation of CHF (congestive heart failure) Qualifiers: Heart failure type: combined systolic and diastolic Qualified Code(s): I50.43 - 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 LAst colonoscopy a few years ago showed some polyps - continue to monitor (4) GI bleed Qualifiers: GI bleed type/associated pathology: anorectal hemorrhage Qualified Code(s): K62.5 - Hemorrhage of anus and rectum Is this a current diagnosis for this admission?: Yes Plan: - hx of ulcers in the past, using iron supplements - has been having small amount of hemorrhoidal bleeding - last colonoscopy <5 years ago with diverticulosis - S/p 2 u PRBC - surgery have signed out. No plans for colonosopy or EGD per Dr. heath unless she continues to bleed or drops her hgb - continue protonix - aspirin resumed as she has significant cardiac history - xarelto resumed - maintain 2 large IV at all times (5) DANNI (acute kidney injury) Is this a current diagnosis for this admission?: Yes Plan: - Crea 2.6>2.8>2.3. baseline of around 1.2, non oliguric - Fena intrinsinc renal - will monitor daily crea - avoid nephrotoxic agents (6) Pneumonia Qualifiers: Pneumonia type: due to unspecified organism Is this a current diagnosis for this admission?: Yes Plan: -Patient presents with cough and shortness of breath of 3 days duration -CT chest showed left lower lobe opacity concerning for pneumonia bacterial or COVID - on ceftriaxone and azithromycin - blood culture negative - sputum culture eliz likely normal ankush -Albuterol inhaler as needed (7) Suspected COVID-19 virus infection Is this a current diagnosis for this admission?: Yes Plan: Patient presents with symptoms concerning for COVID-19 COVID-19 result NEGATIVE Started on dexamethasone, vitamin D, zinc, vitamin C (8) CAD (coronary artery disease) of bypass graft Is this a current diagnosis for this admission?: Yes Plan: - denies chest pain. Hx of CABG - trop 0.017>0.016 - aspirin resumed - continue losartan, carvedilol (9) Hyperkalemia Is this a current diagnosis for this admission?: Yes Plan: Possibly due to acute kidney injury Serum potassium was 5.7>5.2 No EKG changes noted consistent with hyperkalemia We will continue to monitor serum electrolytes (10) Hyponatremia Is this a current diagnosis for this admission?: Yes Plan: Likely due to volume depletion Serum sodium was 133>134.5 (11) History of DVT (deep vein thrombosis) Is this a current diagnosis for this admission?: Yes Plan: -xarelto resumed (12) Diabetes mellitus type 2 in obese Is this a current diagnosis for this admission?: Yes Plan: - long acting insulin resumed with SSi - accucheck - hypoglycemia protocoll (13) Morbid obesity Is this a current diagnosis for this admission?: Yes Plan: - BMI 53.2 - lifestyle modification advised - Time Time Spent with patient: 25-34 minutes Anticipated Discharge Disposition: Home, Self Care Anticipated Discharge Timeframe: within 48 hours
[2020-05-19] MEDS: RIVAROXABAN 10 MG TABLET PO SCH (17:14)
[2020-05-19] MEDS: ATORVASTATIN CALCIUM 80 MG TABLET PO SCH (22:35)
[2020-05-19] MEDS: CEFTRIAXONE 1 GM/D5W RTU 1 GM/50 ML RTUPB IV SCH (22:37)
[2020-05-19] MEDS: ONDANSETRON 4 MG TAB.RAPDIS PO PRN (23:36)
[2020-05-20] MEDS: OXYCODONE HCL IR 5 MG TABLET PO PRN ×3 (04:31→17:59)
[2020-05-20 05:21] LABS: ABSOLUTE BASOPHILS # (AUTO) 0.1 10^3/uL (0.0-0.2); ABSOLUTE EOSINOPHILS # (AUTO) 0.2 10^3/uL (0.0-0.6); ABSOLUTE LYMPHOCYTES (AUTO) 1.3 10^3/uL (0.5-4.7); ABSOLUTE MONOCYTES (AUTO) 0.3 10^3/uL (0.1-1.4); ABSOLUTE NEUT (AUTO) 3.5 10^3/uL (1.7-8.2); EOSINOPHILS % (AUTO) 3.9 % (0-6); HEMATOCRIT 29.8 % (36.0-47.0); MEAN CORPUSCULAR HEMOGLOBIN 28.2 pg (27.0-33.4); MEAN CORPUSCULAR HGB CONC 33.7 g/dL (32.0-36.0); MEAN CORPUSCULAR VOLUME 84 fl (80-97); PLATELET COUNT 235 10^3/uL (150-450); RED BLOOD COUNT 3.56 10^6/uL (3.72-5.28); RED CELL DISTRIBUTION WIDTH 17.7 % (11.5-14.0); SEGMENTED NEUTROPHILS % (AUTO) 64.1 % (42-78); TOTAL CELLS COUNTED % (AUTO) 100 %; WHITE BLOOD COUNT 5.4 10^3/uL (4.0-10.5)
[2020-05-20 05:41] LABS: ALBUMIN 3.9 g/dL (3.5-5.0); ALKALINE PHOSPHATASE 45 U/L (38-126); ANION GAP 11 (5-19); ASPARTATE AMINO TRANSFERASE 20 U/L (14-36); BILIRUBIN,DIRECT 0.4 mg/dL (0.0-0.4); BILIRUBIN,TOTAL 0.5 mg/dL (0.2-1.3); BLOOD UREA NITROGEN 66 mg/dL (7-20); CALCIUM 9.2 mg/dL (8.4-10.2); CARBON DIOXIDE 27 mmol/L (22-30); CHLORIDE 98 mmol/L (98-107); GLUCOSE 91 mg/dL (75-110); POTASSIUM 4.8 mmol/L (3.6-5.0); TOTAL PROTEIN 7.4 g/dL (6.3-8.2)
[2020-05-20] MEDS: GABAPENTIN 300 MG CAPSULE PO SCH ×3 (06:17→22:36)
[2020-05-20] MEDS: INSULIN LISPRO 100 UNIT/ML 3 ML VIAL SUBCUT SCH ×4 (08:14→22:34)
[2020-05-20] MEDS: ASPIRIN 81 MG TABLET, ENT COATED PO SCH (09:33)
[2020-05-20] MEDS: PANTOPRAZOLE SODIUM 40 MG VIAL IV SCH ×2 (09:33→22:36)
[2020-05-20] MEDS: CITALOPRAM HYDROBROMIDE 20 MG TABLET PO SCH (09:33)
[2020-05-20] MEDS: CARVEDILOL 3.125 MG TABLET PO SCH ×2 (09:33→22:36)
[2020-05-20] MEDS: CHOLECALCIFEROL (D3) 1,000 UNIT (25 MCG) TABLET PO SCH (09:34)
[2020-05-20] MEDS: ASCORBIC ACID 500 MG TABLET PO SCH ×2 (09:35→17:32)
[2020-05-20] MEDS: ZINC SULFATE 220 MG CAPSULE PO SCH (09:35)
[2020-05-20] MEDS: INSULIN GLARGINE,HUM.REC.ANLOG 1,000 UNIT/10 ML VIAL SUBCUT SCH (09:51)
[2020-05-20] MEDS: AZITHROMYCIN 500 MG in DEXTROSE 5%-WATER 250 ML IV SCH (09:52)
[2020-05-20] MEDS: ONDANSETRON 4 MG TAB.RAPDIS PO PRN ×2 (11:50→17:32)
[2020-05-20] MEDS ORDERED: BUMETANIDE INJ/PF 1 MG/4 ML SDV IV ONE (12:00)
[2020-05-20] MEDS: MICONAZOLE NITRATE 200 MG/SUPP (3 SUPP/BOX) VG SCH (13:11)
[2020-05-20] MEDS: METOCLOPRAMIDE HCL 10 MG TABLET PO SCH ×3 (13:21→22:36)
[2020-05-20] MEDS: SILVER SULFADIAZINE 1% CREAM 25 GM TP SCH (15:51)
[2020-05-20] MEDS: RIVAROXABAN 10 MG TABLET PO SCH (17:31)
--- NOTE | 2020-05-20 17:45 | PDOC PROGRESS REPORT ---
Subjective Progress Note for:: 05/20/20 Subjective:: HELDER SERNA is a 49 year old female with multiple comorbidities including A. fib status post ablation, congestive heart failure, DVT, hypertension, hyperlipidemia, type II DM, CAD s/p CABG, PAD status post right BKA and left AKA who now presents to the emergency department complaining of 3 days duration of shortness of breath with associated cough productive of scanty yellowish sputum. She reports that she was seen at [facility] on Sunday for similar complaint and she was given medication for nausea and vomiting and was sent back home after being tested for COVID-19(result is pending). Starting this morning she reported that the shortness of breath got worse and she has been feeling generally weak, and also endorses nausea and vomiting of ingested matter. She reports that she has a history of hemorrhoid and has been noticing bright red blood when she wipes the past week but denies any history of melena, hematochezia or hematemesis. She also reports a remote history of GI ulcer but denies any current abdominal pain and denies taking [id number] medications. She denies fever or chills. The emergency department stool guaiac was positive and patient was given 2 units of packed RBC. 05/18/20 D2 hospital stay. She was seen and examined at bedside. She is on 2L NC saturating 95%. She received 2 PRBC repeat Hgb 9.6. No melena/hematochezia. She reports that her SOB has improved since and she denies any chest pain. Spoke to Dr. Heath from surgery, he does not plan on scoping her today unless she develops massive GI bleed and significant hgb drop. 05/19/20 D3 hospital stay. She was seen and examined at bedside. Her breathing has improved, still on 2 L of nasal cannula. She denied any more episodes of bloody bowel movement or melena. Hemoglobin has been stable 9.6. Covid test is negative. Xarelto resumed today. 05/20/20 D4 hospital stay. She was seen and examined at bedside. She is off O2. No melena/hematochezia episode. However she still feels she is retaining fluid. Creatinine still trending up, received 1 dose of lasix yesterday. She also complained of nausea and stated that Reglan usually works better for her than Zofran. Reglan resumed. Reason For Visit: PNEUMONIA,SEVERE SYMPTOMATIC ANEMIA,ACUTE KIDNEY Physical Exam Vital Signs: Temp Pulse Resp BP Pulse Ox 98.2 F 63 18 114/59 L 100 05/20/20 15:47 05/20/20 15:47 05/20/20 15:47 05/20/20 15:47 05/20/20 15:47 Intake & Output 05/19/20 05/20/20 05/21/20 06:59 06:59 06:59 Intake Total 2090 800 770 Output Total 950 Balance 1140 800 770 Weight 80.7 kg 80.3 kg General appearance: PRESENT: no acute distress, cooperative Head exam: PRESENT: atraumatic, normocephalic Eye exam: PRESENT: EOMI, PERRLA Mouth exam: PRESENT: moist Neck exam: PRESENT: full ROM Respiratory exam: PRESENT: clear to auscultation amaya, symmetrical, unlabored Cardiovascular exam: PRESENT: RRR, +S1, +S2 Vascular exam: PRESENT: normal capillary refill GI/Abdominal exam: PRESENT: normal bowel sounds, soft. ABSENT: rebound, tenderness Extremities exam: PRESENT: other - Surgically absent lower limb secondary to AKA and BKA Neurological exam: PRESENT: alert, awake, oriented to person, oriented to place, oriented to time, oriented to situation Skin exam: PRESENT: normal color Results Laboratory Results: 05/20/20 04:47 05/20/20 04:47 05/20/20 05/20/20 04:47 04:47 WBC 5.4 RBC 3.56 L Hgb 10.0 L Hct 29.8 L MCV 84 MCH 28.2 MCHC 33.7 RDW 17.7 H Plt Count 235 Seg Neutrophils % 64.1 Sodium 135.7 L Potassium 4.8 Chloride 98 Carbon Dioxide 27 Anion Gap 11 BUN 66 H Creatinine 2.35 H Est GFR ( Amer) 26 L Glucose 91 Calcium 9.2 Total Bilirubin 0.5 AST 20 Alkaline Phosphatase 45 Total Protein 7.4 Albumin 3.9 05/17/20 23:30 Sputum Gram Stain - Final 05/17/20 23:30 Sputum Sputum Culture - Final Yeast, Not Eliz Albicans Normal Ankush 05/17/20 05/18/20 05/18/20 16:18 00:59 00:59 Creatine Kinase 178 H Troponin I 0.017 0.016 NT-Pro-B Natriuret Pep 33758 H Impressions: Chest X-Ray 05/17/20 15:05 IMPRESSION: Cardiomegaly. No acute findings. Chest CT 05/17/20 16:03 IMPRESSION: 1. Cardiomegaly with no sumeet pulmonary edema. 2. Very limited opacification in the left lower lobe. Cannot exclude very limited pneumonia versus atelectasis. 3. There are multiple small mediastinal nodes. Assessment and Plan - Diagnosis (1) Acute respiratory failure with hypoxia Is this a current diagnosis for this admission?: Yes Plan: -On presentation patient was saturating 88 to 90% on room air which improved to > with 2 L supplemental oxygen -Likely secondary to CHF, symptomatic anemia -CRP 11.4 high , Ferritin 296 high, BNP 50754 -1 dose of lasix and bumex. Creatinine is still trending up hence I am hesitant to start her on a scheduled dose of Lasix and Bumex. -She has subjectively lost weight since being admitted however she still feels that she is retaining fluid. -COVID negative - weaned off o2 (2) Acute exacerbation of CHF (congestive heart failure) Qualifiers: Heart failure type: combined systolic and diastolic Qualified Code(s): I50.43 - Acute on chronic combined systolic (congestive) and diastolic (congestive) heart failure Is this a current diagnosis for this admission?: Yes Plan: - last echo 2016 EF 51% with systolic and diastolic dysfunction - BNP 01518 - Crea 2.3>2.35 - Wt 98>80 kg - UO 850 x 24 hrs - continue Carvedilol, statin - will likely resume her bumex tomorrow (3) Acute on chronic anemia Is this a current diagnosis for this admission?: Yes Plan: -Patient presents with generalized weakness and is pale on physical exam -H&H on this presentation 7.2/21.6 from hemoglobin of 8.2 in March 2020 - s/p 2 u PRBC post H&H 9.6>9.8 - she has a history of anemia and ulcers. LAst colonoscopy a few years ago showed some polyps - continue to monitor (4) GI bleed Qualifiers: GI bleed type/associated pathology: anorectal hemorrhage Qualified Code(s): K62.5 - Hemorrhage of anus and rectum Is this a current diagnosis for this admission?: Yes Plan: - RESOLVED - hx of ulcers in the past, using iron supplements - has been having small amount of hemorrhoidal bleeding - last colonoscopy <5 years ago with diverticulosis - S/p 2 u PRBC - surgery have signed out. No plans for colonosopy or EGD per Dr. heath unless she continues to bleed or drops her hgb - continue protonix - aspirin resumed as she has significant cardiac history - xarelto resumed - maintain 2 large IV at all times (5) DANNI (acute kidney injury) Is this a current diagnosis for this admission?: Yes Plan: - Crea 2.6>2.8>2.3>2.3. baseline of around 1.2, non oliguric - Fena intrinsinc renal - plan to resume her bumex tomorrow - will monitor daily crea - avoid nephrotoxic agents (6) Pneumonia Qualifiers: Pneumonia type: due to unspecified organism Is this a current diagnosis for this admission?: Yes Plan: -Patient presents with cough and shortness of breath of 3 days duration -CT chest showed left lower lobe opacity concerning for pneumonia bacterial or COVID - on ceftriaxone and azithromycin - blood culture negative - sputum culture eliz likely normal ankush -Albuterol inhaler as needed (7) Suspected COVID-19 virus infection Is this a current diagnosis for this admission?: Yes Plan: Patient presents with symptoms concerning for COVID-19 COVID-19 result NEGATIVE (8) CAD (coronary artery disease) of bypass graft Is this a current diagnosis for this admission?: Yes Plan: - denies chest pain. Hx of CABG - trop 0.017>0.016 - aspirin resumed - continue losartan, carvedilol, statin (9) Hyperkalemia Is this a current diagnosis for this admission?: Yes Plan: Possibly due to acute kidney injury Serum potassium was 5.7>5.2 No EKG changes noted consistent with hyperkalemia We will continue to monitor serum electrolytes (10) Hyponatremia Is this a current diagnosis for this admission?: Yes Plan: Likely due to volume depletion Serum sodium was 133>134.5 (11) History of DVT (deep vein thrombosis) Is this a current diagnosis for this admission?: Yes Plan: -xarelto resumed (12) Diabetes mellitus type 2 in obese Is this a current diagnosis for this admission?: Yes Plan: - long acting insulin resumed with SSi - accucheck - hypoglycemia protocoll (13) Morbid obesity Is this a current diagnosis for this admission?: Yes Plan: - BMI 53.2 - lifestyle modification advised - Time Time Spent with patient: 25-34 minutes Anticipated Discharge Disposition: Home, Self Care Anticipated Discharge Timeframe: to be determined
[2020-05-20] MEDS: ATORVASTATIN CALCIUM 80 MG TABLET PO SCH (22:36)
[2020-05-20] MEDS: CEFTRIAXONE 1 GM/D5W RTU 1 GM/50 ML RTUPB IV SCH (22:37)
[2020-05-21] MEDS: OXYCODONE HCL IR 5 MG TABLET PO PRN ×2 (01:24→09:16)
[2020-05-21 05:34] LABS: ABSOLUTE EOSINOPHILS # (AUTO) 0.2 10^3/uL (0.0-0.6); ABSOLUTE LYMPHOCYTES (AUTO) 1.3 10^3/uL (0.5-4.7); ABSOLUTE MONOCYTES (AUTO) 0.4 10^3/uL (0.1-1.4); ABSOLUTE NEUT (AUTO) 3.1 10^3/uL (1.7-8.2); BASOPHILS % (AUTO) 0.9 % (0-2); EOSINOPHILS % (AUTO) 3.8 % (0-6); HEMATOCRIT 28.6 % (36.0-47.0); HEMOGLOBIN 9.7 g/dL (12.0-15.5); LYMPHOCYTES % (AUTO) 25.3 % (13-45); MEAN CORPUSCULAR HEMOGLOBIN 28.4 pg (27.0-33.4); MEAN CORPUSCULAR HGB CONC 33.8 g/dL (32.0-36.0); MEAN CORPUSCULAR VOLUME 84 fl (80-97); MONOCYTES % (AUTO) 7.5 % (3-13); PLATELET COUNT 226 10^3/uL (150-450); RED CELL DISTRIBUTION WIDTH 18.3 % (11.5-14.0); SEGMENTED NEUTROPHILS % (AUTO) 62.5 % (42-78); TOTAL CELLS COUNTED % (AUTO) 100 %
[2020-05-21 05:54] LABS: ALBUMIN 3.6 g/dL (3.5-5.0); ALKALINE PHOSPHATASE 42 U/L (38-126); ANION GAP 10 (5-19); ASPARTATE AMINO TRANSFERASE 19 U/L (14-36); BILIRUBIN,DIRECT 0.4 mg/dL (0.0-0.4); BILIRUBIN,TOTAL 0.5 mg/dL (0.2-1.3); BLOOD UREA NITROGEN 62 mg/dL (7-20); CARBON DIOXIDE 28 mmol/L (22-30); CHLORIDE 99 mmol/L (98-107); GLUCOSE 96 mg/dL (75-110); POTASSIUM 4.4 mmol/L (3.6-5.0); TOTAL PROTEIN 7.1 g/dL (6.3-8.2)
[2020-05-21] MEDS: GABAPENTIN 300 MG CAPSULE PO SCH (06:33)
[2020-05-21] MEDS: INSULIN LISPRO 100 UNIT/ML 3 ML VIAL SUBCUT SCH ×2 (08:02→12:10)
[2020-05-21] MEDS: CITALOPRAM HYDROBROMIDE 20 MG TABLET PO SCH (09:16)
[2020-05-21] MEDS: METOCLOPRAMIDE HCL 10 MG TABLET PO SCH (09:17)
[2020-05-21] MEDS: ZINC SULFATE 220 MG CAPSULE PO SCH (09:17)
[2020-05-21] MEDS: ASPIRIN 81 MG TABLET, ENT COATED PO SCH (09:17)
[2020-05-21] MEDS: ONDANSETRON 4 MG TAB.RAPDIS PO PRN (09:17)
[2020-05-21] MEDS: CHOLECALCIFEROL (D3) 1,000 UNIT (25 MCG) TABLET PO SCH (09:18)
[2020-05-21] MEDS: ASCORBIC ACID 500 MG TABLET PO SCH (09:18)
[2020-05-21] MEDS: CARVEDILOL 3.125 MG TABLET PO SCH (09:18)
[2020-05-21] MEDS: INSULIN GLARGINE,HUM.REC.ANLOG 1,000 UNIT/10 ML VIAL SUBCUT SCH (09:19)
[2020-05-21] MEDS: SILVER SULFADIAZINE 1% CREAM 25 GM TP SCH (09:20)
[2020-05-21] MEDS: MICONAZOLE NITRATE 200 MG/SUPP (3 SUPP/BOX) VG SCH (12:19)
[2020-05-21 12:40] VITALS: BP 120/71
--- NOTE | 2020-05-22 06:50 | PDOC DISCHARGE SUMMARY ---
Impression - Admit/DC Date/PCP Admission Date/Primary Care Provider: 05/17/20 22:08 MITESH CAICEDO MD Discharge Date: 05/22/20 - Discharge Diagnosis (1) Acute respiratory failure with hypoxia Is this a current diagnosis for this admission?: Yes (2) Acute exacerbation of CHF (congestive heart failure) Is this a current diagnosis for this admission?: Yes (3) Acute on chronic anemia Is this a current diagnosis for this admission?: Yes (4) GI bleed Is this a current diagnosis for this admission?: Yes (5) DANNI (acute kidney injury) Is this a current diagnosis for this admission?: Yes (6) Pneumonia Is this a current diagnosis for this admission?: Yes (7) Suspected COVID-19 virus infection Is this a current diagnosis for this admission?: Yes (8) CAD (coronary artery disease) of bypass graft Is this a current diagnosis for this admission?: Yes (9) Hyperkalemia Is this a current diagnosis for this admission?: Yes (10) Hyponatremia Is this a current diagnosis for this admission?: Yes (11) History of DVT (deep vein thrombosis) Is this a current diagnosis for this admission?: Yes (12) Diabetes mellitus type 2 in obese Is this a current diagnosis for this admission?: Yes (13) Morbid obesity Is this a current diagnosis for this admission?: Yes - Assessment Summary: 1) Acute respiratory failure with hypoxia Is this a current diagnosis for this admission?: Yes Plan: -On presentation patient was saturating 88 to 90% on room air which improved to > with 2 L supplemental oxygen -Likely secondary to CHF, symptomatic anemia -CRP 11.4 high , Ferritin 296 high, BNP 62290 -1 dose of lasix and bumex. Creatinine is still trending up hence I am hesitant to start her on a scheduled dose of Lasix and Bumex. -She has subjectively lost weight since being admitted however she still feels that she is retaining fluid. -COVID negative - weaned off o2 (2) Acute exacerbation of CHF (congestive heart failure) Qualifiers: Heart failure type: combined systolic and diastolic Qualified Code(s): I50.43 - Acute on chronic combined systolic (congestive) and diastolic (congestive) heart failure Is this a current diagnosis for this admission?: Yes Plan: - last echo 2016 EF 51% with systolic and diastolic dysfunction - BNP 54398 - Crea 2.3>2.35 - Wt 98>80 kg - UO 850 x 24 hrs - continue Carvedilol, statin - will likely resume her bumex tomorrow (3) Acute on chronic anemia Is this a current diagnosis for this admission?: Yes Plan: -Patient presents with generalized weakness and is pale on physical exam -H&H on this presentation 7.2/21.6 from hemoglobin of 8.2 in March 2020 - s/p 2 u PRBC post H&H 9.6>9.8 - she has a history of anemia and ulcers. LAst colonoscopy a few years ago showed some polyps - continue to monitor (4) GI bleed Qualifiers: GI bleed type/associated pathology: anorectal hemorrhage Qualified Code(s): K62.5 - Hemorrhage of anus and rectum Is this a current diagnosis for this admission?: Yes Plan: - RESOLVED - hx of ulcers in the past, using iron supplements - has been having small amount of hemorrhoidal bleeding - last colonoscopy <5 years ago with diverticulosis - S/p 2 u PRBC - surgery have signed out. No plans for colonosopy or EGD per Dr. kapadia unless she continues to bleed or drops her hgb - continue protonix - aspirin resumed as she has significant cardiac history - xarelto resumed - maintain 2 large IV at all times (5) DANNI (acute kidney injury) Is this a current diagnosis for this admission?: Yes Plan: - Crea 2.6>2.8>2.3>2.3. baseline of around 1.2, non oliguric - Fena intrinsinc renal - plan to resume her bumex tomorrow - will monitor daily crea - avoid nephrotoxic agents (6) Pneumonia Qualifiers: Pneumonia type: due to unspecified organism Is this a current diagnosis for this admission?: Yes Plan: -Patient presents with cough and shortness of breath of 3 days duration -CT chest showed left lower lobe opacity concerning for pneumonia bacterial or COVID - on ceftriaxone and azithromycin - blood culture negative - sputum culture eliz likely normal ankush -Albuterol inhaler as needed (7) Suspected COVID-19 virus infection Is this a current diagnosis for this admission?: Yes Plan: Patient presents with symptoms concerning for COVID-19 COVID-19 result NEGATIVE (8) CAD (coronary artery disease) of bypass graft Is this a current diagnosis for this admission?: Yes Plan: - denies chest pain. Hx of CABG - trop 0.017>0.016 - aspirin resumed - continue losartan, carvedilol, statin (9) Hyperkalemia Is this a current diagnosis for this admission?: Yes Plan: Possibly due to acute kidney injury Serum potassium was 5.7>5.2 No EKG changes noted consistent with hyperkalemia We will continue to monitor serum electrolytes (10) Hyponatremia Is this a current diagnosis for this admission?: Yes Plan: Likely due to volume depletion Serum sodium was 133>134.5 (11) History of DVT (deep vein thrombosis) Is this a current diagnosis for this admission?: Yes Plan: -xarelto resumed (12) Diabetes mellitus type 2 in obese Is this a current diagnosis for this admission?: Yes Plan: - long acting insulin resumed with SSi - accucheck - hypoglycemia protocoll (13) Morbid obesity Is this a current diagnosis for this admission?: Yes Plan: - BMI 53.2 - lifestyle modification advised - Additional Information Resuscitation Status: Full Code Discharge Diet: Cardiac, Diabetic Discharge Activity: Activity As Tolerated, Balance Activity w/Rest Referrals: MARQUITA BENOIT FNP-C [NO LOCAL MD] - 05/26/20 2:30 pm Prescriptions: Bumetanide [Bumex 1 mg Tablet] 2 mg PO BID 30 Days #60 tablet Home Medications: Aspirin [Adult Low Dose Aspirin EC] 81 mg PO DAILY 07/02/19 Buspirone HCl [Buspar 15 mg Tablet] 7.5 mg PO Q12 07/02/19 Carvedilol [Coreg 3.125 mg Tablet] 3.125 mg PO Q12 07/02/19 Fenofibrate Nanocrystallized [Tricor 145 mg Tablet] 145 mg PO WBRKFST 07/02/19 Metoclopramide HCl [Reglan 10 mg Tablet] 10 mg PO QID 07/02/19 Pantoprazole Sodium [Protonix [address] Tablet] 40 mg PO DAILY 07/02/19 Atorvastatin Calcium [Lipitor 80 mg Tablet] 80 mg PO QHS tablet 07/04/19 Nitroglycerin [Nitrostat 0.4 mg (1/150 Gr) Tabs 25/Bottle] 1 tab SL Q5MP PRN 10/24/19 Acetaminophen [Tylenol 325 mg Tablet] 650 mg PO Q6HP PRN 04/01/20 Ascorbic Acid [Vitamin C 500 mg Tablet] 500 mg PO DAILY 04/01/20 Ferrous Sulfate [Feosol 325 mg Tablet] 325 mg PO WBRKFST 04/01/20 Insulin Glargine,Hum.rec.anlog [Lantus Insulin 100 Unit/1 ml 10 ml] 20 units SQ DAILY 04/01/20 Insulin Regular, Human [Humulin R (Reg) Insulin 100 unit/mL] 8 units SQ AC 04/01/20 Losartan Potassium [Cozaar 25 mg Tablet] 25 mg PO DAILY 04/01/20 Magnesium Oxide [Mag-Ox 400 mg Tablet] 400 mg PO BID 04/01/20 Multivitamin [Multiple Vitamins] 1 tab PO DAILY 04/01/20 Rivaroxaban [Xarelto] 20 mg PO QPM 04/01/20 Sennosides/Docusate Sodium [Senna Plus 8.6-50 mg Tablet] 1 tab PO BID MDD HOLD FOR LOOSE STOOL 04/01/20 Spironolactone [Aldactone 25 mg Tablet] 25 mg PO DAILY 04/01/20 Baclofen [Baclofen 10 mg Tablet] 10 mg PO TIDP PRN tablet 05/21/20 Bumetanide [Bumex 1 mg Tablet] 2 mg PO BID 30 Days #60 tablet 05/21/20 Citalopram Hydrobromide [Celexa 20 mg Tablet] 40 mg PO DAILY tablet 05/21/20 Gabapentin [Neurontin 300 mg Capsule] 300 mg PO Q8 capsule 05/21/20 Miconazole Nitrate [Monistat-3 Supp.vag (3 Supp/Box)] 200 mg VG DAILY box 05/21/20 Silver Sulfadiazine [Silvadene 1% Cream 25 gm] 1 applic TP DAILY tube 05/21/20 History of Present Illiness History of Present Illness: HELDER SERNA is a 49 year old female, with multiple comorbidities including A. fib status post ablation, congestive heart failure, DVT, hypertension, hyperlipidemia, type II DM, CAD s/p CABG, PAD status post right BKA and left AKA who now presents to the emergency department complaining of 3 days duration of shortness of breath with associated cough productive of scanty yellowish sputum. She reports that she was seen at [facility] on [address] for similar complaint and she was given medication for nausea and vomiting and was sent back home after being tested for COVID-19(result is pending). Starting this morning she reported that the shortness of breath got worse and she has been feeling generally weak, and also endorses nausea and vomiting of ingested matter. She reports that she has a history of hemorrhoid and has been noticing bright red blood when she wipes the past week but denies any history of melena, hematochezia or hematemesis. She also reports a remote history of GI ulcer but denies any current abdominal pain and denies taking [id number] medications. She denies fever or chills. The emergency department stool guaiac was positive and patient was given 2 units of packed RBC. Hospital Course Hospital Course: 05/18/20 D2 hospital stay. She was seen and examined at bedside. She is on 2L NC saturating 95%. She received 2 PRBC repeat Hgb 9.6. No melena/hematochezia. She reports that her SOB has improved since and she denies any chest pain. Spoke to Dr. Kapadia from surgery, he does not plan on scoping her today unless she develops massive GI bleed and significant hgb drop. 05/19/20 D3 hospital stay. She was seen and examined at bedside. Her breathing has improved, still on 2 L of nasal cannula. She denied any more episodes of bloody bowel movement or melena. Hemoglobin has been stable 9.6. Covid test is negative. Xarelto resumed today. 05/20/20 D4 hospital stay. She was seen and examined at bedside. She is off O2. No melena/hematochezia episode. However she still feels she is retaining fluid. Creatinine still trending up, received 1 dose of lasix yesterday. She also complained of nausea and stated that Reglan usually works better for her than Zofran. Reglan resumed. 05/21/20. She was seen and examined at bedside. She has lost water weight and her SOB has greatly improved. Creatinine has stabilized although not back to baseline. She was discharged on her home doses of bumex and was advised to follow up within 1 week with her primary care to check her CMP and volume status. Rivaroxaban resumed on discharge as well. Physical Exam Vital Signs: Temp Pulse Resp BP Pulse Ox 98.1 F 67 18 120/71 97 05/21/20 12:37 05/21/20 12:37 05/21/20 12:37 05/21/20 12:37 05/21/20 12:37 Intake & Output 05/20/20 05/21/20 05/22/20 06:59 06:59 06:59 Intake Total 850 1270 Balance 850 1270 Weight 80.3 kg 78.9 kg General appearance: PRESENT: no acute distress, cooperative, morbidly obese Head exam: PRESENT: atraumatic, normocephalic Eye exam: PRESENT: EOMI, PERRLA Mouth exam: PRESENT: moist Neck exam: PRESENT: full ROM Respiratory exam: PRESENT: clear to auscultation amaya, symmetrical, unlabored Cardiovascular exam: PRESENT: RRR, +S1, +S2 Pulses: PRESENT: +2 pedal pulses bilateral GI/Abdominal exam: PRESENT: normal bowel sounds, soft. ABSENT: rebound, tenderness Extremities exam: PRESENT: other - surgically absent right and left lower leg Neurological exam: PRESENT: alert, awake, oriented to person, oriented to place, oriented to time Psychiatric exam: PRESENT: normal mood Skin exam: PRESENT: normal color Results Laboratory Results: WBC 5.0 10^3/uL (4.0-10.5) 05/21/20 05:15 RBC 3.40 10^6/uL (3.72-5.28) L 05/21/20 05:15 Hgb 9.7 g/dL (12.0-15.5) L 05/21/20 05:15 Hct 28.6 % (36.0-47.0) L 05/21/20 05:15 MCV 84 fl (80-97) 05/21/20 05:15 MCH 28.4 pg (27.0-33.4) 05/21/20 05:15 MCHC 33.8 g/dL (32.0-36.0) 05/21/20 05:15 RDW 18.3 % (11.5-14.0) H 05/21/20 05:15 Plt Count 226 10^3/uL (150-450) 05/21/20 05:15 Lymph % (Auto) 25.3 % (13-45) 05/21/20 05:15 [place] % (Auto) 7.5 % (3-13) 05/21/20 05:15 Eos % (Auto) 3.8 % (0-6) 05/21/20 05:15 Baso % (Auto) 0.9 % (0-2) 05/21/20 05:15 Absolute Neuts (auto) 3.1 10^3/uL (1.7-8.2) 05/21/20 05:15 Absolute Lymphs (auto) 1.3 10^3/uL (0.5-4.7) 05/21/20 05:15 Absolute Monos (auto) 0.4 10^3/uL (0.1-1.4) 05/21/20 05:15 Absolute Eos (auto) 0.2 10^3/uL (0.0-0.6) 05/21/20 05:15 Absolute Basos (auto) 0.0 10^3/uL (0.0-0.2) 05/21/20 05:15 Seg Neutrophils % 62.5 % (42-78) 05/21/20 05:15 Platelet Estimate Cancelled 05/18/20 07:46 PT 17.1 SEC (11.4-15.4) H 05/17/20 16:18 INR 1.38 05/17/20 16:18 APTT 35.1 SEC (23.5-35.8) 05/17/20 16:18 Sodium 137.4 mmol/L (137-145) 05/21/20 05:15 Potassium 4.4 mmol/L (3.6-5.0) 05/21/20 05:15 Chloride 99 mmol/L (98-107) 05/21/20 05:15 Carbon Dioxide 28 mmol/L (22-30) 05/21/20 05:15 Anion Gap 10 (5-19) 05/21/20 05:15 BUN 62 mg/dL (7-20) H 05/21/20 05:15 Creatinine 2.23 mg/dL (0.52-1.25) H 05/21/20 05:15 Est GFR ( Amer) 28 (>60) L 05/21/20 05:15 Est GFR (MDRD) Non-Af 23 (>60) L 05/21/20 05:15 Glucose 96 mg/dL (75-110) 05/21/20 05:15 POC Glucose 178 mg/dL (70-110) H 05/21/20 11:50 Calcium 9.0 mg/dL (8.4-10.2) 05/21/20 05:15 Ferritin 296.00 ng/mL (11.1-264.0) H 05/18/20 00:59 Total Bilirubin 0.5 mg/dL (0.2-1.3) 05/21/20 05:15 Direct Bilirubin 0.4 mg/dL (0.0-0.4) 05/21/20 05:15 Neonat Total Bilirubin Not Reportable 05/21/20 05:15 Neonat Direct Bilirubin Not Reportable 05/21/20 05:15 Neonat Indirect Bili Not Reportable 05/21/20 05:15 AST 19 U/L (14-36) 05/21/20 05:15 ALT 7 U/L (<35) 05/21/20 05:15 Alkaline Phosphatase 42 U/L (38-126) 05/21/20 05:15 Lactate Dehydrogenase 226 U/L (120-246) 05/18/20 00:59 Creatine Kinase 178 U/L (30-135) H 05/18/20 00:59 Troponin I 0.016 ng/mL 05/18/20 00:59 C-Reactive Protein 11.4 mg/L (<10.0) H 05/18/20 00:59 NT-Pro-B Natriuret Pep 37566 pg/mL (<125) H 05/17/20 16:18 Total Protein 7.1 g/dL (6.3-8.2) 05/21/20 05:15 Albumin 3.6 g/dL (3.5-5.0) 05/21/20 05:15 Lipase 36.9 U/L (23-300) 05/17/20 16:18 Urine Color YELLOW 05/17/20 23:30 Urine Appearance CLEAR 05/17/20 23:30 Urine pH 5.0 (5.0-9.0) 05/17/20 23:30 Ur Specific [place] 1.010 05/17/20 23:30 Urine Protein 30 mg/dL (NEGATIVE) H 05/17/20 23:30 Urine Glucose (UA) NEGATIVE mg/dL (NEGATIVE) 05/17/20 23:30 Urine Ketones NEGATIVE mg/dL (NEGATIVE) 05/17/20 23:30 Urine Blood NEGATIVE (NEGATIVE) 05/17/20 23:30 Urine Nitrite (Reflex) NEGATIVE (NEGATIVE) 05/17/20 23:30 Urine Bilirubin NEGATIVE (NEGATIVE) 05/17/20 23:30 Urine Urobilinogen NEGATIVE mg/dL (<2.0) 05/17/20 23:30 Leukocyte Esterase Rfl NEGATIVE (NEGATIVE) 05/17/20 23:30 Urine RBC (Auto) 1 /HPF 05/17/20 23:30 U Hyaline Cast (Auto) 79 /LPF 05/17/20 23:30 Urine Bacteria (Auto) TRACE /HPF 05/17/20 23:30 Urine WBC (Reflex) 1 /HPF 05/17/20 23:30 Squamous Epi Cells Auto 1 /HPF 05/17/20 23:30 Urine Creatinine 35.3 mg/dL (15-278) 05/17/20 23:30 Urine Sodium 22 mmol/L (30-90) L 05/17/20 23:30 Urine Ascorbic Acid 40 (NEGATIVE) H 05/17/20 23:30 Influenza A (Rapid) NEGATIVE (NEGATIVE) 05/17/20 16:25 Influenza B (Rapid) NEGATIVE (NEGATIVE) 05/17/20 16:25 Slides for Path Review Cancelled 05/18/20 07:46 Blood Type O POSITIVE 05/17/20 16:58 Antibody Screen NEGATIVE 05/17/20 16:58 Crossmatch See Detail 05/17/20 16:58 05/17/20 05/18/20 16:18 00:59 Troponin I 0.017 0.016 NT-Pro-B Natriuret Pep 71183 H Impressions: Chest X-Ray 05/17/20 15:05 IMPRESSION: Cardiomegaly. No acute findings. Chest CT 05/17/20 16:03 IMPRESSION: 1. Cardiomegaly with no sumeet pulmonary edema. 2. Very limited opacification in the left lower lobe. Cannot exclude very limited pneumonia versus atelectasis. 3. There are multiple small mediastinal nodes. Plan Plan of Treatment: - continue home dose of bumex. She would need a repeat CMP to check her crea. Crea on discharge was 2.3 - follow up with PCP Congestive Heart Failure You have been diagnosed as having congestive heart failure (CHF). CHF occurs when the heart is unable to pump blood efficiently, leading to fluid buildup in the veins and lungs. Typical symptoms are swelling of the legs, shortness of breath on minor exertion, and fatigue. CHF is treated with salt restriction, medicine to eliminate excess water and salt from the body, and medication to help the heart contract more efficiently. Eliminate added salt and salty foods in your diet. Decrease your activity until excess fluid has been eliminated. It will also be helpful to raise the head of your bed so you can sleep more easily. Keep a daily record of your weight. This will help your physician monitor your progress. Once extra water has been eliminated, light aerobic exercise daily -- such as walking -- will be helpful (unless your physician has told you to restrict activity for other reasons). Be sure to follow up with the physician as instructed. Contact the doctor at once if you worsen in any way. Stroke Is this a Stroke Patient?: No Acute Heart Failure Is this a Heart Failure Patient?: Yes Documentation of LVEF assessment?: Yes LVEF: LVEF Greater Than 40% Anticoagulant Therapy: N/A Discharged on Evidence-Based Beta Blockers: Yes Discharged on ARNI?: No-Document Contraindications Reason(s) not discharged on ARNI: Impaired/worsening renal functions Discharged on ARB?: Yes Discharged on ACEI?: N/A Discharged on ARB For LVEF <35%, discharged on Aldosterone Antagonist?: N/A (LVEF > or = 35%) Follow-up Appointment scheduled within 7 days?: Yes
== END 2020-05-21 13:41 | disposition home or self-care (01) | DRG 377 ==
LOC: ER 14:21 → EH 22:08 → 3N 05-18 02:33 → 3W 05-19 19:20
PROVIDERS: ADMIT Student in an Organized Health Care Education/Training Program; ATTEND Internal Medicine
PROC: 30233N1 Transfusion of Nonautologous Red Blood Cells into Peripheral Vein, Percutaneous Approach (ICD-10-PCS; principal; 2020-05-17)
DX: K62.5 Hemorrhage of anus and rectum (principal); J96.01 Acute respiratory failure with hypoxia; I50.43 Acute on chronic combined systolic (congestive) and diastolic (congestive) heart failure; J18.9 Pneumonia, unspecified organism; N17.9 Acute kidney failure, unspecified; E87.1 Hypo-osmolality and hyponatremia; Z68.43 Body mass index [BMI] 50.0-59.9, adult; I11.0 Hypertensive heart disease with heart failure; E11.51 Type 2 diabetes mellitus with diabetic peripheral angiopathy without gangrene; Z89.612 Acquired absence of left leg above knee; D64.9 Anemia, unspecified; I25.10 Atherosclerotic heart disease of native coronary artery without angina pectoris; E87.5 Hyperkalemia; E66.01 Morbid (severe) obesity due to excess calories; E78.5 Hyperlipidemia, unspecified; J44.9 Chronic obstructive pulmonary disease, unspecified; K21.9 Gastro-esophageal reflux disease without esophagitis; K44.9 Diaphragmatic hernia without obstruction or gangrene; M19.90 Unspecified osteoarthritis, unspecified site; F32.9 Major depressive disorder, single episode, unspecified; R16.1 Splenomegaly, not elsewhere classified; Z95.1 Presence of aortocoronary bypass graft; Z86.718 Personal history of other venous thrombosis and embolism; Z79.82 Long term (current) use of aspirin; Z79.4 Long term (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 of insulin; Z79.899 Other long term (current) drug therapy; Z87.11 Personal history of peptic ulcer disease; I25.2 Old myocardial infarction; Z89.511 Acquired absence of right leg below knee; Z87.891 Personal history of nicotine dependence; Z83.3 Family history of diabetes mellitus; Z82.49 Family history of ischemic heart disease and other diseases of the circulatory system; Z88.8 Allergy status to other drugs, medicaments and biological substances
CPT/HCPCS: 36415; 36430; 71045; 71250; 80053; 81001; 82550; 82570; 82728; 82962; 83615; 83690; 83880; 84300; 84484; 85025; 85610; 85730; 86140; 86850; 86900; 86901; 86920; 87040; 87070; 87205; 87804; 93005; 93010; 93306; 96360; 96361; 99285; C9113; J0456; J0696; J1100; J1815; J1940; J3490; J7040; J7050; J7060; J7120; P9016; S0119

== ENCOUNTER 2020-05-31 08:21 | Emergency (ER) | payer MEDICARE ==
[2020-05-31] MEDS ORDERED: NORMAL SALINE 1000 ML 1,000 ML IV ONE (08:59)
[2020-05-31 09:06] LABS: ABSOLUTE BASOPHILS # (AUTO) 0.1 10^3/uL (0.0-0.2); ABSOLUTE EOSINOPHILS # (AUTO) 0.1 10^3/uL (0.0-0.6); ABSOLUTE LYMPHOCYTES (AUTO) 0.9 10^3/uL (0.5-4.7); ABSOLUTE MONOCYTES (AUTO) 0.5 10^3/uL (0.1-1.4); ABSOLUTE NEUT (AUTO) 7.2 10^3/uL (1.7-8.2); EOSINOPHILS % (AUTO) 1.7 % (0-6); HEMATOCRIT 32.8 % (36.0-47.0); LYMPHOCYTES % (AUTO) 9.8 % (13-45); MEAN CORPUSCULAR HEMOGLOBIN 28.4 pg (27.0-33.4); MEAN CORPUSCULAR HGB CONC 33.7 g/dL (32.0-36.0); MEAN CORPUSCULAR VOLUME 85 fl (80-97); MONOCYTES % (AUTO) 5.5 % (3-13); PLATELET COUNT 255 10^3/uL (150-450); RED BLOOD COUNT 3.88 10^6/uL (3.72-5.28); RED CELL DISTRIBUTION WIDTH 17.5 % (11.5-14.0); TOTAL CELLS COUNTED % (AUTO) 100 %; WHITE BLOOD COUNT 8.8 10^3/uL (4.0-10.5)
[2020-05-31 09:21] LABS: INTERNATIONAL RATION (INR) 1.57; PROTHROMBIN TIME 18.9 SEC (11.4-15.4)
[2020-05-31 09:22] LABS: PARTIAL THROMBOPLASTIN TIME 39.8 SEC (23.5-35.8)
[2020-05-31 09:29] LABS: ALBUMIN 3.8 g/dL (3.5-5.0); ALKALINE PHOSPHATASE 54 U/L (38-126); ANION GAP 14 (5-19); ASPARTATE AMINO TRANSFERASE 21 U/L (14-36); BILIRUBIN,DIRECT 0.3 mg/dL (0.0-0.4); BILIRUBIN,TOTAL 0.5 mg/dL (0.2-1.3); BLOOD UREA NITROGEN 48 mg/dL (7-20); CALCIUM 9.1 mg/dL (8.4-10.2); CARBON DIOXIDE 23 mmol/L (22-30); CHLORIDE 102 mmol/L (98-107); CREATINE KINASE 154 U/L (30-135); GLUCOSE 315 mg/dL (75-110); POTASSIUM 4.9 mmol/L (3.6-5.0); TOTAL PROTEIN 6.9 g/dL (6.3-8.2)
[2020-05-31 09:38] LABS: VENOUS BLOOD BASE EXCESS -0.7 mmol/L; VENOUS BLOOD HCO3 24.6 mmol/L (20-32); VENOUS BLOOD PCO2 42.9 mmHg (35-63); VENOUS BLOOD PH 7.38 (7.30-7.42)
[2020-05-31 10:15] LABS: APPEARANCE,URINE CLEAR; BILIRUBIN,URINE NEGATIVE (NEGATIVE); COLOR,URINE YELLOW; GLUCOSE, URINE 50 mg/dL (NEGATIVE); KETONES,URINE NEGATIVE (NEGATIVE); LEUKOCYTE ESTERASE,URINE NEGATIVE (NEGATIVE); NITRITE,URINE NEGATIVE (NEGATIVE); PROTEIN,URINE >=500 mg/dL (NEGATIVE); URINE SPECIFIC GRAVITY 1.017; UROBILINOGEN,URINE NEGATIVE mg/dL (<2.0)
[2020-05-31 10:17] LABS: TROPONIN I 0.014 ng/mL
[2020-05-31 10:29] LABS: URINE AMPHETAMINES SCREEN NEGATIVE; URINE BARBITURATES SCREEN NEGATIVE; URINE BENZODIAZEPINES SCREEN NEGATIVE; URINE COCAINE SCREEN NEGATIVE; URINE MARIJUANA (THC) SCREEN NEGATIVE; URINE METHADONE SCREEN NEGATIVE; URINE PHENCYCLIDINE SCREEN NEGATIVE
--- NOTE | 2020-05-31 10:31 | RADIOLOGY REPORT (SQ) ---
EXAM DESCRIPTION: CT HEAD WITHOUT IMAGES COMPLETED DATE/TIME: 05/31/2020 10:21 am REASON FOR STUDY: trauma/fall/headache COMPARISON: 04/01/2020 TECHNIQUE: Axial images acquired through the brain without intravenous contrast. Images reviewed wi th bone, brain and subdural windows. Additional sagittal and coronal reconstructions were generated. Images stored on PACS. All CT scanners at this facility use dose modulation, iterative reconstruction, and/or weight based d osing when appropriate to reduce radiation dose to as low as reasonably achievable (ALARA). [facility]: Dose Right [facility]: CareDose [facility]: Dose Right [facility]: Teradose 4D [facility]: [employer] RADIATION DOSE: CT Rad equipment meets quality standard of care and radiation dose reduction techniq ues were employed. CTDIvol: 53.2 mGy. DLP: 1124 mGy-cm. mGy. LIMITATIONS: None. FINDINGS: VENTRICLES: Normal size and contour. CEREBRUM: No masses. No hemorrhage. No midline shift. No evidence for acute infarction. Normal gra y/white matter differentiation. No areas of low density in the white matter. CEREBELLUM: No masses. No hemorrhage. No alteration of density. No evidence for acute infarction. EXTRAAXIAL SPACES: No fluid collections. No masses. ORBITS AND GLOBE: No intra- or extraconal masses. Normal contour of globe without masses. CALVARIUM: No fracture. PARANASAL SINUSES: No fluid or mucosal thickening. SOFT TISSUES: No mass or hematoma. OTHER: No other significant finding. IMPRESSION: NORMAL BRAIN CT WITHOUT CONTRAST. EVIDENCE OF ACUTE STROKE: NO. COMMENT: Quality ID # [id number]: Final reports with documentation of one or more dose reduction techniques (e.g., Automated exposure control, adjustment of the mA and/or kV according to patient size, use of iterative reconstruction technique) TECHNICAL DOCUMENTATION: JOB ID: [id number] 2010 [employer]- All Rights Reserved Reading location - IP/workstation name: [email or web address]
--- NOTE | 2020-05-31 10:38 | RADIOLOGY REPORT (SQ) ---
EXAM DESCRIPTION: CT CERVICAL SPINE WITHOUT IMAGES COMPLETED DATE/TIME: 05/31/2020 10:21 am REASON FOR STUDY: trauma/fall/neck pain COMPARISON: None. TECHNIQUE: Axial images acquired through the cervical spine without intravenous contrast. Images re viewed with lung, soft tissue and bone windows. Reconstructed coronal and sagittal MPR images review ed. Images stored on PACS. All CT scanners at this facility use dose modulation, iterative reconstruction, and/or weight based d osing when appropriate to reduce radiation dose to as low as reasonably achievable (ALARA). [facility]: Dose Right [facility]: CareDose [facility]: Dose Right [facility]: Teradose 4D [facility]: [employer] RADIATION DOSE: CT Rad equipment meets quality standard of care and radiation dose reduction techniq ues were employed. CTDIvol: 23.6 mGy. DLP: 451 mGy-cm. mGy. LIMITATIONS: Motion. FINDINGS: ALIGNMENT: Anatomic. MINERALIZATION: Normal. VERTEBRAL BODIES: No fractures or dislocation. DISCS: No significant disc disease. FACETS, LATERAL MASSES, POSTERIOR ELEMENTS: No fractures. No dislocation. No acute findings. HARDWARE: None in the spine. VISUALIZED RIBS: No fractures. LUNG APICES AND SOFT TISSUES: No significant or acute findings. OTHER: No other significant finding. IMPRESSION: NO ACUTE OR SIGNIFICANT FINDINGS IN THE CERVICAL SPINE. TECHNICAL DOCUMENTATION: JOB ID: [id number] Quality ID # [id number]: Final reports with documentation of one or more dose reduction techniques (e.g., Au tomated exposure control, adjustment of the mA and/or kV according to patient size, use of iterative reconstruction technique) 2010 [employer]- All Rights Reserved Reading location - IP/workstation name: [email or web address]
--- NOTE | 2020-05-31 10:42 | RADIOLOGY REPORT (SQ) ---
EXAM DESCRIPTION: CT CHEST WITHOUT IMAGES COMPLETED DATE/TIME: 05/31/2020 10:21 am REASON FOR STUDY: trauma/fall/chest pain COMPARISON: 05/17/2020 TECHNIQUE: CT scan performed of the chest without intravenous contrast. Images reviewed with lung, soft tissue and bone windows. Reconstructed coronal and sagittal MPR images reviewed. All images st ored on PACS. All CT scanners at this facility use dose modulation, iterative reconstruction, and/or weight based d osing when appropriate to reduce radiation dose to as low as reasonably achievable (ALARA). [facility]: Dose Right [facility]: CareDose [facility]: Dose Right [facility]: Teradose 4D [facility]: [employer] RADIATION DOSE: CT Rad equipment meets quality standard of care and radiation dose reduction techniq ues were employed. CTDIvol: 14.4 mGy. DLP: 534 mGy-cm. mGy. LIMITATIONS: No technical limitations. FINDINGS: LUNGS AND PLEURA: Chronic interstitial changes. No pneumothorax. No evidence of pulmonar y contusion. HILAR AND MEDIASTINAL STRUCTURES: No identified masses or abnormal nodes. No obvious aneurysm. HEART AND VASCULAR STRUCTURES: Cardiomegaly. CABG. No pericardial effusion. UPPER ABDOMEN: See separate report of the CT of the abdomen. THYROID AND OTHER SOFT TISSUES: No masses. No adenopathy. BONES: No acute findings. HARDWARE: See above. OTHER: No other significant findings. IMPRESSION: No acute findings. TECHNICAL DOCUMENTATION: JOB ID: [id number] Quality ID # [id number]: Final reports with documentation of one or more dose reduction techniques (e.g., Au tomated exposure control, adjustment of the mA and/or kV according to patient size, use of iterative reconstruction technique) 2010 [employer]- All Rights Reserved Reading location - IP/workstation name: [email or web address]
--- NOTE | 2020-05-31 10:53 | RADIOLOGY REPORT (SQ) ---
EXAM DESCRIPTION: CT ABD/PELVIS NO ORAL OR IV IMAGES COMPLETED DATE/TIME: 05/31/2020 10:21 am REASON FOR STUDY: trauma/abd distension/pain COMPARISON: None. TECHNIQUE: CT scan of the abdomen and pelvis performed without intravenous or oral contrast. Images reviewed with lung, soft tissue, and bone windows. Reconstructed coronal and sagittal MPR images revi ewed. All images stored on PACS. All CT scanners at this facility use dose modulation, iterative reconstruction, and/or weight based d osing when appropriate to reduce radiation dose to as low as reasonably achievable (ALARA). [facility]: Dose Right [facility]: CareDose [facility]: Dose Right [facility]: Teradose 4D [facility]: [employer] RADIATION DOSE: CT Rad equipment meets quality standard of care and radiation dose reduction techniq ues were employed. CTDIvol: 14.4 mGy. DLP: 777 mGy-cm.mGy. LIMITATIONS: Motion. FINDINGS: LOWER CHEST: See separate report of the CT of the chest. NON-CONTRASTED LIVER, SPLEEN, ADRENALS: Evaluation limited by lack of IV contrast. No identified sign ificant masses. PANCREAS: No masses. No peripancreatic inflammatory changes. GALLBLADDER: Surgically absent. RIGHT KIDNEY AND URETER: No suspicious masses. Assessment limited by lack of IV contrast. No signif icant calcifications. No hydronephrosis or hydroureter. LEFT KIDNEY AND URETER: No suspicious masses. Assessment limited by lack of IV contrast. No signifi cant calcifications. No hydronephrosis or hydroureter. AORTA AND RETROPERITONEUM: No aneurysm. No retroperitoneal masses or adenopathy. BOWEL AND PERITONEAL CAVITY: No obvious masses or inflammatory changes. No free fluid. APPENDIX: Not visualized. PELVIS, BLADDER, AND ABDOMINAL WALL:No abnormal masses. No free fluid. Bladder normal. BONES: No acute findings. OTHER: No other significant finding. IMPRESSION: No acute findings. COMMENT: Quality ID # [id number]: Final reports with documentation of one or more dose reduction techniques (e.g., Automated exposure control, adjustment of the mA and/or kV according to patient size, use of iterative reconstruction technique) TECHNICAL DOCUMENTATION: JOB ID: [id number] 2010 [employer]- All Rights Reserved Reading location - IP/workstation name: [email or web address]
[2020-05-31] MEDS ORDERED: BUMETANIDE INJ/PF 1 MG/4 ML SDV IV ONE (12:40)
[2020-05-31] MEDS ORDERED: OXYCODONE-ACETAMINOPHEN 5-325 MG TABLET PO ONE (15:03)
--- NOTE | 2020-05-31 16:05 | ER Document Report ---
Entered by SEAN SAPP SCRIBE 05/31/20 0830 Acting as scribe for:BREANNA COWART MD ED Fall - General Stated Complaint: FALL/HEAD AND NECK PAIN Primary Care Provider: MITESH CAICEDO MD [Primary Care Provider] - Follow up as needed Mode of Arrival: Medic Information source: Patient, Emergency Med Personnel Notes: This 49 year old female patient with a history HTN, HLD, A fib, CHF, CAD s/p CABG, PAD, and type 2 diabetes mellitus presents to the ED via EMS from home for evaluation following a fall that occurred just prior to arrival. Per EMS, the patient's left the house for approximately x30 minutes to take their child to school and when he returned, he heard the patient yelling for help and found her on the floor wedged between the bed and the shelf. Patient reportedly fell head-first off the side of the bed into a shelf attempting to use the bedside commode. No LOC reported. Patient complains of head and neck pain and was subsequently placed in a C-collar via EMS. They state that the patient appears drowsier than usual, but is arousable to verbal stimuli, able to answer questions appropriately, and is AAOx4. Vital signs were stable; however, the patient had a BGL of 466 and received 1 L bolus of LR. Patient is also complaining of reproducible anterior chest wall pain. Denies shortness of breath. TRAVEL OUTSIDE OF THE [place] IN LAST 30 DAYS: No - Related data Allergies/Adverse Reactions: amlodipine Allergy (Severe, Verified 05/31/20 10:42) Hallucinations isosorbide [From Imdur] Allergy (Intermediate, Verified 05/31/20 10:42) RASH zolpidem [From Ambien] Adverse Reaction (Severe, Verified 05/31/20 10:42) Hallucinations Past Medical History - General Information source: [facility] Records - Social History Smoking Status: Unknown if Ever Smoked Smoking Education Provided: No Lives with: Family Family History: Reviewed & Not Pertinent, CAD, CVA, DM, Hypertension, Malignancy, Other - Kidney disease Patient has suicidal ideation: No Patient has homicidal ideation: No - Past Medical History Cardiac Medical History: Reports: Hx Atrial Fibrillation, Hx Congestive Heart Failure, Hx Coronary Artery Disease, Hx DVT, Hx Heart Attack - x3 per patient, Hx Hypercholesterolemia, Hx Hypertension, Hx Peripheral Vascular Disease Pulmonary Medical History: Reports: Hx Bronchitis, Hx COPD, Hx Pneumonia Endocrine Medical History: Reports: Hx Diabetes Mellitus Type 2 Renal/ Medical History: Reports: Hx Hemodialysis - Short-term for fluid overload only, Hx Kidney Stones, Hx Renal Insufficiency GI Medical History: Reports: Hx Gastroesophageal Reflux Disease, Hx Hiatal Hernia, Hx Irritable Bowel Musculoskeletal Medical History: Reports Hx Arthritis, Reports Hx Musculoskeletal Deformity, Reports Hx Musculoskeletal Trauma Skin Medical History: Reports Hx Cellulitis Psychiatric Medical History: Reports: Hx Anxiety, Hx Depression Past Surgical History: Reports: Hx Abdominal Surgery, Hx Cardiac Catheterization, Hx Section - x2, Hx Cholecystectomy, Hx Coronary Artery Bypass Graft - x3, Hx Herniorrhaphy - Ventral hernia, Hx Orthopedic Surgery - Knee surgery, Hx Tubal Ligation, Hx Vascular Surgery - Left iliofemo ral bypass, Other - Peripheral nerve stimulator implantation - Immunizations Immunizations up to date: Yes Hx Diphtheria, Pertussis, Tetanus Vaccination: Yes Hx Pneumococcal Vaccination: 07/23/09 Review of Systems - Review of Systems Constitutional: No symptoms reported EENT: No symptoms reported Cardiovascular: See HPI, Chest pain - reproducible chest wall Respiratory: See HPI. denies: Short of breath Gastrointestinal: No symptoms reported Genitourinary: No symptoms reported Female Genitourinary: No symptoms reported Musculoskeletal: See HPI, Neck pain, Other - Head pain Skin: No symptoms reported Hematologic/Lymphatic: No symptoms reported Neurological/Psychological: See HPI. denies: Lost consciousness -: Yes All other systems reviewed and negative Physical Exam - Vital signs Vitals: Resp BP Pulse Ox 13 142/77 H 94 05/31/20 08:38 05/31/20 08:38 05/31/20 08:38 - General General appearance: Alert In distress: None - HEENT Head: Normocephalic. No: Atraumatic Eyes: Normal Conjunctiva: Normal Extraocular movements intact: Yes Pupils: PERRL Mouth/Lips: Other - Ecchymosis noted to lower lip with some dried blood present Neck: Other - C-spine immobilized by C-collar - Respiratory Respiratory status: No respiratory distress Chest status: Other - Reproducible anterior sternal chest wall pain Breath sounds: Normal Chest palpation: Normal - Cardiovascular Rhythm: Regular Heart sounds: Normal auscultation Murmur: No Friction rub: No Gallop: None auscultated - Abdominal Distension: Distended Tenderness: Nontender - Abdomen soft Organomegaly: No organomegaly - Back Back: Normal, Nontender - Extremities General upper extremity: Normal inspection General lower extremity: Other - Right BKA, Left AKA - Neurological Neuro grossly intact: Yes - Psychological Associated symptoms: Normal affect, Normal mood - Skin Skin Temperature: Warm Skin Moisture: Dry Skin Color: Normal Course - Re-evaluation Re-evalutation: 05/31/20 14:29 Patient resting comfortably drinking water without any problems no trouble swallowing. Patient states she is not in distress at this time. Patient still has reproducible chest wall pain on the anterior chest sternal region. No crepitus noted. 05/31/20 14:34 Case was discussed with Dr. Murphy because of the chronic low level troponin in a patient who does have some chest pain this most likely chest wall pain due to the trauma of falling. Patient's initial troponin came back at 0.014 and repeat was 0.043. Patient has chronically elevated troponin levels because of her CHF and chronic kidney disease. Dr. Murphy stated that it would not be unreasonable to admit patient to hospital for observation however in further discussion of the admission with the hospitalist Dr. Murphy says he would be happy to see patient as an outpatient tomorrow in his office. And that patient does not really meet strong criteria to be admitted to the hospital because of her chronically elevated troponin levels and the fact that her chest pain is chest wall pain as opposed to angina. 05/31/20 16:53 Repeat lipase came back at 482. The heart initial lipase was over 500 so there is a trending of lipase diminishing in level. Patient's abdomen is nontender no rebound. Patient CT scan of abdomen and pelvis did not disclose any internal injury to abdominal organs including pancreas:. No free fluid was noted. Patient complains of only back pain at this time which is a chronic condition of hers. 05/31/20 16:55 Most likely elevated lipase was due to the trauma falling today without any CT or clinical evidence for any pancreatitis or other organ involvement in the abdomen. - Vital Signs Vital signs: Temp Pulse Resp BP Pulse Ox 98.5 F 16 143/80 H 96 05/31/20 08:56 05/31/20 16:01 05/31/20 16:01 05/31/20 16:01 Vital signs stable. Room air sats 95% and above. On room air. - Laboratory Result Diagrams: 05/31/20 08:47 05/31/20 08:47 Laboratory results interpreted by me: 05/31/20 05/31/20 05/31/20 08:37 08:42 08:47 Hgb 11.0 L Hct 32.8 L RDW 17.5 H Lymph % (Auto) 9.8 L Seg Neutrophils % 82.0 H PT 18.9 H APTT 39.8 H BUN Creatinine Est GFR ( Amer) Est GFR (MDRD) Non-Af Glucose POC Glucose 318 H Creatine Kinase NT-Pro-B Natriuret Pep Lipase Urine Protein Urine Glucose (UA) Urine Blood Urine Ascorbic Acid 05/31/20 05/31/20 05/31/20 08:47 08:47 09:37 Hgb Hct RDW Lymph % (Auto) Seg Neutrophils % PT APTT BUN 48 H Creatinine 2.07 H Est GFR ( Amer) 31 L Est GFR (MDRD) Non-Af 25 L Glucose 315 H POC Glucose Creatine Kinase 154 H NT-Pro-B Natriuret Pep 9870 H Lipase 553.2 H Urine Protein >=500 H Urine Glucose (UA) 50 H Urine Blood SMALL H Urine Ascorbic Acid 40 H 05/31/20 05/31/20 14:54 14:55 Hgb Hct RDW Lymph % (Auto) Seg Neutrophils % PT APTT BUN Creatinine Est GFR ( Amer) Est GFR (MDRD) Non-Af Glucose POC Glucose 170 H Creatine Kinase NT-Pro-B Natriuret Pep Lipase 482.4 H Urine Protein Urine Glucose (UA) Urine Blood Urine Ascorbic Acid Patient has diabetes and chronic kidney disease chronic CHF. - Diagnostic Test Radiology reviewed: Image reviewed, Reports reviewed Radiology results interpreted by me: 05/31/20 14:[address] 05/31/20 08:55 IMPRESSION: NORMAL BRAIN CT WITHOUT CONTRAST. EVIDENCE OF ACUTE STROKE: NO. Cervical Spine CT 05/31/20 08:56 IMPRESSION: NO ACUTE OR SIGNIFICANT FINDINGS IN THE CERVICAL SPINE. Chest CT 05/31/20 08:57 IMPRESSION: No acute findings. Abdomen/Pelvis CT 05/31/20 08:58 IMPRESSION: No acute findings. 05/31/20 14:[address] shows no evidence of an acute stroke. Cervical thoracic spine CT shows no acute cervical findings of any fractures or malalignment. Chest CT no acute findings no fractures no pneumothorax. Abdomen pelvis CT no acute findings no obstruction. No free air. - EKG Interpretation by Me Additional EKG results interpreted by me: 05/31/20 09:11 Twelve-lead EKG normal sinus rhythm rate of 89 probable left atrial abnormality normal MN interval normal QRS interval borderline prolonged QT interval nonspecific intraventricular conduction delay. Borderline ST depression in the lateral leads no acute STEMI normal axis 05/31/20 14:32 Repeat twelve-lead EKG today at 1400 shows normal sinus rhythm rate of 86 nonspecific intraventricular conduction delay and borderline ST depression in the lateral leads. No change from prior EKG today left axis deviation noted MN interval within normal range QRS within normal range and QT interval borderline prolonged. No acute ST elevation to suggest a STEMI. - Consults Dr. Jeremias Murphy, [employer] [facility] Time consulted: 13:55 Dr. Brock, Hospitalist Time consulted: 14:00 Discharge - Discharge Clinical Impression: Accidental fall from bed, Contusion, lip, Chest wall pain, Chronic back pain, COPD (chronic obstructive pulmonary disease), Congestive heart failure, CAD (coronary artery disease), [place] coronary artery, Chronic pain, Stage 3 chronic kidney disease, Diabetes Condition: Good Disposition: HOME, SELF-CARE Additional Instructions: Continue your same medications that you are currently taking. There is no new prescriptions added today. Please be careful and avoid trying to get out of bed alone as you did today. I would recommend that you continue taking your pain management medications. Today we did not find any internal injuries or any areas of fractures. Referrals: MITESH CAICEDO MD [Primary Care Provider] - Follow up as needed I personally performed the services described in the documentation, reviewed and edited the documentation which was dictated to the scribe in my presence, and it accurately records my words and actions.
[2020-05-31 17:49] VITALS: BP 146/75
--- NOTE | 2020-05-31 22:49 | EKG REPORT ---
SEVERITY:- ABNORMAL ECG - SINUS RHYTHM NONSPECIFIC INTRAVENTRICULAR CONDUCTION DELAY BORDERLINE ST DEPRESSION, LATERAL LEADS : Confirmed by: Sal Solis 31-May-2020 22:48:47
--- NOTE | 2020-05-31 22:52 | EKG REPORT ---
SEVERITY:- ABNORMAL ECG - SINUS RHYTHM PROBABLE LEFT ATRIAL ABNORMALITY NONSPECIFIC INTRAVENTRICULAR CONDUCTION DELAY BORDERLINE ST DEPRESSION, LATERAL LEADS : Confirmed by: Sal Solis 31-May-2020 22:52:05
== END 2020-05-31 17:45 | disposition home or self-care (01) ==
LOC: ER 08:21
DX: S00.531A Contusion of lip, initial encounter (principal); R51.9 Headache, unspecified; M54.2 Cervicalgia; W06.XXXA Fall from bed, initial encounter; Y93.89 Activity, other specified; Y92.003 Bedroom of unspecified non-institutional (private) residence as the place of occurrence of the external cause; R10.9 Unspecified abdominal pain; R07.89 Other chest pain; M54.9 Dorsalgia, unspecified; G89.29 Other chronic pain; I25.10 Atherosclerotic heart disease of native coronary artery without angina pectoris; I13.0 Hypertensive heart and chronic kidney disease with heart failure and stage 1 through stage 4 chronic kidney disease, or unspecified chronic kidney disease; I50.9 Heart failure, unspecified; E11.22 Type 2 diabetes mellitus with diabetic chronic kidney disease; N18.30 Chronic kidney disease, stage 3 unspecified; E11.51 Type 2 diabetes mellitus with diabetic peripheral angiopathy without gangrene; J44.9 Chronic obstructive pulmonary disease, unspecified; R14.0 Abdominal distension (gaseous); I25.2 Old myocardial infarction; Z95.1 Presence of aortocoronary bypass graft; Z89.512 Acquired absence of left leg below knee; Z89.511 Acquired absence of right leg below knee; Z88.8 Allergy status to other drugs, medicaments and biological substances
CPT/HCPCS: 93005; 99285; 96361; 96374; 36415; 87040; 82962; 82550; 83605; 83690; 83735; 85025; 85610; 85730; 82270; 80053; 81001; 84484; 80307; 82803; 83880; 70450; 71250; 72125; 74176; 93010; J3490; A9270; J7030

== ENCOUNTER 2020-06-04 15:07 | Emergency (ER) | payer MEDICARE, MEDICAID ==
[2020-06-04 15:23] VITALS: BP 104/57
--- NOTE | 2020-06-04 16:04 | ER Document Report ---
HPI - HPI Patient complains to provider of: Medical concern Time Seen by Provider: 06/04/20 15:48 Onset: Other - Intermittent Onset/Duration: Gone Quality of pain: No pain Severity: None Pain Level: Denies Context: 49-year-old female presented to ED for concerns of shaking that she has had since September. She states she has not had any new or change in her health today. She states she did fall Sunday and she came into the emergency room and had scans and x-rays done at that time. She states she has not had any new falls. She states she is taking her medications the way she is prescribed. She does have a double amputee due to her diabetes. She also has kidney disease. She is taking her Lasix as she is supposed to. She denies any pain or discomfort at this time. Constitutional: Negative for fever. HENT: Negative for sore throat. Eyes: Negative for visual changes. Cardiovascular: Negative for chest pain. Respiratory: Negative for shortness of breath. Gastrointestinal: Negative for abdominal pain, vomiting or diarrhea. Genitourinary: Negative for dysuria. Musculoskeletal: She does have a bilateral lower extremity amputation from diabetes. She does have some Band-Aids on both stumps due to her recent fall Skin: Multiple ecchymotic areas to her bilateral arms her hip or clavicle area. She does have Band-Aids on both stumps Neurological: Negative for headaches, weakness or numbness. 10 point ROS negative except as marked above and in HPI. PHYSICAL EXAMINATION: GENERAL: Well-appearing, well-nourished and in no acute distress. HEAD: Atraumatic, normocephalic. EYES: Pupils equal round extraocular movements intact, conjunctiva are normal. ENT: Nares patent NECK: Normal range of motion LUNGS: No respiratory distress Musculoskeletal: Normal range of motion NEUROLOGICAL: Normal speech, patient has bilateral amputations as does not walk PSYCH: Normal mood, normal affect. SKIN: Ecchymotic areas on both arms the left clavicle area and she has Band-Aids on both stumps. Associated Symptoms: None Exacerbated by: Denies Similar symptoms previously: Yes Recently seen / treated by doctor: Yes - CONSTITUTIONAL Constitutional: DENIES: Fever, Chills - EENT EENT: DENIES: Sore Throat, Ear Pain, Nasal Drainage-Clear, Nasal Drainage- Purulent, Congestion, Eye problems - NEURO Neurology: DENIES: Headache, Weakness, Vision blurred, Dizzinesss / Vertigo - CARDIOVASCULAR Cardiovascular: DENIES: Chest pain - RESPIRATORY Respiratory: DENIES: Trouble Breathing, Coughing - GASTROINTESTINAL Gastrointestinal: DENIES: Abdominal Pain, Nausea, Patient vomiting, Diarrhea, Constipation, Black / Bloody Stools - URINARY Urinary: DENIES: Dysuria, Urgency, Frequency - REPRODUCTIVE Reproductive: DENIES: :, Postmenopausal, Abnormal bleeding / discharge - MUSCULOSKELETAL Musculoskeletal: DENIES: Extremity pain, Back Pain, Neck Pain, Swelling Notes: Bilateral amputations - DERM Skin Color: Ecchymosis - Multiple ecchymotic areas multiple scratches Skin Problems: None Past Medical History - General Information source: Patient - Social History Smoking Status: Former Smoker Chew tobacco use (# tins/day): No Frequency of alcohol use: None Drug Abuse: None Family History: Reviewed & Not Pertinent, CAD, CVA, DM, Hypertension, Malignancy, Other - Kidney disease - Past Medical History Cardiac Medical History: Reports: Hx Atrial Fibrillation, Hx Congestive Heart Failure, Hx Coronary Artery Disease, Hx DVT, Hx Heart Attack - x3 per patient, Hx Hypercholesterolemia, Hx Hypertension, Hx Peripheral Vascular Disease Pulmonary Medical History: Reports: Hx Bronchitis, Hx COPD, Hx Pneumonia Neurological Medical History: Denies: Hx Migraine, Hx Seizures Endocrine Medical History: Reports: Hx Diabetes Mellitus Type 2. Denies: Hx Diabetes Mellitus Type 1, Hx Hyperthyroidism, Hx Hypothyroidism Renal/ Medical History: Reports: Hx Hemodialysis - Short-term for fluid overload only, Hx Kidney Stones, Hx Renal Insufficiency. Denies: Hx Peritoneal Dialysis GI Medical History: Reports: Hx Gastroesophageal Reflux Disease, Hx Hiatal Hernia, Hx Irritable Bowel. Denies: Hx Cirrhosis, Hx Crohn's Disease, Hx Hepatitis, Hx Ulcerative Colitis Musculoskeletal Medical History: Reports Hx Arthritis, Denies Hx Fibromyalgia, Denies Hx Gout, Reports Hx Musculoskeletal Deformity, Reports Hx Musculoskeletal Trauma Skin Medical History: Reports Hx Cellulitis, Denies Hx Eczema, Denies Hx Psoriasis Psychiatric Medical History: Reports: Hx Anxiety, Hx Depression Infectious Medical History: Denies: Hx Hepatitis Past Surgical History: Reports: Hx Abdominal Surgery, Hx Cardiac Catheterization, Hx Cardiac Surgery - CABG, Hx Section - x2, Hx Cholecystectomy, Hx Coronary Artery Bypass Graft - x3, Hx Herniorrhaphy - Ventral hernia, Hx Orthopedic Surgery - Knee surgery, Hx Tubal Ligation, Hx Vascular Surgery - Left iliofemoral bypass, Other - Peripheral nerve stimulator implantation - Immunizations Immunizations up to date: Yes Hx Diphtheria, Pertussis, Tetanus Vaccination: Yes Hx Pneumococcal Vaccination: 07/23/09 Vertical Provider Document - INFECTION CONTROL TRAVEL OUTSIDE OF THE [place] IN LAST 30 DAYS: No Course - Vital Signs Vital signs: Temp Pulse Resp BP Pulse Ox 98.0 F 75 18 104/57 L 94 06/04/20 15:20 06/04/20 15:20 06/04/20 15:20 06/04/20 15:20 06/04/20 15:20 Discharge - Discharge Clinical Impression: concerned about her Condition: Stable Disposition: HOME, SELF-CARE Additional Instructions: You and your was concerned about you before you go to your daughter's house. The assessment is negative at this time. You do have your normal chronic conditions but there is no new injuries there is no new bruises your blood sugar was 168 which is not low and would not cause any shaking. You have a history of anxiety and depression and you do have medications for your anxiety and depression. These monitor your sugar and have someone check it if you are shaking again. Sugar 168 should not cause any shakes. You are not shaking at all right now you are alert and oriented able to answer all my questions well. You have any concerns while you are at your daughter's house you feel free to come back immediately. FOLLOW-UP CARE: If you have been referred to a physician for follow-up care, call the physicians office for an appointment as you were instructed or within the next two days. If you experience worsening or a significant change in your symptoms, notify the physician immediately or return to the Emergency Department at any time for re-evaluation. Referrals: MITESH CAICEDO MD [Primary Care Provider] - Follow up in 3-5 days
== END 2020-06-04 16:06 | disposition home or self-care (01) ==
LOC: ER 15:07
DX: Z71.1 Person with feared health complaint in whom no diagnosis is made (principal); I48.91 Unspecified atrial fibrillation; I50.9 Heart failure, unspecified; I11.0 Hypertensive heart disease with heart failure; I25.2 Old myocardial infarction; E11.9 Type 2 diabetes mellitus without complications; Z95.1 Presence of aortocoronary bypass graft
CPT/HCPCS: 82962; 99282

== ENCOUNTER 2020-06-20 01:54 | Emergency (ER) | payer MEDICARE, MEDICAID ==
--- NOTE | 2020-06-20 02:24 | ER Document Report ---
ED Respiratory Problem - General Chief Complaint: Shortness Of Breath Stated Complaint: SHORTNESS OF BREATH Time Seen by Provider: 06/20/20 02:13 Primary Care Provider: Chon MENDEZ MD [ACTIVE STAFF] - Follow up in 1 week Notes: Patient is a 49-year-old female that comes emergency department for chief complaint of shortness of breath. She states she has had worsening shortness of breath and fatigue since yesterday. She denies chest pain, cough, fever, nausea, vomiting, headache, or any other complaints. Past medical history is complicated and includes CHF, atrial fibrillation status post ablation, DVT, hypertension, hyperlipidemia, type 2 diabetes, CAD status post CABG, PAD status post left AKA and right BKA. She does have a history of COPD as well but denies current smoking. She denies any obvious sick contacts. She gets around in a wheelchair, lives at home with her daughter. TRAVEL OUTSIDE OF THE [place] IN LAST 30 DAYS: No - Related Data Allergies/Adverse Reactions: amlodipine Allergy (Severe, Verified 05/31/20 10:42) Hallucinations isosorbide [From Imdur] Allergy (Intermediate, Verified 05/31/20 10:42) RASH zolpidem [From Ambien] Adverse Reaction (Severe, Verified 05/31/20 10:42) Hallucinations Past Medical History - General Information source: Patient - Social History Smoking Status: Former Smoker Chew tobacco use (# tins/day): No Frequency of alcohol use: None Drug Abuse: None Lives with: Family Family History: Reviewed & Not Pertinent, CAD, CVA, DM, Hypertension, Malignancy, Other - Kidney disease - Past Medical History Cardiac Medical History: Reports: Hx Atrial Fibrillation, Hx Congestive Heart Failure, Hx Coronary Artery Disease, Hx DVT, Hx Heart Attack - x3 per patient, Hx Hypercholesterolemia, Hx Hypertension, Hx Peripheral Vascular Disease Pulmonary Medical History: Reports: Hx Bronchitis, Hx COPD, Hx Pneumonia Neurological Medical History: Denies: Hx Migraine, Hx Seizures Endocrine Medical History: Reports: Hx Diabetes Mellitus Type 2. Denies: Hx Diabetes Mellitus Type 1, Hx Hyperthyroidism, Hx Hypothyroidism Renal/ Medical History: Reports: Hx Hemodialysis - Short-term for fluid overload only, Hx Kidney Stones, Hx Renal Insufficiency. Denies: Hx Peritoneal Dialysis GI Medical History: Reports: Hx Gastroesophageal Reflux Disease, Hx Hiatal Hernia, Hx Irritable Bowel. Denies: Hx Cirrhosis, Hx Crohn's Disease, Hx Hepatitis, Hx Ulcerative Colitis Musculoskeletal Medical History: Reports Hx Arthritis, Denies Hx Fibromyalgia, Denies Hx Gout, Reports Hx Musculoskeletal Deformity, Reports Hx Musculoskeletal Trauma Skin Medical History: Reports Hx Cellulitis, Denies Hx Eczema, Denies Hx Psoriasis Psychiatric Medical History: Reports: Hx Anxiety, Hx Depression Infectious Medical History: Denies: Hx Hepatitis Past Surgical History: Reports: Hx Abdominal Surgery, Hx Cardiac Catheterization, Hx Cardiac Surgery - CABG, Hx Section - x2, Hx Cholecystectomy, Hx Coronary Artery Bypass Graft - x3, Hx Herniorrhaphy - Ventral hernia, Hx Orthopedic Surgery - Knee surgery, Hx Tubal Ligation, Hx Vascular Surgery - Left iliofemoral bypass, Other - Peripheral nerve stimulator implantation - Immunizations Immunizations up to date: Yes Hx Diphtheria, Pertussis, Tetanus Vaccination: Yes Hx Pneumococcal Vaccination: 07/23/09 Review of Systems - Review of Systems Constitutional: No symptoms reported EENT: No symptoms reported Cardiovascular: See HPI Respiratory: See HPI Gastrointestinal: No symptoms reported Genitourinary: No symptoms reported Female Genitourinary: No symptoms reported Musculoskeletal: No symptoms reported Skin: No symptoms reported Hematologic/Lymphatic: No symptoms reported Neurological/Psychological: No symptoms reported Physical Exam - Vital signs Vitals: Temp 98.5 F 06/20/20 01:59 - Notes Notes: GENERAL: Alert, interacts well. No acute distress. HEAD: Normocephalic, atraumatic. EYES: Pupils equal, round, and reactive to light. Extraocular movements intact. ENT: Oral mucosa moist, tongue midline. Oropharynx unremarkable. Airway patent. NECK: Full range of motion. Supple. Trachea midline. No lymphadenopathy. LUNGS: Clear to auscultation bilaterally, no wheezes, rales, or rhonchi. No respiratory distress. Non-tender chest wall. monitor tech in place over the chest. HEART: Regular rate and rhythm. No murmur ABDOMEN: Soft, non-tender. Non-distended. Bowel sounds present in all 4 quadrants. GENITOURINARY: Deferred EXTREMITIES: Upper extremities unremarkable with good distal neurovascular exam and no cyanosis. Bilateral lower extremity amputations around the knees. BACK: no cervical, thoracic, lumbar midline tenderness. No saddle anesthesia, normal distal neurovascular exam. Moves all extremities in full range of motion. NEUROLOGICAL: Alert and oriented x3. Normal speech. Cranial nerves II through XII grossly intact. Strength 5/5 in all extremities. PSYCH: Normal affect, normal mood. SKIN: Warm, dry, normal turgor. No rashes or lesions noted. Course - Re-evaluation Re-evalutation: Patient is actually quite well-appearing on my exam. She has no tachypnea, clear lungs, soft abdomen, unremarkable physical exam. She has no hypoxia, tachycardia, hypotension, or fever. She is also not hypertensive. Chest x-ray shows cardiomegaly but no overt failure. EKG without change from prior. CBC shows anemia with hemoglobin of 8.7, normocytic. No leukocytosis. Troponin is not elevated, symptoms have been going on for couple of days reportedly. Chemistry unremarkable other than chronic kidney disease which is approximately patient's baseline. I did note that her previous hemoglobin was 11 about 20 days ago therefore rectal exam was performed but this shows normal stool and negative Hemoccult. Patient is on a blood thinner. It is possible she did have some bleeding although the anemia is normocytic. Regardless at this time patient is not bleeding, she has no current symptoms other than reported shortness of breath, I suspect this is from worsening anemia. No acute process noted. Discussed with Dr. Tavera, then with patient in detail. Patient will be discharged, follow-up with her primary, be referred to nephrology for potential additional management for chronic kidney disease and anemia. Patient states understanding and agreement. After this patient states she wanted to ask about twitching she was having in her extremities for the past 3 months, after she asked me she began to demonstrate the twitching. This is very nonspecific given she has voluntary control of this, I discussed her labs again in regards to this, patient stopped twitching afterwards. Stable and well-appearing at time of discharge. - Vital Signs Vital signs: Temp Pulse Resp BP Pulse Ox 98.4 F 88 13 111/67 90 L 06/20/20 04:57 06/20/20 02:16 06/20/20 05:01 06/20/20 05:00 06/20/20 05:01 - Laboratory Result Diagrams: 06/20/20 02:35 06/20/20 02:35 Laboratory results interpreted by me: 06/20/20 06/20/20 06/20/20 02:35 02:35 02:35 RBC 3.00 L Hgb 8.7 L Hct 26.3 L RDW 20.7 H Seg Neutrophils % 78.2 H BUN 76 H Creatinine 2.33 H Est GFR ( Amer) 27 L Est GFR (MDRD) Non-Af 22 L Glucose 158 H NT-Pro-B Natriuret Pep 6350 H - EKG Interpretation by Me Additional EKG results interpreted by me: EKG shows sinus rhythm at a rate of 86, QTC borderline at 498, borderline left axis deviation. There is borderline ST depression in leads V5 and V6. No T wave inversions or significant ST segment changes in consecutive leads noted. No significant change from prior. Discharge - Discharge Clinical Impression: Shortness of breath, Symptomatic anemia Condition: Stable Disposition: HOME, SELF-CARE Additional Instructions: Your hemoglobin (red blood cells) did drop compared to your most recent testing. This is most likely cause of your shortness of breath. However you are not currently bleeding and no other concerning findings are noted. Please follow-up with either your primary care or the nephrology referral for discussion of your anemia and different options to treat this. Continue the iron. Return if you worsen including bloody bowel movements, passing out, difficulty breathing, or any other concerning or worsening symptoms. Referrals: Chon MENDEZ MD [ACTIVE STAFF] - Follow up in 1 week
[2020-06-20 02:51] LABS: ABSOLUTE BASOPHILS # (AUTO) 0.1 10^3/uL (0.0-0.2); ABSOLUTE EOSINOPHILS # (AUTO) 0.2 10^3/uL (0.0-0.6); ABSOLUTE LYMPHOCYTES (AUTO) 1.3 10^3/uL (0.5-4.7); ABSOLUTE MONOCYTES (AUTO) 0.4 10^3/uL (0.1-1.4); ABSOLUTE NEUT (AUTO) 7.4 10^3/uL (1.7-8.2); BASOPHILS % (AUTO) 0.9 % (0-2); HEMATOCRIT 26.3 % (36.0-47.0); HEMOGLOBIN 8.7 g/dL (12.0-15.5); LYMPHOCYTES % (AUTO) 14.2 % (13-45); MEAN CORPUSCULAR HEMOGLOBIN 28.9 pg (27.0-33.4); MEAN CORPUSCULAR VOLUME 88 fl (80-97); MONOCYTES % (AUTO) 4.7 % (3-13); PLATELET COUNT 198 10^3/uL (150-450); RED CELL DISTRIBUTION WIDTH 20.7 % (11.5-14.0); SEGMENTED NEUTROPHILS % (AUTO) 78.2 % (42-78); TOTAL CELLS COUNTED % (AUTO) 100 %; WHITE BLOOD COUNT 9.4 10^3/uL (4.0-10.5)
[2020-06-20 02:56] LABS: VENOUS BLOOD BASE EXCESS -3.3 mmol/L; VENOUS BLOOD HCO3 23.1 mmol/L (20-32); VENOUS BLOOD PCO2 47.7 mmHg (35-63); VENOUS BLOOD PH 7.3 (7.30-7.42)
[2020-06-20 03:07] LABS: ALBUMIN 4.2 g/dL (3.5-5.0); ALKALINE PHOSPHATASE 62 U/L (38-126); ANION GAP 10 (5-19); ASPARTATE AMINO TRANSFERASE 17 U/L (14-36); BILIRUBIN,DIRECT 0.3 mg/dL (0.0-0.4); BILIRUBIN,TOTAL 0.5 mg/dL (0.2-1.3); BLOOD UREA NITROGEN 76 mg/dL (7-20); CALCIUM 9.1 mg/dL (8.4-10.2); CARBON DIOXIDE 26 mmol/L (22-30); CHLORIDE 103 mmol/L (98-107); GLUCOSE 158 mg/dL (75-110); POTASSIUM 4.7 mmol/L (3.6-5.0); TOTAL PROTEIN 7.7 g/dL (6.3-8.2)
[2020-06-20 03:19] LABS: NT PRO BNP 6350 pg/mL (<125)
--- NOTE | 2020-06-20 03:44 | RADIOLOGY REPORT (SQ) ---
AP Portable chest: 06/20/2020 2:42 AM SENIOR RECEPTIONIST History: 49-year old patient with dyspnea. Comparison: Chest radiograph performed 05/17/2020. Findings: The cardiomediastinal silhouette is enlarged. No pneumothorax is seen. No discrete pleural effusion is apparent. No acute airspace opacities are seen. Midline sternotomy changes are seen. There is mild elevation of the right hemidiaphragm. There is a device seen over the midline mediastinum which may be external to the patient. Impression: No acute airspace opacities are seen. The cardiomediastinal silhouette is enlarged.
[2020-06-20 03:48] LABS: TROPONIN I < 0.012 ng/mL
[2020-06-20 05:18] VITALS: BP 111/67
--- NOTE | 2020-06-20 08:40 | EKG REPORT ---
SEVERITY:- ABNORMAL ECG - SINUS RHYTHM NONSPECIFIC INTRAVENTRICULAR CONDUCTION DELAY NONSPECIFIC ST DEPRESSION, LATERAL LEADS UNCHANGED FROM 05/31/20 : Confirmed by: Rojas Jo MD 20-Jun-2020 08:39:33
== END 2020-06-20 05:18 | disposition home or self-care (01) ==
LOC: ER 01:54
DX: I13.0 Hypertensive heart and chronic kidney disease with heart failure and stage 1 through stage 4 chronic kidney disease, or unspecified chronic kidney disease (principal); E11.22 Type 2 diabetes mellitus with diabetic chronic kidney disease; N18.9 Chronic kidney disease, unspecified; I50.9 Heart failure, unspecified; D63.1 Anemia in chronic kidney disease; J44.9 Chronic obstructive pulmonary disease, unspecified; R06.02 Shortness of breath; R53.83 Other fatigue; E11.51 Type 2 diabetes mellitus with diabetic peripheral angiopathy without gangrene; I25.2 Old myocardial infarction; I25.10 Atherosclerotic heart disease of native coronary artery without angina pectoris; Z79.899 Other long term (current) drug therapy; Z95.5 Presence of coronary angioplasty implant and graft; Z86.718 Personal history of other venous thrombosis and embolism; Z87.01 Personal history of pneumonia (recurrent); Z88.8 Allergy status to other drugs, medicaments and biological substances
CPT/HCPCS: 36415; 71045; 80053; 82270; 82803; 83880; 84484; 85025; 93005; 93010; 99285

== ENCOUNTER 2020-06-27 01:06 | Inpatient (IN) | payer MEDICARE, MEDICAID ==
[2020-06-27 02:34] LABS: HEMATOCRIT 24.8 % (36.0-47.0); MEAN CORPUSCULAR HEMOGLOBIN 28.3 pg (27.0-33.4); MEAN CORPUSCULAR HGB CONC 32.3 g/dL (32.0-36.0); MEAN CORPUSCULAR VOLUME 87 fl (80-97); PLATELET COUNT 205 10^3/uL (150-450); RED BLOOD COUNT 2.83 10^6/uL (3.72-5.28); WHITE BLOOD COUNT 12.2 10^3/uL (4.0-10.5)
[2020-06-27 02:36] LABS: ALBUMIN 3.8 g/dL (3.5-5.0); ALKALINE PHOSPHATASE 54 U/L (38-126); ANION GAP 12 (5-19); ASPARTATE AMINO TRANSFERASE 24 U/L (14-36); BILIRUBIN,DIRECT 0.4 mg/dL (0.0-0.4); BILIRUBIN,TOTAL 0.7 mg/dL (0.2-1.3); BLOOD UREA NITROGEN 70 mg/dL (7-20); CALCIUM 9.1 mg/dL (8.4-10.2); CARBON DIOXIDE 28 mmol/L (22-30); CHLORIDE 97 mmol/L (98-107); GLUCOSE 292 mg/dL (75-110); POTASSIUM 4.4 mmol/L (3.6-5.0); TOTAL PROTEIN 7.1 g/dL (6.3-8.2)
[2020-06-27 02:46] LABS: ABSOLUTE LYMPHOCYTES# (MANUAL) 0.6 10^3/uL (0.5-4.7); ABSOLUTE MONOCYTES # (MANUAL) 0.2 10^3/uL (0.1-1.4); ANISOCYTOSIS 2+; BAND NEUTROPHILS % (MANUAL) 7 % (3-5); BASOPHILS % (MANUAL) 0 % (0-2); EOSINOPHILS % (MANUAL) 0 % (0-6); LYMPHOCYTES % (MANUAL) 5 % (13-45); MONOCYTES % (MANUAL) 2 % (3-13); PLATELET COMMENT ADEQUATE; POLYCHROMASIA 2+; SEGMENTED NEUTROPHILS % (MAN) 86 % (42-78); TOTAL CELLS COUNTED 100
--- NOTE | 2020-06-27 03:33 | ER Document Report ---
ED General - General Chief Complaint: Shortness Of Breath Stated Complaint: VOMITING Time Seen by Provider: 06/27/20 03:30 TRAVEL OUTSIDE OF THE [place] IN LAST 30 DAYS: No - HPI Context: Time: 342 Chief Complaint: [Shortness of breath and vomiting] [This is a 49-year-old female with a history of multiple medical problems including CHF, diabetes, bilateral lower extremity amputations who presents to the emergency department complaining of worsening shortness of breath over the past couple weeks and vomiting started around midnight tonight. Patient is not on home O2. Patient states that she has not been able to sleep lately because she gets so short of breath that she is fearful of going to sleep. Patient denies chest pain, abdominal pain, loss of sense of taste or loss of sense of smell, history of COVID-19 infection, known exposure to COVID-19 positive persons or persons under investigation for COVID-19. ] History obtained from [patient] Symptoms began:[Dyspnea has worsened over the past 2 weeks. Vomiting started at around midnight] Onset: [Dyspnea has been gradually worsening. Nausea and vomiting was sudden onset] Timing: [As above] Quality: [Patient denies pain] Intensity: [0 out of 5] Location: [Lungs] Radiation: [Denies] [The pain does not migrate to a new location.] Aggravating factors: [Any type of exertion] Relieving factors: [Patient states the oxygen she is receiving here is helping her symptoms] Positive SOB Positive nausea Positive vomiting [Denies] sweats [Denies] fever [Denies] cough [Denies] calf or leg swelling or pain - Related Data Allergies/Adverse Reactions: amlodipine Allergy (Severe, Verified 05/31/20 10:42) Hallucinations isosorbide [From Imdur] Allergy (Intermediate, Verified 05/31/20 10:42) RASH zolpidem [From Ambien] Adverse Reaction (Severe, Verified 05/31/20 10:42) Hallucinations Home Medications: pt here sunday Past Medical History - General Information source: Patient - Social History Smoking Status: Former Smoker Family History: Reviewed & Not Pertinent, CAD, CVA, DM, Hypertension, Malignancy, Other - Kidney disease - Past Medical History Cardiac Medical History: Reports: Hx Atrial Fibrillation, Hx Congestive Heart Failure, Hx Coronary Artery Disease, Hx DVT, Hx Heart Attack - x3 per patient, Hx Hypercholesterolemia, Hx Hypertension, Hx Peripheral Vascular Disease Pulmonary Medical History: Reports: Hx Bronchitis, Hx COPD, Hx Pneumonia Neurological Medical History: Denies: Hx Migraine, Hx Seizures Endocrine Medical History: Reports: Hx Diabetes Mellitus Type 2. Denies: Hx Diabetes Mellitus Type 1, Hx Hyperthyroidism, Hx Hypothyroidism Renal/ Medical History: Reports: Hx Hemodialysis - Short-term for fluid overload only, Hx Kidney Stones, Hx Renal Insufficiency. Denies: Hx Peritoneal Dialysis GI Medical History: Reports: Hx Gastroesophageal Reflux Disease, Hx Hiatal Hernia, Hx Irritable Bowel. Denies: Hx Cirrhosis, Hx Crohn's Disease, Hx Hepatitis, Hx Ulcerative Colitis Musculoskeletal Medical History: Reports Hx Arthritis, Denies Hx Fibromyalgia, Denies Hx Gout, Reports Hx Musculoskeletal Deformity, Reports Hx Musculoskeletal Trauma Skin Medical History: Reports Hx Cellulitis, Denies Hx Eczema, Denies Hx Psoriasis Psychiatric Medical History: Reports: Hx Anxiety, Hx Depression Infectious Medical History: Denies: Hx Hepatitis Past Surgical History: Reports: Hx Abdominal Surgery, Hx Cardiac Catheter ization, Hx Cardiac Surgery - CABG, Hx Section - x2, Hx Cholecystectomy, Hx Coronary Artery Bypass Graft - x3, Hx Herniorrhaphy - Ventral hernia, Hx Orthopedic Surgery - Knee surgery, Hx Tubal Ligation, Hx Vascular Surgery - Left iliofemoral bypass, Other - Peripheral nerve stimulator implantation - Immunizations Immunizations up to date: Yes Hx Diphtheria, Pertussis, Tetanus Vaccination: Yes Hx Pneumococcal Vaccination: 07/23/09 Review of Systems - Review of Systems Notes: Review of systems as below unless otherwise stated in HPI. CONSTITUTIONAL [No] fever, [No] chills. EYES [No] eye pain. ENT [No] URI symptoms, [No] sore throat, [No] ear pain. CARDIOVASCULAR [No] chest pain, [No] palpitations, [No] edema. RESPIRATORY [No] Cough, positive SOB, [No] wheezing. GASTROINTESTINAL [No] abdominal pain, positive nausea, [No] Diarrhea, positive vomiting, [No] constipation, [No] melena, [No] rectal bleeding. GENITOURINARY [No] dysuria, [No] urinary frequency, [No] hematuria, [No] urinary urgency, [No] vaginal discharge, [No] vaginal bleeding. MUSCULOSKELETAL [No] Back pain. SKIN [No] Rash. NEUROLOGIC [No] Headache, [No] recent seizures, [No] paralysis,[No] parathesias. ENDOCRINE [No] polyuria. HEMO/LYMPATIC [No] easy brusing PSYCHIATRIC [No] depression. Physical Exam - Vital signs Vitals: Temp Pulse Resp BP Pulse Ox 98.2 F 85 18 101/59 L 78 L 06/27/20 01:18 06/27/20 01:18 06/27/20 01:18 06/27/20 01:18 06/27/20 01:18 - Notes Notes: CONSTITUTIONAL [Vital signs reviewed, O2 sats stay in the 90s on 2 L and dropped down to 84 on room air, patient mostly alert and oriented X 3 but at times seems to be falling asleep HEAD [Atraumatic, Normocephalic.] EYES [Eyes are normal to inspection, No discharge from eyes, Extraocular muscles intact, Sclera are normal, Conjunctiva are normal.] ENT [External ears normal to inspection, Nose examination normal, Mouth normal to inspection.] NECK [Normal ROM, No jugular venous distention, No meningeal signs, ] RESPIRATORY CHEST [Chest is nontender, Breath sounds normal, No respiratory distress.] CARDIOVASCULAR [RRR, No murmurs, Normal S1 S2, No rub, No gallop.] ABDOMEN [Abdomen is nontender, No pulsatile masses, No other masses, Bowel sounds normal, No distension, No peritoneal signs, No hernias.] BACK [There is no CVA Tenderness, There is no tenderness to palpation, Normal inspection.] UPPER EXTREMITY [Inspection normal, No cyanosis, No clubbing, No edema, LOWER EXTREMITY Lower extremity exam is significant for presence of a left [id number] amputation and a right below the knee amputation NEURO [No focal motor deficits, No focal sensory deficits, Speech normal.] SKIN [Skin is warm, Skin is dry, Skin is normal color.] PSYCHIATRIC [Normal affect. ] Course - Re-evaluation Re-evalutation: 06/27/20 05:43 Results of ED MSE discussed with patient. Recommendation for admission discussed with patient. Patient is agreeable with this. - Vital Signs Vital signs: Temp Pulse Resp BP Pulse Ox 98.3 F 85 10 L 132/77 H 94 06/27/20 05:12 06/27/20 01:18 06/27/20 03:01 06/27/20 03:00 06/27/20 03:01 - Laboratory Result Diagrams: 06/27/20 02:00 06/27/20 02:00 Laboratory results interpreted by me: 06/27/20 06/27/20 06/27/20 02:00 02:00 02:00 WBC 12.2 H RBC 2.83 L Hgb 8.0 L Hct 24.8 L RDW 21.0 H Seg Neuts % (Manual) 86 H Band Neutrophils % 7 H Lymphocytes % (Manual) 5 L Monocytes % (Manual) 2 L Abs Neuts (Manual) 11.3 H Chloride 97 L BUN 70 H Creatinine 1.72 H Est GFR ( Amer) 38 L Est GFR (MDRD) Non-Af 31 L Glucose 292 H NT-Pro-B Natriuret Pep 42700 H Urine Protein Ur Leukocyte Esterase Urine Ascorbic Acid 06/27/20 03:40 WBC RBC Hgb Hct RDW Seg Neuts % (Manual) Band Neutrophils % Lymphocytes % (Manual) Monocytes % (Manual) Abs Neuts (Manual) Chloride BUN Creatinine Est GFR ( Amer) Est GFR (MDRD) Non-Af Glucose NT-Pro-B Natriuret Pep Urine Protein 100 H Ur Leukocyte Esterase MODERATE H Urine Ascorbic Acid 40 H - Diagnostic Test Radiology reviewed: Reports reviewed - EKG Interpretation by Me Additional EKG results interpreted by me: 06/27/20 05:43 EKG obtained on 06/27/2020 at 0215 hrs. was interpreted by this MD. Findings normal sinus rhythm, rate 77, normal axis, NH interval appears to be within normal limits, P waves proceed QRS complexes, a nonspecific intraventricular conduction delay appears to be present, QTC is 494, there are no obvious patterns of ST segment elevation, depression or reciprocal changes seen to suggest acute myocardial ischemia or infarction. When compared with previous EKG dated 06/20/2020 the morphology of the 2 EKGs is grossly similar. Impression: Normal sinus rhythm with nonspecific intraventricular conduction delay and nonspecific ST segments. - Consults Dr. Macedo, Hospitalist Time consulted: 05:11 Reason for consultation: 06/27/20 05:46 CHF exacerbation with hypoxia 06/27/20 05:46 Consulted provider: will come to ER Discharge - Discharge Clinical Impression: Hypoxia Acute exacerbation of CHF (congestive heart failure) Qualifiers: Heart failure type: unspecified Qualified Code(s): I50.9 - Heart failure, unsp ecified Condition: Stable Disposition: ADMITTED INPATIENT Admitting Provider: Unit Admitted: Telemetry
--- NOTE | 2020-06-27 03:35 | RADIOLOGY REPORT (SQ) ---
EXAM DESCRIPTION: XR CHEST 1 VIEW COMPLETED DATE/TME: 06/27/2020 02:28 CLINICAL HISTORY: 49 years Female, SOB COMPARISON: 06/20/20 NUMBER OF VIEWS/TECHNIQUE: 1/AP FINDINGS: Moderate central edema pattern. Sternotomy. Cardiac/mediastinal hardware/clips. Normal cardiac silhouette size. No pneumothorax. Stable bony thorax. IMPRESSION: Moderate central edema pattern. Interval worsening.
[2020-06-27] MEDS ORDERED: ONDANSETRON HCL INJ/PF 4 MG/2 ML SDV IV ONE (03:49)
[2020-06-27] MEDS ORDERED: FUROSEMIDE INJ/PF 20 MG/2 ML SDV IV ONE ×2 (03:50→03:54)
[2020-06-27 04:20] LABS: APPEARANCE,URINE SLIGHTLY-CLOUDY; BILIRUBIN,URINE NEGATIVE (NEGATIVE); COLOR,URINE YELLOW; GLUCOSE, URINE NEGATIVE (NEGATIVE); KETONES,URINE NEGATIVE (NEGATIVE); LEUKOCYTE ESTERASE,URINE MODERATE (NEGATIVE); NITRITE,URINE NEGATIVE (NEGATIVE); PROTEIN,URINE 100 mg/dL (NEGATIVE); URINE SPECIFIC GRAVITY 1.015; UROBILINOGEN,URINE NEGATIVE mg/dL (<2.0)
[2020-06-27] MEDS ORDERED: ACETAMINOPHEN 325 MG TABLET PO PRN (05:43)
[2020-06-27] MEDS ORDERED: GLUCAGON,HUMAN RECOMB 1 MG INJ IM PRN (05:51)
[2020-06-27] MEDS ORDERED: DEXTROSE 50%-WATER 25 GM/50 ML DISP.SYRIN IV PRN ×2 (05:51)
[2020-06-27] MEDS ORDERED: DEXTROSE 40% GEL 15 GM TUBE PO PRN ×2 (05:51)
--- NOTE | 2020-06-27 06:33 | PDOC H&P ---
History of Present Illness Patient complains of: Shortness of breath History of Present Illness: HELDER SERNA is a 49 year old female with a history of systolic heart failure, hypertension, hyperlipidemia, type 2 diabetes, A. fib status post ablation, CAD status post CABG, peripheral arterial disease status post right BKA and left AKA and CKD stage IIIb who presents with 2 days duration of worsening of shortness of breath with associated orthopnea. Patient also reports that she has been feeling fatigued and lethargic. She endorses dysuria and increased frequency of urination. She has also been feeling nauseous and had few episodes of nonbloody and nonbilious vomiting. She has cough productive of scanty whitish sputum. She denies any fever, chills, chest pain, palpitation, dizziness or any change in her bowel habit. She denies any hematochezia, melena or hematemesis. She denies bleeding from any site. Past Medical History Cardiac Medical History: Reports: Atrial Fibrillation, Congestive Heart Failure, Coronary Artery Disease, DVT, Myocardial Infarction - x3 per patient, Hyperlipidema, Hypertension, Peripheral Vascular Disease Pulmonary Medical History: Reports: Bronchitis, Chronic Obstructive Pulmonary Disease (COPD), Pneumonia Neurological Medical History: Denies: Migraine, Seizures Endocrine Medical History: Reports: Diabetes Mellitus Type 2 Denies: Diabetes Mellitus Type 1, Hyperthyroidism, Hypothyroidism GI Medical History: Reports: Gastroesophageal Reflux Disease, Hiatal Hernia Denies: Cirrhosis, Crohn's Disease, Hepatitis, Ulcerative Colitis Musculoskeltal Medical History: Reports: Arthritis Denies: Fibromyalgia, Gout Skin Medical History: Denies: Eczema, Psoriasis Psychiatric Medical History: Reports: Depression Hematology: Reports: Anemia Denies: Bleeding Tendencies Past Surgical History Past Surgical History: Reports: Amputation - Right BKA, Left AKA, Cardiac Catheterization, Section - x2, Cholecystectomy, Coronary Artery Bypass Graft - x3, Herniorrhaphy - Ventral hernia, Orthopedic Surgery - Knee surgery, Tubal Ligation, Vascular Surgery - Left iliofemoral bypass, Other - Peripheral nerve stimulator implantation Social History Information Source: Patient Lives with: Family Smoking Status: Former Smoker Frequency of Alcohol Use: None Hx Recreational Drug Use: No Drugs: None Hx Prescription Drug Abuse: No - Advance Directive Resuscitation Status: Full Code Family History Family History: Reviewed & Not Pertinent, CAD, CVA, DM, Hypertension, Malignancy, Other - Kidney disease Parental Family History Reviewed: Yes Children Family History Reviewed: Yes Sibling(s) Family History Reviewed.: Yes Medication/Allergy Home Medications: Aspirin [Adult Low Dose Aspirin EC] 81 mg PO DAILY 07/02/19 Buspirone HCl [Buspar 15 mg Tablet] 7.5 mg PO DAILY 07/02/19 Carvedilol [Coreg 3.125 mg Tablet] 3.125 mg PO Q12 07/02/19 Fenofibrate Nanocrystallized [Tricor 145 mg Tablet] 145 mg PO WBRKFST 07/02/19 Metoclopramide HCl [Reglan 10 mg Tablet] 10 mg PO QID 07/02/19 Pantoprazole Sodium [Protonix [address] Tablet] 40 mg PO DAILY 07/02/19 Atorvastatin Calcium [Lipitor 80 mg Tablet] 80 mg PO QHS tablet 07/04/19 Nitroglycerin [Nitrostat 0.4 mg (1/150 Gr) Tabs 25/Bottle] 1 tab SL Q5MP PRN 10/24/19 Ascorbic Acid [Vitamin C 500 mg Tablet] 500 mg PO DAILY 04/01/20 Ferrous Sulfate [Feosol 325 mg Tablet] 325 mg PO WBRKFST 04/01/20 Insulin Glargine,Hum.rec.anlog [Lantus Insulin 100 Unit/1 ml 10 ml] 20 units SQ DAILY 04/01/20 Insulin Regular, Human [Humulin R (Reg) Insulin 100 unit/mL] 8 units SQ AC 04/01/20 Losartan Potassium [Cozaar 25 mg Tablet] 25 mg PO DAILY 04/01/20 Magnesium Oxide [Mag-Ox 400 mg Tablet] 400 mg PO BID 04/01/20 Multivitamin [Multiple Vitamins] 1 tab PO DAILY 04/01/20 Rivaroxaban [Xarelto] 20 mg PO QPM 04/01/20 Spironolactone [Aldactone 25 mg Tablet] 25 mg PO DAILY 04/01/20 Baclofen [Baclofen 10 mg Tablet] 10 mg PO TIDP PRN tablet 05/21/20 Bumetanide [Bumex 1 mg Tablet] 2 mg PO BID 30 Days #60 tablet 05/21/20 Silver Sulfadiazine [Silvadene 1% Cream 25 gm] 1 applic TP DAILY tube 05/21/20 Citalopram Hydrobromide [Citalopram HBr] 40 mg PO DAILY 05/31/20 Gabapentin [Neurontin 300 mg Capsule] 600 mg PO Q6 05/31/20 Metformin HCl [Metformin HCl ER] 500 mg PO DAILY 05/31/20 Ondansetron [Zofran Odt 4 mg Tablet] 8 mg PO Q4HP PRN 05/31/20 Oxycodone HCl [Oxy-Ir 5 mg Tablet] 10 mg PO Q8HP PRN 05/31/20 Allergies/Adverse Reactions: amlodipine Allergy (Severe, Verified 05/31/20 10:42) Hallucinations isosorbide [From Imdur] Allergy (Intermediate, Verified 05/31/20 10:42) RASH zolpidem [From Ambien] Adverse Reaction (Severe, Verified 05/31/20 10:42) Hallucinations Review of Systems Constitutional: ABSENT: chills, fever(s), headache(s), weight gain, weight loss Eyes: ABSENT: visual disturbances Ears: ABSENT: hearing changes Nose, Mouth, and Throat: ABSENT: headache(s), mouth pain, sore throat Cardiovascular: PRESENT: as per HPI Respiratory: PRESENT: as per HPI Gastrointestinal: PRESENT: as per HPI Genitourinary: PRESENT: as per HPI Musculoskeletal: ABSENT: joint swelling Integumentary: ABSENT: rash, wounds Neurological: ABSENT: abnormal speech, confusion, dizziness, focal weakness, syncope Psychiatric: ABSENT: anxiety, depression, homidical ideation, suicidal ideation Endocrine: ABSENT: cold intolerance, heat intolerance, polydipsia, polyuria Hematologic/Lymphatic: ABSENT: easy bleeding, easy bruising Physical Exam Vital Signs: Temp Pulse Resp BP Pulse Ox 98.3 F 85 10 L 132/77 H 94 06/27/20 05:12 06/27/20 01:18 06/27/20 03:01 06/27/20 03:00 06/27/20 03:01 Intake & Output 06/25/20 06/26/20 06/27/20 06:59 06:59 06:59 Weight 81.5 kg Additional comments: GENERAL APPEARANCE: Lethargic, frequently falls asleep between conversation, oriented x3 HEENT: Normocephalic and atraumatic. No scleral icterus. Pale conjunctiva. Dry oral mucosa NECK: Supple. No evidence of thyroid enlargement. No lymphadenopathy or tenderness. Difficult to appreciate JVD due to body habitus CHEST: Symmetric. Nontender to palpation. LUNGS: Breath sounds are equal and clear bilaterally. No wheezes, rhonchi, or rales. HEART: Regular rate and rhythm with normal S1 and S2. No murmurs, gallops, or rubs. ABDOMEN: Distended, soft, positive bowel sounds, no direct or rebound tenderness. No organomegaly or mass detected. EXTREMITIES: No cyanosis or clubbing. Has right BKA and left AKA. MUSCULOSKELETAL: No deformity, atrophy or swelling noted PSYCHIATRIC: Appropriate mood and affect. SKIN: Warm, dry, and well perfused. No lesions or rashes are noted. NEUROLOGIC: No focal sensory or motor deficits are noted. Results Laboratory Results: 06/27/20 02:00 06/27/20 02:00 06/27/20 06/27/20 06/27/20 02:00 02:00 03:40 WBC 12.2 H RBC 2.83 L Hgb 8.0 L Hct 24.8 L MCV 87 MCH 28.3 MCHC 32.3 RDW 21.0 H Plt Count 205 Seg Neutrophils % Not Reportable Sodium 137.0 Potassium 4.4 Chloride 97 L Carbon Dioxide 28 Anion Gap 12 BUN 70 H Creatinine 1.72 H Est GFR ( Amer) 38 L Glucose 292 H Calcium 9.1 Total Bilirubin 0.7 AST 24 Alkaline Phosphatase 54 Total Protein 7.1 Albumin 3.8 Urine Color YELLOW Urine Appearance SLIGHTLY-CLOUDY Urine pH 6.0 Ur Specific [place] 1.015 Urine Protein 100 H Urine Glucose (UA) NEGATIVE Urine Ketones NEGATIVE Urine Blood NEGATIVE Urine Nitrite NEGATIVE Ur Leukocyte Esterase MODERATE H Urine WBC (Auto) 84 Urine RBC (Auto) 4 06/27/20 06/27/20 02:00 02:00 Troponin I 0.074 NT-Pro-B Natriuret Pep 62220 H Impressions: Chest X-Ray 06/27/20 01:40 IMPRESSION: Moderate central edema pattern. Interval worsening. Assessment and Plan - Diagnosis (1) Acute respiratory failure with hypoxia Is this a current diagnosis for this admission?: Yes Plan: Presented with shortness of breath On arrival oxygen saturation was 84% on room air Likely due to acute decompensated heart failure Patient appears lethargic and will get VBG to rule out CO2 narcosis Chest x-ray showed signs of pulmonary edema BNP was elevated at 11,700 Started on Lasix 40 mg IV twice daily Strict I&O's, daily weights, fluid restriction Continue intranasal oxygen Follow-up with venous blood gas (2) 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 Is this a current diagnosis for this admission?: Yes Plan: Presents with shortness of breath, orthopnea, elevated BNP Chest x-ray shows signs of pulmonary edema Continue IV Lasix, strict I&O's, daily weight, fluid restriction Monitor electrolytes and keep potassium above 4 and magnesium above 2 Placed on telemetry (3) Elevated troponin Is this a current diagnosis for this admission?: Yes Plan: Currently denies any chest pain EKG shows ST depression on lateral leads but is unchanged from her previous studies Initial troponin was 0.074 Likely type II non-STEMI due to CHF Continue managing heart failure as stated above Continue aspirin and statin Trend cardiac enzymes On telemetry monitoring (4) Acute urinary tract infection Is this a current diagnosis for this admission?: Yes Plan: UA shows moderate leukocytes trace and many WBCs per high-power field Started on ceftriaxone Follow-up with urine culture (5) Anemia Is this a current diagnosis for this admission?: Yes Plan: H&H on this encounter was 8.0/24.8 Patient was transfused with 2 units of packed RBC on her left 4 weeks back On discharge hemoglobin was 11 and a week ago it was 8.7 Likely due to GI bleed Held Xarelto for now Trend CBC If H&H drops will consider surgery consult for possible EGD and colonoscopy (6) CAD (coronary artery disease), deering coronary artery Qualifiers: Is this a current diagnosis for this admission?: Yes Plan: Has a history of CABG Currently is chest pain-free Elevated troponin likely due to non-STEMI type II Continue management as stated above (7) Diabetes mellitus type 2 in obese Is this a current diagnosis for this admission?: Yes Plan: Presented with hyperglycemia with blood sugar of 292 Continued her on Lantus 15 units nightly, regular insulin 5 units AC Sliding scale insulin, Accu-Chek and hypoglycemia protocol (8) History of atrial fibrillation Is this a current diagnosis for this admission?: Yes Plan: Status post ablation Currently is in sinus rhythm with heart rates in the 80s [id number] score 5, has bled score of 3 Patient had severe anemia requiring transfusion in the past On this encounter hemoglobin is 8.0 Hold Xarelto for now Will consider cardiology consult for assistance regarding anticoagulation management in the setting of recurrent anemia requiring multiple transfusions (9) Hypertension Qualifiers: Hypertension type: essential hypertension Qualified Code(s): I10 - Essential (primary) hypertension Is this a current diagnosis for this admission?: Yes Plan: Continue home medications (10) Peripheral arterial disease Is this a current diagnosis for this admission?: Yes Plan: Status post right BKA and left AKA Continue aspirin and atorvastatin - Time Time Spent with patient: 35 or more minutes Total Critical Time (Minutes): 45 Medications reviewed and adjusted accordingly: Yes Anticipated Discharge Disposition: Home with Home Health Anticipated Discharge Timeframe: within 48 hours - Inpatient Certification Based on my medical assessment, after consideration of the patient's comorbidities, presenting symptoms, or acuity I expect that the services needed warrant INPATIENT care.: Yes I certify that my determination is in accordance with my understanding of Medicare's requirements for reasonable and necessary INPATIENT services [42 CFR 412.3e].: Yes Medical Necessity: Significant Comorbidiites Make Outpatient Treatment Too Risky, Need Close Monitoring Due to Risk of Patient Decompensation, Need For Continuous Telemetry Monitoring, Need for IV Antibiotics, Risk of Complication if Not Cared For in Hospital Post Hospital Care: D/C or Transfer Summary
[2020-06-27] MEDS: PANTOPRAZOLE SODIUM 40 MG TABLET.DR PO SCH (06:45)
[2020-06-27] MEDS: CEFTRIAXONE 1 GM/D5W RTU 1 GM/50 ML RTUPB IV SCH (07:01)
--- NOTE | 2020-06-27 08:35 | EKG REPORT ---
SEVERITY:- ABNORMAL ECG - SINUS RHYTHM PROBABLE LEFT ATRIAL ABNORMALITY LVH WITH REPOLARIZATION ABNORMALITY NONSPECIFIC INTRAVENTRICULAR CONDUCTION DELAY BORDERLINE ST DEPRESSION, LATERAL LEADS : Confirmed by: Jeremias Murphy MD 27-Jun-2020 08:35:12
[2020-06-27] MEDS: INSULIN REG, HUMAN 100 UNIT/ML 3 ML VIAL (PYX) SUBCUT SCH ×5 (08:50→21:07)
[2020-06-27] MEDS ORDERED: FUROSEMIDE INJ/PF 40 MG/4 ML SDV IV SCH (10:00)
[2020-06-27] MEDS: CITALOPRAM HYDROBROMIDE 20 MG TABLET PO SCH (10:17)
[2020-06-27] MEDS: FERROUS SULFATE 325 MG TABLET PO SCH (10:17)
[2020-06-27] MEDS: FUROSEMIDE INJ/PF 100 MG/10 ML SDV IV SCH ×2 (10:17→23:36)
[2020-06-27] MEDS: CARVEDILOL 3.125 MG TABLET PO SCH ×2 (10:17→21:07)
[2020-06-27] MEDS: ASPIRIN 81 MG TABLET, CHEWABLE PO SCH (10:17)
[2020-06-27 10:43] LABS: VENOUS BLOOD BASE EXCESS 2.4 mmol/L; VENOUS BLOOD HCO3 27.6 mmol/L (20-32); VENOUS BLOOD PCO2 46.4 mmHg (35-63); VENOUS BLOOD PH 7.39 (7.30-7.42)
[2020-06-27] MEDS ORDERED: ETOMIDATE INJ/PF 20 MG/10 ML SDV IV ONE (14:46)
[2020-06-27] MEDS: ONDANSETRON HCL INJ/PF 4 MG/2 ML SDV IV PRN (16:06)
[2020-06-27 18:36] LABS: HEMATOCRIT 22.2 % (36.0-47.0); MEAN CORPUSCULAR HEMOGLOBIN 29.1 pg (27.0-33.4); MEAN CORPUSCULAR HGB CONC 32.7 g/dL (32.0-36.0); MEAN CORPUSCULAR VOLUME 89 fl (80-97); PLATELET COUNT 194 10^3/uL (150-450); RED BLOOD COUNT 2.48 10^6/uL (3.72-5.28); RED CELL DISTRIBUTION WIDTH 21.5 % (11.5-14.0); WHITE BLOOD COUNT 9.2 10^3/uL (4.0-10.5)
[2020-06-27 18:38] LABS: HEMOGLOBIN 7.2 g/dL (12.0-15.5)
[2020-06-27] MEDS ORDERED: NORMAL SALINE 250 ML IV PRN ×2 (18:40)
--- NOTE | 2020-06-27 18:51 | Progress Note ---
Provider Note Provider Note: Patient evaluated on afternoon rounds. Patient sitting upright in bed, tells me that she is overall feeling better though continued to complain of shortness of breath. She is on 2L NC with O2 sat >95%. She reports recent hx NVD, but denies while in hospital. Her BPs consistently low 100s/60. Trop on initial labs 0.074, repeat trop pending. Hgb on admission 8.0, hgb 7.2 on repeat labs. Pt wit hx anemia requiring blood transfusions in the past, Type and screen pending, 2u PRBC ordered; without active signs of bleeding. Historically on xarelto, will hold for now. [id number] score 5, has bled score of 3, herat rate in 80s. Consider surgery consult for EGD/Colonoscopy if hgb continues to drop. Otherwise continue to monitor. BMP, CBC, Mag in the morning. Increased lasix to 80mg IV BID, home med 2 bumex daily may need to increase IV lasix dose. Pt tells me that her medical device engineer is Dr. Perkins with [facility], plan to contact tomorrow.
[2020-06-27 18:58] LABS: ANION GAP 9 (5-19); BLOOD UREA NITROGEN 83 mg/dL (7-20); CALCIUM 8.6 mg/dL (8.4-10.2); CARBON DIOXIDE 28 mmol/L (22-30); CHLORIDE 96 mmol/L (98-107); GLUCOSE 256 mg/dL (75-110); POTASSIUM 4.6 mmol/L (3.6-5.0)
[2020-06-27] MEDS: INSULIN GLARGINE,HUM.REC.ANLOG 1,000 UNIT/10 ML VIAL SUBCUT SCH (21:06)
[2020-06-27] MEDS: ATORVASTATIN CALCIUM 40 MG TABLET PO SCH (21:07)
[2020-06-27] MEDS: OXYCODONE HCL IR 5 MG TABLET PO PRN (21:39)
[2020-06-28 06:31] LABS: ABSOLUTE BASOPHILS # (AUTO) 0.1 10^3/uL (0.0-0.2); ABSOLUTE EOSINOPHILS # (AUTO) 0.2 10^3/uL (0.0-0.6); ABSOLUTE LYMPHOCYTES (AUTO) 1.7 10^3/uL (0.5-4.7); ABSOLUTE MONOCYTES (AUTO) 0.8 10^3/uL (0.1-1.4); ABSOLUTE NEUT (AUTO) 5.9 10^3/uL (1.7-8.2); BASOPHILS % (AUTO) 0.8 % (0-2); HEMATOCRIT 27.1 % (36.0-47.0); LYMPHOCYTES % (AUTO) 19.9 % (13-45); MEAN CORPUSCULAR HEMOGLOBIN 29.3 pg (27.0-33.4); MEAN CORPUSCULAR HGB CONC 33.4 g/dL (32.0-36.0); MEAN CORPUSCULAR VOLUME 88 fl (80-97); MONOCYTES % (AUTO) 9.1 % (3-13); PLATELET COUNT 193 10^3/uL (150-450); RED BLOOD COUNT 3.08 10^6/uL (3.72-5.28); RED CELL DISTRIBUTION WIDTH 19.1 % (11.5-14.0); SEGMENTED NEUTROPHILS % (AUTO) 68.2 % (42-78); TOTAL CELLS COUNTED % (AUTO) 100 %; WHITE BLOOD COUNT 8.6 10^3/uL (4.0-10.5)
[2020-06-28 06:53] LABS: ANION GAP 9 (5-19); BLOOD UREA NITROGEN 90 mg/dL (7-20); CALCIUM 8.7 mg/dL (8.4-10.2); CARBON DIOXIDE 29 mmol/L (22-30); CHLORIDE 96 mmol/L (98-107); GLUCOSE 117 mg/dL (75-110); POTASSIUM 4.3 mmol/L (3.6-5.0)
[2020-06-28] MEDS: PANTOPRAZOLE SODIUM 40 MG TABLET.DR PO SCH (07:09)
[2020-06-28] MEDS: INSULIN REG, HUMAN 100 UNIT/ML 3 ML VIAL (PYX) SUBCUT SCH ×5 (07:49→22:41)
[2020-06-28] MEDS: OXYCODONE HCL IR 5 MG TABLET PO PRN (08:09)
--- NOTE | 2020-06-28 08:10 | EKG REPORT ---
SEVERITY:- ABNORMAL ECG - SINUS RHYTHM NONSPECIFIC INTRAVENTRICULAR CONDUCTION DELAY BORDERLINE ST DEPRESSION, LATERAL LEADS : Confirmed by: Sal Solis 28-Jun-2020 08:09:40
[2020-06-28] MEDS: ASPIRIN 81 MG TABLET, CHEWABLE PO SCH (09:22)
[2020-06-28] MEDS: CITALOPRAM HYDROBROMIDE 20 MG TABLET PO SCH (09:23)
[2020-06-28] MEDS: FERROUS SULFATE 325 MG TABLET PO SCH (09:23)
[2020-06-28] MEDS: CARVEDILOL 3.125 MG TABLET PO SCH ×2 (09:25→22:46)
[2020-06-28] MEDS: CEFTRIAXONE 1 GM/D5W RTU 1 GM/50 ML RTUPB IV SCH (09:33)
--- NOTE | 2020-06-28 10:22 | PDOC CONSULTATION ---
Consultation Consult Date: 06/28/20 Attending physician:: ELIANA FITZGERALD Provider Consulted: CATRINA KIM Consult reason:: CHF History of Present Illness Admission Date/PCP: 06/27/20 07:09 History of Present Illness: HELDER SERNA is a 49 year old female with history of coronary artery disease status post myocardial infarction in the past and status post three-vessel CABG in 2009, peripheral vascular disease status post right below the knee amputation and left [id number] amputation, heart failure with reduced ejection fraction, ischemic cardiomyopathy, hypertension, hyperlipidemia, chronic kidney disease, type 2 diabetes, ex-smoker who quit in March 2010 who is consulted to our service for further evaluation and management of heart failure. The patient had been seen in our emergency room at least 3 times since May 2020 for different complaints but most notably for shortness of breath. At some point she was diagnosed with pneumonia. This morning she states that she began with worsening of shortness of breath as well as edema along with some PND approximately 2 weeks ago. Her symptoms progressively worsened until she sought medical attention in our emergency room room yesterday and was admitted. She was noted to have a significant anemia and was given a blood transfusion. This morning she feels slightly better however continues to have some shortness of breath. She is followed by a salesman/owner at [facility] in [place], [place] who ordered an outpatient cardiac rhythm monitoring device for complaints of palpitations and shortness of breath which the patient is still wearing. Of note, she has an appointment with the salesman/owner on 06 July 2020. Physical exam on 06/28/2020: GENERAL: Pleasant and conversational. Oriented x3 with normal mood. Not in acute distress. Well groomed and well developed. Sitting up in bed, no acute complaints. HEENT: Normocephalic, atraumatic. Pupils equal. Sclerae anicteric. Oropharynx moist. NECK: No JVD. No carotid bruits. LUNGS: Mild crackles at both bases. Normal respiratory effort without the use of accessory muscles or intercostal retractions. CARDIOVASCULAR: Regular rate and rhythm, normal S1 and S2 without murmurs, rubs, or gallops. PMI not displaced. ABDOMEN: No masses or tenderness to palpation. No bruit. No splenomegaly or hepatomegaly. No abdominal aorta bruit noted. EXTREMITIES: Below the knee amputation on the right, [id number] amputation on the left. SKIN: No lesions or rashes. MUSCULOSKELETAL: No chest tenderness to palpation. NEUROLOGIC: Nonfocal. Past Medical History Cardiac Medical History: Reports: Atrial Fibrillation, Congestive Heart Failure, Coronary Artery Disease, DVT, Myocardial Infarction - x3 per patient, Hyperlipidema, Hypertension, Peripheral Vascular Disease Pulmonary Medical History: Reports: Bronchitis, Chronic Obstructive Pulmonary Disease (COPD), Pneumonia Neurological Medical History: Denies: Migraine, Seizures Endocrine Medical History: Reports: Diabetes Mellitus Type 2 Denies: Diabetes Mellitus Type 1, Hyperthyroidism, Hypothyroidism GI Medical History: Reports: Gastroesophageal Reflux Disease, Hiatal Hernia Denies: Cirrhosis, Crohn's Disease, Hepatitis, Ulcerative Colitis Musculoskeltal Medical History: Reports: Arthritis Denies: Fibromyalgia, Gout Skin Medical History: Denies: Eczema, Psoriasis Psychiatric Medical History: Reports: Depression Hematology: Reports: Anemia Denies: Bleeding Tendencies Past Surgical History Past Surgical History: Reports: Amputation - Right BKA, Left AKA, Cardiac Catheterization, Section - x2, Cholecystectomy, Coronary Artery Bypass Graft - x3, Herniorrhaphy - Ventral hernia, Orthopedic Surgery - Knee surgery, Tubal Ligation, Vascular Surgery - Left iliofemoral bypass, Other - Peripheral nerve stimulator implantation Social History Lives with: Family Smoking Status: Former Smoker Frequency of Alcohol Use: None Hx Recreational Drug Use: No Drugs: None Hx Prescription Drug Abuse: No - Advance Directive Resuscitation Status: Full Code Family History Family History: Reviewed & Not Pertinent, CAD, CVA, DM, Hypertension, Malignancy, Other - Kidney disease Parental Family History Reviewed: Yes Children Family History Reviewed: Yes Sibling(s) Family History Reviewed.: Yes Medication/Allergy Home Medications: Ascorbic Acid [Vitamin C] 500 mg PO DAILY 06/27/20 Aspirin [Lo-Dose Aspirin EC] 81 mg PO DAILY 06/27/20 Atorvastatin Calcium [Lipitor 80 mg Tablet] 80 mg PO QHS 06/27/20 Baclofen [Baclofen 10 mg Tablet] 10 mg PO QIDP PRN 06/27/20 Bumetanide [Bumex 1 mg Tablet] 2 mg PO BID 06/27/20 Buspirone HCl 7.5 mg PO BID 06/27/20 Carvedilol [Coreg 3.125 mg Tablet] 3.125 mg PO Q12 06/27/20 Citalopram Hydrobromide [Citalopram HBr] 40 mg PO DAILY 06/27/20 Ergocalciferol (Vitamin D2) [Drisdol 50,000 Unit (1.25MG) Capsule] 1 cap PO MO@1000 06/27/20 Fenofibrate Nanocrystallized [Tricor 145 mg Tablet] 145 mg PO DAILY 06/27/20 Ferrous Sulfate [Feosol 325 mg Tablet] 650 mg PO Q2D 06/27/20 Gabapentin [Neurontin 300 mg Capsule] 600 mg PO Q6 06/27/20 Insulin Glargine,Hum.rec.anlog [Lantus Insulin 100 Unit/1 ml 10 ml] 20 unit SUBCUT QHS 06/27/20 Insulin Regular, Human [Humulin R (Pyxis) Insulin 100 Unit/ml 3Ml] 8 unit SUBCUT AC 06/27/20 Losartan Potassium [Cozaar 25 mg Tablet] 25 mg PO DAILY 06/27/20 Magnesium Oxide [Mag-Ox 400 mg Tablet] 400 mg PO BID 06/27/20 Metoclopramide HCl [Reglan 10 mg Tablet] 10 mg PO ACHS 06/27/20 Multivitamin [Tab-A-Mariela (Multiple Vitamin) Tablet] 1 tab PO DAILY 06/27/20 Nitroglycerin [Nitrostat 0.4 mg (1/150 Gr) Tabs 25/Bottle] 1 tab SL Q5MP PRN 06/27/20 [place]-3 Acid Ethyl Esters [Lovaza 1 gm Capsule] 4 gm PO DAILY 06/27/20 Ondansetron [Zofran Odt 4 mg Tablet] 8 mg PO Q6HP PRN 06/27/20 Oxycodone HCl [Oxy-Ir 5 mg Tablet] 10 mg PO TIDP PRN 06/27/20 Pantoprazole Sodium [Protonix [address] Tablet] 40 mg PO DAILY 06/27/20 Rivaroxaban [Xarelto] 20 mg PO QPM 06/27/20 Silver Sulfadiazine [Silvadene 1% Cream 25 gm] 1 applic TOP DAILY 06/27/20 Spironolactone [Aldactone 25 mg Tablet] 25 mg PO DAILY 06/27/20 Trazodone HCl [Desyrel 50 mg Tablet] 50 mg PO QHS 06/27/20 Allergies/Adverse Reactions: amlodipine Allergy (Severe, Verified 05/31/20 10:42) Hallucinations isosorbide [From Imdur] Allergy (Intermediate, Verified 05/31/20 10:42) RASH zolpidem [From Ambien] Adverse Reaction (Severe, Verified 05/31/20 10:42) Hallucinations Physical Exam Vital Signs: Temp Pulse Resp BP Pulse Ox 97.5 F 66 18 106/64 96 06/28/20 08:47 06/28/20 08:00 06/28/20 08:00 06/28/20 08:00 06/28/20 08:00 Intake & Output 06/27/20 06/28/20 06/29/20 06:59 06:59 06:59 Intake Total 1572 Output Total 800 Balance 772 Weight 81.5 kg 72.7 kg Results Laboratory Results: 06/28/20 06:13 06/28/20 06:13 06/27/20 06/27/20 06/27/20 10:32 18:25 18:25 WBC 9.2 RBC 2.48 L Hgb 7.2 L Hct 22.2 L MCV 89 MCH 29.1 MCHC 32.7 RDW 21.5 H Plt Count 194 Seg Neutrophils % VBG pH 7.39 VBG pCO2 46.4 VBG HCO3 27.6 VBG Base Excess 2.4 Sodium 132.8 L Potassium 4.6 Chloride 96 L Carbon Dioxide 28 Anion Gap 9 BUN 83 H Creatinine 2.40 H Est GFR ( Amer) 26 L Glucose 256 H Calcium 8.6 Magnesium 2.6 H Blood Type Antibody Screen 06/27/20 06/28/20 06/28/20 18:50 06:13 06:13 WBC 8.6 RBC 3.08 L Hgb 9.0 L Hct 27.1 L MCV 88 MCH 29.3 MCHC 33.4 RDW 19.1 H Plt Count 193 Seg Neutrophils % 68.2 VBG pH VBG pCO2 VBG HCO3 VBG Base Excess Sodium 134.4 L Potassium 4.3 Chloride 96 L Carbon Dioxide 29 Anion Gap 9 BUN 90 H Creatinine 2.66 H Est GFR ( Amer) 23 L Glucose 117 H Calcium 8.7 Magnesium 2.7 H Blood Type O POSITIVE Antibody Screen NEGATIVE 06/27/20 06/27/20 06/27/20 02:00 02:00 18:25 Troponin I 0.074 0.221 NT-Pro-B Natriuret Pep 38092 H 06/27/20 22:57 Troponin I 0.183 NT-Pro-B Natriuret Pep Impressions: Chest X-Ray 06/27/20 01:40 IMPRESSION: Moderate central edema pattern. Interval worsening. Current Medication List Generic Name Dose Route Start Last Admin Trade Name Donq PRN Reason Stop Dose Admin Acetaminophen 650 mg 06/27/20 05:43 06/27/20 17:54 Acetaminophen 325 Mg Tablet PO 07/27/20 05:42 650 mg Q4HP PRN Administration FEVER >101 Aspirin 81 mg 06/27/20 10:00 06/28/20 09:22 Aspirin 81 Mg Tablet, Chewable PO 07/27/20 09:59 81 mg DAILY GLADIS Administration Atorvastatin Calcium 40 mg 06/27/20 22:00 06/27/20 21:07 Atorvastatin Calcium 40 Mg Tablet PO 07/27/20 21:59 40 mg QHS GLADIS Administration Carvedilol 3.125 mg 06/27/20 10:00 06/28/20 09:25 Carvedilol 3.125 Mg Tablet PO 07/27/20 09:59 3.125 mg Q12 GLADIS Administration Citalopram Hydrobromide 40 mg 06/27/20 10:00 06/28/20 09:23 Citalopram Hydrobromide 20 Mg Tablet PO 07/27/20 09:59 40 mg DAILY GLADIS Administration Dextrose 12.5 gm 06/27/20 05:51 Dextrose 50%-Water 25 Gm/50 Ml Disp.Syrin IV 07/27/20 05:50 PRN PRN FOR BG 50-69 IN ALERT PATIENT Protocol Dextrose 25 gm 06/27/20 05:51 Dextrose 50%-Water 25 Gm/50 Ml Disp.Syrin IV 07/27/20 05:50 PRN PRN PER PROTOCOL Protocol Ferrous Sulfate 325 mg 06/27/20 10:00 06/28/20 09:23 Ferrous Sulfate 325 Mg Tablet PO 07/27/20 09:59 325 mg DAILY GLADIS Administration Glucagon 1 mg 06/27/20 05:51 Glucagon,Human Recomb 1 Mg Inj IM 07/27/20 05:50 PRN PRN Evaluate for BG < 70 Protocol Glucose 15 gm 06/27/20 05:51 Dextrose 40% Gel 15 Gm Tube PO 07/27/20 05:50 PRN PRN FOR BG 50-69 IN ALERT PATIENT Protocol Glucose 30 gm 06/27/20 05:51 Dextrose 40% Gel 15 Gm Tube PO 07/27/20 05:50 PRN PRN FOR BG < 50 IN ALERT PATIENT Protocol Ceftriaxone Sodium/Dextrose 1 gm in 50 mls @ 100 mls/hr 06/27/20 06:30 06/28/20 09:33 Rocephin Rtu 1 Gm/D5w 50 Ml Premix IV 07/04/20 06:29 100 mls/hr DAILY GLADIS 100 mls/hr Administration Sodium Chloride 250 mls @ 30 mls/hr 06/27/20 18:40 Nacl 0.9% 250 Ml Iv Soln IV 06/28/20 18:39 .DURING TRANSFUSION PRN THIS MED IS NOT "PRN" Sodium Chloride 250 mls @ 0 mls/hr 06/27/20 18:40 Nacl 0.9% 250 Ml Iv Soln IV 06/28/20 18:39 CONTINUOUS PRN AFTER EACH UNIT As Directed Insulin Glargine 15 unit 06/27/20 22:00 06/27/20 21:06 Insulin Glargine,Hum.Rec.Anlog 1,000 Unit/10 Ml Vial SUBCUT 07/27/20 21:59 15 unit QHS [facility] Administration Insulin Human Regular 0 - 12 unit 06/27/20 08:00 06/28/20 07:49 Insulin Reg, Human 100 Unit/Ml 3 Ml Vial (Pyx) SUBCUT 07/27/20 07:59 Not Given ACHS [facility] Protocol Insulin Human Regular 5 unit 06/27/20 08:00 06/28/20 07:56 Insulin Reg, Human 100 Unit/Ml 3 Ml Vial (Pyx) SUBCUT 07/27/20 07:59 5 unit ACBRKFST GLADIS Administration Ondansetron HCl 4 mg 06/27/20 05:43 06/27/20 16:06 Ondansetron Hcl Inj/Pf 4 Mg/2 Ml Sdv IV 07/27/20 05:42 4 mg Q8HP PRN Administration FOR NAUSEA/VOMITING Oxycodone HCl 5 mg 06/27/20 21:13 06/28/20 08:09 Oxycodone Hcl Ir 5 Mg Tablet PO 07/04/20 21:12 5 mg Q8HP PRN Administration PAIN Pantoprazole Sodium 40 mg 06/27/20 06:00 06/28/20 07:09 Pantoprazole Sodium 40 Mg Tablet. PO 07/27/20 05:59 Not Given Q6AM GLADIS Discontinued Medications Generic Name Dose Route Start Last Admin Trade Name Franco PRN Reason Stop Dose Admin Furosemide 20 mg 06/27/20 03:50 06/27/20 04:01 Furosemide Inj/Pf 20 Mg/2 Ml Sdv IV 06/27/20 03:51 Not Given NOW ONE Furosemide 40 mg 06/27/20 03:54 06/27/20 04:11 Furosemide Inj/Pf 20 Mg/2 Ml Sdv IV 06/27/20 03:55 40 mg NOW ONE Administration Furosemide 40 mg 06/27/20 10:00 Furosemide Inj/Pf 40 Mg/4 Ml Sdv IV 07/27/20 09:59 Q12 GLADIS Furosemide 80 mg 06/27/20 10:00 06/27/20 23:36 Furosemide Inj/Pf 100 Mg/10 Ml Sdv IV 07/27/20 09:59 80 mg Q12 GLADIS Administration Ondansetron HCl 4 mg 06/27/20 03:49 06/27/20 04:11 Ondansetron Hcl Inj/Pf 4 Mg/2 Ml Sdv IV 06/27/20 03:50 4 mg NOW ONE Administration 06/28/20 06:13 06/28/20 06:13 MCV 88 fl (80-97) 06/28/20 06:13 MCH 29.3 pg (27.0-33.4) 06/28/20 06:13 MCHC 33.4 g/dL (32.0-36.0) 06/28/20 06:13 RDW 19.1 % (11.5-14.0) H 06/28/20 06:13 Seg Neutrophils % 68.2 % (42-78) 06/28/20 06:13 VBG pH 7.39 (7.30-7.42) 06/27/20 10:32 VBG pCO2 46.4 mmHg (35-63) 06/27/20 10:32 VBG HCO3 27.6 mmol/L (20-32) 06/27/20 10:32 VBG Base Excess 2.4 mmol/L 06/27/20 10:32 Chloride 96 mmol/L (98-107) L 06/28/20 06:13 Carbon Dioxide 29 mmol/L (22-30) 06/28/20 06:13 Anion Gap 9 (5-19) 06/28/20 06:13 Est GFR ( Amer) 23 (>60) L 06/28/20 06:13 Glucose 117 mg/dL (75-110) H 06/28/20 06:13 Calcium 8.7 mg/dL (8.4-10.2) 06/28/20 06:13 Magnesium 2.7 mg/dL (1.6-2.3) H 06/28/20 06:13 Total Bilirubin 0.7 mg/dL (0.2-1.3) 06/27/20 02:00 AST 24 U/L (14-36) 06/27/20 02:00 Alkaline Phosphatase 54 U/L (38-126) 06/27/20 02:00 Total Protein 7.1 g/dL (6.3-8.2) 06/27/20 02:00 Albumin 3.8 g/dL (3.5-5.0) 06/27/20 02:00 Urine Color YELLOW 06/27/20 03:40 Urine Appearance SLIGHTLY-CLOUDY 06/27/20 03:40 Urine pH 6.0 (5.0-9.0) 06/27/20 03:40 Ur Specific [place] 1.015 06/27/20 03:40 Urine Protein 100 mg/dL (NEGATIVE) H 06/27/20 03:40 Urine Glucose (UA) NEGATIVE mg/dL (NEGATIVE) 06/27/20 03:40 Urine Ketones NEGATIVE mg/dL (NEGATIVE) 06/27/20 03:40 Urine Blood NEGATIVE (NEGATIVE) 06/27/20 03:40 Urine Nitrite NEGATIVE (NEGATIVE) 06/27/20 03:40 Ur Leukocyte Esterase MODERATE (NEGATIVE) H 06/27/20 03:40 Urine WBC (Auto) 84 /HPF 06/27/20 03:40 Urine RBC (Auto) 4 /HPF 06/27/20 03:40 Blood Type O POSITIVE 06/27/20 18:50 Antibody Screen NEGATIVE 06/27/20 18:50 06/27/20 06/27/20 06/27/20 02:00 02:00 18:25 Troponin I 0.074 0.221 NT-Pro-B Natriuret Pep [id number] H 06/27/20 22:57 Troponin I 0.183 NT-Pro-B Natriuret Pep Assessment & Plan - Diagnosis (1) Acute exacerbation of CHF (congestive heart failure) Qualifiers: Heart failure type: unspecified Qualified Code(s): I50.9 - Heart failure, unspecified Is this a current diagnosis for this admission?: Yes Plan: 49-year-old female with known heart failure likely heart failure with reduced ejection fraction secondary to ischemic heart disease from her coronary artery disease who was admitted yesterday with signs and symptoms consistent with heart failure exacerbation. She feels slightly better this morning however her fluid balance is still +770 cc. Her case is complicated by acute kidney injury with a creatinine of 2.6. She continues to be fluid overloaded this morning with crackles at both bases although she is not on any acute distress. She is not on GDMT yet during this hospitalization. Recommendations: -Continue with current doses of Coreg. -Echocardiogram today, if systolic function is confirmed to be below 50% we will add Entresto. -Diuresis with Lasix 80 mg IV twice daily. -Restrict fluid intake to 1500 cc daily. -Low sodium diet, less than 1500 mg daily. -Strict intake and output. -Daily weights. -Daily BMP and magnesium and replace electrolytes as needed. -Nephrology consult. -Get cardiology records from [facility]. (2) Hyperlipidemia Is this a current diagnosis for this admission?: Yes Plan: The patient is currently on Lipitor 40 mg daily, I recommend increasing it to 80 mg daily with LFT check in 6 weeks. (3) Elevated troponin Is this a current diagnosis for this admission?: Yes Plan: Her current troponin is above her baseline and whether it represents a sequela of her acute heart failure exacerbation versus a primary ischemic event resulting in heart failure is unknown however the patient denies ischemic symptoms. She is already on a baby aspirin and beta-julius. Of note, she states that she had nuclear stress test in the recent past with normal results, I do not have those reports. Recommendations: -Echocardiogram as above. -Get records from outpatient salesman/owner as above. -Continue with cardiac telemetry. -Continue to trend enzymes. -Further recommendations pending review of cardiology records, echocardiogram results and patient's evolution in the hospital. (4) DANNI (acute kidney injury) Plan: Her creatinine during this admission is above her baseline. Recommend nephrology consult to assist in the management of her fluid. (5) CAD (coronary artery disease) of bypass graft Is this a current diagnosis for this admission?: Yes Plan: Per her report, the patient had myocardial infarctions in the past and underwent three-vessel CABG in 2009. She is currently free of ischemic symptoms. Please see above for further recommendations. (6) Hypertension Qualifiers: Hypertension type: essential hypertension Qualified Code(s): I10 - Essential (primary) hypertension Plan: Her blood pressure is at goal. We will continue with current medical management. (7) Diabetes mellitus type 2 in obese Is this a current diagnosis for this admission?: Yes Plan: Further management per hospitalist team.
[2020-06-28] MEDS ORDERED: ACETAMINOPHEN 325 MG TABLET PO PRN (11:30)
--- NOTE | 2020-06-28 11:57 | PDOC CONSULTATION ---
Consultation Consult Date: 06/28/20 Attending physician:: ELIANA FITZGERALD Provider Consulted: KIMANI CALVERT Consult reason:: Upper and lower endoscopy History of Present Illness Admission Date/PCP: 06/27/20 07:09 History of Present Illness: HELDER SERNA is a 49 year old female Patient is a 49-year-old white female with multiple medical problems, hospitalized for exacerbation congestive heart failure, getting extreme diuretic therapy, with chronic anemia, status post 2 unit transfusion. Patient has a long history of anemia, status post upper and lower endoscopy 2016 with findings of peptic ulcer disease, and polyps. Repeat endoscopy requested by hospitalist service. Patient denies hematemesis with dark stools, bright red blood per rectum. Past Medical History Cardiac Medical History: Reports: Atrial Fibrillation, Congestive Heart Failure, Coronary Artery Disease, DVT, Myocardial Infarction - x3 per patient, H yperlipidema, Hypertension, Peripheral Vascular Disease Pulmonary Medical History: Reports: Bronchitis, Chronic Obstructive Pulmonary Disease (COPD), Pneumonia Neurological Medical History: Denies: Migraine, Seizures Endocrine Medical History: Reports: Diabetes Mellitus Type 2 Denies: Diabetes Mellitus Type 1, Hyperthyroidism, Hypothyroidism GI Medical History: Reports: Gastroesophageal Reflux Disease, Hiatal Hernia Denies: Cirrhosis, Crohn's Disease, Hepatitis, Ulcerative Colitis Musculoskeltal Medical History: Reports: Arthritis Denies: Fibromyalgia, Gout Skin Medical History: Denies: Eczema, Psoriasis Psychiatric Medical History: Reports: Depression Hematology: Reports: Anemia Denies: Bleeding Tendencies Past Surgical History Past Surgical History: Reports: Amputation - Right BKA, Left AKA, Cardiac Catheterization, Section - x2, Cholecystectomy, Coronary Artery Bypass Graft - x3, Herniorrhaphy - Ventral hernia, Orthopedic Surgery - Knee surgery, Tubal Ligation, Vascular Surgery - Left iliofemoral bypass, Other - Peripheral n erve stimulator implantation Social History Information Source: Patient Lives with: Family Smoking Status: Former Smoker Frequency of Alcohol Use: None Hx Recreational Drug Use: No Drugs: None Hx Prescription Drug Abuse: No - Advance Directive Resuscitation Status: Full Code Family History Family History: None, Reviewed & Not Pertinent, CAD, CVA, DM, Hypertension, Malignancy, Other - Kidney disease Parental Family History Reviewed: No Children Family History Reviewed: No Sibling(s) Family History Reviewed.: No Medication/Allergy Home Medications: Ascorbic Acid [Vitamin C] 500 mg PO DAILY 06/27/20 Aspirin [Lo-Dose Aspirin EC] 81 mg PO DAILY 06/27/20 Atorvastatin Calcium [Lipitor 80 mg Tablet] 80 mg PO QHS 06/27/20 Baclofen [Baclofen 10 mg Tablet] 10 mg PO QIDP PRN 06/27/20 Bumetanide [Bumex 1 mg Tablet] 2 mg PO BID 06/27/20 Buspirone HCl 7.5 mg PO BID 06/27/20 Carvedilol [Coreg 3.125 mg Tablet] 3.125 mg PO Q12 06/27/20 Citalopram Hydrobromide [Citalopram HBr] 40 mg PO DAILY 06/27/20 Ergocalciferol (Vitamin D2) [Drisdol 50,000 Unit (1.25MG) Capsule] 1 cap PO MO@1000 06/27/20 Fenofibrate Nanocrystallized [Tricor 145 mg Tablet] 145 mg PO DAILY 06/27/20 Ferrous Sulfate [Feosol 325 mg Tablet] 650 mg PO Q2D 06/27/20 Gabapentin [Neurontin 300 mg Capsule] 600 mg PO Q6 06/27/20 Insulin Glargine,Hum.rec.anlog [Lantus Insulin 100 Unit/1 ml 10 ml] 20 unit SUBCUT QHS 06/27/20 Insulin Regular, Human [Humulin R (Pyxis) Insulin 100 Unit/ml 3Ml] 8 unit SUBCUT AC 06/27/20 Losartan Potassium [Cozaar 25 mg Tablet] 25 mg PO DAILY 06/27/20 Magnesium Oxide [Mag-Ox 400 mg Tablet] 400 mg PO BID 06/27/20 Metoclopramide HCl [Reglan 10 mg Tablet] 10 mg PO ACHS 06/27/20 Multivitamin [Tab-A-Mariela (Multiple Vitamin) Tablet] 1 tab PO DAILY 06/27/20 Nitroglycerin [Nitrostat 0.4 mg (1/150 Gr) Tabs 25/Bottle] 1 tab SL Q5MP PRN 06/27/20 [place]-3 Acid Ethyl Esters [Lovaza 1 gm Capsule] 4 gm PO DAILY 06/27/20 Ondansetron [Zofran Odt 4 mg Tablet] 8 mg PO Q6HP PRN 06/27/20 Oxycodone HCl [Oxy-Ir 5 mg Tablet] 10 mg PO TIDP PRN 06/27/20 Pantoprazole Sodium [Protonix [address] Tablet] 40 mg PO DAILY 06/27/20 Rivaroxaban [Xarelto] 20 mg PO QPM 06/27/20 Silver Sulfadiazine [Silvadene 1% Cream 25 gm] 1 applic TOP DAILY 06/27/20 Spironolactone [Aldactone 25 mg Tablet] 25 mg PO DAILY 06/27/20 Trazodone HCl [Desyrel 50 mg Tablet] 50 mg PO QHS 06/27/20 Allergies/Adverse Reactions: amlodipine Allergy (Severe, Verified 05/31/20 10:42) Hallucinations isosorbide [From Imdur] Allergy (Intermediate, Verified 05/31/20 10:42) RASH zolpidem [From Ambien] Adverse Reaction (Severe, Verified 05/31/20 10:42) Hallucinations Review of Systems Eyes: PRESENT: visual disturbances Ears: PRESENT: hearing changes Cardiovascular: PRESENT: dyspnea on exertion, orthropnea Gastrointestinal: PRESENT: bloating, nausea Neurological: PRESENT: other - Status post a right BKA and left AKA Hematologic/Lymphatic: PRESENT: lymphadenopathy Physical Exam Vital Signs: Temp Pulse Resp BP Pulse Ox 97.2 F 64 18 125/70 95 06/28/20 11:50 06/28/20 11:50 06/28/20 11:50 06/28/20 11:50 06/28/20 11:50 Intake & Output 06/27/20 06/28/20 06/29/20 06:59 06:59 06:59 Intake Total 1572 50 Output Total 800 Balance 772 50 Weight 81.5 kg 72.7 kg General appearance: PRESENT: other - Sitting upright in bed in room 422 Eye exam: PRESENT: other - Disconjugate gaze Mouth exam: PRESENT: dry mucosa Neck exam: PRESENT: full ROM Respiratory exam: PRESENT: crackles Cardiovascular exam: PRESENT: RRR Pulses: PRESENT: normal carotid pulses, normal radial pulses GI/Abdominal exam: PRESENT: other - Distended, edematous. Rectal exam: PRESENT: deferred Extremities exam: PRESENT: other - Small wound right knee; well-healed right below the knee amputation; well-healed left [id number] amputation scar. Neurological exam: PRESENT: oriented to person, oriented to place, oriented to time, oriented to situation Psychiatric exam: PRESENT: appropriate affect Results Laboratory Results: 06/28/20 06:13 06/28/20 06:13 06/27/20 06/27/20 06/27/20 18:25 18:25 18:50 WBC 9.2 RBC 2.48 L Hgb 7.2 L Hct 22.2 L MCV 89 MCH 29.1 MCHC 32.7 RDW 21.5 H Plt Count 194 Seg Neutrophils % Sodium 132.8 L Potassium 4.6 Chloride 96 L Carbon Dioxide 28 Anion Gap 9 BUN 83 H Creatinine 2.40 H Est GFR ( Amer) 26 L Glucose 256 H Calcium 8.6 Magnesium 2.6 H Blood Type O POSITIVE Antibody Screen NEGATIVE 06/28/20 06/28/20 06:13 06:13 WBC 8.6 RBC 3.08 L Hgb 9.0 L Hct 27.1 L MCV 88 MCH 29.3 MCHC 33.4 RDW 19.1 H Plt Count 193 Seg Neutrophils % 68.2 Sodium 134.4 L Potassium 4.3 Chloride 96 L Carbon Dioxide 29 Anion Gap 9 BUN 90 H Creatinine 2.66 H Est GFR ( Amer) 23 L Glucose 117 H Calcium 8.7 Magnesium 2.7 H Blood Type Antibody Screen 06/27/20 06/27/20 06/27/20 02:00 02:00 18:25 Troponin I 0.074 0.221 NT-Pro-B Natriuret Pep 42550 H 06/27/20 22:57 Troponin I 0.183 NT-Pro-B Natriuret Pep Impressions: Chest X-Ray 06/27/20 01:40 IMPRESSION: Moderate central edema pattern. Interval worsening. Assessment & Plan - Diagnosis (1) Chronic anemia Is this a current diagnosis for this admission?: Yes Plan: Impression: Chronic anemia in 49-year-old white female with multiple chronic medical problems, including exacerbation of the congestive heart failure, now status post 2 units packed red cells, getting diuresis. Personal history of peptic ulcer disease, and colonic polyps based on upper and lower endoscopy 2016 in [place] Plan: 1. Will obtain rapid Covid test 2. Keep patient on clear liquids, n.p.o. after midnight 3. We will set patient up for upper and lower endoscopy, tomorrow, [facility], LMAC anesthesia. Risk benefits and alternatives to planned procedure explained to the patient. Expressed understanding agrees to proceed. (2) History of colon polyps Is this a current diagnosis for this admission?: Yes (3) History of peptic ulcer disease Is this a current diagnosis for this admission?: Yes (4) Acute exacerbation of CHF (congestive heart failure) Qualifiers: Heart failure type: unspecified Qualified Code(s): I50.9 - Heart failure, unspecified Is this a current diagnosis for this admission?: Yes (5) Acute kidney injury superimposed on chronic kidney disease Is this a current diagnosis for this admission?: Yes (6) COPD (chronic obstructive pulmonary disease) Qualifiers: - Time Time Spent: 30 to 50 Minutes Smoking Cessation Education: over 10 minutes Medications reviewed and adjusted accordingly: Yes Anticipated discharge: Home
[2020-06-28 12:08] LABS: ABSOLUTE RETICS # 0.114 10^6/uL (0.028-0.122); RETICULOCYTE COUNT (AUTO) 3.72 % (0.66-2.85)
[2020-06-28 12:18] LABS: IRON(TIBC) 61.3 ug/dL (37-170); PHOSPHORUS 5.3 mg/dL (2.5-4.5)
[2020-06-28] MEDS: FUROSEMIDE INJ/PF 100 MG/10 ML SDV IV SCH ×2 (12:29→22:45)
[2020-06-28] MEDS ORDERED: PEG 3350/NA SULF,BICARB,CL/KCL 4000 ML PO ONE (12:30)
[2020-06-28 13:36] LABS: UR PRO/CREAT RATIO RESULT 1.6 mg/mg (0.0-0.2); URINE CREATININE 44.7 mg/dL (15-278); URINE PROTEIN 70.3 mg/dL (<12)
--- NOTE | 2020-06-28 14:19 | RADIOLOGY REPORT (SQ) ---
EXAM DESCRIPTION: U/S RETROPERITON (RENAL/AORTA) IMAGES COMPLETED DATE/TIME: 06/28/2020 1:45 pm REASON FOR STUDY: DANNI/CKD COMPARISON: None. TECHNIQUE: Dynamic and static grayscale images acquired of the kidneys and bladder and recorded on P ACS. Additional selected color Doppler and spectral images recorded. LIMITATIONS: None. FINDINGS: RIGHT KIDNEY: Normal size, 12 cm. Normal echogenicity. No solid or suspicious masses. No h ydronephrosis. No calcifications. LEFT KIDNEY: Normal size, 11 cm. Normal echogenicity. No solid or suspicious masses. No hydronephros is. No calcifications. BLADDER: There is a Sims catheter in the bladder so the bladder is not well filled. No obvious blad mc mass. OTHER FINDINGS: No other significant finding. IMPRESSION: NORMAL RENAL AND BLADDER ULTRASOUND. TECHNICAL DOCUMENTATION: JOB ID: [id number] 2010 [employer]- All Rights Reserved Reading location - IP/workstation name: [email or web address]
--- NOTE | 2020-06-28 16:05 | PDOC CONSULTATION ---
Consultation Consult Date: 06/28/20 Provider Consulted: EMILY MCFADDEN Consult reason:: DANNI/CKD History of Present Illness Admission Date/PCP: 06/27/20 07:09 History of Present Illness: HELDER SERNA is a 49 year old female with history of CHF, hypertension, hyperlipidemia, diabetes mellitus type 2, atrial fibrillationstatus post ablation, CAD status post CABG x3, PAD, CKD stage III/IV who was admitted yesterday because of worsening shortness of breath. Patient states that her shortness of breath started about a week ago for which she went to the emergency room here and then got discharged on a Sunday. 2 days after, last week Sunday she went to [facility] emergency room and she was told she has CHF and was discharged as well. Her shortness of breath persisted and got worse and so she presented in the ED yesterday. She described worsening shortness of breath, orthopnea, fatigue and some lethargy. She also describes some nausea and vomiting previously but not currently. She has cough with whitish to brownish phlegm mostly in the morning. She denies being exposed to anybody with Covid. She denies any fever, chills, chest pains she also has some urinary frequency. She denies any gross hematuria nor foamy urine. Initial evaluation showed a BNP of 11,700. Chest x-ray in the ED showed moderate central edema which shows interval worsening. She was also hypoxic with initial oxygen saturation of 84% at room air. He was admitted with diagnosis of exacerbation of CHF. He was given furosemide initially at 40 mg and another dose of 80 mg last night. Her urine output recorded from last night was 800 mL and on the Sims catheter this morning she had about 250 to 300 mL since this morning. Patient has history of previous DANNI requiring 6 weeks of hemodialysis in [place] in 2016. In September 2019 she also had another episode of DANNI requiring one hemodi alysis treatment and subsequently her kidney function improved. Yesterday she has a BUN of 70, creatinine 1.72 with EGFR of 31. Today she has a BUN of 90, creatinine of 2.66 with EGFR of 19. A week ago on 06/20/2020 she had a BUN of 76, creatinine of 2.33 with EGFR of 22. For the last couple of weeks her creatinine ranged anywhere between 2-2.8. Her urinalysis showed protein of 100, negative blood, moderate leukocyte esterase, WBC of 84 and RBC of 4. This morning when I saw her she seems to be comfortable and is able to talk in complete sentences. Past Medical History Cardiac Medical History: Reports: Atrial Fibrillation, CHF-Systolic, Coronary Artery Disease, DVT, Hyperlipidemia, Hypertension-primary, Myocardial Infarction - x3 per patient, Peripheral Vascular Disease Pulmonary Medical History: Reports: Bronchitis, Chronic Obstructive Pulmonary Disease (COPD), Pneumonia Endocrine Medical History: Reports: Diabetes Mellitus Type 2 Complications of Diabetes: Reports: Nephropathy Renal/ Medical History: Reports: Chronic Kidney Disease Stage III, Proteinuria, Other - Episodes of DANNI in 2016 requiring 6 weeks of home hemodialysis, also 09/2019 GI Medical History: Reports: Gastroesophageal Reflux Disease, Hiatal Hernia Musculoskeltal Medical History: Reports: Arthritis Psychiatric Medical History: Reports: Depression Past Surgical History Past Surgical History: Reports: Cardiac Catheterization, Section - x2, Cholecystectomy, Coronary Artery Bypass Graft - x3, Herniorrhaphy - Ventral hernia, Orthopedic Surgery - Knee surgery, Tubal Ligation, Vascular Surgery - Left iliofemoral bypass, Other - Peripheral nerve stimulator implantation Social History Information Source: Patient, [facility] Records Lives with: Family Smoking Status: Former Smoker Frequency of Alcohol Use: Rare Hx Recreational Drug Use: No Drugs: None Hx Prescription Drug Abuse: No - Advance Directive Resuscitation Status: Full Code Family History Family History: CAD - Paternal grandmother and father, CVA - Father, DM - Father, Hypertension - Father, Malignancy - Breast cancer on her mother, kidney cancer on her maternal aunt Parental Family History Reviewed: Yes Children Family History Reviewed: Yes Sibling(s) Family History Reviewed.: Yes Medication/Allergy Home Medications: Ascorbic Acid [Vitamin C] 500 mg PO DAILY 06/27/20 Aspirin [Lo-Dose Aspirin EC] 81 mg PO DAILY 06/27/20 Atorvastatin Calcium [Lipitor 80 mg Tablet] 80 mg PO QHS 06/27/20 Baclofen [Baclofen 10 mg Tablet] 10 mg PO QIDP PRN 06/27/20 Bumetanide [Bumex 1 mg Tablet] 2 mg PO BID 06/27/20 Buspirone HCl 7.5 mg PO BID 06/27/20 Carvedilol [Coreg 3.125 mg Tablet] 3.125 mg PO Q12 06/27/20 Citalopram Hydrobromide [Citalopram HBr] 40 mg PO DAILY 06/27/20 Ergocalciferol (Vitamin D2) [Drisdol 50,000 Unit (1.25MG) Capsule] 1 cap PO MO@1000 06/27/20 Fenofibrate Nanocrystallized [Tricor 145 mg Tablet] 145 mg PO DAILY 06/27/20 Ferrous Sulfate [Feosol 325 mg Tablet] 650 mg PO Q2D 06/27/20 Gabapentin [Neurontin 300 mg Capsule] 600 mg PO Q6 06/27/20 Insulin Glargine,Hum.rec.anlog [Lantus Insulin 100 Unit/1 ml 10 ml] 20 unit SUBCUT QHS 06/27/20 Insulin Regular, Human [Humulin R (Pyxis) Insulin 100 Unit/ml 3Ml] 8 unit SUBCUT AC 06/27/20 Losartan Potassium [Cozaar 25 mg Tablet] 25 mg PO DAILY 06/27/20 Magnesium Oxide [Mag-Ox 400 mg Tablet] 400 mg PO BID 06/27/20 Metoclopramide HCl [Reglan 10 mg Tablet] 10 mg PO ACHS 06/27/20 Multivitamin [Tab-A-Mariela (Multiple Vitamin) Tablet] 1 tab PO DAILY 06/27/20 Nitroglycerin [Nitrostat 0.4 mg (1/150 Gr) Tabs 25/Bottle] 1 tab SL Q5MP PRN 06/27/20 [place]-3 Acid Ethyl Esters [Lovaza 1 gm Capsule] 4 gm PO DAILY 06/27/20 Ondansetron [Zofran Odt 4 mg Tablet] 8 mg PO Q6HP PRN 06/27/20 Oxycodone HCl [Oxy-Ir 5 mg Tablet] 10 mg PO TIDP PRN 06/27/20 Pantoprazole Sodium [Protonix [address] Tablet] 40 mg PO DAILY 06/27/20 Rivaroxaban [Xarelto] 20 mg PO QPM 06/27/20 Silver Sulfadiazine [Silvadene 1% Cream 25 gm] 1 applic TOP DAILY 06/27/20 Spironolactone [Aldactone 25 mg Tablet] 25 mg PO DAILY 06/27/20 Trazodone HCl [Desyrel 50 mg Tablet] 50 mg PO QHS 06/27/20 Allergies/Adverse Reactions: amlodipine Allergy (Severe, Verified 05/31/20 10:42) Hallucinations isosorbide [From Imdur] Allergy (Intermediate, Verified 05/31/20 10:42) RASH zolpidem [From Ambien] Adverse Reaction (Severe, Verified 05/31/20 10:42) Hallucinations Review of Systems All systems: reviewed and no additional remarkable complaints except as stated Review of Systems: Constitutional: ABSENT: chills, fever(s), headache(s), weight gain, weight loss; admits fatigue Eyes: ABSENT: visual disturbances Ears: ABSENT: hearing changes Cardiovascular: ABSENT: chest pain, palpitations; admits shortness of breath at rest and exertion, orthopnea and edema Respiratory: ABSENT: Dyspnea, hemoptysis; admits cough Gastrointestinal: ABSENT: abdominal pain, constipation, diarrhea, hematemesis, hematochezia, vomiting; admits nausea Genitourinary: ABSENT: dysuria, hematuria Musculoskeletal: ABSENT: joint swelling Integumentary: ABSENT: rash, wounds Neurological: ABSENT: abnormal gait, abnormal speech, confusion, dizziness, focal weakness, numbness, syncope Psychiatric: ABSENT: anxiety, depression Endocrine: ABSENT: cold intolerance, heat intolerance, polydipsia, polyuria Hematologic/Lymphatic: ABSENT: easy bleeding, easy bruising, lymphadenopathy Physical Exam Vital Signs: Temp Pulse Resp BP Pulse Ox 97.5 F 66 18 106/64 96 06/28/20 08:47 06/28/20 08:00 06/28/20 08:00 06/28/20 08:00 06/28/20 08:00 Intake & Output 06/27/20 06/28/20 06/29/20 06:59 06:59 06:59 Intake Total 1572 50 Output Total 800 Balance 772 50 Weight 81.5 kg 72.7 kg Exam: General appearance: No acute distress, cooperative, well-developed, well- nourished Head exam: PRESENT: atraumatic, normocephalic Eye exam: PRESENT: Conjunctiva [place], EOMI, PERRLA. ABSENT: conjunctival injection, scleral icterus Mouth exam: PRESENT: moist, neck supple, tongue midline Neck exam: PRESENT: full ROM. ABSENT: carotid bruit, JVD, lymphadenopathy, thyromegaly Respiratory exam: PRESENT: Diminished to auscultation bilaterally. Positive bibasilar crackles ABSENT: Rhonchi, stridor, wheezes Cardiovascular exam: PRESENT: RRR, +S1, +S2. ABSENT: systolic murmur Pulses: PRESENT: normal radial pulses, normal dorsalis pedis pulses GI/Abdominal exam: PRESENT: normal bowel sounds, soft. Positive subcutaneous edema ABSENT: guarding, mass, tenderness Rectal exam: Deferred Extremities exam: PRESENT: full ROM. Right BKA and left AKA. Grade 2 bilateral extremity edema, pitting in tight skin ABSENT: calf tenderness Musculoskeletal: PRESENT: full ROM. ABSENT: deformity Neurological exam: PRESENT: alert, Awake, Oriented to person, Oriented to place, Oriented to time, reflexes normal, CN II-XII grossly intact. ABSENT: motor sensory deficit Psychiatric exam: PRESENT: appropriate affect, normal mood. ABSENT: homicidal ideation, suicidal ideation Skin exam: PRESENT: intact, dry, warm. ABSENT: rash Results Laboratory Results: 06/28/20 06:13 06/28/20 06:13 06/27/20 06/27/20 06/27/20 18:25 18:25 18:50 WBC 9.2 RBC 2.48 L Hgb 7.2 L Hct 22.2 L MCV 89 MCH 29.1 MCHC 32.7 RDW 21.5 H Plt Count 194 Seg Neutrophils % Sodium 132.8 L Potassium 4.6 Chloride 96 L Carbon Dioxide 28 Anion Gap 9 BUN 83 H Creatinine 2.40 H Est GFR ( Amer) 26 L Glucose 256 H Calcium 8.6 Magnesium 2.6 H Blood Type O POSITIVE Antibody Screen NEGATIVE 06/28/20 06/28/20 06:13 06:13 WBC 8.6 RBC 3.08 L Hgb 9.0 L Hct 27.1 L MCV 88 MCH 29.3 MCHC 33.4 RDW 19.1 H Plt Count 193 Seg Neutrophils % 68.2 Sodium 134.4 L Potassium 4.3 Chloride 96 L Carbon Dioxide 29 Anion Gap 9 BUN 90 H Creatinine 2.66 H Est GFR ( Amer) 23 L Glucose 117 H Calcium 8.7 Magnesium 2.7 H Blood Type Antibody Screen 06/27/20 06/27/20 06/27/20 02:00 02:00 18:25 Troponin I 0.074 0.221 NT-Pro-B Natriuret Pep [id number] H 06/27/20 22:57 Troponin I 0.183 NT-Pro-B Natriuret Pep Impressions: Chest X-Ray 06/27/20 01:40 IMPRESSION: Moderate central edema pattern. Interval worsening. Assessment & Plan - Diagnosis (1) Acute kidney injury superimposed on chronic kidney disease Is this a current diagnosis for this admission?: Yes Plan: Currently nonoliguric. Acute exacerbation of the patient's kidney function is most likely secondary to prerenal azotemia due to a CHF. Her baseline creatinine is most likely around 2+ and not 1.72 from yesterday. She has baseline proteinuria previously consistent with underlying diabetic nephropathy. No significant microhematuria. I would continue treating her acute CHF with IV diuretics, resume furosemide 80 mg IV every 12 hours. Strict I/O and fluid restriction with low-sodium diet. Maximize cardiac management per oxyhydrogen welder, Dr. Luis. No need of any acute renal replacement therapy at this time. I will check kidney ultrasound, phosphorus and PTH. We will check urine protein to creatinine ratio. Continue to monitor kidney function and electrolytes. Avoid nephrotoxic medications. Adjust medications per kidney function. (2) Acute exacerbation of CHF (congestive heart failure) Qualifiers: Heart failure type: unspecified Qualified Code(s): I50.9 - Heart failure, unspecified Is this a current diagnosis for this admission?: Yes Plan: Resume diuresis. Cardiology on board. (3) Acute respiratory failure with hypoxia Is this a current diagnosis for this admission?: Yes Plan: Due to CHF exacerbation. (4) Chronic anemia Is this a current diagnosis for this admission?: Yes Plan: We will check iron panel and occult blood. Patient was transfused 2 units of packed RBC 4 weeks ago. (5) Acute urinary tract infection Is this a current diagnosis for this admission?: Yes Plan: On ceftriaxone. Urine culture showed gram-positive cocci in chains. (6) Hypermagnesemia Is this a current diagnosis for this admission?: Yes Plan: Due to DANNI/CKD. (7) Hyponatremia Is this a current diagnosis for this admission?: Yes Plan: Due to hypervolemic state. (8) Diabetes mellitus type 2 in obese Is this a current diagnosis for this admission?: Yes Plan: Uncontrolled. Defer to hospitalist. (9) Hypertension Qualifiers: Hypertension type: essential hypertension Qualified Code(s): I10 - Essential (primary) hypertension Is this a current diagnosis for this admission?: Yes Plan: Relatively low but acceptable. (10) Elevated troponin Is this a current diagnosis for this admission?: Yes Plan: Per cardiology. (11) Peripheral arterial disease Is this a current diagnosis for this admission?: Yes Plan: Status post right BKA and left AKA - Notes Notes: Discussed with GIRISH Lopez. Thank you very much for this consultation.
--- NOTE | 2020-06-28 19:11 | XCELERA REPORT ---
[address] [address] Transthoracic Echocardiogram Report Name: HELDER SERNA Age: 49 yrs Gender: Female : 1970 Patient Status: Inpatient Patient Location: [address] [place] [address] Study Date: 06/28/2020 03:21 PM Height: 48 in Weight: 160 lb BSA: 1.4 m2 Procedure: A complete two-dimensional transthoracic echocardiogram was performed (2D, M-mode, spectral and color flow Doppler). Study Quality: Technically suboptimal. Reason For Study: Heart failure Ordering Physician: CATRINA LUIS Performed By: Soniya Baires Interpretation Summary The left ventricle is grossly normal size. Left ventricular systolic function is mildly reduced. Due to the poor quality of the echocardiogram, an assessment of left ventricular ejection fraction cannot be made. Best estimate is 40%. Doppler measurements suggest reversible restrictive left ventricular relaxation, which is associated with grade III/IV or moderate diastolic dysfunction. Regional wall motion abnormalities cannot be excluded due to limited visualization. Mildly reduced RV systolic function. Trace to mild MR, mild to moderate TR, mild PI. Mild to moderate pulmonary hypertension with pressures estimated between 45 and 50 mmHg. When compared to a prior report dated MAY 11, there is no significant change. MMode/2D Measurements & Calculations RVDd: 2.4 cm LVIDd: 5.3 cm FS: 20.3 % Ao root diam: 2.3 cm IVSd: 0.96 cm LVIDs: 4.3 cm EDV(Teich): 138.1 ml Ao root area: 4.3 cm2 LVPWd: 0.97 cm ESV(Teich): 81.3 ml EF(Teich): 41.1 % Doppler Measurements & Calculations MV E max juan: MV dec slope: Ao V2 max: LV V1 max P.9 cm/sec 686.9 cm/sec2 148.0 cm/sec 3.0 mmHg MV A max juan: MV dec time: 0.18 secAo max PG: LV V1 mean P.4 cm/sec 8.8 mmHg 1.8 mmHg MV E/A: 2.2 Ao V2 mean: LV V1 max: 106.1 cm/sec 86.3 cm/sec Ao mean PG: LV V1 mean: 5.0 mmHg 63.6 cm/sec Ao V2 VTI: 31.1 cm LV V1 VTI: 20.6 cm PA V2 max: PI end-d juan: TR max juan: 68.1 cm/sec 100.2 cm/sec 313.3 cm/sec PA max P.9 mmHg TR max P.7 mmHg Left Ventricle The left ventricle is grossly normal size. Left ventricular systolic function is mildly reduced. Due to the poor quality of the echocardiogram, an assessment of left ventricular ejection fraction cannot be made. Best estimate is 40%. Doppler measurements suggest reversible restrictive left ventricular relaxation, which is associated with grade III/IV or moderate diastolic dysfunction. Regional wall motion abnormalities cannot be excluded due to limited visualization. Right Ventricle The right ventricle is grossly normal size. The right ventricular systolic function is mildly reduced. Atria The right atrium is normal. The left atrial size is normal. Interarterial septum not well visualized and not well dopplered. Cannot comment on ASD/PFO presence. Mitral Valve Calcified mitral apparatus. There is a trace to mild amount of mitral regurgitation. Aortic Valve The aortic valve is not well visualized secondary to technical limitations. There is no aortic valve stenosis. No aortic regurgitation is present. Tricuspid Valve The tricuspid valve is not well visualized secondary to technical limitations. There is a moderate amount of tricuspid regurgitation. There is mild to moderate pulmonary hypertension by echo. Best estimated right ventricular systolic pressure is elevated at 40-50mmHg. Pulmonic Valve The pulmonic valve is not well visualized. There is a mild amount of pulmonic regurgitation. Effusions There is no pericardial effusion. There is no pleural effusion. : CATRINA LUIS Antonio
--- NOTE | 2020-06-28 19:20 | PDOC PROGRESS REPORT ---
Subjective Date:: 06/28/20 Subjective:: Patient seen on morning rounds. She is sitting upright in bed. She received 2 units packed red blood cells last night. She is satting at 94% on room air and she states that she is feeling better though continues to have some shortness of breath. Denies hematemesis, dark stools, bright red blood per rectum. Provides me with no further complaints today. No concerns per nursing. Reason For Visit: ACUTE HYPOXIC RESPIRATORY FAILURE, ACUTE DECOMPENS Physical Exam Vital Signs: Temp Pulse Resp BP Pulse Ox 97.4 F 60 18 125/70 94 06/28/20 17:06 06/28/20 17:06 06/28/20 17:06 06/28/20 17:06 06/28/20 17:06 Intake & Output 06/27/20 06/28/20 06/29/20 06:59 06:59 06:59 Intake Total 1572 1090 Output Total 800 700 Balance 772 390 Weight 81.5 kg 72.7 kg General appearance: PRESENT: no acute distress, cooperative, obese, other - Slight conjunctival impairment noted. Head exam: PRESENT: atraumatic, normocephalic Eye exam: PRESENT: conjunctiva pale, EOMI, PERRLA. ABSENT: scleral icterus Mouth exam: PRESENT: dry mucosa, neck supple, tongue midline Teeth exam: PRESENT: poor dentation Neck exam: PRESENT: full ROM. ABSENT: lymphadenopathy, tenderness, thyromegaly Respiratory exam: PRESENT: clear to auscultation amaya - Lung clear bilaterally, symmetrical, unlabored. ABSENT: rales, rhonchi, tachypnea, wheezes Cardiovascular exam: PRESENT: RRR, +S1, +S2. ABSENT: diastolic murmur, systolic murmur, tachycardia Pulses: PRESENT: normal radial pulses GI/Abdominal exam: PRESENT: distended, normal bowel sounds, soft. ABSENT: tenderness Extremities exam: PRESENT: other - Has right BKA and left AKA. Musculoskeletal exam: ABSENT: deformity Neurological exam: PRESENT: alert, awake, oriented to person, oriented to place, oriented to time Psychiatric exam: PRESENT: appropriate affect, normal mood Skin exam: PRESENT: dry, intact, warm. ABSENT: rash Results Laboratory Results: 06/28/20 06:13 06/28/20 06:13 12/06/20 12/06/20 12/07/20 18:25 18:50 06:12 WBC RBC Hgb Hct MCV MCH MCHC RDW Plt Count Seg Neutrophils % Retic Count (auto) Sodium 132.8 L Potassium 4.6 Chloride 96 L Carbon Dioxide 28 Anion Gap 9 BUN 83 H Creatinine 2.40 H Est GFR ( Amer) 26 L Glucose 256 H Calcium 8.6 Phosphorus 5.3 H Magnesium 2.6 H Iron 61.3 TIBC 393 % Saturation 16 Ferritin 401.00 H Vitamin B12 363.0 Folate 12.50 Stool Occult Blood Blood Type O POSITIVE Antibody Screen NEGATIVE 06/28/20 06/28/20 06/28/20 06:12 06:13 06:13 WBC 8.6 RBC 3.08 L Hgb 9.0 L Hct 27.1 L MCV 88 MCH 29.3 MCHC 33.4 RDW 19.1 H Plt Count 193 Seg Neutrophils % 68.2 Retic Count (auto) 3.72 H Sodium 134.4 L Potassium 4.3 Chloride 96 L Carbon Dioxide 29 Anion Gap 9 BUN 90 H Creatinine 2.66 H Est GFR ( Amer) 23 L Glucose 117 H Calcium 8.7 Phosphorus Magnesium 2.7 H Iron TIBC % Saturation Ferritin Vitamin B12 Folate Stool Occult Blood Blood Type Antibody Screen 06/28/20 16:50 WBC RBC Hgb Hct MCV MCH MCHC RDW Plt Count Seg Neutrophils % Retic Count (auto) Sodium Potassium Chloride Carbon Dioxide Anion Gap BUN Creatinine Est GFR ( Amer) Glucose Calcium Phosphorus Magnesium Iron TIBC % Saturation Ferritin Vitamin B12 Folate Stool Occult Blood NEGATIVE Blood Type Antibody Screen 06/27/20 06/27/20 06/27/20 02:00 02:00 18:25 Troponin I 0.074 0.221 NT-Pro-B Natriuret Pep 97250 H 06/27/20 22:57 Troponin I 0.183 NT-Pro-B Natriuret Pep Impressions: Chest X-Ray 06/27/20 01:40 IMPRESSION: Moderate central edema pattern. Interval worsening. Renal Ultrasound 06/28/20 00:00 IMPRESSION: NORMAL RENAL AND BLADDER ULTRASOUND. Assessment and Plan - Diagnosis (1) Acute respiratory failure with hypoxia Is this a current diagnosis for this admission?: Yes Plan: Presented with shortness of breath, improving. On arrival oxygen saturation was 84% on room air, 94% on room air today. 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 Supply Person [facility] [place] - Next appt scheduled for 07/06/2020 Cardiology consulted, agreed to see patient, recommendations as follows: - Cnt Coreg at current dose - Echo pending ( EF <50% add Entresto) - Restrict fluid < 1500 cc daily, low sodium, strict I&O, daily weights (3) Elevated troponin Is this a current diagnosis for this admission?: Yes Plan: Troponin of 0.2, trended downward. - Without chest pain - EKG without acute findings Cardiology consulted, agreed to see patient, recommendations as follows: - Acute CHF vs primary ischemic event - Cnt ASA and Beta julius - Echo pending - Cnt telemetry. - Get outside records. (4) Acute urinary tract infection Is this a current diagnosis for this admission?: Yes Plan: UA shows moderate leukocytes trace and many WBCs per high-power field - Ceftriaxone day 2. - UC + Gram positive cocci in chains (5) Anemia Qualifiers: Anemia type: unspecified type Qualified Code(s): D64.9 - Anemia, unspecified Is this a current diagnosis for this admission?: Yes Plan: Hgb 7.2, received 2 units packed red blood cells follow-up Hgb 9.0. - Has required 4 units transfusion in the past 6 weeks. - Hx: Upper and lower endoscopy 2016 peptic ulcer disease and polyps. - Surgery team consulted, evaluated pt plan for upper/lower endoscopy tomorrow. - Clear liquids today, bowel prep, n.p.o after midnight (6) Acute kidney injury superimposed on chronic kidney disease Is this a current diagnosis for this admission?: Yes Plan: Hx of previous DANNI requiring 6 weeks of hemodialysis in 2015. Similar episode September 2019 required one hemodialysis treatment. -Baseline creatinine between 2-2.8 - Nonoliguric - DANNI likely prerenal in cause CHF Nephrology consulted evaluated patient, recommendations are as follows" - Cnt tx CHF with IV diuretics - No need for acute renal replacement at this time - Renal US pending - Phosphorus, PTH, urine protein:creatinine pending. - Avoid nephrotoxic meds (7) CAD (coronary artery disease), chitina coronary artery Qualifiers: Is this a current diagnosis for this admission?: Yes Plan: Has a history of CABG - Currently is chest pain-free - Elevated troponin likely due to non-STEMI type II - Cardiology on board note reviewed appreciate recommendations. - Patient reportedly with negative stress test recently. Request outside records. (8) Diabetes mellitus type 2 in obese Is this a current diagnosis for this admission?: Yes Plan: Presented with hyperglycemia with blood sugar ranging from 120-270s. - Cnt Lantus 15 units nightly, regular insulin 5 units AC - Sliding scale insulin, Accu-Chek and hypoglycemia protocol - Due to recent transfusion, hemA1c unreliable (9) History of atrial fibrillation Is this a current diagnosis for this admission?: Yes Plan: Status post ablation - Currently is in sinus rhythm with heart rates in the 80s - [id number] score 5, has bled score of 3 - Patient had severe anemia requiring 4 u PRBCs in past 6 weeks - Hold Xarelto for now Cardiology on board. Recommendations appreciated. (10) Hypertension Qualifiers: Hypertension type: essential hypertension Qualified Code(s): I10 - Essential (primary) hypertension Is this a current diagnosis for this admission?: Yes Plan: Continue home medications. - Time Time Spent with patient: 35 or more minutes Medications reviewed and adjusted accordingly: Yes Anticipated Discharge Disposition: Home, Self Care Anticipated Discharge Timeframe: within 72 hours
[2020-06-28] MEDS: INSULIN GLARGINE,HUM.REC.ANLOG 1,000 UNIT/10 ML VIAL SUBCUT SCH (22:46)
[2020-06-28] MEDS: ATORVASTATIN CALCIUM 40 MG TABLET PO SCH (22:46)
[2020-06-29 05:01] LABS: ABSOLUTE EOSINOPHILS # (AUTO) 0.2 10^3/uL (0.0-0.6); ABSOLUTE MONOCYTES (AUTO) 0.4 10^3/uL (0.1-1.4); ABSOLUTE NEUT (AUTO) 4.4 10^3/uL (1.7-8.2); BASOPHILS % (AUTO) 0.7 % (0-2); EOSINOPHILS % (AUTO) 4.1 % (0-6); HEMOGLOBIN 10.4 g/dL (12.0-15.5); LYMPHOCYTES % (AUTO) 16.5 % (13-45); MEAN CORPUSCULAR HEMOGLOBIN 28.9 pg (27.0-33.4); MEAN CORPUSCULAR HGB CONC 33.4 g/dL (32.0-36.0); MEAN CORPUSCULAR VOLUME 86 fl (80-97); MONOCYTES % (AUTO) 6.2 % (3-13); PLATELET COUNT 192 10^3/uL (150-450); RED BLOOD COUNT 3.59 10^6/uL (3.72-5.28); RED CELL DISTRIBUTION WIDTH 19.6 % (11.5-14.0); SEGMENTED NEUTROPHILS % (AUTO) 72.5 % (42-78); TOTAL CELLS COUNTED % (AUTO) 100 %; WHITE BLOOD COUNT 6.1 10^3/uL (4.0-10.5)
[2020-06-29 05:18] LABS: ANION GAP 11 (5-19); BLOOD UREA NITROGEN 79 mg/dL (7-20); CALCIUM 8.9 mg/dL (8.4-10.2); CARBON DIOXIDE 32 mmol/L (22-30); CHLORIDE 97 mmol/L (98-107); GLUCOSE 103 mg/dL (75-110); POTASSIUM 3.7 mmol/L (3.6-5.0)
[2020-06-29] MEDS: PANTOPRAZOLE SODIUM 40 MG TABLET.DR PO SCH (05:42)
[2020-06-29] MEDS ORDERED: EPHEDRINE SULFATE INJ 50 MG/1 ML AMPULE ONE (06:53)
[2020-06-29] MEDS ORDERED: PROPOFOL INJ 200 MG/20 ML VIAL IV ONE (06:54)
[2020-06-29] MEDS ORDERED: LIDOCAINE 2% INJ (20 MG/ML) 20 ML MDV ONE (06:54)
[2020-06-29] MEDS: INSULIN REG, HUMAN 100 UNIT/ML 3 ML VIAL (PYX) SUBCUT SCH ×5 (07:09→21:37)
[2020-06-29] MEDS ORDERED: DIPHENHYDRAMINE HCL 50 MG/ML VIAL IV PRN (08:22)
[2020-06-29] MEDS ORDERED: PROMETHAZINE HCL INJ 25 MG/1 ML VIAL IV PRN ×2 (08:22)
[2020-06-29] MEDS ORDERED: FENTANYL CITRATE INJ/PF 100 MCG/2 ML AMPUL IV PRN ×3 (08:22)
--- NOTE | 2020-06-29 08:44 | Operative Report ---
Operative Report DATE OF SURGERY: 06/29/20 PREOPERATIVE DIAGNOSIS: 1. Anemia. 2. History of peptic ulcer disease. 3. Personal history of colon polyps POSTOPERATIVE DIAGNOSIS: 1. Mild gastritis. 2. No obvious source of gastrointestinal bleeding OPERATION: 1. Esophagogastroduodenoscopy with photodocumentation. 2. A total colonoscopy to cecum with limited visualization of the cecum SURGEON: KIMANI CALVERT ANESTHESIA: LMAC TISSUE REMOVED OR ALTERED: None COMPLICATIONS: None INTRAOPERATIVE FINDINGS: See below PROCEDURE: The patient was taken the preop holding her to the main operating room where LMAC anesthesia was induced. She is placed in the semirecumbent left lateral cubitus position. Surgical plan and surgical timeout were conducted. Oral mouthpiece was inserted. The flexible upper endoscope was advanced to the oropharynx through the esophagus, stomach and into the first and second portion of the duodenum. This is well tolerated by the patient. There was no evidence of retained gastric contents, bleeding, ulcer stricture or polyp. Excellent visualization of the pylorus, and distal antrum obtained. Photos retained for the record. Was mild gastritis, no biopsy indicated. Scope was retroflexed in the stomach. Small hiatal hernia visualized The scope was straightened out withdrawn to the esophagus. No significant esophageal pathology was seen. Scope was withdrawn with the patient's oropharynx. She tolerated the procedure well Equipment was switched out, and we proceeded with colonoscopy. The patient was placed in the left lateral decubitus position with knees to chest. A perianal examination was performed. There was no visible or palpable anorectal pathology. Sphincter tone was felt to be normal. The flexible adult colonoscope was advanced through the anal rectal canal, all the way to the cecum. Unfortunately there is a significant amount intestinal ma tter in the right colon and cecum. We irrigated and aspirated most of this out of the way, but I never got a complete visualization of the ileocecal valve. The colonoscope was withdrawn slowly and methodically checked and the mucosa carefully. There was no evidence of tumor, stricture, bleeding or polyp. There was no evidence of diverticuloses. The scope was slowly withdrawn through the anal rectal canal. Complete visualization of the rectum was achieved with photodocumentation. The scope was withdrawn to the patient's anus. The patient tolerated the procedure well and was taken to the recovery area in stable condition. Per surveillance guidelines, patient will be an appropriate candidate for follow-up colonoscopy in [5-8] years.
--- NOTE | 2020-06-29 09:16 | PDOC PROGRESS REPORT ---
Subjective Date:: 06/29/20 Subjective:: HELDER SERNA is a 49 year old female with history of coronary artery disease status post myocardial infarction in the past and status post three-vessel CABG in 2009, peripheral vascular disease status post right below the knee amputation and left [id number] amputation, heart failure with reduced ejection fraction, ischemic cardiomyopathy, hypertension, hyperlipidemia, chronic kidney disease, type 2 diabetes, ex-smoker who quit in March 2010 who is consulted to our service for further evaluation and management of heart failure. The patient had been seen in our emergency room at least 3 times since May 2020 for different complaints but most notably for shortness of breath. At some point she was diagnosed with pneumonia. This morning she states that she began with worsening of shortness of breath as well as edema along with some PND approximately 2 weeks ago. Her symptoms progressively worsened until she sought medical attention in our emergency room room yesterday and was admitted. She was noted to have a significant anemia and was given a blood transfusion. This morning she feels slightly better however continues to have some shortness of breath. She is followed by a real estate photographer at [facility] in [place], [place] who ordered an outpatient cardiac rhythm monitoring device for complaints of palpitations and shortness of breath which the patient is still wearing. Of note, she has an appointment with the real estate photographer on 06 July 2020. 06/29/2020: The patient had uneventful night and just underwent EGD/colonoscopy without immediate complications. She is fully awake in her bed and without any cardiac complaints. I did received and reviewed records from [facility] which revealed that the patient has a history of atrial fibrillation status post ablation and had been anticoagulated with apixaban 5 mg twice daily, apparently she also had a CVA. She had a negative nuclear stress test at [facility] in September 2018 which was negative for ischemia. Her fluid balance is -1038 mL. Physical exam on 06/29/2020: GENERAL: Pleasant and conversational. Oriented x3 with normal mood. Not in acute distress. Well groomed and well developed. Sitting up in bed, no acute complaints. HEENT: Normocephalic, atraumatic. Pupils equal. Sclerae anicteric. Oropharynx moist. NECK: No JVD. No carotid bruits. LUNGS: Mild crackles at both bases. Normal respiratory effort without the use of accessory muscles or intercostal retractions. CARDIOVASCULAR: Regular rate and rhythm, normal S1 and S2 without murmurs, rubs, or gallops. PMI not displaced. ABDOMEN: No masses or tenderness to palpation. No bruit. No splenomegaly or hepatomegaly. No abdominal aorta bruit noted. EXTREMITIES: Below the knee amputation on the right, [id number] amputation on the left. SKIN: No lesions or rashes. MUSCULOSKELETAL: No chest tenderness to palpation. NEUROLOGIC: Nonfocal. Reason For Visit: ACUTE HYPOXIC RESPIRATORY FAILURE, ACUTE DECOMPENS Physical Exam Vital Signs: Temp Pulse Resp BP Pulse Ox 97.3 F 65 16 128/69 H 95 06/29/20 06:27 06/29/20 06:27 06/29/20 06:27 06/29/20 06:27 06/29/20 06:27 Intake & Output 06/27/20 06/28/20 06/29/20 06:59 06:59 06:59 Intake Total 1572 2690 Output Total 800 4100 Balance 772 -1410 Weight 81.5 kg 72.7 kg 72.7 kg Results Laboratory Results: 06/29/20 04:50 06/29/20 04:50 06/28/20 06/28/20 06/28/20 06:12 06:12 06:13 WBC RBC Hgb Hct MCV MCH MCHC RDW Plt Count Seg Neutrophils % Retic Count (auto) 3.72 H Sodium 134.4 L Potassium 4.3 Chloride 96 L Carbon Dioxide 29 Anion Gap 9 BUN 90 H Creatinine 2.66 H Est GFR ( Amer) 23 L Glucose 117 H Calcium 8.7 Phosphorus 5.3 H Magnesium 2.7 H Iron 61.3 TIBC 393 % Saturation 16 Ferritin 401.00 H Vitamin B12 363.0 Folate 12.50 PTH Intact Stool Occult Blood 06/28/20 06/29/20 06/29/20 16:50 04:50 04:50 WBC 6.1 RBC 3.59 L Hgb 10.4 L Hct 31.0 L MCV 86 MCH 28.9 MCHC 33.4 RDW 19.6 H Plt Count 192 Seg Neutrophils % 72.5 Retic Count (auto) Sodium Potassium Chloride Carbon Dioxide Anion Gap BUN Creatinine Est GFR ( Amer) Glucose Calcium Phosphorus Magnesium Iron TIBC % Saturation Ferritin Vitamin B12 Folate PTH Intact 152.6 H Stool Occult Blood NEGATIVE 06/29/20 04:50 WBC RBC Hgb Hct MCV MCH MCHC RDW Plt Count Seg Neutrophils % Retic Count (auto) Sodium 139.6 Potassium 3.7 Chloride 97 L Carbon Dioxide 32 H Anion Gap 11 BUN 79 H Creatinine 1.86 H Est GFR ( Amer) 35 L Glucose 103 Calcium 8.9 Phosphorus Magnesium 2.3 Iron TIBC % Saturation Ferritin Vitamin B12 Folate PTH Intact Stool Occult Blood 06/27/20 06/27/20 06/27/20 02:00 02:00 18:25 Troponin I 0.074 0.221 NT-Pro-B Natriuret Pep 29622 H 06/27/20 22:57 Troponin I 0.183 NT-Pro-B Natriuret Pep Impressions: Chest X-Ray 06/27/20 01:40 IMPRESSION: Moderate central edema pattern. Interval worsening. Renal Ultrasound 06/28/20 00:00 IMPRESSION: NORMAL RENAL AND BLADDER ULTRASOUND. 06/29/20 04:50 06/29/20 04:50 MCV 86 fl (80-97) 06/29/20 04:50 MCH 28.9 pg (27.0-33.4) 06/29/20 04:50 MCHC 33.4 g/dL (32.0-36.0) 06/29/20 04:50 RDW 19.6 % (11.5-14.0) H 06/29/20 04:50 Seg Neutrophils % 72.5 % (42-78) 06/29/20 04:50 Retic Count (auto) 3.72 % (0.66-2.85) H 06/28/20 06:12 VBG pH 7.39 (7.30-7.42) 06/27/20 10:32 VBG pCO2 46.4 mmHg (35-63) 06/27/20 10:32 VBG HCO3 27.6 mmol/L (20-32) 06/27/20 10:32 VBG Base Excess 2.4 mmol/L 06/27/20 10:32 Chloride 97 mmol/L (98-107) L 06/29/20 04:50 Carbon Dioxide 32 mmol/L (22-30) H 06/29/20 04:50 Anion Gap 11 (5-19) 06/29/20 04:50 Est GFR ( Amer) 35 (>60) L 06/29/20 04:50 Glucose 103 mg/dL (75-110) 06/29/20 04:50 Calcium 8.9 mg/dL (8.4-10.2) 06/29/20 04:50 Phosphorus 5.3 mg/dL (2.5-4.5) H 06/28/20 06:12 Magnesium 2.3 mg/dL (1.6-2.3) 06/29/20 04:50 Iron 61.3 ug/dL (37-170) 06/28/20 06:12 TIBC 393 ug/dL (250-450) 06/28/20 06:12 % Saturation 16 % 06/28/20 06:12 Ferritin 401.00 ng/mL (11.1-264.0) H 06/28/20 06:12 Total Bilirubin 0.7 mg/dL (0.2-1.3) 06/27/20 02:00 AST 24 U/L (14-36) 06/27/20 02:00 Alkaline Phosphatase 54 U/L (38-126) 06/27/20 02:00 Total Protein 7.1 g/dL (6.3-8.2) 06/27/20 02:00 Albumin 3.8 g/dL (3.5-5.0) 06/27/20 02:00 Vitamin B12 363.0 pg/mL (239-931) 06/28/20 06:12 Folate 12.50 ng/mL (>2.76) 06/28/20 06:12 PTH Intact 152.6 pg/mL (10.0-65.0) H 06/29/20 04:50 Urine Color YELLOW 06/27/20 03:40 Urine Appearance SLIGHTLY-CLOUDY 06/27/20 03:40 Urine pH 6.0 (5.0-9.0) 06/27/20 03:40 Ur Specific [place] 1.015 06/27/20 03:40 Urine Protein 100 mg/dL (NEGATIVE) H 06/27/20 03:40 Urine Glucose (UA) NEGATIVE mg/dL (NEGATIVE) 06/27/20 03:40 Urine Ketones NEGATIVE mg/dL (NEGATIVE) 06/27/20 03:40 Urine Blood NEGATIVE (NEGATIVE) 06/27/20 03:40 Urine Nitrite NEGATIVE (NEGATIVE) 06/27/20 03:40 Ur Leukocyte Esterase MODERATE (NEGATIVE) H 06/27/20 03:40 Urine WBC (Auto) 84 /HPF 06/27/20 03:40 Urine RBC (Auto) 4 /HPF 06/27/20 03:40 Stool Occult Blood NEGATIVE (NEGATIVE) 06/28/20 16:50 Blood Type O POSITIVE 06/27/20 18:50 Antibody Screen NEGATIVE 06/27/20 18:50 06/27/20 06/27/20 06/27/20 02:00 02:00 18:25 Troponin I 0.074 0.221 NT-Pro-B Natriuret Pep 66380 H 06/27/20 22:57 Troponin I 0.183 NT-Pro-B Natriuret Pep Current Medication List Generic Name Dose Route Start Last Admin Trade Name Freq PRN Reason Stop Dose Admin Acetaminophen 650 mg 06/28/20 11:30 Acetaminophen 325 Mg Tablet PO 07/27/20 05:42 Q6HP PRN FEVER >101 Aspirin 81 mg 06/27/20 10:00 06/28/20 09:22 Aspirin 81 Mg Tablet, Chewable PO 07/27/20 09:59 81 mg DAILY GLADIS Administration Atorvastatin Calcium 40 mg 06/27/20 22:00 06/28/20 22:46 Atorvastatin Calcium 40 Mg Tablet PO 07/27/20 21:59 40 mg QHS GLADIS Administration Carvedilol 3.125 mg 06/27/20 10:00 06/28/20 22:46 Carvedilol 3.125 Mg Tablet PO 07/27/20 09:59 3.125 mg Q12 GLADIS Administration Citalopram Hydrobromide 40 mg 06/27/20 10:00 06/28/20 09:23 Citalopram Hydrobromide 20 Mg Tablet PO 07/27/20 09:59 40 mg DAILY GLADIS Administration Dextrose 12.5 gm 06/27/20 05:51 Dextrose 50%-Water 25 Gm/50 Ml Disp.Syrin IV 07/27/20 05:50 PRN PRN FOR BG 50-69 IN ALERT PATIENT Protocol Dextrose 25 gm 06/27/20 05:51 Dextrose 50%-Water 25 Gm/50 Ml Disp.Syrin IV 07/27/20 05:50 PRN PRN PER PROTOCOL Protocol Ferrous Sulfate 325 mg 06/27/20 10:00 06/28/20 09:23 Ferrous Sulfate 325 Mg Tablet PO 07/27/20 09:59 325 mg DAILY GLADIS Administration Furosemide 80 mg 06/28/20 12:00 06/28/20 22:45 Furosemide Inj/Pf 100 Mg/10 Ml Sdv IV 07/28/20 11:59 80 mg Q12 GLADIS Administration Glucagon 1 mg 06/27/20 05:51 Glucagon,Human Recomb 1 Mg Inj IM 07/27/20 05:50 PRN PRN Evaluate for BG < 70 Protocol Glucose 15 gm 06/27/20 05:51 Dextrose 40% Gel 15 Gm Tube PO 07/27/20 05:50 PRN PRN FOR BG 50-69 IN ALERT PATIENT Protocol Glucose 30 gm 06/27/20 05:51 Dextrose 40% Gel 15 Gm Tube PO 07/27/20 05:50 PRN PRN FOR BG < 50 IN ALERT PATIENT Protocol Ceftriaxone Sodium/Dextrose 1 gm in 50 mls @ 100 mls/hr 06/27/20 06:30 1202/08 10:35 Rocephin Rtu 1 Gm/D5w 50 Ml Premix IV 07/04/20 06:29 Infused DAILY GLADIS Infusion Insulin Glargine 15 unit 06/27/20 22:00 06/28/20 22:46 Insulin Glargine,Hum.Rec.Anlog 1,000 Unit/10 Ml Vial SUBCUT 07/27/20 21:59 15 unit QHS [facility] Administration Insulin Human Regular 0 - 12 unit 06/27/20 08:00 06/28/20 22:41 Insulin Reg, Human 100 Unit/Ml 3 Ml Vial (Pyx) SUBCUT 07/27/20 07:59 Not Given ACHS [facility] Protocol Insulin Human Regular 5 unit 06/27/20 08:00 06/28/20 07:56 Insulin Reg, Human 100 Unit/Ml 3 Ml Vial (Pyx) SUBCUT 07/27/20 07:59 5 unit ACBRKFST GLADIS Administration Ondansetron HCl 4 mg 06/27/20 05:43 06/27/20 16:06 Ondansetron Hcl Inj/Pf 4 Mg/2 Ml Sdv IV 07/27/20 05:42 4 mg Q8HP PRN Administration FOR NAUSEA/VOMITING Oxycodone HCl 5 mg 06/27/20 21:13 06/28/20 08:09 Oxycodone Hcl Ir 5 Mg Tablet PO 07/04/20 21:12 5 mg Q8HP PRN Administration PAIN Pantoprazole Sodium 40 mg 06/27/20 06:00 06/29/20 05:42 Pantoprazole Sodium 40 Mg Tablet. PO 07/27/20 05:59 Not Given Q6AM GLADIS Discontinued Medications Generic Name Dose Route Start Last Admin Trade Name Freq PRN Reason Stop Dose Admin Acetaminophen 650 mg 06/27/20 05:43 06/27/20 17:54 Acetaminophen 325 Mg Tablet PO 07/27/20 05:42 650 mg Q4HP PRN Administration FEVER >101 Furosemide 20 mg 06/27/20 03:50 06/27/20 04:01 Furosemide Inj/Pf 20 Mg/2 Ml Sdv IV 06/27/20 03:51 Not Given NOW ONE Furosemide 40 mg 06/27/20 03:54 06/27/20 04:11 Furosemide Inj/Pf 20 Mg/2 Ml Sdv IV 06/27/20 03:55 40 mg NOW ONE Administration Furosemide 40 mg 06/27/20 10:00 Furosemide Inj/Pf 40 Mg/4 Ml Sdv IV 07/27/20 09:59 Q12 GLADIS Furosemide 80 mg 06/27/20 10:00 06/27/20 23:36 Furosemide Inj/Pf 100 Mg/10 Ml Sdv IV 07/27/20 09:59 80 mg Q12 GLADIS Administration Sodium Chloride 250 mls @ 30 mls/hr 06/27/20 18:40 Nacl 0.9% 250 Ml Iv Soln IV 06/28/20 18:39 .DURING TRANSFUSION PRN THIS MED IS NOT "PRN" Sodium Chloride 250 mls @ 0 mls/hr 06/27/20 18:40 Nacl 0.9% 250 Ml Iv Soln IV 06/28/20 18:39 CONTINUOUS PRN AFTER EACH UNIT As Directed Ondansetron HCl 4 mg 06/27/20 03:49 06/27/20 04:11 Ondansetron Hcl Inj/Pf 4 Mg/2 Ml Sdv IV 06/27/20 03:50 4 mg NOW ONE Administration Polyethylene Glycol/Electrolytes 4,000 ml 06/28/20 12:30 06/28/20 18:10 Peg 3350/Na Sulf,Bicarb,Cl/Kcl 4000 Ml PO 06/28/20 12:31 4,000 ml NOW ONE Administration Assessment & Plan - Diagnosis (1) Acute exacerbation of CHF (congestive heart failure) Qualifiers: Heart failure type: unspecified Qualified Code(s): I50.9 - Heart failure, unspecified Is this a current diagnosis for this admission?: Yes Plan: 49-year-old female with known heart failure likely heart failure with reduced ejection fraction secondary to ischemic heart disease from her coronary artery disease. Her echocardiogram on 06/28/2020 demonstrated an ejection fraction at around 40%. She feels much better this morning and her net fluid balance is now -1038 cc so far. Her renal function has improved slightly and she is now followed by nephrology. Recommendations: -Continue with current doses of Coreg. -Start Entresto 24 mg / 26 mg p.o. twice daily. -Continue diuresis with Lasix 80 mg IV twice daily. -Continue to fluid intake to 1500 cc daily. -Low sodium diet, less than 1500 mg daily. -Strict intake and output. -Daily weights. -Daily BMP and magnesium and replace electrolytes as needed. -We will continue to follow with you. (2) Hyperlipidemia Is this a current diagnosis for this admission?: Yes Plan: The patient is currently on Lipitor 40 mg daily, I recommend increasing it to 80 mg daily with LFT check in 6 weeks. (3) Elevated troponin Is this a current diagnosis for this admission?: Yes Plan: Her current troponin is above her baseline and whether it represents a sequela of her acute heart failure exacerbation versus a primary ischemic event resulting in heart failure is unknown however the patient denies ischemic symptoms. She is already on a baby aspirin and beta-julius. Of note, she states that she had nuclear stress test in the recent past with normal results, I do not have those reports. Recommendations: -Echocardiogram as above. -Get records from outpatient real estate photographer as above. -Continue with cardiac telemetry. -Continue to trend enzymes. -Further recommendations pending review of cardiology records, echocardiogram results and patient's evolution in the hospital. (4) DANNI (acute kidney injury) Plan: Her creatinine this morning is slightly improved and down to 1.86. I will defer further management to the nephrology team. (5) CAD (coronary artery disease) of bypass graft Is this a current diagnosis for this admission?: Yes Plan: The patient underwent three-vessel CABG in 2009, unfortunately I do not have any of those records however she did have a nuclear stress test at this facility in September 2018 without evidence of ischemia. She has remained hemodynamically stable and free of ischemic symptoms. Recommendations: -Continue with current medical management. (6) Hypertension Qualifiers: Hypertension type: essential hypertension Qualified Code(s): I10 - Essential (primary) hypertension Is this a current diagnosis for this admission?: Yes Plan: Her blood pressure continues to be at goal. We will continue with current medical management. (7) Diabetes mellitus type 2 in obese Is this a current diagnosis for this admission?: Yes Plan: Further management per hospitalist team. (8) Atrial fibrillation Qualifiers: Atrial fibrillation type: unspecified chronic Qualified Code(s): I48.20 - Chronic atrial fibrillation, unspecified; I48.2 - Chronic atrial fibrillation Is this a current diagnosis for this admission?: Yes Plan: Per record review, the patient had A. fib and underwent PVI at some point however I do not have any details of the study. She did have a CVA at some point, again this is from record review and had been on Eliquis in the past. Luckily enough, her GI work-up this morning did not reveal an active site of bleeding but only mild gastritis therefore, Eliquis can be restarted. Recommendations: -Restart Eliquis 5 mg p.o. twice daily. -We will continue to follow with you.
[2020-06-29] MEDS: CEFTRIAXONE 1 GM/D5W RTU 1 GM/50 ML RTUPB IV SCH (10:00)
[2020-06-29] MEDS: CITALOPRAM HYDROBROMIDE 20 MG TABLET PO SCH (10:00)
[2020-06-29] MEDS: FUROSEMIDE INJ/PF 100 MG/10 ML SDV IV SCH ×2 (10:00→21:53)
[2020-06-29] MEDS: ASPIRIN 81 MG TABLET, CHEWABLE PO SCH (10:01)
[2020-06-29] MEDS: FERROUS SULFATE 325 MG TABLET PO SCH ×2 (10:01→17:18)
[2020-06-29] MEDS: CARVEDILOL 3.125 MG TABLET PO SCH ×2 (10:01→21:52)
[2020-06-29] MEDS: OXYCODONE HCL IR 5 MG TABLET PO PRN ×2 (10:05→19:28)
--- NOTE | 2020-06-29 10:52 | PDOC PROGRESS REPORT ---
Subjective Date:: 06/29/20 Subjective:: Patient is lying down comfortably in bed after her EGD and colonoscopy by Dr. Espinoza prince. She said she just feels tired. The EGD showed gastritis but no evidence of any active bleeding. Patient has made good amount of urine output, 4500 mL for the last 24 hours with intake and output balance of -1031. She has no new complaints. Reason For Visit: ACUTE HYPOXIC RESPIRATORY FAILURE, ACUTE DECOMPENS Physical Exam Vital Signs: Temp Pulse Resp BP Pulse Ox 97.4 F 72 16 136/73 H 96 06/29/20 09:07 06/29/20 09:07 06/29/20 09:07 06/29/20 09:07 06/29/20 09:07 Intake & Output 06/28/20 06/29/20 06/30/20 06:59 06:59 06:59 Intake Total 1572 2690 400 Output Total 800 4500 0 Balance 772 -1810 400 Weight 72.7 kg 72.7 kg Exam: General appearance: PRESENT: no acute distress, cooperative, well-developed, well-nourished Head exam: PRESENT: atraumatic, normocephalic Eye exam: PRESENT: conjunctiva slightly pale blood matter, PERRLA. ABSENT: scleral icterus Neck exam: ABSENT: JVD Respiratory exam: PRESENT: Normal breath sounds. ABSENT: crackles, rales, rhonchi, unlabored, wheezes Cardiovascular exam: PRESENT: Regular rate rhythm -+S1, +S2. ABSENT: diastolic murmur, systolic murmur GI/Abdominal exam: PRESENT: normal bowel sounds, soft. ABSENT: guarding, mass, tenderness Extremities exam: Improved bilateral grade 1 lower extremity stumps edema, skin is not as tight as yesterday Neurological exam: PRESENT: alert, awake, oriented to person, place and time. Skin exam: PRESENT: dry, warm, Results Laboratory Results: 06/29/20 04:50 06/29/20 04:50 06/28/20 06/28/20 06/28/20 06:12 06:12 16:50 WBC RBC Hgb Hct MCV MCH MCHC RDW Plt Count Seg Neutrophils % Retic Count (auto) 3.72 H Sodium Potassium Chloride Carbon Dioxide Anion Gap BUN Creatinine Est GFR ( Amer) Glucose Calcium Phosphorus 5.3 H Magnesium Iron 61.3 TIBC 393 % Saturation 16 Ferritin 401.00 H Vitamin B12 363.0 Folate 12.50 PTH Intact Stool Occult Blood NEGATIVE 06/29/20 06/29/20 06/29/20 04:50 04:50 04:50 WBC 6.1 RBC 3.59 L Hgb 10.4 L Hct 31.0 L MCV 86 MCH 28.9 MCHC 33.4 RDW 19.6 H Plt Count 192 Seg Neutrophils % 72.5 Retic Count (auto) Sodium 139.6 Potassium 3.7 Chloride 97 L Carbon Dioxide 32 H Anion Gap 11 BUN 79 H Creatinine 1.86 H Est GFR ( Amer) 35 L Glucose 103 Calcium 8.9 Phosphorus Magnesium 2.3 Iron TIBC % Saturation Ferritin Vitamin B12 Folate PTH Intact 152.6 H Stool Occult Blood 06/27/20 03:40 Clean Catch Midstream Urine Culture - Final Enterococcus Faecalis(Group D) 06/27/20 06/27/20 06/27/20 02:00 02:00 18:25 Troponin I 0.074 0.221 NT-Pro-B Natriuret Pep 02724 H 06/27/20 22:57 Troponin I 0.183 NT-Pro-B Natriuret Pep Impressions: Chest X-Ray 06/27/20 01:40 IMPRESSION: Moderate central edema pattern. Interval worsening. Renal Ultrasound 06/28/20 00:00 IMPRESSION: NORMAL RENAL AND BLADDER ULTRASOUND. Assessment & Plan - Diagnosis (1) Acute kidney injury superimposed on chronic kidney disease Is this a current diagnosis for this admission?: Yes Plan: Currently nonoliguric. Acute exacerbation of the patient's kidney function is most likely secondary to prerenal azotemia due to a CHF. Her baseline creatinine is most likely around 2+ . She has baseline proteinuria previously consistent with underlying diabetic nephropathy. No significant microhematuria. Current urine protein to creatinine ratio is 1.6. I would continue treating her acute CHF with IV diuretics, resume furosemide 80 mg IV every 12 hours. Strict I/O and fluid restriction with low-sodium diet. Maximize cardiac management per fine unhairer, Dr. Luis. No need of any acute renal replacement therapy at this time. Avoid nephrotoxic medications. Adjust medications per kidney function. Renal ultrasound showed normal-sized kidneys with the right measuring at 12 cm and the left at 11 cm and is pretty much unremarkable with a thought or significant findings. Kidney function is significantly improved today. Continue same dose diuretics for today. (2) Acute exacerbation of CHF (congestive heart failure) Qualifiers: Heart failure type: unspecified Qualified Code(s): I50.9 - Heart failure, unspecified Is this a current diagnosis for this admission?: Yes Plan: Resume diuresis. Cardiology on board. (3) Acute respiratory failure with hypoxia Is this a current diagnosis for this admission?: Yes Plan: Due to CHF exacerbation. (4) Chronic anemia Is this a current diagnosis for this admission?: Yes Plan: No evidence of active bleeding on EGD and colonoscopy done today by Dr. Kapadia. Mild gastritis was found. Her anemia is most likely secondary to a combination of anemia in chronic kidney disease and iron deficiency. Patient was transfused 2 units of packed RBC 4 weeks ago. Hemoglobin is improved today at 10.4. Iron is 61.3, iron saturation of 16 and ferritin of 401. Start ferrous sulfate 325 mg p.o. twice daily. No GREER therapy at this point. (5) Acute urinary tract infection Is this a current diagnosis for this admission?: Yes Plan: On ceftriaxone. Urine culture showed Enterococcus faecalis. (6) Hypermagnesemia Is this a current diagnosis for this admission?: Yes Plan: Due to DANNI/CKD. Now resolved. (7) Hyponatremia Is this a current diagnosis for this admission?: Yes Plan: Due to hypervolemic state. Now resolved. (8) Diabetes mellitus type 2 in obese Is this a current diagnosis for this admission?: Yes Plan: Uncontrolled. Defer to hospitalist. (9) Hypertension Qualifiers: Hypertension type: essential hypertension Qualified Code(s): I10 - Essen tial (primary) hypertension Is this a current diagnosis for this admission?: Yes Plan: Controlled. (10) Chronic kidney disease-mineral and bone disorder Is this a current diagnosis for this admission?: Yes Plan: Phosphorus is 5.3, PTH of 152 and calcium of 8.9. Advise low phosphorus diet. Calcitriol 3 times a week. (11) Elevated troponin Is this a current diagnosis for this admission?: Yes Plan: Per cardiology. (12) Peripheral arterial disease Is this a current diagnosis for this admission?: Yes Plan: Status post right BKA and left AKA - Time Time with patient: 15-25 minutes
[2020-06-29] MEDS ORDERED: CALCITRIOL 0.25 MCG CAPSULE PO SCH (11:00)
[2020-06-29] MEDS: ONDANSETRON HCL INJ/PF 4 MG/2 ML SDV IV PRN ×2 (11:21→19:50)
--- NOTE | 2020-06-29 12:27 | PDOC PROGRESS REPORT ---
Subjective Date:: 06/29/20 Subjective:: The patient had endoscopies earlier today. She is now on a clear liquid diet. She is tired because she did not get much sleep last night probably due to the bowel prep. Reason For Visit: ACUTE HYPOXIC RESPIRATORY FAILURE, ACUTE DECOMPENS Physical Exam Vital Signs: Temp Pulse Resp BP Pulse Ox 97.4 F 72 16 136/73 H 96 06/29/20 09:20 06/29/20 09:07 06/29/20 09:07 06/29/20 09:07 06/29/20 09:07 Intake & Output 06/28/20 06/29/20 06/30/20 06:59 06:59 06:59 Intake Total 1572 2690 400 Output Total 800 4500 0 Balance 772 -1810 400 Weight 72.7 kg 72.7 kg General appearance: PRESENT: cooperative, morbidly obese, well-developed Head exam: PRESENT: atraumatic, normocephalic Ear exam: PRESENT: normal external ear exam. ABSENT: bleeding, drainage Mouth exam: PRESENT: moist, tongue midline Teeth exam: PRESENT: poor dentation Respiratory exam: PRESENT: clear to auscultation amaya, symmetrical, unlabored. ABSENT: rales, rhonchi, tachypnea, wheezes Cardiovascular exam: PRESENT: RRR, +S1, +S2, systolic murmur - 3/6. ABSENT: bradycardia, diastolic murmur, irregular rhythm, tachycardia GI/Abdominal exam: PRESENT: normal bowel sounds, soft. ABSENT: distended, guarding, tenderness Rectal exam: PRESENT: deferred Neurological exam: PRESENT: alert, awake, oriented to person, oriented to place, oriented to time, oriented to situation Psychiatric exam: PRESENT: appropriate affect. ABSENT: agitated, anxious Focused psych exam: ABSENT: delusional, paranoid, restlessness Results Laboratory Results: 06/29/20 04:50 06/29/20 04:50 06/28/20 06/28/20 06/29/20 06:12 16:50 04:50 WBC RBC Hgb Hct MCV MCH MCHC RDW Plt Count Seg Neutrophils % Sodium Potassium Chloride Carbon Dioxide Anion Gap BUN Creatinine Est GFR ( Amer) Glucose Calcium Phosphorus 5.3 H Magnesium Iron 61.3 TIBC 393 % Saturation 16 Ferritin 401.00 H Vitamin B12 363.0 Folate 12.50 PTH Intact 152.6 H Stool Occult Blood NEGATIVE 06/29/20 06/29/20 04:50 04:50 WBC 6.1 RBC 3.59 L Hgb 10.4 L Hct 31.0 L MCV 86 MCH 28.9 MCHC 33.4 RDW 19.6 H Plt Count 192 Seg Neutrophils % 72.5 Sodium 139.6 Potassium 3.7 Chloride 97 L Carbon Dioxide 32 H Anion Gap 11 BUN 79 H Creatinine 1.86 H Est GFR ( Amer) 35 L Glucose 103 Calcium 8.9 Phosphorus Magnesium 2.3 Iron TIBC % Saturation Ferritin Vitamin B12 Folate PTH Intact Stool Occult Blood 06/27/20 03:40 Clean Catch Midstream Urine Culture - Final Enterococcus Faecalis(Group D) 06/27/20 06/27/20 06/27/20 02:00 02:00 18:25 Troponin I 0.074 0.221 NT-Pro-B Natriuret Pep 62942 H 06/27/20 22:57 Troponin I 0.183 NT-Pro-B Natriuret Pep Impressions: Chest X-Ray 06/27/20 01:40 IMPRESSION: Moderate central edema pattern. Interval worsening. Renal Ultrasound 06/28/20 00:00 IMPRESSION: NORMAL RENAL AND BLADDER ULTRASOUND. 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 Is this a current diagnosis for this admission?: Yes (3) Elevated troponin Is this a current diagnosis for this admission?: Yes (4) Acute urinary tract infection Is this a current diagnosis for this admission?: Yes (5) Enterococcus faecalis infection Is this a current diagnosis for this admission?: Yes (6) Anemia, chronic renal failure Qualifiers: Chronic kidney disease stage: stage 3 (moderate) Chronic kidney disease stage 3 subtype: stage 3b (GFR 30-44) Qualified Code(s): N18.32 - Chronic kidney disease, stage 3b; D63.1 - Anemia in chronic kidney disease Is this a current diagnosis for this admission?: Yes (7) Acute kidney injury superimposed on chronic kidney disease Is this a current diagnosis for this admission?: Yes (8) CAD (coronary artery disease) of bypass graft Is this a current diagnosis for this admission?: Yes (9) Hyperglycemia due to type 2 diabetes mellitus Qualifiers: Diabetes mellitus termite control technician insulin use: with termite control technician use Qualified Code(s): E11.65 - Type 2 diabetes mellitus with hyperglycemia; Z79.4 - termite exterminator helper (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 of insulin Is this a current diagnosis for this admission?: Yes (10) History of atrial fibrillation Is this a current diagnosis for this admission?: Yes (11) Hypertension Qualifiers: Hypertension type: essential hypertension Qualified Code(s): I10 - Essential (primary) hypertension Is this a current diagnosis for this admission?: Yes (12) Hyperlipidemia Qualifiers: Hyperlipidemia type: mixed hyperlipidemia Qualified Code(s): E78.2 - Mixed hyperlipidemia Is this a current diagnosis for this admission?: Yes - Plan Summary Summary: (1) Acute respiratory failure with hypoxia Is this a current diagnosis for this admission?: Yes (2) 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 Is this a current diagnosis for this admission?: Yes (3) Elevated troponin Is this a current diagnosis for this admission?: Yes (4) Acute urinary tract infection Is this a current diagnosis for this admission?: Yes (6) Anemia, chronic renal failure Qualifiers: Chronic kidney disease stage: stage 3 (moderate) Chronic kidney disease stage 3 subtype: stage 3b (GFR 30-44) Qualified Code(s): N18.32 - Chronic kidney disease, stage 3b; D63.1 - Anemia in chronic kidney disease Is this a current diagnosis for this admission?: Yes (7) Acute kidney injury superimposed on chronic kidney disease Is this a current diagnosis for this admission?: Yes (8) CAD (coronary artery disease) of bypass graft Is this a current diagnosis for this admission?: Yes (9) Hyperglycemia due to type 2 diabetes mellitus Qualifiers: Diabetes mellitus termite control technician insulin use: with halfway use Qualified Code(s): E11.65 - Type 2 diabetes mellitus with hyperglycemia; Z79.4 - termite exterminator helper (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 of insulin (10) History of atrial fibrillation Is this a current diagnosis for this admission?: Yes (11) Hypertension Qualifiers: Hypertension type: essential hypertension Qualified Code(s): I10 - Essential (primary) hypertension Is this a current diagnosis for this admission?: Yes (12) Hyperlipidemia Qualifiers: Hyperlipidemia type: mixed hyperlipidemia Qualified Code(s): E78.2 - Mixed hyperlipidemia Is this a current diagnosis for this admission?: Yes 06/29/2020 Respiratory failure with hypoxia-still requiring 1 L nasal cannula today. Congestive heart failure-continue aggressive diuresis. Entresto initiated. Continue carvedilol and furosemide. Troponins started trending down. No further studies ordered. Endoscopy did not reveal any site of bleeding. Anemia is most likely due to chronic renal failure. Patient currently with acute on chronic kidney failure. Continue aggressive diuresis as it seems to be improving. Diabetes with very good control. Continue diabetic diet and current insulin regimen. Increase atorvastatin to 80 mg daily Patient has a history of atrial fibrillation status post ablation and history of DVT. Resume Eliquis with negative endoscopy. Excellent blood pressure control. Continue current regimen. Urine culture revealed enterococci. Will discontinue cephalosporin and initiate penicillin based treatment. - Time Time Spent with patient: 15-24 minutes Medications reviewed and adjusted accordingly: Yes Anticipated Discharge Disposition: Home with Home Health Anticipated Discharge Timeframe: within 48 hours
[2020-06-29] MEDS: AMOXICILLIN TRIHYDRATE 500 MG CAPSULE PO SCH (21:52)
[2020-06-29] MEDS: SACUBITRIL/VALSARTAN 24 MG/26 MG TABLET PO SCH (21:52)
[2020-06-29] MEDS: INSULIN GLARGINE,HUM.REC.ANLOG 1,000 UNIT/10 ML VIAL SUBCUT SCH (21:53)
[2020-06-29] MEDS ORDERED: ATORVASTATIN CALCIUM 80 MG TABLET PO SCH (22:00)
[2020-06-30] MEDS: ONDANSETRON HCL INJ/PF 4 MG/2 ML SDV IV PRN (04:12)
[2020-06-30] MEDS: OXYCODONE HCL IR 5 MG TABLET PO PRN ×2 (04:12→12:34)
[2020-06-30 05:50] LABS: ABSOLUTE EOSINOPHILS # (AUTO) 0.1 10^3/uL (0.0-0.6); ABSOLUTE LYMPHOCYTES (AUTO) 0.8 10^3/uL (0.5-4.7); ABSOLUTE MONOCYTES (AUTO) 0.4 10^3/uL (0.1-1.4); ABSOLUTE NEUT (AUTO) 5.3 10^3/uL (1.7-8.2); BASOPHILS % (AUTO) 0.4 % (0-2); EOSINOPHILS % (AUTO) 1.5 % (0-6); HEMATOCRIT 30.5 % (36.0-47.0); HEMOGLOBIN 10.4 g/dL (12.0-15.5); LYMPHOCYTES % (AUTO) 12.6 % (13-45); MEAN CORPUSCULAR HEMOGLOBIN 29.4 pg (27.0-33.4); MEAN CORPUSCULAR VOLUME 87 fl (80-97); MONOCYTES % (AUTO) 5.5 % (3-13); PLATELET COUNT 210 10^3/uL (150-450); RED BLOOD COUNT 3.52 10^6/uL (3.72-5.28); RED CELL DISTRIBUTION WIDTH 19.3 % (11.5-14.0); TOTAL CELLS COUNTED % (AUTO) 100 %; WHITE BLOOD COUNT 6.7 10^3/uL (4.0-10.5)
[2020-06-30 06:09] LABS: ANION GAP 12 (5-19); CALCIUM 9.1 mg/dL (8.4-10.2); CARBON DIOXIDE 30 mmol/L (22-30); CHLORIDE 95 mmol/L (98-107); GLUCOSE 167 mg/dL (75-110); POTASSIUM 3.4 mmol/L (3.6-5.0)
[2020-06-30 06:20] LABS: BLOOD UREA NITROGEN 54 mg/dL (7-20)
[2020-06-30] MEDS: PANTOPRAZOLE SODIUM 40 MG TABLET.DR PO SCH (06:34)
[2020-06-30] MEDS: INSULIN REG, HUMAN 100 UNIT/ML 3 ML VIAL (PYX) SUBCUT SCH ×3 (08:01→11:17)
[2020-06-30] MEDS: ASPIRIN 81 MG TABLET, CHEWABLE PO SCH (09:46)
[2020-06-30] MEDS: FERROUS SULFATE 325 MG TABLET PO SCH (09:46)
[2020-06-30] MEDS: CITALOPRAM HYDROBROMIDE 20 MG TABLET PO SCH (09:46)
[2020-06-30] MEDS: CARVEDILOL 3.125 MG TABLET PO SCH (09:47)
[2020-06-30] MEDS ORDERED: APIXABAN 5 MG TABLET PO SCH (10:00)
--- NOTE | 2020-06-30 10:22 | PDOC PROGRESS REPORT ---
Subjective Date:: 06/30/20 Subjective:: HELDER SERNA is a 49 year old female with history of coronary artery disease status post myocardial infarction in the past and status post three-vessel CABG in 2009, peripheral vascular disease status post right below the knee amputation and left [id number] amputation, heart failure with reduced ejection fraction, ischemic cardiomyopathy, hypertension, hyperlipidemia, chronic kidney disease, type 2 diabetes, ex-smoker who quit in March 2010 who is consulted to our service for further evaluation and management of heart failure. The patient had been seen in our emergency room at least 3 times since May 2020 for different complaints but most notably for shortness of breath. At some point she was diagnosed with pneumonia. This morning she states that she began with worsening of shortness of breath as well as edema along with some PND approximately 2 weeks ago. Her symptoms progressively worsened until she sought medical attention in our emergency room room yesterday and was admitted. She was noted to have a significant anemia and was given a blood transfusion. This morning she feels slightly better however continues to have some shortness of breath. She is followed by a job hand at [facility] in [place], [place] who ordered an outpatient cardiac rhythm monitoring device for complaints of palpitations and shortness of breath which the patient is still wearing. Of note, she has an appointment with the job hand on 06 July 2020. 06/30/2020: The patient had uneventful night from the cardiovascular standpoint and denies chest pain and shortness of breath. Her fluid balance is -1211 mL. She is tolerating all her medications without significant side effects and her renal function continues to improve. Her telemetry does not show ventricular dysrhythmias. Physical exam on 06/30/2020: GENERAL: Pleasant and conversational. Oriented x3 with normal mood. Not in acute distress. Well groomed and well developed. Sitting up in bed, no acute complaints. HEENT: Normocephalic, atraumatic. Pupils equal. Sclerae anicteric. Oropharynx moist. NECK: No JVD. No carotid bruits. LUNGS: Clear to auscultation bilaterally. Normal respiratory effort without the use of accessory muscles or intercostal retractions. CARDIOVASCULAR: Regular rate and rhythm, normal S1 and S2 without murmurs, rubs, or gallops. PMI not displaced. ABDOMEN: No masses or tenderness to palpation. No bruit. No splenomegaly or hepatomegaly. No abdominal aorta bruit noted. EXTREMITIES: Below the knee amputation on the right, [id number] amputation on the left. SKIN: No lesions or rashes. MUSCULOSKELETAL: No chest tenderness to palpation. NEUROLOGIC: Nonfocal. Reason For Visit: ACUTE HYPOXIC RESPIRATORY FAILURE, ACUTE DECOMPENS Physical Exam Vital Signs: Temp Pulse Resp BP Pulse Ox 97.9 F 65 17 125/64 96 06/30/20 07:32 06/30/20 07:32 06/30/20 07:32 06/30/20 07:32 06/30/20 07:32 Intake & Output 06/29/20 06/30/20 07/01/20 06:59 06:59 06:59 Intake Total 2690 3502 Output Total 4500 3675 Balance -1810 -173 Weight 72.7 kg 72.7 kg Results Laboratory Results: 06/30/20 04:30 06/30/20 04:30 06/30/20 06/30/20 04:30 04:30 WBC 6.7 RBC 3.52 L Hgb 10.4 L Hct 30.5 L MCV 87 MCH 29.4 MCHC 34.0 RDW 19.3 H Plt Count 210 Seg Neutrophils % 80.0 H Sodium 137.4 Potassium 3.4 L Chloride 95 L Carbon Dioxide 30 Anion Gap 12 BUN 54 H D Creatinine 1.35 H Est GFR ( Amer) 50 L Glucose 167 H Calcium 9.1 06/27/20 03:40 Clean Catch Midstream Urine Culture - Final Enterococcus Faecalis(Group D) 06/27/20 06/27/20 06/27/20 02:00 02:00 18:25 Troponin I 0.074 0.221 NT-Pro-B Natriuret Pep 02506 H 06/27/20 22:57 Troponin I 0.183 NT-Pro-B Natriuret Pep Impressions: Chest X-Ray 06/27/20 01:40 IMPRESSION: Moderate central edema pattern. Interval worsening. Renal Ultrasound 06/28/20 00:00 IMPRESSION: NORMAL RENAL AND BLADDER ULTRASOUND. 06/30/20 04:30 06/30/20 04:30 MCV 87 fl (80-97) 06/30/20 04:30 MCH 29.4 pg (27.0-33.4) 06/30/20 04:30 MCHC 34.0 g/dL (32.0-36.0) 06/30/20 04:30 RDW 19.3 % (11.5-14.0) H 06/30/20 04:30 Seg Neutrophils % 80.0 % (42-78) H 06/30/20 04:30 Retic Count (auto) 3.72 % (0.66-2.85) H 06/28/20 06:12 VBG pH 7.39 (7.30-7.42) 06/27/20 10:32 VBG pCO2 46.4 mmHg (35-63) 06/27/20 10:32 VBG HCO3 27.6 mmol/L (20-32) 06/27/20 10:32 VBG Base Excess 2.4 mmol/L 06/27/20 10:32 Chloride 95 mmol/L (98-107) L 06/30/20 04:30 Carbon Dioxide 30 mmol/L (22-30) 06/30/20 04:30 Anion Gap 12 (5-19) 06/30/20 04:30 Est GFR ( Amer) 50 (>60) L 06/30/20 04:30 Glucose 167 mg/dL (75-110) H 06/30/20 04:30 Calcium 9.1 mg/dL (8.4-10.2) 06/30/20 04:30 Phosphorus 5.3 mg/dL (2.5-4.5) H 06/28/20 06:12 Magnesium 2.3 mg/dL (1.6-2.3) 06/29/20 04:50 Iron 61.3 ug/dL (37-170) 06/28/20 06:12 TIBC 393 ug/dL (250-450) 06/28/20 06:12 % Saturation 16 % 06/28/20 06:12 Ferritin 401.00 ng/mL (11.1-264.0) H 06/28/20 06:12 Total Bilirubin 0.7 mg/dL (0.2-1.3) 06/27/20 02:00 AST 24 U/L (14-36) 06/27/20 02:00 Alkaline Phosphatase 54 U/L (38-126) 06/27/20 02:00 Total Protein 7.1 g/dL (6.3-8.2) 06/27/20 02:00 Albumin 3.8 g/dL (3.5-5.0) 06/27/20 02:00 Vitamin B12 363.0 pg/mL (239-931) 06/28/20 06:12 Folate 12.50 ng/mL (>2.76) 06/28/20 06:12 PTH Intact 152.6 pg/mL (10.0-65.0) H 06/29/20 04:50 Urine Color YELLOW 06/27/20 03:40 Urine Appearance SLIGHTLY-CLOUDY 06/27/20 03:40 Urine pH 6.0 (5.0-9.0) 06/27/20 03:40 Ur Specific [place]hal 1.015 06/27/20 03:40 Urine Protein 100 mg/dL (NEGATIVE) H 06/27/20 03:40 Urine Glucose (UA) NEGATIVE mg/dL (NEGATIVE) 06/27/20 03:40 Urine Ketones NEGATIVE mg/dL (NEGATIVE) 06/27/20 03:40 Urine Blood NEGATIVE (NEGATIVE) 06/27/20 03:40 Urine Nitrite NEGATIVE (NEGATIVE) 06/27/20 03:40 Ur Leukocyte Esterase MODERATE (NEGATIVE) H 06/27/20 03:40 Urine WBC (Auto) 84 /HPF 06/27/20 03:40 Urine RBC (Auto) 4 /HPF 06/27/20 03:40 Stool Occult Blood NEGATIVE (NEGATIVE) 06/28/20 16:50 Blood Type O POSITIVE 06/27/20 18:50 Antibody Screen NEGATIVE 06/27/20 18:50 06/27/20 03:40 Clean Catch Midstream Urine Culture - Final Enterococcus Faecalis(Group D) 06/27/20 06/27/20 06/27/20 02:00 02:00 18:25 Troponin I 0.074 0.221 NT-Pro-B Natriuret Pep 01658 H 06/27/20 22:57 Troponin I 0.183 NT-Pro-B Natriuret Pep Current Medication List Generic Name Dose Route Start Last Admin Trade Name Freq PRN Reason Stop Dose Admin Acetaminophen 650 mg 06/28/20 11:30 Acetaminophen 325 Mg Tablet PO 07/27/20 05:42 Q6HP PRN FEVER >101 Amoxicillin 500 mg 06/29/20 22:00 06/29/20 21:52 Amoxicillin Trihydrate 500 Mg Capsule PO 07/06/20 21:59 500 mg Q12 GLADIS Administration Apixaban 5 mg 06/30/20 10:00 06/30/20 09:46 Apixaban 5 Mg Tablet PO 07/30/20 09:59 5 mg BID GLADIS Administration Aspirin 81 mg 06/27/20 10:00 06/30/20 09:46 Aspirin 81 Mg Tablet, Chewable PO 07/27/20 09:59 81 mg DAILY GLADIS Administration Atorvastatin Calcium 80 mg 06/29/20 22:00 06/29/20 21:52 Atorvastatin Calcium 80 Mg Tablet PO 07/29/20 21:59 80 mg QHS GLADIS Administration Calcitriol 0.25 mcg 06/29/20 11:00 06/29/20 11:20 Calcitriol 0.25 Mcg Capsule PO 07/29/20 10:59 0.25 mcg TUTHSA GLADIS Administration Carvedilol 3.125 mg 06/27/20 10:00 06/30/20 09:47 Carvedilol 3.125 Mg Tablet PO 07/27/20 09:59 3.125 mg Q12 GLADIS Administration Citalopram Hydrobromide 40 mg 06/27/20 10:00 06/30/20 09:46 Citalopram Hydrobromide 20 Mg Tablet PO 07/27/20 09:59 40 mg DAILY GLADIS Administration Dextrose 12.5 gm 06/27/20 05:51 Dextrose 50%-Water 25 Gm/50 Ml Disp.Syrin IV 07/27/20 05:50 PRN PRN FOR BG 50-69 IN ALERT PATIENT Protocol Dextrose 25 gm 06/27/20 05:51 Dextrose 50%-Water 25 Gm/50 Ml Disp.Syrin IV 07/27/20 05:50 PRN PRN PER PROTOCOL Protocol Ferrous Sulfate 325 mg 06/29/20 18:00 06/30/20 09:46 Ferrous Sulfate 325 Mg Tablet PO 07/29/20 17:59 325 mg BID GLADIS Administration Furosemide 80 mg 06/28/20 12:00 06/29/20 21:53 Furosemide Inj/Pf 100 Mg/10 Ml Sdv IV 07/28/20 11:59 80 mg Q12 GLADIS Administration Glucagon 1 mg 06/27/20 05:51 Glucagon,Human Recomb 1 Mg Inj IM 07/27/20 05:50 PRN PRN Evaluate for BG < 70 Protocol Glucose 15 gm 06/27/20 05:51 Dextrose 40% Gel 15 Gm Tube PO 07/27/20 05:50 PRN PRN FOR BG 50-69 IN ALERT PATIENT Protocol Glucose 30 gm 06/27/20 05:51 Dextrose 40% Gel 15 Gm Tube PO 07/27/20 05:50 PRN PRN FOR BG < 50 IN ALERT PATIENT Protocol Insulin Glargine 15 unit 06/27/20 22:00 06/29/20 21:53 Insulin Glargine,Hum.Rec.Anlog 1,000 Unit/10 Ml Vial SUBCUT 07/27/20 21:59 15 unit QHS GLADIS Administration Insulin Human Regular 0 - 12 unit 06/27/20 08:00 06/30/20 08:05 Insulin Reg, Human 100 Unit/Ml 3 Ml Vial (Pyx) SUBCUT 07/27/20 07:59 2 unit ACHS GLADIS Administration Protocol Insulin Human Regular 5 unit 06/27/20 08:00 06/30/20 08:01 Insulin Reg, Human 100 Unit/Ml 3 Ml Vial (Pyx) SUBCUT 07/27/20 07:59 Not Given ACBRKLula [facility] Ondansetron HCl 4 mg 06/27/20 05:43 06/30/20 04:12 Ondansetron Hcl Inj/Pf 4 Mg/2 Ml Sdv IV 07/27/20 05:42 4 mg Q8HP PRN Administration FOR NAUSEA/VOMITING Oxycodone HCl 5 mg 06/27/20 21:13 06/30/20 04:12 Oxycodone Hcl Ir 5 Mg Tablet PO 07/04/20 21:12 5 mg Q8HP PRN Administration PAIN Pantoprazole Sodium 40 mg 06/27/20 06:00 06/30/20 06:34 Pantoprazole Sodium 40 Mg Tablet.Dr PO 07/27/20 05:59 40 mg Q6AM GLADIS Administration Sacubitril/Valsartan 1 tab 06/29/20 22:00 06/29/20 21:52 Sacubitril/Valsartan 24 Mg/26 Mg Tablet PO 07/29/20 21:59 1 tab Q12 GLADIS Administration Discontinued Medications Generic Name Dose Route Start Last Admin Trade Name Freq PRN Reason Stop Dose Admin Acetaminophen 650 mg 06/27/20 05:43 06/27/20 17:54 Acetaminophen 325 Mg Tablet PO 07/27/20 05:42 650 mg Q4HP PRN Administration FEVER >101 Atorvastatin Calcium 40 mg 06/27/20 22:00 06/28/20 22:46 Atorvastatin Calcium 40 Mg Tablet PO 07/27/20 21:59 40 mg QHS GLADIS Administration Diphenhydramine HCl 12.5 mg 06/29/20 08:22 Diphenhydramine Hcl 50 Mg/Ml Vial IV 06/29/20 11:22 .WHILE IN PACU PRN ITCHING Ephedrine Sulfate Confirm 06/29/20 06:53 Ephedrine Sulfate Inj 50 Mg/1 Ml Ampule Administered 06/29/20 06:54 Dose 50 mg .ROUTE .STK-MED ONE Etomidate 20 mg 06/27/20 14:46 Etomidate Inj/Pf 20 Mg/10 Ml Sdv IV 06/27/20 14:47 .STK-MED ONE Fentanyl Citrate 25 mcg 06/29/20 08:22 Fentanyl Citrate Inj/Pf 100 Mcg/2 Ml Ampul IV 06/29/20 11:22 .WHILE IN PACU PRN PAIN SCALE 2-3 Fentanyl Citrate 12.5 mcg 06/29/20 08:22 Fentanyl Citrate Inj/Pf 100 Mcg/2 Ml Ampul IV 06/29/20 11:22 .WHILE IN PACU PRN PAIN SCALE OF 1 Fentanyl Citrate 50 mcg 06/29/20 08:22 Fentanyl Citrate Inj/Pf 100 Mcg/2 Ml Ampul IV 06/29/20 11:22 .WHILE IN PACU PRN PAIN SCALE 4-5 Ferrous Sulfate 325 mg 06/27/20 10:00 06/29/20 10:01 Ferrous Sulfate 325 Mg Tablet PO 07/27/20 09:59 325 mg DAILY GLADIS Administration Furosemide 20 mg 06/27/20 03:50 06/27/20 04:01 Furosemide Inj/Pf 20 Mg/2 Ml Sdv IV 06/27/20 03:51 Not Given NOW ONE Furosemide 40 mg 06/27/20 03:54 06/27/20 04:11 Furosemide Inj/Pf 20 Mg/2 Ml Sdv IV 06/27/20 03:55 40 mg NOW ONE Administration Furosemide 40 mg 06/27/20 10:00 Furosemide Inj/Pf 40 Mg/4 Ml Sdv IV 07/27/20 09:59 Q12 GLADIS Furosemide 80 mg 06/27/20 10:00 06/27/20 23:36 Furosemide Inj/Pf 100 Mg/10 Ml Sdv IV 07/27/20 09:59 80 mg Q12 GLADIS Administration Ceftriaxone Sodium/Dextrose 1 gm in 50 mls @ 100 mls/hr 06/27/20 06:30 06/29/20 10:30 Rocephin Rtu 1 Gm/D5w 50 Ml Premix IV 07/04/20 06:29 Infused DAILY GLADIS Infusion Sodium Chloride 250 mls @ 30 mls/hr 06/27/20 18:40 Nacl 0.9% 250 Ml Iv Soln IV 06/28/20 18:39 .DURING TRANSFUSION PRN THIS MED IS NOT "PRN" Sodium Chloride 250 mls @ 0 mls/hr 06/27/20 18:40 Nacl 0.9% 250 Ml Iv Soln IV 06/28/20 18:39 CONTINUOUS PRN AFTER EACH UNIT As Directed Lidocaine HCl Confirm 06/29/20 06:54 Lidocaine 2% Inj (20 Mg/Ml) 20 Ml Mdv Administered 06/29/20 06:55 Dose 20 ml .ROUTE .STK-MED ONE Ondansetron HCl 4 mg 06/27/20 03:49 06/27/20 04:11 Ondansetron Hcl Inj/Pf 4 Mg/2 Ml Sdv IV 06/27/20 03:50 4 mg NOW ONE Administration Polyethylene Glycol/Electrolytes 4,000 ml 06/28/20 12:30 06/28/20 18:10 Peg 3350/Na Sulf,Bicarb,Cl/Kcl 4000 Ml PO 06/28/20 12:31 4,000 ml NOW ONE Administration Promethazine HCl 12.5 mg 06/29/20 08:22 Promethazine Hcl Inj 25 Mg/1 Ml Vial IV 06/29/20 11:22 .WHILE IN PACU PRN NAUSEA AND VOMITING Promethazine HCl 25 mg 06/29/20 08:22 Promethazine Hcl Inj 25 Mg/1 Ml Vial IV 06/29/20 11:22 .WHILE IN PACU PRN NAUSEA AND VOMITING Propofol Confirm 06/29/20 06:54 Propofol Inj 200 Mg/20 Ml Vial Administered 06/29/20 06:55 Dose 200 mg IV .STK-MED ONE Assessment & Plan - Diagnosis (1) Acute exacerbation of CHF (congestive heart failure) Qualifiers: Heart failure type: unspecified Qualified Code(s): I50.9 - Heart failure, unspecified Is this a current diagnosis for this admission?: Yes Plan: 49-year-old female with known heart failure likely heart failure with reduced ejection fraction secondary to ischemic heart disease from her coronary artery disease. Her echocardiogram on 06/28/2020 demonstrated an ejection fraction at around 40%. She continues to improve and appears to be euvolemic today. Renal function continues to improve. I discussed with the patient this morning that she should stay in the hospital 24 hours after converting her IV Lasix to p.o. dosing however she states that she has a very important doctor's appointment for a prosthetic leg and she does not want to miss that appointment. She already has a scheduled appointment with her outpatient job hand next week. Recommendations: -Continue with current doses of Coreg. -Continue with Entresto 24 mg / 26 mg p.o. twice daily. -Convert Lasix IV to p.o. -Continue to fluid intake to 1500 cc daily. -Low sodium diet, less than 1500 mg daily. -Strict intake and output. -Daily weights. -Will defer further management to her outpatient job hand. (2) Hyperlipidemia Qualifiers: Hyperlipidemia type: mixed hyperlipidemia Qualified Code(s): E78.2 - Mixed hyperlipidemia Is this a current diagnosis for this admission?: Yes Plan: Continue with current medical management with LFT check in 6 weeks. (3) Elevated troponin Is this a current diagnosis for this admission?: Yes Plan: Her current troponin is above her baseline and whether it represents a sequela of her acute heart failure exacerbation versus a primary ischemic event resulting in heart failure is unknown however the patient denies ischemic sympto ms. She is already on a baby aspirin and beta-julius. Of note, she delete had nuclear stress test i at this facility in 2018 with normal results. Once again, she has remained free of ischemic symptoms and is determined to leave the hospital today. Recommendations: -Follow-up with outpatient job hand as scheduled. (4) DANNI (acute kidney injury) Plan: Her creatinine this morning is improved this morning. I will defer further management to the nephrology team. (5) CAD (coronary artery disease) of bypass graft Is this a current diagnosis for this admission?: Yes Plan: The patient underwent three-vessel CABG in 2009, unfortunately I do not have any of those records however she did have a nuclear stress test at this facility in September 2018 without evidence of ischemia. She has remained hemodynamically stable and free of ischemic symptoms. Recommendations: -Continue with current medical management. (6) Hypertension Qualifiers: Hypertension type: essential hypertension Qualified Code(s): I10 - Essentia l (primary) hypertension Is this a current diagnosis for this admission?: Yes Plan: Her blood pressure continues to be at goal. We will continue with current medical management. (7) Diabetes mellitus type 2 in obese Is this a current diagnosis for this admission?: Yes (8) Atrial fibrillation Qualifiers: Atrial fibrillation type: unspecified chronic Qualified Code(s): I48.20 - Chronic atrial fibrillation, unspecified; I48.2 - Chronic atrial fibrillation Is this a current diagnosis for this admission?: Yes Plan: Per record review, the patient had A. fib and underwent PVI at some point however I do not have any details of the study. She did have a CVA at some point, again this is from record review and had been on Eliquis in the past. Luckily enough, her GI work-up was benign and she is now tolerating Eliquis 5 mg twice daily. Recommendations: -Continue with current medical management. -Follow-up with outpatient job hand as scheduled.
[2020-06-30] MEDS ORDERED: POTASSIUM CHLORIDE 10 MEQ TABLET.ER PO ONE ×2 (10:28→10:31)
--- NOTE | 2020-06-30 10:40 | PDOC PROGRESS REPORT ---
Subjective Date:: 06/30/20 Subjective:: Patient states that she feels nauseous this morning due to not being able to eat for the last couple days and being hungry. She had a diet ordered this breakfast but she was unable to eat because of nausea. Other than that she feels better and is breathing better. She remains to have good urine output and partial urine output for the past 24 hours was 3675 mL. Sims catheter was taken off yesterday afternoon. Patient states that she wanted to go home today because she has a very important appointment tomorrow for prosthetics. Reason For Visit: ACUTE HYPOXIC RESPIRATORY FAILURE, ACUTE DECOMPENS Physical Exam Vital Signs: Temp Pulse Resp BP Pulse Ox 97.9 F 65 17 125/64 96 06/30/20 07:32 06/30/20 07:32 06/30/20 07:32 06/30/20 07:32 06/30/20 07:32 Intake & Output 06/29/20 06/30/20 07/01/20 06:59 06:59 06:59 Intake Total 2690 3502 Output Total 4500 3675 Balance -1810 -173 Weight 72.7 kg 72.7 kg Exam: General appearance: PRESENT: no acute distress, cooperative, well-developed, well-nourished Head exam: PRESENT: atraumatic, normocephalic Eye exam: PRESENT: conjunctiva slightly pale, PERRLA. ABSENT: scleral icterus Neck exam: ABSENT: JVD Respiratory exam: PRESENT: Diminished breath sounds. ABSENT: crackles, rales, rhonchi, unlabored, wheezes Cardiovascular exam: PRESENT: Regular rate rhythm -+S1, +S2. ABSENT: diastolic murmur, systolic murmur GI/Abdominal exam: PRESENT: normal bowel sounds, soft. Improved subcutaneous edema ABSENT: guarding, mass, tenderness Extremities exam: Improved bilateral grade 1 lower extremity bleeding edema Neurological exam: PRESENT: alert, awake, oriented to person, place and time. Skin exam: PRESENT: dry, warm, pale Results Laboratory Results: 06/30/20 04:30 06/30/20 04:30 06/30/20 06/30/20 04:30 04:30 WBC 6.7 RBC 3.52 L Hgb 10.4 L Hct 30.5 L MCV 87 MCH 29.4 MCHC 34.0 RDW 19.3 H Plt Count 210 Seg Neutrophils % 80.0 H Sodium 137.4 Potassium 3.4 L Chloride 95 L Carbon Dioxide 30 Anion Gap 12 BUN 54 H D Creatinine 1.35 H Est GFR ( Amer) 50 L Glucose 167 H Calcium 9.1 06/27/20 03:40 Clean Catch Midstream Urine Culture - Final Enterococcus Faecalis(Group D) 06/27/20 06/27/20 06/27/20 02:00 02:00 18:25 Troponin I 0.074 0.221 NT-Pro-B Natriuret Pep 40945 H 06/27/20 22:57 Troponin I 0.183 NT-Pro-B Natriuret Pep Impressions: Chest X-Ray 06/27/20 01:40 IMPRESSION: Moderate central edema pattern. Interval worsening. Renal Ultrasound 06/28/20 00:00 IMPRESSION: NORMAL RENAL AND BLADDER ULTRASOUND. Assessment & Plan - Diagnosis (1) Acute kidney injury superimposed on chronic kidney disease Is this a current diagnosis for this admission?: Yes Plan: Acute exacerbation of the patient's kidney function is most likely secondary to prerenal azotemia due to a CHF. She has baseline proteinuria previously consistent with underlying diabetic nephropathy. No significant microhematuria. Current urine protein to creatinine ratio is 1.6. Strict I/O and fluid restriction with low-sodium diet. Maximize cardiac management per chrome cleaner, Dr. Luis. No need of any acute renal replacement therapy at this time. Avoid nephrotoxic medications. Adjust medications per kidney function. In preparation for the patient going home, agree with Dr. Luis suggestion of converting diuretics orally. Patient takes Bumex 2 mg twice daily at home. Upon discharge she may need to be on Bumex 3 mg twice daily. We'll switch her to Bumex now. Renal ultrasound showed normal-sized kidneys with the right measuring at 12 cm and the left at 11 cm and is pretty much unremarkable with a thought or significant findings. Kidney function continues to improve. I expect the patient's kidney function to continue to improve from this point on. I will sign off for now. Please call for any questions or if I could be of further help. (2) Acute exacerbation of CHF (congestive heart failure) Qualifiers: Heart failure type: unspecified Qualified Code(s): I50.9 - Heart failure, unspecified Is this a current diagnosis for this admission?: Yes Plan: On diuretics. Cardiology on board. (3) Acute respiratory failure with hypoxia Is this a current diagnosis for this admission?: Yes Plan: Due to CHF exacerbation. Resolved. (4) Chronic anemia Is this a current diagnosis for this admission?: Yes Plan: No evidence of active bleeding on EGD and colonoscopy done today by Dr. Kapadia. Mild gastritis was found. Her anemia is most likely secondary to a combination of anemia in chronic kidney disease and iron deficiency. Patient was transfused 2 units of packed RBC 4 weeks ago. Hemoglobin is improved today at 10.4. Iron is 61.3, iron saturation of 16 and ferritin of 401. Started ferrous sulfate 325 mg p.o. twice daily. No GREER therapy at this point. (5) Acute urinary tract infection Is this a current diagnosis for this admission?: Yes Plan: On amoxicillin. Urine culture showed Enterococcus faecalis. (6) Hypermagnesemia Is this a current diagnosis for this admission?: Yes Plan: Due to DANNI/CKD. Now resolved. (7) Hyponatremia Is this a current diagnosis for this admission?: Yes Plan: Due to hypervolemic state. Now resolved. (8) Diabetes mellitus type 2 in obese Is this a current diagnosis for this admission?: Yes Plan: Uncontrolled but improving in the hospital. Defer to hospitalist. (9) Hypertension Qualifiers: Hypertension type: essential hypertension Qualified Code(s): I10 - Essential (primary) hypertension Is this a current diagnosis for this admission?: Yes Plan: Controlled. (10) Chronic kidney disease-mineral and bone disorder Is this a current diagnosis for this admission?: Yes Plan: Phosphorus is 5.3, PTH of 152 and calcium of 8.9. Advise low phosphorus diet. Calcitriol 3 times a week. (11) Hypokalemia Is this a current diagnosis for this admission?: Yes Plan: Replace potassium today. (12) Elevated troponin Is this a current diagnosis for this admission?: Yes Plan: Per cardiology. (13) Peripheral arterial disease Is this a current diagnosis for this admission?: Yes Plan: Status post right BKA and left AKA - Time Time with patient: 15-25 minutes
[2020-06-30] MEDS ORDERED: METOCLOPRAMIDE HCL 10 MG TABLET PO SCH (11:00)
[2020-06-30] MEDS: SACUBITRIL/VALSARTAN 24 MG/26 MG TABLET PO SCH (11:13)
[2020-06-30] MEDS: AMOXICILLIN TRIHYDRATE 500 MG CAPSULE PO SCH (11:14)
[2020-06-30] MEDS ORDERED: BUMETANIDE 1 MG TABLET PO SCH (11:30)
[2020-06-30] MEDS ORDERED: ONDANSETRON HCL INJ/PF 4 MG/2 ML SDV IV ONE (11:58)
--- NOTE | 2020-06-30 12:33 | PDOC DISCHARGE SUMMARY ---
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 Is this a current diagnosis for this admission?: Yes (3) Elevated troponin Is this a current diagnosis for this admission?: Yes (4) Acute urinary tract infection Is this a current diagnosis for this admission?: Yes (5) Enterococcus faecalis infection Is this a current diagnosis for this admission?: Yes (6) Anemia, chronic renal failure Is this a current diagnosis for this admission?: Yes (7) Acute kidney injury superimposed on chronic kidney disease Is this a current diagnosis for this admission?: Yes (8) CAD (coronary artery disease) of bypass graft Is this a current diagnosis for this admission?: Yes (9) Hyperglycemia due to type 2 diabetes mellitus Is this a current diagnosis for this admission?: Yes (10) History of atrial fibrillation Is this a current diagnosis for this admission?: Yes (11) Hypertension Is this a current diagnosis for this admission?: Yes (12) Hyperlipidemia Is this a current diagnosis for this admission?: Yes - Assessment Summary: (1) Acute respiratory failure with hypoxia Is this a current diagnosis for this admission?: Yes (2) 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 Is this a current diagnosis for this admission?: Yes (3) Elevated troponin Is this a current diagnosis for this admission?: Yes (4) Acute urinary tract infection Is this a current diagnosis for this admission?: Yes (6) Anemia, chronic renal failure Qualifiers: Chronic kidney disease stage: stage 3 (moderate) Chronic kidney disease stage 3 subtype: stage 3b (GFR 30-44) Qualified Code(s): N18.32 - Chronic kidney disease, stage 3b; D63.1 - Anemia in chronic kidney disease Is this a current diagnosis for this admission?: Yes (7) Acute kidney injury superimposed on chronic kidney disease Is this a current diagnosis for this admission?: Yes (8) CAD (coronary artery disease) of bypass graft Is this a current diagnosis for this admission?: Yes (9) Hyperglycemia due to type 2 diabetes mellitus Qualifiers: Diabetes mellitus snf insulin use: with snf use Qualified Code(s): E11.65 - Type 2 diabetes mellitus with hyperglycemia; 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 Congestive heart failure-continue aggressive diuresis. Entresto initiated. Continue carvedilol and furosemide. Troponins started trending down. No further studies ordered. Endoscopy did not reveal any site of bleeding. Anemia is most likely due to chronic renal failure. Patient currently with acute on chronic kidney failure. Continue aggressive diuresis as it seems to be improving. Diabetes with very good control. Continue diabetic diet and current insulin regimen. Increase atorvastatin to 80 mg daily Patient has a history of atrial fibrillation status post ablation and history of DVT. Resume Eliquis with negative endoscopy. Excellent blood pressure control. Continue current regimen. Urine culture revealed enterococci. Will discontinue cephalosporin and initiate penicillin based treatment. 06/30/2020 Stable for discharge per nephrology and cardiology. - Additional Information Resuscitation Status: Full Code Discharge Diet: Cardiac, Diabetic Discharge Activity: Activity As Tolerated, Balance Activity w/Rest Referrals: MARQUITA BENOIT FNP-C [NO LOCAL MD] - ([phone]. Jul 06 at 2:30 pm) Prescriptions: Amoxicillin Trihydrate [Amoxil 500 mg Capsule] 500 mg PO Q12 8 Days #16 capsule Bumetanide [Bumex 1 mg Tablet] 3 mg PO BID #90 tablet Sacubitril/Valsartan [Entresto 24 mg/26 mg Tablet] 1 tab PO Q12 15 Days #30 tablet Potassium Chloride 20 meq PO BID #30 tablet.er Calcitriol [Rocaltrol 0.25 mcg Capsule] 0.25 mcg PO TUTHSA #12 capsule Home Medications: Ascorbic Acid [Vitamin C] 500 mg PO DAILY 06/27/20 Aspirin [Lo-Dose Aspirin EC] 81 mg PO DAILY 06/27/20 Atorvastatin Calcium [Lipitor 80 mg Tablet] 80 mg PO QHS 12/06/20 Baclofen [Baclofen 10 mg Tablet] 10 mg PO QIDP PRN 06/27/20 Buspirone HCl 7.5 mg PO BID 06/27/20 Carvedilol [Coreg 3.125 mg Tablet] 3.125 mg PO Q12 06/27/20 Citalopram Hydrobromide [Citalopram HBr] 40 mg PO DAILY 06/27/20 Ergocalciferol (Vitamin D2) [Drisdol 50,000 unit (1.25MG) Capsule] 1 cap PO MO@1000 06/27/20 Fenofibrate Nanocrystallized [Tricor 145 mg Tablet] 145 mg PO DAILY 06/27/20 Gabapentin [Neurontin 300 mg Capsule] 600 mg PO Q6 06/27/20 Insulin Glargine,Hum.rec.anlog [Lantus Insulin 100 Unit/1 ml 10 ml] 20 unit SUBCUT QHS 06/27/20 Insulin Regular, Human [Humulin R (Reg) Insulin 100 unit/mL] 8 unit SUBCUT AC 06/27/20 Magnesium Oxide [Mag-Ox 400 mg Tablet] 400 mg PO BID 06/27/20 Metoclopramide HCl [Reglan 10 mg Tablet] 10 mg PO ACHS 06/27/20 Multivitamin [Tab-A-Mariela (Multiple Vitamin) Tablet] 1 tab PO DAILY 06/27/20 Nitroglycerin [Nitrostat 0.4 mg (1/150 Gr) Tabs 25/Bottle] 1 tab SL Q5MP PRN 06/27/20 [place]-3 Acid Ethyl Esters [Lovaza 1 gm Capsule] 4 gm PO DAILY 06/27/20 Ondansetron [Zofran Odt 4 mg Tablet] 8 mg PO Q6HP PRN 06/27/20 Oxycodone HCl [Oxy-Ir 5 mg Tablet] 10 mg PO TIDP PRN 06/27/20 Pantoprazole Sodium [Protonix [address] Tablet] 40 mg PO DAILY 06/27/20 Rivaroxaban [Xarelto] 20 mg PO QPM 06/27/20 Silver Sulfadiazine [Silvadene 1% Cream 25 gm] 1 applic TOP DAILY 06/27/20 Trazodone HCl [Desyrel 50 mg Tablet] 50 mg PO QHS 06/27/20 Amoxicillin Trihydrate [Amoxil 500 mg Capsule] 500 mg PO Q12 8 Days #16 capsule 06/30/20 Aspirin [Aspirin 81 mg Chewable Tablet] 81 mg PO DAILY tab.chew 06/30/20 Atorvastatin Calcium [Lipitor 80 mg Tablet] 80 mg PO QHS tablet 06/30/20 Bumetanide [Bumex 1 mg Tablet] 3 mg PO BID #90 tablet 06/30/20 Calcitriol [Rocaltrol 0.25 mcg Capsule] 0.25 mcg PO TUTHSA #12 capsule 06/30/20 Carvedilol [Coreg 3.125 mg Tablet] 3.125 mg PO Q12 tablet 06/30/20 Citalopram Hydrobromide [Celexa 20 mg Tablet] 40 mg PO DAILY tablet 06/30/20 Ferrous Sulfate [Feosol 325 mg Tablet] 325 mg PO BID tablet 06/30/20 Oxycodone HCl [Oxy-Ir 5 mg Tablet] 5 mg PO Q8HP PRN tablet 06/30/20 Pantoprazole Sodium [Protonix [address] Tablet] 40 mg PO Q6AM tablet.dr 06/30/20 Potassium Chloride 20 meq PO BID #30 tablet.er 06/30/20 Sacubitril/Valsartan [Entresto 24 mg/26 mg Tablet] 1 tab PO Q12 15 Days #30 tablet 06/30/20 History of Present Illiness History of Present Illness: HELDER SERNA is a 49 year old female with a history of systolic heart failure, hypertension, hyperlipidemia, type 2 diabetes, A. fib status post ablation, CAD status post CABG, peripheral arterial disease status post right BKA and left AKA and CKD stage IIIb who presents with 2 days duration of worsening of shortness of breath with associated orthopnea. Patient also reports that she has been feeling fatigued and lethargic. She endorses dysuria and increased frequency of urination. She has also been feeling nauseous and had few episodes of nonbloody and nonbilious vomiting. She has cough productive of scanty whitish sputum. She denies any fever, chills, chest pain, palpitation, dizziness or any change in her bowel habit. She denies any hematochezia, melena or hematemesis. She denies bleeding from any site. Hospital Course Hospital Course: As above Physical Exam Vital Signs: Temp Pulse Resp BP Pulse Ox 97.9 F 65 17 125/64 96 06/30/20 07:32 06/30/20 07:32 06/30/20 07:32 06/30/20 07:32 06/30/20 07:32 Intake & Output 06/29/20 06/30/20 07/01/20 06:59 06:59 06:59 Intake Total 2690 3502 Output Total 4500 3675 Balance -1810 -173 Weight 72.7 kg 72.7 kg General appearance: PRESENT: no acute distress Respiratory exam: PRESENT: clear to auscultation amaya, symmetrical, unlabored. ABSENT: rales, rhonchi, tachypnea, wheezes Cardiovascular exam: PRESENT: RRR, +S1, +S2 GI/Abdominal exam: PRESENT: normal bowel sounds, soft. ABSENT: tenderness Results Laboratory Results: WBC 6.7 10^3/uL (4.0-10.5) 06/30/20 04:30 RBC 3.52 10^6/uL (3.72-5.28) L 06/30/20 04:30 Hgb 10.4 g/dL (12.0-15.5) L 06/30/20 04:30 Hct 30.5 % (36.0-47.0) L 06/30/20 04:30 MCV 87 fl (80-97) 06/30/20 04:30 MCH 29.4 pg (27.0-33.4) 06/30/20 04:30 MCHC 34.0 g/dL (32.0-36.0) 06/30/20 04:30 RDW 19.3 % (11.5-14.0) H 06/30/20 04:30 Plt Count 210 10^3/uL (150-450) 06/30/20 04:30 Lymph % (Auto) 12.6 % (13-45) L 06/30/20 04:30 [place] % (Auto) 5.5 % (3-13) 06/30/20 04:30 Eos % (Auto) 1.5 % (0-6) 06/30/20 04:30 Baso % (Auto) 0.4 % (0-2) 06/30/20 04:30 Reticulocyte # 0.114 10^6/uL (0.028-0.122) 06/28/20 06:12 Absolute Neuts (auto) 5.3 10^3/uL (1.7-8.2) 06/30/20 04:30 Absolute Lymphs (auto) 0.8 10^3/uL (0.5-4.7) 06/30/20 04:30 Absolute Monos (auto) 0.4 10^3/uL (0.1-1.4) 06/30/20 04:30 Absolute Eos (auto) 0.1 10^3/uL (0.0-0.6) 06/30/20 04:30 Absolute Basos (auto) 0.0 10^3/uL (0.0-0.2) 06/30/20 04:30 Total Counted 100 06/27/20 02:00 Seg Neutrophils % 80.0 % (42-78) H 06/30/20 04:30 Seg Neuts % (Manual) 86 % (42-78) H 06/27/20 02:00 Band Neutrophils % 7 % (3-5) H 06/27/20 02:00 Lymphocytes % (Manual) 5 % (13-45) L 06/27/20 02:00 Monocytes % (Manual) 2 % (3-13) L 06/27/20 02:00 Eosinophils % (Manual) 0 % (0-6) 06/27/20 02:00 Basophils % (Manual) 0 % (0-2) 06/27/20 02:00 Abs Neuts (Manual) 11.3 10^3/uL (1.7-8.2) H 06/27/20 02:00 Abs Lymphs (Manual) 0.6 10^3/uL (0.5-4.7) 06/27/20 02:00 Abs Monocytes (Manual) 0.2 10^3/uL (0.1-1.4) 06/27/20 02:00 Absolute Eos (Manual) 0.0 10^3/uL (0.0-0.6) 06/27/20 02:00 Abs Basophils (Manual) 0.0 10^3/uL (0.0-0.2) 06/27/20 02:00 Platelet Comment ADEQUATE 06/27/20 02:00 Polychromasia 2+ 06/27/20 02:00 Anisocytosis 2+ 06/27/20 02:00 Retic Count (auto) 3.72 % (0.66-2.85) H 06/28/20 06:12 VBG pH 7.39 (7.30-7.42) 06/27/20 10:32 VBG pCO2 46.4 mmHg (35-63) 06/27/20 10:32 VBG HCO3 27.6 mmol/L (20-32) 06/27/20 10:32 VBG Base Excess 2.4 mmol/L 06/27/20 10:32 Sodium 137.4 mmol/L (137-145) 06/30/20 04:30 Potassium 3.4 mmol/L (3.6-5.0) L 06/30/20 04:30 Chloride 95 mmol/L (98-107) L 06/30/20 04:30 Carbon Dioxide 30 mmol/L (22-30) 06/30/20 04:30 Anion Gap 12 (5-19) 06/30/20 04:30 BUN 54 mg/dL (7-20) H D 06/30/20 04:30 Creatinine 1.35 mg/dL (0.52-1.25) H 06/30/20 04:30 Est GFR ( Amer) 50 (>60) L 06/30/20 04:30 Est GFR (MDRD) Non-Af 42 (>60) L 06/30/20 04:30 Glucose 167 mg/dL (75-110) H 06/30/20 04:30 POC Glucose 179 mg/dL (70-110) H 06/30/20 11:02 Calcium 9.1 mg/dL (8.4-10.2) 06/30/20 04:30 Phosphorus 5.3 mg/dL (2.5-4.5) H 06/28/20 06:12 Magnesium 2.3 mg/dL (1.6-2.3) 06/29/20 04:50 Iron 61.3 ug/dL (37-170) 06/28/20 06:12 TIBC 393 ug/dL (250-450) 06/28/20 06:12 % Saturation 16 % 06/28/20 06:12 Ferritin 401.00 ng/mL (11.1-264.0) H 06/28/20 06:12 Total Bilirubin 0.7 mg/dL (0.2-1.3) 06/27/20 02:00 Direct Bilirubin 0.4 mg/dL (0.0-0.4) 06/27/20 02:00 Neonat Total Bilirubin Not Reportable 06/27/20 02:00 Neonat Direct Bilirubin Not Reportable 06/27/20 02:00 Neonat Indirect Bili Not Reportable 06/27/20 02:00 AST 24 U/L (14-36) 06/27/20 02:00 ALT 11 U/L (<35) 06/27/20 02:00 Alkaline Phosphatase 54 U/L (38-126) 06/27/20 02:00 Troponin I 0.183 ng/mL 06/27/20 22:57 NT-Pro-B Natriuret Pep 83893 pg/mL (<125) H 06/27/20 02:00 Total Protein 7.1 g/dL (6.3-8.2) 06/27/20 02:00 Albumin 3.8 g/dL (3.5-5.0) 06/27/20 02:00 Vitamin B12 363.0 pg/mL (239-931) 06/28/20 06:12 Folate 12.50 ng/mL (>2.76) 06/28/20 06:12 PTH Intact 152.6 pg/mL (10.0-65.0) H 06/29/20 04:50 Urine Color YELLOW 06/27/20 03:40 Urine Appearance SLIGHTLY-CLOUDY 06/27/20 03:40 Urine pH 6.0 (5.0-9.0) 06/27/20 03:40 Ur Specific [place] 1.015 06/27/20 03:40 Urine Protein 100 mg/dL (NEGATIVE) H 06/27/20 03:40 Urine Glucose (UA) NEGATIVE mg/dL (NEGATIVE) 06/27/20 03:40 Urine Ketones NEGATIVE mg/dL (NEGATIVE) 06/27/20 03:40 Urine Blood NEGATIVE (NEGATIVE) 06/27/20 03:40 Urine Nitrite NEGATIVE (NEGATIVE) 06/27/20 03:40 Urine Bilirubin NEGATIVE (NEGATIVE) 06/27/20 03:40 Urine Urobilinogen NEGATIVE mg/dL (<2.0) 06/27/20 03:40 Ur Leukocyte Esterase MODERATE (NEGATIVE) H 06/27/20 03:40 Urine WBC (Auto) 84 /HPF 06/27/20 03:40 Urine RBC (Auto) 4 /HPF 06/27/20 03:40 U Hyaline Cast (Auto) 2 /LPF 06/27/20 03:40 Urine Bacteria (Auto) 1+ /HPF 06/27/20 03:40 Squamous Epi Cells Auto 1 /HPF 06/27/20 03:40 Urine Mucus (Auto) RARE /LPF 06/27/20 03:40 Urine Creatinine 44.7 mg/dL (15-278) 06/28/20 12:42 Protein/Creatinin Ratio 1.6 mg/mg (0.0-0.2) H 06/28/20 12:42 Urine Total Protein 70.3 mg/dL (<12) H 06/28/20 12:42 Urine Ascorbic Acid 40 (NEGATIVE) H 06/27/20 03:40 Stool Occult Blood NEGATIVE (NEGATIVE) 06/28/20 16:50 COVID-19 Source Cancelled 06/28/20 16:55 COVID-19 ([facility]) Cancelled 06/28/20 16:55 Influenza A (RT-PCR) NEGATIVE (NEGATIVE) 06/28/20 16:55 Influenza B (RT-PCR) NEGATIVE (NEGATIVE) 06/28/20 16:55 RSV (RT-PCR) NEGATIVE (NEGATIVE) 06/28/20 16:55 SARS-CoV-2 Rap RNA(RT-PCR) NEGATIVE (NEGATIVE) 06/28/20 16:55 Blood Type O POSITIVE 06/27/20 18:50 Antibody Screen NEGATIVE 06/27/20 18:50 Crossmatch See Detail 06/27/20 18:50 06/27/20 06/27/20 06/27/20 02:00 02:00 18:25 Troponin I 0.074 0.221 NT-Pro-B Natriuret Pep 30135 H 06/27/20 22:57 Troponin I 0.183 NT-Pro-B Natriuret Pep Impressions: Chest X-Ray 06/27/20 01:40 IMPRESSION: Moderate central edema pattern. Interval worsening. Renal Ultrasound 06/28/20 00:00 IMPRESSION: NORMAL RENAL AND BLADDER ULTRASOUND. Plan Health Concerns: Multiple comorbidities Plan of Treatment: As above Goals: Improved control of heart failure and renal failure Time Spent: Greater than 30 Minutes Stroke Is this a Stroke Patient?: No Acute Heart Failure Is this a Heart Failure Patient?: Yes Documentation of LVEF assessment?: Yes LVEF: LVEF Greater Than 40% Anticoagulant Therapy: N/A Discharged on Evidence-Based Beta Blockers: Yes Discharged on ARNI?: Yes Discharged on ARB?: N/A-Discharged on ARNI Discharged on ACEI?: N/A Discharged on ARB For LVEF <35%, discharged on Aldosterone Antagonist?: N/A (LVEF > or = 35%) Reason(s) not discharged on Aldosterone Antagonist: Renal dysfunction (creatinine >2.5 mg/dL in men or 2.0 mg/dL in women), Other Aldosterone Antagonist Reason - Other: Temporarily on hold. Defer to cardiology follow-up Follow-up Appointment scheduled within 7 days?: Yes
[2020-06-30 12:54] VITALS: BP 141/61
[2020-06-30] MEDS ORDERED: POTASSIUM CHLORIDE 10 MEQ TABLET.ER PO SCH (22:00)
== END 2020-06-30 14:08 | disposition home or self-care (01) | DRG 291 ==
LOC: ER 01:06 → EH 07:09 → 4W 09:56
PROVIDERS: ADMIT Student in an Organized Health Care Education/Training Program; ATTEND Hospitalist
PROC: 30233N1 Transfusion of Nonautologous Red Blood Cells into Peripheral Vein, Percutaneous Approach (ICD-10-PCS; 2020-06-27)
PROC: 0DJ08ZZ Inspection of Upper Intestinal Tract, Via Natural or Artificial Opening Endoscopic (ICD-10-PCS; principal; 2020-06-29 07:30)
PROC: 0DJD8ZZ Inspection of Lower Intestinal Tract, Via Natural or Artificial Opening Endoscopic (ICD-10-PCS; 2020-06-29 07:30)
DX: I13.0 Hypertensive heart and chronic kidney disease with heart failure and stage 1 through stage 4 chronic kidney disease, or unspecified chronic kidney disease (principal); I50.43 Acute on chronic combined systolic (congestive) and diastolic (congestive) heart failure; J96.01 Acute respiratory failure with hypoxia; N17.9 Acute kidney failure, unspecified; N39.0 Urinary tract infection, site not specified; I25.810 Atherosclerosis of coronary artery bypass graft(s) without angina pectoris; E87.1 Hypo-osmolality and hyponatremia; N18.32 Chronic kidney disease, stage 3b; E11.22 Type 2 diabetes mellitus with diabetic chronic kidney disease; E11.65 Type 2 diabetes mellitus with hyperglycemia; D63.1 Anemia in chronic kidney disease; B95.2 Enterococcus as the cause of diseases classified elsewhere; E78.2 Mixed hyperlipidemia; E11.51 Type 2 diabetes mellitus with diabetic peripheral angiopathy without gangrene; E11.40 Type 2 diabetes mellitus with diabetic neuropathy, unspecified; J44.9 Chronic obstructive pulmonary disease, unspecified; K21.9 Gastro-esophageal reflux disease without esophagitis; E83.41 Hypermagnesemia; E83.9 Disorder of mineral metabolism, unspecified; R77.8 Other specified abnormalities of plasma proteins; Z20.828 Contact with and (suspected) exposure to other viral communicable diseases; K44.9 Diaphragmatic hernia without obstruction or gangrene; K29.70 Gastritis, unspecified, without bleeding; I25.5 Ischemic cardiomyopathy; E66.01 Morbid (severe) obesity due to excess calories; Z86.79 Personal history of other diseases of the circulatory system; I25.2 Old myocardial infarction; Z89.511 Acquired absence of right leg below knee; Z95.1 Presence of aortocoronary bypass graft; Z89.612 Acquired absence of left leg above knee; Z79.82 Long term (current) use of aspirin; Z79.4 Long term (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 of insulin; Z79.01 Long term (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 of anticoagulants; Z86.718 Personal history of other venous thrombosis and embolism; Z90.49 Acquired absence of other specified parts of digestive tract; Z79.899 Other long term (current) drug therapy; Z87.891 Personal history of nicotine dependence; Z87.11 Personal history of peptic ulcer disease; Z86.010 Personal history of colon polyps; Z98.890 Other specified postprocedural states; Z86.73 Personal history of transient ischemic attack (TIA), and cerebral infarction without residual deficits; Z87.01 Personal history of pneumonia (recurrent); Z82.49 Family history of ischemic heart disease and other diseases of the circulatory system
CPT/HCPCS: 36415; 36430; 43235; 45378; 71045; 76770; 80048; 80053; 81001; 813; 82272; 82570; 82607; 82728; 82746; 82803; 82962; 83540; 83550; 83735; 83880; 83970; 84100; 84156; 84484; 85025; 85045; 86850; 86900; 86901; 86920; 87040; 87086; 87088; 87186; 93005; 93010; 93306; 96374; 96375; 99285; 0241U; C9803; J0696; J1815; J1940; J2405; J2704; J3490; P9016

== ENCOUNTER 2020-07-18 08:46 | Inpatient (IN) | payer MEDICARE, MEDICAID ==
[2020-07-18 11:03] LABS: ABSOLUTE BASOPHILS # (AUTO) 0.1 10^3/uL (0.0-0.2); ABSOLUTE LYMPHOCYTES (AUTO) 0.7 10^3/uL (0.5-4.7); ABSOLUTE MONOCYTES (AUTO) 0.3 10^3/uL (0.1-1.4); ABSOLUTE NEUT (AUTO) 8.7 10^3/uL (1.7-8.2); BASOPHILS % (AUTO) 0.6 % (0-2); EOSINOPHILS % (AUTO) 0.5 % (0-6); HEMATOCRIT 25.4 % (36.0-47.0); HEMOGLOBIN 8.6 g/dL (12.0-15.5); LYMPHOCYTES % (AUTO) 7.5 % (13-45); MEAN CORPUSCULAR HGB CONC 33.9 g/dL (32.0-36.0); MEAN CORPUSCULAR VOLUME 86 fl (80-97); MONOCYTES % (AUTO) 2.7 % (3-13); PLATELET COUNT 249 10^3/uL (150-450); RED BLOOD COUNT 2.97 10^6/uL (3.72-5.28); RED CELL DISTRIBUTION WIDTH 18.4 % (11.5-14.0); SEGMENTED NEUTROPHILS % (AUTO) 88.7 % (42-78); TOTAL CELLS COUNTED % (AUTO) 100 %; WHITE BLOOD COUNT 9.8 10^3/uL (4.0-10.5)
--- NOTE | 2020-07-18 11:20 | ER Document Report ---
ED General - General Chief Complaint: Vomiting Stated Complaint: VOMITING Time Seen by Provider: 07/18/20 10:54 Primary Care Provider: MARQUITA BENOIT FNP-C [Primary Care Provider] - Follow up as needed TRAVEL OUTSIDE OF THE [place] IN LAST 30 DAYS: No - HPI Notes: Chief complaint: Vomiting and exacerbation of chronic pain. History of present illness: This is a 49-year-old female with longstanding history of insulin-dependent diabetes mellitus, peripheral vascular disease, s tage III kidney disease, coronary artery disease, congestive heart failure, chronic pain syndrome and diabetic gastroparesis who was discharged from the hospitalist service here on 06/30/2020 now returning for 24-hour history of vomiting which she thinks may be related to a urinary tract infection. Patient saw her primary care provider 1 week ago for lower UTI symptoms. She was started on Levaquin and has taken about half of this medication which was prescribed for a 10-day course. She started vomiting last night. She denies fever chills. She has chronic back pain and lower extremity pain and she says she has been unable to take her usual oxycodone because of the vomiting and she is having exacerbation of pain in both areas. Past surgical procedures have included bilateral lower extremity amputations and CABG. Allergies to amlodipine, isosorbide and zolpidem. Patient is a former smoker and says that she quit smoking in 2009. Home Medications: Ascorbic Acid [Vitamin C] 500 mg PO DAILY 06/27/20 Aspirin [Lo-Dose Aspirin EC] 81 mg PO DAILY 06/27/20 Atorvastatin Calcium [Lipitor 80 mg Tablet] 80 mg PO QHS 06/27/20 Baclofen [Baclofen 10 mg Tablet] 10 mg PO QIDP PRN 06/27/20 Buspirone HCl 7.5 mg PO BID 06/27/20 Carvedilol [Coreg 3.125 mg Tablet] 3.125 mg PO Q12 06/27/20 Citalopram Hydrobromide [Citalopram HBr] 40 mg PO DAILY 06/27/20 Ergocalciferol (Vitamin D2) [Drisdol 50,000 unit (1.25MG) Capsule] 1 cap PO MO@1000 06/27/20 Fenofibrate Nanocrystallized [Tricor 145 mg Tablet] 145 mg PO DAILY 06/27/20 Gabapentin [Neurontin 300 mg Capsule] 600 mg PO Q6 06/27/20 Insulin Glargine,Hum.rec.anlog [Lantus Insulin 100 Unit/1 ml 10 ml] 20 unit SUBCUT QHS 06/27/20 Insulin Regular, Human [Humulin R (Reg) Insulin 100 unit/mL] 8 unit SUBCUT AC 06/27/20 Magnesium Oxide [Mag-Ox 400 mg Tablet] 400 mg PO BID 06/27/20 Metoclopramide HCl [Reglan 10 mg Tablet] 10 mg PO ACHS 06/27/20 Multivitamin [Tab-A-Mariela (Multiple Vitamin) Tablet] 1 tab PO DAILY 06/27/20 Nitroglycerin [Nitrostat 0.4 mg (1/150 Gr) Tabs 25/Bottle] 1 tab SL Q5MP PRN 06/27/20 [place]-3 Acid Ethyl Esters [Lovaza 1 gm Capsule] 4 gm PO DAILY 06/27/20 Ondansetron [Zofran Odt 4 mg Tablet] 8 mg PO Q6HP PRN 06/27/20 Oxycodone HCl [Oxy-Ir 5 mg Tablet] 10 mg PO TIDP PRN 06/27/20 Pantoprazole Sodium [Protonix [address] Tablet] 40 mg PO DAILY 06/27/20 Rivaroxaban [Xarelto] 20 mg PO QPM 06/27/20 Silver Sulfadiazine [Silvadene 1% Cream 25 gm] 1 applic TOP DAILY 06/27/20 Trazodone HCl [Desyrel 50 mg Tablet] 50 mg PO QHS 06/27/20 Amoxicillin Trihydrate [Amoxil 500 mg Capsule] 500 mg PO Q12 8 Days #16 capsule 06/30/20 Aspirin [Aspirin 81 mg Chewable Tablet] 81 mg PO DAILY tab.chew 06/30/20 Atorvastatin Calcium [Lipitor 80 mg Tablet] 80 mg PO QHS tablet 06/30/20 Bumetanide [Bumex 1 mg Tablet] 3 mg PO BID #90 tablet 06/30/20 Calcitriol [Rocaltrol 0.25 mcg Capsule] 0.25 mcg PO TUTHSA #12 capsule 06/30/20 Carvedilol [Coreg 3.125 mg Tablet] 3.125 mg PO Q12 tablet 06/30/20 Citalopram Hydrobromide [Celexa 20 mg Tablet] 40 mg PO DAILY tablet 06/30/20 Ferrous Sulfate [Feosol 325 mg Tablet] 325 mg PO BID tablet 06/30/20 Oxycodone HCl [Oxy-Ir 5 mg Tablet] 5 mg PO Q8HP PRN tablet 06/30/20 Pantoprazole Sodium [Protonix [address] Tablet] 40 mg PO Q6AM tablet.dr 06/30/20 Potassium Chloride 20 meq PO BID #30 tablet.er 06/30/20 Sacubitril/Valsartan [Entresto 24 mg/26 mg Tablet] 1 tab PO Q12 15 Days #30 tablet 06/30/20 - Related Data Allergies/Adverse Reactions: amlodipine Allergy (Severe, Verified 07/18/20 09:37) Hallucinations isosorbide [From Imdur] Allergy (Intermediate, Verified 07/18/20 09:37) RASH zolpidem [From Ambien] Adverse Reaction (Severe, Verified 07/18/20 09:37) Hallucinations Home Medications: diabetic meds, on antibiotics for uti Past Medical History - General Information source: Patient, [facility], [facility] Records - Social History Smoking Status: Former Smoker Chew tobacco use (# tins/day): No Frequency of alcohol use: None Drug Abuse: None Family History: None, Reviewed & Not Pertinent, CAD, CVA, DM, Hypertension, Malignancy, Other - Kidney disease Patient has homicidal ideation: No - Past Medical History Cardiac Medical History: Reports: Hx Atrial Fibrillation, Hx Congestive Heart Failure, Hx Coronary Artery Disease, Hx DVT, Hx Heart Attack - x3 per patient, Hx Hypercholesterolemia, Hx Hypertension, Hx Peripheral Vascular Disease Pulmonary Medical History: Reports: Hx Bronchitis, Hx COPD, Hx Pneumonia Neurological Medical History: Denies: Hx Migraine, Hx Seizures Endocrine Medical History: Reports: Hx Diabetes Mellitus Type 2. Denies: Hx Diabetes Mellitus Type 1, Hx Hyperthyroidism, Hx Hypothyroidism Renal/ Medical History: Reports: Hx Hemodialysis - Short-term for fluid overload only, Hx Kidney Stones, Hx Renal Insufficiency. Denies: Hx Peritoneal Dialysis GI Medical History: Reports: Hx Gastroesophageal Reflux Disease, Hx Hiatal Hernia, Hx Irritable Bowel. Denies: Hx Cirrhosis, Hx Crohn's Disease, Hx Hepatitis, Hx Ulcerative Colitis Musculoskeletal Medical History: Reports Hx Arthritis, Denies Hx Fibromyalgia, Denies Hx Gout, Reports Hx Musculoskeletal Deformity, Reports Hx Musculoskeletal Trauma Skin Medical History: Reports Hx Cellulitis, Denies Hx Eczema, Denies Hx Psoriasis Psychiatric Medical History: Reports: Hx Anxiety, Hx Depression Infectious Medical History: Denies: Hx Hepatitis Past Surgical History: Reports: Hx Abdominal Surgery, Hx Cardiac Catheterization, Hx Cardiac Surgery - CABG, Hx Section - x2, Hx Cholecystectomy, Hx Coronary Artery Bypass Graft - x3, Hx Herniorrhaphy - Ventral hernia, Hx Orthopedic Surgery - Knee surgery, Hx Tubal Ligation, Hx Vascular Surgery - Left iliofemoral bypass, Other - Peripheral nerve stimulator implantation - Immunizations Immunizations up to date: Yes Hx Diphtheria, Pertussis, Tetanus Vaccination: Yes Hx Pneumococcal Vaccination: 07/23/09 Review of Systems - Review of Systems Notes: Constitutional: Negative for fever. HENT: Negative for sore throat. Eyes: Negative for visual changes. Cardiovascular: Negative for chest pain. Respiratory: Negative for shortness of breath. Gastrointestinal: As per HPI Genitourinary: Dysuria and urinary frequency. Musculoskeletal: As per HPI. Skin: Negative for rash. Neurological: Negative for headaches, focal weakness or numbness. Chronic neuropathic pain both lower extremities. 10 point ROS negative except as marked above and in HPI. Physical Exam - Vital signs Vitals: Temp Pulse Resp BP Pulse Ox 98.3 F 81 16 105/44 L 95 07/18/20 08:53 07/18/20 08:53 07/18/20 08:53 07/18/20 08:53 07/18/20 08:53 - Notes Notes: GENERAL: Chronically ill-appearing middle-aged female. Vomiting into a basin at this time. SKIN: Good turgor no rashes. HEAD: Normocephalic atraumatic. EYES: PERRLA. EOMI. Conjunctivae and sclerae clear. EARS: CANALS AND TMS CLEAR. NOSE: CLEAR. MOUTH: Moist mucosa. Good dentition. No stridor or edema. No drooling. NECK: Supple. No masses or thyromegaly. No adenopathy. Carotids 2+ without bruits. No JVD. BACK: Symmetrical without tenderness. CHEST: CABG scar present. Respirations unlabored. Breath sounds clear and symmetrical. HEART: Regular rhythm. No murmur gallop or rub. ABDOMEN: Soft nontender without masses, organomegaly or rebound. Bowel sounds normally active. No bruits. GENITALIA: Deferred. EXTREMITIES: BKA bilaterally NEUROLOGICAL: GCS 15. Alert and oriented x3. Fluent speech. Cranial nerves II through XII intact. Sensorimotor and cerebellar normal. Normal tone. PSYCHIATRIC: Appropriate affect. Course - Re-evaluation Re-evalutation: 07/18/20 13:53 This lady is badly dehydrated and has ongoing vomiting probably related to diabetic gastroparesis. She has acute kidney injury with creatinine in excess of 3. Her potassium and CO2 are normal. Her BUN is over 100. She is getting IV hydration. She will be admitted to telemetry by the hospitalist service and has been accepted by Dr. Blankenship. - Vital Signs Vital signs: Temp Pulse Resp BP Pulse Ox 98.3 F 81 16 105/44 L 95 07/18/20 08:53 07/18/20 08:53 07/18/20 08:53 07/18/20 08:53 07/18/20 08:53 - Laboratory Results Result Diagrams: 07/18/20 10:42 07/18/20 10:42 Laboratory Results Interpreted: 07/18/20 07/18/20 07/18/20 10:42 10:42 13:01 RBC 2.97 L Hgb 8.6 L Hct 25.4 L RDW 18.4 H Lymph % (Auto) 7.5 L [place] % (Auto) 2.7 L Absolute Neuts (auto) 8.7 H Seg Neutrophils % 88.7 H Sodium 136.2 L Chloride 97 L BUN 128 H Creatinine 3.96 H Est GFR ( Amer) 15 L Est GFR (MDRD) Non-Af 12 L Glucose 206 H Urine Protein 100 H Urine Blood MODERATE H Urine Ascorbic Acid 40 H Critical Laboratory Results Reviewed: Yes Attending or Supervising Physician who Reviewed Labs: RUDOLPH LANDIN - Radiology Results Critical Radiology Results Reviewed: No Critical Results - EKG Interpretation by Me Additional EKG results interpreted by me: 07/18/20 12:20 Twelve-lead EKG reviewed by me contemporaneously: 1213 hrs. Indication for study: Vomiting Rhythm: Normal sinus Rate: 79 Intervals: Normal QRS axis: -[address]/T wave changes: Nonspecific Comparison with prior tracing: Minimal interval change compared with prior tracing 06/27/2020 Interpretation: Nonspecific T wave changes. Leftward axis. Discharge - Discharge Clinical Impression: Acute kidney injury, Dehydration, Diabetic gastroparesis Condition: Fair Disposition: ADMITTED INPATIENT Admitting Provider: Pattie (Hospitalist) Unit Admitted: Telemetry Referrals: MARQUITA BENOIT FNP-C [Primary Care Provider] - Follow up as needed
[2020-07-18 11:27] LABS: ALBUMIN 3.7 g/dL (3.5-5.0); ALKALINE PHOSPHATASE 51 U/L (38-126); ANION GAP 12 (5-19); ASPARTATE AMINO TRANSFERASE 17 U/L (14-36); BILIRUBIN,DIRECT 0.3 mg/dL (0.0-0.4); BILIRUBIN,TOTAL 0.5 mg/dL (0.2-1.3); CALCIUM 9.2 mg/dL (8.4-10.2); CARBON DIOXIDE 27 mmol/L (22-30); CHLORIDE 97 mmol/L (98-107); GLUCOSE 206 mg/dL (75-110); TOTAL PROTEIN 7.1 g/dL (6.3-8.2)
[2020-07-18] MEDS ORDERED: NORMAL SALINE 1000 ML 1,000 ML IV ONE ×2 (11:29→13:42)
[2020-07-18] MEDS ORDERED: FENTANYL CITRATE INJ/PF 100 MCG/2 ML AMPUL IV ONE (11:30)
[2020-07-18] MEDS ORDERED: METOCLOPRAMIDE HCL INJ/PF 10 MG/2 ML SDV IV ONE (11:30)
[2020-07-18 11:35] LABS: BLOOD UREA NITROGEN 128 mg/dL (7-20)
[2020-07-18 13:30] LABS: APPEARANCE,URINE CLEAR; BILIRUBIN,URINE NEGATIVE (NEGATIVE); COLOR,URINE YELLOW; GLUCOSE, URINE NEGATIVE (NEGATIVE); KETONES,URINE NEGATIVE (NEGATIVE); LEUKOCYTE ESTERASE,URINE NEGATIVE (NEGATIVE); NITRITE,URINE NEGATIVE (NEGATIVE); PROTEIN,URINE 100 mg/dL (NEGATIVE); URINE SPECIFIC GRAVITY 1.015; UROBILINOGEN,URINE NEGATIVE mg/dL (<2.0)
[2020-07-18] MEDS ORDERED: ONDANSETRON HCL INJ/PF 4 MG/2 ML SDV IV ONE (13:43)
--- NOTE | 2020-07-18 14:03 | EKG REPORT ---
SEVERITY:- ABNORMAL ECG - SINUS RHYTHM NONSPECIFIC INTRAVENTRICULAR CONDUCTION DELAY BORDERLINE ST DEPRESSION, LATERAL LEADS : Confirmed by: Rojas Jo MD 18-Jul-2020 14:02:58
--- NOTE | 2020-07-18 15:10 | RADIOLOGY REPORT (SQ) ---
EXAM DESCRIPTION: CHEST SINGLE VIEW IMAGES COMPLETED DATE/TIME: 07/18/2020 1:45 pm REASON FOR STUDY: chf COMPARISON: 06/27/2020 EXAM PARAMETERS: NUMBER OF VIEWS: One view. TECHNIQUE: Single frontal radiographic view of the chest acquired. RADIATION DOSE: NA LIMITATIONS: None. FINDINGS: LUNGS AND PLEURA: Improved aeration in both lungs. No focal consolidation or pleural effu teresita. No pneumothorax. MEDIASTINUM AND HILAR STRUCTURES: No masses. Contour normal. HEART AND VASCULAR STRUCTURES: Postoperative changes of prior CABG. Mild cardiomegaly. No pulmonary vascular congestion. BONES: No acute findings. HARDWARE: None in the chest. OTHER: No other significant finding. IMPRESSION: NO ACUTE RADIOGRAPHIC FINDING IN THE CHEST. TECHNICAL DOCUMENTATION: JOB ID: [id number] 2010 [employer]- All Rights Reserved Reading location - IP/workstation name: [email or web address]
[2020-07-18] MEDS ORDERED: GLUCAGON,HUMAN RECOMB 1 MG INJ SUBCUT PRN (16:10)
[2020-07-18] MEDS ORDERED: DEXTROSE 40% GEL 15 GM TUBE PO PRN ×2 (16:10)
[2020-07-18] MEDS ORDERED: DEXTROSE 50%-WATER 25 GM/50 ML DISP.SYRIN IV PRN ×2 (16:10)
[2020-07-18] MEDS ORDERED: IPRATROPIUM/ALBUTEROL 0.5-2.5 MG/3 ML AMPUL NEB PRN (16:10)
[2020-07-18] MEDS ORDERED: DIPHENHYDRAMINE HCL 50 MG/ML VIAL IV PRN (16:16)
[2020-07-18] MEDS ORDERED: RINGERS SOLUTION,LACTATED 1,000 ML IV PRN (16:20)
--- NOTE | 2020-07-18 17:39 | PDOC H&P ---
History of Present Illness Admission Date/PCP: 07/18/20 14:04 SALOMON RODRIGUEZ Patient complains of: vomiting History of Present Illness: HELDER SERNA is a 49 year old female, has medical history of A. fib on Xarelto status post ablation, CHF, DVT, hypertension, hyperlipidemia, type 2 diabetes, coronary artery disease status post CABG, PAD status post right BKA and left AKA who came in the ED today due to vomiting that started this morning. According to the patient she is being treated for a UTI and she is on Levaquin for 3 days now. About 1 week ago she had dysuria and was diagnosed with UTI by her primary care and she was started on Levaquin. This morning she developed nausea and vomiting 4 episodes nonbloody hence she came to the ED. In the ED blood pressure was 105/44, heart rate 90, O2 sat 95% on room air, temperature 98.3 F. CBC showed normal BC count, hemoglobin of 8.6, platelet count 249. CMP showed creatinine of 3.96 which is increased from her baseline 1.3. Urinalysis showed moderate blood no leukocyte esterase no nitrite no WBC. Patient was given IV bolus and hospitalist service was called for further evaluation and management. Of Note she was recently admitted for CHF exacerbation 3 weeks prior. Past Medical History Cardiac Medical History: Reports: Atrial Fibrillation, Congestive Heart Failure, Coronary Artery Disease, DVT, Myocardial Infarction - x3 per patient, Hyperlipid selena, Hypertension, Peripheral Vascular Disease Pulmonary Medical History: Reports: Bronchitis, Chronic Obstructive Pulmonary Disease (COPD), Pneumonia Neurological Medical History: Denies: Migraine, Seizures Endocrine Medical History: Reports: Diabetes Mellitus Type 2 Denies: Diabetes Mellitus Type 1, Hyperthyroidism, Hypothyroidism GI Medical History: Reports: Gastroesophageal Reflux Disease, Hiatal Hernia Denies: Cirrhosis, Crohn's Disease, Hepatitis, Ulcerative Colitis Musculoskeltal Medical History: Reports: Arthritis Denies: Fibromyalgia, Gout Skin Medical History: Denies: Eczema, Psoriasis Psychiatric Medical History: Reports: Depression Hematology: Reports: Anemia Denies: Bleeding Tendencies Past Surgical History Past Surgical History: Reports: Amputation - Right BKA, Left AKA, Cardiac Catheterization, Section - x2, Cholecystectomy, Coronary Artery Bypass Graft - x3, Herniorrhaphy - Ventral hernia, Orthopedic Surgery - Knee surgery, Tubal Ligation, Vascular Surgery - Left iliofemoral bypass, Other - Peripheral nerve stimulator implantation Social History Information Source: Patient Lives with: Family Smoking Status: Former Smoker Electronic Cigarette use?: No Frequency of Alcohol Use: Rare Hx Recreational Drug Use: No Drugs: None Hx Prescription Drug Abuse: No - Advance Directive Resuscitation Status: Full Code Surrogate healthcare decision maker:: Patient names her Zay as her first healthcare power of civil attorney allowed by her 2 daughters. She wishes to be full code. Family History Family History: None, Reviewed & Not Pertinent, CAD, CVA, DM, Hypertension, Malignancy, Other - Kidney disease Parental Family History Reviewed: Yes Children Family History Reviewed: Yes Sibling(s) Family History Reviewed.: Yes Medication/Allergy Home Medications: Ascorbic Acid [Vitamin C] 500 mg PO DAILY 06/27/20 Aspirin [Lo-Dose Aspirin EC] 81 mg PO DAILY 06/27/20 Baclofen [Baclofen 10 mg Tablet] 10 mg PO QIDP PRN 06/27/20 Buspirone HCl 7.5 mg PO BID 06/27/20 Carvedilol [Coreg 3.125 mg Tablet] 3.125 mg PO Q12 06/27/20 Citalopram Hydrobromide [Citalopram HBr] 40 mg PO DAILY 06/27/20 Ergocalciferol (Vitamin D2) [Drisdol 50,000 unit (1.25MG) Capsule] 1 cap PO MO@1000 06/27/20 Fenofibrate Nanocrystallized [Tricor 145 mg Tablet] 145 mg PO DAILY 06/27/20 Gabapentin [Neurontin 300 mg Capsule] 600 mg PO Q6 06/27/20 Insulin Glargine,Hum.rec.anlog [Lantus Insulin 100 Unit/1 ml 10 ml] 20 unit SUBCUT QHS 06/27/20 Insulin Regular, Human [Humulin R (Reg) Insulin 100 unit/mL] 8 unit SUBCUT AC 06/27/20 Metoclopramide HCl [Reglan 10 mg Tablet] 10 mg PO ACHS 06/27/20 Multivitamin [Tab-A-Mariela (Multiple Vitamin) Tablet] 1 tab PO DAILY 06/27/20 Nitroglycerin [Nitrostat 0.4 mg (1/150 Gr) Tabs 25/Bottle] 1 tab SL Q5MP PRN 06/27/20 [place]-3 Acid Ethyl Esters [Lovaza 1 gm Capsule] 4 gm PO DAILY 06/27/20 Ondansetron [Zofran Odt 4 mg Tablet] 8 mg PO Q6HP PRN 06/27/20 Oxycodone HCl [Oxy-Ir 5 mg Tablet] 10 mg PO TIDP PRN 06/27/20 Rivaroxaban [Xarelto] 20 mg PO QPM 06/27/20 Silver Sulfadiazine [Silvadene 1% Cream 25 gm] 1 applic TOP DAILY 06/27/20 Trazodone HCl [Desyrel 50 mg Tablet] 50 mg PO QHS 06/27/20 Atorvastatin Calcium [Lipitor 80 mg Tablet] 80 mg PO QHS tablet 06/30/20 Bumetanide [Bumex 1 mg Tablet] 3 mg PO BID #90 tablet 06/30/20 Calcitriol [Rocaltrol 0.25 mcg Capsule] 0.25 mcg PO TUTHSA #12 capsule 06/30/20 Ferrous Sulfate [Feosol 325 mg Tablet] 325 mg PO BID tablet 06/30/20 Pantoprazole Sodium [Protonix [address] Tablet] 40 mg PO Q6AM tablet.dr 06/30/20 Allergies/Adverse Reactions: amlodipine Allergy (Severe, Verified 07/18/20 09:37) Hallucinations isosorbide [From Imdur] Allergy (Intermediate, Verified 07/18/20 09:37) RASH zolpidem [From Ambien] Adverse Reaction (Severe, Verified 07/18/20 09:37) Hallucinations Review of Systems Constitutional: ABSENT: fever(s), night sweats, weakness Eyes: ABSENT: visual disturbances Ears: ABSENT: hearing changes Cardiovascular: ABSENT: chest pain, dyspnea on exertion, edema, orthropnea, palpitations Respiratory: ABSENT: dyspnea, hemoptysis Gastrointestinal: PRESENT: nausea, vomiting Integumentary: ABSENT: diaphoresis Neurological: PRESENT: abnormal movements. ABSENT: focal weakness Physical Exam Vital Signs: Temp Pulse Resp BP Pulse Ox 98.3 F 81 16 105/44 L 95 07/18/20 08:53 07/18/20 08:53 07/18/20 08:53 07/18/20 08:53 07/18/20 08:53 Intake & Output 07/17/20 07/18/20 07/19/20 06:59 06:59 06:59 Intake Total 1000 Balance 1000 Weight 59.3 kg General appearance: PRESENT: no acute distress, cooperative Head exam: PRESENT: atraumatic, normocephalic Eye exam: PRESENT: EOMI, PERRLA Neck exam: PRESENT: full ROM Respiratory exam: PRESENT: clear to auscultation amaya, symmetrical, unlabored Cardiovascular exam: PRESENT: RRR, +S1, +S2 Pulses: PRESENT: +2 pedal pulses bilateral GI/Abdominal exam: PRESENT: normal bowel sounds, soft. ABSENT: rebound Extremities exam: PRESENT: other - Right BKA stump, left AKA stump Neurological exam: PRESENT: alert, awake, oriented to person, oriented to place, oriented to time, oriented to situation Psychiatric exam: PRESENT: normal mood Skin exam: PRESENT: normal color Results Laboratory Results: 07/18/20 10:42 07/18/20 10:42 07/18/20 07/18/20 07/18/20 10:42 10:42 13:01 WBC 9.8 RBC 2.97 L Hgb 8.6 L Hct 25.4 L MCV 86 MCH 29.0 MCHC 33.9 RDW 18.4 H Plt Count 249 Seg Neutrophils % 88.7 H Sodium 136.2 L Potassium 5.0 Chloride 97 L Carbon Dioxide 27 Anion Gap 12 BUN 128 H Creatinine 3.96 H Est GFR ( Amer) 15 L Glucose 206 H Calcium 9.2 Total Bilirubin 0.5 AST 17 Alkaline Phosphatase 51 Total Protein 7.1 Albumin 3.7 Urine Color YELLOW Urine Appearance CLEAR Urine pH 5.0 Ur Specific [place] 1.015 Urine Protein 100 H Urine Glucose (UA) NEGATIVE Urine Ketones NEGATIVE Urine Blood MODERATE H Urine Nitrite NEGATIVE Ur Leukocyte Esterase NEGATIVE Urine WBC (Auto) 0 Urine RBC (Auto) 1 07/18/20 10:42 Troponin I < 0.012 Impressions: Chest X-Ray 07/18/20 13:50 IMPRESSION: NO ACUTE RADIOGRAPHIC FINDING IN THE CHEST. Assessment and Plan - Diagnosis (1) Nausea and vomiting Qualifiers: Vomiting Intractability: non-intractable Is this a current diagnosis for this admission?: Yes Plan: -Patient being treated for UTI on Levaquin came in due to 4 episodes of vomiting -Patient has a history of congestive heart failure so we will cautiously hydrate her keeping a close eye on her fluid status -We will start IV antibiotics for UTI (2) Acute kidney injury superimposed on chronic kidney disease Is this a current diagnosis for this admission?: Yes Plan: -Patient has a history of CKD now with a creatinine of 3.6 -History of CHF -We'll do gentle hydration (3) Acute urinary tract infection Is this a current diagnosis for this admission?: Yes Plan: -Currently UA is not showing any signs of UTI however she has received 3 days of Levaquin -Urine culture pending -We'll start her on ceftriaxone (4) Atrial fibrillation Qualifiers: Atrial fibrillation type: unspecified chronic Qualified Code(s): I48.20 - Chronic atrial fibrillation, unspecified; I48.2 - Chronic atrial fibrillation Is this a current diagnosis for this admission?: Yes Plan: Continue Xarelto (5) Diabetes mellitus type 2 in obese Is this a current diagnosis for this admission?: Yes Plan: We'll continue her glargine 20 units at night we'll hold with meals insulin (6) Peripheral arterial disease Is this a current diagnosis for this admission?: Yes Plan: -Status post right BKA and left AKA (7) Coronary artery disease Qualifiers: Coronary Disease-Associated Artery/Lesion type: [place] artery [place] vs. transplanted heart: [place] heart Associated angina: without angina Qualified Code(s): I25.10 - Atherosclerotic heart disease of [place] coronary artery without angina pectoris Is this a current diagnosis for this admission?: Yes Plan: Continue aspirin, statin (8) S/P CABG x 3 Is this a current diagnosis for this admission?: Yes - Time Time Spent with patient: 25-34 minutes Medications reviewed and adjusted accordingly: Yes Anticipated Discharge Disposition: Home, Self Care Anticipated Discharge Timeframe: tbd
[2020-07-18] MEDS ORDERED: RIVAROXABAN 10 MG TABLET PO SCH (18:00)
[2020-07-18] MEDS ORDERED: CEFTRIAXONE 2 GM/D5W RTU 2 GM/50 ML RTUPB IV ONE (19:00)
[2020-07-18] MEDS: METOCLOPRAMIDE HCL INJ/PF 10 MG/2 ML SDV IV SCH (19:26)
[2020-07-19] MEDS: INSULIN GLARGINE,HUM.REC.ANLOG 1,000 UNIT/10 ML VIAL SUBCUT SCH ×2 (00:09→23:22)
[2020-07-19] MEDS: OXYCODONE HCL IR 5 MG TABLET PO PRN ×3 (00:13→17:25)
[2020-07-19] MEDS: METOCLOPRAMIDE HCL INJ/PF 10 MG/2 ML SDV IV SCH ×5 (00:14→23:21)
[2020-07-19] MEDS: HEPARIN SOD (PORCINE) 5,000 UNIT/ML 1 ML VIAL SUBCUT SCH ×3 (00:15→13:19)
[2020-07-19 06:37] LABS: ABSOLUTE BASOPHILS # (AUTO) 0.1 10^3/uL (0.0-0.2); ABSOLUTE EOSINOPHILS # (AUTO) 0.1 10^3/uL (0.0-0.6); ABSOLUTE MONOCYTES (AUTO) 0.3 10^3/uL (0.1-1.4); ABSOLUTE NEUT (AUTO) 4.5 10^3/uL (1.7-8.2); EOSINOPHILS % (AUTO) 1.4 % (0-6); HEMATOCRIT 22.6 % (36.0-47.0); LYMPHOCYTES % (AUTO) 16.5 % (13-45); MEAN CORPUSCULAR HGB CONC 33.4 g/dL (32.0-36.0); MEAN CORPUSCULAR VOLUME 87 fl (80-97); MONOCYTES % (AUTO) 5.6 % (3-13); PLATELET COUNT 232 10^3/uL (150-450); RED CELL DISTRIBUTION WIDTH 18.6 % (11.5-14.0); SEGMENTED NEUTROPHILS % (AUTO) 75.5 % (42-78); TOTAL CELLS COUNTED % (AUTO) 100 %
[2020-07-19 06:39] LABS: HEMOGLOBIN 7.6 g/dL (12.0-15.5)
[2020-07-19 06:57] LABS: ALBUMIN 3.4 g/dL (3.5-5.0); ALKALINE PHOSPHATASE 45 U/L (38-126); ANION GAP 9 (5-19); ASPARTATE AMINO TRANSFERASE 17 U/L (14-36); BILIRUBIN,DIRECT 0.3 mg/dL (0.0-0.4); BILIRUBIN,TOTAL 0.3 mg/dL (0.2-1.3); CALCIUM 8.8 mg/dL (8.4-10.2); CARBON DIOXIDE 24 mmol/L (22-30); CHLORIDE 107 mmol/L (98-107); GLUCOSE 128 mg/dL (75-110); POTASSIUM 4.7 mmol/L (3.6-5.0); TOTAL PROTEIN 6.7 g/dL (6.3-8.2)
[2020-07-19 07:20] LABS: BLOOD UREA NITROGEN 108 mg/dL (7-20)
[2020-07-19] MEDS: ONDANSETRON HCL INJ/PF 4 MG/2 ML SDV IV PRN ×2 (12:32→21:14)
[2020-07-19] MEDS ORDERED: NITROGLYCERIN 0.4 MG/TAB 25 TAB/BOTTLE SL PRN (15:23)
[2020-07-19] MEDS ORDERED: BACLOFEN 10 MG TABLET PO PRN (15:23)
--- NOTE | 2020-07-19 15:26 | PDOC PROGRESS REPORT ---
Subjective Date:: 07/19/20 Subjective:: HELDER SERNA is a 49 year old female, has medical history of A. fib on Xarelto status post ablation, CHF, DVT, hypertension, hyperlipidemia, type 2 diabetes, coronary artery disease status post CABG, PAD status post right BKA and left AKA who came in the ED today due to vomiting that started this morning. According to the patient she is being treated for a UTI and she is on Levaquin for 3 days now. About 1 week ago she had dysuria and was diagnosed with UTI by her primary care and she was started on Levaquin. This morning she developed nausea and vomiting 4 episodes nonbloody hence she came to the ED. In the ED blood pressure was 105/44, heart rate 90, O2 sat 95% on room air, temperature 98.3 F. CBC showed normal BC count, hemoglobin of 8.6, platelet count 249. CMP showed creatinine of 3.96 which is increased from her baseline 1.3. Urinalysis showed moderate blood no leukocyte esterase no nitrite no WBC. Patient was given IV bolus and hospitalist service was called for further evaluation and management. Of Note she was recently admitted for CHF exacerbation 3 weeks prior. D2 Hospital stay. Patient was seen and examined at bedside. She reports that her nausea and vomiting has improved, she was also able to pass a bowel movement today. She still has some burning when she urinates but otherwise she is afebrile no fever, no chills. IV fluids stopped today. Reason For Visit: VOMITING,UTI Physical Exam Vital Signs: Temp Pulse Resp BP Pulse Ox 97.8 F 72 14 116/58 L 93 07/19/20 11:17 07/19/20 12:17 07/19/20 12:17 07/19/20 11:17 07/19/20 12:17 Intake & Output 07/18/20 07/19/20 07/20/20 06:59 06:59 06:59 Intake Total 1050 1150 Output Total 2000 1200 Balance -950 -50 Weight 59.3 kg 75.1 kg General appearance: PRESENT: no acute distress, cooperative Head exam: PRESENT: atraumatic, normocephalic Eye exam: PRESENT: EOMI, PERRLA Mouth exam: PRESENT: moist Neck exam: PRESENT: full ROM Respiratory exam: PRESENT: clear to auscultation amaya, symmetrical, unlabored Cardiovascular exam: PRESENT: RRR, +S1, +S2 GI/Abdominal exam: PRESENT: normal bowel sounds, soft. ABSENT: rebound, tenderness Musculoskeletal exam: PRESENT: other - Surgically absent right leg due to BKA and left leg due to AKA Neurological exam: PRESENT: alert, awake, oriented to person, oriented to place, oriented to time, oriented to situation Psychiatric exam: PRESENT: normal mood Skin exam: PRESENT: normal color Results Laboratory Results: 07/19/20 05:29 07/19/20 05:29 07/19/20 07/19/20 05:29 05:29 WBC 6.0 RBC 2.60 L Hgb 7.6 L Hct 22.6 L MCV 87 MCH 29.0 MCHC 33.4 RDW 18.6 H Plt Count 232 Seg Neutrophils % 75.5 Sodium 140.2 Potassium 4.7 Chloride 107 Carbon Dioxide 24 Anion Gap 9 BUN 108 H D Creatinine 2.69 H Est GFR ( Amer) 23 L Glucose 128 H Calcium 8.8 Total Bilirubin 0.3 AST 17 Alkaline Phosphatase 45 Total Protein 6.7 Albumin 3.4 L 07/18/20 10:42 Troponin I < 0.012 Impressions: Chest X-Ray 07/18/20 13:50 IMPRESSION: NO ACUTE RADIOGRAPHIC FINDING IN THE CHEST. Assessment and Plan - Diagnosis (1) Nausea and vomiting Qualifiers: Vomiting Intractability: non-intractable Is this a current diagnosis for this admission?: Yes Plan: -Patient being treated for UTI on Levaquin came in due to 4 episodes of vomiting -Patient has a history of congestive heart failure so we will cautiously hydrate her keeping a close eye on her fluid status -We will start IV antibiotics for UTI (2) Acute kidney injury superimposed on chronic kidney disease Is this a current diagnosis for this admission?: Yes Plan: -Patient has a history of CKD now with a creatinine of 3.6>2.6 -History of CHF - IV fluids stopped today, I have resumed her diuretics for tomorrow. Her creatinine is still elevated so I have asked her to increase oral water intake. (3) Acute urinary tract infection Is this a current diagnosis for this admission?: Yes Plan: -Currently UA is not showing any signs of UTI however she has received 3 days of Levaquin -Urine culture negative x 24 hrs -We'll start her on ceftriaxone (4) Atrial fibrillation Qualifiers: Atrial fibrillation type: unspecified chronic Qualified Code(s): I48.20 - Chronic atrial fibrillation, unspecified; I48.2 - Chronic atrial fibrillation Is this a current diagnosis for this admission?: Yes Plan: Continue Xarelto (5) Diabetes mellitus type 2 in obese Is this a current diagnosis for this admission?: Yes Plan: We'll continue her glargine 20 units at night we'll hold with meals insulin (6) Peripheral arterial disease Is this a current diagnosis for this admission?: Yes Plan: -Status post right BKA and left AKA (7) Coronary artery disease Qualifiers: Coronary Disease-Associated Artery/Lesion type: [place] artery [place] vs. transplanted heart: [place] heart Associated angina: without angina Qualified Code(s): I25.10 - Atherosclerotic heart disease of [place] coronary artery without angina pectoris Is this a current diagnosis for this admission?: Yes Plan: Continue aspirin, statin (8) S/P CABG x 3 Is this a current diagnosis for this admission?: Yes - Time Time Spent with patient: 15-24 minutes Medications reviewed and adjusted accordingly: Yes Anticipated Discharge Disposition: Home, Self Care Anticipated Discharge Timeframe: within 48 hours
[2020-07-19] MEDS: RIVAROXABAN 10 MG TABLET PO SCH ×2 (15:30→17:25)
[2020-07-19] MEDS: GABAPENTIN 300 MG CAPSULE PO SCH ×2 (17:24→23:21)
[2020-07-19] MEDS: BUSPIRONE HCL 10 MG TABLET PO SCH (17:26)
[2020-07-19] MEDS ORDERED: BUSPIRONE HCL 7.5 MG PO SCH (18:00)
[2020-07-19] MEDS ORDERED: CEFTRIAXONE 2 GM/D5W RTU 2 GM/50 ML RTUPB IV SCH (18:00)
[2020-07-19] MEDS ORDERED: ATORVASTATIN CALCIUM 80 MG TABLET PO SCH (22:00)
[2020-07-19] MEDS ORDERED: TRAZODONE HCL 50 MG TABLET PO SCH (22:00)
[2020-07-19] MEDS ORDERED: CARVEDILOL 3.125 MG TABLET ONE (23:23)
[2020-07-19] MEDS: CARVEDILOL 3.125 MG TABLET PO SCH (23:30)
[2020-07-20] MEDS: OXYCODONE HCL IR 5 MG TABLET PO PRN ×2 (01:34→10:02)
[2020-07-20] MEDS: METOCLOPRAMIDE HCL INJ/PF 10 MG/2 ML SDV IV SCH ×2 (05:34→12:38)
[2020-07-20] MEDS: GABAPENTIN 300 MG CAPSULE PO SCH ×2 (05:36→12:45)
[2020-07-20 07:00] LABS: ABSOLUTE BASOPHILS # (AUTO) 0.1 10^3/uL (0.0-0.2); ABSOLUTE EOSINOPHILS # (AUTO) 0.1 10^3/uL (0.0-0.6); ABSOLUTE LYMPHOCYTES (AUTO) 1.3 10^3/uL (0.5-4.7); ABSOLUTE MONOCYTES (AUTO) 0.6 10^3/uL (0.1-1.4); ABSOLUTE NEUT (AUTO) 4.5 10^3/uL (1.7-8.2); EOSINOPHILS % (AUTO) 2.2 % (0-6); HEMOGLOBIN 8.3 g/dL (12.0-15.5); LYMPHOCYTES % (AUTO) 19.3 % (13-45); MEAN CORPUSCULAR HEMOGLOBIN 29.7 pg (27.0-33.4); MEAN CORPUSCULAR HGB CONC 34.7 g/dL (32.0-36.0); MEAN CORPUSCULAR VOLUME 85 fl (80-97); MONOCYTES % (AUTO) 8.7 % (3-13); PLATELET COUNT 253 10^3/uL (150-450); RED BLOOD COUNT 2.81 10^6/uL (3.72-5.28); RED CELL DISTRIBUTION WIDTH 18.2 % (11.5-14.0); SEGMENTED NEUTROPHILS % (AUTO) 68.8 % (42-78); TOTAL CELLS COUNTED % (AUTO) 100 %; WHITE BLOOD COUNT 6.5 10^3/uL (4.0-10.5)
[2020-07-20 07:21] LABS: ALBUMIN 3.6 g/dL (3.5-5.0); ALKALINE PHOSPHATASE 45 U/L (38-126); ANION GAP 9 (5-19); ASPARTATE AMINO TRANSFERASE 19 U/L (14-36); BILIRUBIN,DIRECT 0.3 mg/dL (0.0-0.4); BILIRUBIN,TOTAL 0.4 mg/dL (0.2-1.3); BLOOD UREA NITROGEN 61 mg/dL (7-20); CALCIUM 9.1 mg/dL (8.4-10.2); CARBON DIOXIDE 23 mmol/L (22-30); CHLORIDE 106 mmol/L (98-107); GLUCOSE 118 mg/dL (75-110); POTASSIUM 4.5 mmol/L (3.6-5.0); TOTAL PROTEIN 7.1 g/dL (6.3-8.2)
[2020-07-20] MEDS ORDERED: FENOFIBRATE NANOCRYSTALLIZED 145 MG TABLET PO SCH (10:00)
[2020-07-20] MEDS ORDERED: ASPIRIN 81 MG TABLET, ENT COATED PO SCH (10:00)
[2020-07-20] MEDS ORDERED: CITALOPRAM HYDROBROMIDE 20 MG TABLET PO SCH (10:00)
[2020-07-20] MEDS ORDERED: CITALOPRAM HYDROBROMIDE 40 MG PO SCH (10:00)
[2020-07-20] MEDS: BUSPIRONE HCL 10 MG TABLET PO SCH (10:01)
[2020-07-20] MEDS: CARVEDILOL 3.125 MG TABLET PO SCH (10:45)
[2020-07-20 11:51] VITALS: BP 125/67
--- NOTE | 2020-07-20 13:13 | CDI QUERY ---
CDI Query CDI Review: We are seeking further clarification of documentation to reflect the severity of illness of your patient. (4) Atrial fibrillation Qualifiers: Atrial fibrillation type: unspecified chronic Qualified Code(s): I48.20 - Chronic atrial fibrillation, unspecified; I48.2 - Chronic atrial fibrillation Is this a current diagnosis for this admission?: Yes Plan: Continue Xarelto Based on your medical judgement, can you further clarify in the Progress Notes and the Discharge Summary if the Atrial Fibrillation can be further specified: Persistent Atrial fibrillation Chronic (Permanent) Atrial fibrillation Other Unable to determine Thank you for your consideration. FREDY Weber RN Clinical [place] [employer] Physician Advisor [email or web address]
--- NOTE | 2020-07-20 17:16 | PDOC DISCHARGE SUMMARY ---
Impression - Admit/DC Date/PCP Admission Date/Primary Care Provider: 07/18/20 14:04 MARQUITA TIFFANY BENOIT-[facility]fe Discharge Date: 07/20/20 - Assessment Summary: (1) Nausea and vomiting Qualifiers: Vomiting Intractability: non-intractable Is this a current diagnosis for this admission?: Yes Plan: -Patient being treated for UTI on Levaquin came in due to 4 episodes of vomiting -Patient has a history of congestive heart failure so we will cautiously hydrate her keeping a close eye on her fluid status -We will start IV antibiotics for UTI 07/20/2020-vomiting resolved. Patient is able to tolerate the diabetic diet. (2) Acute kidney injury superimposed on chronic kidney disease Is this a current diagnosis for this admission?: Yes Plan: -Patient has a history of CKD now with a creatinine of 3.6>2.6 -History of CHF - IV fluids stopped today, I have resumed her diuretics for tomorrow. Her creatinine is still elevated so I have asked her to increase oral water intake. 07/20/2020-acute knee injury is resolved. Yesterday serum creatinine is 2.6 this time it is 1.55 today. On admission serum creatinine is 3.96. (3) Acute urinary tract infection Is this a current diagnosis for this admission?: Yes Plan: -Currently UA is not showing any signs of UTI however she has received 3 days of Levaquin -Urine culture negative x 24 hrs -We'll start her on ceftriaxone 07/20/2020-urine analysis is abnormal at the time of admission. Urine cultures are negative. Patient is given a prescription of Macrobid 100 mg p.o. twice daily for 5 days. (4) Atrial fibrillation Qualifiers: Atrial fibrillation type: unspecified chronic Qualified Code(s): I48.20 - Chronic atrial fibrillation, unspecified; I48.2 - Chronic atrial fibrillation Is this a current diagnosis for this admission?: Yes Plan: Continue Xarelto 07/20/2020-patient has history of chronic atrial fibrillation. Unable to det ermine specificity. (5) Diabetes mellitus type 2 in obese Is this a current diagnosis for this admission?: Yes Plan: We'll continue her glargine 20 units at night we'll hold with meals insulin 07/20/2020-patient has history of type 2 diabetes mellitus. Patient is advised to continue home medications and advised about diet exercise weight loss lifestyle modifications. (6) Peripheral arterial disease Is this a current diagnosis for this admission?: Yes Plan: -Status post right BKA and left AKA (7) Coronary artery disease Qualifiers: Coronary Disease-Associated Artery/Lesion type: [place] artery [place] vs. transplanted heart: [place] heart Associated angina: without angina Qualified Code(s): I25.10 - Atherosclerotic heart disease of [place] coronary artery without angina pectoris Is this a current diagnosis for this admission?: Yes Plan: Continue aspirin, statin (8) S/P CABG x 3 Is this a current diagnosis for this admission?: Yes - Additional Information Resuscitation Status: Full Code Discharge Diet: Diabetic Discharge Activity: Activity As Tolerated Referrals: MARQUITA BENOIT FNP-C [Primary Care Provider] - Follow up as needed Prescriptions: Nitrofurantoin Monohyd/M-Cryst [Macrobid 100 mg Capsule] 100 mg PO BID 5 Days #10 cap Home Medications: Ascorbic Acid [Vitamin C] 500 mg PO DAILY 06/27/20 Aspirin [Lo-Dose Aspirin EC] 81 mg PO DAILY 06/27/20 Baclofen [Baclofen 10 mg Tablet] 10 mg PO QIDP PRN 06/27/20 Buspirone HCl 7.5 mg PO BID 06/27/20 Carvedilol [Coreg 3.125 mg Tablet] 3.125 mg PO Q12 06/27/20 Citalopram Hydrobromide [Citalopram HBr] 40 mg PO DAILY 06/27/20 Ergocalciferol (Vitamin D2) [Drisdol 50,000 unit (1.25MG) Capsule] 1 cap PO MO@1000 06/27/20 Fenofibrate Nanocrystallized [Tricor 145 mg Tablet] 145 mg PO DAILY 06/27/20 Gabapentin [Neurontin 300 mg Capsule] 600 mg PO Q6 06/27/20 Insulin Glargine,Hum.rec.anlog [Lantus Insulin 100 Unit/1 ml 10 ml] 20 unit SUBCUT QHS 06/27/20 Insulin Regular, Human [Humulin R (Reg) Insulin 100 unit/mL] 8 unit SUBCUT AC 06/27/20 Metoclopramide HCl [Reglan 10 mg Tablet] 10 mg PO ACHS 06/27/20 Multivitamin [Tab-A-Mariela (Multiple Vitamin) Tablet] 1 tab PO DAILY 06/27/20 Nitroglycerin [Nitrostat 0.4 mg (1/150 Gr) Tabs 25/Bottle] 1 tab SL Q5MP PRN 06/27/20 [place]-3 Acid Ethyl Esters [Lovaza 1 gm Capsule] 4 gm PO DAILY 06/27/20 Ondansetron [Zofran Odt 4 mg Tablet] 8 mg PO Q6HP PRN 06/27/20 Oxycodone HCl [Oxy-Ir 5 mg Tablet] 10 mg PO TIDP PRN 06/27/20 Rivaroxaban [Xarelto] 20 mg PO QPM 06/27/20 Silver Sulfadiazine [Silvadene 1% Cream 25 gm] 1 applic TOP DAILY 06/27/20 Trazodone HCl [Desyrel 50 mg Tablet] 50 mg PO QHS 06/27/20 Atorvastatin Calcium [Lipitor 80 mg Tablet] 80 mg PO QHS tablet 06/30/20 Calcitriol [Rocaltrol 0.25 mcg Capsule] 0.25 mcg PO TUTHSA #12 capsule 06/30/20 Ferrous Sulfate [Feosol 325 mg Tablet] 325 mg PO BID tablet 06/30/20 Pantoprazole Sodium [Protonix [address] Tablet] 40 mg PO Q6AM tablet.dr 06/30/20 Nitrofurantoin Monohyd/M-Cryst [Macrobid 100 mg Capsule] 100 mg PO BID 5 Days #10 cap 07/20/20 History of Present Illiness History of Present Illness: HELDER SERNA is a 49 year old female 49 year old female, has medical history of A. fib on Xarelto status post ablation, CHF, DVT, hypertension, hyperlipidemia, type 2 diabetes, coronary artery disease status post CABG, PAD status post right BKA and left AKA who came in the ED today due to vomiting that started this morning. According to the patient she is being treated for a UTI and she is on Levaquin for 3 days now. About 1 week ago she had dysuria and was diagnosed with UTI by her primary care and she was started on Levaquin. This morning she developed nausea and vomiting 4 episodes nonbloody hence she came to the ED. In the ED blood pressure was 105/44, heart rate 90, O2 sat 95% on room air, temperature 98.3 F. CBC showed normal BC count, hemoglobin of 8.6, platelet count 249. CMP showed creatinine of 3.96 which is increased from her baseline 1.3. Urinalysis showed moderate blood no leukocyte esterase no nitrite no WBC. Patient was given IV bolus and hospitalist service was called for further evaluation and management. Of Note she was recently admitted for CHF exacerbation 3 weeks prior. Hospital Course Hospital Course: 49 year old female, has medical history of A. fib on Xarelto status post ablation, CHF, DVT, hypertension, hyperlipidemia, type 2 diabetes, coronary a rtery disease status post CABG, PAD status post right BKA and left AKA who came in the ED today due to vomiting that started this morning. According to the patient she is being treated for a UTI and she is on Levaquin for 3 days now. About 1 week ago she had dysuria and was diagnosed with UTI by her primary care and she was started on Levaquin. This morning she developed nausea and vomiting 4 episodes nonbloody hence she came to the ED. In the ED blood pressure was 105/44, heart rate 90, O2 sat 95% on room air, temperature 98.3 F. CBC showed normal BC count, hemoglobin of 8.6, platelet count 249. CMP showed creatinine of 3.96 which is increased from her baseline 1.3. Urinalysis showed moderate blood no leukocyte esterase no nitrite no WBC. Patient was given IV bolus and hospitalist service was called for further evaluation and management. Of Note she was recently admitted for CHF exacerbation 3 weeks prior. D2 Hospital stay. Patient was seen and examined at bedside. She reports that her nausea and vomiting has improved, she was also able to pass a bowel movement today. She still has some burning when she urinates but otherwise she is afebrile no fever, no chills. IV fluids stopped today. 07/14/20-no acute events in the last 24 hours. Afebrile. Acute kidney injury resolved. Urine culture is negative. Patient is going home on Macrobid 100 mg p.o. twice daily for 5 days. Patient is advised to follow-up with PCP. Plan is to resume home health. Physical Exam Vital Signs: Temp Pulse Resp BP Pulse Ox 98.3 F 74 16 125/67 97 07/20/20 11:44 07/20/20 11:44 07/20/20 11:44 07/20/20 11:44 07/20/20 11:44 Intake & Output 07/19/20 07/20/20 07/21/20 06:59 06:59 06:59 Intake Total 1050 1630 140 Output Total 1999 1999 200 Balance -950 -370 -60 Weight 59.3 kg 74.571 kg General appearance: PRESENT: no acute distress, cooperative, well-developed Head exam: PRESENT: atraumatic Eye exam: PRESENT: PERRLA Mouth exam: PRESENT: moist, tongue midline Teeth exam: PRESENT: poor dentation Neck exam: ABSENT: carotid bruit, JVD, lymphadenopathy, thyromegaly Respiratory exam: PRESENT: decreased breath sounds Cardiovascular exam: PRESENT: RRR. ABSENT: diastolic murmur, rubs, systolic murmur GI/Abdominal exam: PRESENT: normal bowel sounds, soft. ABSENT: distended, guarding, mass, organolmegaly, rebound, tenderness Rectal exam: PRESENT: deferred Extremities exam: PRESENT: full ROM. ABSENT: calf tenderness, clubbing, pedal edema Neurological exam: PRESENT: alert, awake, oriented to person, oriented to place, oriented to time, oriented to situation, CN II-XII grossly intact. ABSENT: motor sensory deficit Psychiatric exam: PRESENT: appropriate affect, normal mood. ABSENT: homicidal ideation, suicidal ideation Results Laboratory Results: WBC 6.5 10^3/uL (4.0-10.5) 07/20/20 06:35 RBC 2.81 10^6/uL (3.72-5.28) L 07/20/20 06:35 Hgb 8.3 g/dL (12.0-15.5) L 07/20/20 06:35 Hct 24.0 % (36.0-47.0) L 07/20/20 06:35 MCV 85 fl (80-97) 07/20/20 06:35 MCH 29.7 pg (27.0-33.4) 07/20/20 06:35 MCHC 34.7 g/dL (32.0-36.0) 07/20/20 06:35 RDW 18.2 % (11.5-14.0) H 07/20/20 06:35 Plt Count 253 10^3/uL (150-450) 07/20/20 06:35 Lymph % (Auto) 19.3 % (13-45) 07/20/20 06:35 [place] % (Auto) 8.7 % (3-13) 07/20/20 06:35 Eos % (Auto) 2.2 % (0-6) 07/20/20 06:35 Baso % (Auto) 1.0 % (0-2) 07/20/20 06:35 Absolute Neuts (auto) 4.5 10^3/uL (1.7-8.2) 07/20/20 06:35 Absolute Lymphs (auto) 1.3 10^3/uL (0.5-4.7) 07/20/20 06:35 Absolute Monos (auto) 0.6 10^3/uL (0.1-1.4) 07/20/20 06:35 Absolute Eos (auto) 0.1 10^3/uL (0.0-0.6) 07/20/20 06:35 Absolute Basos (auto) 0.1 10^3/uL (0.0-0.2) 07/20/20 06:35 Seg Neutrophils % 68.8 % (42-78) 07/20/20 06:35 Sodium 137.7 mmol/L (137-145) 07/20/20 06:35 Potassium 4.5 mmol/L (3.6-5.0) 07/20/20 06:35 Chloride 106 mmol/L (98-107) 07/20/20 06:35 Carbon Dioxide 23 mmol/L (22-30) 07/20/20 06:35 Anion Gap 9 (5-19) 07/20/20 06:35 BUN 61 mg/dL (7-20) H 07/20/20 06:35 Creatinine 1.55 mg/dL (0.52-1.25) H 07/20/20 06:35 Est GFR ( Amer) 43 (>60) L 07/20/20 06:35 Est GFR (MDRD) Non-Af 35 (>60) L 07/20/20 06:35 Glucose 118 mg/dL (75-110) H 07/20/20 06:35 POC Glucose 122 mg/dL (70-110) H 07/20/20 05:47 Calcium 9.1 mg/dL (8.4-10.2) 07/20/20 06:35 Total Bilirubin 0.4 mg/dL (0.2-1.3) 07/20/20 06:35 Direct Bilirubin 0.3 mg/dL (0.0-0.4) 07/20/20 06:35 Neonat Total Bilirubin Not Reportable 07/20/20 06:35 Neonat Direct Bilirubin Not Reportable 07/20/20 06:35 Neonat Indirect Bili Not Reportable 07/20/20 06:35 AST 19 U/L (14-36) 07/20/20 06:35 ALT 6 U/L (<35) 07/20/20 06:35 Alkaline Phosphatase 45 U/L (38-126) 07/20/20 06:35 Troponin I < 0.012 ng/mL 07/18/20 10:42 Total Protein 7.1 g/dL (6.3-8.2) 07/20/20 06:35 Albumin 3.6 g/dL (3.5-5.0) 07/20/20 06:35 Urine Color YELLOW 07/18/20 13:01 Urine Appearance CLEAR 07/18/20 13:01 Urine pH 5.0 (5.0-9.0) 07/18/20 13:01 Ur Specific [place] 1.015 07/18/20 13:01 Urine Protein 100 mg/dL (NEGATIVE) H 07/18/20 13:01 Urine Glucose (UA) NEGATIVE mg/dL (NEGATIVE) 07/18/20 13:01 Urine Ketones NEGATIVE mg/dL (NEGATIVE) 07/18/20 13:01 Urine Blood MODERATE (NEGATIVE) H 07/18/20 13:01 Urine Nitrite NEGATIVE (NEGATIVE) 07/18/20 13:01 Urine Bilirubin NEGATIVE (NEGATIVE) 07/18/20 13:01 Urine Urobilinogen NEGATIVE mg/dL (<2.0) 07/18/20 13:01 Ur Leukocyte Esterase NEGATIVE (NEGATIVE) 07/18/20 13:01 Urine WBC (Auto) 0 /HPF 07/18/20 13:01 Urine RBC (Auto) 1 /HPF 07/18/20 13:01 U Hyaline Cast (Auto) 9 /LPF 07/18/20 13:01 Squamous Epi Cells Auto 1 /HPF 07/18/20 13:01 Urine Mucus (Auto) RARE /LPF 07/18/20 13:01 Urine Ascorbic Acid 40 (NEGATIVE) H 07/18/20 13:01 Influenza A (RT-PCR) NEGATIVE (NEGATIVE) 07/18/20 18:15 Influenza B (RT-PCR) NEGATIVE (NEGATIVE) 07/18/20 18:15 RSV (RT-PCR) NEGATIVE (NEGATIVE) 07/18/20 18:15 SARS-CoV-2 Rap RNA(RT-PCR) NEGATIVE (NEGATIVE) 07/18/20 18:15 07/18/20 10:42 Troponin I < 0.012 Impressions: Chest X-Ray 07/18/20 13:50 IMPRESSION: NO ACUTE RADIOGRAPHIC FINDING IN THE CHEST. Plan Time Spent: Greater than 30 Minutes Stroke Is this a Stroke Patient?: No Acute Heart Failure Is this a Heart Failure Patient?: No
[2020-07-20] MEDS ORDERED: BUMETANIDE 1 MG TABLET PO SCH (18:00)
== END 2020-07-20 13:24 | disposition home or self-care (01) | DRG 683 ==
LOC: ER 08:46 → EH 14:04 → 4W 22:45 → 2N 07-19 16:44
PROVIDERS: ADMIT Internal Medicine; ATTEND Internal Medicine
DX: N17.9 Acute kidney failure, unspecified (principal); N39.0 Urinary tract infection, site not specified; I13.0 Hypertensive heart and chronic kidney disease with heart failure and stage 1 through stage 4 chronic kidney disease, or unspecified chronic kidney disease; I48.20 Chronic atrial fibrillation, unspecified; D63.1 Anemia in chronic kidney disease; E11.51 Type 2 diabetes mellitus with diabetic peripheral angiopathy without gangrene; E11.22 Type 2 diabetes mellitus with diabetic chronic kidney disease; I50.9 Heart failure, unspecified; Z89.612 Acquired absence of left leg above knee; N18.30 Chronic kidney disease, stage 3 unspecified; G89.4 Chronic pain syndrome; R11.2 Nausea with vomiting, unspecified; I25.10 Atherosclerotic heart disease of native coronary artery without angina pectoris; E78.5 Hyperlipidemia, unspecified; M19.90 Unspecified osteoarthritis, unspecified site; F32.9 Major depressive disorder, single episode, unspecified; Z79.4 Long term (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 of insulin; Z89.511 Acquired absence of right leg below knee; Z95.1 Presence of aortocoronary bypass graft; Z79.82 Long term (current) use of aspirin; Z79.899 Other long term (current) drug therapy; Z86.718 Personal history of other venous thrombosis and embolism; Z95.820 Peripheral vascular angioplasty status with implants and grafts; Z87.891 Personal history of nicotine dependence; Z88.8 Allergy status to other drugs, medicaments and biological substances; Z83.3 Family history of diabetes mellitus; Z84.1 Family history of disorders of kidney and ureter; Z82.49 Family history of ischemic heart disease and other diseases of the circulatory system
CPT/HCPCS: 36415; 71045; 80053; 81001; 82962; 84484; 85025; 87040; 87086; 93005; 93010; 96361; 96374; 96375; 99285; 0241U; C9803; J0696; J1644; J1815; J2405; J2765; J3010; J3490; J7030; J7120

== ENCOUNTER 2020-07-29 15:39 | Emergency (ER) | payer MEDICARE, MEDICAID ==
--- NOTE | 2020-07-29 17:41 | ER Document Report ---
HPI - HPI Patient complains to provider of: Left shoulder pain Time Seen by Provider: 07/29/20 17:34 Pain Level: 4 Context: 49-year-old female history of right BKA, left AKA, hypertension, diabetes, chronic pain, CHF, CABG presents to the emergency room complaining of left shoulder pain. Patient states she was being carried down some steps by 2 gentleman 1 6 inches taller than the other states that when they went to set her down she heard a pop to her left shoulder. States happened on Sunday while they were trying to carry her down to the beach to spread her mom's ashes. She did not fall or sustain any other injuries. Patient states her home health nurse came out to see her today and noticed that patient was unable to fully lift her left arm and send her to the emergency room for possible rotator cuff injury. Patient states she takes oxycodone for chronic pain which has been helping with the pain. Patient is right-handed. No history of previous trauma or injury to her left shoulder. Associated Symptoms: None Exacerbated by: Movement Relieved by: Remaining still, Other - Oxycodone Similar symptoms previously: No Recently seen / treated by doctor: No - ROS Systems Reviewed and Negative: Yes All other systems reviewed and negative - NEURO Neurology: DENIES: Headache, Weakness - REPRODUCTIVE Reproductive: DENIES: : - MUSCULOSKELETAL Musculoskeletal: REPORTS: Extremity pain. DENIES: Back Pain - DERM Skin Color: Normal Skin Problems: None Past Medical History - General Information source: Patient - Social History Smoking Status: Former Smoker Frequency of alcohol use: None Drug Abuse: None Family History: None, Reviewed & Not Pertinent, CAD, CVA, DM, Hypertension, Malignancy, Other - Kidney disease - Past Medical History Cardiac Medical History: Reports: Hx Atrial Fibrillation, Hx Congestive Heart Failure, Hx Coronary Artery Disease, Hx DVT, Hx Heart Attack, Hx Hypercholesterolemia, Hx Hypertension, Hx Peripheral Vascular Disease Pulmonary Medical History: Reports: Hx Bronchitis, Hx COPD, Hx Pneumonia Neurological Medical History: Denies: Hx Migraine, Hx Seizures Endocrine Medical History: Reports: Hx Diabetes Mellitus Type 2. Denies: Hx Diabetes Mellitus Type 1, Hx Hyperthyroidism, Hx Hypothyroidism Renal/ Medical History: Reports: Hx Hemodialysis - Short-term for fluid overload only, Hx Kidney Stones, Hx Renal Insufficiency. Denies: Hx Peritoneal Dialysis GI Medical History: Reports: Hx Gastroesophageal Reflux Disease, Hx Hiatal Hernia, Hx Irritable Bowel. Denies: Hx Cirrhosis, Hx Crohn's Disease, Hx Hepatitis, Hx Ulcerative Colitis Musculoskeletal Medical History: Reports Hx Arthritis, Denies Hx Fibromyalgia, Denies Hx Gout, Reports Hx Musculoskeletal Deformity, Reports Hx Musculoskeletal Trauma Skin Medical History: Reports Hx Cellulitis, Denies Hx Eczema, Denies Hx Psoriasis Psychiatric Medical History: Reports: Hx Anxiety, Hx Depression Infectious Medical History: Denies: Hx Hepatitis Past Surgical History: Reports: Hx Abdominal Surgery, Hx Cardiac Cathet erization, Hx Cardiac Surgery - CABGx3, Hx Section - x2, Hx Cholecystectomy, Hx Coronary Artery Bypass Graft - x3, Hx Herniorrhaphy - Ventral hernia, Hx Orthopedic Surgery - R BKA,L AKA, Hx Tubal Ligation, Hx Vascular Surgery - Left iliofemoral bypass, Other - Peripheral nerve stimulator implantation - Immunizations Immunizations up to date: Yes Hx Diphtheria, Pertussis, Tetanus Vaccination: Yes Hx Pneumococcal Vaccination: 07/23/09 Vertical Provider Document - CONSTITUTIONAL Agree With Documented VS: Yes Exam Limitations: No Limitations General Appearance: Mild Distress - INFECTION CONTROL TRAVEL OUTSIDE OF THE [place] IN LAST 30 DAYS: No - HEENT HEENT: Atraumatic, Normocephalic - NECK Neck: Normal Inspection, Supple - RESPIRATORY Respiratory: Breath Sounds Normal, No Respiratory Distress - CARDIOVASCULAR Cardiovascular: Regular Rate, Regular Rhythm, No Murmur - MUSCULOSKELETAL/EXTREMETIES Musculoskeletal/Extremeties: Tender - Tenderness on palpation to the left posterior scapula, left AC joint, no obvious deformity noted. Unable to fully lift her left arm secondary to pain. Decreased range of motion. - NEURO Level of Consciousness: Awake, Alert, Appropriate Notes: Positive left radial pulse. Capillary refill less than 3 seconds. Content Strategy Lead strength equal and adequate bilaterally. Neurovascularly intact. - DERM Integumentary: Warm, Dry, No Rash Course - Re-evaluation Re-evalutation: 07/29/20 18:33 Patient took her own oxycodone while waiting for her x-ray results. Decreased pain. Reviewed x-ray results with patient. Counseled on importance for an outpatient follow-up with orthopedics for further evaluation and treatment. Patient was counseled that we would not be able determine rotator cuff from x- ray she would need an MRI which she is unable to have. On-call physician was provided. Patient was given strict return to the emergency room guidelines. Return for any new or worsening symptoms. All questions were answered. Patient verbalized understanding and agrees with plan of care. - Vital Signs Vital signs: Temp Pulse Resp BP Pulse Ox 98.2 F 70 18 128/61 H 97 07/29/20 15:46 07/29/20 15:46 07/29/20 15:46 07/29/20 15:46 07/29/20 15:46 - Laboratory Results Critical Laboratory Results Reviewed: No Critical Results - Radiology Results Critical Radiology Results Reviewed: No Critical Results Discharge - Discharge Clinical Impression: Injury of left shoulder Qualifiers: Encounter type: initial encounter Qualified Code(s): S49.92XA - Unspecified injury of left shoulder and upper arm, initial encounter Condition: Stable Disposition: HOME, SELF-CARE Instructions: Shoulder Injury ([facility]) Additional Instructions: Continue with your current pain medication. Call orthopedics for an outpatient follow-up appointment. Return to emergency room for any new or worsening symptoms. Referrals: MARQUITA BENOIT FNP-C [Primary Care Provider] - Follow up as needed BERNICE XIAO MD [ACTIVE STAFF] - Follow up tomorrow (Call for an outpatient follow-up appointment.)
--- NOTE | 2020-07-29 18:21 | RADIOLOGY REPORT (SQ) ---
EXAM DESCRIPTION: SHOULDER LEFT 2 OR MORE VIEWS IMAGES COMPLETED DATE/TIME: 07/29/2020 4:59 pm REASON FOR STUDY: injury. Patient was being carried, arm was lifted and patient felt a pop. COMPARISON: None. NUMBER OF VIEWS: Three views. TECHNIQUE: Internal rotation, external rotation, and Y view images acquired of the left shoulder. LIMITATIONS: None. FINDINGS: MINERALIZATION: Normal. BONES: No acute fracture. No worrisome bone lesions. JOINTS: No dislocation. VISUALIZED LUNGS AND RIBS: No pneumothorax. No rib fracture. SOFT TISSUES: No radiopaque foreign body. OTHER: No other significant finding. IMPRESSION: NEGATIVE STUDY OF THE LEFT SHOULDER. NO RADIOGRAPHIC EVIDENCE OF ACUTE INJURY. TECHNICAL DOCUMENTATION: JOB ID: [id number] 2010 [employer]- All Rights Reserved Reading location - IP/workstation name: [email or web address]
[2020-07-29 18:40] VITALS: BP 128/75
== END 2020-07-29 18:43 | disposition home or self-care (01) ==
LOC: ER 15:39
DX: S49.92XA Unspecified injury of left shoulder and upper arm, initial encounter (principal); X58.XXXA Exposure to other specified factors, initial encounter; Y92.832 Beach as the place of occurrence of the external cause; I48.91 Unspecified atrial fibrillation; I11.0 Hypertensive heart disease with heart failure; I50.9 Heart failure, unspecified; E78.00 Pure hypercholesterolemia, unspecified; E11.9 Type 2 diabetes mellitus without complications; G89.29 Other chronic pain; Z90.49 Acquired absence of other specified parts of digestive tract; Z95.1 Presence of aortocoronary bypass graft; Z89.511 Acquired absence of right leg below knee; Z89.612 Acquired absence of left leg above knee
CPT/HCPCS: 99283

== ENCOUNTER 2020-08-02 15:16 | Inpatient (IN) | payer MEDICARE, MEDICAID ==
[2020-08-02] MEDS ORDERED: ONDANSETRON HCL INJ/PF 4 MG/2 ML SDV IV ONE (16:52)
--- NOTE | 2020-08-02 16:52 | ER Document Report ---
ED Medical Screen (RME) - General Chief Complaint: Nausea/Vomiting Stated Complaint: VOMITING, NAUSEA Time Seen by Provider: 08/02/20 16:44 Primary Care Provider: MARQUITA BENOIT FNP-C [Primary Care Provider] - Follow up as needed Notes: HPI: 49-year-old female with multiple medical issues presenting for nausea vomiting today with hypotension. States she is thrown up over 20 times. PHYSICAL EXAMINATION: Patient is very pale. She is hypotensive. She has no abdominal pain on exam but is actively vomiting in triage limiting exam I have greeted and performed a rapid initial assessment of this patient. A comprehensive ED assessment and evaluation of the patient, analysis of test results and completion of medical decision making process will be conducted by an additional ED providers. Please note that clinical decision making for this patient was made during the 2019 pandemic of novel coronavirus which caused a significant strain on the healthcare system including at this particular facility. Criteria for admission discharge and level of care decisions as well as treatment decisions have necessarily changed TRAVEL OUTSIDE OF THE [place] IN LAST 30 DAYS: No - Related Data Allergies/Adverse Reactions: amlodipine Allergy (Severe, Verified 08/02/20 16:44) Hallucinations isosorbide [From Imdur] Allergy (Intermediate, Verified 08/02/20 16:44) RASH zolpidem [From Ambien] Adverse Reaction (Severe, Verified 08/02/20 16:44) Hallucinations Past Medical History - Past Medical History Cardiac Medical History: Reports: Hx Atrial Fibrillation, Hx Congestive Heart Failure, Hx Coronary Artery Disease, Hx DVT, Hx Heart Attack, Hx Hypercholesterolemia, Hx Hypertension, Hx Peripheral Vascular Disease Pulmonary Medical History: Reports: Hx Bronchitis, Hx COPD, Hx Pneumonia Neurological Medical History: Denies: Hx Migraine, Hx Seizures Endocrine Medical History: Reports: Hx Diabetes Mellitus Type 2. Denies: Hx Diabetes Mellitus Type 1, Hx Hyperthyroidism, Hx Hypothyroidism Renal/ Medical History: Reports: Hx Hemodialysis - Short-term for fluid overload only, Hx Kidney Stones, Hx Renal Insufficiency. Denies: Hx Peritoneal Dialysis GI Medical History: Reports: Hx Gastroesophageal Reflux Disease, Hx Hiatal Hernia, Hx Irritable Bowel. Denies: Hx Cirrhosis, Hx Crohn's Disease, Hx Hepatitis, Hx Ulcerative Colitis Musculoskeltal Medical History: Reports Hx Arthritis, Denies Hx Fibromyalgia, Denies Hx Gout, Reports Hx Musculoskeletal Deformity, Reports Hx Musculoskeletal Trauma Skin Medical History: Reports Hx Cellulitis, Denies Hx Eczema, Denies Hx Psoriasis Psychiatric Medical History: Reports: Hx Anxiety, Hx Depression Infectious Medical History: Denies: Hx Hepatitis Past Surgical History: Reports: Hx Abdominal Surgery, Hx Cardiac Catheterization, Hx Cardiac Surgery - CABGx3, Hx Section - x2, Hx Cholecystectomy, Hx Coronary Artery Bypass Graft - x3, Hx Herniorrhaphy - Ventral hernia, Hx Orthopedic Surgery - R BKA,L AKA, Hx Tubal Ligation, Hx Vascular Surgery - Left iliofemoral bypass, Other - Peripheral nerve stimulator implantation - Immunizations Immunizations up to date: Yes Hx Diphtheria, Pertussis, Tetanus Vaccination: Yes Physical Exam - Vital signs Vitals: Temp Pulse Resp BP Pulse Ox 97.8 F 80 16 86/60 L 100 08/02/20 15:27 08/02/20 15:27 08/02/20 15:27 08/02/20 15:27 08/02/20 15:27 Course - Vital Signs Vital signs: Temp Pulse Resp BP Pulse Ox 97.8 F 80 16 86/60 L 100 08/02/20 15:27 08/02/20 15:27 08/02/20 15:27 08/02/20 15:27 08/02/20 15:27 Doctor's Discharge - Discharge Referrals: MARQUITA BENOIT FNP-C [Primary Care Provider] - Follow up as needed
[2020-08-02] MEDS: RINGERS SOLUTION,LACTATED 1,000 ML IV PRN ×2 (17:12→18:30)
[2020-08-02 17:54] LABS: ALBUMIN 3.4 g/dL (3.5-5.0); ALKALINE PHOSPHATASE 46 U/L (38-126); ANION GAP 14 (5-19); ASPARTATE AMINO TRANSFERASE 139 U/L (14-36); BILIRUBIN,DIRECT 0.5 mg/dL (0.0-0.4); BILIRUBIN,TOTAL 0.6 mg/dL (0.2-1.3); BLOOD UREA NITROGEN 104 mg/dL (7-20); CALCIUM 8.4 mg/dL (8.4-10.2); CARBON DIOXIDE 21 mmol/L (22-30); CHLORIDE 97 mmol/L (98-107); GLUCOSE 204 mg/dL (75-110); POTASSIUM 5.7 mmol/L (3.6-5.0); TOTAL PROTEIN 6.1 g/dL (6.3-8.2)
[2020-08-02] MEDS ORDERED: NORMAL SALINE 250 ML IV PRN ×2 (17:56)
--- NOTE | 2020-08-02 18:12 | RADIOLOGY REPORT (SQ) ---
EXAM DESCRIPTION: CHEST SINGLE VIEW IMAGES COMPLETED DATE/TIME: 08/02/2020 6:00 pm REASON FOR STUDY: sob vomiting COMPARISON: 07/18/2020 EXAM PARAMETERS: NUMBER OF VIEWS: One view. TECHNIQUE: Single frontal radiographic view of the chest acquired. RADIATION DOSE: NA LIMITATIONS: None. FINDINGS: LUNGS AND PLEURA: No opacities, masses or pneumothorax. No pleural effusion. MEDIASTINUM AND HILAR STRUCTURES: No masses. Contour normal. HEART AND VASCULAR STRUCTURES: Heart size is borderline. There is no pulmonary edema. BONES: No acute findings. HARDWARE: Sternotomy wires. OTHER: No other significant finding. IMPRESSION: Borderline heart size without sumeet pulmonary edema. TECHNICAL DOCUMENTATION: JOB ID: [id number] 2010 [employer]- All Rights Reserved Reading location - IP/workstation name: [email or web address]
[2020-08-02 19:31] LABS: ARTERIAL BLOOD BASE EXCESS -4.9 mmol/L; ARTERIAL BLOOD H2CO3 1.12 mmol/L (1.05-1.35); ARTERIAL BLOOD HCO3 20.2 mmol/L (20-24); ARTERIAL BLOOD PCO2 37.2 mmHg (35-45); ARTERIAL BLOOD PH 7.35 (7.35-7.45); ARTERIAL BLOOD PO2 158.6 mmHg (80-100); ARTERIAL BLOOD TOTAL CO2 21.4 mmol/L (21-25)
[2020-08-02 19:38] LABS: MEAN CORPUSCULAR HGB CONC 32.7 g/dL (32.0-36.0); RED BLOOD COUNT 1.61 10^6/uL (3.72-5.28); RED CELL DISTRIBUTION WIDTH 19.3 % (11.5-14.0); WHITE BLOOD COUNT 9.2 10^3/uL (4.0-10.5)
[2020-08-02 19:44] LABS: ARTERIAL BLOOD FIO2 4L
[2020-08-02 20:05] LABS: MEAN CORPUSCULAR VOLUME 89 fl (80-97)
[2020-08-02 20:13] LABS: ABSOLUTE LYMPHOCYTES# (MANUAL) 0.5 10^3/uL (0.5-4.7); ABSOLUTE MONOCYTES # (MANUAL) 0.3 10^3/uL (0.1-1.4); BASOPHILS % (MANUAL) 0 % (0-2); EOSINOPHILS % (MANUAL) 0 % (0-6); LYMPHOCYTES % (MANUAL) 5 % (13-45); MONOCYTES % (MANUAL) 3 % (3-13); SEGMENTED NEUTROPHILS % (MAN) 92 % (42-78); TOTAL CELLS COUNTED 100
[2020-08-02 20:15] LABS: ANISOCYTOSIS 2+; PLATELET CLUMPS PRESENT; PLATELET COMMENT ADEQUATE; POLYCHROMASIA 1+
[2020-08-02 20:16] LABS: HEMOGLOBIN 4.7 g/dL (12.0-15.5); PLATELET COUNT 175 10^3/uL (150-450)
[2020-08-02 20:17] LABS: HEMATOCRIT 14.3 % (36.0-47.0)
[2020-08-02 21:16] LABS: APPEARANCE,URINE CLEAR; BILIRUBIN,URINE NEGATIVE (NEGATIVE); COLOR,URINE YELLOW; GLUCOSE, URINE NEGATIVE (NEGATIVE); KETONES,URINE NEGATIVE (NEGATIVE); LEUKOCYTE ESTERASE,URINE NEGATIVE (NEGATIVE); NITRITE,URINE NEGATIVE (NEGATIVE); PROTEIN,URINE 100 mg/dL (NEGATIVE); URINE SPECIFIC GRAVITY 1.017; UROBILINOGEN,URINE NEGATIVE mg/dL (<2.0)
--- NOTE | 2020-08-02 21:20 | ER Document Report ---
ED General - General Chief Complaint: Nausea/Vomiting Stated Complaint: VOMITING, NAUSEA Time Seen by Provider: 08/02/20 16:44 TRAVEL OUTSIDE OF THE [place] IN LAST 30 DAYS: No - HPI Notes: Patient is a 49-year-old female with a past medical history of bilateral lower extremity amputations, diabetes, CABG, on Xarelto who presents with vomiting. Patient states that she woke up and had numerous episodes of vomiting. She denies any blood in the vomiting. She denies any diarrhea or abdominal pain. Patient states that her physical therapist came to the house today and thought that she did not look well and sent her to the ER. Patient denies any chest pain or shortness of breath. No headache. She did not fall or hit her head. States that she has been pale. Patient's stated that she has been unable to urinate for several days which is not normal for her. On arrival, patient is hypotensive. She was brought back to the room immediately. - Related Data Allergies/Adverse Reactions: amlodipine Allergy (Severe, Verified 08/02/20 16:44) Hallucinations isosorbide [From Imdur] Allergy (Intermediate, Verified 08/02/20 16:44) RASH zolpidem [From Ambien] Adverse Reaction (Severe, Verified 08/02/20 16:44) Hallucinations Home Medications: xarelto, hchol, htn .... Past Medical History - General Information source: Patient, Relative - Social History Smoking Status: Never Smoker Chew tobacco use (# tins/day): No Frequency of alcohol use: None Drug Abuse: None Family History: None, Reviewed & Not Pertinent, CAD, CVA, DM, Hypertension, Malignancy, Other - Kidney disease Patient has homicidal ideation: No - Past Medical History Cardiac Medical History: Reports: Hx Atrial Fibrillation, Hx Congestive Heart Failure, Hx Coronary Artery Disease, Hx DVT, Hx Heart Attack, Hx Hypercholesterolemia, Hx Hypertension, Hx Peripheral Vascular Disease Pulmonary Medical History: Reports: Hx Bronchitis, Hx COPD, Hx Pneumonia Neurological Medical History: Denies: Hx Migraine, Hx Seizures Endocrine Medical History: Reports: Hx Diabetes Mellitus Type 2. Denies: Hx Diabetes Mellitus Type 1, Hx Hyperthyroidism, Hx Hypothyroidism Renal/ Medical History: Reports: Hx Hemodialysis - Short-term for fluid overload only, Hx Kidney Stones, Hx Renal Insufficiency. Denies: Hx Peritoneal Dialysis GI Medical History: Reports: Hx Gastroesophageal Reflux Disease, Hx Hiatal Hernia, Hx Irritable Bowel. Denies: Hx Cirrhosis, Hx Crohn's Disease, Hx Hepatitis, Hx Ulcerative Colitis Musculoskeletal Medical History: Reports Hx Arthritis, Denies Hx Fibromyalgia, Denies Hx Gout, Reports Hx Musculoskeletal Deformity, Reports Hx Musculoskeletal Trauma Skin Medical History: Reports Hx Cellulitis, Denies Hx Eczema, Denies Hx Psoriasis Psychiatric Medical History: Reports: Hx Anxiety, Hx Depression Infectious Medical History: Denies: Hx Hepatitis Past Surgical History: Reports: Hx Abdominal Surgery, Hx Cardiac Verónica terization, Hx Cardiac Surgery - CABGx3, Hx Section - x2, Hx Cholecystectomy, Hx Coronary Artery Bypass Graft - x3, Hx Herniorrhaphy - Ventral hernia, Hx Orthopedic Surgery - R BKA,L AKA, Hx Tubal Ligation, Hx Vascular Surgery - Left iliofemoral bypass, Other - Peripheral nerve stimulator implantation - Immunizations Immunizations up to date: Yes Hx Diphtheria, Pertussis, Tetanus Vaccination: Yes Hx Pneumococcal Vaccination: 07/23/09 Review of Systems - Review of Systems Notes: CONSTITUTIONAL: No fever, fatigue or weight loss. SKIN: No rash. HENT: No congestion, ear pain, or sore throat. CARDIOVASCULAR: No chest pain or edema. RESPIRATORY: No cough, shortness of breath, congestion, or wheezing. GASTROINTESTINAL: No abdominal pain, bloody stools or diarrhea. Positive for nausea and vomiting. GENITOURINARY: No dysuria. Positive for decreased urination. MUSCULOSKELETAL: No joint pain or swelling. LYMPHATIC: No swollen glands. NEUROLOGIC: No seizures. No headache, focal weakness or sensory changes. HEMATOLOGIC: No unusual bruising or bleeding. PSYCHIATRIC: No depression or anxiety. Physical Exam - Vital signs Vitals: Temp Pulse Resp BP Pulse Ox 97.8 F 81 16 86/60 L 94 08/02/20 15:26 08/02/20 15:26 08/02/20 15:26 08/02/20 15:26 08/02/20 15:26 - General In distress: Moderate Notes: VITAL SIGNS: Hypotensive to the 80s on arrival. GENERAL: Moderate distress, appears pale. HEAD: Normal with no signs of head trauma. EYES: Conjunctiva normal, no discharge. EARS: Hearing grossly intact. NOSE: Normal. NECK: Normal range of motion, no tenderness, supple, no lymphadenopathy, No adenopathy, no JVD. CHEST: Clear breath sounds bilaterally. No wheezes, rales, or rhonchi. CARDIAC: Regular rate and rhythm. VASCULAR: No Edema. ABDOMEN: Normal and soft with no tenderness, no masses or pulsatile masses. Mild distention. GENITOURINARY: Normal, No tenderness MUSCULOSKELETAL: Left [id number] amputation and right below the knee amputation. NEUROLOGICAL: Alert and oriented x 3. No focal sensory or strength deficits. Speech normal. Follows commands appropriately. PSYCHIATRIC: Normal Affect, judgement and mood. Appears fatigued. SKIN: Normal appearance with no rashes or lesions. Course - Re-evaluation Re-evalutation: 08/02/20 21:15 Patient was started on fluids immediately from triage as she was hypotensive and her blood pressure has improved. Patient's hemoglobin returned at 4.7. She states she has had low blood counts in the past and has had transfusions but is not sure why. She denies any blood in the stool. She is post menopausal and is not having any vaginal bleeding. Patient was found to have 700 cc of urine in her bladder after Sims was placed due to retention. This is likely while her abdomen appeared distended. Awaiting testing for UTI. She has no evidence of pneumonia on her chest x-ray. Patient is receiving blood. Patient will need to be admitted for further care. Her EKG does show some ST depressions in lead two and slight elevation in aVR which is different from her previous. I did discuss with Dr. Luis, from cardiology, who stated that this was unlikely the cause of her symptoms. He stated that she could be admitted at this facility and he will see her in the morning as she is not having any chest pain and does not need to be transferred. Possibility could be demand ischemia as well as her h emoglobin is quite low. Patient is doing much better. Her blood pressure has improved. I discussed with hospitalist for admission. We are awaiting results of her Hemoccult test. 08/02/20 22:09 08/02/20 22:24 Patient did have a positive Hemoccult. I discussed with the surgeon who stated that she is able to stay at this facility. 08/02/20 22:28 Her ABG shows a high PO2, I turned down her oxygen to 2L and she has been tolerating it well. - Vital Signs Vital signs: Temp Pulse Resp BP Pulse Ox 98.2 F 69 16 100/62 100 08/03/20 19:20 08/03/20 19:20 08/03/20 19:20 08/03/20 20:00 08/03/20 19:20 - Laboratory Results Result Diagrams: 08/03/20 18:13 08/03/20 10:44 Laboratory Results Interpreted: 08/02/20 08/02/20 08/02/20 17:14 17:14 19:01 RBC Hgb Hct RDW Seg Neuts % (Manual) Lymphocytes % (Manual) Abs Neuts (Manual) ABG pO2 158.6 H ABG O2 Saturation 99.0 H Sodium 131.8 L Potassium 5.7 H Chloride 97 L Carbon Dioxide 21 L BUN 104 H Creatinine 2.90 H Est GFR ( Amer) 21 L Est GFR (MDRD) Non-Af 17 L Glucose 204 H Lactic Acid 4.9 H Direct Bilirubin 0.5 H AST 139 H Total Protein 6.1 L Albumin 3.4 L Urine Protein Urine Ascorbic Acid Crossmatch 08/02/20 08/02/20 08/02/20 19:05 19:05 20:52 RBC 1.61 L Hgb 4.7 L* Hct 14.3 L* RDW 19.3 H Seg Neuts % (Manual) 92 H Lymphocytes % (Manual) 5 L Abs Neuts (Manual) 8.5 H ABG pO2 ABG O2 Saturation Sodium Potassium Chloride Carbon Dioxide BUN Creatinine Est GFR ( Amer) Est GFR (MDRD) Non-Af Glucose Lactic Acid Direct Bilirubin AST Total Protein Albumin Urine Protein 100 H Urine Ascorbic Acid 40 H Crossmatch See Detail Critical Laboratory Results Reviewed: Yes Attending or Supervising Physician who Reviewed Labs: ISI MARTEL - Radiology Results Critical Radiology Results Reviewed: No Critical Results - EKG Interpretation by Me EKG shows normal: Sinus rhythm Rate: Normal Rhythm: NSR Additional EKG results interpreted by me: 08/02/20 21:22 Sinus rhythm at a rate of 78. First-degree AV block. QTc 543. ST depressions in lead II and lead I. Mild elevation in aVR. EKG is changed from previous. Critical Care Note - Critical Care Note Total time excluding time spent on procedures (mins): 45 Comments: Upon my evaluation, this patient had a high probability of imminent or life- threatening deterioration due to hypotension and anemia, which required my direct attention, intervention, and personal management. I have prescribed 45 minutes of critical care time. Time includes review of laboratory data, radiolo gy notes, discussion with consultants, and monitoring for potential decompensation. Interventions were performed as documented above. Discharge - Discharge Clinical Impression: Urinary retention Nausea and vomiting Qualifiers: Vomiting type: unspecified Vomiting Intractability: non-intractable Qualified Code(s): R11.2 - Nausea with vomiting, unspecified Anemia Qualifiers: Anemia type: unspecified type Qualified Code(s): D64.9 - Anemia, unspecified Hypotension Qualifiers: Hypotension type: unspecified hypotension type Qualified Code(s): I95.9 - Hypotension, unspecified Condition: Stable Disposition: ADMITTED INPATIENT Admitting Provider: Delmy (Hospitalist) Unit Admitted: [facility]
[2020-08-03] MEDS ORDERED: DEXTROSE 50%-WATER 25 GM/50 ML DISP.SYRIN IV PRN ×2 (00:11)
[2020-08-03] MEDS ORDERED: IPRATROPIUM/ALBUTEROL 0.5-2.5 MG/3 ML AMPUL NEB PRN (00:11)
[2020-08-03] MEDS ORDERED: ONDANSETRON 4 MG TAB.RAPDIS PO PRN (00:11)
[2020-08-03] MEDS ORDERED: ACETAMINOPHEN 325 MG TABLET PO PRN (00:11)
[2020-08-03] MEDS ORDERED: GLUCAGON,HUMAN RECOMB 1 MG INJ SUBCUT PRN (00:11)
[2020-08-03] MEDS ORDERED: DEXTROSE 40% GEL 15 GM TUBE PO PRN ×2 (00:11)
[2020-08-03] MEDS ORDERED: NITROGLYCERIN 0.4 MG/TAB 25 TAB/BOTTLE SL PRN (00:16)
--- NOTE | 2020-08-03 00:40 | PDOC H&P ---
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 fib on chronic Xarelto who presents to the ED with 1 day history of severe progressive shortness of breath/nausea/vomiting, found in ED to have a hemoglobin with acute drop down to 4.7. Hemoccult positive in ED. Orders for 2 units PRBC transfusion placed by ED physician. Patient somnolent on admission and rather poor historian due to somnolence. Close hemodynamic monitoring and respiratory monitoring will be required during and after transfusions as patient has significant CHF and may become volume overloaded. General surgery available for emergent endoscopy if patient has continued acute bleeding causing instability. Past Medical History Cardiac Medical History: Reports: Atrial Fibrillation, Congestive Heart Failure, Coronary Artery Disease, DVT, Myocardial Infarction, Hyperlipidema, Hypertension, Peripheral Vascular Disease Pulmonary Medical History: Reports: Bronchitis, Chronic Obstructive Pulmonary Disease (COPD), Pneumonia Neurological Medical History: Denies: Migraine, Seizures Endocrine Medical History: Reports: Diabetes Mellitus Type 2 Denies: Diabetes Mellitus Type 1, Hyperthyroidism, Hypothyroidism GI Medical History: Reports: Gastroesophageal Reflux Disease, Hiatal Hernia Denies: Cirrhosis, Crohn's Disease, Hepatitis, Ulcerative Colitis Musculoskeltal Medical History: Reports: Arthritis Denies: Fibromyalgia, Gout Skin Medical History: Denies: Eczema, Psoriasis Psychiatric Medical History: Reports: Depression Hematology: Reports: Anemia Denies: Bleeding Tendencies Past Surgical History Past Surgical History: Reports: Amputation - Right BKA, Left AKA, Cardiac Catheterization, Section - x2, Cholecystectomy, Coronary Artery Bypass Graft - x3, Herniorrhaphy - Ventral hernia, Orthopedic Surgery - R BKA,L AKA, Tubal Ligation, Vascular Surgery - Left iliofemoral bypass, Other - Peripheral nerve stimulator implantation Social History Smoking Status: Never Smoker Electronic Cigarette use?: No Frequency of Alcohol Use: None Hx Recreational Drug Use: No Drugs: None Hx Prescription Drug Abuse: No - Advance Directive Resuscitation Status: Full Code Surrogate healthcare decision maker:: Admitting diagnosis: Acute GI bleed All aspects of code status discussed with patient/POA including cardioversion, chest compressions, and intubation and the patient/POA indicated they wish to be full code MPOA is designated as: Spouse, Zay Decker Time spent: Greater than 16 minutes Family History Family History: None, Reviewed & Not Pertinent, CAD, CVA, DM, Hypertension, Malignancy, Other - Kidney disease Parental Family History Reviewed: Yes Children Family History Reviewed: Yes Sibling(s) Family History Reviewed.: Yes Medication/Allergy Home Medications: Ascorbic Acid [Vitamin C] 500 mg PO DAILY 06/27/20 Aspirin [Lo-Dose Aspirin EC] 81 mg PO DAILY 06/27/20 Baclofen [Baclofen 10 mg Tablet] 10 mg PO QIDP PRN 06/27/20 Buspirone HCl 7.5 mg PO BID 06/27/20 Carvedilol [Coreg 3.125 mg Tablet] 3.125 mg PO Q12 06/27/20 Citalopram Hydrobromide [Citalopram HBr] 40 mg PO DAILY 06/27/20 Ergocalciferol (Vitamin D2) [Drisdol 50,000 unit (1.25MG) Capsule] 1 cap PO MO@1000 06/27/20 Fenofibrate Nanocrystallized [Tricor 145 mg Tablet] 145 mg PO DAILY 06/27/20 Gabapentin [Neurontin 300 mg Capsule] 600 mg PO Q6 06/27/20 Insulin Glargine,Hum.rec.anlog [Lantus Insulin 100 Unit/1 ml 10 ml] 20 unit SUBCUT QHS 06/27/20 Insulin Regular, Human [Humulin R (Reg) Insulin 100 unit/mL] 8 unit SUBCUT AC 06/27/20 Metoclopramide HCl [Reglan 10 mg Tablet] 10 mg PO ACHS 06/27/20 Multivitamin [Tab-A-Mariela (Multiple Vitamin) Tablet] 1 tab PO DAILY 06/27/20 Nitroglycerin [Nitrostat 0.4 mg (1/150 Gr) Tabs 25/Bottle] 1 tab SL Q5MP PRN 06/27/20 [place]-3 Acid Ethyl Esters [Lovaza 1 gm Capsule] 4 gm PO DAILY 06/27/20 Ondansetron [Zofran Odt 4 mg Tablet] 8 mg PO Q6HP PRN 06/27/20 Oxycodone HCl [Oxy-Ir 5 mg Tablet] 10 mg PO TIDP PRN 06/27/20 Rivaroxaban [Xarelto] 20 mg PO QPM 06/27/20 Silver Sulfadiazine [Silvadene 1% Cream 25 gm] 1 applic TOP DAILY 06/27/20 Trazodone HCl [Desyrel 50 mg Tablet] 50 mg PO QHS 06/27/20 Atorvastatin Calcium [Lipitor 80 mg Tablet] 80 mg PO QHS tablet 06/30/20 Calcitriol [Rocaltrol 0.25 mcg Capsule] 0.25 mcg PO TUTHSA #12 capsule 06/30/20 Ferrous Sulfate [Feosol 325 mg Tablet] 325 mg PO BID tablet 06/30/20 Pantoprazole Sodium [Protonix [address] Tablet] 40 mg PO Q6AM tablet.dr 06/30/20 Nitrofurantoin Monohyd/M-Cryst [Macrobid 100 mg Capsule] 100 mg PO BID 5 Days #10 cap 07/20/20 Allergies/Adverse Reactions: amlodipine Allergy (Severe, Verified 08/02/20 16:44) Hallucinations isosorbide [From Imdur] Allergy (Intermediate, Verified 08/02/20 16:44) RASH zolpidem [From Ambien] Adverse Reaction (Severe, Verified 08/02/20 16:44) Hallucinations Review of Systems All systems: reviewed and no additional remarkable complaints except as stated - Per HPI otherwise negative Physical Exam Vital Signs: Temp Pulse Resp BP Pulse Ox 98.0 F 80 12 107/76 100 08/02/20 22:44 08/02/20 22:44 08/02/20 22:44 08/02/20 23:15 08/02/20 23:15 Intake & Output 08/01/20 08/02/20 08/03/20 06:59 06:59 06:59 Intake Total 1982 Balance 1982 Exam: General appearance: PRESENT: no acute distress, chronically ill-appearing white female who appears much older than stated age, somnolent Head exam: PRESENT: atraumatic, normocephalic Eye exam: PRESENT: conjunctiva pale ABSENT: scleral icterus Mouth exam: PRESENT: moist dry Respiratory exam: PRESENT: clear to auscultation amaya. ABSENT: rales, rhonchi, wheezes Cardiovascular exam: PRESENT: RRR. ABSENT: diastolic murmur, rubs, systolic murmur GI/Abdominal exam: PRESENT: normal bowel sounds, soft. ABSENT: distended, guarding, mass, organolmegaly, rebound, tenderness Neurological exam: PRESENT: Intermittently alert and awake but mostly somnolent, oriented to person, oriented to place, oriented to time, oriented to situation Psychiatric exam: PRESENT: appropriate affect, normal mood Skin exam: PRESENT: dry, intact, warm; bilateral lower extremity amputations noted Results Laboratory Results: 08/02/20 19:05 08/02/20 17:14 08/02/20 08/02/20 08/02/20 17:14 17:14 17:14 WBC Cancelled RBC Cancelled Hgb Cancelled Hct Cancelled MCV Cancelled MCH Cancelled MCHC Cancelled RDW Cancelled Plt Count Cancelled Seg Neutrophils % Cancelled Carbonic Acid HCO3/H2CO3 Ratio ABG pH ABG pCO2 ABG pO2 ABG HCO3 ABG O2 Saturation ABG Base Excess FiO2 Sodium 131.8 L Potassium 5.7 H Chloride 97 L Carbon Dioxide 21 L Anion Gap 14 BUN 104 H Creatinine 2.90 H Est GFR ( Amer) 21 L Glucose 204 H Lactic Acid 4.9 H Calcium 8.4 Total Bilirubin 0.6 AST 139 H Alkaline Phosphatase 46 Total Protein 6.1 L Albumin 3.4 L Urine Color Urine Appearance Urine pH Ur Specific [place] Urine Protein Urine Glucose (UA) Urine Ketones Urine Blood Urine Nitrite Ur Leukocyte Esterase Urine WBC (Auto) Urine RBC (Auto) Blood Type Antibody Screen 08/02/20 08/02/20 08/02/20 19:01 19:05 19:05 WBC 9.2 RBC 1.61 L Hgb 4.7 L* Hct 14.3 L* MCV 89 D MCH 29.0 MCHC 32.7 RDW 19.3 H Plt Count 175 Seg Neutrophils % Not Reportable Carbonic Acid 1.12 HCO3/H2CO3 Ratio 18:1 ABG pH 7.35 ABG pCO2 37.2 ABG pO2 158.6 H ABG HCO3 20.2 ABG O2 Saturation 99.0 H ABG Base Excess -4.9 FiO2 4L Sodium Potassium Chloride Carbon Dioxide Anion Gap BUN Creatinine Est GFR ( Amer) Glucose Lactic Acid Calcium Total Bilirubin AST Alkaline Phosphatase Total Protein Albumin Urine Color Urine Appearance Urine pH Ur Specific [place] Urine Protein Urine Glucose (UA) Urine Ketones Urine Blood Urine Nitrite Ur Leukocyte Esterase Urine WBC (Auto) Urine RBC (Auto) Blood Type O POSITIVE Antibody Screen NEGATIVE 08/02/20 08/02/20 20:52 22:52 WBC RBC Hgb Hct MCV MCH MCHC RDW Plt Count Seg Neutrophils % Carbonic Acid HCO3/H2CO3 Ratio ABG pH ABG pCO2 ABG pO2 ABG HCO3 ABG O2 Saturation ABG Base Excess FiO2 Sodium Potassium Chloride Carbon Dioxide Anion Gap BUN Creatinine Est GFR ( Amer) Glucose Lactic Acid 1.8 Calcium Total Bilirubin AST Alkaline Phosphatase Total Protein Albumin Urine Color YELLOW Urine Appearance CLEAR Urine pH 5.0 Ur Specific [place] 1.017 Urine Protein 100 H Urine Glucose (UA) NEGATIVE Urine Ketones NEGATIVE Urine Blood NEGATIVE Urine Nitrite NEGATIVE Ur Leukocyte Esterase NEGATIVE Urine WBC (Auto) 0 Urine RBC (Auto) 1 Blood Type Antibody Screen 08/02/20 08/02/20 17:14 22:52 Troponin I 0.046 1.870 Impressions: Chest X-Ray 08/02/20 17:30 IMPRESSION: Borderline heart size without sumeet pulmonary edema. Assessment and Plan - Diagnosis (1) Acute GI bleeding Is this a current diagnosis for this admission?: Yes Plan: Hemoccult positive, causing symptomatic anemia GI consulted, general surgery available for emergent endoscopy for unstable bleeding Trend CBC Needs endoscopy IV PPI Transfused 2 units PRBC in ED (2) Acute blood loss anemia Is this a current diagnosis for this admission?: Yes Plan: Due to GI bleed as above (3) Acute kidney injury superimposed on CKD Is this a current diagnosis for this admission?: Yes Plan: Likely prerenal due to acute blood loss anemia Trend BMP Transfuse PRBC as above (4) Nausea and vomiting Qualifiers: Vomiting type: unspecified Vomiting Intractability: non-intractable Qualified Code(s): R11.2 - Nausea with vomiting, unspecified Is this a current diagnosis for this admission?: Yes Plan: Antiemetics, home dose prokinetics (5) CAD (coronary artery disease), bois forte coronary artery Qualifiers: Is this a current diagnosis for this admission?: Yes Plan: Home cardiac medications (6) COPD (chronic obstructive pulmonary disease) Qualifiers: COPD type: unspecified COPD Qualified Code(s): J44.9 - Chronic obstructive pulmonary disease, unspecified Is this a current diagnosis for this admission?: Yes Plan: Nebs as needed (7) Chronic diastolic heart failure Is this a current diagnosis for this admission?: Yes Plan: Cardiac meds restarted May need additional doses of Lasix after transfusion if he becomes volume overloaded, monitor closely (8) Diabetes mellitus type 2 in obese Is this a current diagnosis for this admission?: Yes Plan: T2DM -accucheks, sliding scale insulin -long acting insulin indicated for HgA1C of 10 or greater -diet counseling -outpt FU with PCP Reduce dose long-acting insulin while n.p.o. (9) Hypertension Qualifiers: Hypertension type: essential hypertension Qualified Code(s): I10 - Essential (primary) hypertension Is this a current diagnosis for this admission?: Yes Plan: Home meds (10) S/P CABG x 3 Is this a current diagnosis for this admission?: Yes - Time Time Spent with patient: 35 or more minutes Medications reviewed and adjusted accordingly: Yes Anticipated Discharge Disposition: Home with Home Health Anticipated Discharge Timeframe: within 72 hours - Inpatient Certification Based on my medical assessment, after consideration of the patient's comorbidities, presenting symptoms, or acuity I expect that the services needed warrant INPATIENT care.: Yes I certify that my determination is in accordance with my understanding of Medicare's requirements for reasonable and necessary INPATIENT services [42 CFR 412.3e].: Yes Medical Necessity: Significant Comorbidiites Make Outpatient Treatment Too Risky, Need Close Monitoring Due to Risk of Patient Decompensation, Risk of Complication if Not Cared For in Hospital, Risk of Diagnosis Which Will Require Inpatient Eval/Care/Monitoring
[2020-08-03] MEDS: ONDANSETRON HCL INJ/PF 4 MG/2 ML SDV IV PRN ×2 (00:57→05:08)
[2020-08-03] MEDS: GABAPENTIN 300 MG CAPSULE PO SCH ×4 (05:05→23:09)
[2020-08-03] MEDS: OXYCODONE HCL IR 5 MG TABLET PO PRN ×2 (05:08→21:27)
[2020-08-03 06:35] LABS: ABSOLUTE LYMPHOCYTES (AUTO) 0.6 10^3/uL (0.5-4.7); ABSOLUTE MONOCYTES (AUTO) 0.5 10^3/uL (0.1-1.4); ABSOLUTE NEUT (AUTO) 9.9 10^3/uL (1.7-8.2); BASOPHILS % (AUTO) 0.3 % (0-2); HEMATOCRIT 20.5 % (36.0-47.0); LYMPHOCYTES % (AUTO) 5.8 % (13-45); MEAN CORPUSCULAR HEMOGLOBIN 29.1 pg (27.0-33.4); MEAN CORPUSCULAR HGB CONC 32.7 g/dL (32.0-36.0); MEAN CORPUSCULAR VOLUME 89 fl (80-97); MONOCYTES % (AUTO) 4.8 % (3-13); PLATELET COUNT 187 10^3/uL (150-450); RED CELL DISTRIBUTION WIDTH 17.4 % (11.5-14.0); SEGMENTED NEUTROPHILS % (AUTO) 89.1 % (42-78); TOTAL CELLS COUNTED % (AUTO) 100 %; WHITE BLOOD COUNT 11.1 10^3/uL (4.0-10.5)
[2020-08-03 06:46] LABS: HEMOGLOBIN 6.7 g/dL (12.0-15.5)
[2020-08-03 07:01] LABS: PHOSPHORUS 5.6 mg/dL (2.5-4.5)
[2020-08-03] MEDS: METOCLOPRAMIDE HCL 10 MG TABLET PO SCH ×4 (08:40→21:27)
[2020-08-03] MEDS: PANTOPRAZOLE SODIUM 40 MG VIAL IV SCH ×2 (09:40→21:26)
[2020-08-03] MEDS: CARVEDILOL 3.125 MG TABLET PO SCH ×2 (09:40→21:27)
[2020-08-03] MEDS: FENOFIBRATE NANOCRYSTALLIZED 145 MG TABLET PO SCH (09:40)
[2020-08-03] MEDS: FERROUS SULFATE 325 MG TABLET PO SCH ×2 (09:40→17:19)
[2020-08-03] MEDS: OMEGA-3 ACID ETHYL ESTERS 1 GM CAPSULE PO SCH (09:40)
[2020-08-03] MEDS: DOCUSATE SODIUM 100 MG CAPSULE PO SCH (09:42)
[2020-08-03] MEDS: INSULIN LISPRO 100 UNIT/ML 3 ML VIAL SUBCUT SCH ×4 (09:42→21:28)
[2020-08-03] MEDS: INSULIN REG, HUMAN 100 UNIT/ML 3 ML VIAL (PYX) SUBCUT SCH ×3 (09:42→16:22)
--- NOTE | 2020-08-03 09:51 | EKG REPORT ---
SEVERITY:- ABNORMAL ECG - SINUS RHYTHM FIRST DEGREE AV BLOCK NONSPECIFIC IVCD WITH LAD : Confirmed by: Latha Thakkar MD 03-Aug-2020 09:51:05
[2020-08-03] MEDS ORDERED: NORMAL SALINE 250 ML IV PRN ×2 (10:14)
[2020-08-03] MEDS ORDERED: BUMETANIDE 1 MG TABLET PO SCH (11:00)
[2020-08-03 11:11] LABS: INTERNATIONAL RATION (INR) 1.77; PROTHROMBIN TIME 20.7 SEC (11.4-15.4)
[2020-08-03 11:12] LABS: PARTIAL THROMBOPLASTIN TIME 34.1 SEC (23.5-35.8)
[2020-08-03] MEDS: SACUBITRIL/VALSARTAN 24 MG/26 MG TABLET PO SCH ×2 (11:29→21:27)
[2020-08-03 11:33] LABS: ANION GAP 8 (5-19); BLOOD UREA NITROGEN 102 mg/dL (7-20); CALCIUM 8.2 mg/dL (8.4-10.2); CARBON DIOXIDE 26 mmol/L (22-30); CHLORIDE 103 mmol/L (98-107); GLUCOSE 151 mg/dL (75-110)
[2020-08-03] MEDS ORDERED: BUMETANIDE INJ/PF 1 MG/4 ML SDV IV ONE (12:00)
--- NOTE | 2020-08-03 12:36 | PDOC CONSULTATION ---
Consultation Consult Date: 08/03/20 Provider Consulted: JADE DEL ROSARIO Consult reason:: ? gi bleed , anemia History of Present Illness Admission Date/PCP: 08/02/20 22:43 SALOMON RODRIGUEZ History of Present Illness: HELDER SERNA is a 49 year old female asked to see this patient by he Hospitalist had previous admission where GI had already been completed , seen Dr Rowley who perfomed both EGD and colonoscopy and exclude reasons for acute GI bleeding patient readmitted, has CHF patient noted to be weak Hgb is low ,seems to have trended down since discharge patient does not report ongoing bleeding denies any melena I was called since GI hospital account liaison however not sure repeating EGD and colonoscopy would add any further information I recommended a bleeding scan if negative, then would consider heme onc consult Past Medical History Cardiac Medical History: Reports: Atrial Fibrillation, Congestive Heart Failure, Coronary Artery Disease, DVT, Myocardial Infarction, Hyperlipidema, Hypertension, Peripheral Vascular Disease Pulmonary Medical History: Reports: Bronchitis, Chronic Obstructive Pulmonary Disease (COPD), Pneumonia Neurological Medical History: Denies: Migraine, Seizures Endocrine Medical History: Reports: Diabetes Mellitus Type 2 Denies: Diabetes Mellitus Type 1, Hyperthyroidism, Hypothyroidism GI Medical History: Reports: Gastroesophageal Reflux Disease, Hiatal Hernia Denies: Cirrhosis, Crohn's Disease, Hepatitis, Ulcerative Colitis Musculoskeltal Medical History: Reports: Arthritis Denies: Fibromyalgia, Gout Skin Medical History: Denies: Eczema, Psoriasis Psychiatric Medical History: Reports: Depression Hematology: Reports: Anemia Denies: Bleeding Tendencies Past Surgical History Past Surgical History: Reports: Amputation - Right BKA, Left AKA, Cardiac Catheterization, Section - x2, Cholecystectomy, Coronary Artery Bypass Graft - x3, Herniorrhaphy - Ventral hernia, Orthopedic Surgery - R BKA,L AKA, Tubal Ligation, Vascular Surgery - Left iliofemoral bypass, Other - Peripheral nerve stimulator implantation Social History Smoking Status: Former Smoker Electronic Cigarette use?: No Frequency of Alcohol Use: None Hx Recreational Drug Use: No Drugs: None Hx Prescription Drug Abuse: No - Advance Directive Resuscitation Status: Full Code Family History Family History: None, Reviewed & Not Pertinent, CAD, CVA, DM, Hypertension, Malignancy, Other - Kidney disease Parental Family History Reviewed: Yes Children Family History Reviewed: Unknown Sibling(s) Family History Reviewed.: Unknown Medication/Allergy Home Medications: Ascorbic Acid [Vitamin C] 500 mg PO DAILY 06/27/20 Aspirin [Lo-Dose Aspirin EC] 81 mg PO DAILY 06/27/20 Baclofen [Baclofen 10 mg Tablet] 10 mg PO QIDP PRN 06/27/20 Buspirone HCl 7.5 mg PO BID 06/27/20 Carvedilol [Coreg 3.125 mg Tablet] 3.125 mg PO Q12 06/27/20 Citalopram Hydrobromide [Citalopram HBr] 40 mg PO DAILY 06/27/20 Ergocalciferol (Vitamin D2) [Drisdol 50,000 unit (1.25MG) Capsule] 1 cap PO MO@1000 06/27/20 Fenofibrate Nanocrystallized [Tricor 145 mg Tablet] 145 mg PO DAILY 06/27/20 Gabapentin [Neurontin 300 mg Capsule] 600 mg PO Q6 06/27/20 Insulin Glargine,Hum.rec.anlog [Lantus Insulin 100 Unit/1 ml 10 ml] 20 unit SUBCUT QHS 06/27/20 Insulin Regular, Human [Humulin R (Reg) Insulin 100 unit/mL] 8 unit SUBCUT AC 06/27/20 Metoclopramide HCl [Reglan 10 mg Tablet] 10 mg PO ACHS 06/27/20 Multivitamin [Tab-A-Mariela (Multiple Vitamin) Tablet] 1 tab PO DAILY 06/27/20 Nitroglycerin [Nitrostat 0.4 mg (1/150 Gr) Tabs 25/Bottle] 1 tab SL Q5MP PRN 06/27/20 [place]-3 Acid Ethyl Esters [Lovaza 1 gm Capsule] 4 gm PO DAILY 06/27/20 Ondansetron [Zofran Odt 4 mg Tablet] 8 mg PO Q6HP PRN 06/27/20 Oxycodone HCl [Oxy-Ir 5 mg Tablet] 10 mg PO TIDP PRN 06/27/20 Rivaroxaban [Xarelto] 20 mg PO QPM 06/27/20 Silver Sulfadiazine [Silvadene 1% Cream 25 gm] 1 applic TOP DAILY 06/27/20 Trazodone HCl [Desyrel 50 mg Tablet] 50 mg PO QHS 06/27/20 Atorvastatin Calcium [Lipitor 80 mg Tablet] 80 mg PO QHS tablet 06/30/20 Bumetanide 3 mg PO BID 08/03/20 Calcitriol [Rocaltrol] 0.25 mcg PO TUTHSA 08/03/20 Ferrous Sulfate [Feosol 325 mg Tablet] 650 mg PO Q2D 08/03/20 Pantoprazole Sodium 40 mg PO DAILY 08/03/20 Potassium Chloride 20 meq PO BID 08/03/20 Sacubitril/Valsartan [Entresto 24 mg/26 mg Tablet] 1 tab PO Q12 08/03/20 Allergies/Adverse Reactions: amlodipine Allergy (Severe, Verified 08/02/20 16:44) Hallucinations isosorbide [From Imdur] Allergy (Intermediate, Verified 08/02/20 16:44) RASH zolpidem [From Ambien] Adverse Reaction (Severe, Verified 08/02/20 16:44) Hallucinations Review of Systems Constitutional: ABSENT: fever(s), headache(s), night sweats Eyes: ABSENT: visual disturbances Ears: ABSENT: hearing changes Nose, Mouth, and Throat: ABSENT: mouth pain Cardiovascular: PRESENT: edema, orthropnea Respiratory: PRESENT: dyspnea. ABSENT: hemoptysis Gastrointestinal: ABSENT: hematemesis, hematochezia, melena Genitourinary: ABSENT: hematuria Integumentary: ABSENT: lesions, pruritus Neurological: ABSENT: syncope, tingling, tremor(s), vertigo Endocrine: ABSENT: polydipsia, polyphagia, polyuria Hematologic/Lymphatic: ABSENT: easy bruising Physical Exam Vital Signs: Temp Pulse Resp BP Pulse Ox 98.0 F 75 18 108/51 L 99 08/03/20 11:54 08/03/20 11:54 08/03/20 11:54 08/03/20 11:54 08/03/20 11:54 Intake & Output 08/02/20 08/03/20 08/04/20 06:59 06:59 06:59 Intake Total 2343 0 Output Total 1400 Balance 943 0 Weight 79.5 kg General appearance: PRESENT: no acute distress, well-developed, well-nourished Head exam: PRESENT: atraumatic, normocephalic Eye exam: PRESENT: EOMI, PERRLA. ABSENT: nystagmus, scleral icterus Mouth exam: PRESENT: moist, neck supple Throat exam: ABSENT: tonsillar exudate, tonsillogmegaly Neck exam: ABSENT: meningismus, tenderness, thyromegaly Respiratory exam: PRESENT: symmetrical, unlabored. ABSENT: tachypnea Cardiovascular exam: PRESENT: irregular rhythm Musculoskeletal exam: PRESENT: full ROM Neurological exam: PRESENT: oriented to time, oriented to situation Focused psych exam: ABSENT: restlessness Skin exam: PRESENT: normal color. ABSENT: mottled, pallor, urticaria, vesicles Results Laboratory Results: 08/03/20 06:17 08/02/20 08/02/20 08/02/20 17:14 17:14 17:14 WBC Cancelled RBC Cancelled Hgb Cancelled Hct Cancelled MCV Cancelled MCH Cancelled MCHC Cancelled RDW Cancelled Plt Count Cancelled Seg Neutrophils % Cancelled Carbonic Acid HCO3/H2CO3 Ratio ABG pH ABG pCO2 ABG pO2 ABG HCO3 ABG O2 Saturation ABG Base Excess FiO2 Sodium 131.8 L Potassium 5.7 H Chloride 97 L Carbon Dioxide 21 L Anion Gap 14 BUN 104 H Creatinine 2.90 H Est GFR ( Amer) 21 L Glucose 204 H Lactic Acid 4.9 H Calcium 8.4 Phosphorus Magnesium Total Bilirubin 0.6 AST 139 H Alkaline Phosphatase 46 Total Protein 6.1 L Albumin 3.4 L Urine Color Urine Appearance Urine pH Ur Specific [place] Urine Protein Urine Glucose (UA) Urine Ketones Urine Blood Urine Nitrite Ur Leukocyte Esterase Urine WBC (Auto) Urine RBC (Auto) Blood Type Antibody Screen 08/02/20 08/02/20 08/02/20 19:01 19:05 19:05 WBC 9.2 RBC 1.61 L Hgb 4.7 L* Hct 14.3 L* MCV 89 D MCH 29.0 MCHC 32.7 RDW 19.3 H Plt Count 175 Seg Neutrophils % Not Reportable Carbonic Acid 1.12 HCO3/H2CO3 Ratio 18:1 ABG pH 7.35 ABG pCO2 37.2 ABG pO2 158.6 H ABG HCO3 20.2 ABG O2 Saturation 99.0 H ABG Base Excess -4.9 FiO2 4L Sodium Potassium Chloride Carbon Dioxide Anion Gap BUN Creatinine Est GFR ( Amer) Glucose Lactic Acid Calcium Phosphorus Magnesium Total Bilirubin AST Alkaline Phosphatase Total Protein Albumin Urine Color Urine Appearance Urine pH Ur Specific [place] Urine Protein Urine Glucose (UA) Urine Ketones Urine Blood Urine Nitrite Ur Leukocyte Esterase Urine WBC (Auto) Urine RBC (Auto) Blood Type O POSITIVE Antibody Screen NEGATIVE 08/02/20 08/02/20 08/03/20 20:52 22:52 06:17 WBC 11.1 H RBC 2.30 L Hgb 6.7 L Hct 20.5 L MCV 89 MCH 29.1 MCHC 32.7 RDW 17.4 H Plt Count 187 Seg Neutrophils % 89.1 H Carbonic Acid HCO3/H2CO3 Ratio ABG pH ABG pCO2 ABG pO2 ABG HCO3 ABG O2 Saturation ABG Base Excess FiO2 Sodium Potassium Chloride Carbon Dioxide Anion Gap BUN Creatinine Est GFR ( Amer) Glucose Lactic Acid 1.8 Calcium Phosphorus Magnesium Total Bilirubin AST Alkaline Phosphatase Total Protein Albumin Urine Color YELLOW Urine Appearance CLEAR Urine pH 5.0 Ur Specific [place] 1.017 Urine Protein 100 H Urine Glucose (UA) NEGATIVE Urine Ketones NEGATIVE Urine Blood NEGATIVE Urine Nitrite NEGATIVE Ur Leukocyte Esterase NEGATIVE Urine WBC (Auto) 0 Urine RBC (Auto) 1 Blood Type Antibody Screen 08/03/20 06:17 WBC RBC Hgb Hct MCV MCH MCHC RDW Plt Count Seg Neutrophils % Carbonic Acid HCO3/H2CO3 Ratio ABG pH ABG pCO2 ABG pO2 ABG HCO3 ABG O2 Saturation ABG Base Excess FiO2 Sodium Potassium Chloride Carbon Dioxide Anion Gap BUN Creatinine Est GFR ( Amer) Glucose Lactic Acid Calcium Phosphorus 5.6 H Magnesium 3.0 H Total Bilirubin AST Alkaline Phosphatase Total Protein Albumin Urine Color Urine Appearance Urine pH Ur Specific [place] Urine Protein Urine Glucose (UA) Urine Ketones Urine Blood Urine Nitrite Ur Leukocyte Esterase Urine WBC (Auto) Urine RBC (Auto) Blood Type Antibody Screen 08/02/20 08/02/20 08/03/20 17:14 22:52 10:44 Troponin I 0.046 1.870 9.440 Impressions: Chest X-Ray 08/02/20 17:30 IMPRESSION: Borderline heart size without sumeet pulmonary edema. Assessment & Plan - Diagnosis (1) Chronic anemia Plan: no symptoms of GI bleeding EGD and colonoscopy done last month < 1 month ago was negative bleeding scan at best no capsule here to evaluate small bowel consider Heme onc consult as needed no further need to repeat EGD and colonoscopy procedure notes reviewed that was performed by Dr Rowley - Time Time Spent: 50 to 70 Minutes
[2020-08-03 12:51] LABS: POTASSIUM 4.5 mmol/L (3.6-5.0)
[2020-08-03 13:17] LABS: PATH REVIEW PATHOLOGIST REVIEWED
--- NOTE | 2020-08-03 15:02 | RADIOLOGY REPORT (SQ) ---
EXAM DESCRIPTION: NM GI BLEED SCAN IMAGES COMPLETED DATE/TIME: 08/03/2020 2:48 pm REASON FOR STUDY: Acute Blood loss. Source unknown. COMPARISON: None. RADIONUCLIDE AND DOSE: 25.1 millicuries Technetium-labeled red blood cells. The route of agent administration: Intravenous. TECHNIQUE: Serial arterial-phase images acquired for 80 seconds immediately following injection of r adionuclide. Additional 60 images acquired at 60 seconds per image. LIMITATIONS: None. FINDINGS: Flow images without focal areas of abnormal radionuclide location. Serial images show no abnormal accumulation of radionuclide. IMPRESSION: NORMAL RADIONUCLIDE GASTROINTESTINAL BLEEDING STUDY. TECHNICAL DOCUMENTATION: JOB ID: [id number] 2010 [employer]- All Rights Reserved Reading location - IP/workstation name: [email or web address]
--- NOTE | 2020-08-03 17:24 | PDOC PROGRESS REPORT ---
Subjective Date:: 08/03/20 Subjective:: Discussed with patient this morning. She denied any chest pain at the time. Wa s having some shortness of breath but improved since presentation. She has self has not noted any bloody stools. I did speak with the via phone call and he states that he has noted melena for the past 3 days. Reason For Visit: ACUTE LOWER GI BLEED, ACUTE BLOOD LOSS ANEMIA, Physical Exam Vital Signs: Temp Pulse Resp BP Pulse Ox 98.2 F 69 18 97/57 L 97 08/03/20 16:09 08/03/20 16:09 08/03/20 16:09 08/03/20 16:09 08/03/20 16:09 Intake & Output 08/02/20 08/03/20 08/04/20 06:59 06:59 06:59 Intake Total 2343 950 Output Total 1400 Balance 943 950 Weight 79.5 kg General appearance: PRESENT: no acute distress, cooperative. ABSENT: mild distress, morbidly obese Neck exam: ABSENT: JVD Respiratory exam: PRESENT: crackles, symmetrical, unlabored. ABSENT: tachypnea, wheezes Cardiovascular exam: PRESENT: RRR, +S1, +S2. ABSENT: tachycardia GI/Abdominal exam: PRESENT: soft. ABSENT: rebound, rigid, tenderness Extremities exam: PRESENT: other - b/l amputee Neurological exam: PRESENT: alert, awake, oriented to person, oriented to place, oriented to time, oriented to situation Focused psych exam: ABSENT: pressured speech Results Laboratory Results: 08/03/20 06:17 08/03/20 10:44 08/02/20 08/02/20 08/02/20 17:14 17:14 17:14 WBC Cancelled RBC Cancelled Hgb Cancelled Hct Cancelled MCV Cancelled MCH Cancelled MCHC Cancelled RDW Cancelled Plt Count Cancelled Seg Neutrophils % Cancelled Carbonic Acid HCO3/H2CO3 Ratio ABG pH ABG pCO2 ABG pO2 ABG HCO3 ABG O2 Saturation ABG Base Excess FiO2 Sodium 131.8 L Potassium 5.7 H Chloride 97 L Carbon Dioxide 21 L Anion Gap 14 BUN 104 H Creatinine 2.90 H Est GFR ( Amer) 21 L Glucose 204 H Lactic Acid 4.9 H Calcium 8.4 Phosphorus Magnesium Total Bilirubin 0.6 AST 139 H Alkaline Phosphatase 46 Total Protein 6.1 L Albumin 3.4 L Urine Color Urine Appearance Urine pH Ur Specific [place] Urine Protein Urine Glucose (UA) Urine Ketones Urine Blood Urine Nitrite Ur Leukocyte Esterase Urine WBC (Auto) Urine RBC (Auto) Blood Type Antibody Screen 08/02/20 08/02/20 08/02/20 19:01 19:05 19:05 WBC 9.2 RBC 1.61 L Hgb 4.7 L* Hct 14.3 L* MCV 89 D MCH 29.0 MCHC 32.7 RDW 19.3 H Plt Count 175 Seg Neutrophils % Not Reportable Carbonic Acid 1.12 HCO3/H2CO3 Ratio 18:1 ABG pH 7.35 ABG pCO2 37.2 ABG pO2 158.6 H ABG HCO3 20.2 ABG O2 Saturation 99.0 H ABG Base Excess -4.9 FiO2 4L Sodium Potassium Chloride Carbon Dioxide Anion Gap BUN Creatinine Est GFR ( Amer) Glucose Lactic Acid Calcium Phosphorus Magnesium Total Bilirubin AST Alkaline Phosphatase Total Protein Albumin Urine Color Urine Appearance Urine pH Ur Specific [place] Urine Protein Urine Glucose (UA) Urine Ketones Urine Blood Urine Nitrite Ur Leukocyte Esterase Urine WBC (Auto) Urine RBC (Auto) Blood Type O POSITIVE Antibody Screen NEGATIVE 08/02/20 08/02/20 08/03/20 20:52 22:52 06:17 WBC 11.1 H RBC 2.30 L Hgb 6.7 L Hct 20.5 L MCV 89 MCH 29.1 MCHC 32.7 RDW 17.4 H Plt Count 187 Seg Neutrophils % 89.1 H Carbonic Acid HCO3/H2CO3 Ratio ABG pH ABG pCO2 ABG pO2 ABG HCO3 ABG O2 Saturation ABG Base Excess FiO2 Sodium Potassium Chloride Carbon Dioxide Anion Gap BUN Creatinine Est GFR ( Amer) Glucose Lactic Acid 1.8 Calcium Phosphorus Magnesium Total Bilirubin AST Alkaline Phosphatase Total Protein Albumin Urine Color YELLOW Urine Appearance CLEAR Urine pH 5.0 Ur Specific [place] 1.017 Urine Protein 100 H Urine Glucose (UA) NEGATIVE Urine Ketones NEGATIVE Urine Blood NEGATIVE Urine Nitrite NEGATIVE Ur Leukocyte Esterase NEGATIVE Urine WBC (Auto) 0 Urine RBC (Auto) 1 Blood Type Antibody Screen 08/03/20 08/03/20 06:17 10:44 WBC RBC Hgb Hct MCV MCH MCHC RDW Plt Count Seg Neutrophils % Carbonic Acid HCO3/H2CO3 Ratio ABG pH ABG pCO2 ABG pO2 ABG HCO3 ABG O2 Saturation ABG Base Excess FiO2 Sodium 137.2 Potassium 4.5 D Chloride 103 Carbon Dioxide 26 Anion Gap 8 BUN 102 H Creatinine 2.46 H Est GFR ( Amer) 25 L Glucose 151 H Lactic Acid Calcium 8.2 L Phosphorus 5.6 H Magnesium 3.0 H Total Bilirubin AST Alkaline Phosphatase Total Protein Albumin Urine Color Urine Appearance Urine pH Ur Specific [place] Urine Protein Urine Glucose (UA) Urine Ketones Urine Blood Urine Nitrite Ur Leukocyte Esterase Urine WBC (Auto) Urine RBC (Auto) Blood Type Antibody Screen 08/02/20 08/02/20 08/03/20 17:14 22:52 10:44 Troponin I 0.046 1.870 9.440 Impressions: Chest X-Ray 08/02/20 17:30 IMPRESSION: Borderline heart size without sumeet pulmonary edema. GI Bleed Scan Nuclear Medicine 08/03/20 00:00 IMPRESSION: NORMAL RADIONUCLIDE GASTROINTESTINAL BLEEDING STUDY. Assessment and Plan - Diagnosis (1) Acute on chronic anemia Is this a current diagnosis for this admission?: Yes Plan: Severe drop in hemoglobin as compared to 2 weeks ago. Give an additional 1 unit of blood this morning given that his hemoglobin was still 6.7 after receiving 2 units. Patient had EGD and colonoscopy 1 month ago which showed mild gastritis but no evidence of bleeding as well as no evidence of GI bleed source in her colon. I consulted GI who currently recommends no indication for repeat endoscopy and recommended tagged red blood cell scan which is negative for active bleeding. Patient's did note some dark stools for the past 3 days. She is also on iron supplements. She denies any notable bleed. Xarelto has been discontinued Monitor H&H closely LDH is very much elevated, haptoglobin is pending, Indirect bili is normal. Iron studies last month did not show iron deficiency, consistent with chronic disease. B12 and folic acid were also normal and reticulocyte count was jaylin vated as expected. Etiology of the anemia is unclear as it still could be potentially have been from GI bleed beyond the site of evaluation with endoscopy. I will also get hematology involved tomorrow morning. (2) NSTEMI (non-ST elevated myocardial infarction) Is this a current diagnosis for this admission?: Yes Plan: Hemoglobin is trended up to 9. This was likely provoked by her profound anemia combined with underlying CAD. I have consulted Dr. Solis and after discussion about the patient's situation, recommends echocardiogram and medical management. Unfortunately we cannot give patient therapeutic Lovenox due to patient's significant GI bleed and aspirin has to be on hold. [facility] unfortunately may also put her on dialysis given her stage IV CKD. Continue to trend troponins. EKG showing evidence of STEMI but does show ST depressions and T wave inversions some of which are old (3) Acute on chronic systolic (congestive) heart failure Is this a current diagnosis for this admission?: Yes Plan: Has crackles in lung joseph today. Probably from the transfusions. Give her a dose of IV Bumex. Not requiring oxygen. We will continue her p.o. Bumex as scheduled. Continue Entresto. (4) Acute kidney injury superimposed on chronic kidney disease Is this a current diagnosis for this admission?: Yes Plan: Baseline CKD stage IV. Creatinine improving following transfusions. (5) Nausea and vomiting Qualifiers: Vomiting type: unspecified Vomiting Intractability: non-intractable Qualified Code(s): R11.2 - Nausea with vomiting, unspecified Is this a current diagnosis for this admission?: Yes (6) COPD (chronic obstructive pulmonary disease) Qualifiers: COPD type: unspecified COPD Qualified Code(s): J44.9 - Chronic obstructive pulmonary disease, unspecified Is this a current diagnosis for this admission?: Yes (7) S/P CABG x 3 Is this a current diagnosis for this admission?: Yes - Time Time Spent with patient: 15-24 minutes Anticipated Discharge Disposition: Home, Self Care Anticipated Discharge Timeframe: within 48 hours
[2020-08-03] MEDS: CALCITRIOL 0.25 MCG CAPSULE PO SCH (17:28)
[2020-08-03] MEDS: BUMETANIDE 1 MG TABLET PO SCH (17:28)
[2020-08-03] MEDS: BUSPIRONE HCL 10 MG TABLET PO SCH (17:28)
--- NOTE | 2020-08-03 18:18 | XCELERA REPORT ---
[address] [address] Transthoracic Echocardiogram Report Name: HELDER SERNA Age: 49 yrs Gender: Female : 1970 Patient Status: Inpatient Patient Location: [address] [place] [address] Study Date: 08/03/2020 03:40 PM Weight: 175 lb Procedure: A complete two-dimensional transthoracic echocardiogram was performed (2D, M-mode, spectral and color flow Doppler). The study was technically difficult with many images being suboptimal in quality. Reason For Study: Acute CA. Ordering Physician: EVA LEAL Performed By: Soniya Baires Interpretation Summary Interpretation Summary TRANS THORACIC ECHOCARDIOGRAM FINDINGS: LEFT VENTRICLE: LV Systolic function: LVEF is felt to be mildly depressed with best estimate being approximately 40 to 45%. Inferior wall hypokinesia noted. LV Diastolic Function: Grade III diastolic dysfunction noted. Wall motion : Cannot be accurately commented upon. Mild diffuse hypokinesia with inferior wall akinesia noted. Left ventricular chamber size : is within normal limit. Left ventricular wall thickness : is increased indicative of Mild LVH. INTERVENTRICULAR SEPTUM: no evidence of VSD noted. No asymmetric hypertrophy noted. RIGHT VENTRICLE: RV systolic function : is felt to be within normal limit. Right Ventricle Size : borderline dilated. LEFT ATRIUM size : Moderately dilated. RIGHT ATRIUM size : is within normal limit. INTER ATRIAL SEPTUM : No definite atrial septal defect noted however a small PFO could be missed. AORTIC ROOT : seems to be within normal limits. Ascending aorta is not well visualized. INFERIOR VENA CAVA: was not well visualized. VALVES: MITRAL VALVE : Leaflets are mildly thickened. Mobility seems to be within normal limits. Mitral Regurgitation : Trace mitral regurgitation is noted. Mitral Stenosis: No mitral stenosis noted. Mitral valve prolapse : none noted. AORTIC VALVE: seems to be trileaflet with thickening but well-preserved excursion. Aortic stenosis : No aortic stenosis noted. Aortic regurgitation : No aortic incompetence noted. TRICUSPID VALVE : mobility and structures within normal limit. Tricuspid stenosis : no tricuspid stenosis noted. Tricuspid regurgitation : Trace tricuspid regurgitation noted. Estimated RVSP : tricuspid jet envelope not well defined to measure RV systolic pressure accurately. PULMONARY VALVE : was not well visualized but no significant abnormalities suspected. Pulmonary stenosis : no significant pulmonary stenosis noted. Pulmonary regurgitation : no significant pulmonary regurgitation noted. MASSES AND THROMBUS : No definite intracardiac thrombus or masses are noted. PERICARDIUM: No pericardial effusion was noted. IMPRESSION : 1. Mildly depressed LVEF. 2. Mild LVH noted. 3. Grade III Diastolic Dysfunction noted. 4. No significant valvular stenosis or regurgitation noted. 5. Interatrial septum shifted to the right suggestive of elevated left atrial pressure and LVEDP. MMode/2D Measurements & Calculations RVDd: 2.2 cm LVIDd: 5.3 cm FS: 17.3 % Ao root diam: 2.3 cm IVSd: 0.99 cm LVIDs: 4.4 cm EDV(Teich): 133.6 ml Ao root area: 4.2 cm2 LVPWd: 0.98 cm ESV(Teich): 85.8 ml EF(Teich): 35.8 % Doppler Measurements & Calculations MV E max juan: MV dec slope: Ao V2 max: LV V1 max P.0 cm/sec 171.0 cm/sec 2.4 mmHg MV A max juan: 803.7 cm/sec2 Ao max PG: LV V1 max: 54.2 cm/sec MV dec time: 0.16 sec 11.7 mmHg 76.8 cm/sec MV E/A: 2.4 PI end-d juan: TR max juan: 130.8 cm/sec 234.2 cm/sec TR max P.0 mmHg : EVA LEAL Shyamal
[2020-08-03 19:00] LABS: ABSOLUTE LYMPHOCYTES (AUTO) 1.1 10^3/uL (0.5-4.7); ABSOLUTE MONOCYTES (AUTO) 0.4 10^3/uL (0.1-1.4); ABSOLUTE NEUT (AUTO) 9.6 10^3/uL (1.7-8.2); BASOPHILS % (AUTO) 0.4 % (0-2); EOSINOPHILS % (AUTO) 0.3 % (0-6); HEMATOCRIT 22.5 % (36.0-47.0); LYMPHOCYTES % (AUTO) 10.2 % (13-45); MEAN CORPUSCULAR HEMOGLOBIN 29.3 pg (27.0-33.4); MEAN CORPUSCULAR HGB CONC 33.3 g/dL (32.0-36.0); MEAN CORPUSCULAR VOLUME 88 fl (80-97); PLATELET COUNT 193 10^3/uL (150-450); RED BLOOD COUNT 2.56 10^6/uL (3.72-5.28); RED CELL DISTRIBUTION WIDTH 17.3 % (11.5-14.0); SEGMENTED NEUTROPHILS % (AUTO) 85.1 % (42-78); TOTAL CELLS COUNTED % (AUTO) 100 %; WHITE BLOOD COUNT 11.2 10^3/uL (4.0-10.5)
--- NOTE | 2020-08-03 19:01 | PDOC CONSULTATION ---
Consultation Consult Date: 08/03/20 Attending physician:: EVA LEAL Provider Consulted: BETZAIDA TREVIZO Consult reason:: Positive troponin I and dyspnea History of Present Illness Admission Date/PCP: 08/02/20 22:43 SALOMON RODRIGUEZ Patient complains of: Shortness of breath. History of Present Illness: HELDER SERNA is a 49 year old female With history of coronary artery disease, CHF, hypertension, diabetes, peripheral vascular disease who was admitted with progressive dyspnea. Patient was noted to be severely anemic. Patient had cardiac enzymes performed which showed positive troponin I. Most recent troponin I is significantly elevated at 9.0 range. I was asked to evaluate this patient. Patient twelve-lead EKG does show some ST segment depressions. Patient currently on repeated questioning denying any chest pain. She has so far been infused with 3 units of packed red blood cells. Currently feeling somewhat better. Past Medical History Cardiac Medical History: Reports: Atrial Fibrillation, Congestive Heart Failure, Coronary Artery Disease, DVT, Myocardial Infarction, Hyperlipidema, Hypertension, Peripheral Vascular Disease Pulmonary Medical History: Reports: Bronchitis, Chronic Obstructive Pulmonary Disease (COPD), Pneumonia Neurological Medical History: Denies: Migraine, Seizures Endocrine Medical History: Reports: Diabetes Mellitus Type 2 Denies: Diabetes Mellitus Type 1, Hyperthyroidism, Hypothyroidism GI Medical History: Reports: Gastroesophageal Reflux Disease, Hiatal Hernia Denies: Cirrhosis, Crohn's Disease, Hepatitis, Ulcerative Colitis Musculoskeltal Medical History: Reports: Arthritis Denies: Fibromyalgia, Gout Skin Medical History: Denies: Eczema, Psoriasis Psychiatric Medical History: Reports: Depression Hematology: Reports: Anemia Denies: Bleeding Tendencies Past Surgical History Past Surgical History: Reports: Amputation - Right BKA, Left AKA, Cardiac Catheterization, Section - x2, Cholecystectomy, Coronary Artery Bypass Graft - x3, Herniorrhaphy - Ventral hernia, Orthopedic Surgery - R BKA,L AKA, Tubal Ligation, Vascular Surgery - Left iliofemoral bypass, Other - Peripheral nerve stimulator implantation Social History Information Source: Patient Smoking Status: Former Smoker Electronic Cigarette use?: No Frequency of Alcohol Use: None Hx Recreational Drug Use: No Drugs: None Hx Prescription Drug Abuse: No - Advance Directive Resuscitation Status: Full Code Family History Family History: None, Reviewed & Not Pertinent, CAD, CVA, DM, Hypertension, Malignancy, Other - Kidney disease Parental Family History Reviewed: Yes Children Family History Reviewed: Yes Sibling(s) Family History Reviewed.: Yes Medication/Allergy Home Medications: Ascorbic Acid [Vitamin C] 500 mg PO DAILY 06/27/20 Aspirin [Lo-Dose Aspirin EC] 81 mg PO DAILY 06/27/20 Baclofen [Baclofen 10 mg Tablet] 10 mg PO QIDP PRN 06/27/20 Buspirone HCl 7.5 mg PO BID 06/27/20 Carvedilol [Coreg 3.125 mg Tablet] 3.125 mg PO Q12 06/27/20 Citalopram Hydrobromide [Citalopram HBr] 40 mg PO DAILY 06/27/20 Ergocalciferol (Vitamin D2) [Drisdol 50,000 unit (1.25MG) Capsule] 1 cap PO MO@1000 06/27/20 Fenofibrate Nanocrystallized [Tricor 145 mg Tablet] 145 mg PO DAILY 06/27/20 Gabapentin [Neurontin 300 mg Capsule] 600 mg PO Q6 06/27/20 Insulin Glargine,Hum.rec.anlog [Lantus Insulin 100 Unit/1 ml 10 ml] 20 unit SUBC UT QHS 06/27/20 Insulin Regular, Human [Humulin R (Reg) Insulin 100 unit/mL] 8 unit SUBCUT AC 06/27/20 Metoclopramide HCl [Reglan 10 mg Tablet] 10 mg PO ACHS 06/27/20 Multivitamin [Tab-A-Mariela (Multiple Vitamin) Tablet] 1 tab PO DAILY 06/27/20 Nitroglycerin [Nitrostat 0.4 mg (1/150 Gr) Tabs 25/Bottle] 1 tab SL Q5MP PRN 06/27/20 Boulevard-3 Acid Ethyl Esters [Lovaza 1 gm Capsule] 4 gm PO DAILY 06/27/20 Ondansetron [Zofran Odt 4 mg Tablet] 8 mg PO Q6HP PRN 06/27/20 Oxycodone HCl [Oxy-Ir 5 mg Tablet] 10 mg PO TIDP PRN 06/27/20 Rivaroxaban [Xarelto] 20 mg PO QPM 06/27/20 Silver Sulfadiazine [Silvadene 1% Cream 25 gm] 1 applic TOP DAILY 06/27/20 Trazodone HCl [Desyrel 50 mg Tablet] 50 mg PO QHS 06/27/20 Atorvastatin Calcium [Lipitor 80 mg Tablet] 80 mg PO QHS tablet 06/30/20 Bumetanide 3 mg PO BID 08/03/20 Calcitriol [Rocaltrol] 0.25 mcg PO TUTHSA 08/03/20 Ferrous Sulfate [Feosol 325 mg Tablet] 650 mg PO Q2D 08/03/20 Pantoprazole Sodium 40 mg PO DAILY 08/03/20 Potassium Chloride 20 meq PO BID 08/03/20 Sacubitril/Valsartan [Entresto 24 mg/26 mg Tablet] 1 tab PO Q12 08/03/20 Allergies/Adverse Reactions: amlodipine Allergy (Severe, Verified 08/02/20 16:44) Hallucinations isosorbide [From Imdur] Allergy (Intermediate, Verified 08/02/20 16:44) RASH zolpidem [From Ambien] Adverse Reaction (Severe, Verified 08/02/20 16:44) Hallucinations Review of Systems Cardiovascular: PRESENT: dyspnea on exertion, edema, orthropnea Musculoskeletal: PRESENT: as per HPI, other - Status post above-knee amputation on the left side and below knee on the right side. Physical Exam Vital Signs: Temp Pulse Resp BP Pulse Ox 98.2 F 69 18 97/57 L 97 08/03/20 16:09 08/03/20 16:09 08/03/20 16:09 08/03/20 16:09 08/03/20 16:09 Intake & Output 08/02/20 08/03/20 08/04/20 06:59 06:59 06:59 Intake Total 2343 950 Output Total 1400 1000 Balance 943 -50 Weight 79.5 kg Exam: GENERAL: well-nourished and in no acute distress. Alert and oriented x3 HEAD: Atraumatic, normocephalic. EYES: ZACARIAS, sclera anicteric, conjunctiva are normal. ENT: Moist mucous membranes. No oral ulcerations or bleeding gums noted. No obvious ear, nose or throat abnormalities noted. NECK: supple without lymphadenopathy. Trachea is central. No cervical or axillary lymphadenopathy noted. Carotids are 2+, JVD WNL LUNGS: Bibasilar fine crackles noted. No wheezes rales or rhonchi noted. No significant dullness noted on percussion. CHEST: Palpation of the chest wall shows no significant chest wall tenderness. HEART: [place] [employer], No PSH, 1/6 MARIMAR aortic area, 1/6 byrd systolic murmur mitral area, no rubs, no gallops. ABDOMEN: Soft, no significant tenderness appreciated, normoactive bowel sounds. No guarding, no rebound. No rigidity noted . No masses appreciated. EXTREMITIES: Pedal pulses are 1-2+, no calf tenderness noted. No clubbing or cyanosis. Below-knee amputation right side and above-knee amputation left side. NEUROLOGICAL: Focused neurological exam showed no significant neurologic deficit. Normal speech, no focal weakness appreciated. PSYCH: Normal mood, normal affect. Judgment and insight within normal limits. SKIN: No significant ecchymosis, skin is noted to be warm. MUSCULOSKELETAL EXAM: No significant acute joint swelling noted. Results Laboratory Results: 08/03/20 06:17 08/03/20 10:44 08/02/20 08/02/20 08/02/20 19:01 19:05 19:05 WBC 9.2 RBC 1.61 L Hgb 4.7 L* Hct 14.3 L* MCV 89 D MCH 29.0 MCHC 32.7 RDW 19.3 H Plt Count 175 Seg Neutrophils % Not Reportable Carbonic Acid 1.12 HCO3/H2CO3 Ratio 18:1 ABG pH 7.35 ABG pCO2 37.2 ABG pO2 158.6 H ABG HCO3 20.2 ABG O2 Saturation 99.0 H ABG Base Excess -4.9 FiO2 4L Sodium Potassium Chloride Carbon Dioxide Anion Gap BUN Creatinine Est GFR ( Amer) Glucose Lactic Acid Calcium Phosphorus Magnesium Urine Color Urine Appearance Urine pH Ur Specific [place] Urine Protein Urine Glucose (UA) Urine Ketones Urine Blood Urine Nitrite Ur Leukocyte Esterase Urine WBC (Auto) Urine RBC (Auto) Blood Type O POSITIVE Antibody Screen NEGATIVE 08/02/20 08/02/20 08/03/20 20:52 22:52 06:17 WBC 11.1 H RBC 2.30 L Hgb 6.7 L Hct 20.5 L MCV 89 MCH 29.1 MCHC 32.7 RDW 17.4 H Plt Count 187 Seg Neutrophils % 89.1 H Carbonic Acid HCO3/H2CO3 Ratio ABG pH ABG pCO2 ABG pO2 ABG HCO3 ABG O2 Saturation ABG Base Excess FiO2 Sodium Potassium Chloride Carbon Dioxide Anion Gap BUN Creatinine Est GFR ( Amer) Glucose Lactic Acid 1.8 Calcium Phosphorus Magnesium Urine Color YELLOW Urine Appearance CLEAR Urine pH 5.0 Ur Specific [place] 1.017 Urine Protein 100 H Urine Glucose (UA) NEGATIVE Urine Ketones NEGATIVE Urine Blood NEGATIVE Urine Nitrite NEGATIVE Ur Leukocyte Esterase NEGATIVE Urine WBC (Auto) 0 Urine RBC (Auto) 1 Blood Type Antibody Screen 08/03/20 08/03/20 06:17 10:44 WBC RBC Hgb Hct MCV MCH MCHC RDW Plt Count Seg Neutrophils % Carbonic Acid HCO3/H2CO3 Ratio ABG pH ABG pCO2 ABG pO2 ABG HCO3 ABG O2 Saturation ABG Base Excess FiO2 Sodium 137.2 Potassium 4.5 D Chloride 103 Carbon Dioxide 26 Anion Gap 8 BUN 102 H Creatinine 2.46 H Est GFR ( Amer) 25 L Glucose 151 H Lactic Acid Calcium 8.2 L Phosphorus 5.6 H Magnesium 3.0 H Urine Color Urine Appearance Urine pH Ur Specific [place] Urine Protein Urine Glucose (UA) Urine Ketones Urine Blood Urine Nitrite Ur Leukocyte Esterase Urine WBC (Auto) Urine RBC (Auto) Blood Type Antibody Screen 08/02/20 08/02/20 08/03/20 17:14 22:52 10:44 Troponin I 0.046 1.870 9.440 EKG Comments: Diffuse mild but nonspecific ST segment changes noted. These are however consistent with non-STEMI. Patient in sinus rhythm. Impressions: Chest X-Ray 08/02/20 17:30 IMPRESSION: Borderline heart size without sumeet pulmonary edema. GI Bleed Scan Nuclear Medicine 08/03/20 00:00 IMPRESSION: NORMAL RADIONUCLIDE GASTROINTESTINAL BLEEDING STUDY. Assessment & Plan - Diagnosis (1) Acute GI bleeding Is this a current diagnosis for this admission?: Yes (2) Acute blood loss anemia Is this a current diagnosis for this admission?: Yes (3) Acute kidney injury superimposed on CKD Is this a current diagnosis for this admission?: Yes (4) Acute on chronic systolic (congestive) heart failure Is this a current diagnosis for this admission?: Yes (5) NSTEMI (non-ST elevated myocardial infarction) Is this a current diagnosis for this admission?: Yes (6) CAD (coronary artery disease) of bypass graft Qualifiers: [place] vs. transplanted heart: [place] heart Is this a current diagnosis for this admission?: Yes - Notes Notes: Patient has positive troponin I. She does have some ST segment changes, therefore by definition does meet criteria for non-STEMI. This could be pr ecipitated with severe anemia causing supply demand mismatch. Possibility of plaque rupture causing NE or type I NE possible but felt unlikely. At this point recommend maximizing medical therapy. Patient has multiple comorbid diagnoses including advanced chronic kidney disease. Patient also has severe anemia. Should patient decompensate, develop significant cardiac dysrhythmia, worsening CHF then would recommend tertiary care transfer. Patient would benefit from a expedited referral to see her primary marine farmer as an outpatient very soon after discharge preferably within a week. 2D echo reviewed. EF relatively unchanged. Patient does have significant diastolic dysfunction. It is best to keep patient on somewhat on the dehydrated side. We will continue to follow patient through the hospitalization. - Time Time Spent: 30 to 50 Minutes Medications reviewed and adjusted accordingly: Yes
[2020-08-03 19:03] LABS: HEMOGLOBIN 7.5 g/dL (12.0-15.5)
--- NOTE | 2020-08-03 19:15 | EKG REPORT ---
SEVERITY:- ABNORMAL ECG - SINUS RHYTHM PROBABLE LEFT ATRIAL ABNORMALITY NONSPECIFIC INTRAVENTRICULAR CONDUCTION DELAY BORDERLINE ST DEPRESSION, LATERAL LEADS : Confirmed by: Latha Thakkar MD 03-Aug-2020 19:15:18
[2020-08-03] MEDS: ATORVASTATIN CALCIUM 80 MG TABLET PO SCH (21:27)
[2020-08-03] MEDS: INSULIN GLARGINE,HUM.REC.ANLOG 1,000 UNIT/10 ML VIAL SUBCUT SCH ×2 (21:28→21:35)
[2020-08-04] MEDS: OXYCODONE HCL IR 5 MG TABLET PO PRN ×2 (04:38→21:23)
[2020-08-04] MEDS: BACLOFEN 10 MG TABLET PO PRN ×2 (04:38→21:24)
[2020-08-04] MEDS: GABAPENTIN 300 MG CAPSULE PO SCH ×4 (05:03→23:30)
[2020-08-04 06:33] LABS: ABSOLUTE EOSINOPHILS # (AUTO) 0.2 10^3/uL (0.0-0.6); ABSOLUTE LYMPHOCYTES (AUTO) 1.2 10^3/uL (0.5-4.7); ABSOLUTE MONOCYTES (AUTO) 0.5 10^3/uL (0.1-1.4); ABSOLUTE NEUT (AUTO) 6.6 10^3/uL (1.7-8.2); BASOPHILS % (AUTO) 0.5 % (0-2); EOSINOPHILS % (AUTO) 1.9 % (0-6); HEMATOCRIT 20.9 % (36.0-47.0); LYMPHOCYTES % (AUTO) 14.5 % (13-45); MEAN CORPUSCULAR HEMOGLOBIN 29.6 pg (27.0-33.4); MEAN CORPUSCULAR HGB CONC 33.8 g/dL (32.0-36.0); MEAN CORPUSCULAR VOLUME 88 fl (80-97); MONOCYTES % (AUTO) 5.9 % (3-13); PLATELET COUNT 158 10^3/uL (150-450); RED BLOOD COUNT 2.38 10^6/uL (3.72-5.28); RED CELL DISTRIBUTION WIDTH 17.7 % (11.5-14.0); SEGMENTED NEUTROPHILS % (AUTO) 77.2 % (42-78); TOTAL CELLS COUNTED % (AUTO) 100 %; WHITE BLOOD COUNT 8.5 10^3/uL (4.0-10.5)
[2020-08-04 06:35] LABS: HEMOGLOBIN 7.1 g/dL (12.0-15.5)
[2020-08-04 06:56] LABS: ANION GAP 10 (5-19); BLOOD UREA NITROGEN 116 mg/dL (7-20); CALCIUM 7.6 mg/dL (8.4-10.2); CARBON DIOXIDE 22 mmol/L (22-30); CHLORIDE 99 mmol/L (98-107); GLUCOSE 84 mg/dL (75-110); POTASSIUM 4.4 mmol/L (3.6-5.0)
[2020-08-04] MEDS: INSULIN LISPRO 100 UNIT/ML 3 ML VIAL SUBCUT SCH ×4 (08:27→21:24)
[2020-08-04] MEDS ORDERED: NORMAL SALINE 250 ML IV PRN ×2 (08:45)
[2020-08-04] MEDS: BUMETANIDE 1 MG TABLET PO SCH ×2 (09:15→17:27)
[2020-08-04] MEDS: BUSPIRONE HCL 10 MG TABLET PO SCH ×2 (09:29→17:36)
[2020-08-04] MEDS: CITALOPRAM HYDROBROMIDE 20 MG TABLET PO SCH (09:29)
[2020-08-04] MEDS: DOCUSATE SODIUM 100 MG CAPSULE PO SCH (09:30)
[2020-08-04] MEDS: METOCLOPRAMIDE HCL 10 MG TABLET PO SCH ×4 (09:30→21:24)
[2020-08-04] MEDS: FERROUS SULFATE 325 MG TABLET PO SCH (09:30)
[2020-08-04] MEDS: OMEGA-3 ACID ETHYL ESTERS 1 GM CAPSULE PO SCH (09:30)
[2020-08-04] MEDS: PANTOPRAZOLE SODIUM 40 MG VIAL IV SCH ×2 (09:30→21:23)
[2020-08-04] MEDS: FENOFIBRATE NANOCRYSTALLIZED 145 MG TABLET PO SCH (09:30)
[2020-08-04] MEDS: MULTIVITAMIN TABLET PO SCH (09:30)
[2020-08-04] MEDS: PREDNISONE 20 MG TABLET PO SCH ×2 (09:32→16:18)
[2020-08-04] MEDS: SILVER SULFADIAZINE 1% CREAM 25 GM TOP SCH (09:33)
--- NOTE | 2020-08-04 12:32 | PDOC PROGRESS REPORT ---
Subjective Date:: 08/04/20 Subjective:: Patient seems to be doing better with gradual improvement. Pt is denying any ch est arm or neck discomfort. Patient denying any PND, orthopnea. Patient denied any sustained palpitations, dizziness, syncope, near syncope. Patient denying any fever chills. Patient denying any other significant discomfort. Patient claims shortness of breath has improved significantly. Patient is maintaining sinus rhythm. Review of systems: Rest review of systems negative. Medications: Medications have been reviewed. Reason For Visit: ACUTE LOWER GI BLEED, ACUTE BLOOD LOSS ANEMIA, Physical Exam Vital Signs: Temp Pulse Resp BP Pulse Ox 98.9 F 62 18 82/55 L 98 08/04/20 11:49 08/04/20 11:49 08/04/20 11:49 08/04/20 11:49 08/04/20 11:49 Intake & Output 08/03/20 08/04/20 08/05/20 06:59 06:59 06:59 Intake Total 2343 1430 0 Output Total 1400 1500 Balance 943 -70 0 Weight 79.5 kg 79.8 kg Exam: GENERAL: well-nourished and in no acute distress. Alert and oriented x3 HEAD: Atraumatic, normocephalic. EYES: ZACARIAS, sclera anicteric, conjunctiva are normal. ENT: Moist mucous membranes. No oral ulcerations or bleeding gums noted. No obvious ear, nose or throat abnormalities noted. NECK: supple without lymphadenopathy. Trachea is central. No cervical or axillary lymphadenopathy noted. Carotids are 2+, JVD WNL LUNGS: Bibasilar fine crackles noted. No wheezes rales or rhonchi noted. No significant dullness noted on percussion. CHEST: Palpation of the chest wall shows no significant chest wall tenderness. 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 ABDOMEN: Soft, no significant tenderness appreciated, normoactive bowel sounds. No guarding, no rebound. No rigidity noted . No masses appreciated. EXTREMITIES: Pedal pulses are 1-2+, no calf tenderness noted. No clubbing or cyanosis. Below-knee amputation right side and above-knee amputation left side. NEUROLOGICAL: Focused neurological exam showed no significant neurologic deficit. Normal speech, no focal weakness appreciated. PSYCH: Normal mood, normal affect. Judgment and insight within normal limits. SKIN: No significant ecchymosis, skin is noted to be warm. MUSCULOSKELETAL EXAM: No significant acute joint swelling noted. Results Laboratory Results: 08/04/20 06:08 08/04/20 06:08 08/02/20 08/02/20 08/03/20 19:05 19:05 10:44 WBC RBC Hgb 4.7 L* Hct 14.3 L* MCV MCH MCHC RDW Plt Count Seg Neutrophils % Sodium 137.2 Potassium 4.5 D Chloride 103 Carbon Dioxide 26 Anion Gap 8 BUN 102 H Creatinine 2.46 H Est GFR ( Amer) 25 L Glucose 151 H Calcium 8.2 L Blood Type O POSITIVE Antibody Screen NEGATIVE 08/03/20 08/04/20 08/04/20 18:13 06:08 06:08 WBC 11.2 H 8.5 RBC 2.56 L 2.38 L Hgb 7.5 L 7.1 L Hct 22.5 L 20.9 L MCV 88 88 MCH 29.3 29.6 MCHC 33.3 33.8 RDW 17.3 H 17.7 H Plt Count 193 158 Seg Neutrophils % 85.1 H 77.2 Sodium 130.9 L Potassium 4.4 Chloride 99 Carbon Dioxide 22 Anion Gap 10 BUN 116 H Creatinine 2.56 H Est GFR ( Amer) 24 L Glucose 84 Calcium 7.6 L Blood Type Antibody Screen 08/02/20 20:52 Catheterized Urine Urine Culture - Final NO GROWTH 2 DAYS 08/02/20 08/02/20 08/03/20 17:14 22:52 10:44 Troponin I 0.046 1.870 9.440 08/03/20 08/04/20 18:13 06:08 Troponin I 5.660 3.100 Impressions: Chest X-Ray 08/02/20 17:30 IMPRESSION: Borderline heart size without sumeet pulmonary edema. GI Bleed Scan Nuclear Medicine 08/03/20 00:00 IMPRESSION: NORMAL RADIONUCLIDE GASTROINTESTINAL BLEEDING STUDY. Assessment & Plan - Diagnosis (1) Acute GI bleeding Is this a current diagnosis for this admission?: Yes (2) Acute blood loss anemia Is this a current diagnosis for this admission?: Yes (3) Acute kidney injury superimposed on CKD Is this a current diagnosis for this admission?: Yes (4) Acute on chronic systolic (congestive) heart failure Is this a current diagnosis for this admission?: Yes (5) NSTEMI (non-ST elevated myocardial infarction) Is this a current diagnosis for this admission?: Yes (6) CAD (coronary artery disease) of bypass graft Qualifiers: [place] vs. transplanted heart: [place] heart Is this a current diagnosis for this admission?: Yes - Notes Notes: NON-STEMI: [place] to be type II [place] precipitated by severe anemia and hypotension on presentation. Patient currently without any symptoms indicative of ongoing ischemia. Recommend continue with beta-julius therapy, SNRI therapy, at this point there is contraindication to antiplatelet therapy. Optimize anti-ischemic therapy. Recommend maintaining hemoglobin above 8 g%. May consider blood transfusion. CONGESTIVE HEART FAILURE: Chronic diastolic/systolic CHF. No significant valve disease noted on echocardiogram. Recommend fluid balance, restrict salt, continue current regimen. Recommend maintaining hemoglobin above 8 g%. Have ordered bilevel therapy. ACUTE ON CHRONIC KIDNEY DISEASE: Continue to monitor renal functions. Avoid nephrotoxic medications. At this point recommend maximizing medical therapy. Patient has multiple comorbid diagnoses including advanced chronic kidney disease. Patient also has severe anemia. Should patient decompensate, develop significant cardiac dysrhythmia, worsening CHF then would recommend tertiary care transfer. 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 2D echo reviewed. EF relatively unchanged. Patient does have significant diastolic dysfunction. It is best to keep patient on somewhat on the dehydrated side. We will continue to follow patient through the hospitalization. - Time Time with patient: Greater than 35 minutes Medications reviewed and adjusted accordingly: Yes
[2020-08-04] MEDS: ACETAMINOPHEN 325 MG TABLET PO PRN (16:19)
[2020-08-04] MEDS ORDERED: NORMAL SALINE 500 ML IV ONE (16:30)
--- NOTE | 2020-08-04 17:45 | PDOC PROGRESS REPORT ---
Subjective Date:: 08/04/20 Subjective:: Patient felt a little tired this morning. She continues to not have any evidence of GI bleed. She was noted to be hypotensive. However not in any distress. Troponins have peaked and trended downwards. Reason For Visit: ACUTE LOWER GI BLEED, ACUTE BLOOD LOSS ANEMIA, Physical Exam Vital Signs: Temp Pulse Resp BP Pulse Ox 98.5 F 67 19 92/58 L 96 08/04/20 16:04 08/04/20 16:04 08/04/20 16:04 08/04/20 16:04 08/04/20 16:04 Intake & Output 08/03/20 08/04/20 08/05/20 06:59 06:59 06:59 Intake Total 2343 1430 960 Output Total 1400 1500 450 Balance 943 -70 510 Weight 79.5 kg 79.8 kg General appearance: PRESENT: no acute distress, cooperative Neck exam: ABSENT: JVD Respiratory exam: PRESENT: crackles - Mild at lung bases, unlabored. ABSENT: tachypnea, wheezes Cardiovascular exam: PRESENT: RRR, +S1, +S2. ABSENT: tachycardia GI/Abdominal exam: PRESENT: soft. ABSENT: rebound, rigid, tenderness Extremities exam: PRESENT: other - Bilateral amputee Neurological exam: PRESENT: alert, awake, oriented to person, oriented to place, oriented to time, oriented to situation Psychiatric exam: ABSENT: agitated, anxious Results Laboratory Results: 08/04/20 06:08 08/04/20 06:08 08/02/20 08/03/20 08/04/20 19:05 18:13 06:08 WBC 11.2 H 8.5 RBC 2.56 L 2.38 L Hgb 7.5 L 7.1 L Hct 22.5 L 20.9 L MCV 88 88 MCH 29.3 29.6 MCHC 33.3 33.8 RDW 17.3 H 17.7 H Plt Count 193 158 Seg Neutrophils % 85.1 H 77.2 Sodium Potassium Chloride Carbon Dioxide Anion Gap BUN Creatinine Est GFR ( Amer) Glucose Calcium Blood Type O POSITIVE Antibody Screen NEGATIVE 08/04/20 06:08 WBC RBC Hgb Hct MCV MCH MCHC RDW Plt Count Seg Neutrophils % Sodium 130.9 L Potassium 4.4 Chloride 99 Carbon Dioxide 22 Anion Gap 10 BUN 116 H Creatinine 2.56 H Est GFR ( Amer) 24 L Glucose 84 Calcium 7.6 L Blood Type Antibody Screen 08/02/20 20:52 Catheterized Urine Urine Culture - Final NO GROWTH 2 DAYS 08/02/20 08/02/20 08/03/20 17:14 22:52 10:44 Troponin I 0.046 1.870 9.440 08/03/20 08/04/20 18:13 06:08 Troponin I 5.660 3.100 Impressions: Chest X-Ray 08/02/20 17:30 IMPRESSION: Borderline heart size without sumeet pulmonary edema. GI Bleed Scan Nuclear Medicine 08/03/20 00:00 IMPRESSION: NORMAL RADIONUCLIDE GASTROINTESTINAL BLEEDING STUDY. Assessment and Plan - Diagnosis (1) Acute on chronic anemia Is this a current diagnosis for this admission?: Yes Plan: Patient had EGD and colonoscopy 1 month ago which showed mild gastritis but no evidence of bleeding as well as no evidence of GI bleed source in her colon. GI recommended no indication for repeat endoscopy and recommended tagged red blood cell scan which is negative for active bleeding. Patient's did note some dark stools for the past 3 days but this is likely from iron supplements. Xarelto is currently on hold Cardiology recommends keeping H&H above 8 so she received another unit of blood today [4units so far] Iron studies last month did not show iron deficiency, consistent with chronic disease. B12 and folic acid were also normal and reticulocyte count was elevated as expected. LDH, initial potassium and phosphate elevated. I have consulted Dr. Tilley and she suspects hemolytic process and recommends starting patient on prednisone 40 mg twice daily which has been initiated. Also recommends direct Nicol test which is negative and flow cytometry for [facility]. We will monitor CBC closely. (2) NSTEMI (non-ST elevated myocardial infarction) Is this a current diagnosis for this admission?: Yes Plan: Suspected to be type II [place] precipitated by severe anemia. Cardiology following. EF unchanged on echo 40 to 45% with inferior wall hypokinesia and grade 3 diastolic dysfunction. Troponin has peaked at 9 and declined Continue to trend troponins. EKG showed no evidence of STEMI but does show ST depressions and T wave inversio ns some of which are old (3) Acute on chronic systolic (congestive) heart failure Is this a current diagnosis for this admission?: Yes Plan: Combined systolic and diastolic heart failure. I did have to hold her antihypertensives and Bumex today due to hypotension. She received transfusion. If she starts to decompensate in terms of her heart failure will give her a dose of Bumex. (4) Acute kidney injury superimposed on chronic kidney disease Is this a current diagnosis for this admission?: Yes (5) Nausea and vomiting Qualifiers: Vomiting type: unspecified Vomiting Intractability: non-intractable Qualified Code(s): R11.2 - Nausea with vomiting, unspecified Is this a current diagnosis for this admission?: Yes (6) COPD (chronic obstructive pulmonary disease) Qualifiers: COPD type: unspecified COPD Qualified Code(s): J44.9 - Chronic obstructive pulmonary disease, unspecified Is this a current diagnosis for this admission?: Yes (7) S/P CABG x 3 Is this a current diagnosis for this admission?: Yes - Time Time Spent with patient: 15-24 minutes Anticipated Discharge Disposition: Home, Self Care Anticipated Discharge Timeframe: within 72 hours
[2020-08-04 19:05] LABS: HEMATOCRIT 27.1 % (36.0-47.0); MEAN CORPUSCULAR HEMOGLOBIN 30.2 pg (27.0-33.4); MEAN CORPUSCULAR HGB CONC 33.2 g/dL (32.0-36.0); MEAN CORPUSCULAR VOLUME 91 fl (80-97); PLATELET COUNT 169 10^3/uL (150-450); RED BLOOD COUNT 2.98 10^6/uL (3.72-5.28); RED CELL DISTRIBUTION WIDTH 17.8 % (11.5-14.0); WHITE BLOOD COUNT 8.2 10^3/uL (4.0-10.5)
--- NOTE | 2020-08-04 19:39 | PDOC CONSULTATION ---
Consultation Consult Date: 08/04/20 Provider Consulted: BEE CESPEDES Consult reason:: Hematology/Oncology consultation was requested for patient with severe acute anemia History of Present Illness Admission Date/PCP: 08/02/20 22:43 SALOMON RODRIGUEZ History of Present Illness: HELDER SERNA is a 49 year old female longstanding history of DM, CAD, CABG, Afib on Xarelto, gastric ulcers, bilateral leg amputations, etc. She was just discharged from this institution 07/20/2020 after nausea, vomiting, and anemia. She underwent GI evaluation and was started on oral iron therapy. However, over the past 2 weeks, she complained of further nausea, vomiting, and weakness. Her HHN noted increased pallor and she was brought back to the hospital. Her HGB was found to have dropped from 8.3 to 4.7. She was also found to have an LA due to the severe anemia. Cardiology now following. Although extensive work-up has been done to rule out GI bleeding, including colonoscopy, EGD, tagged RBC scan, there has been no evidence of bleeding. She just received another unit of blood. Cardiology has recommended that HGB be kept >8. Past Medical History Cardiac Medical History: Reports: Atrial Fibrillation, Congestive Heart Failure, Coronary Artery Disease, DVT, Myocardial Infarction, Hyperlipidema, Hypertension, Peripheral Vascular Disease Pulmonary Medical History: Reports: Bronchitis, Chronic Obstructive Pulmonary Disease (COPD), Pneumonia Neurological Medical History: Denies: Migraine, Seizures Endocrine Medical History: Reports: Diabetes Mellitus Type 2 Denies: Diabetes Mellitus Type 1, Hyperthyroidism, Hypothyroidism GI Medical History: Reports: Gastroesophageal Reflux Disease, Hiatal Hernia Denies: Cirrhosis, Crohn's Disease, Hepatitis, Ulcerative Colitis Musculoskeltal Medical History: Reports: Arthritis Denies: Fibromyalgia, Gout Skin Medical History: Denies: Eczema, Psoriasis Psychiatric Medical History: Reports: Depression Hematology: Reports: Anemia Denies: Bleeding Tendencies Past Surgical History Past Surgical History: Reports: Amputation - Right BKA, Left AKA, Cardiac Cathet erization, Section - x2, Cholecystectomy, Coronary Artery Bypass Graft - x3, Herniorrhaphy - Ventral hernia, Orthopedic Surgery - R BKA,L AKA, Tubal Ligation, Vascular Surgery - Left iliofemoral bypass, Other - Peripheral nerve stimulator implantation Social History Smoking Status: Never Smoker Electronic Cigarette use?: No Frequency of Alcohol Use: None Hx Recreational Drug Use: No Drugs: None Hx Prescription Drug Abuse: No - Advance Directive Resuscitation Status: Full Code Family History Family History: None, Reviewed & Not Pertinent, CAD, CVA, DM, Hypertension, Malignancy, Other - Kidney disease Parental Family History Reviewed: Yes Children Family History Reviewed: No Sibling(s) Family History Reviewed.: Yes Medication/Allergy Home Medications: Ascorbic Acid [Vitamin C] 500 mg PO DAILY 06/27/20 Aspirin [Lo-Dose Aspirin EC] 81 mg PO DAILY 06/27/20 Baclofen [Baclofen 10 mg Tablet] 10 mg PO QIDP PRN 06/27/20 Buspirone HCl 7.5 mg PO BID 06/27/20 Carvedilol [Coreg 3.125 mg Tablet] 3.125 mg PO Q12 06/27/20 Citalopram Hydrobromide [Citalopram HBr] 40 mg PO DAILY 06/27/20 Ergocalciferol (Vitamin D2) [Drisdol 50,000 unit (1.25MG) Capsule] 1 cap PO MO@1000 06/27/20 Fenofibrate Nanocrystallized [Tricor 145 mg Tablet] 145 mg PO DAILY 06/27/20 Gabapentin [Neurontin 300 mg Capsule] 600 mg PO Q6 06/27/20 Insulin Glargine,Hum.rec.anlog [Lantus Insulin 100 Unit/1 ml 10 ml] 20 unit SUBCUT QHS 06/27/20 Insulin Regular, Human [Humulin R (Reg) Insulin 100 unit/mL] 8 unit SUBCUT AC 06/27/20 Metoclopramide HCl [Reglan 10 mg Tablet] 10 mg PO ACHS 06/27/20 Multivitamin [Tab-A-Mariela (Multiple Vitamin) Tablet] 1 tab PO DAILY 06/27/20 Nitroglycerin [Nitrostat 0.4 mg (1/150 Gr) Tabs 25/Bottle] 1 tab SL Q5MP PRN 06/27/20 [place]-3 Acid Ethyl Esters [Lovaza 1 gm Capsule] 4 gm PO DAILY 06/27/20 Ondansetron [Zofran Odt 4 mg Tablet] 8 mg PO Q6HP PRN 06/27/20 Oxycodone HCl [Oxy-Ir 5 mg Tablet] 10 mg PO TIDP PRN 06/27/20 Rivaroxaban [Xarelto] 20 mg PO QPM 06/27/20 Silver Sulfadiazine [Silvadene 1% Cream 25 gm] 1 applic TOP DAILY 06/27/20 Trazodone HCl [Desyrel 50 mg Tablet] 50 mg PO QHS 06/27/20 Atorvastatin Calcium [Lipitor 80 mg Tablet] 80 mg PO QHS tablet 06/30/20 Bumetanide 3 mg PO BID 08/03/20 Calcitriol [Rocaltrol] 0.25 mcg PO TUTHSA 08/03/20 Ferrous Sulfate [Feosol 325 mg Tablet] 650 mg PO Q2D 08/03/20 Pantoprazole Sodium 40 mg PO DAILY 08/03/20 Potassium Chloride 20 meq PO BID 08/03/20 Sacubitril/Valsartan [Entresto 24 mg/26 mg Tablet] 1 tab PO Q12 08/03/20 Allergies/Adverse Reactions: amlodipine Allergy (Severe, Verified 08/02/20 16:44) Hallucinations isosorbide [From Imdur] Allergy (Intermediate, Verified 08/02/20 16:44) RASH zolpidem [From Ambien] Adverse Reaction (Severe, Verified 08/02/20 16:44) Hallucinations Review of Systems Constitutional: ABSENT: fever(s), headache(s) Eyes: ABSENT: visual disturbances Ears: ABSENT: hearing changes Respiratory: PRESENT: dyspnea Gastrointestinal: PRESENT: constipation, nausea, vomiting Genitourinary: PRESENT: other - frequent UTIs Integumentary: ABSENT: rash Neurological: PRESENT: weakness Hematologic/Lymphatic: PRESENT: easy bleeding Physical Exam Vital Signs: Temp Pulse Resp BP Pulse Ox 98.5 F 67 19 92/58 L 96 08/04/20 19:22 08/04/20 19:00 08/04/20 16:04 08/04/20 16:04 08/04/20 16:04 Intake & Output 08/03/20 08/04/20 08/05/20 06:59 06:59 06:59 Intake Total 2343 1430 960 Output Total 1400 1500 450 Balance 943 -70 510 Weight 79.5 kg 79.8 kg General appearance: PRESENT: no acute distress, well-developed, well-nourished Exam: 49 year old female. Head exam: PRESENT: atraumatic, normocephalic Eye exam: PRESENT: EOMI Mouth exam: PRESENT: dry mucosa Neck exam: ABSENT: lymphadenopathy, tenderness Respiratory exam: PRESENT: clear to auscultation amaya, unlabored Cardiovascular exam: PRESENT: RRR GI/Abdominal exam: PRESENT: distended, firm. ABSENT: tenderness Extremities exam: PRESENT: other - Left BKA right AKA Neurological exam: PRESENT: alert, awake Psychiatric exam: PRESENT: flat affect Skin exam: PRESENT: pallor Results Laboratory Results: 08/04/20 06:08 08/02/20 08/04/20 08/04/20 19:05 06:08 06:08 WBC 8.5 RBC 2.38 L Hgb 7.1 L Hct 20.9 L MCV 88 MCH 29.6 MCHC 33.8 RDW 17.7 H Plt Count 158 Seg Neutrophils % 77.2 Sodium 130.9 L Potassium 4.4 Chloride 99 Carbon Dioxide 22 Anion Gap 10 BUN 116 H Creatinine 2.56 H Est GFR ( Amer) 24 L Glucose 84 Calcium 7.6 L Blood Type O POSITIVE Antibody Screen NEGATIVE 08/02/20 20:52 Catheterized Urine Urine Culture - Final NO GROWTH 2 DAYS 08/02/20 08/02/20 08/03/20 17:14 22:52 10:44 Troponin I 0.046 1.870 9.440 08/03/20 08/04/20 18:13 06:08 Troponin I 5.660 3.100 Impressions: Chest X-Ray 08/02/20 17:30 IMPRESSION: Borderline heart size without sumeet pulmonary edema. GI Bleed Scan Nuclear Medicine 08/03/20 00:00 IMPRESSION: NORMAL RADIONUCLIDE GASTROINTESTINAL BLEEDING STUDY. Status: Image reviewed by me Assessment & Plan - Diagnosis (1) Hemolytic anemia Qualifiers: Hemolytic anemia type: unspecified autoimmune Qualified Code(s): D59.10 - Autoimmune hemolytic anemia, unspecified Is this a current diagnosis for this admission?: Yes Plan: Her LDH and retic are elevated. Her Ferritin is now high. There is no evidence of bleeding. I have explained to the patient the difference between hemolytic anemia and other types. She has been started on prednisone. Although I don't believe transfusions will help greatly, I agree with trying to keep HGB >8 for cardiac reasons. I have stopped the iron supplements. Await repeat CBC. I will be happy to follow her with you.
[2020-08-04 19:40] LABS: ABSOLUTE LYMPHOCYTES# (MANUAL) 0.1 10^3/uL (0.5-4.7); BASOPHILS % (MANUAL) 0 % (0-2); EOSINOPHILS % (MANUAL) 0 % (0-6); LYMPHOCYTES % (MANUAL) 1 % (13-45); MONOCYTES % (MANUAL) 0 % (3-13); SEGMENTED NEUTROPHILS % (MAN) 99 % (42-78); TOTAL CELLS COUNTED 100
[2020-08-04 19:41] LABS: ANISOCYTOSIS 1+; OVALOCYTES SLIGHT; PLATELET COMMENT ADEQUATE; SCHISTOCYTES SLIGHT
[2020-08-04] MEDS: ONDANSETRON 4 MG TAB.RAPDIS PO PRN (21:23)
[2020-08-04] MEDS: ATORVASTATIN CALCIUM 80 MG TABLET PO SCH (21:24)
[2020-08-04] MEDS: INSULIN GLARGINE,HUM.REC.ANLOG 1,000 UNIT/10 ML VIAL SUBCUT SCH (21:25)
[2020-08-05] MEDS: OXYCODONE HCL IR 5 MG TABLET PO PRN ×2 (05:09→20:29)
[2020-08-05] MEDS: GABAPENTIN 300 MG CAPSULE PO SCH ×4 (05:10→23:53)
[2020-08-05] MEDS: BACLOFEN 10 MG TABLET PO PRN (05:10)
[2020-08-05 07:00] LABS: ABSOLUTE LYMPHOCYTES (AUTO) 0.4 10^3/uL (0.5-4.7); ABSOLUTE MONOCYTES (AUTO) 0.2 10^3/uL (0.1-1.4); ABSOLUTE NEUT (AUTO) 4.3 10^3/uL (1.7-8.2); BASOPHILS % (AUTO) 0.2 % (0-2); HEMOGLOBIN 8.9 g/dL (12.0-15.5); LYMPHOCYTES % (AUTO) 7.9 % (13-45); MEAN CORPUSCULAR HEMOGLOBIN 29.9 pg (27.0-33.4); MEAN CORPUSCULAR HGB CONC 34.1 g/dL (32.0-36.0); MEAN CORPUSCULAR VOLUME 88 fl (80-97); MONOCYTES % (AUTO) 4.8 % (3-13); PLATELET COUNT 156 10^3/uL (150-450); RED BLOOD COUNT 2.97 10^6/uL (3.72-5.28); RED CELL DISTRIBUTION WIDTH 17.6 % (11.5-14.0); SEGMENTED NEUTROPHILS % (AUTO) 87.1 % (42-78); TOTAL CELLS COUNTED % (AUTO) 100 %; WHITE BLOOD COUNT 4.9 10^3/uL (4.0-10.5)
[2020-08-05 07:24] LABS: ANION GAP 12 (5-19); BLOOD UREA NITROGEN 99 mg/dL (7-20); CALCIUM 8.1 mg/dL (8.4-10.2); CARBON DIOXIDE 20 mmol/L (22-30); CHLORIDE 100 mmol/L (98-107); GLUCOSE 247 mg/dL (75-110); PHOSPHORUS 5.4 mg/dL (2.5-4.5); POTASSIUM 4.9 mmol/L (3.6-5.0)
[2020-08-05] MEDS: INSULIN LISPRO 100 UNIT/ML 3 ML VIAL SUBCUT SCH ×4 (08:49→23:02)
[2020-08-05] MEDS: METOCLOPRAMIDE HCL 10 MG TABLET PO SCH ×4 (08:50→23:01)
[2020-08-05] MEDS: PREDNISONE 20 MG TABLET PO SCH ×2 (08:50→17:13)
[2020-08-05] MEDS: DOCUSATE SODIUM 100 MG CAPSULE PO SCH (09:21)
[2020-08-05] MEDS: PANTOPRAZOLE SODIUM 40 MG VIAL IV SCH ×2 (09:21→23:00)
[2020-08-05] MEDS: BUSPIRONE HCL 10 MG TABLET PO SCH ×2 (09:21→17:10)
[2020-08-05] MEDS: FENOFIBRATE NANOCRYSTALLIZED 145 MG TABLET PO SCH (09:21)
[2020-08-05] MEDS: CITALOPRAM HYDROBROMIDE 20 MG TABLET PO SCH (09:21)
[2020-08-05] MEDS: MULTIVITAMIN TABLET PO SCH (09:21)
[2020-08-05] MEDS: OMEGA-3 ACID ETHYL ESTERS 1 GM CAPSULE PO SCH (09:22)
[2020-08-05] MEDS: BUMETANIDE 1 MG TABLET PO SCH ×2 (09:22→17:09)
[2020-08-05] MEDS: CARVEDILOL 3.125 MG TABLET PO SCH ×2 (09:23→23:00)
[2020-08-05] MEDS: SILVER SULFADIAZINE 1% CREAM 25 GM TOP SCH (09:24)
[2020-08-05] MEDS: CLOPIDOGREL BISULFATE 75 MG TABLET PO SCH (12:52)
[2020-08-05] MEDS: RIVAROXABAN 2.5 MG TABLET PO SCH ×2 (15:19→23:26)
--- NOTE | 2020-08-05 16:29 | PDOC PROGRESS REPORT ---
Subjective Date:: 08/05/20 Subjective:: Patient feels well today. States her breathing is improved. Denies any chest p ain. Reason For Visit: ACUTE LOWER GI BLEED, ACUTE BLOOD LOSS ANEMIA, Physical Exam Vital Signs: Temp Pulse Resp BP Pulse Ox 97.3 F 68 18 115/64 97 08/05/20 12:36 08/05/20 14:00 08/05/20 12:36 08/05/20 12:36 08/05/20 07:25 Intake & Output 08/04/20 08/05/20 08/06/20 06:59 06:59 06:59 Intake Total 1430 1181 760 Output Total 1500 2950 800 Balance -70 -1769 -40 Weight 79.8 kg 82.4 kg 82.4 kg General appearance: PRESENT: no acute distress, cooperative Neck exam: ABSENT: JVD Respiratory exam: PRESENT: symmetrical, unlabored. ABSENT: accessory muscle use, retraction, tachypnea, wheezes Cardiovascular exam: PRESENT: RRR, +S1, +S2. ABSENT: tachycardia GI/Abdominal exam: PRESENT: soft. ABSENT: rebound, rigid, tenderness Extremities exam: PRESENT: other - Bilateral amputee Neurological exam: PRESENT: alert, awake, oriented to person, oriented to place, oriented to time, oriented to situation Results Laboratory Results: 08/05/20 06:36 08/05/20 06:36 08/04/20 08/05/20 08/05/20 18:23 06:36 06:36 WBC 8.2 4.9 RBC 2.98 L 2.97 L Hgb 9.0 L 8.9 L Hct 27.1 L 26.0 L MCV 91 88 MCH 30.2 29.9 MCHC 33.2 34.1 RDW 17.8 H 17.6 H Plt Count 169 156 Seg Neutrophils % Not Reportable 87.1 H Sodium 132.4 L Potassium 4.9 Chloride 100 Carbon Dioxide 20 L Anion Gap 12 BUN 99 H Creatinine 2.01 H Est GFR ( Amer) 32 L Glucose 247 H Calcium 8.1 L Phosphorus 5.4 H Magnesium 2.8 H 08/02/20 08/02/20 08/03/20 17:14 22:52 10:44 Troponin I 0.046 1.870 9.440 08/03/20 08/04/20 18:13 06:08 Troponin I 5.660 3.100 Impressions: Chest X-Ray 08/02/20 17:30 IMPRESSION: Borderline heart size without sumeet pulmonary edema. GI Bleed Scan Nuclear Medicine 08/03/20 00:00 IMPRESSION: NORMAL RADIONUCLIDE GASTROINTESTINAL BLEEDING STUDY. Assessment and Plan - Diagnosis (1) Acute on chronic anemia Is this a current diagnosis for this admission?: Yes Plan: Patient had EGD and colonoscopy 1 month ago which showed mild gastritis but no evidence of bleeding as well as no evidence of GI bleed source in her colon. GI recommended no indication for repeat endoscopy and recommended tagged red blood cell scan which is negative for active bleeding. Patient's did note some dark stools for the past 3 days but this is likely from iron supplements. Joorelsilvia is currently on hold Cardiology recommends keeping H&H above 8 so she received another unit of blood today [4units so far] Iron studies last month did not show iron deficiency, consistent with chronic disease. B12 and folic acid were also normal and reticulocyte count was elevated as expected. LDH, initial potassium and phosphate elevated. I have consulted Dr. Tilley and she suspects hemolytic process and recommends starting patient on prednisone 40 mg twice daily which has been initiated. Also recommends direct Nicol test which is negative and flow cytometry for [facility]. We will monitor CBC closely. 08/05/2020 Patient's hemoglobin is stable today. We will continue her high-dose prednisone. Hematology is following to help guide management. Flow cytometry has been sent out. Working diagnosis now remains hemolytic anemia. Monitor CBC. Check LDH in the morning. (2) NSTEMI (non-ST elevated myocardial infarction) Is this a current diagnosis for this admission?: Yes Plan: Suspected to be type II [place] precipitated by severe anemia. Cardiology following. EF unchanged on echo 40 to 45% with inferior wall hypokinesia and grade 3 diastolic dysfunction. Troponin has peaked at 9 and declined EKG showed no evidence of STEMI but does show ST depressions and T wave inversions some of which are old (3) Acute on chronic systolic (congestive) heart failure Is this a current diagnosis for this admission?: Yes Plan: Combined systolic and diastolic heart failure. Stable at this point. Coreg and Bumex have been resumed now hypotension has resolved. Entresto remains on hold. We will see if blood pressure permits its resumption. (4) Acute kidney injury superimposed on chronic kidney disease Is this a current diagnosis for this admission?: Yes Plan: Baseline CKD stage IV. Creatinine now at baseline. (5) Nausea and vomiting Qualifiers: Vomiting type: unspecified Vomiting Intractability: non-intractable Qualified Code(s): R11.2 - Nausea with vomiting, unspecified Is this a current diagnosis for this admission?: Yes (6) COPD (chronic obstructive pulmonary disease) Qualifiers: COPD type: unspecified COPD Qualified Code(s): J44.9 - Chronic obstructive pulmonary disease, unspecified Is this a current diagnosis for this admission?: Yes (7) S/P CABG x 3 Is this a current diagnosis for this admission?: Yes Plan: History of CAD. Cardiology recommends switching to Plavix. On low-dose Xarelto as well. (8) Paroxysmal atrial fibrillation Is this a current diagnosis for this admission?: Yes Plan: So far not been in A. fib while in the hospital. She is on Xarelto at home. Cardiology recommends resuming Xarelto at lower dose 2.5 mg twice daily (9) Diabetes mellitus type 2 in obese Is this a current diagnosis for this admission?: Yes Plan: T2DM associated with morbid obesity BMI of 50. Hyperglycemia secondary to steroids. I will give a dose of NPH and increase her Lantus to every 12 hours dosing. - Time Time Spent with patient: 15-24 minutes Anticipated Discharge Disposition: Home, Self Care Anticipated Discharge Timeframe: within 72 hours
[2020-08-05] MEDS ORDERED: INSULIN NPH (ISOPHANE), HUMAN 100 UNIT/ML 3 ML SUBCUT ONE (17:00)
[2020-08-05] MEDS: CALCITRIOL 0.25 MCG CAPSULE PO SCH (17:13)
[2020-08-05] MEDS ORDERED: INSULIN GLARGINE,HUM.REC.ANLOG 1,000 UNIT/10 ML VIAL SUBCUT SCH (22:00)
--- NOTE | 2020-08-05 22:37 | PDOC PROGRESS REPORT ---
Subjective Date:: 08/05/20 Subjective:: Patient seems to be doing better with gradual improvement. Pt is denying any ch est arm or neck discomfort. Patient denying any PND, orthopnea. Patient denied any sustained palpitations, dizziness, syncope, near syncope. Patient denying any fever chills. Patient denying any other significant discomfort. Patient claims shortness of breath has improved significantly. Patient is maintaining sinus rhythm. Review of systems: Rest review of systems negative. Medications: Medications have been reviewed. Reason For Visit: ACUTE LOWER GI BLEED, ACUTE BLOOD LOSS ANEMIA, Physical Exam Vital Signs: Temp Pulse Resp BP Pulse Ox 97.5 F 63 17 114/65 97 08/05/20 15:59 08/05/20 15:59 08/05/20 15:59 08/05/20 15:59 08/05/20 15:59 Intake & Output 08/04/20 08/05/20 08/06/20 06:59 06:59 06:59 Intake Total 1430 1181 1000 Output Total 1500 2950 1500 Balance -70 -1769 -500 Weight 79.8 kg 82.4 kg 82.4 kg Exam: GENERAL: well-nourished and in no acute distress. Alert and oriented x3 HEAD: Atraumatic, normocephalic. EYES: ZACARIAS, sclera anicteric, conjunctiva are normal. ENT: Moist mucous membranes. No oral ulcerations or bleeding gums noted. No obvious ear, nose or throat abnormalities noted. NECK: supple without lymphadenopathy. Trachea is central. No cervical or axillary lymphadenopathy noted. Carotids are 2+, JVD WNL LUNGS: Bibasilar fine crackles noted. No wheezes rales or rhonchi noted. No significant dullness noted on percussion. CHEST: Palpation of the chest wall shows no significant chest wall tenderness. 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 ABDOMEN: Soft, no significant tenderness appreciated, normoactive bowel sounds. No guarding, no rebound. No rigidity noted . No masses appreciated. EXTREMITIES: Pedal pulses are 1-2+, no calf tenderness noted. No clubbing or cyanosis. Below-knee amputation right side and above-knee amputation left side. NEUROLOGICAL: Focused neurological exam showed no significant neurologic defi cit. Normal speech, no focal weakness appreciated. PSYCH: Normal mood, normal affect. Judgment and insight within normal limits. SKIN: No significant ecchymosis, skin is noted to be warm. MUSCULOSKELETAL EXAM: No significant acute joint swelling noted. Results Laboratory Results: 08/05/20 06:36 08/05/20 06:36 08/04/20 08/05/20 08/05/20 18:23 06:36 06:36 WBC 8.2 4.9 RBC 2.98 L 2.97 L Hgb 9.0 L 8.9 L Hct 27.1 L 26.0 L MCV 91 88 MCH 30.2 29.9 MCHC 33.2 34.1 RDW 17.8 H 17.6 H Plt Count 169 156 Seg Neutrophils % Not Reportable 87.1 H Sodium 132.4 L Potassium 4.9 Chloride 100 Carbon Dioxide 20 L Anion Gap 12 BUN 99 H Creatinine 2.01 H Est GFR ( Amer) 32 L Glucose 247 H Calcium 8.1 L Phosphorus 5.4 H Magnesium 2.8 H 08/02/20 08/02/20 08/03/20 17:14 22:52 10:44 Troponin I 0.046 1.870 9.440 08/03/20 08/04/20 18:13 06:08 Troponin I 5.660 3.100 Impressions: Chest X-Ray 08/02/20 17:30 IMPRESSION: Borderline heart size without sumeet pulmonary edema. GI Bleed Scan Nuclear Medicine 08/03/20 00:00 IMPRESSION: NORMAL RADIONUCLIDE GASTROINTESTINAL BLEEDING STUDY. Assessment & Plan - Diagnosis (1) Acute GI bleeding Is this a current diagnosis for this admission?: Yes (2) Acute blood loss anemia Is this a current diagnosis for this admission?: Yes (3) Acute kidney injury superimposed on CKD Is this a current diagnosis for this admission?: Yes (4) Acute on chronic systolic (congestive) heart failure Is this a current diagnosis for this admission?: Yes (5) NSTEMI (non-ST elevated myocardial infarction) Is this a current diagnosis for this admission?: Yes (6) CAD (coronary artery disease) of bypass graft Qualifiers: [place] vs. transplanted heart: [place] heart Is this a current diagnosis for this admission?: Yes - Notes Notes: NON-STEMI: [place] to be type II AL precipitated by severe anemia and hypotension on presentation. Patient currently without any symptoms indicative of ongoing ischemia. Recommend continue with beta-julius therapy, ARNI therapy. Patient was evaluated by senior clinical sas programmer who felt that anemia was due to hemolysis rather than chronic blood loss. We will therefore start patient back on Plavix. Will add oral anticoagulant at low-dose. Feel that best option would be Xarelto 2.5 mg p.o. twice daily. We have not noted any evidence of atrial fibrillation. Given patient's severe atherosclerotic disease, which is generalized, feel that this combination is probably better and also safe. However should patient develop atrial fibrillation, then Xarelto dose may need to be optimized to at least 15 to 20 mg a day. CONGESTIVE HEART FAILURE: Chronic diastolic/systolic CHF. No significant valve disease noted on echocardiogram. Recommend fluid balance, restrict salt, continue current regimen. Recommend maintaining hemoglobin above 8 g%. Have ordered bilevel therapy. Seems compensated. ACUTE ON CHRONIC KIDNEY DISEASE: Continue to monitor renal functions. Avoid nephrotoxic medications. At this point recommend maximizing medical therapy. Patient has multiple comorbid diagnoses including advanced chronic kidney disease. Should patient decompensate, develop significant cardiac dysrhythmia, worsening CHF then would recommend tertiary care transfer. Patient would benefit from a expedited referral to see her primary nuclear supervising operator as an outpatient very soon after discharge preferably within a week. 2D echo reviewed. EF relatively unchanged. Patient does have significant diastolic dysfunction. It is best to keep patient on somewhat on the dehydrated side. We will continue to follow patient through the hospitalization.
[2020-08-05] MEDS: ATORVASTATIN CALCIUM 80 MG TABLET PO SCH (23:03)
[2020-08-06] MEDS: OXYCODONE HCL IR 5 MG TABLET PO PRN ×2 (06:00→15:59)
[2020-08-06] MEDS: GABAPENTIN 300 MG CAPSULE PO SCH ×3 (06:00→17:11)
[2020-08-06 06:33] LABS: ABSOLUTE LYMPHOCYTES (AUTO) 0.3 10^3/uL (0.5-4.7); ABSOLUTE MONOCYTES (AUTO) 0.2 10^3/uL (0.1-1.4); ABSOLUTE NEUT (AUTO) 3.2 10^3/uL (1.7-8.2); BASOPHILS % (AUTO) 0.1 % (0-2); EOSINOPHILS % (AUTO) 0.1 % (0-6); HEMATOCRIT 27.4 % (36.0-47.0); HEMOGLOBIN 9.5 g/dL (12.0-15.5); LYMPHOCYTES % (AUTO) 9.2 % (13-45); MEAN CORPUSCULAR HEMOGLOBIN 30.2 pg (27.0-33.4); MEAN CORPUSCULAR HGB CONC 34.7 g/dL (32.0-36.0); MEAN CORPUSCULAR VOLUME 87 fl (80-97); MONOCYTES % (AUTO) 5.4 % (3-13); PLATELET COUNT 164 10^3/uL (150-450); RED BLOOD COUNT 3.15 10^6/uL (3.72-5.28); RED CELL DISTRIBUTION WIDTH 17.8 % (11.5-14.0); SEGMENTED NEUTROPHILS % (AUTO) 85.2 % (42-78); TOTAL CELLS COUNTED % (AUTO) 100 %; WHITE BLOOD COUNT 3.8 10^3/uL (4.0-10.5)
[2020-08-06] MEDS: ONDANSETRON HCL INJ/PF 4 MG/2 ML SDV IV PRN ×2 (06:41→20:17)
[2020-08-06 06:56] LABS: ANION GAP 9 (5-19); BLOOD UREA NITROGEN 93 mg/dL (7-20); CALCIUM 8.4 mg/dL (8.4-10.2); CARBON DIOXIDE 26 mmol/L (22-30); CHLORIDE 99 mmol/L (98-107); GLUCOSE 271 mg/dL (75-110); POTASSIUM 4.8 mmol/L (3.6-5.0)
--- NOTE | 2020-08-06 08:08 | Progress Note ---
Provider Note Provider Note: I was not able to see patient today but did review labs and she was discussed with Dr. Solis. Since starting the prednisone, her HGB has remained stable and her LDH has decreased dramatically. Plavix and Eliquis have been restarted and there is still no evidence of bleeding. I will consider decreasing the predni sone dose tomorrow if all remains stable. Please call me with any questions or concerns. I will continue to follow over the weekend.
[2020-08-06] MEDS ORDERED: INSULIN GLARGINE,HUM.REC.ANLOG 1,000 UNIT/10 ML VIAL (PYX) SUBCUT ONE (08:20)
[2020-08-06] MEDS ORDERED: INSULIN GLARGINE,HUM.REC.ANLOG 1,000 UNIT/10 ML VIAL (PYX) SUBCUT SCH ×2 (08:20→08:30)
[2020-08-06] MEDS: INSULIN LISPRO 100 UNIT/ML 3 ML VIAL SUBCUT SCH ×4 (08:37→22:04)
[2020-08-06] MEDS: PREDNISONE 20 MG TABLET PO SCH ×2 (08:38→17:10)
[2020-08-06] MEDS: METOCLOPRAMIDE HCL 10 MG TABLET PO SCH ×4 (08:38→22:03)
[2020-08-06] MEDS: BUMETANIDE 1 MG TABLET PO SCH ×2 (10:00→17:11)
[2020-08-06] MEDS: CITALOPRAM HYDROBROMIDE 20 MG TABLET PO SCH (10:00)
[2020-08-06] MEDS: DOCUSATE SODIUM 100 MG CAPSULE PO SCH (10:00)
[2020-08-06] MEDS: FENOFIBRATE NANOCRYSTALLIZED 145 MG TABLET PO SCH (10:00)
[2020-08-06] MEDS: MULTIVITAMIN TABLET PO SCH (10:00)
[2020-08-06] MEDS: CLOPIDOGREL BISULFATE 75 MG TABLET PO SCH (10:00)
[2020-08-06] MEDS: RIVAROXABAN 2.5 MG TABLET PO SCH (10:01)
[2020-08-06] MEDS: BUSPIRONE HCL 10 MG TABLET PO SCH ×2 (10:01→17:11)
[2020-08-06] MEDS: OMEGA-3 ACID ETHYL ESTERS 1 GM CAPSULE PO SCH (10:02)
[2020-08-06] MEDS: CARVEDILOL 3.125 MG TABLET PO SCH ×2 (10:02→22:03)
[2020-08-06] MEDS: SILVER SULFADIAZINE 1% CREAM 25 GM TOP SCH (10:08)
--- NOTE | 2020-08-06 10:56 | PDOC PROGRESS REPORT ---
Subjective Date:: 08/06/20 Subjective:: Patient seems to be doing better with gradual improvement. Pt is denying any ch est arm or neck discomfort. Patient denying any PND, orthopnea. Patient denied any sustained palpitations, dizziness, syncope, near syncope. Patient denying any fever chills. Patient denying any other significant discomfort. Patient claims shortness of breath has improved significantly. Patient is maintaining sinus rhythm. Patient was started on clopidogrel and Xarelto. There is no bleeding. Her hemoglobin been stable. Dr. Christian's notes reviewed. Review of systems: Rest review of systems negative. Medications: Medications have been reviewed. Reason For Visit: ACUTE LOWER GI BLEED, ACUTE BLOOD LOSS ANEMIA, Physical Exam Vital Signs: Temp Pulse Resp BP Pulse Ox 97.5 F 64 18 129/67 H 92 08/06/20 09:28 08/06/20 08:00 08/06/20 08:00 08/06/20 08:00 08/06/20 08:00 Intake & Output 08/05/20 08/06/20 08/07/20 06:59 06:59 06:59 Intake Total 1181 1711 Output Total 2950 5905 Balance -8069 -3303 Weight 82.4 kg 81.5 kg Exam: Unchanged from yesterday but pertinent cardiac findings include JVP to be within normal limit. Cardiac exam shows regular heart sounds no significant murmurs are noted. Lungs are clear. Abdomen is obese but without any evidence of free fluid. No edema noted although patient has bilateral amputation of lower extremities. Results Laboratory Results: 08/06/20 05:42 08/06/20 05:42 08/06/20 08/06/20 05:42 05:42 WBC 3.8 L RBC 3.15 L Hgb 9.5 L Hct 27.4 L MCV 87 MCH 30.2 MCHC 34.7 RDW 17.8 H Plt Count 164 Seg Neutrophils % 85.2 H Sodium 133.8 L Potassium 4.8 Chloride 99 Carbon Dioxide 26 Anion Gap 9 BUN 93 H Creatinine 1.59 H Est GFR ( Amer) 42 L Glucose 271 H Calcium 8.4 08/02/20 08/02/20 08/03/20 17:14 22:52 10:44 Troponin I 0.046 1.870 9.440 01/12/21 01/13/21 18:13 06:08 Troponin I 5.660 3.100 Impressions: Chest X-Ray 08/02/20 17:30 IMPRESSION: Borderline heart size without sumeet pulmonary edema. GI Bleed Scan Nuclear Medicine 08/03/20 00:00 IMPRESSION: NORMAL RADIONUCLIDE GASTROINTESTINAL BLEEDING STUDY. Assessment & Plan - Diagnosis (1) Acute GI bleeding Is this a current diagnosis for this admission?: Yes (2) Acute blood loss anemia Is this a current diagnosis for this admission?: Yes (3) Acute kidney injury superimposed on CKD Is this a current diagnosis for this admission?: Yes (4) Acute on chronic systolic (congestive) heart failure Is this a current diagnosis for this admission?: Yes (5) NSTEMI (non-ST elevated myocardial infarction) Is this a current diagnosis for this admission?: Yes (6) CAD (coronary artery disease) of bypass graft Qualifiers: [place] vs. transplanted heart: [place] heart Is this a current diagnosis for this admission?: Yes - Notes Notes: No new recommendations. Patient has shown gradual improvement. At this point, patient has been advised to increase activities especially about transferring herself from bed to the wheelchair. Patient can tolerate this and other usual activities, she will then be ready for discharge. Patient medical regimen is felt to be very optimal. Discussed that she would need to make an appointment with her systems program manager fairly soon after discharge so that further evaluation can be completed by a person who is well versed with her comorbid conditions and cardiac status. Patient understands this and agrees with this approach. - Time Time with patient: 15-25 minutes Medications reviewed and adjusted accordingly: Yes
--- NOTE | 2020-08-06 11:35 | PDOC PROGRESS REPORT ---
Subjective Date:: 08/06/20 Subjective:: Patient continues to feel better. Breathing has improved as well. Denies nause a or vomiting. Had questions about her renal function. Also discussed with her regarding her Xarelto that she was on. She states that she had severe blood clots in one of her legs that caused muscle damage and ended up leading to amputation following her bypass surgery. States she has been on Xarelto since then. She does have history of A. fib and had an ablation done in 2012. She has not had any issues with her A. fib since then. Reason For Visit: ACUTE LOWER GI BLEED, ACUTE BLOOD LOSS ANEMIA, Physical Exam Vital Signs: Temp Pulse Resp BP Pulse Ox 97.5 F 64 18 129/67 H 92 08/06/20 09:28 08/06/20 08:00 08/06/20 08:00 08/06/20 08:00 08/06/20 08:00 Intake & Output 08/05/20 08/06/20 08/07/20 06:59 06:59 06:59 Intake Total 1181 1711 Output Total 2955 8595 Balance -8279 -5179 Weight 82.4 kg 81.5 kg General appearance: PRESENT: no acute distress, cooperative Neck exam: ABSENT: JVD Respiratory exam: PRESENT: clear to auscultation amaya, symmetrical, unlabored. ABSENT: tachypnea, wheezes Cardiovascular exam: PRESENT: RRR, +S1, +S2. ABSENT: tachycardia GI/Abdominal exam: PRESENT: soft. ABSENT: rebound, rigid, tenderness Extremities exam: PRESENT: other - Bilateral amputee. ABSENT: pedal edema Neurological exam: PRESENT: alert, awake, oriented to person, oriented to place, oriented to time, oriented to situation Results Laboratory Results: 08/06/20 05:42 08/06/20 05:42 08/06/20 08/06/20 05:42 05:42 WBC 3.8 L RBC 3.15 L Hgb 9.5 L Hct 27.4 L MCV 87 MCH 30.2 MCHC 34.7 RDW 17.8 H Plt Count 164 Seg Neutrophils % 85.2 H Sodium 133.8 L Potassium 4.8 Chloride 99 Carbon Dioxide 26 Anion Gap 9 BUN 93 H Creatinine 1.59 H Est GFR ( Amer) 42 L Glucose 271 H Calcium 8.4 08/02/20 08/02/2008/03/21 17:14 22:52 10:44 Troponin I 0.046 1.870 9.440 08/03/20 08/04/20 18:13 06:08 Troponin I 5.660 3.100 Impressions: Chest X-Ray 08/02/20 17:30 IMPRESSION: Borderline heart size without sumeet pulmonary edema. GI Bleed Scan Nuclear Medicine 08/03/20 00:00 IMPRESSION: NORMAL RADIONUCLIDE GASTROINTESTINAL BLEEDING STUDY. Assessment and Plan - Diagnosis (1) Hemolytic anemia Qualifiers: Hemolytic anemia type: unspecified autoimmune Qualified Code(s): D59.10 - Autoimmune hemolytic anemia, unspecified Is this a current diagnosis for this admission?: Yes Plan: Patient had EGD and colonoscopy 1 month ago which showed mild gastritis but no evidence of bleeding as well as no evidence of GI bleed source in her colon. GI recommended no indication for repeat endoscopy and recommended tagged red blood cell scan which is negative for active bleeding. Patient's did note some dark stools for the past 3 days but this is likely from iron supplements. Aruna is currently on hold Cardiology recommends keeping H&H above 8 so she received another unit of blood today [4units so far] Iron studies last month did not show iron deficiency, consistent with chronic disease. B12 and folic acid were also normal and reticulocyte count was elevated as expected. LDH, initial potassium and phosphate elevated. I have consulted Dr. Tilley and she suspects hemolytic process and recommends starting patient on prednisone 40 mg twice daily which has been initiated. Also recommends direct Nicol test which is negative and flow cytometry for PNH. We will monitor CBC closely. 08/05/2020 Patient's hemoglobin is stable today. We will continue her high-dose prednis one. Hematology is following to help guide management. Flow cytometry has been sent out. Working diagnosis now remains hemolytic anemia. Monitor CBC. Check LDH in the morning. 08/06/2020 Patient's hemoglobin is looking good. She is responding to treatment with high- dose prednisone. Her LDH is much lower at this morning. (2) NSTEMI (non-ST elevated myocardial infarction) Is this a current diagnosis for this admission?: Yes Plan: Suspected to be type II [place] precipitated by severe anemia. Cardiology following. EF unchanged on echo 40 to 45% with inferior wall hypokinesia and grade 3 diastolic dysfunction. Troponin has peaked at 9 and declined EKG showed no evidence of STEMI but does show ST depressions and T wave inver sions some of which are old Outpatient follow-up with her primary clinical product specialist (3) Acute on chronic systolic (congestive) heart failure Is this a current diagnosis for this admission?: Yes Plan: Combined systolic and diastolic heart failure. Stable at this point. Continue Coreg and Bumex. Has been diuresing extremely well. Her BP has been holding up so I will resume her low-dose Entresto and see how her blood pressure responds. (4) Acute kidney injury superimposed on chronic kidney disease Is this a current diagnosis for this admission?: Yes Plan: Baseline CKD stage IV. Creatinine continues to show improvement now even better than her baseline. (5) Nausea and vomiting Qualifiers: Vomiting type: unspecified Vomiting Intractability: non-intractable Qualified Code(s): R11.2 - Nausea with vomiting, unspecified Is this a current diagnosis for this admission?: Yes (6) COPD (chronic obstructive pulmonary disease) Qualifiers: COPD type: unspecified COPD Qualified Code(s): J44.9 - Chronic obstructive pulmonary disease, unspecified Is this a current diagnosis for this admission?: Yes (7) S/P CABG x 3 Is this a current diagnosis for this admission?: Yes (8) Paroxysmal atrial fibrillation Is this a current diagnosis for this admission?: Yes Plan: So far not been in A. fib while in the hospital. Status post ablation in 2012. States she has not had any issues with her A. fib since then. Has history of CV A. 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 On chronic Xarelto. Have discussed with cardiology and we will change to Eliquis 5/5 given her renal function. \ (9) Diabetes mellitus type 2 in obese Is this a current diagnosis for this admission?: Yes Plan: T2DM associated with morbid obesity BMI of 50. Hyperglycemia secondary to steroids. I will increase her Lantus dose. Sliding scale insulin. - Time Time Spent with patient: 15-24 minutes Anticipated Discharge Disposition: Home with Home Health Anticipated Discharge Timeframe: within 48 hours
[2020-08-06] MEDS: SACUBITRIL/VALSARTAN 24 MG/26 MG TABLET PO SCH ×2 (12:03→22:03)
[2020-08-06] MEDS: PANTOPRAZOLE SODIUM 40 MG TABLET.DR PO SCH (12:04)
[2020-08-06] MEDS ORDERED: INSULIN GLARGINE,HUM.REC.ANLOG 1,000 UNIT/10 ML VIAL SUBCUT SCH (20:00)
[2020-08-06] MEDS: ACETAMINOPHEN 325 MG TABLET PO PRN (20:17)
[2020-08-06] MEDS: INSULIN GLARGINE,HUM.REC.ANLOG 1,000 UNIT/10 ML VIAL SUBCUT SCH (22:03)
[2020-08-06] MEDS: ATORVASTATIN CALCIUM 80 MG TABLET PO SCH (22:03)
[2020-08-06] MEDS: APIXABAN 5 MG TABLET PO SCH (22:04)
[2020-08-06] MEDS ORDERED: MAGNESIUM HYDROXIDE SUSP 30 ML UDCUP PO PRN (23:45)
[2020-08-07] MEDS: OXYCODONE HCL IR 5 MG TABLET PO PRN ×3 (00:02→16:24)
[2020-08-07] MEDS: GABAPENTIN 300 MG CAPSULE PO SCH ×5 (00:02→23:51)
[2020-08-07] MEDS: BACLOFEN 10 MG TABLET PO PRN ×3 (00:44→16:25)
[2020-08-07 05:31] LABS: HEMATOCRIT 29.3 % (36.0-47.0); MEAN CORPUSCULAR HEMOGLOBIN 29.8 pg (27.0-33.4); MEAN CORPUSCULAR HGB CONC 34.1 g/dL (32.0-36.0); MEAN CORPUSCULAR VOLUME 87 fl (80-97); PLATELET COUNT 166 10^3/uL (150-450); RED BLOOD COUNT 3.35 10^6/uL (3.72-5.28); RED CELL DISTRIBUTION WIDTH 17.8 % (11.5-14.0); WHITE BLOOD COUNT 4.2 10^3/uL (4.0-10.5)
[2020-08-07 05:45] LABS: ANION GAP 8 (5-19); BLOOD UREA NITROGEN 87 mg/dL (7-20); CALCIUM 8.8 mg/dL (8.4-10.2); CARBON DIOXIDE 33 mmol/L (22-30); CHLORIDE 93 mmol/L (98-107); GLUCOSE 269 mg/dL (75-110); POTASSIUM 4.5 mmol/L (3.6-5.0)
[2020-08-07] MEDS: METOCLOPRAMIDE HCL 10 MG TABLET PO SCH ×4 (07:56→23:51)
[2020-08-07] MEDS: PANTOPRAZOLE SODIUM 40 MG TABLET.DR PO SCH (07:56)
[2020-08-07] MEDS: INSULIN LISPRO 100 UNIT/ML 3 ML VIAL SUBCUT SCH ×4 (07:56→23:52)
[2020-08-07] MEDS: INSULIN GLARGINE,HUM.REC.ANLOG 1,000 UNIT/10 ML VIAL SUBCUT SCH ×2 (07:57→23:51)
[2020-08-07] MEDS: PREDNISONE 20 MG TABLET PO SCH (07:59)
[2020-08-07] MEDS: CLOPIDOGREL BISULFATE 75 MG TABLET PO SCH (09:37)
[2020-08-07] MEDS: CARVEDILOL 3.125 MG TABLET PO SCH ×2 (09:37→23:50)
[2020-08-07] MEDS: BUSPIRONE HCL 10 MG TABLET PO SCH ×2 (09:37→17:26)
[2020-08-07] MEDS: APIXABAN 5 MG TABLET PO SCH ×2 (09:37→23:51)
[2020-08-07] MEDS: CITALOPRAM HYDROBROMIDE 20 MG TABLET PO SCH (09:37)
[2020-08-07] MEDS: OMEGA-3 ACID ETHYL ESTERS 1 GM CAPSULE PO SCH (09:37)
[2020-08-07] MEDS: MULTIVITAMIN TABLET PO SCH (09:37)
[2020-08-07] MEDS: FENOFIBRATE NANOCRYSTALLIZED 145 MG TABLET PO SCH (09:37)
[2020-08-07] MEDS: DOCUSATE SODIUM 100 MG CAPSULE PO SCH (09:37)
[2020-08-07] MEDS: BUMETANIDE 1 MG TABLET PO SCH ×2 (09:38→17:54)
[2020-08-07] MEDS: SACUBITRIL/VALSARTAN 24 MG/26 MG TABLET PO SCH (09:38)
[2020-08-07] MEDS: SILVER SULFADIAZINE 1% CREAM 25 GM TOP SCH (09:47)
--- NOTE | 2020-08-07 10:37 | Progress Note ---
Provider Note Provider Note: Although patient was not seen this morning, chart was reviewed. No new concerns from nurses. No evidence of active bleeding. Her HGB continues to increase and her LDH has improved. I will decrease her prednisone and continue to monitor. Agree with blood thinners as long as PLT >50. I will continue to follow. Please call with any concerns.
[2020-08-07] MEDS: INSULIN REG, HUMAN 100 UNIT/ML 3 ML VIAL (PYX) SUBCUT SCH ×2 (12:12→15:28)
--- NOTE | 2020-08-07 12:48 | PDOC PROGRESS REPORT ---
Subjective Date:: 08/07/20 Subjective:: Patient seems to be doing better with gradual improvement. Pt is denying any ch est arm or neck discomfort. Patient denying any PND, orthopnea. Patient denied any sustained palpitations, dizziness, syncope, near syncope. Patient denying any fever chills. Patient denying any other significant discomfort. Hemoglobin has improved significantly. Patient is maintaining sinus rhythm. Patient placed on full dose anticoagulation with Eliquis. There is no bleeding. Her hemoglobin been stable. Dr. Christian's notes reviewed. Review of systems: Rest review of systems negative. Medications: Medications have been reviewed. Reason For Visit: ACUTE LOWER GI BLEED, ACUTE BLOOD LOSS ANEMIA, Physical Exam Vital Signs: Temp Pulse Resp BP Pulse Ox 97.9 F 62 16 129/62 H 96 08/07/20 11:10 08/07/20 11:10 08/07/20 11:10 08/07/20 11:10 08/07/20 11:10 Intake & Output 08/06/20 08/07/20 08/08/20 06:59 06:59 06:59 Intake Total 1711 1780 Output Total 5446 3917 Balance -2915 -0329 Weight 81.5 kg 79.8 kg Exam: GENERAL: well-nourished and in no acute distress. Alert and oriented x3 HEAD: Atraumatic, normocephalic. EYES: ZACARIAS, sclera anicteric, conjunctiva are normal. ENT: Moist mucous membranes. No oral ulcerations or bleeding gums noted. No obvious ear, nose or throat abnormalities noted. NECK: supple without lymphadenopathy. Trachea is central. No cervical or axillary lymphadenopathy noted. Carotids are 2+, JVD WNL LUNGS: Bibasilar fine crackles noted. No wheezes rales or rhonchi noted. No significant dullness noted on percussion. CHEST: Palpation of the chest wall shows no significant chest wall tenderness. 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 ABDOMEN: Soft, no significant tenderness appreciated, normoactive bowel sounds. No guarding, no rebound. No rigidity noted . No masses appreciated. EXTREMITIES: Pedal pulses are 1-2+, no calf tenderness noted. No clubbing or cyanosis. Below-knee amputation right side and above-knee amputation left side. NEUROLOGICAL: Focused neurological exam showed no significant neurologic deficit . Normal speech, no focal weakness appreciated. PSYCH: Normal mood, normal affect. Judgment and insight within normal limits. SKIN: No significant ecchymosis, skin is noted to be warm. MUSCULOSKELETAL EXAM: No significant acute joint swelling noted. Results Laboratory Results: 08/07/20 04:06 08/07/20 04:06 08/07/20 08/07/20 04:06 04:06 WBC 4.2 RBC 3.35 L Hgb 10.0 L Hct 29.3 L MCV 87 MCH 29.8 MCHC 34.1 RDW 17.8 H Plt Count 166 Sodium 134.0 L Potassium 4.5 Chloride 93 L Carbon Dioxide 33 H Anion Gap 8 BUN 87 H Creatinine 1.28 H Est GFR ( Amer) 53 L Glucose 269 H Calcium 8.8 Magnesium 2.2 08/02/20 08/02/20 08/03/20 17:14 22:52 10:44 Troponin I 0.046 1.870 9.440 08/03/20 08/04/20 18:13 06:08 Troponin I 5.660 3.100 Impressions: Chest X-Ray 08/02/20 17:30 IMPRESSION: Borderline heart size without sumeet pulmonary edema. GI Bleed Scan Nuclear Medicine 08/03/20 00:00 IMPRESSION: NORMAL RADIONUCLIDE GASTROINTESTINAL BLEEDING STUDY. Assessment & Plan - Diagnosis (1) NSTEMI (non-ST elevated myocardial infarction) Is this a current diagnosis for this admission?: Yes (2) Acute on chronic systolic (congestive) heart failure Is this a current diagnosis for this admission?: Yes (3) Acute kidney injury superimposed on CKD Is this a current diagnosis for this admission?: Yes (4) CAD (coronary artery disease) of bypass graft Qualifiers: [place] vs. transplanted heart: [place] heart Is this a current diagnosis for this admission?: Yes (5) Sleep apnea syndrome Qualifiers: Sleep apnea type: unspecified type Qualified Code(s): G47.30 - Sleep apnea, unspecified Is this a current diagnosis for this admission?: Yes - Notes Notes: Non-STEMI: Type II related to supply demand mismatch secondary to severe anemia. Patient did not have any chest pain, EKG changes were nonspecific. Patient has done well with medical management. Patient has agreed to follow-up with her hogshead mat assembler and hospice registered nurse fairly soon after discharge. I will be happy to see her in follow-up if needed specially for sleep apnea purposes. Acute on chronic systolic heart failure: Patient has systolic plus diastolic heart failure. Recommend increasing Entresto dose further. Continue with other management plans. Anemia: Hemolytic. Hemoglobin stable on prednisone therapy. Acute on chronic kidney disease: Currently stable. Hemoglobin and creatinine has improved significantly. CAD: Currently stable. Sleep apnea syndrome: Patient will probably need to be retested and restarted. We will be happy to facilitate this if needed.
--- NOTE | 2020-08-07 13:44 | PDOC PROGRESS REPORT ---
Subjective Date:: 08/07/20 Subjective:: Patient continues to feel better. She has no complaints today. She is not havi ng any shortness of breath or chest pain. She did put out over 6 L of urine yesterday so I have decided to reduce her Bumex dose. Renal function and hemoglobin continues to get better. Reason For Visit: ACUTE LOWER GI BLEED, ACUTE BLOOD LOSS ANEMIA, Physical Exam Vital Signs: Temp Pulse Resp BP Pulse Ox 97.9 F 62 16 129/62 H 96 08/07/20 11:10 08/07/20 11:10 08/07/20 11:10 08/07/20 11:10 08/07/20 11:10 Intake & Output 08/06/20 08/07/20 08/08/20 06:59 06:59 06:59 Intake Total 1711 1780 1242 Output Total 3137 8865 1250 Balance -2764 -5090 -8 Weight 81.5 kg 79.8 kg 79.8 kg General appearance: PRESENT: no acute distress, cooperative Neck exam: ABSENT: JVD Respiratory exam: PRESENT: symmetrical, unlabored. ABSENT: accessory muscle use, tachypnea Cardiovascular exam: PRESENT: RRR. ABSENT: bradycardia, irregular rhythm, tachycardia GI/Abdominal exam: PRESENT: soft. ABSENT: rebound, rigid, tenderness Neurological exam: PRESENT: alert, awake, oriented to person, oriented to place, oriented to time, oriented to situation Psychiatric exam: ABSENT: agitated, anxious Results Laboratory Results: 08/07/20 04:06 08/07/20 04:06 08/07/20 08/07/20 04:06 04:06 WBC 4.2 RBC 3.35 L Hgb 10.0 L Hct 29.3 L MCV 87 MCH 29.8 MCHC 34.1 RDW 17.8 H Plt Count 166 Sodium 134.0 L Potassium 4.5 Chloride 93 L Carbon Dioxide 33 H Anion Gap 8 BUN 87 H Creatinine 1.28 H Est GFR ( Amer) 53 L Glucose 269 H Calcium 8.8 Magnesium 2.2 08/02/20 08/02/20 08/03/20 17:14 22:52 10:44 Troponin I 0.046 1.870 9.440 08/03/20 08/04/20 18:13 06:08 Troponin I 5.660 3.100 Impressions: Chest X-Ray 08/02/20 17:30 IMPRESSION: Borderline heart size without sumeet pulmonary edema. GI Bleed Scan Nuclear Medicine 08/03/20 00:00 IMPRESSION: NORMAL RADIONUCLIDE GASTROINTESTINAL BLEEDING STUDY. Assessment and Plan - Diagnosis (1) Hemolytic anemia Qualifiers: Hemolytic anemia type: unspecified autoimmune Qualified Code(s): D59.10 - Autoimmune hemolytic anemia, unspecified Is this a current diagnosis for this admission?: Yes Plan: Patient had EGD and colonoscopy 1 month ago which showed mild gastritis but no evidence of bleeding as well as no evidence of GI bleed source in her colon. GI recommended no indication for repeat endoscopy and recommended tagged red blood cell scan which is negative for active bleeding. Patient's did note some dark stools for the past 3 days but this is likely from iron supplements. Aruna is currently on hold Cardiology recommends keeping H&H above 8 so she received another unit of blood today [4units so far] Iron studies last month did not show iron deficiency, consistent with chronic disease. B12 and folic acid were also normal and reticulocyte count was elevated as expected. LDH, initial potassium and phosphate elevated. I have consulted Dr. Tilley and she suspects hemolytic process and recommends starting patient on prednisone 40 mg twice daily which has been initiated. Also recommends direct Nicol test which is negative and flow cytometry for [facility]. We will monitor CBC closely. 08/05/2020 Patient's hemoglobin is stable today. We will continue her high-dose prednisone. Hematology is following to help guide management. Flow cytometry has been sent out. Working diagnosis now remains hemolytic anemia. Monitor CBC. Check LDH in the morning. 08/06/2020 Patient's hemoglobin is looking good. She is responding to treatment with high- dose prednisone. Her LDH is much lower at this morning. 08/07/2020 Hemoglobin continues to look good. Prednisone regimen decreased to 40 mg daily by hematology. (2) NSTEMI (non-ST elevated myocardial infarction) Is this a current diagnosis for this admission?: Yes Plan: Suspected to be type II [place] precipitated by severe anemia. Cardiology following. EF unchanged on echo 40 to 45% with inferior wall hypokinesia and grade 3 d iastolic dysfunction. 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 Diony Machado (3) Acute on chronic systolic (congestive) heart failure Is this a current diagnosis for this admission?: Yes Plan: Combined systolic and diastolic heart failure. Continue Coreg and Entresto. Act ually diuresing too well. She put out over 6 L of urine in the past 24 hours. I will reduce her Bumex dose to 1 mg from 3 mg twice daily to avoid dehydration. (4) Acute kidney injury superimposed on chronic kidney disease Is this a current diagnosis for this admission?: Yes Plan: Her creatinine continues to improve with diuresis and actually is currently looking a lot better than her baseline. Continue to monitor I's and O's. Avoid nephrotoxic medications. (5) Nausea and vomiting Qualifiers: Vomiting type: unspecified Vomiting Intractability: non-intractable Qualified Code(s): R11.2 - Nausea with vomiting, unspecified Is this a current diagnosis for this admission?: Yes Plan: Antiemetics as needed (6) COPD (chronic obstructive pulmonary disease) Qualifiers: COPD type: unspecified COPD Qualified Code(s): J44.9 - Chronic obstructive pulmonary disease, unspecified Is this a current diagnosis for this admission?: Yes Plan: Nebs as needed (7) S/P CABG x 3 Is this a current diagnosis for this admission?: Yes Plan: History of CAD. Cardiology recommended switching to Plavix. (8) Paroxysmal atrial fibrillation Is this a current diagnosis for this admission?: Yes Plan: So far not been in A. fib while in the hospital. Status post ablation in 2012. States she has not had any issues with her A. fib since then. Has history of CVA. 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 On chronic Xarelto. Have discussed with cardiology and AC changed to Eliquis 5/5 given her renal function. \ (9) Diabetes mellitus type 2 in obese Is this a current diagnosis for this admission?: Yes Plan: T2DM associated with morbid obesity BMI of 50. Hyperglycemia secondary to steroids. Continue Lantus. AC Humalog resumed. Sliding scale insulin. - Time Time Spent with patient: 15-24 minutes Anticipated Discharge Disposition: Home with Home Health Anticipated Discharge Timeframe: 24-48h
[2020-08-07] MEDS: CALCITRIOL 0.25 MCG CAPSULE PO SCH (16:25)
[2020-08-07] MEDS: ONDANSETRON 4 MG TAB.RAPDIS PO PRN (17:26)
[2020-08-07] MEDS: ATORVASTATIN CALCIUM 80 MG TABLET PO SCH (23:50)
[2020-08-08] MEDS: OXYCODONE HCL IR 5 MG TABLET PO PRN ×2 (00:11→08:14)
[2020-08-08] MEDS: BACLOFEN 10 MG TABLET PO PRN ×2 (00:11→06:23)
[2020-08-08] MEDS: SACUBITRIL/VALSARTAN 24 MG/26 MG TABLET PO SCH ×4 (00:12→22:01)
[2020-08-08] MEDS: GABAPENTIN 300 MG CAPSULE PO SCH ×4 (06:23→23:09)
[2020-08-08 07:14] LABS: HEMATOCRIT 32.3 % (36.0-47.0); HEMOGLOBIN 10.9 g/dL (12.0-15.5); MEAN CORPUSCULAR HEMOGLOBIN 29.5 pg (27.0-33.4); MEAN CORPUSCULAR HGB CONC 33.6 g/dL (32.0-36.0); MEAN CORPUSCULAR VOLUME 88 fl (80-97); PLATELET COUNT 206 10^3/uL (150-450); RED BLOOD COUNT 3.68 10^6/uL (3.72-5.28); RED CELL DISTRIBUTION WIDTH 18.5 % (11.5-14.0)
[2020-08-08 07:37] LABS: ANION GAP 5 (5-19); BLOOD UREA NITROGEN 80 mg/dL (7-20); CALCIUM 8.7 mg/dL (8.4-10.2); CARBON DIOXIDE 37 mmol/L (22-30); CHLORIDE 92 mmol/L (98-107); POTASSIUM 4.3 mmol/L (3.6-5.0)
[2020-08-08 07:40] LABS: GLUCOSE 48 mg/dL (75-110)
[2020-08-08] MEDS: METOCLOPRAMIDE HCL 10 MG TABLET PO SCH ×4 (08:15→22:01)
[2020-08-08] MEDS: INSULIN REG, HUMAN 100 UNIT/ML 3 ML VIAL (PYX) SUBCUT SCH ×3 (08:15→17:12)
[2020-08-08] MEDS: PREDNISONE 20 MG TABLET PO SCH (08:15)
[2020-08-08] MEDS: PANTOPRAZOLE SODIUM 40 MG TABLET.DR PO SCH (08:15)
[2020-08-08] MEDS: INSULIN LISPRO 100 UNIT/ML 3 ML VIAL SUBCUT SCH ×4 (08:16→22:00)
[2020-08-08] MEDS: FENOFIBRATE NANOCRYSTALLIZED 145 MG TABLET PO SCH (10:41)
[2020-08-08] MEDS: CLOPIDOGREL BISULFATE 75 MG TABLET PO SCH (10:41)
[2020-08-08] MEDS: CITALOPRAM HYDROBROMIDE 20 MG TABLET PO SCH (10:47)
[2020-08-08] MEDS: OMEGA-3 ACID ETHYL ESTERS 1 GM CAPSULE PO SCH (10:47)
[2020-08-08] MEDS: CARVEDILOL 3.125 MG TABLET PO SCH ×2 (10:48→22:01)
[2020-08-08] MEDS: DOCUSATE SODIUM 100 MG CAPSULE PO SCH (10:48)
[2020-08-08] MEDS: BUSPIRONE HCL 10 MG TABLET PO SCH ×3 (10:48→17:11)
[2020-08-08] MEDS: APIXABAN 5 MG TABLET PO SCH ×2 (10:49→22:01)
[2020-08-08] MEDS: MULTIVITAMIN TABLET PO SCH (10:49)
[2020-08-08] MEDS: BUMETANIDE 1 MG TABLET PO SCH ×2 (11:03→11:44)
[2020-08-08] MEDS: SILVER SULFADIAZINE 1% CREAM 25 GM TOP SCH (11:03)
--- NOTE | 2020-08-08 12:13 | PDOC PROGRESS REPORT ---
Subjective Date:: 08/08/20 Subjective:: Patient seems to be doing better with now significant improvement. Pt is denyin g any chest arm or neck discomfort. Patient denying any PND, orthopnea. Patient denied any sustained palpitations, dizziness, syncope, near syncope. Patient denying any fever chills. Patient denying any other significant discomfort. Hemoglobin has improved significantly. Patient is maintaining sinus rhythm. Patient placed on full dose anticoagulation with Eliquis. There is no bleeding. Her hemoglobin been stable. Dr. Christian's notes reviewed. Review of systems: Rest review of systems negative. Medications: Medications have been reviewed. Reason For Visit: ACUTE LOWER GI BLEED, ACUTE BLOOD LOSS ANEMIA, Physical Exam Vital Signs: Temp Pulse Resp BP Pulse Ox 97.5 F 63 20 90/48 L 96 08/08/20 07:52 08/08/20 07:52 08/08/20 07:52 08/08/20 07:52 08/08/20 07:52 Intake & Output 08/07/20 08/08/20 08/09/20 06:59 06:59 06:59 Intake Total 1780 2142 Output Total 6870 5425 Balance -5090 -3288 Weight 79.8 kg 75.7 kg Exam: Patient is looking much better. Abdomen is much softer and less distended. Exam otherwise is unchanged. Lungs remain clear to auscultation. Cardiac exam shows regular heart sounds with a 1/6 to 2/6 ejection systolic murmur. No gallop noted. Results Laboratory Results: 08/08/20 06:15 08/08/20 06:15 08/08/20 08/08/20 06:15 06:15 WBC 7.0 RBC 3.68 L Hgb 10.9 L Hct 32.3 L MCV 88 MCH 29.5 MCHC 33.6 RDW 18.5 H Plt Count 206 Sodium 133.5 L Potassium 4.3 Chloride 92 L Carbon Dioxide 37 H Anion Gap 5 BUN 80 H Creatinine 1.20 Est GFR ( Amer) 58 L Glucose 48 L Calcium 8.7 Magnesium 1.9 08/02/20 19:05 Blood Blood Culture - Final NO GROWTH IN 5 DAYS 08/02/20 17:14 Blood Blood Culture - Final NO GROWTH IN 5 DAYS 08/02/20 08/02/20 08/03/20 17:14 22:52 10:44 Troponin I 0.046 1.870 9.440 08/03/20 08/04/20 18:13 06:08 Troponin I 5.660 3.100 Impressions: Chest X-Ray 08/02/20 17:30 IMPRESSION: Borderline heart size without sumeet pulmonary edema. GI Bleed Scan Nuclear Medicine 08/03/20 00:00 IMPRESSION: NORMAL RADIONUCLIDE GASTROINTESTINAL BLEEDING STUDY. Assessment & Plan - Diagnosis (1) NSTEMI (non-ST elevated myocardial infarction) Is this a current diagnosis for this admission?: Yes (2) Acute on chronic systolic (congestive) heart failure Is this a current diagnosis for this admission?: Yes (3) Acute kidney injury superimposed on CKD Is this a current diagnosis for this admission?: Yes (4) CAD (coronary artery disease) of bypass graft Qualifiers: [place] vs. transplanted heart: [place] heart Is this a current diagnosis for this admission?: Yes (5) Sleep apnea syndrome Qualifiers: Sleep apnea type: unspecified type Qualified Code(s): G47.30 - Sleep apnea, unspecified Is this a current diagnosis for this admission?: Yes - Notes Notes: Non-STEMI: Most likely related to type II [place]. This was precipitated by severe anemia, hypotension rather than a plaque rupture. Patient has done well without any recurrent symptoms to suggest ongoing ischemia. Acute on chronic systolic heart failure: Precipitated by severe anemia. Improved post transfusion and treatment of hemolytic anemia. Acute on chronic kidney disease: Creatinine much improved. Coronary artery disease with history of bypass grafts, stents, previous MIs: Patient would benefit from following up with her regular personnel manager regarding further plans such as repeat stress testing or heart caths etc. These can be arranged as an outpatient if needed. Sleep apnea syndrome: Patient can follow-up with me in this regard. Patient has my card. Obesity: Patient will benefit from weight loss and this was explained. Patient has remained stable from cardiac standpoint. She is now on a stable medical regimen. Will sign off. Please reconsult us if there are any questions. Discussed with hospitalist. - Time Time with patient: 15-25 minutes Medications reviewed and adjusted accordingly: Yes
--- NOTE | 2020-08-08 13:02 | PDOC PROGRESS REPORT ---
Subjective Date:: 08/08/20 Subjective:: She feels tired today. Her breathing is normal. Denies cough or chest pain. Reason For Visit: ACUTE LOWER GI BLEED, ACUTE BLOOD LOSS ANEMIA, Physical Exam Vital Signs: Temp Pulse Resp BP Pulse Ox 97.5 F 63 20 90/48 L 96 08/08/20 07:52 08/08/20 07:52 08/08/20 07:52 08/08/20 07:52 08/08/20 07:52 Intake & Output 08/07/20 08/08/20 08/09/20 06:59 06:59 06:59 Intake Total 1780 2142 Output Total 8576 8090 Balance -8556 -2412 Weight 79.8 kg 75.7 kg General appearance: PRESENT: no acute distress, cooperative Neck exam: ABSENT: JVD Respiratory exam: PRESENT: clear to auscultation amaya, unlabored. ABSENT: tachypnea, wheezes Cardiovascular exam: PRESENT: RRR, +S1, +S2. ABSENT: tachycardia GI/Abdominal exam: PRESENT: soft. ABSENT: rebound, rigid, tenderness Extremities exam: PRESENT: other - b/l amputee Neurological exam: PRESENT: alert, awake, oriented to person, oriented to place, oriented to time Psychiatric exam: ABSENT: agitated, anxious Focused psych exam: ABSENT: pressured speech Skin exam: ABSENT: jaundice Results Laboratory Results: 08/08/20 06:15 08/08/20 06:15 08/08/20 08/08/20 06:15 06:15 WBC 7.0 RBC 3.68 L Hgb 10.9 L Hct 32.3 L MCV 88 MCH 29.5 MCHC 33.6 RDW 18.5 H Plt Count 206 Sodium 133.5 L Potassium 4.3 Chloride 92 L Carbon Dioxide 37 H Anion Gap 5 BUN 80 H Creatinine 1.20 Est GFR ( Amer) 58 L Glucose 48 L Calcium 8.7 Magnesium 1.9 08/02/20 19:05 Blood Blood Culture - Final NO GROWTH IN 5 DAYS 08/02/20 17:14 Blood Blood Culture - Final NO GROWTH IN 5 DAYS 08/02/20 08/02/20 08/03/20 17:14 22:52 10:44 Troponin I 0.046 1.870 9.440 08/03/20 08/04/20 18:13 06:08 Troponin I 5.660 3.100 Impressions: Chest X-Ray 08/02/20 17:30 IMPRESSION: Borderline heart size without sumeet pulmonary edema. GI Bleed Scan Nuclear Medicine 08/03/20 00:00 IMPRESSION: NORMAL RADIONUCLIDE GASTROINTESTINAL BLEEDING STUDY. Assessment and Plan - Diagnosis (1) Hemolytic anemia Qualifiers: Hemolytic anemia type: unspecified autoimmune Qualified Code(s): D59.10 - Autoimmune hemolytic anemia, unspecified Is this a current diagnosis for this admission?: Yes Plan: Patient had EGD and colonoscopy 1 month ago which showed mild gastritis but no evidence of bleeding as well as no evidence of GI bleed source in her colon. GI recommended no indication for repeat endoscopy and recommended tagged red bl ood cell scan which is negative for active bleeding. Patient's did note some dark stools for the past 3 days but this is likely from iron supplements. Aruna is currently on hold Cardiology recommends keeping H&H above 8 so she received another unit of blood today [4units so far] Iron studies last month did not show iron deficiency, consistent with chronic disease. B12 and folic acid were also normal and reticulocyte count was elevated as expected. LDH, initial potassium and phosphate elevated. I have consulted Dr. Tilley and she suspects hemolytic process and recommends starting patient on prednisone 40 mg twice daily which has been initiated. Also recommends direct Nicol test which is negative and flow cytometry for [facility]. We will monitor CBC closely. 08/05/2020 Patient's hemoglobin is stable today. We will continue her high-dose prednisone. Hematology is following to help guide management. Flow cytometry has been sent out. Working diagnosis now remains hemolytic anemia. Monitor CBC. Check LDH in the morning. 08/06/2020 Patient's hemoglobin is looking good. She is responding to treatment with high- dose prednisone. Her LDH is much lower at this morning. 08/07/2020 Hemoglobin continues to look good. Prednisone regimen decreased to 40 mg daily by hematology. 08/08 D/w Dr. Tilley who recommends prednisone 40 mg daily on discharge and weekly CBCs. She will be followed by Dr. Christian as outpatient. (2) NSTEMI (non-ST elevated myocardial infarction) Is this a current diagnosis for this admission?: Yes Plan: Suspected to be type II [place] precipitated by severe anemia. Cardiology following. EF on echo 40 to 45% with inferior wall hypokinesia and grade 3 diastolic dysfunction. 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 Diony Machado (3) Acute on chronic systolic (congestive) heart failure Is this a current diagnosis for this admission?: Yes Plan: Combined systolic and diastolic heart failure. Continue Coreg. Continues to diurese a lot even despite reducing her Bumex dose to 1 mg twice daily. I have held her Bumex this morning due to hypotension. Also held Entresto. I will keep her here today and monitor her blood pressure. Should be able to go home tomorrow but will need to figure out the right amount to avoid dehydration. Renal function is showing remarkable improvement. (4) Acute kidney injury superimposed on chronic kidney disease Is this a current diagnosis for this admission?: Yes Plan: Her creatinine continues to improve with diuresis and actually is currently looking a lot better than her baseline. Continue to monitor I's and O's. Avoid nephrotoxic medications. (5) Nausea and vomiting Qualifiers: Vomiting type: unspecified Vomiting Intractability: non-intractable Qualified Code(s): R11.2 - Nausea with vomiting, unspecified Is this a current diagnosis for this admission?: Yes (6) COPD (chronic obstructive pulmonary disease) Qualifiers: COPD type: unspecified COPD Qualified Code(s): J44.9 - Chronic obstructive pulmonary disease, unspecified Is this a current diagnosis for this admission?: Yes (7) S/P CABG x 3 Is this a current diagnosis for this admission?: Yes Plan: History of CAD. Cardiology recommended switching to Plavix. (8) Paroxysmal atrial fibrillation Is this a current diagnosis for this admission?: Yes Plan: So far not been in A. fib while in the hospital. Status post ablation in 2012. States she has not had any issues with her A. fib since then. Has history of CVA. 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 On chronic Xarelto. Have discussed with cardiology and AC changed to Eliquis / given her recent renal function. (9) Diabetes mellitus type 2 in obese Is this a current diagnosis for this admission?: Yes - Time Time Spent with patient: 15-24 minutes Anticipated Discharge Disposition: Home with Home Health Anticipated Discharge Timeframe: within 24 hours
[2020-08-08] MEDS: ONDANSETRON 4 MG TAB.RAPDIS PO PRN (20:02)
[2020-08-08] MEDS ORDERED: INSULIN GLARGINE,HUM.REC.ANLOG 1,000 UNIT/10 ML VIAL SUBCUT SCH (22:00)
[2020-08-08] MEDS: ATORVASTATIN CALCIUM 80 MG TABLET PO SCH (22:01)
[2020-08-09] MEDS: GABAPENTIN 300 MG CAPSULE PO SCH (05:06)
[2020-08-09 07:08] LABS: ANION GAP 5 (5-19); BLOOD UREA NITROGEN 75 mg/dL (7-20); CALCIUM 8.8 mg/dL (8.4-10.2); CARBON DIOXIDE 34 mmol/L (22-30); CHLORIDE 94 mmol/L (98-107); GLUCOSE 97 mg/dL (75-110); POTASSIUM 4.3 mmol/L (3.6-5.0)
[2020-08-09] MEDS: DOCUSATE SODIUM 100 MG CAPSULE PO SCH (09:52)
[2020-08-09] MEDS: PREDNISONE 20 MG TABLET PO SCH (09:52)
[2020-08-09] MEDS: APIXABAN 5 MG TABLET PO SCH (09:52)
[2020-08-09] MEDS: OMEGA-3 ACID ETHYL ESTERS 1 GM CAPSULE PO SCH (09:52)
[2020-08-09] MEDS: PANTOPRAZOLE SODIUM 40 MG TABLET.DR PO SCH (09:52)
[2020-08-09] MEDS: CITALOPRAM HYDROBROMIDE 20 MG TABLET PO SCH (09:52)
[2020-08-09] MEDS: FENOFIBRATE NANOCRYSTALLIZED 145 MG TABLET PO SCH (09:53)
[2020-08-09] MEDS: MULTIVITAMIN TABLET PO SCH (09:53)
[2020-08-09] MEDS: BUSPIRONE HCL 10 MG TABLET PO SCH (09:53)
[2020-08-09] MEDS: CLOPIDOGREL BISULFATE 75 MG TABLET PO SCH (09:53)
[2020-08-09] MEDS: METOCLOPRAMIDE HCL 10 MG TABLET PO SCH (09:53)
[2020-08-09] MEDS: OXYCODONE HCL IR 5 MG TABLET PO PRN (09:54)
[2020-08-09] MEDS: CARVEDILOL 3.125 MG TABLET PO SCH (09:55)
[2020-08-09] MEDS: SACUBITRIL/VALSARTAN 24 MG/26 MG TABLET PO SCH (09:56)
[2020-08-09] MEDS: SILVER SULFADIAZINE 1% CREAM 25 GM TOP SCH (09:56)
[2020-08-09] MEDS ORDERED: ERGOCALCIFEROL (VITAMIN D2) 50000 UNIT (1.25 MG) CAPSULE PO SCH (10:00)
[2020-08-09] MEDS: INSULIN LISPRO 100 UNIT/ML 3 ML VIAL SUBCUT SCH (10:19)
[2020-08-09] MEDS: INSULIN REG, HUMAN 100 UNIT/ML 3 ML VIAL (PYX) SUBCUT SCH (10:24)
--- NOTE | 2020-08-09 12:51 | PDOC DISCHARGE SUMMARY ---
Impression - Admit/DC Date/PCP Admission Date/Primary Care Provider: 08/02/20 22:43 SALOMON RODRIGUEZ Discharge Date: 08/09/20 - Discharge Diagnosis (1) Hemolytic anemia Is this a current diagnosis for this admission?: Yes (2) NSTEMI (non-ST elevated myocardial infarction) Is this a current diagnosis for this admission?: Yes (3) Acute on chronic systolic (congestive) heart failure Is this a current diagnosis for this admission?: Yes (4) Acute kidney injury superimposed on chronic kidney disease Is this a current diagnosis for this admission?: Yes (5) Nausea and vomiting Is this a current diagnosis for this admission?: Yes (6) COPD (chronic obstructive pulmonary disease) Is this a current diagnosis for this admission?: Yes (7) S/P CABG x 3 Is this a current diagnosis for this admission?: Yes (8) Paroxysmal atrial fibrillation Is this a current diagnosis for this admission?: Yes (9) Diabetes mellitus type 2 in obese Is this a current diagnosis for this admission?: Yes - Additional Information Resuscitation Status: Full Code Discharge Diet: Cardiac, Diabetic Discharge Activity: Activity As Tolerated Referrals: BEE TILLEY MD [ACTIVE STAFF] - (for CBC in 1 week. Please call the office to arrange) MARQUITA BENOIT FNP-C [Primary Care Provider] - Follow up as needed DARCY MACHADO MD [NO LOCAL MD] - 08/11/20 1:40 pm Prescriptions: Docusate Sodium [Colace 100 mg Capsule] 100 mg PO DAILY #30 capsule Prednisone [Deltasone 20 mg Tablet] 40 mg PO QAM 14 Days tablet Apixaban [Eliquis 5 mg Tablet] 5 mg PO Q12 #60 tablet Clopidogrel Bisulfate [Plavix 75 mg Tablet] 75 mg PO DAILY #30 tablet Home Medications: Ascorbic Acid [Vitamin C] 500 mg PO DAILY 06/27/20 Baclofen [Baclofen 10 mg Tablet] 10 mg PO QIDP PRN 06/27/20 Buspirone HCl 7.5 mg PO BID 06/27/20 Carvedilol [Coreg 3.125 mg Tablet] 3.125 mg PO Q12 06/27/20 Citalopram Hydrobromide [Citalopram HBr] 40 mg PO DAILY 06/27/20 Ergocalciferol (Vitamin D2) [Drisdol 50,000 unit (1.25MG) Capsule] 1 cap PO MO@1000 06/27/20 Fenofibrate Nanocrystallized [Tricor 145 mg Tablet] 145 mg PO DAILY 06/27/20 Gabapentin [Neurontin 300 mg Capsule] 600 mg PO Q6 06/27/20 Insulin Glargine,Hum.rec.anlog [Lantus Insulin 100 Unit/1 ml 10 ml] 20 unit SUBCUT QHS 06/27/20 Insulin Regular, Human [Humulin R (Reg) Insulin 100 unit/mL] 8 unit SUBCUT AC 06/27/20 Metoclopramide HCl [Reglan 10 mg Tablet] 10 mg PO ACHS 06/27/20 Multivitamin [Tab-A-Mariela (Multiple Vitamin) Tablet] 1 tab PO DAILY 06/27/20 Nitroglycerin [Nitrostat 0.4 mg (1/150 Gr) Tabs 25/Bottle] 1 tab SL Q5MP PRN 06/27/20 [place]-3 Acid Ethyl Esters [Lovaza 1 gm Capsule] 4 gm PO DAILY 06/27/20 Ondansetron [Zofran Odt 4 mg Tablet] 8 mg PO Q6HP PRN 06/27/20 Oxycodone HCl [Oxy-Ir 5 mg Tablet] 10 mg PO TIDP PRN 06/27/20 Silver Sulfadiazine [Silvadene 1% Cream 25 gm] 1 applic TOP DAILY 06/27/20 Trazodone HCl [Desyrel 50 mg Tablet] 50 mg PO QHS 06/27/20 Atorvastatin Calcium [Lipitor 80 mg Tablet] 80 mg PO QHS tablet 06/30/20 Calcitriol [Rocaltrol] 0.25 mcg PO TUTHSA 08/03/20 Pantoprazole Sodium 40 mg PO DAILY 08/03/20 Sacubitril/Valsartan [Entresto 24 mg/26 mg Tablet] 1 tab PO Q12 08/03/20 Apixaban [Eliquis 5 mg Tablet] 5 mg PO Q12 #60 tablet 08/09/20 Clopidogrel Bisulfate [Plavix 75 mg Tablet] 75 mg PO DAILY #30 tablet 08/09/20 Docusate Sodium [Colace 100 mg Capsule] 100 mg PO DAILY #30 capsule 08/09/20 Prednisone [Deltasone 20 mg Tablet] 40 mg PO QAM 14 Days tablet 08/09/20 History of Present Illiness History of Present Illness: According to admitting provider: HELDER SERNA is a 49 year old female with past medical history significant for HTN, HLD, T2DM, history of CVA with chronic right-sided weakness, history of [place] status post CABG, history of chronic combined CHF, CKD 3B, 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 fib on chronic Xarelto who presents to the ED with 1 day history of severe progressive shortness of breath/nausea/vomiting, found in ED to have a hemoglobin with acute drop down to 4.7. Hemoccult positive in ED. Orders for 2 units PRBC transfusion placed by ED physician. Patient somnolent on admission and rather poor historian due to somnolence. Close hemodynamic monitoring and respiratory monitoring will be required during and after transfusions as patient has significant CHF and may become volume overloaded. General surgery available for emergent endoscopy if patient has continued acute bleeding causing instability. Hospital Course Hospital Course: (1) Hemolytic anemia Qualifiers: Hemolytic anemia type: unspecified autoimmune Qualified Code(s): D59.10 - Autoimmune hemolytic anemia, unspecified Is this a current diagnosis for this admission?: Yes Plan: Patient had EGD and colonoscopy 1 month ago which showed mild gastritis but no evidence of bleeding as well as no evidence of GI bleed source in her colon. GI recommended no indication for repeat endoscopy and recommended tagged red blo od cell scan which is negative for active bleeding. Patient's did note some dark stools for the past 3 days but this is likely from iron supplements. Xarelto is currently on hold Cardiology recommends keeping H&H above 8 so she received another unit of blood today [4units so far] Iron studies last month did not show iron deficiency - iron tabs discontinued, consistent with chronic disease. B12 and folic acid were also normal and reticulocyte count was elevated as expected. LDH, initial potassium and phosphate elevated. I have consulted Dr. Tilley and she suspects hemolytic process and recommends starting patient on prednisone 40 mg twice daily which has been initiated. Also recommends direct Nicol test which is negative and flow cytometry for PNH. We will monitor CBC closely. 08/05/2020 Patient's hemoglobin is stable today. We will continue her high-dose prednisone. Hematology is following to help guide management. Flow cytometry has been sent out. Working diagnosis now remains hemolytic anemia. Monitor CBC. Check LDH in the morning. 08/06/2020 Patient's hemoglobin is looking good. She is responding to treatment with high- dose prednisone. Her LDH is much lower at this morning. 08/07/2020 Hemoglobin continues to look good. Prednisone regimen decreased to 40 mg daily by hematology. 08/08 D/w Dr. Tilley who recommends prednisone 40 mg daily on discharge and weekly CBCs. She will be followed by Dr. Christian as outpatient. 08/09 set up for blood draws. Will be faxed to Dr. Tilley for management of prednisone taper. [facility] labs still pending at time of discharge. (2) NSTEMI (non-ST elevated myocardial infarction) Is this a current diagnosis for this admission?: Yes Plan: Troponin peaked at 9 and declined subsequently. Evaluated by cardiology and thought to be type II [place] precipitated by severe anemia. EF on echo 40 to 45% with inferior wall hypokinesia and grade 3 diastolic dysfunction. Outpatient follow-up with her primary bank vault clerk Dr. Darcy Machado in 1 week (3) Acute on chronic systolic (congestive) heart failure Is this a current diagnosis for this admission?: Yes Plan: Combined systolic and diastolic heart failure. Continue Coreg and Entresto. She has diuresed a whole lot since being here and totally net -15L.she only received IV diuresis on the first day during blood transfusion but then transitioned to her home regimen of Bumex 3 mg twice daily. Interestingly, patient started to diurese very heavily with improvement in renal function. Later had decrease her Bumex to 1 mg twice daily to avoid dehydration. Her creatinine continue to improve. 1 mg dosing, she diuresed almost 5 L at which point I held her Bumex. Off Bumex, she still diuresed continues to diurese over 3 L yesterday so cardiology recommends to keep her Bumex on hold for now while continuing her Coreg and Entresto and have her follow-up with her primary bank vault clerk in 1 week for reassessment. Blood pressure is adequate today. (4) Acute kidney injury superimposed on chronic kidney disease Is this a current diagnosis for this admission?: Yes Plan: Her creatinine continues to improve with diuresis and actually is currently looking a lot better than her baseline. Last measured today is 1.3. I suspect that she may have had ATN superimposed on chronic kidney disease and is now in the recovery phase and having post ATN diuresis as she seems to be autodiuresing even after holding Bumex. Avoid nephrotoxic medications. (5) Nausea and vomiting Qualifiers: Vomiting type: unspecified Vomiting Intractability: non-intractable Qualified Code(s): R11.2 - Nausea with vomiting, unspecified Is this a current diagnosis for this admission?: Yes (6) COPD (chronic obstructive pulmonary disease) Qualifiers: COPD type: unspecified COPD Qualified Code(s): J44.9 - Chronic obstructive pulmonary disease, unspecified Is this a current diagnosis for this admission?: Yes (7) S/P CABG x 3 Is this a current diagnosis for this admission?: Yes Plan: History of CAD. Cardiology recommended switching aspirin to Plavix. (8) Paroxysmal atrial fibrillation Is this a current diagnosis for this admission?: Yes Plan: So far not been in A. fib while in the hospital. Status post ablation in 2012. States she has not had any issues with her A. fib since then. Has history of CVA. 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 On chronic Xarelto. Have discussed with cardiology and AC changed to Eliquis 5/ given her fluctuating renal function. (9) Diabetes mellitus type 2 in obese Is this a current diagnosis for this admission?: Yes Physical Exam Vital Signs: Temp Pulse Resp BP Pulse Ox 98.3 F 65 16 109/54 L 99 08/09/20 08:39 08/09/20 08:39 08/09/20 08:39 08/09/20 08:39 08/09/20 08:39 Intake & Output 08/08/20 08/09/20 08/10/20 06:59 06:59 06:59 Intake Total 2142 1170 Output Total 5466 3300 Balance -3283 -2130 Weight 75.7 kg 75.6 kg General appearance: PRESENT: no acute distress, cooperative Neck exam: ABSENT: JVD Respiratory exam: PRESENT: clear to auscultation amaya, unlabored Cardiovascular exam: PRESENT: RRR, +S1, +S2. ABSENT: tachycardia GI/Abdominal exam: PRESENT: soft. ABSENT: rebound, rigid, tenderness Extremities exam: PRESENT: other - bilateral amputee Neurological exam: PRESENT: alert, awake, oriented to person, oriented to place, oriented to time, oriented to situation Results Laboratory Results: WBC 7.0 10^3/uL (4.0-10.5) 08/08/20 06:15 RBC 3.68 10^6/uL (3.72-5.28) L 08/08/20 06:15 Hgb 10.9 g/dL (12.0-15.5) L 08/08/20 06:15 Hct 32.3 % (36.0-47.0) L 08/08/20 06:15 MCV 88 fl (80-97) 08/08/20 06:15 MCH 29.5 pg (27.0-33.4) 08/08/20 06:15 MCHC 33.6 g/dL (32.0-36.0) 08/08/20 06:15 RDW 18.5 % (11.5-14.0) H 08/08/20 06:15 Plt Count 206 10^3/uL (150-450) 08/08/20 06:15 Lymph % (Auto) 9.2 % (13-45) L 08/06/20 05:42 Coke % (Auto) 5.4 % (3-13) 08/06/20 05:42 Eos % (Auto) 0.1 % (0-6) 08/06/20 05:42 Baso % (Auto) 0.1 % (0-2) 08/06/20 05:42 Absolute Neuts (auto) 3.2 10^3/uL (1.7-8.2) 08/06/20 05:42 Absolute Lymphs (auto) 0.3 10^3/uL (0.5-4.7) L 08/06/20 05:42 Absolute Monos (auto) 0.2 10^3/uL (0.1-1.4) 08/06/20 05:42 Absolute Eos (auto) 0.0 10^3/uL (0.0-0.6) 08/06/20 05:42 Absolute Basos (auto) 0.0 10^3/uL (0.0-0.2) 08/06/20 05:42 Total Counted 100 08/04/20 18:23 Seg Neutrophils % 85.2 % (42-78) H 08/06/20 05:42 Seg Neuts % (Manual) 99 % (42-78) H 08/04/20 18:23 Lymphocytes % (Manual) 1 % (13-45) L 08/04/20 18:23 Monocytes % (Manual) 0 % (3-13) L 08/04/20 18:23 Eosinophils % (Manual) 0 % (0-6) 08/04/20 18:23 Basophils % (Manual) 0 % (0-2) 08/04/20 18:23 Abs Neuts (Manual) 8.1 10^3/uL (1.7-8.2) 08/04/20 18:23 Abs Lymphs (Manual) 0.1 10^3/uL (0.5-4.7) L 08/04/20 18: Abs Monocytes (Manual) 0.0 10^3/uL (0.1-1.4) L 08/04/20 18:23 Absolute Eos (Manual) 0.0 10^3/uL (0.0-0.6) 08/04/20 18:23 Abs Basophils (Manual) 0.0 10^3/uL (0.0-0.2) 08/04/20 18:23 Platelet Estimate Cancelled 08/02/20 17:14 Clumped Platelets PRESENT 08/02/20 19:05 Platelet Comment ADEQUATE 08/04/20 18:23 Polychromasia 1+ 08/02/20 19:05 Anisocytosis 1+ 08/04/20 18:23 Ovalocytes SLIGHT 08/04/20 18:23 Schistocytes SLIGHT 08/04/20 18:23 Haptoglobin 172 mg/dL (42-296) 08/03/20 10:44 PT 20.7 SEC (11.4-15.4) H 08/03/20 10:44 INR 1.77 08/03/20 10:44 APTT 34.1 SEC (23.5-35.8) 08/03/20 10:44 Carbonic Acid 1.12 mmol/L (1.05-1.35) 08/02/20 19:01 HCO3/H2CO3 Ratio 18:1 08/02/20 19:01 ABG pH 7.35 (7.35-7.45) 08/02/20 19:01 ABG pCO2 37.2 mmHg (35-45) 08/02/20 19:01 ABG pO2 158.6 mmHg (80-100) H 08/02/20 19:01 ABG HCO3 20.2 mmol/L (20-24) 08/02/20 19:01 ABG Total CO2 21.4 mmol/L (21-25) 08/02/20 19:01 ABG O2 Saturation 99.0 % (94-98) H 08/02/20 19:01 ABG Base Excess -4.9 mmol/L 08/02/20 19:01 FiO2 4L 08/02/20 19:01 Sodium 133.0 mmol/L (137-145) L 08/09/20 06:17 Potassium 4.3 mmol/L (3.6-5.0) 08/09/20 06:17 Chloride 94 mmol/L (98-107) L 08/09/20 06:17 Carbon Dioxide 34 mmol/L (22-30) H 08/09/20 06:17 Anion Gap 5 (5-19) 08/09/20 06:17 BUN 75 mg/dL (7-20) H 08/09/20 06:17 Creatinine 1.33 mg/dL (0.52-1.25) H 08/09/20 06:17 Est GFR ( Amer) 51 (>60) L 08/09/20 06:17 Est GFR (MDRD) Non-Af 42 (>60) L 08/09/20 06:17 Glucose 97 mg/dL (75-110) 08/09/20 06:17 POC Glucose 166 mg/dL (70-110) H 08/09/20 11:05 Lactic Acid 1.8 mmol/L (0.7-2.1) 08/02/20 22:52 Calcium 8.8 mg/dL (8.4-10.2) 08/09/20 06:17 Phosphorus 5.4 mg/dL (2.5-4.5) H 08/05/20 06:36 Magnesium 2.0 mg/dL (1.6-2.3) 08/09/20 06:17 Total Bilirubin 0.6 mg/dL (0.2-1.3) 08/02/20 17:14 Direct Bilirubin 0.5 mg/dL (0.0-0.4) H 08/02/20 17:14 Neonat Total Bilirubin Not Reportable 08/02/20 17:14 Neonat Direct Bilirubin Not Reportable 08/02/20 17:14 Neonat Indirect Bili Not Reportable 08/02/20 17:14 AST 139 U/L (14-36) H 08/02/20 17:14 ALT 35 U/L (<35) 08/02/20 17:14 Alkaline Phosphatase 46 U/L (38-126) 08/02/20 17:14 Lactate Dehydrogenase 287 U/L (120-246) H 08/06/20 05:42 Troponin I 3.100 ng/mL 08/04/20 06:08 Total Protein 6.1 g/dL (6.3-8.2) L 08/02/20 17:14 Albumin 3.4 g/dL (3.5-5.0) L 08/02/20 17:14 Urine Color YELLOW 08/02/20 20:52 Urine Appearance CLEAR 08/02/20 20:52 Urine pH 5.0 (5.0-9.0) 08/02/20 20:52 Ur Specific [place] 1.017 08/02/20 20:52 Urine Protein 100 mg/dL (NEGATIVE) H 08/02/20 20:52 Urine Glucose (UA) NEGATIVE mg/dL (NEGATIVE) 08/02/20 20:52 Urine Ketones NEGATIVE mg/dL (NEGATIVE) 08/02/20 20:52 Urine Blood NEGATIVE (NEGATIVE) 08/02/20 20:52 Urine Nitrite NEGATIVE (NEGATIVE) 08/02/20 20:52 Urine Bilirubin NEGATIVE (NEGATIVE) 08/02/20 20:52 Urine Urobilinogen NEGATIVE mg/dL (<2.0) 08/02/20 20:52 Ur Leukocyte Esterase NEGATIVE (NEGATIVE) 08/02/20 20:52 Urine WBC (Auto) 0 /HPF 08/02/20 20:52 Urine RBC (Auto) 1 /HPF 08/02/20 20:52 U Hyaline Cast (Auto) 15 /LPF 08/02/20 20:52 Squamous Epi Cells Auto <1 /HPF 08/02/20 20:52 Urine Mucus (Auto) RARE /LPF 08/02/20 20:52 Urine Ascorbic Acid 40 (NEGATIVE) H 08/02/20 20:52 Influenza A (RT-PCR) NEGATIVE (NEGATIVE) 08/02/20 21:35 Influenza B (RT-PCR) NEGATIVE (NEGATIVE) 08/02/20 21:35 RSV (RT-PCR) NEGATIVE (NEGATIVE) 08/02/20 21:35 SARS-CoV-2 Rap RNA(RT-PCR) NEGATIVE (NEGATIVE) 08/02/20 21:35 Slides for Path Review PATHOLOGIST REVIEWED 08/02/20 19:05 Blood Type O POSITIVE 08/02/20 19:05 Blood Type Confirm O POSITIVE 08/02/20 19:05 Antibody Screen NEGATIVE 08/02/20 19:05 Direct Antiglob Test NEGATIVE 08/04/20 10:42 Crossmatch See Detail 08/02/20 19:05 08/02/20 08/02/20 08/03/20 17:14 22:52 10:44 Troponin I 0.046 1.870 9.440 08/03/20 08/04/20 18:13 06:08 Troponin I 5.660 3.100 Impressions: Chest X-Ray 08/02/20 17:30 IMPRESSION: Borderline heart size without sumeet pulmonary edema. GI Bleed Scan Nuclear Medicine 08/03/20 00:00 IMPRESSION: NORMAL RADIONUCLIDE GASTROINTESTINAL BLEEDING STUDY. Plan Plan of Treatment: You were treated for the following condition: Hemolytic anemia, Heart failure, Worsening kidney function. Please notes the changes that were made to your medication regimen: Stop aspirin. Start Plavix. Stop Xarelto due to fluctuating kidney failure. Start Eliquis in replacement of this. Continue Entresto and carvedilol The bank vault clerk recommends holding off on taking Bumex for now because you have been putting out a whole lot of urine to avoid dehydrating you. Please discuss with your bank vault clerk or kidney doctor in 1 week about resuming the Bumex. Please keep track of how much urine you put out each day and monitor your blood pressure. For your anemia, you will be following up with Dr. Choudhury to monitor your blood counts. Your anemia was thought to be due to to breakdown of red blood cells rather than bleeding. Stop taking the iron supplements. You have been put on steroids called prednisone to reduce the attack on your red blood cells. Dr. Tilley will be managing this. A home nurse will be set up to check your blood count in 1 week. Time Spent: Greater than 30 Minutes Stroke Is this a Stroke Patient?: No Acute Heart Failure Is this a Heart Failure Patient?: Yes Documentation of LVEF assessment?: Yes LVEF: LVEF Less Than or Equal to 40% Anticoagulant Therapy: Yes Discharged on Evidence-Based Beta Blockers: Yes Discharged on ARNI?: Yes Discharged on ARB?: N/A-Discharged on ARNI For LVEF <35%, discharged on Aldosterone Antagonist?: N/A (LVEF > or = 35%) Follow-up Appointment scheduled within 7 days?: Yes
[2020-08-09 13:29] VITALS: BP 131/73
== END 2020-08-09 13:49 | disposition home health service (06) | DRG 808 ==
LOC: ER 15:16 → EH 22:43 → 5TH 08-03 01:28 → 3W 08-05 17:49
PROVIDERS: ADMIT Internal Medicine; ATTEND Internal Medicine
PROC: 30233N1 Transfusion of Nonautologous Red Blood Cells into Peripheral Vein, Percutaneous Approach (ICD-10-PCS; principal; 2020-08-02)
DX: D59.10 Autoimmune hemolytic anemia, unspecified (principal); I21.A1 Myocardial infarction type 2; I50.43 Acute on chronic combined systolic (congestive) and diastolic (congestive) heart failure; I48.21 Permanent atrial fibrillation; I13.0 Hypertensive heart and chronic kidney disease with heart failure and stage 1 through stage 4 chronic kidney disease, or unspecified chronic kidney disease; N17.9 Acute kidney failure, unspecified; N18.4 Chronic kidney disease, stage 4 (severe); Z68.43 Body mass index [BMI] 50.0-59.9, adult; I69.351 Hemiplegia and hemiparesis following cerebral infarction affecting right dominant side; Z95.1 Presence of aortocoronary bypass graft; Z79.01 Long term (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 of anticoagulants; Z88.8 Allergy status to other drugs, medicaments and biological substances; I25.10 Atherosclerotic heart disease of native coronary artery without angina pectoris; Z83.3 Family history of diabetes mellitus; Z82.49 Family history of ischemic heart disease and other diseases of the circulatory system; I25.2 Old myocardial infarction; Z86.718 Personal history of other venous thrombosis and embolism; E11.51 Type 2 diabetes mellitus with diabetic peripheral angiopathy without gangrene; K21.9 Gastro-esophageal reflux disease without esophagitis; I48.0 Paroxysmal atrial fibrillation; M19.90 Unspecified osteoarthritis, unspecified site; J44.9 Chronic obstructive pulmonary disease, unspecified; F41.9 Anxiety disorder, unspecified; F32.9 Major depressive disorder, single episode, unspecified; E78.5 Hyperlipidemia, unspecified; E11.22 Type 2 diabetes mellitus with diabetic chronic kidney disease; Z89.512 Acquired absence of left leg below knee; Z89.511 Acquired absence of right leg below knee; Z79.82 Long term (current) use of aspirin; Z79.899 Other long term (current) drug therapy; E66.01 Morbid (severe) obesity due to excess calories; T38.0X5A Adverse effect of glucocorticoids and synthetic analogues, initial encounter; E11.65 Type 2 diabetes mellitus with hyperglycemia; G47.30 Sleep apnea, unspecified; Z20.822 Contact with and (suspected) exposure to COVID-19
CPT/HCPCS: 36415; 36430; 71045; 78278; 80048; 80053; 81001; 82803; 82962; 83010; 83605; 83615; 83735; 84100; 84484; 85025; 85027; 85610; 85730; 86850; 86880; 86900; 86901; 86920; 87040; 87086; 93005; 93010; 93306; 96361; 96374; 99285; 0241U; A9560; C9113; C9803; J1642; J1815; J2405; J3490; J7120; J7512; P9016; Q9969; S0119